=== PATIENT | male | born 1955 | race Caucasian/White ===

== ENCOUNTER 2017-12-22 14:40 | Inpatient (IN) | payer MEDICAID ==
[2017-12-22] MEDS ORDERED: Sodium Chloride 0.9% 1,000 ML IV ONE (16:23)
[2017-12-22 16:56] LABS: BASO # 0.1 K/uL (0.0-0.2); BASO % 0.9 % (0.0-2.0); EOS # 0.3 K/uL (0.0-0.7); EOS % 3.8 % (0.0-4.0); HEMOGLOBIN 12.4 g/dL (12.0-18.0); LYMPH # 1.8 K/uL (1.0-4.3); LYMPH % 23.9 % (20.0-40.0); MEAN CELL VOLUME 88.1 fL (80.0-94.0); MEAN CORPUSCULAR HGB CONC 35.2 g/dL (33.0-37.0); MEAN PLATELET VOLUME 6.4 fL (7.2-11.7); MONO # 0.6 K/uL (0.0-0.8); MONO % 8.1 % (0.0-10.0); NEUT # 4.7 K/uL (1.8-7.0); NEUT % 63.3 % (50.0-75.0); NRBC % 0.1 % (0.0-2.0); RED CELL DISTRIBUTION WIDTH 14.1 % (11.5-14.5); WHITE BLOOD COUNT 7.5 K/uL (4.8-10.8)
[2017-12-22 17:01] LABS: INR 1.1; PROTHROMBIN TIME 11.9 SECONDS (9.7-12.2)
--- NOTE | 2017-12-22 17:13 | C.PDOC ---
History Of Present Illness 62 yo male c/o left great toe wound. Pt notes that he has had a wound to the left toe for 8-10 months. It started out as a small punture wound and has undergoing treatment with podiatry, Dr Saba including XR and vascular studies. 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 Notes this sugar in usually around 100. No new trauma. Denies fever, chest pain, abdominal pain or any other symptoms. Time Seen by Provider: 12/22/17 15:20 Chief Complaint (Nursing): Abnormal Skin Integrity History Per: Patient, Family (family used for translation) History/Exam Limitations: no limitations Onset/Duration Of Symptoms: Gradual Past Medical History Vital Signs: Last Vital Signs Temp 98.3 F 12/22/17 21:00 Pulse 51 L 12/22/17 21:00 Resp 20 12/22/17 21:00 BP 190/76 H 12/22/17 21:00 Pulse Ox 100 12/22/17 21:00 - Medical History PMH: HTN, Hypercholesterolemia Family History: States: Unknown Family Hx - Social History Hx Alcohol Use: No Hx Substance Use: No Review Of Systems Except As Marked, All Systems Reviewed And Found Negative. Physical Exam - Physical Exam Appears: Well, Non-toxic, No Acute Distress Skin: Warm, Dry, Other ((+) 3 cm area of necrosis to the plantar aspect of the great toe) Head: Atraumatic, Normacephalic Eye(s): bilateral: Normal Inspection, EOMI Nose: Normal Throat: Normal Neck: Normal Cardiovascular: Rhythm Regular Respiratory: Normal Breath Sounds Gastrointestinal/Abdominal: Normal Exam Back: Normal Inspection Extremity: Normal ROM Pulses: Left Dorsalis Pedis: Decreased Neurological/Psych: Oriented x3, Normal Speech, Normal Sensation ED Course And Treatment - Laboratory Results Result Diagrams: 12/22/17 16:47 12/22/17 16:47 O2 Sat by Pulse Oximetry: 99 Progress Note: Case discussed with Dr Deluna, agreed upon admission. Dr Babs Saba was called and VM left, no call back. Disposition - Disposition Disposition: HOSPITALIZED Disposition Time: 17:18 Condition: STABLE - Clinical Impression Clinical Impression: Nonhealing ulcer of left lower extremity, Osteomyelitis
[2017-12-22 17:26] LABS: ALB/GLOB RATIO 1.2 (1.0-2.1); ALT/SGPT 25 U/L (21-72); AST/SGOT 23 U/L (17-59); BLOOD UREA NITROGEN 17 mg/dL (9-20); CALCIUM 9.6 mg/dl (8.6-10.4); GFR AFRICAN-AMERICAN > 60; GFR NON-AFRICAN AMERICAN > 60
--- NOTE | 2017-12-22 18:46 | RAD ---
PROCEDURE: Radiographs of the left great toe. TECHNIQUE:: AP radiograph of the left foot, with oblique and lateral view of the left great toe. Relevant clinical history: Left toe necrosis. COMPARISON: None. FINDINGS: BONES: Cortical irregularity best seen on the lateral view which may represent early osteomyelitis. JOINTS: Normal. SOFT TISSUES: Soft tissue swelling confined to the distal aspect of the 1st digit. OTHER FINDINGS: None. IMPRESSION: Cortical irregularity distal phalanx 1st digit. Associated soft tissue swelling. Suspicious findings for acute osteomyelitis.
[2017-12-22] MEDS ORDERED: Piperacillin/Tazobact 3.375 gm 100 ML IV STA (19:29)
[2017-12-22] MEDS ORDERED: Piperacillin/Tazobact 3.375 gm 100 ML IVPB ONE (19:44)
[2017-12-22] MEDS: (Novolog) Insulin Aspart, Recombinant 100 u/ml 10 ml vial SC SCH (22:00)
--- NOTE | 2017-12-22 23:12 | CP.PCM.HP ---
Past Patient History - Past Social History Smoking Status: Unknown If Ever Smoked - CARDIAC Hx Hypercholesterolemia: Yes Hx Hypertension: Yes - ENDOCRINE/METABOLIC Hx Endocrine Disorders: Yes Hx Diabetes Mellitus Type 2: Yes - MUSCULOSKELETAL/RHEUMATOLOGICAL Hx Falls: No - PSYCHIATRIC Hx Substance Use: No - SURGICAL HISTORY Hx Surgeries: Yes Hx Eye Surgery: Yes - ANESTHESIA Hx Anesthesia: Yes Meds Allergies/Adverse Reactions: Allergies Allergy/AdvReac Type Severity Reaction Status Date / Time No Known Allergies Allergy Verified 12/22/17 15:47 Results - Vital Signs Recent Vital Signs: Last Vital Signs Temp 98.3 F 12/22/17 21:00 Pulse 51 L 12/22/17 21:00 Resp 20 12/22/17 21:00 BP 190/76 H 12/22/17 21:00 Pulse Ox 99 12/22/17 21:30 - Labs Result Diagrams: 12/22/17 16:47 12/22/17 16:47 Labs: Laboratory Results - last 24 hr 12/22/17 12/22/17 12/22/17 16:47 16:47 16:47 WBC 7.5 RBC 4.00 L Hgb 12.4 Hct 35.2 MCV 88.1 MCH 31.0 MCHC 35.2 RDW 14.1 Plt Count 490 H MPV 6.4 L Neut % (Auto) 63.3 Lymph % (Auto) 23.9 [place] % (Auto) 8.1 Eos % (Auto) 3.8 Baso % (Auto) 0.9 Neut # (Auto) 4.7 Lymph # (Auto) 1.8 [place] # (Auto) 0.6 Eos # (Auto) 0.3 Baso # (Auto) 0.1 PT 11.9 INR 1.1 APTT 36 H Sodium 133 Potassium 5.3 H Chloride 96 L Carbon Dioxide 26 Anion Gap 16 BUN 17 Creatinine 0.9 Est GFR ( Amer) > 60 Est GFR (Non-Af Amer) > 60 Random Glucose 189 H Calcium 9.6 Total Bilirubin 0.4 AST 23 ALT 25 Alkaline Phosphatase 43 Total Protein 7.4 Albumin 4.0 Globulin 3.4 Albumin/Globulin Ratio 1.2 Blood Type Antibody Screen 12/22/17 16:47 WBC RBC Hgb Hct MCV MCH MCHC RDW Plt Count MPV Neut % (Auto) Lymph % (Auto) [place] % (Auto) Eos % (Auto) Baso % (Auto) Neut # (Auto) Lymph # (Auto) [place] # (Auto) Eos # (Auto) Baso # (Auto) PT INR APTT Sodium Potassium Chloride Carbon Dioxide Anion Gap BUN Creatinine Est GFR ( Amer) Est GFR (Non-Af Amer) Random Glucose Calcium Total Bilirubin AST ALT Alkaline Phosphatase Total Protein Albumin Globulin Albumin/Globulin Ratio Blood Type A POSITIVE Antibody Screen Negative
[2017-12-23] MEDS: Piperacill/Tazo 3.375gm in Dex 3.375 GM/50 ML BAG IVPB SCH ×3 (03:10→20:22)
--- NOTE | 2017-12-23 06:06 | CP.PCM.CON ---
History of Present Illness - History of Present Illness History of Present Illness: Surgery: Dr. Haro Reason for consult: left foot wound HPI: Patient is a 62 y/o male who presents complaining of a left foot wound for the past 8 months. He reports the wound was originally small but progressed and has not healed overtime. He reports seeing Podiatry for local wound care but because the wound was not healing they recommended ER evaluation. he denies f/c/ n/v. He denies purulent drainage from wound. PMH: HTN, HLD, DM PSH: denies Social: denies ETOH, tobacco, or drug use Review of Systems - Review of Systems Review of Systems: otherwise negative unless stated in HPI Past Patient History - Past Social History Smoking Status: Never Smoked - CARDIAC Hx Hypercholesterolemia: Yes Hx Hypertension: Yes - ENDOCRINE/METABOLIC Hx Endocrine Disorders: Yes Hx Diabetes Mellitus Type 2: Yes - MUSCULOSKELETAL/RHEUMATOLOGICAL Hx Falls: No - PSYCHIATRIC Hx Substance Use: No - SURGICAL HISTORY Hx Surgeries: Yes Hx Eye Surgery: Yes - ANESTHESIA Hx Anesthesia: Yes Meds Allergies/Adverse Reactions: Allergies Allergy/AdvReac Type Severity Reaction Status Date / Time No Known Allergies Allergy Verified 12/22/17 15:47 - Medications Medications: Current Medications Amlodipine Besylate (Norvasc) 10 mg PO DAILY [facility] Enoxaparin Sodium (Lovenox) 40 mg SC DAILY [facility] Glimepiride (Amaryl) 2 mg PO BID [facility] Piperacillin Sod/Tazobactam Sod (Zosyn 3.375 Gm Iv Premix) 3.375 gm in 50 mls @ 200 mls/hr IVPB Q8H DIA PRN Reason: Protocol Last Admin: 12/23/17 03:10 Dose: 200 mls/hr Vancomycin/Sodium Chloride (Vancomycin 1 Gm/Ns 200 Ml) 1 gm in 200 mls @ 133 mls/hr IVPB Q12H DIA PRN Reason: Protocol Stop: 12/27/17 23:31 Last Admin: 12/23/17 00:00 Dose: 133 mls/hr Insulin Aspart (Novolog) 0 unit SC ACHS [facility] PRN Reason: Protocol Last Admin: 12/22/17 22:00 Dose: Not Given Metformin HCl (Glucophage) 500 mg PO BID [facility] Pioglitazone HCl (Actos) 15 mg PO BID [facility] Physical Exam - Constitutional Appears: Non-toxic, No Acute Distress - Head Exam Head Exam: ATRAUMATIC, NORMOCEPHALIC - Eye Exam Eye Exam: EOMI, Normal appearance - ENT Exam ENT Exam: Mucous Membranes Moist - Respiratory Exam Respiratory Exam: NORMAL BREATHING PATTERN. absent: Respiratory Distress - Cardiovascular Exam Cardiovascular Exam: REGULAR RHYTHM. absent: Tachycardia - GI/Abdominal Exam GI & Abdominal Exam: Soft. absent: Distended, Tenderness - Extremities Exam Extremities exam: Positive for: normal inspection. Negative for: calf tenderness Additional comments: palpable pulses DP bilaterally. Dry gangrene to plantar surface of left great toe Results - Vital Signs Recent Vital Signs: Last Vital Signs Temp 98.5 F 12/23/17 00:00 Pulse 60 12/23/17 00:00 Resp 20 12/23/17 00:00 BP 179/69 H 12/23/17 00:00 Pulse Ox 97 12/23/17 00:00 - Labs Result Diagrams: 12/22/17 16:47 12/22/17 16:47 Labs: Laboratory Results - last 24 hr 12/22/17 12/22/17 12/22/17 16:47 16:47 16:47 WBC 7.5 RBC 4.00 L Hgb 12.4 Hct 35.2 MCV 88.1 MCH 31.0 MCHC 35.2 RDW 14.1 Plt Count 490 H MPV 6.4 L Neut % (Auto) 63.3 Lymph % (Auto) 23.9 [place] % (Auto) 8.1 Eos % (Auto) 3.8 Baso % (Auto) 0.9 Neut # (Auto) 4.7 Lymph # (Auto) 1.8 [place] # (Auto) 0.6 Eos # (Auto) 0.3 Baso # (Auto) 0.1 PT 11.9 INR 1.1 APTT 36 H Sodium 133 Potassium 5.3 H Chloride 96 L Carbon Dioxide 26 Anion Gap 16 BUN 17 Creatinine 0.9 Est GFR ( Amer) > 60 Est GFR (Non-Af Amer) > 60 Random Glucose 189 H Calcium 9.6 Total Bilirubin 0.4 AST 23 ALT 25 Alkaline Phosphatase 43 Total Protein 7.4 Albumin 4.0 Globulin 3.4 Albumin/Globulin Ratio 1.2 Blood Type Antibody Screen 12/22/17 16:47 WBC RBC Hgb Hct MCV MCH MCHC RDW Plt Count MPV Neut % (Auto) Lymph % (Auto) [place] % (Auto) Eos % (Auto) Baso % (Auto) Neut # (Auto) Lymph # (Auto) [place] # (Auto) Eos # (Auto) Baso # (Auto) PT INR APTT Sodium Potassium Chloride Carbon Dioxide Anion Gap BUN Creatinine Est GFR ( Amer) Est GFR (Non-Af Amer) Random Glucose Calcium Total Bilirubin AST ALT Alkaline Phosphatase Total Protein Albumin Globulin Albumin/Globulin Ratio Blood Type A POSITIVE Antibody Screen Negative Assessment & Plan - Assessment and Plan (Free Text) Assessment: 62 y/o male w/ nonhealing left foot wound Plan: r/o vascular disease ABIs/PVRs local wound care- may need local debridement Podiatry consult pending results determine further surgical intervention further recs per Dr. Estrellita Milligan PGY3
[2017-12-23] MEDS: (Novolog) Insulin Aspart, Recombinant 100 u/ml 10 ml vial SC SCH ×4 (07:30→22:26)
[2017-12-23] MEDS: Enoxaparin 40 mg Syringe SC SCH (09:07)
--- NOTE | 2017-12-23 09:36 | CP.PCM.PN ---
Subjective - Date & Time of Evaluation Date of Evaluation: 12/23/17 Time of Evaluation: 07:40 - Subjective Subjective: clinically same Objective - Vital Signs/Intake and Output Vital Signs (last 24 hours): Temp Pulse Resp BP Pulse Ox 98.1 F 60 21 114/45 L 95 12/23/17 07:00 12/23/17 07:00 12/23/17 07:00 12/23/17 07:00 12/23/17 07:00 Intake and Output: 12/23/17 12/23/17 06:59 18:59 Intake Total 1100 Balance 1100 - Medications Medications: Current Medications Amlodipine Besylate (Norvasc) 10 mg PO DAILY [facility] Enoxaparin Sodium (Lovenox) 40 mg SC DAILY [facility] Last Admin: 12/23/17 09:07 Dose: 40 mg Glimepiride (Amaryl) 2 mg PO BID [facility] Last Admin: 12/23/17 09:06 Dose: 2 mg Piperacillin Sod/Tazobactam Sod (Zosyn 3.375 Gm Iv Premix) 3.375 gm in 50 mls @ 200 mls/hr IVPB Q8H DIA PRN Reason: Protocol Last Admin: 12/23/17 03:10 Dose: 200 mls/hr Vancomycin/Sodium Chloride (Vancomycin 1 Gm/Ns 200 Ml) 1 gm in 200 mls @ 133 mls/hr IVPB Q12H DIA PRN Reason: Protocol Stop: 12/27/17 23:31 Last Admin: 12/23/17 00:00 Dose: 133 mls/hr Insulin Aspart (Novolog) 0 unit SC ACHS DIA PRN Reason: Protocol Last Admin: 12/23/17 07:30 Dose: 1 unit Metformin HCl (Glucophage) 500 mg PO BID [facility] Last Admin: 12/23/17 09:06 Dose: 500 mg Pioglitazone HCl (Actos) 15 mg PO BID [facility] - Labs Labs: 12/22/17 16:47 12/22/17 16:47 PT 11.9 SECONDS (9.7-12.2) 12/22/17 16:47 INR 1.1 12/22/17 16:47 APTT 36 SECONDS (21-34) H 12/22/17 16:47 - Constitutional Appears: Well - Head Exam Head Exam: ATRAUMATIC, NORMAL INSPECTION, NORMOCEPHALIC - Eye Exam Eye Exam: EOMI, Normal appearance, PERRL Pupil Exam: NORMAL ACCOMODATION, PERRL - ENT Exam ENT Exam: Mucous Membranes Moist, Normal Exam - Neck Exam Neck Exam: Full ROM, Normal Inspection. absent: Lymphadenopathy - Respiratory Exam Respiratory Exam: Decreased Breath Sounds - Cardiovascular Exam Cardiovascular Exam: REGULAR RHYTHM, +S1, +S2 - GI/Abdominal Exam GI & Abdominal Exam: Soft, Diminished Bowel Sounds - Rectal Exam Rectal Exam: Deferred
--- NOTE | 2017-12-23 10:37 | CP.PCM.PN ---
Subjective - Date & Time of Evaluation Date of Evaluation: 12/23/17 Time of Evaluation: 10:36 - Subjective Subjective: awating dopplers I am unable to palpate pulses established gangrene of great toe left Objective - Vital Signs/Intake and Output Vital Signs (last 24 hours): Temp Pulse Resp BP Pulse Ox 98.1 F 60 21 114/45 L 95 12/23/17 07:00 12/23/17 07:00 12/23/17 07:00 12/23/17 07:00 12/23/17 07:00 Intake and Output: 12/23/17 12/23/17 06:59 18:59 Intake Total 1100 Balance 1100 - Medications Medications: Current Medications Amlodipine Besylate (Norvasc) 10 mg PO DAILY [facility] Enoxaparin Sodium (Lovenox) 40 mg SC DAILY [facility] Last Admin: 12/23/17 09:07 Dose: 40 mg Glimepiride (Amaryl) 2 mg PO BID [facility] Last Admin: 12/23/17 09:06 Dose: 2 mg Piperacillin Sod/Tazobactam Sod (Zosyn 3.375 Gm Iv Premix) 3.375 gm in 50 mls @ 200 mls/hr IVPB Q8H DIA PRN Reason: Protocol Last Admin: 12/23/17 03:10 Dose: 200 mls/hr Vancomycin/Sodium Chloride (Vancomycin 1 Gm/Ns 200 Ml) 1 gm in 200 mls @ 133 mls/hr IVPB Q12H DIA PRN Reason: Protocol Stop: 12/27/17 23:31 Last Admin: 12/23/17 00:00 Dose: 133 mls/hr Insulin Aspart (Novolog) 0 unit SC ACHS DIA PRN Reason: Protocol Last Admin: 12/23/17 07:30 Dose: 1 unit Metformin HCl (Glucophage) 500 mg PO BID [facility] Last Admin: 12/23/17 09:06 Dose: 500 mg Pioglitazone HCl (Actos) 15 mg PO BID [facility] Last Admin: 12/23/17 09:40 Dose: 15 mg - Labs Labs: 12/22/17 16:47 12/22/17 16:47 PT 11.9 SECONDS (9.7-12.2) 12/22/17 16:47 INR 1.1 12/22/17 16:47 APTT 36 SECONDS (21-34) H 12/22/17 16:47
[2017-12-23] MEDS ORDERED: Iodixanol 320 mg/ml 150 ml Bottle IV ONE (11:37)
[2017-12-23] MEDS: Vancomycin 1 gm/NS 200 ml 1 GM/200 ML BAG IVPB SCH ×2 (11:56)
[2017-12-23 16:32] VITALS: RESP 20
--- NOTE | 2017-12-23 17:50 | CP.PCM.CON ---
History of Present Illness - History of Present Illness History of Present Illness: dictated Past Patient History - Past Social History Smoking Status: Never Smoked - CARDIAC Hx Hypercholesterolemia: Yes Hx Hypertension: Yes - ENDOCRINE/METABOLIC Hx Endocrine Disorders: Yes Hx Diabetes Mellitus Type 2: Yes - MUSCULOSKELETAL/RHEUMATOLOGICAL Hx Falls: No - PSYCHIATRIC Hx Substance Use: No - SURGICAL HISTORY Hx Surgeries: Yes Hx Eye Surgery: Yes - ANESTHESIA Hx Anesthesia: Yes Meds Allergies/Adverse Reactions: Allergies Allergy/AdvReac Type Severity Reaction Status Date / Time No Known Allergies Allergy Verified 12/22/17 15:47 - Medications Medications: Current Medications Amlodipine Besylate (Norvasc) 10 mg PO DAILY [facility] Last Admin: 12/23/17 10:00 Dose: 10 mg Enoxaparin Sodium (Lovenox) 40 mg SC DAILY [facility] Last Admin: 12/23/17 09:07 Dose: 40 mg Glimepiride (Amaryl) 2 mg PO BID [facility] Last Admin: 12/23/17 17:09 Dose: 2 mg Piperacillin Sod/Tazobactam Sod (Zosyn 3.375 Gm Iv Premix) 3.375 gm in 50 mls @ 200 mls/hr IVPB Q8H DIA PRN Reason: Protocol Last Admin: 12/23/17 11:57 Dose: 200 mls/hr Vancomycin/Sodium Chloride (Vancomycin 1 Gm/Ns 200 Ml) 1 gm in 200 mls @ 133 mls/hr IVPB Q12H DIA PRN Reason: Protocol Stop: 12/27/17 23:31 Last Admin: 12/23/17 11:56 Dose: 133 mls/hr Insulin Aspart (Novolog) 0 unit SC ACHS [facility] PRN Reason: Protocol Last Admin: 12/23/17 16:58 Dose: Not Given Metformin HCl (Glucophage) 500 mg PO BID [facility] Last Admin: 12/23/17 17:09 Dose: 500 mg Pioglitazone HCl (Actos) 15 mg PO BID [facility] Last Admin: 12/23/17 17:09 Dose: 15 mg Results - Vital Signs Recent Vital Signs: Last Vital Signs Temp 98.2 F 12/23/17 16:31 Pulse 59 L 12/23/17 16:31 Resp 20 12/23/17 16:31 BP 168/78 H 12/23/17 16:31 Pulse Ox 100 12/23/17 16:31 - Labs Result Diagrams: 12/22/17 16:47 05/18/18 16:47 Labs: Laboratory Results - last 24 hr 12/23/17 06:56 POC Glucose (mg/dL) 154 H
--- NOTE | 2017-12-24 02:39 | CON ---
DATE: 12/23/2017 REQUESTED BY: Dr. Arnav Deluna. HISTORY OF PRESENT ILLNESS: This patient is a 62-year-old male. He has history of diabetes and he says he takes medication for it and he has had it for more than 20 years, comes with a left great toe wound which has not been healing since 8-10 months he says, it was a small wound, he does not know how he got it, he was following with bird sitter, but it was increasing in size and he was suggested to come to the emergency room for further evaluation and he got admitted here. He denies any pain in the lower extremities, but he probably has diabetic neuropathy as he says his diabetes is for more than 20 years. Denied any fevers, but has this wound that was increasing in size, he was admitted yesterday. PAST MEDICAL HISTORY: He has diabetes and hypertension and high cholesterol. PAST SURGICAL HISTORY: He had eye surgeries in the past he says. Denies any other surgeries. FAMILY HISTORY: Otherwise unknown. SOCIAL HISTORY: Negative for smoking or drinking. No drug abuse. REVIEW OF SYSTEMS: He denies any headache. Denies any ear, nose, throat problems. No chest pain, no shortness of breath. No abdominal pain. No nausea, no vomiting, no diarrhea. No urinary symptoms reported. He does have this nonhealing left great toe necrotic ulcer which has is draining and is dry but has been increasing in size, the right foot is unremarkable. He denies any other his skin infections at this time. Denies any neurological problems; however, he is not feeling any pain in the lower extremities. PHYSICAL EXAMINATION: VITAL SIGNS: Temperature is 98.2, pulse 59, blood pressure 168/78, respirations are 20. HEENT: Head is atraumatic, normocephalic. He speaks [place]. Pupils are reacting to light. NECK: Supple. JVP is flat. LUNGS: Clear to auscultation. No crackles or rales present. HEART: S1, S2 is regular. ABDOMEN: Soft, nontender. No guarding, no rigidity present. EXTREMITIES: Left foot has this dry ulcer and the great toe is swollen and it is suspicious for osteomyelitis. LABORATORY DATA: I would have to look up if there was any previous studies which were done and so it looks like they did foot x-ray was done on 12/22/2017 which shows cortical irregularity distal phalanx associated soft tissue swelling suspicious findings for acute osteomyelitis, so probably he does have osteomyelitis and they are doing vascular studies and he is being seen. He also had lower extremity arterial Dopplers the reports of which are pending at this time. Other labs were noted. His potassium is 5.3, chlorides are 96, BUN is 17, creatinine 0.9, white count is 7.5, hemoglobin 12.4, hematocrit 35.2, platelet count is 490 and glucose was 154. ASSESSMENT AND PLAN: So he is diabetic, so we will get an ESR and CRP and we will follow. He will need a Podiatry evaluation for debridement and will follow with bird sitter, vascular surgeon as well as Dr. Deluna and may possibly have osteomyelitis and waiting for podiatry evaluation. Tiffany Blancas MD
[2017-12-24] MEDS: Piperacill/Tazo 3.375gm in Dex 3.375 GM/50 ML BAG IVPB SCH ×3 (03:30→20:00)
[2017-12-24 06:27] LABS: URINE BILIRUBIN NEGATIVE (NEGATIVE); URINE BLOOD NEGATIVE (NEGATIVE); URINE CLARITY Clear (Clear); URINE COLOR Straw (YELLOW); URINE GLUCOSE (UA) 1+ mg/dL (Normal); URINE LEUKOCYTE ESTERASE NEG Leu/uL (Negative); URINE PROTEIN NEGATIVE (NEGATIVE); URINE UROBILINOGEN NORMAL mg/dL (0.2-1.0)
[2017-12-24] MEDS: (Novolog) Insulin Aspart, Recombinant 100 u/ml 10 ml vial SC SCH ×4 (07:30→22:00)
[2017-12-24 09:11] LABS: BASO # 0.1 K/uL (0.0-0.2); BASO % 0.9 % (0.0-2.0); EOS # 0.3 K/uL (0.0-0.7); EOS % 3.9 % (0.0-4.0); HEMOGLOBIN 11.7 g/dL (12.0-18.0); LYMPH # 1.2 K/uL (1.0-4.3); LYMPH % 15.7 % (20.0-40.0); MEAN CELL VOLUME 88.7 fL (80.0-94.0); MEAN CORPUSCULAR HEMOGLOBIN 30.9 pg (27.0-31.0); MEAN CORPUSCULAR HGB CONC 34.9 g/dL (33.0-37.0); MEAN PLATELET VOLUME 6.8 fL (7.2-11.7); MONO # 0.8 K/uL (0.0-0.8); MONO % 9.8 % (0.0-10.0); NEUT # 5.5 K/uL (1.8-7.0); NEUT % 69.7 % (50.0-75.0); RBC 3.78 Mil/uL (4.40-5.90); RED CELL DISTRIBUTION WIDTH 14.3 % (11.5-14.5); WHITE BLOOD COUNT 7.9 K/uL (4.8-10.8)
[2017-12-24] MEDS: Enoxaparin 40 mg Syringe SC SCH (09:17)
[2017-12-24 09:33] LABS: ALB/GLOB RATIO 1.2 (1.0-2.1); ALBUMIN 3.7 g/dL (3.5-5.0); ALT/SGPT 22 U/L (21-72); AST/SGOT 18 U/L (17-59); BLOOD UREA NITROGEN 13 mg/dL (9-20); CALCIUM 9.1 mg/dl (8.6-10.4); GFR AFRICAN-AMERICAN > 60; GFR NON-AFRICAN AMERICAN > 60
--- NOTE | 2017-12-24 10:17 | CP.PCM.PN ---
Subjective - Date & Time of Evaluation Date of Evaluation: 12/24/17 Time of Evaluation: 10:14 - Subjective Subjective: Vascular Surgery Progress Note for Dr. Haro This 62M was seen and examined this AM at bedside no acute events overnight. Denies any chest pain or SOB. No new complaints at this time. Objective - Vital Signs/Intake and Output Vital Signs (last 24 hours): Temp Pulse Resp BP Pulse Ox 98.1 F 66 20 142/65 97 12/24/17 00:00 12/24/17 06:00 12/24/17 06:00 12/24/17 06:00 12/24/17 06:00 Intake and Output: 12/24/17 12/24/17 06:59 18:59 Intake Total 550 Balance 550 - Medications Medications: Current Medications Amlodipine Besylate (Norvasc) 10 mg PO DAILY [facility] Last Admin: 12/24/17 09:18 Dose: 10 mg Enoxaparin Sodium (Lovenox) 40 mg SC DAILY [facility] Last Admin: 12/24/17 09:17 Dose: 40 mg Glimepiride (Amaryl) 2 mg PO BID [facility] Last Admin: 12/24/17 09:17 Dose: 2 mg Piperacillin Sod/Tazobactam Sod (Zosyn 3.375 Gm Iv Premix) 3.375 gm in 50 mls @ 200 mls/hr IVPB Q8H DIA PRN Reason: Protocol Last Admin: 12/24/17 03:30 Dose: 200 mls/hr Vancomycin/Sodium Chloride (Vancomycin 1 Gm/Ns 200 Ml) 1 gm in 200 mls @ 133 mls/hr IVPB Q12H DIA PRN Reason: Protocol Stop: 12/27/17 23:31 Last Admin: 12/24/17 00:00 Dose: 133 mls/hr Insulin Aspart (Novolog) 0 unit SC ACHS DIA PRN Reason: Protocol Last Admin: 12/24/17 07:30 Dose: 2 unit Metformin HCl (Glucophage) 500 mg PO BID [facility] Last Admin: 12/24/17 09:17 Dose: 500 mg Pioglitazone HCl (Actos) 15 mg PO BID [facility] Last Admin: 12/24/17 09:17 Dose: 15 mg - Labs Labs: 12/24/17 08:53 12/24/17 08:53 PT 11.9 SECONDS (9.7-12.2) 12/22/17 16:47 INR 1.1 12/22/17 16:47 APTT 36 SECONDS (21-34) H 12/22/17 16:47 - Constitutional Appears: Non-toxic, No Acute Distress - Head Exam Head Exam: ATRAUMATIC, NORMOCEPHALIC - Eye Exam Eye Exam: EOMI - ENT Exam ENT Exam: Mucous Membranes Moist - Respiratory Exam Respiratory Exam: NORMAL BREATHING PATTERN - Cardiovascular Exam Cardiovascular Exam: +S1, +S2 - GI/Abdominal Exam GI & Abdominal Exam: Soft - Extremities Exam Additional comments: Pedal pulses absent left hallux necrotic ulcer, feet warm bilaterally - Neurological Exam Neurological Exam: Alert, Awake - Psychiatric Exam Psychiatric exam: Normal Affect, Normal Mood - Skin Skin Exam: Dry, Intact Assessment and Plan - Assessment and Plan (Free Text) Assessment: 62M with left necrotic toe ulcer Vascular studies unremarkable so surgical intervention d/w Dr. Estrellita Rodriguez PGY2
[2017-12-24] MEDS: Vancomycin 1 gm/NS 200 ml 1 GM/200 ML BAG IVPB SCH ×3 (11:30→23:56)
--- NOTE | 2017-12-24 13:21 | CT ---
PROCEDURE: CT Angiography Abdomen, Pelvis and Lower Extremity with Contrast HISTORY: gangrene of left great toe COMPARISON: No prior similar study available for comparison. Arterial Doppler study was done on the same day. TECHNIQUE: Technique: CT angiography of the abdomen, pelvis and bilateral lower extremities performed in the arterial phase of enhancement. Coronal and sagittal reformats, and well as rotating MIP images of the vessels generated at the workstation. Intravenous contrast dose: 150 mL Visipaque Radiation dose: Total exam DLP = 1348.72 mGy-cm. This CT exam was performed using one or more of the following dose reduction techniques: Automated exposure control, adjustment of the mA and/or kV according to patient size, and/or use of iterative reconstruction technique. FINDINGS: CT ANGIOGRAPHY: ABDOMINAL AORTA:: Mild atherosclerotic disease noted in the abdominal aorta. No evidence of significant stenosis. No evidence of aneurysm. . MAJOR AORTIC BRANCHES: Celiac [place]: Celiac trunk is patent. Superior mesenteric artery: The superior mesenteric artery is patent. Inferior mesenteric artery: Unremarkable. Renal arteries: Unremarkable. PELVIC ARTERIES: Right Common Iliac: Mild atherosclerotic disease. Right External Iliac: Mild atherosclerotic disease. Right Internal Iliac: Mild atherosclerotic disease Left Common Iliac: Mild atherosclerotic disease without evidence of significant stenosis Left External Iliac: Unremarkable. Left Internal Iliac: Unremarkable. RIGHT LOWER EXTREMITY ARTERIES: Right Common Femoral: [id number] atherosclerotic disease and small foci of atherosclerotic calcification without evidence of significant stenosis. Right Superficial Femoral: [id number]-[id number] atherosclerotic disease without significant stenosis. Right Profunda Femoris: Unremarkable. Right Popliteal:Moderate atherosclerotic disease. Focal mild 50 percent stenosis seen. Right Anterior Tibial: Patent Right Tibioperoneal Trunk: Unremarkable. Right Posterior Tibial: Occlusion of the distal right posterior tibial artery. Right Peroneal: Unremarkable. Right dorsalis pedis : Unremarkable. LEFT LOWER EXTREMITY ARTERIES: Left Common Femoral: [id number] atherosclerotic disease. No significant focal stenosis. Left Superficial Femoral: Gedw-bx-fbwhbieu atherosclerotic disease. Left Profunda Femoris: Unremarkable. Left Popliteal: Moderate atherosclerotic disease. Foci of mild less than 50 percent stenosis noted at the mid popliteal artery. Left Anterior Tibial: Patent. Left Tibioperoneal Trunk: Patent Left Posterior Tibial: Patent Left Peronea: Unremarkable. Left Dorsalis pedis: Unremarkable. NON-ANGIOGRAPHIC ASPECT OF THE EXAM: LOWER THORAX: No acute pathology noted. LIVER: No evidence of acute pathology or suspicious mass GALLBLADDER AND BILE DUCTS: Unremarkable. PANCREAS: Diffuse calcifications seen in the pancreas suggestive of chronic pancreatitis. SPLEEN: Unremarkable. ADRENALS: Unremarkable. No mass. KIDNEYS AND URETERS: Unremarkable. No hydronephrosis. No solid mass. STOMACH AND BOWEL: The stomach is mildly to moderately distended. No evidence of small bowel obstruction. Mild constipation is noted. APPENDIX: No evidence of appendicitis. PERITONEUM: Unremarkable. No free fluid. No free air. LYMPH NODES: Unremarkable. No enlarged lymph nodes. BLADDER: Mild urinary bladder wall thickening. REPRODUCTIVE: Unremarkable. BONES: No acute fracture. OTHER FINDINGS: None. IMPRESSION: Wagl-ys-[id number] atherosclerotic disease. Three vessels runoff in the lower extremities. Diffuse atherosclerotic calcification in the distal lower extremities especially in the posterior tibial arteries. Diffuse calcification in the pancreas consistent with chronic pancreatitis. Preliminary report was submitted by [facility] Radiology.
--- NOTE | 2017-12-24 15:29 | CP.PCM.PN ---
Subjective - Date & Time of Evaluation Date of Evaluation: 12/24/17 Time of Evaluation: 07:40 - Subjective Subjective: clinically same Objective - Vital Signs/Intake and Output Vital Signs (last 24 hours): Temp Pulse Resp BP Pulse Ox 97.5 F L 66 20 115/70 97 12/24/17 10:00 12/24/17 10:00 12/24/17 10:00 12/24/17 10:00 12/24/17 06:00 Intake and Output: 12/24/17 12/24/17 06:59 18:59 Intake Total 550 Balance 550 - Medications Medications: Current Medications Amlodipine Besylate (Norvasc) 10 mg PO DAILY [facility] Last Admin: 12/24/17 09:18 Dose: 10 mg Enoxaparin Sodium (Lovenox) 40 mg SC DAILY [facility] Last Admin: 12/24/17 09:17 Dose: 40 mg Glimepiride (Amaryl) 2 mg PO BID [facility] Last Admin: 12/24/17 09:17 Dose: 2 mg Piperacillin Sod/Tazobactam Sod (Zosyn 3.375 Gm Iv Premix) 3.375 gm in 50 mls @ 200 mls/hr IVPB Q8H DIA PRN Reason: Protocol Last Admin: 12/24/17 12:05 Dose: 200 mls/hr Vancomycin/Sodium Chloride (Vancomycin 1 Gm/Ns 200 Ml) 1 gm in 200 mls @ 133 mls/hr IVPB Q12H DIA PRN Reason: Protocol Stop: 12/27/17 23:31 Last Admin: 12/24/17 11:30 Dose: 133 mls/hr Insulin Aspart (Novolog) 0 unit SC ACHS DIA PRN Reason: Protocol Last Admin: 12/24/17 11:30 Dose: Not Given Metformin HCl (Glucophage) 500 mg PO BID [facility] Last Admin: 12/24/17 09:17 Dose: 500 mg Pioglitazone HCl (Actos) 15 mg PO BID [facility] Last Admin: 12/24/17 09:17 Dose: 15 mg - Labs Labs: 12/24/17 08:53 12/24/17 08:53 PT 11.9 SECONDS (9.7-12.2) 12/22/17 16:47 INR 1.1 12/22/17 16:47 APTT 36 SECONDS (21-34) H 12/22/17 16:47 - Constitutional Appears: Well - Head Exam Head Exam: ATRAUMATIC, NORMAL INSPECTION, NORMOCEPHALIC - Eye Exam Eye Exam: EOMI, Normal appearance, PERRL Pupil Exam: NORMAL ACCOMODATION, PERRL - ENT Exam ENT Exam: Mucous Membranes Moist, Normal Exam - Neck Exam Neck Exam: Full ROM, Normal Inspection. absent: Lymphadenopathy - Respiratory Exam Respiratory Exam: Decreased Breath Sounds - Cardiovascular Exam Cardiovascular Exam: REGULAR RHYTHM, +S1, +S2 - GI/Abdominal Exam GI & Abdominal Exam: Soft, Diminished Bowel Sounds - Rectal Exam Rectal Exam: Deferred
[2017-12-25] MEDS: Piperacill/Tazo 3.375gm in Dex 3.375 GM/50 ML BAG IVPB SCH ×3 (03:10→20:00)
[2017-12-25] MEDS: (Novolog) Insulin Aspart, Recombinant 100 u/ml 10 ml vial SC SCH ×4 (08:50→21:33)
--- NOTE | 2017-12-25 09:14 | VASCLAB ---
PROCEDURE: Lower Extremity Venous Duplex Exam. HISTORY: left toe necrotic B/l LE edema/pain PRIORS: None. TECHNIQUE: Bilateral common femoral, femoral, popliteal and posterior tibial, peroneal and great saphenous veins were evaluated. Flow was assessed with color Doppler, compressibility, assessment of phasic flow and augmentation response. Report prepared by Gerardo Quesada, RVT FINDINGS: RIGHT: 1. Common Femoral Vein: 1.1. Compressibility - Fully compressible: Thrombus - None : Flow - Phasic: Augmentation -Normal: Reflux - . 2. Femoral Vein: 2.1. Compressibility - Fully compressible: Thrombus - None : Flow - Phasic: Augmentation -Normal: Reflux - . 3. Popliteal Vein: 3.1. Compressibility - Fully compressible: Thrombus - None : Flow - Phasic: Augmentation -Normal: Reflux - . 4. Posterior Tibial Vein: 4.1. Compressibility - Fully compressible: Thrombus - None: Flow - : Augmentation -: Reflux - . 5. Peroneal Vein: 5.1. Compressibility - Fully compressible: Thrombus - None: Flow - : Augmentation -: Reflux - . 6. Great Saphenous Vein: 6.1. Compressibility - Fully compressible: Thrombus - None: Flow - Phasic: Augmentation - : Reflux - . LEFT: 1. Common Femoral Vein: 1.1. Compressibility - Fully compressible: Thrombus - None: Flow - Phasic: Augmentation -Normal: Reflux - . 2. Femoral Vein: 2.1. Compressibility - Fully compressible: Thrombus - None: Flow - Phasic: Augmentation -Normal: Reflux - . 3. Popliteal Vein: 3.1. Compressibility - Fully compressible: Thrombus - None : Flow - Phasic: Augmentation -Normal: Reflux - . 4. Posterior Tibial Vein: 4.1. Compressibility - Fully compressible: Thrombus - None: Flow - : Augmentation -: Reflux - . 5. Peroneal Vein: 5.1. Compressibility - Fully compressible: Thrombus - None: Flow - : Augmentation -: Reflux - . 6. Great Saphenous Vein: 6.1. Compressibility - Fully compressible: Thrombus - None: Flow - Phasic: Augmentation - : Reflux - . OTHER FINDINGS: Right: None significant. Left: None significant. IMPRESSION: Right: No evidence of deep or superficial vein thrombosis of the right lower extremity. Left: No evidence of deep or superficial vein thrombosis of the left lower extremity.
--- NOTE | 2017-12-25 09:19 | VASCLAB ---
PROCEDURE: HISTORY: left big toe necrotic wound(Gangrene), PAD COMPARISON: None available. TECHNIQUE: Grayscale and duplex Doppler evaluation of the bilateral common femoral, femoral, profunda femoral, popliteal, posterior tibial, anterior tibial and dorsalis pedis arteries was performed. Report prepared by Gerardo Quesada RVT FINDINGS: LEFT LOWER EXTREMITY: * Common Femoral Artery: Peak Systolic Velocity - 73.2: Doppler Waveform: Triphasic: Plaque description - Calcific * Profunda Femoral Artery: Peak Systolic Velocity - 42.1: Doppler Waveform: Biphasic.: Plaque description - * Femoral Artery o Proximal Segment: Peak Systolic Velocity - 63.3: Doppler Waveform: Biphasic: Plaque description - Heterogeneous o Middle Segment: Peak Systolic Velocity - 80.3: Doppler Waveform: Biphasic: Plaque description - Heterogeneous o Distal Segment: Peak Systolic Velocity - 51.9: Doppler Waveform: Biphasic: Plaque description - Heterogeneous * Popliteal Artery o Proximal Segment: Peak Systolic Velocity - 87.88: Doppler Waveform: Biphasic: Plaque description - Heterogeneous o Middle Segment: Peak Systolic Velocity - 72.8: Doppler Waveform: Biphasic: Plaque description - Heterogeneous o Distal Segment: Peak Systolic Velocity - 100.7: Doppler Waveform: Biphasic: Plaque description - Heterogeneous * Posterior Tibial Artery: Peak Systolic Velocity - 54.4: Doppler Waveform: Monophasic: Plaque description - Calcific * Anterior Tibial Artery: Peak Systolic Velocity - 74.5: Doppler Waveform: Monophasic: Plaque description - Calcific * Dorsalis Pedis Artery: Peak Systolic Velocity - : Doppler Waveform: : Plaque description - OTHER FINDINGS: None. IMPRESSION: Left: Real time combine with Duplex examination of the entire lower extremity was performed. There was moderate generalized atherosclerotic arteries with mostly monophasic flow noted in the infrapopliteal level.
--- NOTE | 2017-12-25 09:20 | VASCLAB ---
STUDY DESCRIPTION: HISTORY: left toe wound Left big toe necrotic ulceration(gangrene) PRIORS: None. TECHNIQUE: Pulse volume recording waveforms and segmental pressures of bilateral lower extremities at multiple levels were obtained. Ankle Brachial Indices (ABIs) were calculated. Report prepared by Gerardo Quesada RVT RIGHT LOWER EXTREMITY: * Brachial artery: Pressure - IV mmHg. * High thigh: Pressure - 220 mmHg: Ratio - 1.36: PVR waveform - Pulsatile * Low thigh: Pressure - 220 mmHg: Ratio - 1.36 PVR waveform: Pulsatile * Calf: Pressure - 220 mmHg: Ratio - 1.36 PVR waveform: Pulsatile * Posterior tibial Artery: Pressure - 85 mmHg: Ratio - 0.52 PVR waveform: Pulsatile * Dorsalis pedis Artery: Pressure - 220 mmHg: Ratio - 1.36 PVR waveform: Pulsatile * Great toe: Pressure - 91 mmHg: Ratio - 0.56 PVR waveform: Reduced Ankle brachial index (SENG): 1.36 TBI 0.56 LEFT LOWER EXTREMITY: * Brachial artery: Pressure - 162 mmHg. * High thigh: Pressure - 220 mmHg: Ratio - 1.36: PVR waveform - Pulsatile * Low thigh: Pressure - 220 mmHg: Ratio - 1.36 PVR waveform: Pulsatile * Calf: Pressure - 220 mmHg: Ratio - 1.36 PVR waveform: Pulsatile * Posterior tibial Artery: Pressure - 212 mmHg: Ratio - 1.31 PVR waveform: Pulsatile * Dorsalis pedis Artery: Pressure - 197 mmHg: Ratio - 1.22 PVR waveform: Pulsatile * Great toe: Pressure - 87 mmHg: Ratio - 0.54 PVR waveform: Reduced Ankle brachial index (SENG): 1.31 TBI 0.54 OTHER FINDINGS: Right: See lower digits PPG's. Left: See lower digits PPG's. IMPRESSION: Right: There was arterial calcification and small vessels disease noted. Left: There was arterial calcification and small vessels disease noted.
[2017-12-25] MEDS: Enoxaparin 40 mg Syringe SC SCH (09:43)
[2017-12-25] MEDS: Vancomycin 1 gm/NS 200 ml 1 GM/200 ML BAG IVPB SCH (11:30)
[2017-12-25 12:00] LABS: BASO # 0.1 K/uL (0.0-0.2); BASO % 0.9 % (0.0-2.0); EOS # 0.4 K/uL (0.0-0.7); HEMOGLOBIN 12.2 g/dL (12.0-18.0); LYMPH # 1.5 K/uL (1.0-4.3); LYMPH % 18.5 % (20.0-40.0); MEAN CELL VOLUME 88.3 fL (80.0-94.0); MEAN CORPUSCULAR HEMOGLOBIN 31.4 pg (27.0-31.0); MEAN CORPUSCULAR HGB CONC 35.5 g/dL (33.0-37.0); MEAN PLATELET VOLUME 6.6 fL (7.2-11.7); MONO # 0.8 K/uL (0.0-0.8); MONO % 10.4 % (0.0-10.0); NEUT # 5.3 K/uL (1.8-7.0); NEUT % 65.2 % (50.0-75.0); RBC 3.88 Mil/uL (4.40-5.90); RED CELL DISTRIBUTION WIDTH 14.2 % (11.5-14.5); WHITE BLOOD COUNT 8.1 K/uL (4.8-10.8)
[2017-12-25 12:29] LABS: ALB/GLOB RATIO 1.1 (1.0-2.1); ALBUMIN 3.8 g/dL (3.5-5.0); ALT/SGPT 20 U/L (21-72); AST/SGOT 22 U/L (17-59); BLOOD UREA NITROGEN 9 mg/dL (9-20); CALCIUM 9.4 mg/dl (8.6-10.4); GFR AFRICAN-AMERICAN > 60; GFR NON-AFRICAN AMERICAN > 60
--- NOTE | 2017-12-25 12:49 | CP.PCM.PN ---
<Ministerio Kelley - Last Filed: 12/25/17 18:05> Subjective - Date & Time of Evaluation Date of Evaluation: 12/25/17 Time of Evaluation: 10:30 - Subjective Subjective: Progress Note for Dr. Deluna Patient seen and examined at bedside with patient's older sister present. Patient complains of left toe pain when motion, otherwise he does not complain of fever, chills, nausea, vomiting, or diarrhea. Patient is concern if amputation of the left toe will be necessary. Objective - Vital Signs/Intake and Output Vital Signs (last 24 hours): Temp Pulse Resp BP Pulse Ox 98.3 F 52 L 20 135/59 L 100 12/25/17 08:00 12/25/17 08:00 12/25/17 08:00 12/25/17 08:00 12/25/17 08:00 Intake and Output: 12/25/17 12/25/17 06:59 18:59 Intake Total 1000 Balance 1000 - Medications Medications: Current Medications Amlodipine Besylate (Norvasc) 10 mg PO DAILY [facility] Last Admin: 12/25/17 09:44 Dose: 10 mg Enoxaparin Sodium (Lovenox) 40 mg SC DAILY [facility] Last Admin: 12/25/17 09:43 Dose: 40 mg Glimepiride (Amaryl) 2 mg PO BID [facility] Last Admin: 12/25/17 09:44 Dose: 2 mg Piperacillin Sod/Tazobactam Sod (Zosyn 3.375 Gm Iv Premix) 3.375 gm in 50 mls @ 200 mls/hr IVPB Q8H DIA PRN Reason: Protocol Last Admin: 12/25/17 03:10 Dose: 200 mls/hr Vancomycin/Sodium Chloride (Vancomycin 1 Gm/Ns 200 Ml) 1 gm in 200 mls @ 133 mls/hr IVPB Q12H DIA PRN Reason: Protocol Stop: 12/27/17 23:31 Last Admin: 12/25/17 11:30 Dose: 133 mls/hr Insulin Aspart (Novolog) 0 unit SC ACHS DIA PRN Reason: Protocol Last Admin: 12/25/17 12:16 Dose: Not Given Metformin HCl (Glucophage) 500 mg PO BID [facility] Last Admin: 12/25/17 09:44 Dose: 500 mg Pioglitazone HCl (Actos) 15 mg PO BID [facility] Last Admin: 12/25/17 11:19 Dose: 15 mg - Labs Labs: 12/25/17 11:47 12/25/17 11:47 PT 11.9 SECONDS (9.7-12.2) 12/22/17 16:47 INR 1.1 12/22/17 16:47 APTT 36 SECONDS (21-34) H 12/22/17 16:47 - Additional Findings Additional findings: - Constitutional Appears: Non-toxic, No Acute Distress - Head Exam Head Exam: ATRAUMATIC, NORMOCEPHALIC - Eye Exam Eye Exam: EOMI - ENT Exam ENT Exam: Mucous Membranes Moist - Respiratory Exam Respiratory Exam: NORMAL BREATHING PATTERN - Cardiovascular Exam Cardiovascular Exam: +S1, +S2 - GI/Abdominal Exam GI & Abdominal Exam: Soft, Normal bowel sound - Extremities Exam Additional comments: Pedal pulses absent left hallux necrotic ulcer, feet warm bilaterally - Neurological Exam Neurological Exam: Alert, Awake - Psychiatric Exam Psychiatric exam: Normal Affect, Normal Mood - Skin Skin Exam: Dry, Intact Assessment and Plan - Assessment and Plan (Free Text) Assessment: Left necrotic toe ulcer -CT angio shows mild to moderate atherosclerotic disease. Diffuse atherosclerotic calcification, especially posterior tibial arteries -Venous doppler negative for DVT -Arterial PVR positive for B/L LE arterial calc and small vessel disease -Left toe x-ray shows cortical irregularity distal phalanx 1st digit. Soft tissue swelling. Suspicious for acute osteomyelitis -Vascular surgery consulted, no surgical intervention recommended -ESR 30, Afebrile, no leukocytosis -ID consulted, Dr. Blancas help appreciated -Zosyn 3.375gm Q8 (started 12/23) -Vancomycin 1gm Q12h (started 12/22) DM -Metormin 500mg BID -Glimepiride 2mg BID -Pioglitazone 500mg BID -ISS -Finger stick ACHS -Hypoglycemia protocol HTN -Amlodipine 10mg Prophylactic measures -Lovenox -Protonix -Florastor All management per Dr. Earnestine Deluna <Dariana Deluna - Last Filed: 12/31/17 09:36> Objective - Vital Signs/Intake and Output Vital Signs (last 24 hours): Temp Pulse Resp BP Pulse Ox 98.3 F 57 L 20 125/61 97 12/30/17 23:27 12/30/17 23:27 12/30/17 23:27 12/30/17 23:27 12/30/17 23:27 Intake and Output: 12/31/17 12/31/17 06:59 18:59 Intake Total 550 Balance 550 - Medications Medications: Current Medications Acetaminophen (Tylenol 325mg Tab) 650 mg PO Q6 PRN PRN Reason: Fever >100.4 F Amlodipine Besylate (Norvasc) 10 mg PO DAILY [facility] Last Admin: 12/30/17 10:28 Dose: 10 mg Collagenase (Santyl) 1 gm TOP DAILY [facility] Last Admin: 12/30/17 10:28 Dose: 1 applic Dextrose (Dextrose 50% Inj) 0 ml IVP .STAT PRN; Protocol PRN Reason: Hypoglycemia Protocol Dextrose (Glutose 15) 15 gm PO .ONCE PRN; Protocol PRN Reason: Hypoglycemia Protocol Glimepiride (Amaryl) 2 mg PO BID [facility] Last Admin: 12/30/17 17:42 Dose: 2 mg Glucagon (Glucagen Diagnostic Kit) 1 mg IM .STAT PRN; Protocol PRN Reason: Hypoglycemia Protocol Piperacillin Sod/Tazobactam (Sod 3.375 gm/ Sodium Chloride) 100 mls @ 100 mls/ hr IVPB Q8H DIA PRN Reason: Protocol Last Admin: 12/31/17 05:09 Dose: 100 mls/hr Vancomycin HCl 1,200 mg/ (Sodium Chloride) 250 mls @ 166.6 mls/hr IVPB Q12H DIA PRN Reason: Protocol Last Admin: 12/30/17 23:54 Dose: 166.6 mls/hr Insulin Aspart (Novolog) 0 unit SC ACHS DIA PRN Reason: Protocol Last Admin: 12/31/17 08:02 Dose: Not Given Metformin HCl (Glucophage) 500 mg PO BID [facility] Last Admin: 12/30/17 17:43 Dose: 500 mg Pantoprazole Sodium (Protonix Ec Tab) 40 mg PO DAILY [facility] Last Admin: 12/30/17 10:27 Dose: 40 mg Pioglitazone HCl (Actos) 15 mg PO BID [facility] Last Admin: 12/30/17 17:42 Dose: 15 mg Saccharomyces Boulardii (Florastor) 250 mg PO BID [facility] Last Admin: 12/30/17 17:46 Dose: 250 mg - Labs Labs: 12/30/17 07:12 12/30/17 07:12 PT 11.9 SECONDS (9.7-12.2) 12/22/17 16:47 INR 1.1 12/22/17 16:47 APTT 36 SECONDS (21-34) H 12/22/17 16:47 Assessment and Plan (1) Diabetes 1.5, managed as type 2 Status: Acute (2) Hypertension Status: Acute (3) Nonhealing ulcer of left lower extremity Status: Acute (4) Osteomyelitis Status: Acute Attending/Attestation - Attestation I have personally seen and examined this patient.: Yes I have fully participated in the care of the patient.: Yes I have reviewed all pertinent clinical information, including history, physical exam and plan: Yes Notes (Text): case seen and d.w staff and resident, concurred with finding and management..
[2017-12-25] MEDS ORDERED: Dextrose 50% SYRINGE Inj (50 ml) IVP PRN (13:33)
[2017-12-25] MEDS ORDERED: Glucagon Recombinant 1 mg Inj IM PRN (13:33)
--- NOTE | 2017-12-25 14:22 | CP.PCM.PN ---
Subjective - Date & Time of Evaluation Date of Evaluation: 12/25/17 Time of Evaluation: 07:40 - Subjective Subjective: clinically same Objective - Vital Signs/Intake and Output Vital Signs (last 24 hours): Temp Pulse Resp BP Pulse Ox 98.3 F 52 L 20 135/59 L 100 12/25/17 08:00 12/25/17 08:00 12/25/17 08:00 12/25/17 08:00 12/25/17 08:00 Intake and Output: 12/25/17 12/25/17 06:59 18:59 Intake Total 1000 Balance 1000 - Medications Medications: Current Medications Amlodipine Besylate (Norvasc) 10 mg PO DAILY [facility] Last Admin: 12/25/17 09:44 Dose: 10 mg Dextrose (Dextrose 50% Inj) 0 ml IVP .STAT PRN; Protocol PRN Reason: Hypoglycemia Protocol Dextrose (Glutose 15) 15 gm PO .ONCE PRN; Protocol PRN Reason: Hypoglycemia Protocol Enoxaparin Sodium (Lovenox) 40 mg SC DAILY [facility] Last Admin: 12/25/17 09:43 Dose: 40 mg Glimepiride (Amaryl) 2 mg PO BID [facility] Last Admin: 12/25/17 09:44 Dose: 2 mg Glucagon (Glucagen Diagnostic Kit) 1 mg IM .STAT PRN; Protocol PRN Reason: Hypoglycemia Protocol Piperacillin Sod/Tazobactam Sod (Zosyn 3.375 Gm Iv Premix) 3.375 gm in 50 mls @ 200 mls/hr IVPB Q8H [facility] PRN Reason: Protocol Last Admin: 12/25/17 12:29 Dose: 200 mls/hr Vancomycin/Sodium Chloride (Vancomycin 1 Gm/Ns 200 Ml) 1 gm in 200 mls @ 133 mls/hr IVPB Q12H [facility] PRN Reason: Protocol Stop: 12/27/17 23:31 Last Admin: 12/25/17 11:30 Dose: 133 mls/hr Dextrose (Dextrose 5% In Water 1000 Ml) 1,000 mls @ 0 mls/hr IV .Q0M PRN; Protocol; Per Protocol PRN Reason: Hypoglycemia Protocol Insulin Aspart (Novolog) 0 unit SC ACHS [facility] PRN Reason: Protocol Last Admin: 12/25/17 12:16 Dose: Not Given Metformin HCl (Glucophage) 500 mg PO BID [facility] Last Admin: 12/25/17 09:44 Dose: 500 mg Pantoprazole Sodium (Protonix Ec Tab) 40 mg PO DAILY [facility] Pioglitazone HCl (Actos) 15 mg PO BID [facility] Last Admin: 12/25/17 11:19 Dose: 15 mg Saccharomyces Boulardii (Florastor) 250 mg PO BID [facility] - Labs Labs: 12/25/17 11:47 12/25/17 11:47 PT 11.9 SECONDS (9.7-12.2) 12/22/17 16:47 INR 1.1 12/22/17 16:47 APTT 36 SECONDS (21-34) H 12/22/17 16:47 - Constitutional Appears: Well - Head Exam Head Exam: ATRAUMATIC, NORMAL INSPECTION, NORMOCEPHALIC - Eye Exam Eye Exam: EOMI, Normal appearance, PERRL Pupil Exam: NORMAL ACCOMODATION, PERRL - ENT Exam ENT Exam: Mucous Membranes Moist, Normal Exam - Neck Exam Neck Exam: Full ROM, Normal Inspection. absent: Lymphadenopathy - Respiratory Exam Respiratory Exam: Decreased Breath Sounds - Cardiovascular Exam Cardiovascular Exam: REGULAR RHYTHM, +S1, +S2 - GI/Abdominal Exam GI & Abdominal Exam: Soft, Diminished Bowel Sounds - Rectal Exam Rectal Exam: Deferred Assessment and Plan - Assessment and Plan (Free Text) Plan: Left necrotic toe ulcer -CT angio shows mild to moderate atherosclerotic disease. Diffuse atherosclerotic calcification, especially posterior tibial arteries -Venous doppler negative for DVT -Arterial PVR positive for B/L LE arterial calc and small vessel disease -Left toe x-ray shows cortical irregularity distal phalanx 1st digit. Soft tissue swelling. Suspicious for acute osteomyelitis -Vascular surgery consulted, no surgical intervention recommended -ESR 30, Afebrile, no leukocytosis -ID consulted, Dr. Blancas help appreciated -Zosyn 3.375gm Q8 (started 12/23) -Vancomycin 1gm Q12h (started 12/22) DM -Metormin 500mg BID -Glimepiride 2mg BID -Pioglitazone 500mg BID -ISS -Finger stick ACHS -Hypoglycemia protocol HTN -Amlodipine 10mg Prophylactic measures -Lovenox -Protonix -Florastor
[2017-12-25] MEDS: Saccharomyces Boulardi 250 mg Cap PO SCH (17:34)
--- NOTE | 2017-12-25 18:25 | CP.PCM.PN ---
Subjective - Date & Time of Evaluation Date of Evaluation: 12/25/17 Time of Evaluation: 04:00 - Subjective Subjective: dictated Objective - Vital Signs/Intake and Output Vital Signs (last 24 hours): Temp Pulse Resp BP Pulse Ox 98.2 F 57 L 20 130/69 99 12/25/17 16:07 12/25/17 16:07 12/25/17 16:07 12/25/17 16:07 12/25/17 16:07 Intake and Output: 12/25/17 12/25/17 06:59 18:59 Intake Total 1610 Balance 1610 - Medications Medications: Current Medications Amlodipine Besylate (Norvasc) 10 mg PO DAILY [facility] Last Admin: 12/25/17 09:44 Dose: 10 mg Collagenase (Santyl) 1 gm TOP DAILY [facility] Dextrose (Dextrose 50% Inj) 0 ml IVP .STAT PRN; Protocol PRN Reason: Hypoglycemia Protocol Dextrose (Glutose 15) 15 gm PO .ONCE PRN; Protocol PRN Reason: Hypoglycemia Protocol Enoxaparin Sodium (Lovenox) 40 mg SC DAILY [facility] Last Admin: 12/25/17 09:43 Dose: 40 mg Glimepiride (Amaryl) 2 mg PO BID [facility] Last Admin: 12/25/17 17:34 Dose: 2 mg Glucagon (Glucagen Diagnostic Kit) 1 mg IM .STAT PRN; Protocol PRN Reason: Hypoglycemia Protocol Piperacillin Sod/Tazobactam Sod (Zosyn 3.375 Gm Iv Premix) 3.375 gm in 50 mls @ 200 mls/hr IVPB Q8H [facility] PRN Reason: Protocol Last Admin: 12/25/17 12:29 Dose: 200 mls/hr Vancomycin/Sodium Chloride (Vancomycin 1 Gm/Ns 200 Ml) 1 gm in 200 mls @ 133 mls/hr IVPB Q12H [facility] PRN Reason: Protocol Stop: 12/27/17 23:31 Last Admin: 12/25/17 11:30 Dose: 133 mls/hr Dextrose (Dextrose 5% In Water 1000 Ml) 1,000 mls @ 0 mls/hr IV .Q0M PRN; Protocol; Per Protocol PRN Reason: Hypoglycemia Protocol Insulin Aspart (Novolog) 0 unit SC ACHS [facility] PRN Reason: Protocol Last Admin: 12/25/17 16:30 Dose: 2 unit Metformin HCl (Glucophage) 500 mg PO BID [facility] Last Admin: 12/25/17 17:35 Dose: 500 mg Pantoprazole Sodium (Protonix Ec Tab) 40 mg PO DAILY [facility] Pioglitazone HCl (Actos) 15 mg PO BID [facility] Last Admin: 12/25/17 17:33 Dose: 15 mg Saccharomyces Boulardii (Florastor) 250 mg PO BID [facility] Last Admin: 12/25/17 17:34 Dose: 250 mg - Labs Labs: 12/25/17 11:47 12/25/17 11:47 PT 11.9 SECONDS (9.7-12.2) 12/22/17 16:47 INR 1.1 12/22/17 16:47 APTT 36 SECONDS (21-34) H 12/22/17 16:47
[2017-12-25] MEDS: Collagenase 250 Units/gm Ointment(30 gm) TOP SCH (19:00)
--- NOTE | 2017-12-26 00:36 | PN ---
DATE: ___12/25/17__ SUBJECTIVE: The patient was seen today. He also complained of an abscess he has between his buttocks. He says it was very small, but now it is getting bigger in last 2 to 3 days. He is on antibiotics. I told him it will get better with that and would to keep an eye on it and patient has this left foot great toe necrotic ulcer with osteomyelitis, it seems anyway waiting for podiatry eval. Vascular is not going to do anything about and does not need to do any surgery as there is runoff. OBJECTIVE: VITAL SIGNS: T-max is 98.2, pulse 57, blood pressure is 130/69, respirations are 20. HEENT: Head is atraumatic, normocephalic. NECK: Supple. LUNGS: Clear. No crackles or rales present. HEART: S1 and S2 is regular. ABDOMEN: Soft, nontender. No guarding. No rigidity present. PELVIC: He has small abscess between the butt-cheeks, and which is developing abscess. EXTREMITIES: Left foot has this great toe with a necrotic ulceration. No drainage. No discharge. It is a closed wound and the toe certainly looks like osteomyelitis. Right foot is unremarkable. LABORATORY DATA: Labs are noted. Labs show white count is 8.1, hemoglobin 12.2, hematocrit 34.2, platelet count is 446, and chemistry shows BUN is 9, creatinine 0.8. ASSESSMENT AND PLAN: The patient is on vancomycin and Zosyn at this time and he is getting 1 g every 12 hours. We will try to see if we could get the vancomycin peak and get trough level and see if Podiatry has any plans. We will put him on Santyl for time being till the Podiatry evaluates, and at this time he may need a peripherally inserted central catheter line and intravenous antibiotics to go home with or to a rehab wherever his insurance allows. So we will discuss this plan with the primary tomorrow. I am waiting for the Podiatry evaluation at this time. We will follow. The patient has osteomyelitis of the left great toe, also has abscess between his buttocks and he is diabetic. Tiffany Blancas MD [facility] # [id number] [email or web address]
[2017-12-26] MEDS: Piperacill/Tazo 3.375gm in Dex 3.375 GM/50 ML BAG IVPB SCH (03:24)
[2017-12-26] MEDS: (Novolog) Insulin Aspart, Recombinant 100 u/ml 10 ml vial SC SCH ×4 (07:52→22:00)
[2017-12-26 07:55] LABS: BASO # 0.1 K/uL (0.0-0.2); BASO % 1.1 % (0.0-2.0); EOS # 0.4 K/uL (0.0-0.7); EOS % 5.6 % (0.0-4.0); HEMOGLOBIN 11.8 g/dL (12.0-18.0); LYMPH # 1.4 K/uL (1.0-4.3); LYMPH % 19.4 % (20.0-40.0); MEAN CELL VOLUME 89.1 fL (80.0-94.0); MEAN CORPUSCULAR HEMOGLOBIN 31.2 pg (27.0-31.0); MEAN PLATELET VOLUME 6.5 fL (7.2-11.7); MONO # 0.7 K/uL (0.0-0.8); MONO % 9.3 % (0.0-10.0); NEUT # 4.6 K/uL (1.8-7.0); NEUT % 64.6 % (50.0-75.0); RBC 3.79 Mil/uL (4.40-5.90); RED CELL DISTRIBUTION WIDTH 14.3 % (11.5-14.5); WHITE BLOOD COUNT 7.2 K/uL (4.8-10.8)
[2017-12-26 08:12] LABS: ALB/GLOB RATIO 1.1 (1.0-2.1); ALBUMIN 3.8 g/dL (3.5-5.0); ALT/SGPT 22 U/L (21-72); AST/SGOT 28 U/L (17-59); BLOOD UREA NITROGEN 6 mg/dL (9-20); CALCIUM 9.4 mg/dl (8.6-10.4); GFR AFRICAN-AMERICAN > 60; GFR NON-AFRICAN AMERICAN > 60
[2017-12-26] MEDS: Enoxaparin 40 mg Syringe SC SCH (09:32)
[2017-12-26] MEDS: Collagenase 250 Units/gm Ointment(30 gm) TOP SCH (09:32)
[2017-12-26] MEDS: Pantoprazole 40 mg EC Tab PO SCH (09:32)
[2017-12-26] MEDS: Saccharomyces Boulardi 250 mg Cap PO SCH ×2 (09:32→17:25)
--- NOTE | 2017-12-26 09:38 | CP.PCM.PN ---
<Stan Bates - Last Filed: 12/26/17 16:31> Subjective - Date & Time of Evaluation Date of Evaluation: 12/26/17 Time of Evaluation: 09:36 - Subjective Subjective: PGY02 note for Dr. Deluna's service: Patient seen and examined at bedside. Nursing reports no acute events overnight. Patient for MRI to further evaluate extent of left toe osteomyelitis. Patient today also c/o pain with sitting due to buttock abscess, which he states has gotten bigger over the last few days. He denies fever, chills, chest pain, abd pain, or N/V. Objective - Vital Signs/Intake and Output Vital Signs (last 24 hours): Temp Pulse Resp BP Pulse Ox 97.9 F 61 20 148/74 98 12/26/17 08:10 12/26/17 08:10 12/26/17 08:10 12/26/17 08:10 12/26/17 08:10 Intake and Output: 12/26/17 12/26/17 06:59 18:59 Intake Total 550 Balance 550 - Medications Medications: Current Medications Amlodipine Besylate (Norvasc) 10 mg PO DAILY [facility] Last Admin: 12/26/17 09:31 Dose: 10 mg Collagenase (Santyl) 1 gm TOP DAILY [facility] Last Admin: 12/26/17 09:32 Dose: 1 applic Dextrose (Dextrose 50% Inj) 0 ml IVP .STAT PRN; Protocol PRN Reason: Hypoglycemia Protocol Dextrose (Glutose 15) 15 gm PO .ONCE PRN; Protocol PRN Reason: Hypoglycemia Protocol Enoxaparin Sodium (Lovenox) 40 mg SC DAILY [facility] Last Admin: 12/26/17 09:32 Dose: 40 mg Glimepiride (Amaryl) 2 mg PO BID [facility] Last Admin: 12/26/17 09:31 Dose: 2 mg Glucagon (Glucagen Diagnostic Kit) 1 mg IM .STAT PRN; Protocol PRN Reason: Hypoglycemia Protocol Vancomycin/Sodium Chloride (Vancomycin 1 Gm/Ns 200 Ml) 1 gm in 200 mls @ 133 mls/hr IVPB Q12H [facility] PRN Reason: Protocol Stop: 12/27/17 23:31 Last Admin: 12/26/17 00:00 Dose: 133 mls/hr Dextrose (Dextrose 5% In Water 1000 Ml) 1,000 mls @ 0 mls/hr IV .Q0M PRN; Protocol; Per Protocol PRN Reason: Hypoglycemia Protocol Piperacillin Sod/Tazobactam (Sod 3.375 gm/ Sodium Chloride) 100 mls @ 100 mls/ hr IVPB Q8H [facility] PRN Reason: Protocol Insulin Aspart (Novolog) 0 unit SC ACHS [facility] PRN Reason: Protocol Last Admin: 12/26/17 07:52 Dose: Not Given Metformin HCl (Glucophage) 500 mg PO BID [facility] Last Admin: 12/26/17 09:32 Dose: 500 mg Pantoprazole Sodium (Protonix Ec Tab) 40 mg PO DAILY [facility] Last Admin: 12/26/17 09:32 Dose: 40 mg Pioglitazone HCl (Actos) 15 mg PO BID [facility] Last Admin: 12/26/17 09:31 Dose: 15 mg Saccharomyces Boulardii (Florastor) 250 mg PO BID [facility] Last Admin: 12/26/17 09:32 Dose: 250 mg - Labs Labs: 12/26/17 07:27 12/26/17 07:27 PT 11.9 SECONDS (9.7-12.2) 12/22/17 16:47 INR 1.1 12/22/17 16:47 APTT 36 SECONDS (21-34) H 12/22/17 16:47 - Additional Findings Additional findings: - Constitutional Appears: Non-toxic, No Acute Distress - Head Exam Head Exam: ATRAUMATIC, NORMOCEPHALIC - Eye Exam Eye Exam: EOMI - ENT Exam ENT Exam: Mucous Membranes Moist - Respiratory Exam Respiratory Exam: NORMAL BREATHING PATTERN - Cardiovascular Exam Cardiovascular Exam: +S1, +S2 - GI/Abdominal Exam GI & Abdominal Exam: Soft, Normal bowel sound - small abscess between upper buttocks, small amt fluctuance - Extremities Exam Additional comments: Pedal pulses absent left hallux necrotic ulcer, feet warm bilaterally - Neurological Exam Neurological Exam: Alert, Awake - Psychiatric Exam Psychiatric exam: Normal Affect, Normal Mood - Skin Skin Exam: Dry, Intact Assessment and Plan - Assessment and Plan (Free Text) Plan: Left necrotic toe ulcer/osteomyelitis -CT angio shows mild to moderate atherosclerotic disease. Diffuse atherosclerotic calcification, especially posterior tibial arteries -Venous doppler negative for DVT -Arterial PVR positive for B/L LE arterial calc and small vessel disease -Left toe x-ray shows cortical irregularity distal phalanx 1st digit. Soft tissue swelling. Suspicious for acute osteomyelitis -Vascular surgery consulted, no surgical intervention recommended -ESR 30, Afebrile, no leukocytosis -ID consulted, Dr. Blancas help appreciated -Zosyn 3.375gm Q8 (started 12/23) -Vancomycin 1gm Q12h (started 12/22) - start Santyl Blood culture (12/22/17): No growth x 3 days f/u MRI Buttocks abscess Antibiotics as above Wound Care - yola Haro, Gen Surgery - f/u reccs DM Well controlled, A1c: 7.0 -Metormin 500mg BID -Glimepiride 2mg BID -Pioglitazone 500mg BID -ISS -Finger stick ACHS -Hypoglycemia protocol HTN Well controlled -Amlodipine 10mg Prophylactic measures -Lovenox -Protonix -Florastor Disposition: Pt will require long-term ABX. Consent for PICC obtained. All management per Dr. Earnestine Deluna <Dariana Deluna S - Last Filed: 12/31/17 09:35> Objective - Vital Signs/Intake and Output Vital Signs (last 24 hours): Temp Pulse Resp BP Pulse Ox 98.3 F 57 L 20 125/61 97 12/30/17 23:27 12/30/17 23:27 12/30/17 23:27 12/30/17 23:27 12/30/17 23:27 Intake and Output: 12/31/17 12/31/17 06:59 18:59 Intake Total 550 Balance 550 - Medications Medications: Current Medications Acetaminophen (Tylenol 325mg Tab) 650 mg PO Q6 PRN PRN Reason: Fever >100.4 F Amlodipine Besylate (Norvasc) 10 mg PO DAILY [facility] Last Admin: 12/30/17 10:28 Dose: 10 mg Collagenase (Santyl) 1 gm TOP DAILY [facility] Last Admin: 12/30/17 10:28 Dose: 1 applic Dextrose (Dextrose 50% Inj) 0 ml IVP .STAT PRN; Protocol PRN Reason: Hypoglycemia Protocol Dextrose (Glutose 15) 15 gm PO .ONCE PRN; Protocol PRN Reason: Hypoglycemia Protocol Glimepiride (Amaryl) 2 mg PO BID [facility] Last Admin: 12/30/17 17:42 Dose: 2 mg Glucagon (Glucagen Diagnostic Kit) 1 mg IM .STAT PRN; Protocol PRN Reason: Hypoglycemia Protocol Piperacillin Sod/Tazobactam (Sod 3.375 gm/ Sodium Chloride) 100 mls @ 100 mls/ hr IVPB Q8H [facility] PRN Reason: Protocol Last Admin: 12/31/17 05:09 Dose: 100 mls/hr Vancomycin HCl 1,200 mg/ (Sodium Chloride) 250 mls @ 166.6 mls/hr IVPB Q12H [facility] PRN Reason: Protocol Last Admin: 12/30/17 23:54 Dose: 166.6 mls/hr Insulin Aspart (Novolog) 0 unit SC ACHS [facility] PRN Reason: Protocol Last Admin: 12/31/17 08:02 Dose: Not Given Metformin HCl (Glucophage) 500 mg PO BID [facility] Last Admin: 12/30/17 17:43 Dose: 500 mg Pantoprazole Sodium (Protonix Ec Tab) 40 mg PO DAILY [facility] Last Admin: 12/30/17 10:27 Dose: 40 mg Pioglitazone HCl (Actos) 15 mg PO BID [facility] Last Admin: 12/30/17 17:42 Dose: 15 mg Saccharomyces Boulardii (Florastor) 250 mg PO BID [facility] Last Admin: 12/30/17 17:46 Dose: 250 mg - Labs Labs: 12/30/17 07:12 12/30/17 07:12 PT 11.9 SECONDS (9.7-12.2) 12/22/17 16:47 INR 1.1 12/22/17 16:47 APTT 36 SECONDS (21-34) H 12/22/17 16:47 Assessment and Plan (1) Diabetes 1.5, managed as type 2 Status: Acute (2) Hypertension Status: Acute (3) Nonhealing ulcer of left lower extremity Status: Acute (4) Osteomyelitis Status: Acute Attending/Attestation - Attestation I have personally seen and examined this patient.: Yes I have fully participated in the care of the patient.: Yes I have reviewed all pertinent clinical information, including history, physical exam and plan: Yes Notes (Text): case seen and d.w staff and resident, concurred with finding and management..
[2017-12-26] MEDS ORDERED: Saccharomyces Boulardi 250 mg Cap PO SCH (10:00)
[2017-12-26] MEDS: Vancomycin 1 gm/NS 200 ml 1 GM/200 ML BAG IVPB SCH ×2 (11:01)
[2017-12-26] MEDS: Piperacillin/Tazobact 3.375 GM in Sodium Chloride 0.9% 100 ML IVPB SCH ×2 (12:40→21:00)
--- NOTE | 2017-12-26 17:07 | CP.PCM.PN ---
Subjective - Date & Time of Evaluation Date of Evaluation: 12/26/17 Time of Evaluation: 07:40 - Subjective Subjective: clinically same Objective - Vital Signs/Intake and Output Vital Signs (last 24 hours): Temp Pulse Resp BP Pulse Ox 98.4 F 61 20 119/68 100 12/26/17 15:30 12/26/17 15:30 12/26/17 15:30 12/26/17 15:30 12/26/17 15:30 Intake and Output: 12/26/17 12/26/17 06:59 18:59 Intake Total 550 550 Balance 550 550 - Medications Medications: Current Medications Amlodipine Besylate (Norvasc) 10 mg PO DAILY [facility] Last Admin: 12/26/17 09:31 Dose: 10 mg Collagenase (Santyl) 1 gm TOP DAILY [facility] Last Admin: 12/26/17 09:32 Dose: 1 applic Dextrose (Dextrose 50% Inj) 0 ml IVP .STAT PRN; Protocol PRN Reason: Hypoglycemia Protocol Dextrose (Glutose 15) 15 gm PO .ONCE PRN; Protocol PRN Reason: Hypoglycemia Protocol Enoxaparin Sodium (Lovenox) 40 mg SC DAILY [facility] Last Admin: 12/26/17 09:32 Dose: 40 mg Glimepiride (Amaryl) 2 mg PO BID [facility] Last Admin: 12/26/17 09:31 Dose: 2 mg Glucagon (Glucagen Diagnostic Kit) 1 mg IM .STAT PRN; Protocol PRN Reason: Hypoglycemia Protocol Vancomycin/Sodium Chloride (Vancomycin 1 Gm/Ns 200 Ml) 1 gm in 200 mls @ 133 mls/hr IVPB Q12H [facility] PRN Reason: Protocol Stop: 12/27/17 23:31 Last Admin: 12/26/17 11:01 Dose: 133 mls/hr Dextrose (Dextrose 5% In Water 1000 Ml) 1,000 mls @ 0 mls/hr IV .Q0M PRN; Protocol; Per Protocol PRN Reason: Hypoglycemia Protocol Piperacillin Sod/Tazobactam (Sod 3.375 gm/ Sodium Chloride) 100 mls @ 100 mls/ hr IVPB Q8H [facility] PRN Reason: Protocol Last Admin: 12/26/17 12:40 Dose: 100 mls/hr Insulin Aspart (Novolog) 0 unit SC ACHS [facility] PRN Reason: Protocol Last Admin: 12/26/17 12:03 Dose: 1 unit Metformin HCl (Glucophage) 500 mg PO BID [facility] Last Admin: 12/26/17 09:32 Dose: 500 mg Pantoprazole Sodium (Protonix Ec Tab) 40 mg PO DAILY [facility] Last Admin: 12/26/17 09:32 Dose: 40 mg Pioglitazone HCl (Actos) 15 mg PO BID [facility] Last Admin: 12/26/17 09:31 Dose: 15 mg Saccharomyces Boulardii (Florastor) 250 mg PO BID [facility] Last Admin: 12/26/17 09:32 Dose: 250 mg - Labs Labs: 12/26/17 07:27 12/26/17 07:27 PT 11.9 SECONDS (9.7-12.2) 12/22/17 16:47 INR 1.1 12/22/17 16:47 APTT 36 SECONDS (21-34) H 12/22/17 16:47 - Constitutional Appears: Well - Head Exam Head Exam: ATRAUMATIC, NORMAL INSPECTION, NORMOCEPHALIC - Eye Exam Eye Exam: EOMI, Normal appearance, PERRL Pupil Exam: NORMAL ACCOMODATION, PERRL - ENT Exam ENT Exam: Mucous Membranes Moist, Normal Exam - Neck Exam Neck Exam: Full ROM, Normal Inspection. absent: Lymphadenopathy - Respiratory Exam Respiratory Exam: Decreased Breath Sounds - Cardiovascular Exam Cardiovascular Exam: REGULAR RHYTHM, +S1, +S2 - GI/Abdominal Exam GI & Abdominal Exam: Soft, Diminished Bowel Sounds - Rectal Exam Rectal Exam: Deferred Assessment and Plan (1) Diabetes 1.5, managed as type 2 Status: Acute (2) Hypertension Status: Acute (3) Nonhealing ulcer of left lower extremity Status: Acute (4) Osteomyelitis Status: Acute - Assessment and Plan (Free Text) Plan: Left necrotic toe ulcer/osteomyelitis -CT angio shows mild to moderate atherosclerotic disease. Diffuse atherosclerotic calcification, especially posterior tibial arteries -Venous doppler negative for DVT -Arterial PVR positive for B/L LE arterial calc and small vessel disease -Left toe x-ray shows cortical irregularity distal phalanx 1st digit. Soft tissue swelling. Suspicious for acute osteomyelitis -Vascular surgery consulted, no surgical intervention recommended -ESR 30, Afebrile, no leukocytosis -ID consulted, Dr. Blancas help appreciated -Zosyn 3.375gm Q8 (started 12/23) -Vancomycin 1gm Q12h (started 12/22) - start Santyl Blood culture (12/22/17): No growth x 3 days f/u MRI Buttocks abscess Antibiotics as above Wound Care - yola Haro, Gen Surgery - f/u reccs DM Well controlled, A1c: 7.0 -Metormin 500mg BID -Glimepiride 2mg BID -Pioglitazone 500mg BID -ISS -Finger stick ACHS -Hypoglycemia protocol HTN Well controlled -Amlodipine 10mg Prophylactic measures -Lovenox -Protonix -Florastor Disposition: Pt will require long-term ABX. Consent for PICC obtained.
--- NOTE | 2017-12-26 21:00 | CP.PCM.PN ---
Subjective - Date & Time of Evaluation Date of Evaluation: 12/26/17 Time of Evaluation: 17:30 - Subjective Subjective: Surgery- Dr. Haro Patient seen and examined at bedside. No acute complaints. States some pain around the sacrum but has gotten better significantly. Denies pain with defecationl, blood in stool, bright red blood per rectum, purulent drainage. Objective - Vital Signs/Intake and Output Vital Signs (last 24 hours): Temp Pulse Resp BP Pulse Ox 98.4 F 61 20 119/68 100 12/26/17 15:30 12/26/17 15:30 12/26/17 15:30 12/26/17 15:30 12/26/17 15:30 Intake and Output: 12/26/17 12/27/17 18:59 06:59 Intake Total 550 Balance 550 - Medications Medications: Current Medications Amlodipine Besylate (Norvasc) 10 mg PO DAILY [facility] Last Admin: 12/26/17 09:31 Dose: 10 mg Collagenase (Santyl) 1 gm TOP DAILY [facility] Last Admin: 12/26/17 09:32 Dose: 1 applic Dextrose (Dextrose 50% Inj) 0 ml IVP .STAT PRN; Protocol PRN Reason: Hypoglycemia Protocol Dextrose (Glutose 15) 15 gm PO .ONCE PRN; Protocol PRN Reason: Hypoglycemia Protocol Enoxaparin Sodium (Lovenox) 40 mg SC DAILY [facility] Last Admin: 12/26/17 09:32 Dose: 40 mg Glimepiride (Amaryl) 2 mg PO BID [facility] Last Admin: 12/26/17 17:18 Dose: 2 mg Glucagon (Glucagen Diagnostic Kit) 1 mg IM .STAT PRN; Protocol PRN Reason: Hypoglycemia Protocol Vancomycin/Sodium Chloride (Vancomycin 1 Gm/Ns 200 Ml) 1 gm in 200 mls @ 133 mls/hr IVPB Q12H [facility] PRN Reason: Protocol Stop: 12/27/17 23:31 Last Admin: 12/26/17 11:01 Dose: 133 mls/hr Dextrose (Dextrose 5% In Water 1000 Ml) 1,000 mls @ 0 mls/hr IV .Q0M PRN; Protocol; Per Protocol PRN Reason: Hypoglycemia Protocol Piperacillin Sod/Tazobactam (Sod 3.375 gm/ Sodium Chloride) 100 mls @ 100 mls/ hr IVPB Q8H [facility] PRN Reason: Protocol Last Admin: 12/26/17 12:40 Dose: 100 mls/hr Insulin Aspart (Novolog) 0 unit SC ACHS [facility] PRN Reason: Protocol Last Admin: 12/26/17 16:30 Dose: 1 unit Metformin HCl (Glucophage) 500 mg PO BID [facility] Last Admin: 12/26/17 17:18 Dose: 500 mg Pantoprazole Sodium (Protonix Ec Tab) 40 mg PO DAILY [facility] Last Admin: 12/26/17 09:32 Dose: 40 mg Pioglitazone HCl (Actos) 15 mg PO BID [facility] Last Admin: 12/26/17 17:25 Dose: 15 mg Saccharomyces Boulardii (Florastor) 250 mg PO BID [facility] Last Admin: 12/26/17 17:25 Dose: 250 mg - Labs Labs: 12/26/17 07:27 12/26/17 07:27 PT 11.9 SECONDS (9.7-12.2) 12/22/17 16:47 INR 1.1 12/22/17 16:47 APTT 36 SECONDS (21-34) H 12/22/17 16:47 - Constitutional Appears: Non-toxic, No Acute Distress - Head Exam Head Exam: ATRAUMATIC - Eye Exam Eye Exam: EOMI - Respiratory Exam Respiratory Exam: NORMAL BREATHING PATTERN. absent: Accessory Muscle Use, Respiratory Distress - Cardiovascular Exam Cardiovascular Exam: +S1, +S2. absent: Bradycardia, Tachycardia - GI/Abdominal Exam GI & Abdominal Exam: Soft. absent: Distended, Firm, Guarding, Rigid, Tenderness - Extremities Exam Extremities Exam: absent: Calf Tenderness Additional comments: LLE wrapped. Dressing C/D/I - Back Exam Additional comments: non-flutuant area on sacrum. Abscess measuring < 2cm in size No involvement towards the anus - Neurological Exam Neurological Exam: Alert, Awake, Oriented x3 - Psychiatric Exam Psychiatric exam: Normal Affect - Skin Skin Exam: Intact, Warm Assessment and Plan - Assessment and Plan (Free Text) Assessment: 62M w/ LLE ulcer, small abscess on buttock Plan: - small abscess, would not benefit from drainage - recommend warm compresses - recommend hibiclens wash - no surgical intervention - d/w Dr. Haro surgical attending [facility] PGY1
--- NOTE | 2017-12-26 21:51 | CP.PCM.PN ---
Subjective - Date & Time of Evaluation Date of Evaluation: 12/26/17 Time of Evaluation: 02:30 - Subjective Subjective: dictated Objective - Vital Signs/Intake and Output Vital Signs (last 24 hours): Temp Pulse Resp BP Pulse Ox 98.4 F 61 20 119/68 100 12/26/17 15:30 12/26/17 15:30 12/26/17 15:30 12/26/17 15:30 12/26/17 15:30 Intake and Output: 12/26/17 12/27/17 18:59 06:59 Intake Total 550 Balance 550 - Medications Medications: Current Medications Amlodipine Besylate (Norvasc) 10 mg PO DAILY [facility] Last Admin: 12/26/17 09:31 Dose: 10 mg Collagenase (Santyl) 1 gm TOP DAILY [facility] Last Admin: 12/26/17 09:32 Dose: 1 applic Dextrose (Dextrose 50% Inj) 0 ml IVP .STAT PRN; Protocol PRN Reason: Hypoglycemia Protocol Dextrose (Glutose 15) 15 gm PO .ONCE PRN; Protocol PRN Reason: Hypoglycemia Protocol Enoxaparin Sodium (Lovenox) 40 mg SC DAILY [facility] Last Admin: 12/26/17 09:32 Dose: 40 mg Glimepiride (Amaryl) 2 mg PO BID [facility] Last Admin: 12/26/17 17:18 Dose: 2 mg Glucagon (Glucagen Diagnostic Kit) 1 mg IM .STAT PRN; Protocol PRN Reason: Hypoglycemia Protocol Vancomycin/Sodium Chloride (Vancomycin 1 Gm/Ns 200 Ml) 1 gm in 200 mls @ 133 mls/hr IVPB Q12H [facility] PRN Reason: Protocol Stop: 12/27/17 23:31 Last Admin: 12/26/17 11:01 Dose: 133 mls/hr Dextrose (Dextrose 5% In Water 1000 Ml) 1,000 mls @ 0 mls/hr IV .Q0M PRN; Protocol; Per Protocol PRN Reason: Hypoglycemia Protocol Piperacillin Sod/Tazobactam (Sod 3.375 gm/ Sodium Chloride) 100 mls @ 100 mls/ hr IVPB Q8H [facility] PRN Reason: Protocol Last Admin: 12/26/17 21:00 Dose: 100 mls/hr Insulin Aspart (Novolog) 0 unit SC ACHS [facility] PRN Reason: Protocol Last Admin: 12/26/17 16:30 Dose: 1 unit Metformin HCl (Glucophage) 500 mg PO BID [facility] Last Admin: 12/26/17 17:18 Dose: 500 mg Pantoprazole Sodium (Protonix Ec Tab) 40 mg PO DAILY [facility] Last Admin: 12/26/17 09:32 Dose: 40 mg Pioglitazone HCl (Actos) 15 mg PO BID [facility] Last Admin: 12/26/17 17:25 Dose: 15 mg Saccharomyces Boulardii (Florastor) 250 mg PO BID [facility] Last Admin: 12/26/17 17:25 Dose: 250 mg - Labs Labs: 12/26/17 07:27 12/26/17 07:27 PT 11.9 SECONDS (9.7-12.2) 12/22/17 16:47 INR 1.1 12/22/17 16:47 APTT 36 SECONDS (21-34) H 12/22/17 16:47
[2017-12-27] MEDS: Vancomycin 1 gm/NS 200 ml 1 GM/200 ML BAG IVPB SCH ×2 (00:20→11:52)
--- NOTE | 2017-12-27 02:33 | PN ---
DATE: __12/26/17___ SUBJECTIVE: The patient was afebrile. I explained to him in [place] that he would need to go to a rehab to get IV antibiotics and he is agreeing for it. I told him it may be for 6 weeks as he continues to have pain and ulceration. He got a dressing and Santyl on the wound and he says he feels a little better. Blood pressure is 119/68, respirations are 20. He was still complaining of that abscess in the sacral areas, so we got a surgical evaluation and the surgeon suggests only warm compresses and to continue with the IV antibiotics. No drainage needed at this time, so we will hold up on further. Does not need any further intervention at this time. He was going to get an MRI. Actually, the x-rays very suggestive was osteomyelitis, so we will get a PICC line inserted and will need IV antibiotics. I do not see the Podiatry note on the chart at this time, so we will wait to get the MRI report. PHYSICAL EXAMINATION: VITAL SIGNS: T-max is 98.4, pulse 61, blood pressure 119/68, respirations are 20. HEENT: Head is atraumatic, normocephalic. NECK: Supple. LUNGS: Clear. No crackles or rales present. HEART: S1 and S2 are regular. ABDOMEN: Soft, nontender. No guarding. No rigidity present. EXTREMITIES: Left foot has a dressing at this time. Right foot is unremarkable. LABORATORY DATA: Labs show white count is 7.2, hemoglobin is 11.8, hematocrit 33.8, platelet count is 446 and BUN is 6, creatinine 0.8. Urine is negative. ASSESSMENT AND PLAN: He is on vancomycin and Zosyn here, but I think I would send him on vancomycin, right now he is on 1 gm every 12 hours, would like to get a vancomycin peak and trough on the next dose. Actually, Dr. Logan was called in on 12/25/2017, so we will wait for her report. Tiffany Blancas MD [facility]
[2017-12-27] MEDS: Piperacillin/Tazobact 3.375 GM in Sodium Chloride 0.9% 100 ML IVPB SCH ×3 (05:16→20:50)
--- NOTE | 2017-12-27 06:21 | CP.PCM.PN ---
<Stan Bates - Last Filed: 12/27/17 13:50> Subjective - Date & Time of Evaluation Date of Evaluation: 12/27/17 Time of Evaluation: 06:19 - Subjective Subjective: PGY02 note for Dr. Deluna's service: Patient seen and examined at bedside. Nursing reports no acute events overnight. Patient admits some mild pain in sacral area when he sits but denies pain with defecation, blood in stool, bright red blood per rectum, purulent drainage. Further denies fever, chills, chest pain, palpitations, SOB, or N/v. Objective - Vital Signs/Intake and Output Vital Signs (last 24 hours): Temp Pulse Resp BP Pulse Ox 97.8 F 55 L 20 118/79 98 12/26/17 23:24 12/26/17 23:24 12/26/17 23:24 12/26/17 23:24 12/26/17 23:24 Intake and Output: 12/26/17 12/27/17 18:59 06:59 Intake Total 550 400 Balance 550 400 - Medications Medications: Current Medications Amlodipine Besylate (Norvasc) 10 mg PO DAILY [facility] Last Admin: 12/26/17 09:31 Dose: 10 mg Collagenase (Santyl) 1 gm TOP DAILY [facility] Last Admin: 12/26/17 09:32 Dose: 1 applic Dextrose (Dextrose 50% Inj) 0 ml IVP .STAT PRN; Protocol PRN Reason: Hypoglycemia Protocol Dextrose (Glutose 15) 15 gm PO .ONCE PRN; Protocol PRN Reason: Hypoglycemia Protocol Enoxaparin Sodium (Lovenox) 40 mg SC DAILY [facility] Last Admin: 12/26/17 09:32 Dose: 40 mg Glimepiride (Amaryl) 2 mg PO BID [facility] Last Admin: 12/26/17 17:18 Dose: 2 mg Glucagon (Glucagen Diagnostic Kit) 1 mg IM .STAT PRN; Protocol PRN Reason: Hypoglycemia Protocol Vancomycin/Sodium Chloride (Vancomycin 1 Gm/Ns 200 Ml) 1 gm in 200 mls @ 133 mls/hr IVPB Q12H [facility] PRN Reason: Protocol Stop: 12/27/17 23:31 Last Admin: 12/27/17 00:20 Dose: 133 mls/hr Dextrose (Dextrose 5% In Water 1000 Ml) 1,000 mls @ 0 mls/hr IV .Q0M PRN; Protocol; Per Protocol PRN Reason: Hypoglycemia Protocol Piperacillin Sod/Tazobactam (Sod 3.375 gm/ Sodium Chloride) 100 mls @ 100 mls/ hr IVPB Q8H [facility] PRN Reason: Protocol Last Admin: 12/27/17 05:16 Dose: 100 mls/hr Insulin Aspart (Novolog) 0 unit SC ACHS [facility] PRN Reason: Protocol Last Admin: 12/26/17 22:00 Dose: Not Given Metformin HCl (Glucophage) 500 mg PO BID [facility] Last Admin: 12/26/17 17:18 Dose: 500 mg Pantoprazole Sodium (Protonix Ec Tab) 40 mg PO DAILY [facility] Last Admin: 12/26/17 09:32 Dose: 40 mg Pioglitazone HCl (Actos) 15 mg PO BID [facility] Last Admin: 12/26/17 17:25 Dose: 15 mg Saccharomyces Boulardii (Florastor) 250 mg PO BID [facility] Last Admin: 12/26/17 17:25 Dose: 250 mg - Labs Labs: 12/26/17 07:27 12/26/17 07:27 PT 11.9 SECONDS (9.7-12.2) 12/22/17 16:47 INR 1.1 12/22/17 16:47 APTT 36 SECONDS (21-34) H 12/22/17 16:47 - Additional Findings Additional findings: - Constitutional Appears: Non-toxic, No Acute Distress - Head Exam Head Exam: ATRAUMATIC, NORMOCEPHALIC - Eye Exam Eye Exam: EOMI - ENT Exam ENT Exam: Mucous Membranes Moist - Respiratory Exam Respiratory Exam: NORMAL BREATHING PATTERN - Cardiovascular Exam Cardiovascular Exam: +S1, +S2 - GI/Abdominal Exam GI & Abdominal Exam: Soft, Normal bowel sound - small abscess between upper buttocks, small amt fluctuance - Extremities Exam Additional comments: Pedal pulses absent left hallux necrotic ulcer, feet warm bilaterally - Neurological Exam Neurological Exam: Alert, Awake - Psychiatric Exam Psychiatric exam: Normal Affect, Normal Mood - Skin Skin Exam: Dry, Intact Assessment and Plan - Assessment and Plan (Free Text) Plan: Left necrotic toe ulcer/osteomyelitis -CT angio shows mild to moderate atherosclerotic disease. Diffuse atherosclerotic calcification, especially posterior tibial arteries -Venous doppler negative for DVT - MRI Left Lower ext (12/27/17): Findings concerning for osteomyelitis of distal phalanx of first toe. -Arterial PVR positive for B/L LE arterial calc and small vessel disease -Left toe x-ray shows cortical irregularity distal phalanx 1st digit. Soft tissue swelling. Suspicious for acute osteomyelitis -Vascular surgery consulted, no surgical intervention recommended -ESR 30, Afebrile, no leukocytosis -ID consulted, Dr. Blancas help appreciated -Zosyn 3.375gm Q8 (started 12/23) -Vancomycin 1gm Q12h (started 12/22) - start [facility] Podiatry consult, Dr. Logan - help appreciated - f/u reccs Blood culture (12/22/17): No growth x 3 days Sacral abscess Antibiotics as above Wound Care - [facility]ola Haro, Gen Surgery - No I&D necessary - Hibclens wash DM Well controlled, A1c: 7.0 -Metformin 500mg BID -Glimepiride 2mg BID -Pioglitazone 500mg BID -ISS -Finger stick ACHS -Hypoglycemia protocol HTN Well controlled -Amlodipine 10mg Prophylactic measures -Lovenox -Protonix -Florastor Disposition: Pt will require long-term ABX. PICC placed. Will f/u with Dr Blancas about recommendations. All management per Dr. Earnestine Deluna <Dariana Deluna S - Last Filed: 12/31/17 09:33> Objective - Vital Signs/Intake and Output Vital Signs (last 24 hours): Temp Pulse Resp BP Pulse Ox 98.3 F 57 L 20 125/61 97 12/30/17 23:27 12/30/17 23:27 12/30/17 23:27 12/30/17 23:27 12/30/17 23:27 Intake and Output: 12/31/17 12/31/17 06:59 18:59 Intake Total 550 Balance 550 - Medications Medications: Current Medications Acetaminophen (Tylenol 325mg Tab) 650 mg PO Q6 PRN PRN Reason: Fever >100.4 F Amlodipine Besylate (Norvasc) 10 mg PO DAILY [facility] Last Admin: 12/30/17 10:28 Dose: 10 mg Collagenase (Santyl) 1 gm TOP DAILY [facility] Last Admin: 12/30/17 10:28 Dose: 1 applic Dextrose (Dextrose 50% Inj) 0 ml IVP .STAT PRN; Protocol PRN Reason: Hypoglycemia Protocol Dextrose (Glutose 15) 15 gm PO .ONCE PRN; Protocol PRN Reason: Hypoglycemia Protocol Glimepiride (Amaryl) 2 mg PO BID [facility] Last Admin: 12/30/17 17:42 Dose: 2 mg Glucagon (Glucagen Diagnostic Kit) 1 mg IM .STAT PRN; Protocol PRN Reason: Hypoglycemia Protocol Piperacillin Sod/Tazobactam (Sod 3.375 gm/ Sodium Chloride) 100 mls @ 100 mls/ hr IVPB Q8H [facility] PRN Reason: Protocol Last Admin: 12/31/17 05:09 Dose: 100 mls/hr Vancomycin HCl 1,200 mg/ (Sodium Chloride) 250 mls @ 166.6 mls/hr IVPB Q12H [facility] PRN Reason: Protocol Last Admin: 12/30/17 23:54 Dose: 166.6 mls/hr Insulin Aspart (Novolog) 0 unit SC ACHS [facility] PRN Reason: Protocol Last Admin: 12/31/17 08:02 Dose: Not Given Metformin HCl (Glucophage) 500 mg PO BID [facility] Last Admin: 12/30/17 17:43 Dose: 500 mg Pantoprazole Sodium (Protonix Ec Tab) 40 mg PO DAILY [facility] Last Admin: 12/30/17 10:27 Dose: 40 mg Pioglitazone HCl (Actos) 15 mg PO BID [facility] Last Admin: 12/30/17 17:42 Dose: 15 mg Saccharomyces Boulardii (Florastor) 250 mg PO BID [facility] Last Admin: 12/30/17 17:46 Dose: 250 mg - Labs Labs: 12/30/17 07:12 12/30/17 07:12 PT 11.9 SECONDS (9.7-12.2) 12/22/17 16:47 INR 1.1 12/22/17 16:47 APTT 36 SECONDS (21-34) H 12/22/17 16:47 Assessment and Plan (1) Diabetes 1.5, managed as type 2 Status: Acute (2) Hypertension Status: Acute (3) Nonhealing ulcer of left lower extremity Status: Acute (4) Osteomyelitis Status: Acute Attending/Attestation - Attestation I have personally seen and examined this patient.: Yes I have fully participated in the care of the patient.: Yes I have reviewed all pertinent clinical information, including history, physical exam and plan: Yes Notes (Text): case seen and d.w staff and resident, concurred with finding and management..
[2017-12-27 07:58] LABS: BASO # 0.1 K/uL (0.0-0.2); EOS # 0.4 K/uL (0.0-0.7); EOS % 6.2 % (0.0-4.0); HEMOGLOBIN 12.5 g/dL (12.0-18.0); LYMPH # 1.2 K/uL (1.0-4.3); LYMPH % 17.5 % (20.0-40.0); MEAN CELL VOLUME 88.2 fL (80.0-94.0); MEAN CORPUSCULAR HEMOGLOBIN 30.8 pg (27.0-31.0); MEAN CORPUSCULAR HGB CONC 34.9 g/dL (33.0-37.0); MEAN PLATELET VOLUME 6.5 fL (7.2-11.7); MONO # 0.6 K/uL (0.0-0.8); MONO % 9.2 % (0.0-10.0); NEUT # 4.5 K/uL (1.8-7.0); NEUT % 66.1 % (50.0-75.0); RBC 4.06 Mil/uL (4.40-5.90); RED CELL DISTRIBUTION WIDTH 14.3 % (11.5-14.5); WHITE BLOOD COUNT 6.8 K/uL (4.8-10.8)
[2017-12-27] MEDS: (Novolog) Insulin Aspart, Recombinant 100 u/ml 10 ml vial SC SCH ×4 (08:04→21:43)
[2017-12-27 08:12] LABS: ALB/GLOB RATIO 1.1 (1.0-2.1); ALBUMIN 3.8 g/dL (3.5-5.0); ALT/SGPT 20 U/L (21-72); AST/SGOT 21 U/L (17-59); BLOOD UREA NITROGEN 7 mg/dL (9-20); CALCIUM 9.5 mg/dl (8.6-10.4); GFR AFRICAN-AMERICAN > 60; GFR NON-AFRICAN AMERICAN > 60
[2017-12-27] MEDS: Saccharomyces Boulardi 250 mg Cap PO SCH ×2 (09:47→17:41)
[2017-12-27] MEDS: Pantoprazole 40 mg EC Tab PO SCH (09:47)
[2017-12-27] MEDS: Enoxaparin 40 mg Syringe SC SCH (09:48)
[2017-12-27] MEDS: Collagenase 250 Units/gm Ointment(30 gm) TOP SCH (09:51)
--- NOTE | 2017-12-27 13:45 | MRI ---
MRI left forefoot History: Necrotic left toe Comparison: None available. Technique: Multi-echo multiplanar sequences were performed through the left forefoot without the use of intravenous contrast. Findings: Prominent signal abnormality seen at the level of the 1st distal phalanx with decreased T1 signal and increased STIR signal consistent with an acute osteomyelitis. Minimal nonspecific reactive edema at the head of the 1st proximal phalanx. Moderate hallux valgus deformity. Remainder of the visualized osseous structures appear grossly preserved. Prominent subcutaneous edema, ulceration, soft tissue swelling at the level of the 1st distal phalanx. Impression: Findings concerning for acute osteomyelitis of the distal phalanx of the 1st digit.
--- NOTE | 2017-12-27 14:11 | RAD ---
HISTORY: verify right PICC COMPARISON: No prior. FINDINGS: LUNGS: No active pulmonary disease. PLEURA: No significant pleural effusion identified, no pneumothorax apparent. CARDIOVASCULAR: Normal heart size. New right PICC catheter. Termination of PICC catheter in the region of superior vena cava. OSSEOUS STRUCTURES: No significant abnormalities. VISUALIZED UPPER ABDOMEN: Normal. OTHER FINDINGS: None. IMPRESSION: Right PICC catheter terminates in the region of the superior vena cava.
--- NOTE | 2017-12-27 14:23 | CP.PCM.PN ---
Subjective - Date & Time of Evaluation Date of Evaluation: 12/27/17 Time of Evaluation: 01:50 - Subjective Subjective: dictated Objective - Vital Signs/Intake and Output Vital Signs (last 24 hours): Temp Pulse Resp BP Pulse Ox 97.8 F 55 L 20 118/79 98 12/26/17 23:24 12/26/17 23:24 12/26/17 23:24 12/26/17 23:24 12/26/17 23:24 Intake and Output: 12/27/17 12/27/17 06:59 18:59 Intake Total 900 Balance 900 - Medications Medications: Current Medications Amlodipine Besylate (Norvasc) 10 mg PO DAILY [facility] Last Admin: 12/27/17 09:47 Dose: 10 mg Collagenase (Santyl) 1 gm TOP DAILY [facility] Last Admin: 12/27/17 09:51 Dose: 1 applic Dextrose (Dextrose 50% Inj) 0 ml IVP .STAT PRN; Protocol PRN Reason: Hypoglycemia Protocol Dextrose (Glutose 15) 15 gm PO .ONCE PRN; Protocol PRN Reason: Hypoglycemia Protocol Enoxaparin Sodium (Lovenox) 40 mg SC DAILY [facility] Last Admin: 12/27/17 09:48 Dose: 40 mg Glimepiride (Amaryl) 2 mg PO BID [facility] Last Admin: 12/27/17 09:47 Dose: 2 mg Glucagon (Glucagen Diagnostic Kit) 1 mg IM .STAT PRN; Protocol PRN Reason: Hypoglycemia Protocol Vancomycin/Sodium Chloride (Vancomycin 1 Gm/Ns 200 Ml) 1 gm in 200 mls @ 133 mls/hr IVPB Q12H [facility] PRN Reason: Protocol Stop: 12/27/17 23:31 Last Admin: 12/27/17 11:52 Dose: 133 mls/hr Dextrose (Dextrose 5% In Water 1000 Ml) 1,000 mls @ 0 mls/hr IV .Q0M PRN; Protocol; Per Protocol PRN Reason: Hypoglycemia Protocol Piperacillin Sod/Tazobactam (Sod 3.375 gm/ Sodium Chloride) 100 mls @ 100 mls/ hr IVPB Q8H [facility] PRN Reason: Protocol Last Admin: 12/27/17 13:35 Dose: 100 mls/hr Insulin Aspart (Novolog) 0 unit SC ACHS [facility] PRN Reason: Protocol Last Admin: 12/27/17 11:51 Dose: 2 unit Metformin HCl (Glucophage) 500 mg PO BID [facility] Last Admin: 12/27/17 09:47 Dose: 500 mg Pantoprazole Sodium (Protonix Ec Tab) 40 mg PO DAILY [facility] Last Admin: 12/27/17 09:47 Dose: 40 mg Pioglitazone HCl (Actos) 15 mg PO BID [facility] Last Admin: 12/27/17 09:47 Dose: 15 mg Saccharomyces Boulardii (Florastor) 250 mg PO BID [facility] Last Admin: 12/27/17 09:47 Dose: 250 mg - Labs Labs: 12/27/17 07:49 12/27/17 07:49 PT 11.9 SECONDS (9.7-12.2) 12/22/17 16:47 INR 1.1 12/22/17 16:47 APTT 36 SECONDS (21-34) H 12/22/17 16:47
--- NOTE | 2017-12-27 15:06 | CP.PCM.CON ---
History of Present Illness - History of Present Illness History of Present Illness: Podiary note for Dr. Logan 62 yo male patient with PMHx of DM, HTN, HLD was seen at bedside this afternoon after request for podiatry consultation. Patient presents with Left foot gangrenous hallux. Patient states that Dr. Pollard have been treating him for the left foot wound with local wound care. He states the left foot wound started as a small puncture wound and increased in size for the period. Patient complains of pain to left hallux upon palpation. He denies experiencing any N/V/F/C or sOB today. Patient was advised that podiatry treatment will possibly involve surgical intervention at this point. Past Patient History - Past Social History Smoking Status: Never Smoked - CARDIAC Hx Hypercholesterolemia: Yes Hx Hypertension: Yes - ENDOCRINE/METABOLIC Hx Endocrine Disorders: Yes Hx Diabetes Mellitus Type 2: Yes - MUSCULOSKELETAL/RHEUMATOLOGICAL Hx Falls: No - PSYCHIATRIC Hx Substance Use: No - SURGICAL HISTORY Hx Surgeries: Yes Hx Eye Surgery: Yes - ANESTHESIA Hx Anesthesia: Yes Meds Allergies/Adverse Reactions: Allergies Allergy/AdvReac Type Severity Reaction Status Date / Time No Known Allergies Allergy Verified 12/22/17 15:47 - Medications Medications: Current Medications Amlodipine Besylate (Norvasc) 10 mg PO DAILY [facility] Last Admin: 12/27/17 09:47 Dose: 10 mg Collagenase (Santyl) 1 gm TOP DAILY [facility] Last Admin: 12/27/17 09:51 Dose: 1 applic Dextrose (Dextrose 50% Inj) 0 ml IVP .STAT PRN; Protocol PRN Reason: Hypoglycemia Protocol Dextrose (Glutose 15) 15 gm PO .ONCE PRN; Protocol PRN Reason: Hypoglycemia Protocol Enoxaparin Sodium (Lovenox) 40 mg SC DAILY [facility] Last Admin: 12/27/17 09:48 Dose: 40 mg Glimepiride (Amaryl) 2 mg PO BID [facility] Last Admin: 12/27/17 09:47 Dose: 2 mg Glucagon (Glucagen Diagnostic Kit) 1 mg IM .STAT PRN; Protocol PRN Reason: Hypoglycemia Protocol Vancomycin/Sodium Chloride (Vancomycin 1 Gm/Ns 200 Ml) 1 gm in 200 mls @ 133 mls/hr IVPB Q12H [facility] PRN Reason: Protocol Stop: 12/27/17 23:31 Last Admin: 12/27/17 11:52 Dose: 133 mls/hr Dextrose (Dextrose 5% In Water 1000 Ml) 1,000 mls @ 0 mls/hr IV .Q0M PRN; Protocol; Per Protocol PRN Reason: Hypoglycemia Protocol Piperacillin Sod/Tazobactam (Sod 3.375 gm/ Sodium Chloride) 100 mls @ 100 mls/ hr IVPB Q8H [facility] PRN Reason: Protocol Last Admin: 12/27/17 13:35 Dose: 100 mls/hr Insulin Aspart (Novolog) 0 unit SC ACHS [facility] PRN Reason: Protocol Last Admin: 12/27/17 11:51 Dose: 2 unit Metformin HCl (Glucophage) 500 mg PO BID [facility] Last Admin: 12/27/17 09:47 Dose: 500 mg Pantoprazole Sodium (Protonix Ec Tab) 40 mg PO DAILY [facility] Last Admin: 12/27/17 09:47 Dose: 40 mg Pioglitazone HCl (Actos) 15 mg PO BID [facility] Last Admin: 12/27/17 09:47 Dose: 15 mg Saccharomyces Boulardii (Florastor) 250 mg PO BID [facility] Last Admin: 12/27/17 09:47 Dose: 250 mg Physical Exam - Constitutional Appears: Well, Non-toxic, No Acute Distress - Head Exam Head Exam: ATRAUMATIC - Extremities Exam Additional comments: Left lower extremity exam DERM: Unstageable necrotic eschar noted to distal aspect of Left hallux. Dry eschar measures 3cm x 2cm. No purulent drainage is noted. Mild odor is noted. Mild erythema noted around the eschar. VASC: Nonpalpable DP, PT noted to Left foot. Palpable DP and PT noted to Right foot NEURO: Gross sensation intact - Neurological Exam Neurological exam: Oriented x3 - Psychiatric Exam Psychiatric exam: Normal Affect, Normal Mood - Skin Skin Exam: Normal Color, Warm Results - Vital Signs Recent Vital Signs: Last Vital Signs Temp 97.8 F 12/26/17 23:24 Pulse 55 L 12/26/17 23:24 Resp 20 12/26/17 23:24 BP 118/79 12/26/17 23:24 Pulse Ox 98 12/26/17 23:24 - Labs Result Diagrams: 12/27/17 07:49 12/27/17 07:49 Labs: Laboratory Results - last 24 hr 12/26/17 12/26/17 12/27/17 16:04 21:07 06:53 WBC RBC Hgb Hct MCV MCH MCHC RDW Plt Count MPV Neut % (Auto) Lymph % (Auto) [place] % (Auto) Eos % (Auto) Baso % (Auto) Neut # (Auto) Lymph # (Auto) [place] # (Auto) Eos # (Auto) Baso # (Auto) Sodium Potassium Chloride Carbon Dioxide Anion Gap BUN Creatinine Est GFR ( Amer) Est GFR (Non-Af Amer) POC Glucose (mg/dL) 166 H 157 H 186 H Random Glucose Calcium Total Bilirubin AST ALT Alkaline Phosphatase Total Protein Albumin Globulin Albumin/Globulin Ratio Vancomycin Trough 12/27/17 12/27/17 12/27/17 07:49 07:49 07:49 WBC 6.8 RBC 4.06 L Hgb 12.5 Hct 35.8 MCV 88.2 MCH 30.8 MCHC 34.9 RDW 14.3 Plt Count 472 H MPV 6.5 L Neut % (Auto) 66.1 Lymph % (Auto) 17.5 L [place] % (Auto) 9.2 Eos % (Auto) 6.2 H Baso % (Auto) 1.0 Neut # (Auto) 4.5 Lymph # (Auto) 1.2 [place] # (Auto) 0.6 Eos # (Auto) 0.4 Baso # (Auto) 0.1 Sodium 142 Potassium 4.3 Chloride 105 Carbon Dioxide 28 Anion Gap 13 BUN 7 L Creatinine 0.9 Est GFR ( Amer) > 60 Est GFR (Non-Af Amer) > 60 POC Glucose (mg/dL) Random Glucose 158 H Calcium 9.5 Total Bilirubin 0.5 AST 21 ALT 20 L Alkaline Phosphatase 46 Total Protein 7.3 Albumin 3.8 Globulin 3.5 Albumin/Globulin Ratio 1.1 Vancomycin Trough 17.6 H 12/27/17 11:16 WBC RBC Hgb Hct MCV MCH MCHC RDW Plt Count MPV Neut % (Auto) Lymph % (Auto) [place] % (Auto) Eos % (Auto) Baso % (Auto) Neut # (Auto) Lymph # (Auto) [place] # (Auto) Eos # (Auto) Baso # (Auto) Sodium Potassium Chloride Carbon Dioxide Anion Gap BUN Creatinine Est GFR ( Amer) Est GFR (Non-Af Amer) POC Glucose (mg/dL) 239 H Random Glucose Calcium Total Bilirubin AST ALT Alkaline Phosphatase Total Protein Albumin Globulin Albumin/Globulin Ratio Vancomycin Trough Assessment & Plan - Assessment and Plan (Free Text) Assessment: 62 yo male patient presenting with Left gangrenous hallux Plan: Patient was seen, evaluated at bedside Labs and vitals reviewed; WBC 6.8, ESR 30 MRI reveals evidence of OM to distal phalanx of Left hallux Podiatry plan for possible Left hallux partial amputation; Dr. Logan will discuss with Dr. Haro Left foot dressed with Betadine Soaked DSD Podiatry will continue to follow in-house
--- NOTE | 2017-12-27 16:03 | CP.PCM.PN ---
Subjective - Date & Time of Evaluation Date of Evaluation: 12/27/17 Time of Evaluation: 08:00 - Subjective Subjective: clinically same Objective - Vital Signs/Intake and Output Vital Signs (last 24 hours): Temp Pulse Resp BP Pulse Ox 98.1 F 63 20 129/64 99 12/27/17 15:58 12/27/17 15:58 12/27/17 15:58 12/27/17 15:58 12/27/17 15:58 Intake and Output: 12/27/17 12/27/17 06:59 18:59 Intake Total 900 780 Balance 900 780 - Medications Medications: Current Medications Amlodipine Besylate (Norvasc) 10 mg PO DAILY [facility] Last Admin: 12/27/17 09:47 Dose: 10 mg Collagenase (Santyl) 1 gm TOP DAILY [facility] Last Admin: 12/27/17 09:51 Dose: 1 applic Dextrose (Dextrose 50% Inj) 0 ml IVP .STAT PRN; Protocol PRN Reason: Hypoglycemia Protocol Dextrose (Glutose 15) 15 gm PO .ONCE PRN; Protocol PRN Reason: Hypoglycemia Protocol Enoxaparin Sodium (Lovenox) 40 mg SC DAILY [facility] Last Admin: 12/27/17 09:48 Dose: 40 mg Glimepiride (Amaryl) 2 mg PO BID [facility] Last Admin: 12/27/17 09:47 Dose: 2 mg Glucagon (Glucagen Diagnostic Kit) 1 mg IM .STAT PRN; Protocol PRN Reason: Hypoglycemia Protocol Vancomycin/Sodium Chloride (Vancomycin 1 Gm/Ns 200 Ml) 1 gm in 200 mls @ 133 mls/hr IVPB Q12H [facility] PRN Reason: Protocol Stop: 12/27/17 23:31 Last Admin: 12/27/17 11:52 Dose: 133 mls/hr Dextrose (Dextrose 5% In Water 1000 Ml) 1,000 mls @ 0 mls/hr IV .Q0M PRN; Protocol; Per Protocol PRN Reason: Hypoglycemia Protocol Piperacillin Sod/Tazobactam (Sod 3.375 gm/ Sodium Chloride) 100 mls @ 100 mls/ hr IVPB Q8H [facility] PRN Reason: Protocol Last Admin: 12/27/17 13:35 Dose: 100 mls/hr Insulin Aspart (Novolog) 0 unit SC ACHS [facility] PRN Reason: Protocol Last Admin: 12/27/17 11:51 Dose: 2 unit Metformin HCl (Glucophage) 500 mg PO BID [facility] Last Admin: 12/27/17 09:47 Dose: 500 mg Pantoprazole Sodium (Protonix Ec Tab) 40 mg PO DAILY [facility] Last Admin: 12/27/17 09:47 Dose: 40 mg Pioglitazone HCl (Actos) 15 mg PO BID [facility] Last Admin: 12/27/17 09:47 Dose: 15 mg Saccharomyces Boulardii (Florastor) 250 mg PO BID [facility] Last Admin: 12/27/17 09:47 Dose: 250 mg - Labs Labs: 12/27/17 07:49 12/27/17 07:49 PT 11.9 SECONDS (9.7-12.2) 12/22/17 16:47 INR 1.1 12/22/17 16:47 APTT 36 SECONDS (21-34) H 12/22/17 16:47 - Constitutional Appears: Well - Head Exam Head Exam: ATRAUMATIC, NORMAL INSPECTION, NORMOCEPHALIC - Eye Exam Eye Exam: EOMI, Normal appearance, PERRL Pupil Exam: NORMAL ACCOMODATION, PERRL - ENT Exam ENT Exam: Mucous Membranes Moist, Normal Exam - Neck Exam Neck Exam: Full ROM, Normal Inspection. absent: Lymphadenopathy - Respiratory Exam Respiratory Exam: Decreased Breath Sounds - Cardiovascular Exam Cardiovascular Exam: REGULAR RHYTHM, +S1, +S2 - GI/Abdominal Exam GI & Abdominal Exam: Soft, Diminished Bowel Sounds - Rectal Exam Rectal Exam: Deferred Assessment and Plan (1) Diabetes 1.5, managed as type 2 Status: Acute (2) Hypertension Status: Acute (3) Nonhealing ulcer of left lower extremity Status: Acute (4) Osteomyelitis Status: Acute - Assessment and Plan (Free Text) Plan: Left necrotic toe ulcer/osteomyelitis -CT angio shows mild to moderate atherosclerotic disease. Diffuse atherosclerotic calcification, especially posterior tibial arteries -Venous doppler negative for DVT - MRI Left Lower ext (12/27/17): Findings concerning for osteomyelitis of distal phalanx of first toe. -Arterial PVR positive for B/L LE arterial calc and small vessel disease -Left toe x-ray shows cortical irregularity distal phalanx 1st digit. Soft tissue swelling. Suspicious for acute osteomyelitis -Vascular surgery consulted, no surgical intervention recommended -ESR 30, Afebrile, no leukocytosis -ID consulted, Dr. Blancas help appreciated -Zosyn 3.375gm Q8 (started 12/23) -Vancomycin 1gm Q12h (started 12/22) - start [facility] Podiatry consult, Dr. Logan - help appreciated - f/u reccs Blood culture (12/22/17): No growth x 3 days Sacral abscess Antibiotics as above Wound Care - yola Haro, Gen Surgery - No I&D necessary - Hibclens wash DM Well controlled, A1c: 7.0 -Metformin 500mg BID -Glimepiride 2mg BID -Pioglitazone 500mg BID -ISS -Finger stick ACHS -Hypoglycemia protocol HTN Well controlled -Amlodipine 10mg Prophylactic measures -Lovenox -Protonix -Florastor Disposition: Pt will require long-term ABX. PICC placed. Will f/u with Dr Blancas about recommendations.
--- NOTE | 2017-12-27 21:37 | CP.PCM.PN ---
Subjective - Date & Time of Evaluation Date of Evaluation: 12/27/17 Time of Evaluation: 03:00 - Subjective Subjective: dictated Objective - Vital Signs/Intake and Output Vital Signs (last 24 hours): Temp Pulse Resp BP Pulse Ox 98.1 F 63 20 129/64 99 12/27/17 15:58 12/27/17 15:58 12/27/17 15:58 12/27/17 15:58 12/27/17 15:58 Intake and Output: 12/27/17 12/28/17 18:59 06:59 Intake Total 780 Balance 780 - Medications Medications: Current Medications Amlodipine Besylate (Norvasc) 10 mg PO DAILY [facility] Last Admin: 12/27/17 09:47 Dose: 10 mg Collagenase (Santyl) 1 gm TOP DAILY [facility] Last Admin: 12/27/17 09:51 Dose: 1 applic Dextrose (Dextrose 50% Inj) 0 ml IVP .STAT PRN; Protocol PRN Reason: Hypoglycemia Protocol Dextrose (Glutose 15) 15 gm PO .ONCE PRN; Protocol PRN Reason: Hypoglycemia Protocol Enoxaparin Sodium (Lovenox) 40 mg SC DAILY [facility] Last Admin: 12/27/17 09:48 Dose: 40 mg Glimepiride (Amaryl) 2 mg PO BID [facility] Last Admin: 12/27/17 17:38 Dose: 2 mg Glucagon (Glucagen Diagnostic Kit) 1 mg IM .STAT PRN; Protocol PRN Reason: Hypoglycemia Protocol Vancomycin/Sodium Chloride (Vancomycin 1 Gm/Ns 200 Ml) 1 gm in 200 mls @ 133 mls/hr IVPB Q12H [facility] PRN Reason: Protocol Stop: 12/27/17 23:31 Last Admin: 12/27/17 11:52 Dose: 133 mls/hr Dextrose (Dextrose 5% In Water 1000 Ml) 1,000 mls @ 0 mls/hr IV .Q0M PRN; Protocol; Per Protocol PRN Reason: Hypoglycemia Protocol Piperacillin Sod/Tazobactam (Sod 3.375 gm/ Sodium Chloride) 100 mls @ 100 mls/ hr IVPB Q8H [facility] PRN Reason: Protocol Last Admin: 12/27/17 13:35 Dose: 100 mls/hr Insulin Aspart (Novolog) 0 unit SC ACHS [facility] PRN Reason: Protocol Last Admin: 12/27/17 16:30 Dose: 2 unit Metformin HCl (Glucophage) 500 mg PO BID [facility] Last Admin: 12/27/17 17:38 Dose: 500 mg Pantoprazole Sodium (Protonix Ec Tab) 40 mg PO DAILY [facility] Last Admin: 12/27/17 09:47 Dose: 40 mg Pioglitazone HCl (Actos) 15 mg PO BID [facility] Last Admin: 12/27/17 17:52 Dose: 15 mg Saccharomyces Boulardii (Florastor) 250 mg PO BID [facility] Last Admin: 12/27/17 17:41 Dose: 250 mg - Labs Labs: 12/27/17 07:49 12/27/17 07:49 PT 11.9 SECONDS (9.7-12.2) 12/22/17 16:47 INR 1.1 12/22/17 16:47 APTT 36 SECONDS (21-34) H 12/22/17 16:47
--- NOTE | 2017-12-28 03:02 | PN ---
DATE: 12/27/2017 SUBJECTIVE: The patient was seen today. He got the PICC line. He was still with the dressing on the foot. He was waiting to be seen by Dr. Logan as we were planning as he does have a necrotic gangrenous ulcer on the left great toe. The patient also has a small abscess on the buttock which was seen by the surgeon. He says he was told that it will get better on its own. We were both waiting to see what the vacuum metalizing supervisor has to say. PHYSICAL EXAMINATION: VITAL SIGNS: T-max is 98.1 today, pulse 63, blood pressure 118/79, respirations are 20. HEENT: Head is atraumatic, normocephalic. NECK: Supple. LUNGS: Clear. No crackles or rales present. HEART: S1 and S2, is regular. ABDOMEN: Soft, nontender. No guarding, no rigidity present. EXTREMITIES: Left foot great toe, the foot has a dressing at this time. Right foot is unremarkable. ASSESSMENT AND PLAN: I was waiting for the MRI report. MRI was done today being this morning and when I am dictating, the MRI report is now there. Findings are concerning with acute osteomyelitis of the distal phalanx of the first digit. So, now that the MRI is saying that it is distal phalanx moderate hallux valgus, and so we are going to wait for the Podiatry to see what they are going to do. We will continue vancomycin and Zosyn at this time. I knew that the trough was done this morning, and the nurse told me that the report was 17.6, peak was little low, so we will increase the dose. BUN is 7, creatinine is 0.9. I would repeat the peak again, actually I am not sure if it was done at the right time. Creatinine is 0.9. Peak was done, it is a little low, so we will increase the dose of the vancomycin. We will continue the antibiotics, and we will follow. Dr. Logan may decide to dbride due to partial amputation as she wrote as I see on her coverage note today, so we will continue and will follow. The patient has acute osteomyelitis of the left great toe. He is diabetic. He has an abscess in the buttock region, and he also has peripheral vascular disease with a runoff but was seen by Dr. Haro. Tiffany Blancas MD
[2017-12-28] MEDS: Piperacillin/Tazobact 3.375 GM in Sodium Chloride 0.9% 100 ML IVPB SCH ×3 (05:07→20:45)
[2017-12-28] MEDS: (Novolog) Insulin Aspart, Recombinant 100 u/ml 10 ml vial SC SCH ×4 (07:47→21:49)
--- NOTE | 2017-12-28 07:50 | CP.PCM.PN ---
Addendum entered and electronically signed by Stan Bates DO 12/28/17 16:11: Dr. Huff will be consulted for cardiac clearance prior to amputation. Original Note: <Stan Bates - Last Filed: 12/28/17 15:58> Subjective - Date & Time of Evaluation Date of Evaluation: 12/28/17 Time of Evaluation: 07:50 - Subjective Subjective: PGY02 note for Dr. Deluna's service: Patient seen and examined at bedside. Nursing reports no acute events overnight. Patient found lying in bed comfortably in no acute distress. Translation services utilized for encounter. He denies pain in his toe, and states he has been using rolling walker to get around. Admits tolerating diet and voiding without difficulty. Patient denies previous history of chest pain, NH, SOB, or palpitations. Denies seeing ever grade teacher as outpatient, and further denies stress test. Objective - Vital Signs/Intake and Output Vital Signs (last 24 hours): Temp Pulse Resp BP Pulse Ox 97.7 F 54 L 20 107/60 99 12/27/17 23:26 12/27/17 23:26 12/27/17 23:26 12/27/17 23:26 12/27/17 23:26 Intake and Output: 12/28/17 12/28/17 06:59 18:59 Intake Total 300 530 Balance 300 530 - Medications Medications: Current Medications Amlodipine Besylate (Norvasc) 10 mg PO DAILY [facility] Last Admin: 12/27/17 09:47 Dose: 10 mg Collagenase (Santyl) 1 gm TOP DAILY [facility] Last Admin: 12/27/17 09:51 Dose: 1 applic Dextrose (Dextrose 50% Inj) 0 ml IVP .STAT PRN; Protocol PRN Reason: Hypoglycemia Protocol Dextrose (Glutose 15) 15 gm PO .ONCE PRN; Protocol PRN Reason: Hypoglycemia Protocol Enoxaparin Sodium (Lovenox) 40 mg SC DAILY [facility] Last Admin: 12/27/17 09:48 Dose: 40 mg Glimepiride (Amaryl) 2 mg PO BID [facility] Last Admin: 12/27/17 17:38 Dose: 2 mg Glucagon (Glucagen Diagnostic Kit) 1 mg IM .STAT PRN; Protocol PRN Reason: Hypoglycemia Protocol Dextrose (Dextrose 5% In Water 1000 Ml) 1,000 mls @ 0 mls/hr IV .Q0M PRN; Protocol; Per Protocol PRN Reason: Hypoglycemia Protocol Piperacillin Sod/Tazobactam (Sod 3.375 gm/ Sodium Chloride) 100 mls @ 100 mls/ hr IVPB Q8H [facility] PRN Reason: Protocol Last Admin: 12/28/17 05:07 Dose: 100 mls/hr Vancomycin HCl 1,200 mg/ (Sodium Chloride) 250 mls @ 166.6 mls/hr IVPB Q12H [facility] PRN Reason: Protocol Last Admin: 12/28/17 00:43 Dose: 166.6 mls/hr Insulin Aspart (Novolog) 0 unit SC ACHS [facility] PRN Reason: Protocol Last Admin: 12/28/17 07:47 Dose: Not Given Metformin HCl (Glucophage) 500 mg PO BID [facility] Last Admin: 12/27/17 17:38 Dose: 500 mg Pantoprazole Sodium (Protonix Ec Tab) 40 mg PO DAILY [facility] Last Admin: 12/27/17 09:47 Dose: 40 mg Pioglitazone HCl (Actos) 15 mg PO BID [facility] Last Admin: 12/27/17 17:52 Dose: 15 mg Saccharomyces Boulardii (Florastor) 250 mg PO BID [facility] Last Admin: 12/27/17 17:41 Dose: 250 mg - Labs Labs: 12/27/17 07:49 12/27/17 07:49 PT 11.9 SECONDS (9.7-12.2) 12/22/17 16:47 INR 1.1 12/22/17 16:47 APTT 36 SECONDS (21-34) H 12/22/17 16:47 - Additional Findings Additional findings: - Constitutional Appears: Non-toxic, No Acute Distress - Head Exam Head Exam: ATRAUMATIC, NORMOCEPHALIC - Eye Exam Eye Exam: EOMI - ENT Exam ENT Exam: Mucous Membranes Moist - Respiratory Exam Respiratory Exam: NORMAL BREATHING PATTERN - Cardiovascular Exam Cardiovascular Exam: +S1, +S2 - GI/Abdominal Exam GI & Abdominal Exam: Soft, Normal bowel sound - small abscess between upper buttocks, small amt fluctuance - Extremities Exam Additional comments: Pedal pulses absent left hallux necrotic ulcer, feet warm bilaterally 1st toe wrapped in gauze bandage - Neurological Exam Neurological Exam: Alert, Awake - Psychiatric Exam Psychiatric exam: Normal Affect, Normal Mood - Skin Skin Exam: Dry, Intact Assessment and Plan - Assessment and Plan (Free Text) Plan: Left necrotic toe ulcer/osteomyelitis -CT angio shows mild to moderate atherosclerotic disease. Diffuse atherosclerotic calcification, especially posterior tibial arteries -Venous doppler negative for DVT - MRI Left Lower ext (12/27/17): Findings concerning for osteomyelitis of distal phalanx of first toe. -Arterial PVR positive for B/L LE arterial calc and small vessel disease -Left toe x-ray shows cortical irregularity distal phalanx 1st digit. Soft tissue swelling. Suspicious for acute osteomyelitis -Vascular surgery consulted, no surgical intervention recommended -ESR 30, Afebrile, no leukocytosis -ID consulted, Dr. Blancas help appreciated -Zosyn 3.375gm Q8 (started 12/23) -Vancomycin 1gm Q12h (started 12/22) - start Kerayl Podiatry consult, Dr. Logan - help appreciated - recommending amputation of great toe next 01/03/18 Pre-op labs: f/u EKG CXR (12/26/17): NAD Coags: INR 1.1, PTT 36 Padilla score: 0.2% risk of NH or cardiac arrest, intraoperatively or up to 30 days post-op Blood culture (12/22/17): No growth x 5 days Sacral abscess Antibiotics as above Wound Care - yloa Haro, Gen Surgery - No I&D necessary - Hibclens wash DM Well controlled, A1c: 7.0 -Metformin 500mg BID -Glimepiride 2mg BID -Pioglitazone 500mg BID -ISS -Finger stick ACHS -Hypoglycemia protocol HTN Well controlled -Amlodipine 10mg Prophylactic measures -Lovenox -Protonix -Florastor Disposition: Pt will require long-term ABX. PICC placed. Pt needs additional 36 days of IV antibiotics. Pre-op labs/studies ordered. Dr. Deluna to assess for patient need of cardiac consult. All management per Dr. Earnestine Deluna <Dariana Deluna - Last Filed: 12/31/17 09:32> Objective - Vital Signs/Intake and Output Vital Signs (last 24 hours): Temp Pulse Resp BP Pulse Ox 98.3 F 57 L 20 125/61 97 12/30/17 23:27 12/30/17 23:27 12/30/17 23:27 12/30/17 23:27 12/30/17 23:27 Intake and Output: 12/31/17 12/31/17 06:59 18:59 Intake Total 550 Balance 550 - Medications Medications: Current Medications Acetaminophen (Tylenol 325mg Tab) 650 mg PO Q6 PRN PRN Reason: Fever >100.4 F Amlodipine Besylate (Norvasc) 10 mg PO DAILY [facility] Last Admin: 12/30/17 10:28 Dose: 10 mg Collagenase (Santyl) 1 gm TOP DAILY [facility] Last Admin: 12/30/17 10:28 Dose: 1 applic Dextrose (Dextrose 50% Inj) 0 ml IVP .STAT PRN; Protocol PRN Reason: Hypoglycemia Protocol Dextrose (Glutose 15) 15 gm PO .ONCE PRN; Protocol PRN Reason: Hypoglycemia Protocol Glimepiride (Amaryl) 2 mg PO BID [facility] Last Admin: 12/30/17 17:42 Dose: 2 mg Glucagon (Glucagen Diagnostic Kit) 1 mg IM .STAT PRN; Protocol PRN Reason: Hypoglycemia Protocol Piperacillin Sod/Tazobactam (Sod 3.375 gm/ Sodium Chloride) 100 mls @ 100 mls/ hr IVPB Q8H [facility] PRN Reason: Protocol Last Admin: 12/31/17 05:09 Dose: 100 mls/hr Vancomycin HCl 1,200 mg/ (Sodium Chloride) 250 mls @ 166.6 mls/hr IVPB Q12H [facility] PRN Reason: Protocol Last Admin: 12/30/17 23:54 Dose: 166.6 mls/hr Insulin Aspart (Novolog) 0 unit SC ACHS [facility] PRN Reason: Protocol Last Admin: 12/31/17 08:02 Dose: Not Given Metformin HCl (Glucophage) 500 mg PO BID [facility] Last Admin: 12/30/17 17:43 Dose: 500 mg Pantoprazole Sodium (Protonix Ec Tab) 40 mg PO DAILY [facility] Last Admin: 12/30/17 10:27 Dose: 40 mg Pioglitazone HCl (Actos) 15 mg PO BID [facility] Last Admin: 12/30/17 17:42 Dose: 15 mg Saccharomyces Boulardii (Florastor) 250 mg PO BID [facility] Last Admin: 12/30/17 17:46 Dose: 250 mg - Labs Labs: 12/30/17 07:12 12/30/17 07:12 PT 11.9 SECONDS (9.7-12.2) 12/22/17 16:47 INR 1.1 12/22/17 16:47 APTT 36 SECONDS (21-34) H 12/22/17 16:47 Assessment and Plan (1) Diabetes 1.5, managed as type 2 Status: Acute (2) Nonhealing ulcer of left lower extremity Status: Acute (3) Osteomyelitis Status: Acute (4) Hypertension Status: Acute Attending/Attestation - Attestation I have personally seen and examined this patient.: Yes I have fully participated in the care of the patient.: Yes I have reviewed all pertinent clinical information, including history, physical exam and plan: Yes Notes (Text): case seen and d.w staff and resident, concurred with finding and management..
[2017-12-28 08:03] LABS: BASO # 0.1 K/uL (0.0-0.2); EOS # 0.4 K/uL (0.0-0.7); EOS % 6.5 % (0.0-4.0); HEMOGLOBIN 11.6 g/dL (12.0-18.0); LYMPH # 1.3 K/uL (1.0-4.3); LYMPH % 19.7 % (20.0-40.0); MEAN CELL VOLUME 87.4 fL (80.0-94.0); MEAN CORPUSCULAR HEMOGLOBIN 31.1 pg (27.0-31.0); MEAN CORPUSCULAR HGB CONC 35.6 g/dL (33.0-37.0); MEAN PLATELET VOLUME 6.5 fL (7.2-11.7); MONO # 0.6 K/uL (0.0-0.8); MONO % 8.4 % (0.0-10.0); NEUT # 4.2 K/uL (1.8-7.0); NEUT % 64.4 % (50.0-75.0); NRBC % 0.1 % (0.0-2.0); RBC 3.73 Mil/uL (4.40-5.90); RED CELL DISTRIBUTION WIDTH 14.1 % (11.5-14.5); WHITE BLOOD COUNT 6.5 K/uL (4.8-10.8)
[2017-12-28 08:15] LABS: ALB/GLOB RATIO 1.1 (1.0-2.1); ALBUMIN 3.5 g/dL (3.5-5.0); ALT/SGPT 25 U/L (21-72); AST/SGOT 42 U/L (17-59); BLOOD UREA NITROGEN 7 mg/dL (9-20); CALCIUM 9.2 mg/dl (8.6-10.4); GFR AFRICAN-AMERICAN > 60; GFR NON-AFRICAN AMERICAN > 60
[2017-12-28] MEDS: Saccharomyces Boulardi 250 mg Cap PO SCH ×2 (09:31→17:50)
[2017-12-28] MEDS: Pantoprazole 40 mg EC Tab PO SCH (09:32)
[2017-12-28] MEDS: Enoxaparin 40 mg Syringe SC SCH (09:32)
[2017-12-28] MEDS: Collagenase 250 Units/gm Ointment(30 gm) TOP SCH (09:35)
--- NOTE | 2017-12-28 14:39 | CP.PCM.PN ---
Subjective - Date & Time of Evaluation Date of Evaluation: 12/28/17 Time of Evaluation: 14:36 - Subjective Subjective: Podiary note for Dr. Logan 62 yo male patient was seen at bedside this [facility] concerning Left foot gangrenous hallux. Patient is resting in bed without acute distress, AAOx3. Dressing to Left foot remains clean dry and intact. Patient was advised of podiatry plan for surgical intervention of Left hallux amputation next Monday01/03/18. Patient understands the need for surgery and agrees with podiatry plan. Patient denies of any N/V/F/C or SOB today Objective - Vital Signs/Intake and Output Vital Signs (last 24 hours): Temp Pulse Resp BP Pulse Ox 97.6 F 60 20 136/66 98 12/28/17 08:37 12/28/17 08:37 12/28/17 08:37 12/28/17 08:37 12/28/17 08:37 Intake and Output: 12/28/17 12/28/17 06:59 18:59 Intake Total 300 530 Balance 300 530 - Medications Medications: Current Medications Amlodipine Besylate (Norvasc) 10 mg PO DAILY [facility] Last Admin: 12/28/17 09:31 Dose: 10 mg Collagenase (Santyl) 1 gm TOP DAILY [facility] Last Admin: 12/28/17 09:35 Dose: 1 applic Dextrose (Dextrose 50% Inj) 0 ml IVP .STAT PRN; Protocol PRN Reason: Hypoglycemia Protocol Dextrose (Glutose 15) 15 gm PO .ONCE PRN; Protocol PRN Reason: Hypoglycemia Protocol Enoxaparin Sodium (Lovenox) 40 mg SC DAILY [facility] Last Admin: 12/28/17 09:32 Dose: 40 mg Glimepiride (Amaryl) 2 mg PO BID [facility] Last Admin: 12/28/17 09:31 Dose: 2 mg Glucagon (Glucagen Diagnostic Kit) 1 mg IM .STAT PRN; Protocol PRN Reason: Hypoglycemia Protocol Piperacillin Sod/Tazobactam (Sod 3.375 gm/ Sodium Chloride) 100 mls @ 100 mls/ hr IVPB Q8H [facility] PRN Reason: Protocol Last Admin: 12/28/17 13:45 Dose: 100 mls/hr Vancomycin HCl 1,200 mg/ (Sodium Chloride) 250 mls @ 166.6 mls/hr IVPB Q12H [facility] PRN Reason: Protocol Last Admin: 12/28/17 11:32 Dose: 166.6 mls/hr Insulin Aspart (Novolog) 0 unit SC ACHS [facility] PRN Reason: Protocol Last Admin: 12/28/17 11:46 Dose: 1 unit Metformin HCl (Glucophage) 500 mg PO BID [facility] Last Admin: 12/28/17 09:31 Dose: 500 mg Pantoprazole Sodium (Protonix Ec Tab) 40 mg PO DAILY [facility] Last Admin: 12/28/17 09:32 Dose: 40 mg Pioglitazone HCl (Actos) 15 mg PO BID [facility] Last Admin: 12/28/17 09:32 Dose: 15 mg Saccharomyces Boulardii (Florastor) 250 mg PO BID [facility] Last Admin: 12/28/17 09:31 Dose: 250 mg - Labs Labs: 12/28/17 07:51 12/28/17 07:51 PT 11.9 SECONDS (9.7-12.2) 12/22/17 16:47 INR 1.1 12/22/17 16:47 APTT 36 SECONDS (21-34) H 12/22/17 16:47 - Constitutional Appears: Well, Non-toxic, No Acute Distress - Head Exam Head Exam: ATRAUMATIC - Extremities Exam Additional comments: Left lower extremity exam DERM: Unstageable necrotic eschar noted to distal aspect of Left hallux. Dry eschar measures 3cm x 2cm. No purulent drainage is noted. Mild odor is noted. Mild erythema noted around the eschar. VASC: Nonpalpable DP, PT noted to Left foot. Palpable DP and PT noted to Right foot NEURO: Gross sensation intact - Neurological Exam Neurological Exam: Alert, Awake, Oriented x3 - Psychiatric Exam Psychiatric exam: Normal Affect, Normal Mood - Skin Skin Exam: Normal Color, Warm Assessment and Plan - Assessment and Plan (Free Text) Assessment: 62 yo male patient presenting with Left gangrenous hallux Plan: Patient was seen, evaluated at bedside Labs and vitals reviewed; WBC 6.5 MRI reveals evidence of OM to distal phalanx of Left hallux Podiatry plan for Left hallux amputation next Monday01/03/18 Left foot dressed with Betadine Soaked DSD Podiatry will continue to follow in-house
--- NOTE | 2017-12-28 18:48 | CP.PCM.PN ---
Subjective - Date & Time of Evaluation Date of Evaluation: 12/28/17 Time of Evaluation: 03:00 - Subjective Subjective: dictated Objective - Vital Signs/Intake and Output Vital Signs (last 24 hours): Temp Pulse Resp BP Pulse Ox 98.2 F 53 L 20 152/63 H 100 12/28/17 16:00 12/28/17 16:00 12/28/17 16:00 12/28/17 16:00 12/28/17 16:00 Intake and Output: 12/28/17 12/28/17 06:59 18:59 Intake Total 300 1380 Balance 300 1380 - Medications Medications: Current Medications Amlodipine Besylate (Norvasc) 10 mg PO DAILY [facility] Last Admin: 12/28/17 09:31 Dose: 10 mg Collagenase (Santyl) 1 gm TOP DAILY [facility] Last Admin: 12/28/17 09:35 Dose: 1 applic Dextrose (Dextrose 50% Inj) 0 ml IVP .STAT PRN; Protocol PRN Reason: Hypoglycemia Protocol Dextrose (Glutose 15) 15 gm PO .ONCE PRN; Protocol PRN Reason: Hypoglycemia Protocol Enoxaparin Sodium (Lovenox) 40 mg SC DAILY [facility] Last Admin: 12/28/17 09:32 Dose: 40 mg Glimepiride (Amaryl) 2 mg PO BID [facility] Last Admin: 12/28/17 17:50 Dose: 2 mg Glucagon (Glucagen Diagnostic Kit) 1 mg IM .STAT PRN; Protocol PRN Reason: Hypoglycemia Protocol Piperacillin Sod/Tazobactam (Sod 3.375 gm/ Sodium Chloride) 100 mls @ 100 mls/ hr IVPB Q8H [facility] PRN Reason: Protocol Last Admin: 12/28/17 13:45 Dose: 100 mls/hr Vancomycin HCl 1,200 mg/ (Sodium Chloride) 250 mls @ 166.6 mls/hr IVPB Q12H [facility] PRN Reason: Protocol Last Admin: 12/28/17 11:32 Dose: 166.6 mls/hr Insulin Aspart (Novolog) 0 unit SC ACHS [facility] PRN Reason: Protocol Last Admin: 12/28/17 16:30 Dose: 2 unit Metformin HCl (Glucophage) 500 mg PO BID [facility] Last Admin: 12/28/17 17:50 Dose: 500 mg Pantoprazole Sodium (Protonix Ec Tab) 40 mg PO DAILY [facility] Last Admin: 12/28/17 09:32 Dose: 40 mg Pioglitazone HCl (Actos) 15 mg PO BID [facility] Last Admin: 12/28/17 17:50 Dose: 15 mg Saccharomyces Boulardii (Florastor) 250 mg PO BID [facility] Last Admin: 12/28/17 17:50 Dose: 250 mg - Labs Labs: 12/28/17 07:51 12/28/17 07:51 PT 11.9 SECONDS (9.7-12.2) 12/22/17 16:47 INR 1.1 12/22/17 16:47 APTT 36 SECONDS (21-34) H 12/22/17 16:47
--- NOTE | 2017-12-28 20:28 | PN ---
DATE: ___12/28/17__ SUBJECTIVE: The patient is afebrile. He has a PICC line. Heart rate is 53, blood pressure 152.63, respirations are 20. He is he is awake and alert. I spoke to him in his language and told him that he will need surgery on his left foot great toe and portuguese tutor following for clearance and Podiatry wanted to know from Vascular and I have continued IV antibiotics with a PICC line at this time and plan is to have surgery next week, so we will continue present antibiotics. He still has small abscess on his sacral area. He says it bothers him sometimes when he is sitting and I think it should get better with the antibiotics and to be followed up by the surgeon. PHYSICAL EXAMINATION: GENERAL: He is awake, alert, offers no new complaints. NECK: Supple. LUNGS: Clear. HEART: S1, S2 are regular, bradycardia present. ABDOMEN: Soft, nontender. No guarding, no rigidity present. EXTREMITIES: Left foot has a dressing at this time. LABORATORY DATA: Labs are noted. Labs show white count is 6.5, hemoglobin 11.6, hematocrit 32.6, platelet count is 444 and he had a vancomycin peak which was low, so I have increased the dose to vancomycin 1200 every 12 hours and so he is getting twice a day. At this time, he also remains on Zosyn. ASSESSMENT AND PLAN: He does have a necrotic eschar on the foot and an abscess and has osteomyelitis of the left hallux with the MRI. MRI showed osteomyelitis of the distal phalanx of the first digit but the is extending to greater length, so I think when they evaluate in the OR they will find out more. At this time I will continue the antibiotics and we will follow and we will follow and will also need to get a vancomycin peak and trough soon. Tiffany Blancas MD MTDJaylon
--- NOTE | 2017-12-28 21:02 | CP.PCM.PN ---
Subjective - Date & Time of Evaluation Date of Evaluation: 12/28/17 Time of Evaluation: 07:40 - Subjective Subjective: clinically same Objective - Vital Signs/Intake and Output Vital Signs (last 24 hours): Temp Pulse Resp BP Pulse Ox 98.2 F 53 L 20 152/63 H 100 12/28/17 16:00 12/28/17 16:00 12/28/17 16:00 12/28/17 16:00 12/28/17 16:00 Intake and Output: 12/28/17 12/29/17 18:59 06:59 Intake Total 1380 Balance 1380 - Medications Medications: Current Medications Amlodipine Besylate (Norvasc) 10 mg PO DAILY [facility] Last Admin: 12/28/17 09:31 Dose: 10 mg Collagenase (Santyl) 1 gm TOP DAILY [facility] Last Admin: 12/28/17 09:35 Dose: 1 applic Dextrose (Dextrose 50% Inj) 0 ml IVP .STAT PRN; Protocol PRN Reason: Hypoglycemia Protocol Dextrose (Glutose 15) 15 gm PO .ONCE PRN; Protocol PRN Reason: Hypoglycemia Protocol Enoxaparin Sodium (Lovenox) 40 mg SC DAILY [facility] Last Admin: 12/28/17 09:32 Dose: 40 mg Glimepiride (Amaryl) 2 mg PO BID [facility] Last Admin: 12/28/17 17:50 Dose: 2 mg Glucagon (Glucagen Diagnostic Kit) 1 mg IM .STAT PRN; Protocol PRN Reason: Hypoglycemia Protocol Piperacillin Sod/Tazobactam (Sod 3.375 gm/ Sodium Chloride) 100 mls @ 100 mls/ hr IVPB Q8H DIA PRN Reason: Protocol Last Admin: 12/28/17 13:45 Dose: 100 mls/hr Vancomycin HCl 1,200 mg/ (Sodium Chloride) 250 mls @ 166.6 mls/hr IVPB Q12H DIA PRN Reason: Protocol Last Admin: 12/28/17 11:32 Dose: 166.6 mls/hr Insulin Aspart (Novolog) 0 unit SC ACHS [facility] PRN Reason: Protocol Last Admin: 12/28/17 16:30 Dose: 2 unit Metformin HCl (Glucophage) 500 mg PO BID [facility] Last Admin: 12/28/17 17:50 Dose: 500 mg Pantoprazole Sodium (Protonix Ec Tab) 40 mg PO DAILY [facility] Last Admin: 12/28/17 09:32 Dose: 40 mg Pioglitazone HCl (Actos) 15 mg PO BID [facility] Last Admin: 12/28/17 17:50 Dose: 15 mg Saccharomyces Boulardii (Florastor) 250 mg PO BID [facility] Last Admin: 12/28/17 17:50 Dose: 250 mg - Labs Labs: 12/28/17 07:51 12/28/17 07:51 PT 11.9 SECONDS (9.7-12.2) 12/22/17 16:47 INR 1.1 12/22/17 16:47 APTT 36 SECONDS (21-34) H 12/22/17 16:47 - Constitutional Appears: Well - Head Exam Head Exam: ATRAUMATIC, NORMAL INSPECTION, NORMOCEPHALIC - Eye Exam Eye Exam: EOMI, Normal appearance, PERRL Pupil Exam: NORMAL ACCOMODATION, PERRL - ENT Exam ENT Exam: Mucous Membranes Moist, Normal Exam - Neck Exam Neck Exam: Full ROM, Normal Inspection. absent: Lymphadenopathy - Respiratory Exam Respiratory Exam: Decreased Breath Sounds - Cardiovascular Exam Cardiovascular Exam: REGULAR RHYTHM, +S1, +S2 - GI/Abdominal Exam GI & Abdominal Exam: Soft, Diminished Bowel Sounds - Rectal Exam Rectal Exam: Deferred Assessment and Plan (1) Diabetes 1.5, managed as type 2 Status: Acute (2) Hypertension Status: Acute (3) Nonhealing ulcer of left lower extremity Status: Acute (4) Osteomyelitis Status: Acute - Assessment and Plan (Free Text) Plan: Left necrotic toe ulcer/osteomyelitis -CT angio shows mild to moderate atherosclerotic disease. Diffuse atherosclerotic calcification, especially posterior tibial arteries -Venous doppler negative for DVT - MRI Left Lower ext (12/27/17): Findings concerning for osteomyelitis of distal phalanx of first toe. -Arterial PVR positive for B/L LE arterial calc and small vessel disease -Left toe x-ray shows cortical irregularity distal phalanx 1st digit. Soft tissue swelling. Suspicious for acute osteomyelitis -Vascular surgery consulted, no surgical intervention recommended -ESR 30, Afebrile, no leukocytosis -ID consulted, Dr. Blancas help appreciated -Zosyn 3.375gm Q8 (started 12/23) -Vancomycin 1gm Q12h (started 12/22) - start Santyl Podiatry consult, Dr. Logan - help appreciated - recommending amputation of great toe next 01/03/18 Pre-op labs: f/u EKG CXR (12/26/17): NAD Coags: INR 1.1, PTT 36 Padilla score: 0.2% risk of [place] or cardiac arrest, intraoperatively or up to 30 days post-op Blood culture (12/22/17): No growth x 5 days Sacral abscess Antibiotics as above Wound Care - yola Haro, Gen Surgery - No I&D necessary - Hibclens wash DM Well controlled, A1c: 7.0 -Metformin 500mg BID -Glimepiride 2mg BID -Pioglitazone 500mg BID -ISS -Finger stick ACHS -Hypoglycemia protocol HTN Well controlled -Amlodipine 10mg Prophylactic measures -Lovenox -Protonix -Florastor Disposition: Pt will require long-term ABX. PICC placed. Pt needs additional 36 days of IV antibiotics. Pre-op labs/studies ordered. Dr. Deluna to assess for patient need of cardiac consult.
[2017-12-29] MEDS: Piperacillin/Tazobact 3.375 GM in Sodium Chloride 0.9% 100 ML IVPB SCH ×3 (04:42→21:07)
[2017-12-29 06:54] LABS: BASO # 0.1 K/uL (0.0-0.2); BASO % 1.1 % (0.0-2.0); EOS # 0.4 K/uL (0.0-0.7); EOS % 7.4 % (0.0-4.0); HEMOGLOBIN 11.7 g/dL (12.0-18.0); LYMPH # 1.3 K/uL (1.0-4.3); LYMPH % 21.9 % (20.0-40.0); MEAN CELL VOLUME 88.4 fL (80.0-94.0); MEAN CORPUSCULAR HEMOGLOBIN 30.7 pg (27.0-31.0); MEAN CORPUSCULAR HGB CONC 34.7 g/dL (33.0-37.0); MEAN PLATELET VOLUME 6.6 fL (7.2-11.7); MONO # 0.6 K/uL (0.0-0.8); MONO % 9.1 % (0.0-10.0); NEUT # 3.7 K/uL (1.8-7.0); NEUT % 60.5 % (50.0-75.0); RBC 3.83 Mil/uL (4.40-5.90); RED CELL DISTRIBUTION WIDTH 14.4 % (11.5-14.5); WHITE BLOOD COUNT 6.1 K/uL (4.8-10.8)
[2017-12-29 06:57] LABS: ALB/GLOB RATIO 1.3 (1.0-2.1); ALT/SGPT 20 U/L (21-72); AST/SGOT 27 U/L (17-59); BLOOD UREA NITROGEN 9 mg/dL (9-20); CALCIUM 8.9 mg/dl (8.6-10.4); GFR AFRICAN-AMERICAN > 60; GFR NON-AFRICAN AMERICAN > 60
[2017-12-29] MEDS: (Novolog) Insulin Aspart, Recombinant 100 u/ml 10 ml vial SC SCH ×4 (08:23→22:44)
--- NOTE | 2017-12-29 09:19 | CP.PCM.PN ---
<Stan Bates - Last Filed: 12/29/17 17:47> Subjective - Date & Time of Evaluation Date of Evaluation: 12/29/17 Time of Evaluation: 09:19 - Subjective Subjective: PGY02 note for Dr. Deluna's service: Patient seen and examined at bedside. Nursing reports no acute events overnight. Patient found resting in bed comfortably. Translation service used at bedside. Denies pain in his extremity this morning. Further denies fever, chills, chest pain, SOB, or palpitations. Objective - Vital Signs/Intake and Output Vital Signs (last 24 hours): Temp Pulse Resp BP Pulse Ox 98.4 F 70 20 136/70 99 12/29/17 08:51 12/29/17 08:51 12/29/17 08:51 12/29/17 08:51 12/29/17 08:51 Intake and Output: 12/29/17 12/29/17 06:59 18:59 Intake Total 530 Balance 530 - Medications Medications: Current Medications Amlodipine Besylate (Norvasc) 10 mg PO DAILY [facility] Last Admin: 12/28/17 09:31 Dose: 10 mg Collagenase (Santyl) 1 gm TOP DAILY [facility] Last Admin: 12/28/17 09:35 Dose: 1 applic Dextrose (Dextrose 50% Inj) 0 ml IVP .STAT PRN; Protocol PRN Reason: Hypoglycemia Protocol Dextrose (Glutose 15) 15 gm PO .ONCE PRN; Protocol PRN Reason: Hypoglycemia Protocol Enoxaparin Sodium (Lovenox) 40 mg SC DAILY [facility] Last Admin: 12/28/17 09:32 Dose: 40 mg Glimepiride (Amaryl) 2 mg PO BID [facility] Last Admin: 12/28/17 17:50 Dose: 2 mg Glucagon (Glucagen Diagnostic Kit) 1 mg IM .STAT PRN; Protocol PRN Reason: Hypoglycemia Protocol Piperacillin Sod/Tazobactam (Sod 3.375 gm/ Sodium Chloride) 100 mls @ 100 mls/ hr IVPB Q8H DIA PRN Reason: Protocol Last Admin: 12/29/17 04:42 Dose: 100 mls/hr Vancomycin HCl 1,200 mg/ (Sodium Chloride) 250 mls @ 166.6 mls/hr IVPB Q12H DIA PRN Reason: Protocol Last Admin: 12/29/17 00:16 Dose: 166.6 mls/hr Insulin Aspart (Novolog) 0 unit SC ACHS [facility] PRN Reason: Protocol Last Admin: 12/29/17 08:23 Dose: 1 unit Metformin HCl (Glucophage) 500 mg PO BID [facility] Last Admin: 12/28/17 17:50 Dose: 500 mg Pantoprazole Sodium (Protonix Ec Tab) 40 mg PO DAILY [facility] Last Admin: 12/28/17 09:32 Dose: 40 mg Pioglitazone HCl (Actos) 15 mg PO BID [facility] Last Admin: 12/28/17 17:50 Dose: 15 mg Saccharomyces Boulardii (Florastor) 250 mg PO BID [facility] Last Admin: 12/28/17 17:50 Dose: 250 mg - Labs Labs: 12/29/17 06:29 12/29/17 06:29 PT 11.9 SECONDS (9.7-12.2) 12/22/17 16:47 INR 1.1 12/22/17 16:47 APTT 36 SECONDS (21-34) H 12/22/17 16:47 - Additional Findings Additional findings: - Constitutional Appears: Non-toxic, No Acute Distress - Head Exam Head Exam: ATRAUMATIC, NORMOCEPHALIC - Eye Exam Eye Exam: EOMI - ENT Exam ENT Exam: Mucous Membranes Moist - Respiratory Exam Respiratory Exam: NORMAL BREATHING PATTERN - Cardiovascular Exam Cardiovascular Exam: +S1, +S2 - GI/Abdominal Exam GI & Abdominal Exam: Soft, Normal bowel sound - small abscess between upper buttocks, small amt fluctuance - Extremities Exam Additional comments: Pedal pulses absent left hallux necrotic ulcer, feet warm bilaterally 1st toe wrapped in gauze bandage - now bloody - Neurological Exam Neurological Exam: Alert, Awake - Psychiatric Exam Psychiatric exam: Normal Affect, Normal Mood - Skin Skin Exam: Dry, Intact Assessment and Plan - Assessment and Plan (Free Text) Plan: Left necrotic toe ulcer/osteomyelitis Admit to med/surg -CT angio shows mild to moderate atherosclerotic disease. Diffuse atherosclerotic calcification, especially posterior tibial arteries -Venous doppler negative for DVT -MRI Left Lower ext (12/27/17): Findings concerning for osteomyelitis of distal phalanx of first toe. -Arterial PVR positive for B/L LE arterial calc and small vessel disease -Left toe x-ray shows cortical irregularity distal phalanx 1st digit. Soft tissue swelling. Suspicious for acute osteomyelitis -Vascular surgery consulted, no surgical intervention recommended -ESR 30, Afebrile, no leukocytosis ID consulted, Dr. Blancas help appreciated -Zosyn 3.375gm Q8 (Day 7, started 12/23) -Vancomycin 1gm Q12h (Day 8,started 12/22) - Santyl - Tylenol 650mg PO Q6H for fever Podiatry consult, Dr. Logan - help appreciated - recommending amputation of great toe next 01/03/18 Pre-op labs: EKG (12/28/17): NSR @ 62bpm, 1st degree AV block, prolonged QTc (487 msec), CXR (12/26/17): NAD Coags: INR 1.1, PTT 36 Padilla score: 0.2% risk of [place] or cardiac arrest, intraoperatively or up to 30 days post-op Blood culture (12/22/17): No growth x 5 days Prolonged QTc EKG (12/28/17): NSR @ 62bpm, 1st degree AV block, prolonged QTc (487 msec) f/u repeat EKG Sacral abscess Antibiotics as above Wound Care - yola Haro, Gen Surgery - No I&D necessary - Hibclens wash DM Well controlled, A1c: 7.0 -Metformin 500mg BID -Glimepiride 2mg BID -Pioglitazone 500mg BID -ISS -Finger stick ACHS -Hypoglycemia protocol HTN Well controlled -Amlodipine 10mg Prophylactic measures -Lovenox -Protonix -Florastor Disposition: Pt will require long-term ABX. PICC placed and functioning. Cardiac consult placed to Dr. Abdi/Levi group. Dr. Sims will see on 12/30. All management per Dr. Earnestine Deluna <Dariana Deluna - Last Filed: 12/31/17 09:29> Objective - Vital Signs/Intake and Output Vital Signs (last 24 hours): Temp Pulse Resp BP Pulse Ox 98.3 F 57 L 20 125/61 97 12/30/17 23:27 12/30/17 23:27 12/30/17 23:27 12/30/17 23:27 12/30/17 23:27 Intake and Output: 12/31/17 12/31/17 06:59 18:59 Intake Total 550 Balance 550 - Medications Medications: Current Medications Acetaminophen (Tylenol 325mg Tab) 650 mg PO Q6 PRN PRN Reason: Fever >100.4 F Amlodipine Besylate (Norvasc) 10 mg PO DAILY [facility] Last Admin: 12/30/17 10:28 Dose: 10 mg Collagenase (Santyl) 1 gm TOP DAILY [facility] Last Admin: 12/30/17 10:28 Dose: 1 applic Dextrose (Dextrose 50% Inj) 0 ml IVP .STAT PRN; Protocol PRN Reason: Hypoglycemia Protocol Dextrose (Glutose 15) 15 gm PO .ONCE PRN; Protocol PRN Reason: Hypoglycemia Protocol Glimepiride (Amaryl) 2 mg PO BID [facility] Last Admin: 12/30/17 17:42 Dose: 2 mg Glucagon (Glucagen Diagnostic Kit) 1 mg IM .STAT PRN; Protocol PRN Reason: Hypoglycemia Protocol Piperacillin Sod/Tazobactam (Sod 3.375 gm/ Sodium Chloride) 100 mls @ 100 mls/ hr IVPB Q8H DIA PRN Reason: Protocol Last Admin: 12/31/17 05:09 Dose: 100 mls/hr Vancomycin HCl 1,200 mg/ (Sodium Chloride) 250 mls @ 166.6 mls/hr IVPB Q12H DIA PRN Reason: Protocol Last Admin: 12/30/17 23:54 Dose: 166.6 mls/hr Insulin Aspart (Novolog) 0 unit SC ACHS DIA PRN Reason: Protocol Last Admin: 12/31/17 08:02 Dose: Not Given Metformin HCl (Glucophage) 500 mg PO BID [facility] Last Admin: 12/30/17 17:43 Dose: 500 mg Pantoprazole Sodium (Protonix Ec Tab) 40 mg PO DAILY [facility] Last Admin: 12/30/17 10:27 Dose: 40 mg Pioglitazone HCl (Actos) 15 mg PO BID [facility] Last Admin: 12/30/17 17:42 Dose: 15 mg Saccharomyces Boulardii (Florastor) 250 mg PO BID [facility] Last Admin: 12/30/17 17:46 Dose: 250 mg - Labs Labs: 12/30/17 07:12 12/30/17 07:12 PT 11.9 SECONDS (9.7-12.2) 12/22/17 16:47 INR 1.1 12/22/17 16:47 APTT 36 SECONDS (21-34) H 12/22/17 16:47 Attending/Attestation - Attestation I have personally seen and examined this patient.: Yes I have fully participated in the care of the patient.: Yes I have reviewed all pertinent clinical information, including history, physical exam and plan: Yes
[2017-12-29] MEDS: Saccharomyces Boulardi 250 mg Cap PO SCH ×2 (09:36→17:27)
[2017-12-29] MEDS: Enoxaparin 40 mg Syringe SC SCH (09:36)
[2017-12-29] MEDS: Pantoprazole 40 mg EC Tab PO SCH (09:37)
[2017-12-29] MEDS: Collagenase 250 Units/gm Ointment(30 gm) TOP SCH (10:15)
--- NOTE | 2017-12-29 15:40 | CP.PCM.PN ---
Subjective - Date & Time of Evaluation Date of Evaluation: 12/29/17 Time of Evaluation: 08:00 - Subjective Subjective: clinically same Objective - Vital Signs/Intake and Output Vital Signs (last 24 hours): Temp Pulse Resp BP Pulse Ox 98.4 F 70 20 136/70 99 12/29/17 08:51 12/29/17 08:51 12/29/17 08:51 12/29/17 08:51 12/29/17 09:30 Intake and Output: 12/29/17 12/29/17 06:59 18:59 Intake Total 1380 Balance 1380 - Medications Medications: Current Medications Amlodipine Besylate (Norvasc) 10 mg PO DAILY [facility] Last Admin: 12/29/17 09:36 Dose: 10 mg Collagenase (Santyl) 1 gm TOP DAILY [facility] Last Admin: 12/29/17 10:15 Dose: 1 applic Dextrose (Dextrose 50% Inj) 0 ml IVP .STAT PRN; Protocol PRN Reason: Hypoglycemia Protocol Dextrose (Glutose 15) 15 gm PO .ONCE PRN; Protocol PRN Reason: Hypoglycemia Protocol Enoxaparin Sodium (Lovenox) 40 mg SC DAILY [facility] Last Admin: 12/29/17 09:36 Dose: 40 mg Glimepiride (Amaryl) 2 mg PO BID [facility] Last Admin: 12/29/17 09:37 Dose: 2 mg Glucagon (Glucagen Diagnostic Kit) 1 mg IM .STAT PRN; Protocol PRN Reason: Hypoglycemia Protocol Piperacillin Sod/Tazobactam (Sod 3.375 gm/ Sodium Chloride) 100 mls @ 100 mls/ hr IVPB Q8H DIA PRN Reason: Protocol Last Admin: 12/29/17 11:56 Dose: 100 mls/hr Vancomycin HCl 1,200 mg/ (Sodium Chloride) 250 mls @ 166.6 mls/hr IVPB Q12H [facility] PRN Reason: Protocol Last Admin: 12/29/17 12:16 Dose: 166.6 mls/hr Insulin Aspart (Novolog) 0 unit SC ACHS [facility] PRN Reason: Protocol Last Admin: 12/29/17 11:53 Dose: 2 unit Metformin HCl (Glucophage) 500 mg PO BID [facility] Last Admin: 12/29/17 09:37 Dose: 500 mg Pantoprazole Sodium (Protonix Ec Tab) 40 mg PO DAILY [facility] Last Admin: 12/29/17 09:37 Dose: 40 mg Pioglitazone HCl (Actos) 15 mg PO BID [facility] Last Admin: 12/29/17 09:37 Dose: 15 mg Saccharomyces Boulardii (Florastor) 250 mg PO BID [facility] Last Admin: 12/29/17 09:36 Dose: 250 mg - Labs Labs: 12/29/17 06:29 12/29/17 06:29 PT 11.9 SECONDS (9.7-12.2) 12/22/17 16:47 INR 1.1 12/22/17 16:47 APTT 36 SECONDS (21-34) H 12/22/17 16:47 - Constitutional Appears: Well - Head Exam Head Exam: ATRAUMATIC, NORMAL INSPECTION, NORMOCEPHALIC - Eye Exam Eye Exam: EOMI, Normal appearance, PERRL Pupil Exam: NORMAL ACCOMODATION, PERRL - ENT Exam ENT Exam: Mucous Membranes Moist, Normal Exam - Neck Exam Neck Exam: Full ROM, Normal Inspection. absent: Lymphadenopathy - Respiratory Exam Respiratory Exam: Decreased Breath Sounds - Cardiovascular Exam Cardiovascular Exam: REGULAR RHYTHM, +S1, +S2 - GI/Abdominal Exam GI & Abdominal Exam: Soft, Diminished Bowel Sounds - Rectal Exam Rectal Exam: Deferred Assessment and Plan (1) Diabetes 1.5, managed as type 2 Status: Acute (2) Nonhealing ulcer of left lower extremity Status: Acute (3) Osteomyelitis Status: Acute (4) Hypertension Status: Acute - Assessment and Plan (Free Text) Plan: Casein and discussed with the staff Left necrotic toe ulcer/osteomyelitis Admit to med/surg -CT angio shows mild to moderate atherosclerotic disease. Diffuse atherosclerotic calcification, especially posterior tibial arteries -Venous doppler negative for DVT -MRI Left Lower ext (12/27/17): Findings concerning for osteomyelitis of distal phalanx of first toe. -Arterial PVR positive for B/L LE arterial calc and small vessel disease -Left toe x-ray shows cortical irregularity distal phalanx 1st digit. Soft tissue swelling. Suspicious for acute osteomyelitis -Vascular surgery consulted, no surgical intervention recommended -ESR 30, Afebrile, no leukocytosis ID consulted, Dr. Blancas help appreciated -Zosyn 3.375gm Q8 (Day 7, started 12/23) -Vancomycin 1gm Q12h (Day 8,started 12/22) - Santyl - Tylenol 650mg PO Q6H for fever Podiatry consult, Dr. Logan - help appreciated - recommending amputation of great toe next 01/03/18 Pre-op labs: EKG (12/28/17): NSR @ 62bpm, 1st degree AV block, prolonged QTc (487 msec), CXR (12/26/17): NAD Coags: INR 1.1, PTT 36 Padilla score: 0.2% risk of MD or cardiac arrest, intraoperatively or up to 30 days post-op Blood culture (12/22/17): No growth x 5 days Prolonged QTc EKG (12/28/17): NSR @ 62bpm, 1st degree AV block, prolonged QTc (487 msec) f/u repeat EKG Sacral abscess Antibiotics as above Wound Care - yola Haro, Gen Surgery - No I&D necessary - Hibclens wash DM Well controlled, A1c: 7.0 -Metformin 500mg BID -Glimepiride 2mg BID -Pioglitazone 500mg BID -ISS -Finger stick ACHS -Hypoglycemia protocol HTN Well controlled -Amlodipine 10mg Prophylactic measures -Lovenox -Protonix -Florastor Disposition: Pt will require long-term ABX. PICC placed and functioning. Cardiac consult placed to Dr. Abdi/Levi group. Dr. Sims will see on 12/30.
--- NOTE | 2017-12-29 17:08 | CP.PCM.PN ---
Subjective - Date & Time of Evaluation Date of Evaluation: 12/29/17 Time of Evaluation: 03:00 - Subjective Subjective: DICTATED Objective - Vital Signs/Intake and Output Vital Signs (last 24 hours): Temp Pulse Resp BP Pulse Ox 98.4 F 70 20 136/70 99 12/29/17 08:51 12/29/17 08:51 12/29/17 08:51 12/29/17 08:51 12/29/17 09:30 Intake and Output: 12/29/17 12/29/17 06:59 18:59 Intake Total 1380 Balance 1380 - Medications Medications: Current Medications Amlodipine Besylate (Norvasc) 10 mg PO DAILY [facility] Last Admin: 12/29/17 09:36 Dose: 10 mg Collagenase (Santyl) 1 gm TOP DAILY [facility] Last Admin: 12/29/17 10:15 Dose: 1 applic Dextrose (Dextrose 50% Inj) 0 ml IVP .STAT PRN; Protocol PRN Reason: Hypoglycemia Protocol Dextrose (Glutose 15) 15 gm PO .ONCE PRN; Protocol PRN Reason: Hypoglycemia Protocol Enoxaparin Sodium (Lovenox) 40 mg SC DAILY [facility] Last Admin: 12/29/17 09:36 Dose: 40 mg Glimepiride (Amaryl) 2 mg PO BID [facility] Last Admin: 12/29/17 09:37 Dose: 2 mg Glucagon (Glucagen Diagnostic Kit) 1 mg IM .STAT PRN; Protocol PRN Reason: Hypoglycemia Protocol Piperacillin Sod/Tazobactam (Sod 3.375 gm/ Sodium Chloride) 100 mls @ 100 mls/ hr IVPB Q8H DIA PRN Reason: Protocol Last Admin: 12/29/17 11:56 Dose: 100 mls/hr Vancomycin HCl 1,200 mg/ (Sodium Chloride) 250 mls @ 166.6 mls/hr IVPB Q12H DIA PRN Reason: Protocol Last Admin: 12/29/17 12:16 Dose: 166.6 mls/hr Insulin Aspart (Novolog) 0 unit SC ACHS [facility] PRN Reason: Protocol Last Admin: 12/29/17 11:53 Dose: 2 unit Metformin HCl (Glucophage) 500 mg PO BID [facility] Last Admin: 12/29/17 09:37 Dose: 500 mg Pantoprazole Sodium (Protonix Ec Tab) 40 mg PO DAILY [facility] Last Admin: 12/29/17 09:37 Dose: 40 mg Pioglitazone HCl (Actos) 15 mg PO BID [facility] Last Admin: 12/29/17 09:37 Dose: 15 mg Saccharomyces Boulardii (Florastor) 250 mg PO BID [facility] Last Admin: 12/29/17 09:36 Dose: 250 mg - Labs Labs: 12/29/17 06:29 12/29/17 06:29 PT 11.9 SECONDS (9.7-12.2) 12/22/17 16:47 INR 1.1 12/22/17 16:47 APTT 36 SECONDS (21-34) H 12/22/17 16:47
--- NOTE | 2017-12-29 17:24 | CP.PCM.PN ---
Subjective - Date & Time of Evaluation Date of Evaluation: 12/29/17 Time of Evaluation: 17:21 - Subjective Subjective: Podiary note for Dr. Logan 62 yo male patient was seen at bedside this [facility] concerning Left foot gangrenous hallux. Patient is resting in bed without acute distress, AAOx3. Dressing to Left foot remains clean dry and intact. Patient understands the need for surgery and agrees with podiatry plan for partial amputation left hallux. Patient denies of any N/V/F/C or SOB today podiatry plan for surgical intervention of Left hallux amputation next Monday01/03/18. Objective - Vital Signs/Intake and Output Vital Signs (last 24 hours): Temp Pulse Resp BP Pulse Ox 98.4 F 70 20 136/70 99 12/29/17 08:51 12/29/17 08:51 12/29/17 08:51 12/29/17 08:51 12/29/17 09:30 Intake and Output: 12/29/17 12/29/17 06:59 18:59 Intake Total 1380 Balance 1380 - Medications Medications: Current Medications Amlodipine Besylate (Norvasc) 10 mg PO DAILY [facility] Last Admin: 12/29/17 09:36 Dose: 10 mg Collagenase (Santyl) 1 gm TOP DAILY [facility] Last Admin: 12/29/17 10:15 Dose: 1 applic Dextrose (Dextrose 50% Inj) 0 ml IVP .STAT PRN; Protocol PRN Reason: Hypoglycemia Protocol Dextrose (Glutose 15) 15 gm PO .ONCE PRN; Protocol PRN Reason: Hypoglycemia Protocol Enoxaparin Sodium (Lovenox) 40 mg SC DAILY [facility] Last Admin: 12/29/17 09:36 Dose: 40 mg Glimepiride (Amaryl) 2 mg PO BID [facility] Last Admin: 12/29/17 09:37 Dose: 2 mg Glucagon (Glucagen Diagnostic Kit) 1 mg IM .STAT PRN; Protocol PRN Reason: Hypoglycemia Protocol Piperacillin Sod/Tazobactam (Sod 3.375 gm/ Sodium Chloride) 100 mls @ 100 mls/ hr IVPB Q8H DIA PRN Reason: Protocol Last Admin: 12/29/17 11:56 Dose: 100 mls/hr Vancomycin HCl 1,200 mg/ (Sodium Chloride) 250 mls @ 166.6 mls/hr IVPB Q12H DIA PRN Reason: Protocol Last Admin: 12/29/17 12:16 Dose: 166.6 mls/hr Insulin Aspart (Novolog) 0 unit SC ACHS [facility] PRN Reason: Protocol Last Admin: 12/29/17 11:53 Dose: 2 unit Metformin HCl (Glucophage) 500 mg PO BID [facility] Last Admin: 12/29/17 09:37 Dose: 500 mg Pantoprazole Sodium (Protonix Ec Tab) 40 mg PO DAILY [facility] Last Admin: 12/29/17 09:37 Dose: 40 mg Pioglitazone HCl (Actos) 15 mg PO BID [facility] Last Admin: 12/29/17 09:37 Dose: 15 mg Saccharomyces Boulardii (Florastor) 250 mg PO BID [facility] Last Admin: 12/29/17 09:36 Dose: 250 mg - Labs Labs: 12/29/17 06:29 12/29/17 06:29 PT 11.9 SECONDS (9.7-12.2) 12/22/17 16:47 INR 1.1 12/22/17 16:47 APTT 36 SECONDS (21-34) H 12/22/17 16:47 - Constitutional Appears: Well, Non-toxic, No Acute Distress - Head Exam Head Exam: ATRAUMATIC - Extremities Exam Additional comments: Left lower extremity exam DERM: Unstageable necrotic eschar noted to distal aspect of Left hallux. Dry eschar measures 3cm x 2cm. No purulent drainage is noted. Mild odor is noted. Mild erythema noted around the eschar. VASC: Nonpalpable DP, PT noted to Left foot. Palpable DP and PT noted to Right foot NEURO: Gross sensation intact - Neurological Exam Neurological Exam: Alert, Awake, Oriented x3 - Psychiatric Exam Psychiatric exam: Normal Affect, Normal Mood - Skin Skin Exam: Normal Color, Warm Assessment and Plan - Assessment and Plan (Free Text) Assessment: 62 yo male patient presenting with Left gangrenous hallux Plan: Patient was seen, evaluated at bedside Labs and vitals reviewed; WBC 6.1 MRI reveals evidence of OM to distal phalanx of Left hallux Left foot dressed with Betadine Soaked DSD Podiatry will continue to follow in-house Podiatry plan for Left hallux amputation next Monday01/03/18 Requesting medical clearance from Medicine team. Thank you.
--- NOTE | 2017-12-29 22:34 | PN ---
DATE: SUBJECTIVE: The patient is afebrile. He has been getting treatment to his left foot. He denies any complaints. Still has a small abscess on the sacral area, but he is feeling better. PHYSICAL EXAMINATION: VITAL SIGNS: T-max is 98.4, pulse 70, blood pressure 136/70, respirations are 20. HEENT: Head is atraumatic, normocephalic. NECK: Supple. LUNGS: Clear. HEART: S1, S2 are regular. ABDOMEN: Soft, nontender. No guarding. No rigidity. EXTREMITIES: The patient's foot remains with a dressing at this time. Right foot is unremarkable. ASSESSMENT AND PLAN: He is waiting for the cardiac clearance for surgery, also from Dr. Logan and they did the dressing. He is on antibiotics at this time and we will continue the same and will follow. I will be away until 01/05/2018, so I am going to endorse this patient to Dr. Emery. The patient is on of vancomycin and Zosyn at this time and has a necrotic osteomyelitis of the left great toe and may undergo surgery by Dr. Logan, pending clearance. Tiffany Blancas MD
[2017-12-30] MEDS: Piperacillin/Tazobact 3.375 GM in Sodium Chloride 0.9% 100 ML IVPB SCH ×3 (03:53→21:45)
[2017-12-30 07:34] LABS: BASO % 0.5 % (0.0-2.0); EOS # 0.6 K/uL (0.0-0.7); EOS % 9.3 % (0.0-4.0); HEMOGLOBIN 12.6 g/dL (12.0-18.0); LYMPH # 1.5 K/uL (1.0-4.3); LYMPH % 22.3 % (20.0-40.0); MEAN CELL VOLUME 87.6 fL (80.0-94.0); MEAN CORPUSCULAR HEMOGLOBIN 30.8 pg (27.0-31.0); MEAN CORPUSCULAR HGB CONC 35.1 g/dL (33.0-37.0); MEAN PLATELET VOLUME 6.5 fL (7.2-11.7); MONO # 0.7 K/uL (0.0-0.8); NEUT % 57.9 % (50.0-75.0); NRBC % 0.1 % (0.0-2.0); RBC 4.09 Mil/uL (4.40-5.90); RED CELL DISTRIBUTION WIDTH 14.3 % (11.5-14.5); WHITE BLOOD COUNT 6.9 K/uL (4.8-10.8)
[2017-12-30 07:43] LABS: ALB/GLOB RATIO 1.2 (1.0-2.1); ALBUMIN 4.2 g/dL (3.5-5.0); ALT/SGPT 16 U/L (21-72); AST/SGOT 28 U/L (17-59); BLOOD UREA NITROGEN 8 mg/dL (9-20); CALCIUM 9.2 mg/dl (8.6-10.4); GFR AFRICAN-AMERICAN > 60; GFR NON-AFRICAN AMERICAN > 60
[2017-12-30] MEDS: (Novolog) Insulin Aspart, Recombinant 100 u/ml 10 ml vial SC SCH ×4 (07:45→21:51)
[2017-12-30] MEDS: Pantoprazole 40 mg EC Tab PO SCH (10:27)
[2017-12-30] MEDS: Collagenase 250 Units/gm Ointment(30 gm) TOP SCH (10:28)
[2017-12-30] MEDS: Saccharomyces Boulardi 250 mg Cap PO SCH ×2 (10:28→17:46)
[2017-12-30] MEDS: Enoxaparin 40 mg Syringe SC SCH (10:55)
--- NOTE | 2017-12-30 12:06 | CP.PCM.PN ---
Subjective - Date & Time of Evaluation Date of Evaluation: 12/30/17 Time of Evaluation: 07:20 - Subjective Subjective: clinically same Objective - Vital Signs/Intake and Output Vital Signs (last 24 hours): Temp Pulse Resp BP Pulse Ox 97.6 F 60 20 146/67 97 12/30/17 08:09 12/30/17 08:09 12/30/17 08:09 12/30/17 08:09 12/30/17 08:09 Intake and Output: 12/30/17 12/30/17 06:59 18:59 Intake Total 1710 Output Total 0 Balance 1710 - Medications Medications: Current Medications Acetaminophen (Tylenol 325mg Tab) 650 mg PO Q6 PRN PRN Reason: Fever >100.4 F Amlodipine Besylate (Norvasc) 10 mg PO DAILY [facility] Last Admin: 12/30/17 10:28 Dose: 10 mg Collagenase (Santyl) 1 gm TOP DAILY [facility] Last Admin: 12/30/17 10:28 Dose: 1 applic Dextrose (Dextrose 50% Inj) 0 ml IVP .STAT PRN; Protocol PRN Reason: Hypoglycemia Protocol Dextrose (Glutose 15) 15 gm PO .ONCE PRN; Protocol PRN Reason: Hypoglycemia Protocol Glimepiride (Amaryl) 2 mg PO BID [facility] Last Admin: 12/30/17 10:27 Dose: 2 mg Glucagon (Glucagen Diagnostic Kit) 1 mg IM .STAT PRN; Protocol PRN Reason: Hypoglycemia Protocol Piperacillin Sod/Tazobactam (Sod 3.375 gm/ Sodium Chloride) 100 mls @ 100 mls/ hr IVPB Q8H [facility] PRN Reason: Protocol Last Admin: 12/30/17 03:53 Dose: 100 mls/hr Vancomycin HCl 1,200 mg/ (Sodium Chloride) 250 mls @ 166.6 mls/hr IVPB Q12H [facility] PRN Reason: Protocol Last Admin: 12/30/17 11:02 Dose: 166.6 mls/hr Insulin Aspart (Novolog) 0 unit SC ACHS [facility] PRN Reason: Protocol Last Admin: 12/30/17 11:21 Dose: 2 unit Metformin HCl (Glucophage) 500 mg PO BID [facility] Last Admin: 12/30/17 10:27 Dose: 500 mg Pantoprazole Sodium (Protonix Ec Tab) 40 mg PO DAILY [facility] Last Admin: 12/30/17 10:27 Dose: 40 mg Pioglitazone HCl (Actos) 15 mg PO BID [facility] Last Admin: 12/30/17 10:26 Dose: 15 mg Saccharomyces Boulardii (Florastor) 250 mg PO BID [facility] Last Admin: 12/30/17 10:28 Dose: 250 mg - Labs Labs: 12/30/17 07:12 12/30/17 07:12 PT 11.9 SECONDS (9.7-12.2) 12/22/17 16:47 INR 1.1 12/22/17 16:47 APTT 36 SECONDS (21-34) H 12/22/17 16:47 - Constitutional Appears: Well - Head Exam Head Exam: ATRAUMATIC, NORMAL INSPECTION, NORMOCEPHALIC - Eye Exam Eye Exam: EOMI, Normal appearance, PERRL Pupil Exam: NORMAL ACCOMODATION, PERRL - ENT Exam ENT Exam: Mucous Membranes Moist, Normal Exam - Neck Exam Neck Exam: Full ROM, Normal Inspection. absent: Lymphadenopathy - Respiratory Exam Respiratory Exam: Decreased Breath Sounds - Cardiovascular Exam Cardiovascular Exam: REGULAR RHYTHM, +S1, +S2 - GI/Abdominal Exam GI & Abdominal Exam: Soft, Diminished Bowel Sounds - Rectal Exam Rectal Exam: Deferred Assessment and Plan - Assessment and Plan (Free Text) Plan: seen by Aspirin on hold Continue Zosyn and vancomycin Continue with the bariatric consultations Patient will be cleared by Dr. Koenig EKG As ordered
--- NOTE | 2017-12-30 14:24 | CP.PCM.CON ---
History of Present Illness - History of Present Illness History of Present Illness: 62 year old man with following chronic medical problems 1. HTN 2. DM uncontrolled 3. Dyslipid chronic and stable Called by primary service for CLI. Patient is schedule for amputation of the left great toe which now has osteomyelitis. Review of Systems - Review of Systems All systems: reviewed and no additional remarkable complaints except Past Patient History - Past Social History Smoking Status: Never Smoked - CARDIAC Hx Hypercholesterolemia: Yes Hx Hypertension: Yes - ENDOCRINE/METABOLIC Hx Endocrine Disorders: Yes Hx Diabetes Mellitus Type 2: Yes - MUSCULOSKELETAL/RHEUMATOLOGICAL Hx Falls: No - PSYCHIATRIC Hx Substance Use: No - SURGICAL HISTORY Hx Surgeries: Yes Hx Eye Surgery: Yes - ANESTHESIA Hx Anesthesia: Yes Meds Home Medications: Home Medication List Medication Instructions Recorded Confirmed Type Collagenase [Santyl] 1 gm TOP DAILY tube 12/28/17 Rx Saccharomyces Boulardi [Florastor] 250 mg PO BID cap 12/28/17 Rx Vancomycin [Vancomycin Inj] 1,200 mg IVPB Q12H vial 12/28/17 Rx amLODIPine [Norvasc] 10 mg PO DAILY tab 12/28/17 Rx Piperacillin/Tazobact 3.375 gm 3.375 gm IVPB Q6 6 Days #24 bag 01/04/18 Rx [Zosyn 3.375 in NS 100ml] Vancomycin 1 GM [Vancomycin 1GM in 1.2 gm IVPB Q12 6 Days bag 01/04/18 Rx Normal Saline Addvantage] Allergies/Adverse Reactions: Allergies Allergy/AdvReac Type Severity Reaction Status Date / Time No Known Allergies Allergy Verified 12/22/17 15:47 - Medications Medications: Current Medications Acetaminophen (Tylenol 325mg Tab) 650 mg PO Q6 PRN PRN Reason: Fever >100.4 F Amlodipine Besylate (Norvasc) 10 mg PO DAILY [facility] Last Admin: 12/30/17 10:28 Dose: 10 mg Collagenase (Santyl) 1 gm TOP DAILY [facility] Last Admin: 12/30/17 10:28 Dose: 1 applic Dextrose (Dextrose 50% Inj) 0 ml IVP .STAT PRN; Protocol PRN Reason: Hypoglycemia Protocol Dextrose (Glutose 15) 15 gm PO .ONCE PRN; Protocol PRN Reason: Hypoglycemia Protocol Glimepiride (Amaryl) 2 mg PO BID [facility] Last Admin: 12/30/17 10:27 Dose: 2 mg Glucagon (Glucagen Diagnostic Kit) 1 mg IM .STAT PRN; Protocol PRN Reason: Hypoglycemia Protocol Piperacillin Sod/Tazobactam (Sod 3.375 gm/ Sodium Chloride) 100 mls @ 100 mls/ hr IVPB Q8H [facility] PRN Reason: Protocol Last Admin: 12/30/17 13:09 Dose: 100 mls/hr Vancomycin HCl 1,200 mg/ (Sodium Chloride) 250 mls @ 166.6 mls/hr IVPB Q12H [facility] PRN Reason: Protocol Last Admin: 12/30/17 11:02 Dose: 166.6 mls/hr Insulin Aspart (Novolog) 0 unit SC ACHS [facility] PRN Reason: Protocol Last Admin: 12/30/17 11:21 Dose: 2 unit Metformin HCl (Glucophage) 500 mg PO BID [facility] Last Admin: 12/30/17 10:27 Dose: 500 mg Pantoprazole Sodium (Protonix Ec Tab) 40 mg PO DAILY [facility] Last Admin: 12/30/17 10:27 Dose: 40 mg Pioglitazone HCl (Actos) 15 mg PO BID [facility] Last Admin: 12/30/17 10:26 Dose: 15 mg Saccharomyces Boulardii (Florastor) 250 mg PO BID [facility] Last Admin: 12/30/17 10:28 Dose: 250 mg Physical Exam - Constitutional Appears: Well, Non-toxic - Head Exam Head Exam: ATRAUMATIC, NORMAL INSPECTION - Eye Exam Eye Exam: PERRL. absent: Scleral icterus - ENT Exam ENT Exam: Mucous Membranes Moist, Normal External Ear Exam - Neck Exam Neck exam: Positive for: Full Rom. Negative for: Lymphadenopathy - Respiratory Exam Respiratory Exam: Clear to Auscultation Bilateral, NORMAL BREATHING PATTERN - Cardiovascular Exam Cardiovascular Exam: REGULAR RHYTHM, RRR, +S1, +S2. absent: JVD Additional comments: Left toe gangrene, Trace DP pulses, 1+ PT pulse in left foot - GI/Abdominal Exam GI & Abdominal Exam: Normal Bowel Sounds. absent: Organomegaly - Extremities Exam Extremities exam: Negative for: calf tenderness, pedal edema - Neurological Exam Neurological exam: CN II-XII Intact, Oriented x3 - Psychiatric Exam Psychiatric exam: Normal Affect, Normal Mood Results - Vital Signs Recent Vital Signs: Last Vital Signs Temp 97.6 F 12/30/17 08:09 Pulse 60 12/30/17 08:09 Resp 20 12/30/17 08:09 BP 146/67 12/30/17 08:09 Pulse Ox 97 12/30/17 08:09 - Labs Result Diagrams: 01/04/18 07:48 01/04/18 07:48 Labs: Laboratory Results - last 24 hr 12/29/17 12/29/17 12/30/17 16:41 21:29 07:12 WBC 6.9 RBC 4.09 L Hgb 12.6 Hct 35.9 MCV 87.6 MCH 30.8 MCHC 35.1 RDW 14.3 Plt Count 414 H MPV 6.5 L Neut % (Auto) 57.9 Lymph % (Auto) 22.3 Coffee % (Auto) 10.0 Eos % (Auto) 9.3 H Baso % (Auto) 0.5 Neut # (Auto) 4.0 Lymph # (Auto) 1.5 Coffee # (Auto) 0.7 Eos # (Auto) 0.6 Baso # (Auto) 0.0 Sodium Potassium Chloride Carbon Dioxide Anion Gap BUN Creatinine Est GFR ( Amer) Est GFR (Non-Af Amer) POC Glucose (mg/dL) 163 H 186 H Random Glucose Calcium Total Bilirubin AST ALT Alkaline Phosphatase Total Protein Albumin Globulin Albumin/Globulin Ratio 12/30/17 12/30/17 12/30/17 07:12 07:21 11:04 WBC RBC Hgb Hct MCV MCH MCHC RDW Plt Count MPV Neut % (Auto) Lymph % (Auto) Coffee % (Auto) Eos % (Auto) Baso % (Auto) Neut # (Auto) Lymph # (Auto) Coffee # (Auto) Eos # (Auto) Baso # (Auto) Sodium 143 Potassium 3.7 Chloride 107 Carbon Dioxide 27 Anion Gap 14 BUN 8 L Creatinine 0.9 Est GFR ( Amer) > 60 Est GFR (Non-Af Amer) > 60 POC Glucose (mg/dL) 115 H 228 H Random Glucose 113 H Calcium 9.2 Total Bilirubin 0.5 AST 28 ALT 16 L Alkaline Phosphatase 38 Total Protein 7.7 Albumin 4.2 Globulin 3.5 Albumin/Globulin Ratio 1.2 - EKG Data EKG Interpreted by: Myself - Imaging and Cardiology Chest x-ray Status: Image reviewed by me (No infiltrates or effusions) Assessment & Plan - Assessment and Plan (Free Text) Assessment: 62 year old man with CLI with osteomyelitis ABX, non revascularizable PVD. Scheduled for amputation. Check EKG. PATIENT IS ACCEPTABLE RISK FOR URGENT SURGERY. HE IS ABLE TO PERFORM >4 METS AT BASELINE. IF EKG IS NORMAL HE DOES NOT REQUIRE ANY FURTHER CARDIAC WORK UP. HTN is chronic and stable on amlodipine DM is chronic and stable on insulin ASHD add high dose statin, add antiplatelet.
--- NOTE | 2017-12-30 14:36 | CP.PCM.PN ---
Subjective - Date & Time of Evaluation Date of Evaluation: 12/30/17 Time of Evaluation: 12:00 - Subjective Subjective: Podiatry progress note for Dr. Logan 62 yo male patient was seen at bedside for left foot gangrenous hallux. Patient is seen resting comfortably in bed, in NAD, and AA0x3. Patient reports mild pain to the left foot. Dressing is clean, dry, and intact. Patient understands the need for surgery and agrees with podiatry plan for partial amputation left hallux. Patient denies of any N/V/F/C or SOB today. No new pedal complaints Objective - Vital Signs/Intake and Output Vital Signs (last 24 hours): Temp Pulse Resp BP Pulse Ox 97.6 F 60 20 146/67 97 12/30/17 08:09 12/30/17 08:09 12/30/17 08:09 12/30/17 08:09 12/30/17 08:09 Intake and Output: 12/30/17 12/30/17 06:59 18:59 Intake Total 1710 Output Total 0 Balance 1710 - Medications Medications: Current Medications Acetaminophen (Tylenol 325mg Tab) 650 mg PO Q6 PRN PRN Reason: Fever >100.4 F Amlodipine Besylate (Norvasc) 10 mg PO DAILY [facility] Last Admin: 12/30/17 10:28 Dose: 10 mg Collagenase (Santyl) 1 gm TOP DAILY [facility] Last Admin: 12/30/17 10:28 Dose: 1 applic Dextrose (Dextrose 50% Inj) 0 ml IVP .STAT PRN; Protocol PRN Reason: Hypoglycemia Protocol Dextrose (Glutose 15) 15 gm PO .ONCE PRN; Protocol PRN Reason: Hypoglycemia Protocol Glimepiride (Amaryl) 2 mg PO BID [facility] Last Admin: 12/30/17 10:27 Dose: 2 mg Glucagon (Glucagen Diagnostic Kit) 1 mg IM .STAT PRN; Protocol PRN Reason: Hypoglycemia Protocol Piperacillin Sod/Tazobactam (Sod 3.375 gm/ Sodium Chloride) 100 mls @ 100 mls/ hr IVPB Q8H [facility] PRN Reason: Protocol Last Admin: 12/30/17 13:09 Dose: 100 mls/hr Vancomycin HCl 1,200 mg/ (Sodium Chloride) 250 mls @ 166.6 mls/hr IVPB Q12H [facility] PRN Reason: Protocol Last Admin: 12/30/17 11:02 Dose: 166.6 mls/hr Insulin Aspart (Novolog) 0 unit SC ACHS [facility] PRN Reason: Protocol Last Admin: 12/30/17 11:21 Dose: 2 unit Metformin HCl (Glucophage) 500 mg PO BID [facility] Last Admin: 12/30/17 10:27 Dose: 500 mg Pantoprazole Sodium (Protonix Ec Tab) 40 mg PO DAILY [facility] Last Admin: 12/30/17 10:27 Dose: 40 mg Pioglitazone HCl (Actos) 15 mg PO BID [facility] Last Admin: 12/30/17 10:26 Dose: 15 mg Saccharomyces Boulardii (Florastor) 250 mg PO BID [facility] Last Admin: 12/30/17 10:28 Dose: 250 mg - Labs Labs: 12/30/17 07:12 12/30/17 07:12 PT 11.9 SECONDS (9.7-12.2) 12/22/17 16:47 INR 1.1 12/22/17 16:47 APTT 36 SECONDS (21-34) H 12/22/17 16:47 - Constitutional Appears: Well, Non-toxic, No Acute Distress - Extremities Exam Extremities Exam: absent: Calf Tenderness Additional comments: Left lower extremity exam DERM: Unstageable necrotic eschar noted to distal aspect of Left hallux. Dry eschar measures 3cm x 2cm. No purulent drainage is noted. Mild odor is noted. Mild erythema noted around the eschar. VASC: Nonpalpable DP, PT noted to Left foot. Palpable DP and PT noted to Right foot NEURO: Gross sensation intact - Psychiatric Exam Psychiatric exam: Normal Affect, Normal Mood Assessment and Plan - Assessment and Plan (Free Text) Assessment: 62 yo male patient presenting with Left gangrenous hallux Plan: Patient was seen, evaluated at bedside Labs and vitals reviewed; WBC 6.9 MRI reveals evidence of OM to distal phalanx of Left hallux Left foot dressed with Betadine Soaked DSD Podiatry will continue to follow in-house Podiatry plan for Left hallux amputation next Monday01/03/18 Requesting medical clearance from Medicine team. Thank you. Awaiting for cardiology clearance. Thank you
[2017-12-31] MEDS: Piperacillin/Tazobact 3.375 GM in Sodium Chloride 0.9% 100 ML IVPB SCH ×2 (05:09→12:26)
[2017-12-31] MEDS: (Novolog) Insulin Aspart, Recombinant 100 u/ml 10 ml vial SC SCH ×4 (08:02→22:15)
[2017-12-31] MEDS: Collagenase 250 Units/gm Ointment(30 gm) TOP SCH (10:11)
[2017-12-31] MEDS: Saccharomyces Boulardi 250 mg Cap PO SCH ×2 (10:12→17:46)
[2017-12-31] MEDS: Pantoprazole 40 mg EC Tab PO SCH (10:12)
--- NOTE | 2017-12-31 12:01 | CP.PCM.PN ---
Subjective - Date & Time of Evaluation Date of Evaluation: 12/31/17 Time of Evaluation: 07:00 - Subjective Subjective: Podiatry progress note for Dr. Logan 62 yo male patient was seen at bedside for left foot gangrenous hallux. Patient is seen ambulating without issues to bed from bathroom. Patient appears to be in bed, in NAD, and AA0x3. Patient reports mild pain to the left foot. Dressing is clean, dry, and intact. Patient denies of any N/V/F/C or SOB today. No new pedal complaints Objective - Vital Signs/Intake and Output Vital Signs (last 24 hours): Temp Pulse Resp BP Pulse Ox 98.2 F 61 20 117/63 97 12/31/17 08:00 12/31/17 08:00 12/31/17 08:00 12/31/17 08:00 12/31/17 08:00 Intake and Output: 12/31/17 12/31/17 06:59 18:59 Intake Total 550 Balance 550 - Medications Medications: Current Medications Acetaminophen (Tylenol 325mg Tab) 650 mg PO Q6 PRN PRN Reason: Fever >100.4 F Amlodipine Besylate (Norvasc) 10 mg PO DAILY [facility] Last Admin: 12/31/17 10:12 Dose: 10 mg Collagenase (Santyl) 1 gm TOP DAILY [facility] Last Admin: 12/31/17 10:11 Dose: 1 applic Dextrose (Dextrose 50% Inj) 0 ml IVP .STAT PRN; Protocol PRN Reason: Hypoglycemia Protocol Dextrose (Glutose 15) 15 gm PO .ONCE PRN; Protocol PRN Reason: Hypoglycemia Protocol Glimepiride (Amaryl) 2 mg PO BID [facility] Last Admin: 12/31/17 10:12 Dose: 2 mg Glucagon (Glucagen Diagnostic Kit) 1 mg IM .STAT PRN; Protocol PRN Reason: Hypoglycemia Protocol Piperacillin Sod/Tazobactam (Sod 3.375 gm/ Sodium Chloride) 100 mls @ 100 mls/ hr IVPB Q8H [facility] PRN Reason: Protocol Last Admin: 12/31/17 05:09 Dose: 100 mls/hr Vancomycin HCl 1,200 mg/ (Sodium Chloride) 250 mls @ 166.6 mls/hr IVPB Q12H [facility] PRN Reason: Protocol Last Admin: 12/30/17 23:54 Dose: 166.6 mls/hr Insulin Aspart (Novolog) 0 unit SC ACHS [facility] PRN Reason: Protocol Last Admin: 12/31/17 08:02 Dose: Not Given Metformin HCl (Glucophage) 500 mg PO BID [facility] Last Admin: 12/31/17 10:12 Dose: 500 mg Pantoprazole Sodium (Protonix Ec Tab) 40 mg PO DAILY [facility] Last Admin: 12/31/17 10:12 Dose: 40 mg Pioglitazone HCl (Actos) 15 mg PO BID [facility] Last Admin: 12/31/17 10:10 Dose: 15 mg Saccharomyces Boulardii (Florastor) 250 mg PO BID [facility] Last Admin: 12/31/17 10:12 Dose: 250 mg - Labs Labs: 12/30/17 07:12 12/30/17 07:12 PT 11.9 SECONDS (9.7-12.2) 12/22/17 16:47 INR 1.1 12/22/17 16:47 APTT 36 SECONDS (21-34) H 12/22/17 16:47 - Constitutional Appears: Well, Non-toxic, No Acute Distress - Extremities Exam Extremities Exam: absent: Calf Tenderness Additional comments: Left lower extremity exam DERM: Unstageable necrotic eschar noted to distal aspect of Left hallux. Dry eschar measures 3cm x 2cm. Mild odor is noted. Mild erythema noted around the eschar. No streaking, no abscess VASC: Nonpalpable DP, PT noted to Left foot. Palpable DP and PT noted to Right foot NEURO: Gross sensation intact, protective sensation diminished ORTHO: pain with palpation to eschar left hallux - Neurological Exam Neurological Exam: Alert, Awake, Oriented x3 - Psychiatric Exam Psychiatric exam: Normal Affect, Normal Mood Assessment and Plan - Assessment and Plan (Free Text) Assessment: 62 yo male patient presenting with Left gangrenous hallux Plan: Patient was seen, evaluated at bedside Discussed plan in detail with attending Dr. Logan Labs and vitals reviewed MRI reveals evidence of OM to distal phalanx of Left hallux Left foot dressed with Betadine Soaked DSD Podiatry will continue to follow in-house Podiatry plan for Left hallux amputation next Monday01/03/18 Medical clearance obtained Cardiac clearance obtained Thank you
--- NOTE | 2017-12-31 18:04 | CP.PCM.PN ---
Subjective - Date & Time of Evaluation Date of Evaluation: 12/31/17 Time of Evaluation: 07:00 - Subjective Subjective: clinically same Objective - Vital Signs/Intake and Output Vital Signs (last 24 hours): Temp Pulse Resp BP Pulse Ox 98.1 F 58 L 20 127/60 98 12/31/17 16:00 12/31/17 16:00 12/31/17 16:00 12/31/17 16:00 12/31/17 16:00 Intake and Output: 12/31/17 12/31/17 06:59 18:59 Intake Total 550 950 Balance 550 950 - Medications Medications: Current Medications Acetaminophen (Tylenol 325mg Tab) 650 mg PO Q6 PRN PRN Reason: Fever >100.4 F Amlodipine Besylate (Norvasc) 10 mg PO DAILY [facility] Last Admin: 12/31/17 10:12 Dose: 10 mg Collagenase (Santyl) 1 gm TOP DAILY [facility] Last Admin: 12/31/17 10:11 Dose: 1 applic Dextrose (Dextrose 50% Inj) 0 ml IVP .STAT PRN; Protocol PRN Reason: Hypoglycemia Protocol Dextrose (Glutose 15) 15 gm PO .ONCE PRN; Protocol PRN Reason: Hypoglycemia Protocol Glimepiride (Amaryl) 2 mg PO BID [facility] Last Admin: 12/31/17 17:45 Dose: 2 mg Glucagon (Glucagen Diagnostic Kit) 1 mg IM .STAT PRN; Protocol PRN Reason: Hypoglycemia Protocol Vancomycin HCl 1,200 mg/ (Sodium Chloride) 250 mls @ 166.6 mls/hr IVPB Q12H [facility] PRN Reason: Protocol Last Admin: 12/31/17 12:26 Dose: 166.6 mls/hr Insulin Aspart (Novolog) 0 unit SC ACHS [facility] PRN Reason: Protocol Last Admin: 12/31/17 16:40 Dose: Not Given Metformin HCl (Glucophage) 500 mg PO BID [facility] Last Admin: 12/31/17 17:46 Dose: 500 mg Pantoprazole Sodium (Protonix Ec Tab) 40 mg PO DAILY [facility] Last Admin: 12/31/17 10:12 Dose: 40 mg Pioglitazone HCl (Actos) 15 mg PO BID [facility] Last Admin: 12/31/17 17:46 Dose: 15 mg Saccharomyces Boulardii (Florastor) 250 mg PO BID [facility] Last Admin: 12/31/17 17:46 Dose: 250 mg - Labs Labs: 12/30/17 07:12 12/30/17 07:12 PT 11.9 SECONDS (9.7-12.2) 12/22/17 16:47 INR 1.1 12/22/17 16:47 APTT 36 SECONDS (21-34) H 12/22/17 16:47 - Constitutional Appears: Well - Head Exam Head Exam: ATRAUMATIC, NORMAL INSPECTION, NORMOCEPHALIC - Eye Exam Eye Exam: EOMI, Normal appearance, PERRL Pupil Exam: NORMAL ACCOMODATION, PERRL - ENT Exam ENT Exam: Mucous Membranes Moist, Normal Exam - Neck Exam Neck Exam: Full ROM, Normal Inspection. absent: Lymphadenopathy - Respiratory Exam Respiratory Exam: Decreased Breath Sounds - Cardiovascular Exam Cardiovascular Exam: REGULAR RHYTHM, +S1, +S2 - GI/Abdominal Exam GI & Abdominal Exam: Soft, Diminished Bowel Sounds - Rectal Exam Rectal Exam: Deferred Assessment and Plan - Assessment and Plan (Free Text) Plan: followupiwth podaitry iv antibitoc cardio cleranace s/p ekg resutls reviewed-- discusse diht family pt made wre possible for surg
[2018-01-01] MEDS: Piperacill/Tazo 3.375gm in Dex 3.375 GM/50 ML BAG IVPB SCH ×4 (05:25→18:16)
[2018-01-01] MEDS: (Novolog) Insulin Aspart, Recombinant 100 u/ml 10 ml vial SC SCH ×4 (07:48→21:45)
[2018-01-01] MEDS: Collagenase 250 Units/gm Ointment(30 gm) TOP SCH (10:36)
[2018-01-01] MEDS: Pantoprazole 40 mg EC Tab PO SCH (10:36)
[2018-01-01] MEDS: Saccharomyces Boulardi 250 mg Cap PO SCH ×2 (10:36→18:14)
--- NOTE | 2018-01-01 12:36 | CP.PCM.PN ---
Subjective - Date & Time of Evaluation Date of Evaluation: 01/01/18 Time of Evaluation: 10:30 - Subjective Subjective: Podiatry progress note for Dr. Logan 62 yo male patient was seen at bedside for left foot gangrenous hallux. Patient is seen resting comfortably in bed, in NAD, and AA0x3. Denies acute overnight events. Patient reports the same mild pain to the left foot. Dressing is clean, dry, and intact. Patient denies of any N/V/F/C or SOB today. No new pedal complaints Objective - Vital Signs/Intake and Output Vital Signs (last 24 hours): Temp Pulse Resp BP Pulse Ox 98.2 F 58 L 20 113/71 97 01/01/18 08:11 01/01/18 08:11 01/01/18 08:11 01/01/18 08:11 01/01/18 08:11 Intake and Output: 01/01/18 01/01/18 06:59 18:59 Intake Total 850 Balance 850 - Medications Medications: Current Medications Acetaminophen (Tylenol 325mg Tab) 650 mg PO Q6 PRN PRN Reason: Fever >100.4 F Amlodipine Besylate (Norvasc) 10 mg PO DAILY [facility] Last Admin: 01/01/18 10:37 Dose: 10 mg Collagenase (Santyl) 1 gm TOP DAILY [facility] Last Admin: 01/01/18 10:36 Dose: 1 applic Dextrose (Dextrose 50% Inj) 0 ml IVP .STAT PRN; Protocol PRN Reason: Hypoglycemia Protocol Dextrose (Glutose 15) 15 gm PO .ONCE PRN; Protocol PRN Reason: Hypoglycemia Protocol Glimepiride (Amaryl) 2 mg PO BID [facility] Last Admin: 01/01/18 10:37 Dose: 2 mg Glucagon (Glucagen Diagnostic Kit) 1 mg IM .STAT PRN; Protocol PRN Reason: Hypoglycemia Protocol Vancomycin HCl 1,200 mg/ (Sodium Chloride) 250 mls @ 166.6 mls/hr IVPB Q12H [facility] PRN Reason: Protocol Last Admin: 01/01/18 11:53 Dose: 166.6 mls/hr Piperacillin Sod/Tazobactam Sod (Zosyn 3.375 Gm Iv Premix) 3.375 gm in 50 mls @ 100 mls/hr IVPB Q6H [facility] PRN Reason: Protocol Last Admin: 01/01/18 11:52 Dose: 100 mls/hr Insulin Aspart (Novolog) 0 unit SC ACHS [facility] PRN Reason: Protocol Last Admin: 01/01/18 12:06 Dose: 3 unit Metformin HCl (Glucophage) 500 mg PO BID [facility] Last Admin: 01/01/18 10:37 Dose: 500 mg Pantoprazole Sodium (Protonix Ec Tab) 40 mg PO DAILY [facility] Last Admin: 01/01/18 10:36 Dose: 40 mg Pioglitazone HCl (Actos) 15 mg PO BID [facility] Last Admin: 01/01/18 10:36 Dose: 15 mg Saccharomyces Boulardii (Florastor) 250 mg PO BID [facility] Last Admin: 01/01/18 10:36 Dose: 250 mg - Labs Labs: 12/30/17 07:12 12/30/17 07:12 PT 11.9 SECONDS (9.7-12.2) 12/22/17 16:47 INR 1.1 12/22/17 16:47 APTT 36 SECONDS (21-34) H 12/22/17 16:47 - Constitutional Appears: Well, Non-toxic, No Acute Distress - Extremities Exam Extremities Exam: absent: Calf Tenderness Additional comments: Left lower extremity exam DERM: Unstageable necrotic eschar noted to distal aspect of Left hallux. Dry eschar measures 3cm x 2cm. Eschar lifted laterally, able to express 1cc of purulent drainage from eschar. Mild odor is noted. Mild erythema noted around the eschar. No streaking, no tunneling, no undermining appreciated. VASC: Nonpalpable DP, PT noted to Left foot. Palpable DP and PT noted to Right foot NEURO: Gross sensation intact - Neurological Exam Neurological Exam: Alert, Awake, Oriented x3 - Psychiatric Exam Psychiatric exam: Normal Affect, Normal Mood Assessment and Plan - Assessment and Plan (Free Text) Assessment: 62 yo male patient presenting with Left gangrenous hallux Plan: Patient was seen, evaluated at bedside Labs and vitals reviewed; WBC 6.9 on 12/30/17 MRI reveals evidence of OM to distal phalanx of Left hallux Left foot dressed with Betadine Soaked DSD Podiatry will continue to follow in-house Podiatry plan for Left hallux amputation next Monday01/03/18 Requesting medical clearance from Medicine team. Thank you. Awaiting for cardiology clearance. Thank you
--- NOTE | 2018-01-01 13:25 | CP.PCM.PN ---
Subjective - Date & Time of Evaluation Date of Evaluation: 01/01/18 Time of Evaluation: 07:00 - Subjective Subjective: clinically same Objective - Vital Signs/Intake and Output Vital Signs (last 24 hours): Temp Pulse Resp BP Pulse Ox 98.2 F 58 L 20 113/71 97 01/01/18 08:11 01/01/18 08:11 01/01/18 08:11 01/01/18 08:11 01/01/18 08:11 Intake and Output: 01/01/18 01/01/18 06:59 18:59 Intake Total 850 Balance 850 - Medications Medications: Current Medications Acetaminophen (Tylenol 325mg Tab) 650 mg PO Q6 PRN PRN Reason: Fever >100.4 F Amlodipine Besylate (Norvasc) 10 mg PO DAILY [facility] Last Admin: 01/01/18 10:37 Dose: 10 mg Collagenase (Santyl) 1 gm TOP DAILY [facility] Last Admin: 01/01/18 10:36 Dose: 1 applic Dextrose (Dextrose 50% Inj) 0 ml IVP .STAT PRN; Protocol PRN Reason: Hypoglycemia Protocol Dextrose (Glutose 15) 15 gm PO .ONCE PRN; Protocol PRN Reason: Hypoglycemia Protocol Glimepiride (Amaryl) 2 mg PO BID [facility] Last Admin: 01/01/18 10:37 Dose: 2 mg Glucagon (Glucagen Diagnostic Kit) 1 mg IM .STAT PRN; Protocol PRN Reason: Hypoglycemia Protocol Vancomycin HCl 1,200 mg/ (Sodium Chloride) 250 mls @ 166.6 mls/hr IVPB Q12H DIA PRN Reason: Protocol Last Admin: 01/01/18 11:53 Dose: 166.6 mls/hr Piperacillin Sod/Tazobactam Sod (Zosyn 3.375 Gm Iv Premix) 3.375 gm in 50 mls @ 100 mls/hr IVPB Q6H DIA PRN Reason: Protocol Last Admin: 01/01/18 11:52 Dose: 100 mls/hr Insulin Aspart (Novolog) 0 unit SC ACHS DIA PRN Reason: Protocol Last Admin: 01/01/18 12:06 Dose: 3 unit Metformin HCl (Glucophage) 500 mg PO BID [facility] Last Admin: 01/01/18 10:37 Dose: 500 mg Pantoprazole Sodium (Protonix Ec Tab) 40 mg PO DAILY [facility] Last Admin: 01/01/18 10:36 Dose: 40 mg Pioglitazone HCl (Actos) 15 mg PO BID [facility] Last Admin: 01/01/18 10:36 Dose: 15 mg Saccharomyces Boulardii (Florastor) 250 mg PO BID [facility] Last Admin: 01/01/18 10:36 Dose: 250 mg - Labs Labs: 12/30/17 07:12 12/30/17 07:12 PT 11.9 SECONDS (9.7-12.2) 12/22/17 16:47 INR 1.1 12/22/17 16:47 APTT 36 SECONDS (21-34) H 12/22/17 16:47 - Constitutional Appears: Well - Head Exam Head Exam: ATRAUMATIC, NORMAL INSPECTION, NORMOCEPHALIC - Eye Exam Eye Exam: EOMI, Normal appearance, PERRL Pupil Exam: NORMAL ACCOMODATION, PERRL - ENT Exam ENT Exam: Mucous Membranes Moist, Normal Exam - Neck Exam Neck Exam: Full ROM, Normal Inspection. absent: Lymphadenopathy - Respiratory Exam Respiratory Exam: Decreased Breath Sounds - Cardiovascular Exam Cardiovascular Exam: REGULAR RHYTHM, +S1, +S2 - GI/Abdominal Exam GI & Abdominal Exam: Soft, Diminished Bowel Sounds - Rectal Exam Rectal Exam: Deferred Assessment and Plan - Assessment and Plan (Free Text) Plan: Podiatry follow-up IV antibiotic Surgical clearance Cardiology follow-up IV vancomycin Metformin IV Zosyn WBC 6.9 Medication as ordered
[2018-01-02] MEDS: Piperacill/Tazo 3.375gm in Dex 3.375 GM/50 ML BAG IVPB SCH ×3 (00:04→18:10)
--- NOTE | 2018-01-02 05:41 | CP.PCM.PN ---
Subjective - Date & Time of Evaluation Date of Evaluation: 01/02/18 Time of Evaluation: 05:38 - Subjective Subjective: PGY02 note for Dr. Deluna's service: Patient seen and examined at bedside. Nursing reports no acute events overnight. Patient is for great toe amputation tomorrow with Dr. Logan. Patient reporting minimal pain in left toe. Denies chest pain, SOB, palpitations , abd pain, N/V. Objective - Vital Signs/Intake and Output Vital Signs (last 24 hours): Temp Pulse Resp BP Pulse Ox 97.8 F 58 L 20 138/71 100 01/01/18 23:24 01/02/18 01:05 01/01/18 23:24 01/01/18 23:24 01/01/18 23:24 Intake and Output: 01/01/18 01/02/18 18:59 06:59 Intake Total 830 400 Balance 830 400 - Medications Medications: Current Medications Acetaminophen (Tylenol 325mg Tab) 650 mg PO Q6 PRN PRN Reason: Fever >100.4 F Amlodipine Besylate (Norvasc) 10 mg PO DAILY [facility] Last Admin: 01/01/18 10:37 Dose: 10 mg Collagenase (Santyl) 1 gm TOP DAILY [facility] Last Admin: 01/01/18 10:36 Dose: 1 applic Dextrose (Dextrose 50% Inj) 0 ml IVP .STAT PRN; Protocol PRN Reason: Hypoglycemia Protocol Dextrose (Glutose 15) 15 gm PO .ONCE PRN; Protocol PRN Reason: Hypoglycemia Protocol Glimepiride (Amaryl) 2 mg PO BID [facility] Last Admin: 01/01/18 18:14 Dose: 2 mg Glucagon (Glucagen Diagnostic Kit) 1 mg IM .STAT PRN; Protocol PRN Reason: Hypoglycemia Protocol Piperacillin Sod/Tazobactam Sod (Zosyn 3.375 Gm Iv Premix) 3.375 gm in 50 mls @ 100 mls/hr IVPB Q6H [facility] PRN Reason: Protocol Last Admin: 01/02/18 00:04 Dose: 100 mls/hr Insulin Aspart (Novolog) 0 unit SC ACHS DIA PRN Reason: Protocol Last Admin: 01/01/18 21:45 Dose: Not Given Metformin HCl (Glucophage) 500 mg PO BID [facility] Last Admin: 01/01/18 18:14 Dose: 500 mg Pantoprazole Sodium (Protonix Ec Tab) 40 mg PO DAILY [facility] Last Admin: 01/01/18 10:36 Dose: 40 mg Pioglitazone HCl (Actos) 15 mg PO BID [facility] Last Admin: 01/01/18 18:14 Dose: 15 mg Saccharomyces Boulardii (Florastor) 250 mg PO BID [facility] Last Admin: 01/01/18 18:14 Dose: 250 mg - Labs Labs: 12/30/17 07:12 12/30/17 07:12 PT 11.9 SECONDS (9.7-12.2) 12/22/17 16:47 INR 1.1 12/22/17 16:47 APTT 36 SECONDS (21-34) H 12/22/17 16:47 - Additional Findings Additional findings: - Constitutional Appears: Non-toxic, No Acute Distress - Head Exam Head Exam: ATRAUMATIC, NORMOCEPHALIC - Eye Exam Eye Exam: EOMI - ENT Exam ENT Exam: Mucous Membranes Moist - Respiratory Exam Respiratory Exam: NORMAL BREATHING PATTERN - Cardiovascular Exam Cardiovascular Exam: +S1, +S2 - GI/Abdominal Exam GI & Abdominal Exam: Soft, Normal bowel sound - small abscess improving (sacral area) - Extremities Exam Additional comments: Pedal pulses absent left hallux necrotic ulcer, feet warm bilaterally 1st toe wrapped in gauze bandage - Neurological Exam Neurological Exam: Alert, Awake - Psychiatric Exam Psychiatric exam: Normal Affect, Normal Mood - Skin Skin Exam: Dry, Intact Assessment and Plan - Assessment and Plan (Free Text) Plan: Left necrotic toe ulcer/osteomyelitis Admit to med/surg -CT angio shows mild to moderate atherosclerotic disease. Diffuse atherosclerotic calcification, especially posterior tibial arteries -Venous doppler negative for DVT -MRI Left Lower ext (12/27/17): Findings concerning for osteomyelitis of distal phalanx of first toe. -Arterial PVR positive for B/L LE arterial calc and small vessel disease -Left toe x-ray shows cortical irregularity distal phalanx 1st digit. Soft tissue swelling. Suspicious for acute osteomyelitis -Vascular surgery consulted, no surgical intervention recommended -ESR 30, Afebrile, no leukocytosis ID consulted, Dr. Blancas help appreciated -Zosyn 3.375gm Q8 (Day 7, started 12/23) -Vancomycin 1gm Q12h (Day 8,started 12/22) - Santyl - Tylenol 650mg PO Q6H for fever Podiatry consult, Dr. Logan - help appreciated - recommending amputation of great toe next 01/03/18 Pre-op labs: EKG (12/28/17): NSR @ 62bpm, 1st degree AV block, prolonged QTc (487 msec), CXR (12/26/17): NAD Coags: INR 1.1, PTT 36 Dr. Sims/Refugio, safety and health consultant for clearance prior to surgery - PATIENT IS ACCEPTABLE RISK FOR URGENT SURGERY. HE IS ABLE TO PERFORM >4 METS AT BASELINE. - IF EKG IS NORMAL HE DOES NOT REQUIRE ANY FURTHER CARDIAC WORK UP Padilla score: 0.2% risk of KS or cardiac arrest, intraoperatively or up to 30 days post-op Patient is at minimal risk for non-cardiac surgery. Surgeon/Anesthesia to explain risks of procedure further to patient. Blood culture (12/22/17): No growth x 5 days Prolonged QTc EKG (12/28/17): NSR @ 62bpm, 1st degree AV block, prolonged QTc (487 msec) f/u repeat EKG Sacral abscess Antibiotics as above Wound Care - santyl Dr. Haro, Gen Surgery - No I&D necessary - Hibclens wash DM Well controlled, A1c: 7.0 -Metformin 500mg BID -Glimepiride 2mg BID -Pioglitazone 500mg BID -ISS -Finger stick ACHS -Hypoglycemia protocol HTN Well controlled -Amlodipine 10mg Prophylactic measures -Lovenox -Protonix -Florastor Disposition: Pt for amputation of right great toe tomorrow w [employer], Dr. Logan. Padilla score: 0.2% risk of KS or cardiac arrest, intraoperatively or up to 30 days post-op. Patient is at minimal risk for non-cardiac surgery. Surgeon/ Anesthesia to explain risks of procedure further to patient. All management per Dr. Earnestine Deluna
[2018-01-02 08:15] LABS: BASO # 0.1 K/uL (0.0-0.2); BASO % 0.7 % (0.0-2.0); EOS # 0.6 K/uL (0.0-0.7); EOS % 7.8 % (0.0-4.0); HEMOGLOBIN 12.2 g/dL (12.0-18.0); LYMPH # 1.7 K/uL (1.0-4.3); LYMPH % 22.5 % (20.0-40.0); MEAN CORPUSCULAR HEMOGLOBIN 31.5 pg (27.0-31.0); MEAN CORPUSCULAR HGB CONC 36.1 g/dL (33.0-37.0); MEAN PLATELET VOLUME 6.7 fL (7.2-11.7); MONO # 0.7 K/uL (0.0-0.8); MONO % 8.9 % (0.0-10.0); NEUT # 4.5 K/uL (1.8-7.0); NEUT % 60.1 % (50.0-75.0); NRBC % 0.1 % (0.0-2.0); RBC 3.89 Mil/uL (4.40-5.90); RED CELL DISTRIBUTION WIDTH 14.3 % (11.5-14.5); WHITE BLOOD COUNT 7.5 K/uL (4.8-10.8)
[2018-01-02 08:17] LABS: ALB/GLOB RATIO 1.3 (1.0-2.1); ALBUMIN 4.2 g/dL (3.5-5.0); ALT/SGPT 23 U/L (21-72); AST/SGOT 36 U/L (17-59); BLOOD UREA NITROGEN 8 mg/dL (9-20); CALCIUM 9.2 mg/dl (8.6-10.4); GFR AFRICAN-AMERICAN > 60; GFR NON-AFRICAN AMERICAN > 60
--- NOTE | 2018-01-02 12:34 | CP.PCM.PN ---
Subjective - Date & Time of Evaluation Date of Evaluation: 01/02/18 Time of Evaluation: 12:30 - Subjective Subjective: Podiatry progress note for Dr. Logan 62 yo male patient was seen at bedside for left foot gangrenous hallux. Patient is seen resting comfortably in bed, in NAD, and AA0x3. Denies acute overnight events. Patient reports the same mild pain to the left foot. Dressing is clean, dry, and intact. Patient denies of any N/V/F/C or SOB today. No new pedal complaints Objective - Vital Signs/Intake and Output Vital Signs (last 24 hours): Temp Pulse Resp BP Pulse Ox 97.4 F L 59 L 20 157/74 H 100 01/02/18 07:25 01/02/18 10:06 01/02/18 07:25 01/02/18 10:06 01/02/18 10:06 Intake and Output: 01/02/18 01/02/18 06:59 18:59 Intake Total 400 550 Balance 400 550 - Medications Medications: Current Medications Acetaminophen (Tylenol 325mg Tab) 650 mg PO Q6 PRN PRN Reason: Fever >100.4 F Amlodipine Besylate (Norvasc) 10 mg PO DAILY [facility] Last Admin: 01/01/18 10:37 Dose: 10 mg Collagenase (Santyl) 1 gm TOP DAILY [facility] Last Admin: 01/01/18 10:36 Dose: 1 applic Dextrose (Dextrose 50% Inj) 0 ml IVP .STAT PRN; Protocol PRN Reason: Hypoglycemia Protocol Dextrose (Glutose 15) 15 gm PO .ONCE PRN; Protocol PRN Reason: Hypoglycemia Protocol Glimepiride (Amaryl) 2 mg PO BID [facility] Last Admin: 01/01/18 18:14 Dose: 2 mg Glucagon (Glucagen Diagnostic Kit) 1 mg IM .STAT PRN; Protocol PRN Reason: Hypoglycemia Protocol Piperacillin Sod/Tazobactam Sod (Zosyn 3.375 Gm Iv Premix) 3.375 gm in 50 mls @ 100 mls/hr IVPB Q6H [facility] PRN Reason: Protocol Last Admin: 01/02/18 06:01 Dose: 100 mls/hr Insulin Aspart (Novolog) 0 unit SC ACHS DIA PRN Reason: Protocol Last Admin: 01/01/18 21:45 Dose: Not Given Metformin HCl (Glucophage) 500 mg PO BID [facility] Last Admin: 01/01/18 18:14 Dose: 500 mg Pantoprazole Sodium (Protonix Ec Tab) 40 mg PO DAILY [facility] Last Admin: 01/01/18 10:36 Dose: 40 mg Pioglitazone HCl (Actos) 15 mg PO BID [facility] Last Admin: 01/01/18 18:14 Dose: 15 mg Saccharomyces Boulardii (Florastor) 250 mg PO BID [facility] Last Admin: 01/01/18 18:14 Dose: 250 mg - Labs Labs: 01/02/18 07:51 01/02/18 07:51 PT 11.9 SECONDS (9.7-12.2) 12/22/17 16:47 INR 1.1 12/22/17 16:47 APTT 36 SECONDS (21-34) H 12/22/17 16:47 - Constitutional Appears: Well, Non-toxic, No Acute Distress - Extremities Exam Additional comments: Left lower extremity exam DERM: Unstageable necrotic eschar noted to distal aspect of Left hallux. Dry eschar measures 3cm x 2cm. Eschar lifted laterally, no purulent drainage expressed from eschar. Mild odor is noted. Mild erythema noted around the eschar. No streaking, no tunneling, no undermining appreciated. VASC: Nonpalpable DP, PT noted to Left foot. Palpable DP and PT noted to Right foot NEURO: Gross sensation intact - Neurological Exam Neurological Exam: Alert, Awake, Oriented x3 - Psychiatric Exam Psychiatric exam: Normal Affect Assessment and Plan - Assessment and Plan (Free Text) Assessment: 62 yo male patient seen at bedside regarding Left hallux gangrene Plan: Patient was seen, evaluated at bedside Labs and vitals reviewed; WBC 7.5 MRI reveals evidence of OM to distal phalanx of Left hallux Left foot dressed with Betadine Soaked DSD patient to OR tomorrow AM for left hallux amputation patient to be NPO past midnight medical and cardiac optimization noted in chart spoke with daughter, cell #[phone], with regards to surgery podiatry will continue to monitor while patient remains in house
--- NOTE | 2018-01-02 13:45 | CP.PCM.PN ---
Subjective - Date & Time of Evaluation Date of Evaluation: 01/02/18 Time of Evaluation: 07:00 - Subjective Subjective: spoke to family Objective - Vital Signs/Intake and Output Vital Signs (last 24 hours): Temp Pulse Resp BP Pulse Ox 97.4 F L 59 L 20 157/74 H 100 01/02/18 07:25 01/02/18 10:06 01/02/18 07:25 01/02/18 10:06 01/02/18 10:06 Intake and Output: 01/02/18 01/02/18 06:59 18:59 Intake Total 400 550 Balance 400 550 - Medications Medications: Current Medications Acetaminophen (Tylenol 325mg Tab) 650 mg PO Q6 PRN PRN Reason: Fever >100.4 F Amlodipine Besylate (Norvasc) 10 mg PO DAILY [facility] Last Admin: 01/01/18 10:37 Dose: 10 mg Collagenase (Santyl) 1 gm TOP DAILY [facility] Last Admin: 01/01/18 10:36 Dose: 1 applic Dextrose (Dextrose 50% Inj) 0 ml IVP .STAT PRN; Protocol PRN Reason: Hypoglycemia Protocol Dextrose (Glutose 15) 15 gm PO .ONCE PRN; Protocol PRN Reason: Hypoglycemia Protocol Glimepiride (Amaryl) 2 mg PO BID [facility] Last Admin: 01/01/18 18:14 Dose: 2 mg Glucagon (Glucagen Diagnostic Kit) 1 mg IM .STAT PRN; Protocol PRN Reason: Hypoglycemia Protocol Piperacillin Sod/Tazobactam Sod (Zosyn 3.375 Gm Iv Premix) 3.375 gm in 50 mls @ 100 mls/hr IVPB Q6H [facility] PRN Reason: Protocol Last Admin: 01/02/18 06:01 Dose: 100 mls/hr Insulin Aspart (Novolog) 0 unit SC ACHS [facility] PRN Reason: Protocol Last Admin: 01/01/18 21:45 Dose: Not Given Metformin HCl (Glucophage) 500 mg PO BID [facility] Last Admin: 01/01/18 18:14 Dose: 500 mg Pantoprazole Sodium (Protonix Ec Tab) 40 mg PO DAILY [facility] Last Admin: 01/01/18 10:36 Dose: 40 mg Pioglitazone HCl (Actos) 15 mg PO BID [facility] Last Admin: 01/01/18 18:14 Dose: 15 mg Saccharomyces Boulardii (Florastor) 250 mg PO BID [facility] Last Admin: 01/01/18 18:14 Dose: 250 mg - Labs Labs: 01/02/18 07:51 01/02/18 07:51 PT 11.9 SECONDS (9.7-12.2) 12/22/17 16:47 INR 1.1 12/22/17 16:47 APTT 36 SECONDS (21-34) H 12/22/17 16:47 - Constitutional Appears: Well - Head Exam Head Exam: ATRAUMATIC, NORMAL INSPECTION, NORMOCEPHALIC - Eye Exam Eye Exam: EOMI, Normal appearance, PERRL Pupil Exam: NORMAL ACCOMODATION, PERRL - ENT Exam ENT Exam: Mucous Membranes Moist, Normal Exam - Neck Exam Neck Exam: Full ROM, Normal Inspection. absent: Lymphadenopathy - Respiratory Exam Respiratory Exam: Decreased Breath Sounds - Cardiovascular Exam Cardiovascular Exam: REGULAR RHYTHM, +S1, +S2 - GI/Abdominal Exam GI & Abdominal Exam: Soft, Diminished Bowel Sounds - Rectal Exam Rectal Exam: Deferred Assessment and Plan - Assessment and Plan (Free Text) Plan: Awaiting cardiology cardiac clearance for surgery redness today morning continue IV vancomycin Continue IV Zosyn Podiatry consult Cardiology consultation As ordered Left necrotic toe ulcer/osteomyelitis Admit to med/surg -CT angio shows mild to moderate atherosclerotic disease. Diffuse atherosclerotic calcification, especially posterior tibial arteries -Venous doppler negative for DVT -MRI Left Lower ext (12/27/17): Findings concerning for osteomyelitis of distal phalanx of first toe. -Arterial PVR positive for B/L LE arterial calc and small vessel disease -Left toe x-ray shows cortical irregularity distal phalanx 1st digit. Soft tissue swelling. Suspicious for acute osteomyelitis -Vascular surgery consulted, no surgical intervention recommended -ESR 30, Afebrile, no leukocytosis ID consulted, Dr. Blancas help appreciated -Zosyn 3.375gm Q8 (Day 7, started 12/23) -Vancomycin 1gm Q12h (Day 8,started 12/22) - Santyl - Tylenol 650mg PO Q6H for fever Podiatry consult, Dr. Logan - help appreciated - recommending amputation of great toe next 01/03/18 Pre-op labs: EKG (12/28/17): NSR @ 62bpm, 1st degree AV block, prolonged QTc (487 msec), CXR (12/26/17): NAD Coags: INR 1.1, PTT 36 Dr. Sims/Refugio, data warehouse consultant for clearance prior to surgery - PATIENT IS ACCEPTABLE RISK FOR URGENT SURGERY. HE IS ABLE TO PERFORM >4 METS AT BASELINE. - IF EKG IS NORMAL HE DOES NOT REQUIRE ANY FURTHER CARDIAC WORK UP Padilla score: 0.2% risk of [place] or cardiac arrest, intraoperatively or up to 30 days post-op Patient is at minimal risk for non-cardiac surgery. Surgeon/Anesthesia to explain risks of procedure further to patient. Blood culture (12/22/17): No growth x 5 days Prolonged QTc EKG (12/28/17): NSR @ 62bpm, 1st degree AV block, prolonged QTc (487 msec) f/u repeat EKG Sacral abscess Antibiotics as above Wound Care - júnioryl Dr. Haro, Gen Surgery - No I&D necessary - Hibclens wash DM Well controlled, A1c: 7.0 -Metformin 500mg BID -Glimepiride 2mg BID -Pioglitazone 500mg BID -ISS -Finger stick ACHS -Hypoglycemia protocol HTN Well controlled -Amlodipine 10mg Prophylactic measures -Lovenox -Protonix -Florastor Disposition: Pt for amputation of right great toe tomorrow w [employer], Dr. Logan. Padilla score: 0.2% risk of GA or cardiac arrest, intraoperatively or up to 30 days post-op. Patient is at minimal risk for non-cardiac surgery. Surgeon/ Anesthesia to explain risks of procedure further to patient.
[2018-01-02] MEDS: (Novolog) Insulin Aspart, Recombinant 100 u/ml 10 ml vial SC SCH ×2 (16:33→21:40)
[2018-01-02] MEDS: Saccharomyces Boulardi 250 mg Cap PO SCH (18:09)
[2018-01-03] MEDS ORDERED: Dextrose 5%/0.45% NS 1,000 ML IV SCH
[2018-01-03] MEDS: Piperacill/Tazo 3.375gm in Dex 3.375 GM/50 ML BAG IVPB SCH ×5 (00:09→23:54)
--- NOTE | 2018-01-03 06:05 | CP.PCM.PN ---
<Stan Bates - Last Filed: 01/03/18 11:13> Subjective - Date & Time of Evaluation Date of Evaluation: 01/03/18 Time of Evaluation: 06:01 - Subjective Subjective: PGY02 note for Dr. Deluna's service: Patient seen and examined at bedside. Nursing reports no acute events overnight. Patient is for OR today for great toe amputation with Dr. Logan. Patient reporting minimal pain this morning. Further denies headache, fever, chills, chest pain, SOB, palpitations, abd pain, N/V. Objective - Vital Signs/Intake and Output Vital Signs (last 24 hours): Temp Pulse Resp BP Pulse Ox 97.8 F 61 20 144/73 98 01/03/18 00:00 01/03/18 00:00 01/03/18 00:00 01/03/18 00:00 01/03/18 00:00 Intake and Output: 01/02/18 01/03/18 18:59 06:59 Intake Total 550 800 Balance 550 800 - Medications Medications: Current Medications Acetaminophen (Tylenol 325mg Tab) 650 mg PO Q6 PRN PRN Reason: Fever >100.4 F Amlodipine Besylate (Norvasc) 10 mg PO DAILY [facility] Last Admin: 01/01/18 10:37 Dose: 10 mg Collagenase (Santyl) 1 gm TOP DAILY [facility] Last Admin: 01/01/18 10:36 Dose: 1 applic Dextrose (Dextrose 50% Inj) 0 ml IVP .STAT PRN; Protocol PRN Reason: Hypoglycemia Protocol Dextrose (Glutose 15) 15 gm PO .ONCE PRN; Protocol PRN Reason: Hypoglycemia Protocol Glimepiride (Amaryl) 2 mg PO BID [facility] Last Admin: 01/02/18 18:09 Dose: 2 mg Glucagon (Glucagen Diagnostic Kit) 1 mg IM .STAT PRN; Protocol PRN Reason: Hypoglycemia Protocol Piperacillin Sod/Tazobactam Sod (Zosyn 3.375 Gm Iv Premix) 3.375 gm in 50 mls @ 100 mls/hr IVPB Q6H [facility] PRN Reason: Protocol Last Admin: 01/03/18 05:37 Dose: 100 mls/hr Vancomycin HCl 1,200 mg/ (Sodium Chloride) 500 mls @ 250 mls/hr IVPB Q12H [facility] PRN Reason: Protocol Last Admin: 01/02/18 19:31 Dose: 250 mls/hr Dextrose/Sodium Chloride (Dextrose 5%/0.45% Ns 1000 Ml) 1,000 mls @ 40 mls/hr IV .Q24H [facility] Last Admin: 01/03/18 00:04 Dose: 40 mls/hr Insulin Aspart (Novolog) 0 unit SC ACHS [facility] PRN Reason: Protocol Last Admin: 01/02/18 21:40 Dose: Not Given Metformin HCl (Glucophage) 500 mg PO BID [facility] Last Admin: 01/02/18 18:09 Dose: 500 mg Pantoprazole Sodium (Protonix Ec Tab) 40 mg PO DAILY [facility] Last Admin: 01/01/18 10:36 Dose: 40 mg Pioglitazone HCl (Actos) 15 mg PO BID [facility] Last Admin: 01/02/18 18:09 Dose: 15 mg Saccharomyces Boulardii (Florastor) 250 mg PO BID [facility] Last Admin: 01/02/18 18:09 Dose: 250 mg - Labs Labs: 01/02/18 07:51 01/02/18 07:51 PT 11.9 SECONDS (9.7-12.2) 12/22/17 16:47 INR 1.1 12/22/17 16:47 APTT 36 SECONDS (21-34) H 12/22/17 16:47 - Additional Findings Additional findings: - Constitutional Appears: Non-toxic, No Acute Distress - Head Exam Head Exam: ATRAUMATIC, NORMOCEPHALIC - Eye Exam Eye Exam: EOMI - ENT Exam ENT Exam: Mucous Membranes Moist - Respiratory Exam Respiratory Exam: NORMAL BREATHING PATTERN - Cardiovascular Exam Cardiovascular Exam: +S1, +S2 - GI/Abdominal Exam GI & Abdominal Exam: Soft, Normal bowel sound - small abscess improving (sacral area) - Extremities Exam Additional comments: Pedal pulses absent left hallux necrotic ulcer, feet warm bilaterally 1st toe wrapped in gauze bandage - Neurological Exam Neurological Exam: Alert, Awake - Psychiatric Exam Psychiatric exam: Normal Affect, Normal Mood - Skin Skin Exam: Dry, Intact Assessment and Plan - Assessment and Plan (Free Text) Plan: Left necrotic toe ulcer/osteomyelitis Admit to med/surg -CT angio shows mild to moderate atherosclerotic disease. Diffuse atherosclerotic calcification, especially posterior tibial arteries -Venous doppler negative for DVT -MRI Left Lower ext (12/27/17): Findings concerning for osteomyelitis of distal phalanx of first toe. -Arterial PVR positive for B/L LE arterial calc and small vessel disease -Left toe x-ray shows cortical irregularity distal phalanx 1st digit. Soft tissue swelling. Suspicious for acute osteomyelitis -Vascular surgery consulted, no surgical intervention recommended -ESR 30, Afebrile, no leukocytosis ID consulted, Dr. Blancas help appreciated - Zosyn 3.375gm Q8 (Day 7, started 12/23) - Vancomycin 1gm Q12h (Day 12,started 12/22) - Santyl - Tylenol 650mg PO Q6H for fever Podiatry consult, Dr. Logan - help appreciated - amputation of great toe today (01/03) Pre-op labs: EKG (12/28/17): NSR @ 62bpm, 1st degree AV block, prolonged QTc (487 msec), CXR (12/26/17): NAD Coags: INR 1.1, PTT 36 Dr. Sims/Refugio, emergency management consultant for clearance prior to surgery - PATIENT IS ACCEPTABLE RISK FOR URGENT SURGERY. HE IS ABLE TO PERFORM >4 METS AT BASELINE. - HE DOES NOT REQUIRE ANY FURTHER CARDIAC WORK UP. EKG IS NORMAL. Padilla score: 0.2% risk of ID or cardiac arrest, intraoperatively or up to 30 days post-op Patient is at minimal risk for non-cardiac surgery. Surgeon/Anesthesia to explain risks of procedure further to patient. Blood culture (12/22/17): No growth x 5 days Prolonged QTc EKG (12/28/17): NSR @ 62bpm, 1st degree AV block, prolonged QTc (487 msec) EKG (01/02/18): Sinus elver @ 68 bpm; 1st degree AV block; prolonged QTc (473) Per Cardio: HE DOES NOT REQUIRE ANY FURTHER CARDIAC WORK UP. EKG IS NORMAL Sacral abscess Antibiotics as above Wound Care - santyl Dr. Haro, Gen Surgery - No I&D necessary - Hibclens wash DM Well controlled, A1c: 7.0 -Metformin 500mg BID -Glimepiride 2mg BID -Pioglitazone 500mg BID -ISS -Finger stick ACHS -Hypoglycemia protocol HTN Well controlled -Amlodipine 10mg Prophylactic measures -Lovenox HELD for procedure -Protonix -Florastor Disposition: Pt for amputation of right great toe today w Control Officer Manager, Dr. Logan. Padilla score: 0.2% risk of ID or cardiac arrest, intraoperatively or up to 30 days post-op. Patient is at minimal risk for non-cardiac surgery. Surgeon/ Anesthesia to explain risks of procedure further to patient. All management per Dr. Earnestine Deluna <Dariana Deluna S - Last Filed: 01/04/18 00:22> Objective - Vital Signs/Intake and Output Vital Signs (last 24 hours): Temp Pulse Resp BP Pulse Ox 98 F 56 L 20 160/71 H 97 01/03/18 16:00 01/03/18 16:00 01/03/18 16:00 01/03/18 16:00 01/03/18 16:00 Intake and Output: 01/03/18 01/04/18 18:59 06:59 Intake Total 810 800 Output Total 850 Balance 810 -50 - Medications Medications: Current Medications Acetaminophen (Tylenol 325mg Tab) 650 mg PO Q6 PRN PRN Reason: Fever >100.4 F Acetaminophen (Tylenol 325mg Tab) 650 mg PO Q6 PRN PRN Reason: Pain, Mild (1-3) Amlodipine Besylate (Norvasc) 10 mg PO DAILY [facility] Last Admin: 01/03/18 12:00 Dose: 10 mg Collagenase (Santyl) 1 gm TOP DAILY [facility] Last Admin: 01/03/18 10:32 Dose: Not Given Dextrose (Dextrose 50% Inj) 0 ml IVP .STAT PRN; Protocol PRN Reason: Hypoglycemia Protocol Dextrose (Glutose 15) 15 gm PO .ONCE PRN; Protocol PRN Reason: Hypoglycemia Protocol Glimepiride (Amaryl) 2 mg PO BID [facility] Last Admin: 01/03/18 17:16 Dose: 2 mg Glucagon (Glucagen Diagnostic Kit) 1 mg IM .STAT PRN; Protocol PRN Reason: Hypoglycemia Protocol Piperacillin Sod/Tazobactam Sod (Zosyn 3.375 Gm Iv Premix) 3.375 gm in 50 mls @ 100 mls/hr IVPB Q6H [facility] PRN Reason: Protocol Last Admin: 01/03/18 23:54 Dose: 100 mls/hr Vancomycin HCl 1,200 mg/ (Sodium Chloride) 500 mls @ 250 mls/hr IVPB Q12H [facility] PRN Reason: Protocol Last Admin: 01/03/18 18:00 Dose: 250 mls/hr Lactated Ringer's (Lactated Ringer's) 1,000 mls @ 100 mls/hr IV .Q10H [facility] Last Admin: 01/03/18 20:05 Dose: Not Given Insulin Aspart (Novolog) 0 unit SC ACHS [facility]IA PRN Reason: Protocol Last Admin: 01/03/18 21:47 Dose: Not Given Metformin HCl (Glucophage) 500 mg PO BID [facility] Last Admin: 01/03/18 17:16 Dose: 500 mg Oxycodone/Acetaminophen (Percocet 5/325 Mg Tab) 1 tab PO Q6H PRN PRN Reason: Pain, moderate (4-7) Stop: 01/06/18 10:14 Last Admin: 01/03/18 19:52 Dose: 1 tab Oxycodone/Acetaminophen (Percocet 5/325 Mg Tab) 2 tab PO Q6H PRN PRN Reason: Pain, severe (8-10) Stop: 01/06/18 10:14 Pantoprazole Sodium (Protonix Ec Tab) 40 mg PO DAILY [facility] Last Admin: 01/03/18 10:32 Dose: Not Given Pioglitazone HCl (Actos) 15 mg PO BID [facility] Last Admin: 01/03/18 17:16 Dose: 15 mg Saccharomyces Boulardii (Florastor) 250 mg PO BID [facility] Last Admin: 01/03/18 17:16 Dose: 250 mg - Labs Labs: 01/03/18 07:15 01/03/18 07:15 PT 11.5 SECONDS (9.7-12.2) 01/03/18 08:22 INR 1.1 01/03/18 08:22 APTT 37 SECONDS (21-34) H 01/03/18 08:22 Attending/Attestation - Attestation I have personally seen and examined this patient.: Yes I have fully participated in the care of the patient.: Yes I have reviewed all pertinent clinical information, including history, physical exam and plan: Yes
[2018-01-03] MEDS ORDERED: Lidocaine 2% MPF (5 ml) Inj ONE (07:01)
[2018-01-03] MEDS ORDERED: Bupivacaine HCl 0.5% PF (30 ml) Inj ONE (07:01)
[2018-01-03] MEDS ORDERED: ceFAZolin 1 gm in NS 0 GM/0 ML BAG IVPB ONE (07:01)
[2018-01-03 07:28] LABS: BASO # 0.1 K/uL (0.0-0.2); BASO % 1.3 % (0.0-2.0); EOS # 0.6 K/uL (0.0-0.7); EOS % 6.2 % (0.0-4.0); HEMOGLOBIN 12.7 g/dL (12.0-18.0); LYMPH # 2.2 K/uL (1.0-4.3); LYMPH % 24.8 % (20.0-40.0); MEAN CELL VOLUME 87.9 fL (80.0-94.0); MEAN CORPUSCULAR HEMOGLOBIN 31.3 pg (27.0-31.0); MEAN CORPUSCULAR HGB CONC 35.6 g/dL (33.0-37.0); MEAN PLATELET VOLUME 7.1 fL (7.2-11.7); MONO # 0.7 K/uL (0.0-0.8); MONO % 8.4 % (0.0-10.0); NEUT # 5.3 K/uL (1.8-7.0); NEUT % 59.3 % (50.0-75.0); NRBC % 0.1 % (0.0-2.0); RBC 4.05 Mil/uL (4.40-5.90); RED CELL DISTRIBUTION WIDTH 14.6 % (11.5-14.5); WHITE BLOOD COUNT 8.9 K/uL (4.8-10.8)
[2018-01-03 08:14] LABS: ALB/GLOB RATIO 1.2 (1.0-2.1); ALBUMIN 4.4 g/dL (3.5-5.0); ALT/SGPT 18 U/L (21-72); AST/SGOT 28 U/L (17-59); BLOOD UREA NITROGEN 7 mg/dL (9-20); GFR AFRICAN-AMERICAN > 60; GFR NON-AFRICAN AMERICAN > 60
[2018-01-03] MEDS: (Novolog) Insulin Aspart, Recombinant 100 u/ml 10 ml vial SC SCH ×4 (08:21→21:47)
--- NOTE | 2018-01-03 08:28 | CP.PCM.PN ---
Subjective - Date & Time of Evaluation Date of Evaluation: 01/03/18 Time of Evaluation: 10:00 - Subjective Subjective: Events reviewed Objective - Vital Signs/Intake and Output Vital Signs (last 24 hours): Temp Pulse Resp BP Pulse Ox 98.5 F 62 20 131/70 96 01/03/18 08:04 01/03/18 08:04 01/03/18 08:04 01/03/18 08:04 01/03/18 08:04 Intake and Output: 01/03/18 01/03/18 06:59 18:59 Intake Total 1170 Balance 1170 - Medications Medications: Current Medications Acetaminophen (Tylenol 325mg Tab) 650 mg PO Q6 PRN PRN Reason: Fever >100.4 F Amlodipine Besylate (Norvasc) 10 mg PO DAILY [facility] Last Admin: 01/01/18 10:37 Dose: 10 mg Collagenase (Santyl) 1 gm TOP DAILY [facility] Last Admin: 01/01/18 10:36 Dose: 1 applic Dextrose (Dextrose 50% Inj) 0 ml IVP .STAT PRN; Protocol PRN Reason: Hypoglycemia Protocol Dextrose (Glutose 15) 15 gm PO .ONCE PRN; Protocol PRN Reason: Hypoglycemia Protocol Glimepiride (Amaryl) 2 mg PO BID [facility] Last Admin: 01/02/18 18:09 Dose: 2 mg Glucagon (Glucagen Diagnostic Kit) 1 mg IM .STAT PRN; Protocol PRN Reason: Hypoglycemia Protocol Piperacillin Sod/Tazobactam Sod (Zosyn 3.375 Gm Iv Premix) 3.375 gm in 50 mls @ 100 mls/hr IVPB Q6H [facility] PRN Reason: Protocol Last Admin: 01/03/18 05:37 Dose: 100 mls/hr Vancomycin HCl 1,200 mg/ (Sodium Chloride) 500 mls @ 250 mls/hr IVPB Q12H [facility] PRN Reason: Protocol Last Admin: 01/03/18 06:52 Dose: 250 mls/hr Dextrose/Sodium Chloride (Dextrose 5%/0.45% Ns 1000 Ml) 1,000 mls @ 40 mls/hr IV .Q24H [facility] Last Admin: 01/03/18 00:04 Dose: 40 mls/hr Insulin Aspart (Novolog) 0 unit SC ACHS [facility] PRN Reason: Protocol Last Admin: 01/03/18 08:21 Dose: Not Given Metformin HCl (Glucophage) 500 mg PO BID [facility] Last Admin: 01/02/18 18:09 Dose: 500 mg Pantoprazole Sodium (Protonix Ec Tab) 40 mg PO DAILY [facility] Last Admin: 01/01/18 10:36 Dose: 40 mg Pioglitazone HCl (Actos) 15 mg PO BID [facility] Last Admin: 01/02/18 18:09 Dose: 15 mg Saccharomyces Boulardii (Florastor) 250 mg PO BID [facility] Last Admin: 01/02/18 18:09 Dose: 250 mg - Labs Labs: 01/03/18 07:15 01/03/18 07:15 PT 11.9 SECONDS (9.7-12.2) 12/22/17 16:47 INR 1.1 12/22/17 16:47 APTT 36 SECONDS (21-34) H 12/22/17 16:47 - Constitutional Appears: Well, Non-toxic - Cardiovascular Exam Cardiovascular Exam: REGULAR RHYTHM, RRR, +S1, +S2. absent: JVD Additional comments: Left toe gangrene - GI/Abdominal Exam GI & Abdominal Exam: Normal Bowel Sounds. absent: Organomegaly Assessment and Plan - Assessment and Plan (Free Text) Assessment: EKG images viewed by me: NSR, QT is corrected to be normal, no st t changes 62 year old man with CLI with osteomyelitis ABX, non revascularizable PVD. Scheduled for amputation. Check EKG. PATIENT IS ACCEPTABLE RISK FOR URGENT SURGERY. HE IS ABLE TO PERFORM >4 METS AT BASELINE. HE DOES NOT REQUIRE ANY FURTHER CARDIAC WORK UP. EKG IS NORMAL HTN is chronic and stable on amlodipine DM is chronic and stable on insulin ASHD add high dose statin, add antiplatelet.
[2018-01-03 08:38] LABS: INR 1.1; PROTHROMBIN TIME 11.5 SECONDS (9.7-12.2)
[2018-01-03] MEDS ORDERED: Lactated Ringer's 1,000 ML IV ONE (09:00)
[2018-01-03] MEDS ORDERED: Midazolam 2 MG/2 ML VIAL ONE (09:18)
[2018-01-03] MEDS ORDERED: Propofol 10 mg/ml Inj (20 ML) ONE (09:18)
[2018-01-03] MEDS: Lactated Ringer's 1,000 ML IV SCH ×2 (10:00→20:05)
[2018-01-03] MEDS ORDERED: Oxycodone/Acetaminophen 5/325 mg Tab PO PRN ×2 (10:13)
--- NOTE | 2018-01-03 10:17 | PCM.SURG1 ---
Surgeon's Initial Post Op Note - Surgeon's Notes Surgeon: Dr. Logan Division Sergeant: Dr. Ashley Perez PGY-1 Type of Anesthesia: IV Sedation, Local (14cc 1:1 mix 2% Lidocaine plain and 0.5 % Marcaine plain) Anesthesia Administered By: Mason Louis CRNA/Dr. Deena GALEANA Pre-Operative Diagnosis: left foot hallux eschar with distal phalanx ostemyelitis Operative Findings: see operative report. M: 2-0 Prolene, 3-0 Prolene, betadine Adaptic, DSD Post-Operative Diagnosis: left foot hallux eschar with distal phalanx ostemyelitis Operation Performed: left foot partial hallux amputation Specimen/Specimens Removed: distal phalanx left foot hallux Estimated Blood Loss: EBL {In ML}: 15 Blood Products Given: N/A Drains Used: No Drains Post-Op Condition: Good Date of Surgery/Procedure: 01/03/18 Time of Surgery/Procedure: 09:40
[2018-01-03] MEDS ORDERED: HYDROmorphone 0.5 mg/0.5 ml ISec IVP PRN (10:28)
[2018-01-03] MEDS: Saccharomyces Boulardi 250 mg Cap PO SCH ×2 (10:31→17:16)
[2018-01-03] MEDS: Collagenase 250 Units/gm Ointment(30 gm) TOP SCH (10:32)
[2018-01-03] MEDS: Pantoprazole 40 mg EC Tab PO SCH (10:32)
--- NOTE | 2018-01-03 11:45 | RAD ---
PROCEDURE: Left Foot Radiographs. HISTORY: s/p left partial hallux surgery COMPARISON: 12/22/2017 FINDINGS: BONES: Status post amputation distal aspect 1st digit, at the interphalangeal joint. No other indications. No acute fracture. JOINTS: Normal. SOFT TISSUES: Vascular calcifications are noted. OTHER FINDINGS: None. IMPRESSION: Amputation 1st digit. No additional abnormality.
--- NOTE | 2018-01-03 14:01 | CP.PCM.PN ---
Subjective - Date & Time of Evaluation Date of Evaluation: 01/03/18 Time of Evaluation: 07:00 - Subjective Subjective: clinically same Objective - Vital Signs/Intake and Output Vital Signs (last 24 hours): Temp Pulse Resp BP Pulse Ox 97.6 F 47 L 20 141/67 99 01/03/18 11:56 01/03/18 11:56 01/03/18 11:56 01/03/18 11:56 01/03/18 11:56 Intake and Output: 01/03/18 01/03/18 06:59 18:59 Intake Total 1170 810 Balance 1170 810 - Medications Medications: Current Medications Acetaminophen (Tylenol 325mg Tab) 650 mg PO Q6 PRN PRN Reason: Fever >100.4 F Acetaminophen (Tylenol 325mg Tab) 650 mg PO Q6 PRN PRN Reason: Pain, Mild (1-3) Amlodipine Besylate (Norvasc) 10 mg PO DAILY [facility] Last Admin: 01/03/18 12:00 Dose: 10 mg Collagenase (Santyl) 1 gm TOP DAILY [facility] Last Admin: 01/03/18 10:32 Dose: Not Given Dextrose (Dextrose 50% Inj) 0 ml IVP .STAT PRN; Protocol PRN Reason: Hypoglycemia Protocol Dextrose (Glutose 15) 15 gm PO .ONCE PRN; Protocol PRN Reason: Hypoglycemia Protocol Glimepiride (Amaryl) 2 mg PO BID [facility] Last Admin: 01/03/18 10:31 Dose: Not Given Glucagon (Glucagen Diagnostic Kit) 1 mg IM .STAT PRN; Protocol PRN Reason: Hypoglycemia Protocol Piperacillin Sod/Tazobactam Sod (Zosyn 3.375 Gm Iv Premix) 3.375 gm in 50 mls @ 100 mls/hr IVPB Q6H [facility]IA PRN Reason: Protocol Last Admin: 01/03/18 12:01 Dose: 100 mls/hr Vancomycin HCl 1,200 mg/ (Sodium Chloride) 500 mls @ 250 mls/hr IVPB Q12H [facility]IA PRN Reason: Protocol Last Admin: 01/03/18 06:52 Dose: 250 mls/hr Dextrose/Sodium Chloride (Dextrose 5%/0.45% Ns 1000 Ml) 1,000 mls @ 40 mls/hr IV .Q24H [facility] Last Admin: 01/03/18 00:04 Dose: 40 mls/hr Lactated Ringer's (Lactated Ringer's) 1,000 mls @ 100 mls/hr IV .Q10H [facility] Last Admin: 01/03/18 10:00 Dose: Not Given Insulin Aspart (Novolog) 0 unit SC ACHS [facility] PRN Reason: Protocol Last Admin: 01/03/18 12:01 Dose: Not Given Metformin HCl (Glucophage) 500 mg PO BID [facility] Last Admin: 01/03/18 10:31 Dose: Not Given Oxycodone/Acetaminophen (Percocet 5/325 Mg Tab) 1 tab PO Q6H PRN PRN Reason: Pain, moderate (4-7) Stop: 01/06/18 10:14 Oxycodone/Acetaminophen (Percocet 5/325 Mg Tab) 2 tab PO Q6H PRN PRN Reason: Pain, severe (8-10) Stop: 01/06/18 10:14 Pantoprazole Sodium (Protonix Ec Tab) 40 mg PO DAILY [facility] Last Admin: 01/03/18 10:32 Dose: Not Given Pioglitazone HCl (Actos) 15 mg PO BID [facility] Last Admin: 01/03/18 10:31 Dose: Not Given Saccharomyces Boulardii (Florastor) 250 mg PO BID [facility] Last Admin: 01/03/18 10:31 Dose: Not Given - Labs Labs: 01/03/18 07:15 01/03/18 07:15 PT 11.5 SECONDS (9.7-12.2) 01/03/18 08:22 INR 1.1 01/03/18 08:22 APTT 37 SECONDS (21-34) H 01/03/18 08:22 - Constitutional Appears: Well - Head Exam Head Exam: ATRAUMATIC, NORMAL INSPECTION, NORMOCEPHALIC - Eye Exam Eye Exam: EOMI, Normal appearance, PERRL Pupil Exam: NORMAL ACCOMODATION, PERRL - ENT Exam ENT Exam: Mucous Membranes Moist, Normal Exam - Neck Exam Neck Exam: Full ROM, Normal Inspection. absent: Lymphadenopathy - Respiratory Exam Respiratory Exam: Decreased Breath Sounds - Cardiovascular Exam Cardiovascular Exam: REGULAR RHYTHM, +S1, +S2 - GI/Abdominal Exam GI & Abdominal Exam: Soft, Diminished Bowel Sounds - Rectal Exam Rectal Exam: Deferred Assessment and Plan - Assessment and Plan (Free Text) Plan: Left necrotic toe ulcer/osteomyelitis Admit to med/surg -CT angio shows mild to moderate atherosclerotic disease. Diffuse atherosclerotic calcification, especially posterior tibial arteries -Venous doppler negative for DVT -MRI Left Lower ext (12/27/17): Findings concerning for osteomyelitis of distal phalanx of first toe. -Arterial PVR positive for B/L LE arterial calc and small vessel disease -Left toe x-ray shows cortical irregularity distal phalanx 1st digit. Soft tissue swelling. Suspicious for acute osteomyelitis -Vascular surgery consulted, no surgical intervention recommended -ESR 30, Afebrile, no leukocytosis ID consulted, Dr. Blancas help appreciated - Zosyn 3.375gm Q8 (Day 7, started 12/23) - Vancomycin 1gm Q12h (Day 12,started 12/22) - Santyl - Tylenol 650mg PO Q6H for fever Podiatry consult, Dr. Logan - help appreciated - amputation of great toe today (01/03) Pre-op labs: EKG (12/28/17): NSR @ 62bpm, 1st degree AV block, prolonged QTc (487 msec), CXR (12/26/17): NAD Coags: INR 1.1, PTT 36 Dr. Sims/Refugio, edi consultant for clearance prior to surgery - PATIENT IS ACCEPTABLE RISK FOR URGENT SURGERY. HE IS ABLE TO PERFORM >4 METS AT BASELINE. - HE DOES NOT REQUIRE ANY FURTHER CARDIAC WORK UP. EKG IS NORMAL. Padilla score: 0.2% risk of [place] or cardiac arrest, intraoperatively or up to 30 days post-op Patient is at minimal risk for non-cardiac surgery. Surgeon/Anesthesia to explain risks of procedure further to patient. Blood culture (12/22/17): No growth x 5 days Prolonged QTc EKG (12/28/17): NSR @ 62bpm, 1st degree AV block, prolonged QTc (487 msec) EKG (01/02/18): Sinus elver @ 68 bpm; 1st degree AV block; prolonged QTc (473) Per Cardio: HE DOES NOT REQUIRE ANY FURTHER CARDIAC WORK UP. EKG IS NORMAL Sacral abscess Antibiotics as above Wound Care - yola Haro, Gen Surgery - No I&D necessary - Hibclens wash DM Well controlled, A1c: 7.0 -Metformin 500mg BID -Glimepiride 2mg BID -Pioglitazone 500mg BID -ISS -Finger stick ACHS -Hypoglycemia protocol HTN Well controlled -Amlodipine 10mg Prophylactic measures -Lovenox HELD for procedure -Protonix -Florastor Disposition: Pt for amputation of right great toe today w Laser Print Operator, Dr. Logan. Padilla score: 0.2% risk of [place] or cardiac arrest, intraoperatively or up to 30 days post-op. Patient is at minimal risk for non-cardiac surgery. Surgeon/ Anesthesia to explain risks of procedure further to patient.
[2018-01-04] MEDS: Piperacill/Tazo 3.375gm in Dex 3.375 GM/50 ML BAG IVPB SCH ×4 (05:25→23:49)
[2018-01-04] MEDS: Lactated Ringer's 1,000 ML IV SCH (06:30)
[2018-01-04 08:14] LABS: BASO # 0.1 K/uL (0.0-0.2); EOS # 0.5 K/uL (0.0-0.7); EOS % 5.9 % (0.0-4.0); HEMOGLOBIN 11.8 g/dL (12.0-18.0); LYMPH # 1.6 K/uL (1.0-4.3); MEAN CELL VOLUME 88.4 fL (80.0-94.0); MEAN CORPUSCULAR HEMOGLOBIN 31.7 pg (27.0-31.0); MEAN CORPUSCULAR HGB CONC 35.8 g/dL (33.0-37.0); MEAN PLATELET VOLUME 6.9 fL (7.2-11.7); MONO # 0.7 K/uL (0.0-0.8); MONO % 9.2 % (0.0-10.0); NEUT # 4.9 K/uL (1.8-7.0); NEUT % 62.9 % (50.0-75.0); NRBC % 0.1 % (0.0-2.0); RBC 3.73 Mil/uL (4.40-5.90); RED CELL DISTRIBUTION WIDTH 14.2 % (11.5-14.5); WHITE BLOOD COUNT 7.8 K/uL (4.8-10.8)
[2018-01-04] MEDS: (Novolog) Insulin Aspart, Recombinant 100 u/ml 10 ml vial SC SCH ×4 (08:23→21:19)
[2018-01-04 08:44] LABS: ALB/GLOB RATIO 1.1 (1.0-2.1); ALBUMIN 3.6 g/dL (3.5-5.0); ALT/SGPT 26 U/L (21-72); AST/SGOT 29 U/L (17-59); BLOOD UREA NITROGEN 7 mg/dL (9-20); CALCIUM 8.8 mg/dl (8.6-10.4); GFR AFRICAN-AMERICAN > 60; GFR NON-AFRICAN AMERICAN > 60
[2018-01-04] MEDS: Pantoprazole 40 mg EC Tab PO SCH (10:00)
--- NOTE | 2018-01-04 10:11 | CP.PCM.PN ---
Subjective - Date & Time of Evaluation Date of Evaluation: 01/04/18 Time of Evaluation: 10:10 - Subjective Subjective: Progress Note for Dr. Deluna Patients seen and examined at bedside. No acute events reported overnight. Patient is resting in bed comfortably in no acute distress. Patient denies fever , chills, headache, shortness of breath, chest pain, nausea, vomiting, or diarrhea. Objective - Vital Signs/Intake and Output Vital Signs (last 24 hours): Temp Pulse Resp BP Pulse Ox 97.6 F 60 20 162/77 H 96 01/04/18 07:33 01/04/18 07:33 01/04/18 07:33 01/04/18 07:33 01/04/18 07:33 Intake and Output: 01/04/18 01/04/18 06:59 18:59 Intake Total 1550 Output Total 850 Balance 700 - Medications Medications: Current Medications Acetaminophen (Tylenol 325mg Tab) 650 mg PO Q6 PRN PRN Reason: Fever >100.4 F Acetaminophen (Tylenol 325mg Tab) 650 mg PO Q6 PRN PRN Reason: Pain, Mild (1-3) Amlodipine Besylate (Norvasc) 10 mg PO DAILY [facility] Last Admin: 01/03/18 12:00 Dose: 10 mg Collagenase (Santyl) 1 gm TOP DAILY [facility] Last Admin: 01/03/18 10:32 Dose: Not Given Dextrose (Dextrose 50% Inj) 0 ml IVP .STAT PRN; Protocol PRN Reason: Hypoglycemia Protocol Dextrose (Glutose 15) 15 gm PO .ONCE PRN; Protocol PRN Reason: Hypoglycemia Protocol Glimepiride (Amaryl) 2 mg PO BID [facility] Last Admin: 01/03/18 17:16 Dose: 2 mg Glucagon (Glucagen Diagnostic Kit) 1 mg IM .STAT PRN; Protocol PRN Reason: Hypoglycemia Protocol Piperacillin Sod/Tazobactam Sod (Zosyn 3.375 Gm Iv Premix) 3.375 gm in 50 mls @ 100 mls/hr IVPB Q6H [facility] PRN Reason: Protocol Last Admin: 01/04/18 05:25 Dose: 100 mls/hr Vancomycin HCl 1,200 mg/ (Sodium Chloride) 500 mls @ 250 mls/hr IVPB Q12H [facility] PRN Reason: Protocol Last Admin: 01/04/18 06:06 Dose: 250 mls/hr Lactated Ringer's (Lactated Ringer's) 1,000 mls @ 100 mls/hr IV .Q10H [facility] Last Admin: 01/03/18 20:05 Dose: Not Given Insulin Aspart (Novolog) 0 unit SC ACHS [facility] PRN Reason: Protocol Last Admin: 01/04/18 08:23 Dose: Not Given Metformin HCl (Glucophage) 500 mg PO BID [facility] Last Admin: 01/03/18 17:16 Dose: 500 mg Oxycodone/Acetaminophen (Percocet 5/325 Mg Tab) 1 tab PO Q6H PRN PRN Reason: Pain, moderate (4-7) Stop: 01/06/18 10:14 Last Admin: 01/03/18 19:52 Dose: 1 tab Oxycodone/Acetaminophen (Percocet 5/325 Mg Tab) 2 tab PO Q6H PRN PRN Reason: Pain, severe (8-10) Stop: 01/06/18 10:14 Pantoprazole Sodium (Protonix Ec Tab) 40 mg PO DAILY [facility] Last Admin: 01/03/18 10:32 Dose: Not Given Pioglitazone HCl (Actos) 15 mg PO BID [facility] Last Admin: 01/03/18 17:16 Dose: 15 mg Saccharomyces Boulardii (Florastor) 250 mg PO BID [facility] Last Admin: 01/03/18 17:16 Dose: 250 mg - Labs Labs: 01/04/18 07:48 01/04/18 07:48 PT 11.5 SECONDS (9.7-12.2) 01/03/18 08:22 INR 1.1 01/03/18 08:22 APTT 37 SECONDS (21-34) H 01/03/18 08:22 - Additional Findings Additional findings: - Constitutional Appears: Non-toxic, No Acute Distress - Head Exam Head Exam: ATRAUMATIC, NORMOCEPHALIC - Eye Exam Eye Exam: EOMI - ENT Exam ENT Exam: Mucous Membranes Moist - Respiratory Exam Respiratory Exam: NORMAL BREATHING PATTERN - Cardiovascular Exam Cardiovascular Exam: +S1, +S2 - GI/Abdominal Exam GI & Abdominal Exam: Soft, Normal bowel sound - small abscess improving (sacral area) - Extremities Exam Additional comments: Pedal pulses absent left hallux necrotic ulcer, feet warm bilaterally 1st toe wrapped in gauze dressing clean, dry, no active drainage appreciated - Neurological Exam Neurological Exam: Alert, Awake - Psychiatric Exam Psychiatric exam: Normal Affect, Normal Mood - Skin Skin Exam: Dry, Intact Assessment and Plan - Assessment and Plan (Free Text) Assessment: Left necrotic toe ulcer/osteomyelitis -S/p left foot hallux amputation day 1 -Admit to med/surg -CT angio shows mild to moderate atherosclerotic disease. Diffuse atherosclerotic calcification, especially posterior tibial arteries -Venous doppler negative for DVT -MRI Left Lower ext (12/27/17): Findings concerning for osteomyelitis of distal phalanx of first toe. -Arterial PVR positive for B/L LE arterial calc and small vessel disease -Left toe x-ray shows cortical irregularity distal phalanx 1st digit. Soft tissue swelling. Suspicious for acute osteomyelitis -Vascular surgery consulted, no surgical intervention recommended -ESR 30, Afebrile, no leukocytosis ID consulted, Dr. Blancas help appreciated - Zosyn 3.375gm Q8 (Day 7, started 12/23) - Vancomycin 1gm Q12h (Day 12,started 12/22) - Santyl - Tylenol 650mg PO Q6H for fever Podiatry consult, Dr. Logan - help appreciated - amputation of great toe today (01/03) Pre-op labs: EKG (12/28/17): NSR @ 62bpm, 1st degree AV block, prolonged QTc (487 msec), CXR (12/26/17): NAD Coags: INR 1.1, PTT 36 Dr. Sims/Refugio, brand sales consultant for clearance prior to surgery - PATIENT IS ACCEPTABLE RISK FOR URGENT SURGERY. HE IS ABLE TO PERFORM >4 METS AT BASELINE. - HE DOES NOT REQUIRE ANY FURTHER CARDIAC WORK UP. EKG IS NORMAL. Padilla score: 0.2% risk of SC or cardiac arrest, intraoperatively or up to 30 days post-op Patient is at minimal risk for non-cardiac surgery. Surgeon/Anesthesia to explain risks of procedure further to patient. Blood culture (12/22/17): No growth x 5 days Prolonged QTc EKG (12/28/17): NSR @ 62bpm, 1st degree AV block, prolonged QTc (487 msec) EKG (01/02/18): Sinus elver @ 68 bpm; 1st degree AV block; prolonged QTc (473) Per Cardio: HE DOES NOT REQUIRE ANY FURTHER CARDIAC WORK UP. EKG IS NORMAL Sacral abscess Antibiotics as above Wound Care - yola Haro, Gen Surgery - No I&D necessary - Hibclens wash DM Well controlled, A1c: 7.0 -Metformin 500mg BID -Glimepiride 2mg BID -Pioglitazone 500mg BID -ISS -Finger stick ACHS -Hypoglycemia protocol HTN Well controlled -Amlodipine 10mg Prophylactic measures -Lovenox HELD for procedure -Protonix -Florastor Disposition: Patient is cleared to be discharged from podiatry standpoint. Patient will continue Vancomycin and Zosyn for 6 more days per ID. Patient is to be discharged to [facility] tomorrow. All management per Dr. Earnestine Deluna
[2018-01-04] MEDS: Saccharomyces Boulardi 250 mg Cap PO SCH ×2 (10:22→17:28)
[2018-01-04] MEDS: Collagenase 250 Units/gm Ointment(30 gm) TOP SCH (10:24)
--- NOTE | 2018-01-04 11:52 | CP.PCM.PN ---
Subjective - Date & Time of Evaluation Date of Evaluation: 01/04/18 Time of Evaluation: 11:47 - Subjective Subjective: Podiatry progress note for Dr. Logan 62 yo male patient was seen at bedside 1 day s.p left foot hallux amputation. Patient is seen resting comfortably in bed, in NAD, and AA0x3. Denies acute overnight events. Patient reports mild pain to his big toe. Dressing is clean, dry, and intact. Patient denies of any N/V/F/C or SOB today. No new pedal complaints Objective - Vital Signs/Intake and Output Vital Signs (last 24 hours): Temp Pulse Resp BP Pulse Ox 97.6 F 60 20 162/77 H 96 01/04/18 07:33 01/04/18 07:33 01/04/18 07:33 01/04/18 07:33 01/04/18 07:33 Intake and Output: 01/04/18 01/04/18 06:59 18:59 Intake Total 1550 Output Total 850 Balance 700 - Medications Medications: Current Medications Acetaminophen (Tylenol 325mg Tab) 650 mg PO Q6 PRN PRN Reason: Fever >100.4 F Acetaminophen (Tylenol 325mg Tab) 650 mg PO Q6 PRN PRN Reason: Pain, Mild (1-3) Amlodipine Besylate (Norvasc) 10 mg PO DAILY [facility] Last Admin: 01/04/18 10:23 Dose: 10 mg Collagenase (Santyl) 1 gm TOP DAILY [facility] Last Admin: 01/04/18 10:24 Dose: 1 applic Dextrose (Dextrose 50% Inj) 0 ml IVP .STAT PRN; Protocol PRN Reason: Hypoglycemia Protocol Dextrose (Glutose 15) 15 gm PO .ONCE PRN; Protocol PRN Reason: Hypoglycemia Protocol Glimepiride (Amaryl) 2 mg PO BID [facility] Last Admin: 01/04/18 10:00 Dose: 2 mg Glucagon (Glucagen Diagnostic Kit) 1 mg IM .STAT PRN; Protocol PRN Reason: Hypoglycemia Protocol Piperacillin Sod/Tazobactam Sod (Zosyn 3.375 Gm Iv Premix) 3.375 gm in 50 mls @ 100 mls/hr IVPB Q6H DIA PRN Reason: Protocol Last Admin: 01/04/18 11:39 Dose: 100 mls/hr Vancomycin HCl 1,200 mg/ (Sodium Chloride) 500 mls @ 250 mls/hr IVPB Q12H [facility] PRN Reason: Protocol Last Admin: 01/04/18 06:06 Dose: 250 mls/hr Lactated Ringer's (Lactated Ringer's) 1,000 mls @ 100 mls/hr IV .Q10H [facility] Last Admin: 01/03/18 20:05 Dose: Not Given Insulin Aspart (Novolog) 0 unit SC ACHS [facility] PRN Reason: Protocol Last Admin: 01/04/18 11:30 Dose: 3 unit Metformin HCl (Glucophage) 500 mg PO BID [facility] Last Admin: 01/04/18 10:00 Dose: 500 mg Oxycodone/Acetaminophen (Percocet 5/325 Mg Tab) 1 tab PO Q6H PRN PRN Reason: Pain, moderate (4-7) Stop: 01/06/18 10:14 Last Admin: 01/03/18 19:52 Dose: 1 tab Oxycodone/Acetaminophen (Percocet 5/325 Mg Tab) 2 tab PO Q6H PRN PRN Reason: Pain, severe (8-10) Stop: 01/06/18 10:14 Pantoprazole Sodium (Protonix Ec Tab) 40 mg PO DAILY [facility] Last Admin: 01/04/18 10:00 Dose: 40 mg Pioglitazone HCl (Actos) 15 mg PO BID [facility] Last Admin: 01/04/18 10:00 Dose: 15 mg Saccharomyces Boulardii (Florastor) 250 mg PO BID [facility] Last Admin: 01/04/18 10:22 Dose: 250 mg - Labs Labs: 01/04/18 07:48 01/04/18 07:48 PT 11.5 SECONDS (9.7-12.2) 01/03/18 08:22 INR 1.1 01/03/18 08:22 APTT 37 SECONDS (21-34) H 01/03/18 08:22 - Constitutional Appears: Well, Non-toxic, No Acute Distress - Extremities Exam Additional comments: left lower extremity focused: Left lower extremity exam VASC: Nonpalpable DP, PT noted to Left foot. Palpable DP and PT noted to Right foot NEURO: Gross sensation intact Derm: left hallux surgical incision site well coapated, sutures intact, no dehiscence, no purulence, no drainage, no malodor, no fluctuance, no ascending cellulitis, no acute clinical signs of infection ortho: mild pain on palpation along surgical incision site - Neurological Exam Neurological Exam: Alert, Awake, Oriented x3 - Psychiatric Exam Psychiatric exam: Normal Affect Assessment and Plan - Assessment and Plan (Free Text) Assessment: 62 yo male patient seen at bedside 1 day s.p left hallux amputation Plan: patient evaluated and chart reviewed discussed in detail with attending Dr. Logan labs and vitals reviewed; afebrile, WBC 7.8 cont. abx as per recommended Left foot dressed with Betadine Soaked DSD, cont. wearing surgical shoe patient stable from podiatry standpoint patient instructed to follow up with Dr. Logan at [facility] as outpatient podiatry will continue to monitor while patient remains in house
--- NOTE | 2018-01-04 13:48 | CP.PCM.PN ---
Subjective - Date & Time of Evaluation Date of Evaluation: 01/04/18 Time of Evaluation: 13:45 - Subjective Subjective: Events reviewed. Objective - Vital Signs/Intake and Output Vital Signs (last 24 hours): Temp Pulse Resp BP Pulse Ox 97.6 F 60 20 162/77 H 96 01/04/18 07:33 01/04/18 07:33 01/04/18 07:33 01/04/18 07:33 01/04/18 07:33 Intake and Output: 01/04/18 01/04/18 06:59 18:59 Intake Total 1550 Output Total 850 Balance 700 - Medications Medications: Current Medications Acetaminophen (Tylenol 325mg Tab) 650 mg PO Q6 PRN PRN Reason: Fever >100.4 F Acetaminophen (Tylenol 325mg Tab) 650 mg PO Q6 PRN PRN Reason: Pain, Mild (1-3) Amlodipine Besylate (Norvasc) 10 mg PO DAILY [facility] Last Admin: 01/04/18 10:23 Dose: 10 mg Collagenase (Santyl) 1 gm TOP DAILY [facility] Last Admin: 01/04/18 10:24 Dose: 1 applic Dextrose (Dextrose 50% Inj) 0 ml IVP .STAT PRN; Protocol PRN Reason: Hypoglycemia Protocol Dextrose (Glutose 15) 15 gm PO .ONCE PRN; Protocol PRN Reason: Hypoglycemia Protocol Glimepiride (Amaryl) 2 mg PO BID [facility] Last Admin: 01/04/18 10:00 Dose: 2 mg Glucagon (Glucagen Diagnostic Kit) 1 mg IM .STAT PRN; Protocol PRN Reason: Hypoglycemia Protocol Piperacillin Sod/Tazobactam Sod (Zosyn 3.375 Gm Iv Premix) 3.375 gm in 50 mls @ 100 mls/hr IVPB Q6H [facility] PRN Reason: Protocol Last Admin: 01/04/18 11:39 Dose: 100 mls/hr Vancomycin HCl 1,200 mg/ (Sodium Chloride) 500 mls @ 250 mls/hr IVPB Q12H [facility] PRN Reason: Protocol Last Admin: 01/04/18 06:06 Dose: 250 mls/hr Lactated Ringer's (Lactated Ringer's) 1,000 mls @ 100 mls/hr IV .Q10H [facility] Last Admin: 01/03/18 20:05 Dose: Not Given Insulin Aspart (Novolog) 0 unit SC ACHS [facility] PRN Reason: Protocol Last Admin: 01/04/18 11:30 Dose: 3 unit Metformin HCl (Glucophage) 500 mg PO BID [facility] Last Admin: 01/04/18 10:00 Dose: 500 mg Oxycodone/Acetaminophen (Percocet 5/325 Mg Tab) 1 tab PO Q6H PRN PRN Reason: Pain, moderate (4-7) Stop: 01/06/18 10:14 Last Admin: 01/03/18 19:52 Dose: 1 tab Oxycodone/Acetaminophen (Percocet 5/325 Mg Tab) 2 tab PO Q6H PRN PRN Reason: Pain, severe (8-10) Stop: 01/06/18 10:14 Pantoprazole Sodium (Protonix Ec Tab) 40 mg PO DAILY [facility] Last Admin: 01/04/18 10:00 Dose: 40 mg Pioglitazone HCl (Actos) 15 mg PO BID [facility] Last Admin: 01/04/18 10:00 Dose: 15 mg Saccharomyces Boulardii (Florastor) 250 mg PO BID [facility] Last Admin: 01/04/18 10:22 Dose: 250 mg - Labs Labs: 01/04/18 07:48 01/04/18 07:48 PT 11.5 SECONDS (9.7-12.2) 01/03/18 08:22 INR 1.1 01/03/18 08:22 APTT 37 SECONDS (21-34) H 01/03/18 08:22 - Constitutional Appears: Well, Non-toxic - Respiratory Exam Respiratory Exam: Clear to Ausculation Bilateral, NORMAL BREATHING PATTERN - Cardiovascular Exam Cardiovascular Exam: REGULAR RHYTHM, RRR, +S1, +S2. absent: JVD Additional comments: Amputated left great toe, Dressing with dry blood intact. - GI/Abdominal Exam GI & Abdominal Exam: Normal Bowel Sounds. absent: Organomegaly Assessment and Plan - Assessment and Plan (Free Text) Assessment: EKG images viewed by me from 01/03/18: NSR, QT is corrected to be normal, no st t changes 62 year old man with CLI with osteomyelitis ABX, s/p amputation of left 1st toe ; POD #1. No acute events HTN is chronic and stable on amlodipine DM is chronic and stable on current PO anti diabetic meds ASHD I would add high dose statin and an antiplatelet. Please call back as needed. Follow up with Dr. Huff as an outpatient for snf CAD care.
--- NOTE | 2018-01-04 18:15 | CP.PCM.PN ---
Subjective - Date & Time of Evaluation Date of Evaluation: 01/04/18 Time of Evaluation: 07:00 - Subjective Subjective: clinically same Objective - Vital Signs/Intake and Output Vital Signs (last 24 hours): Temp Pulse Resp BP Pulse Ox 97.6 F 60 20 162/77 H 96 01/04/18 07:33 01/04/18 07:33 01/04/18 07:33 01/04/18 07:33 01/04/18 07:33 Intake and Output: 01/04/18 01/04/18 06:59 18:59 Intake Total 1550 600 Output Total 850 Balance 700 600 - Medications Medications: Current Medications Acetaminophen (Tylenol 325mg Tab) 650 mg PO Q6 PRN PRN Reason: Fever >100.4 F Acetaminophen (Tylenol 325mg Tab) 650 mg PO Q6 PRN PRN Reason: Pain, Mild (1-3) Amlodipine Besylate (Norvasc) 10 mg PO DAILY [facility] Last Admin: 01/04/18 10:23 Dose: 10 mg Collagenase (Santyl) 1 gm TOP DAILY [facility] Last Admin: 01/04/18 10:24 Dose: 1 applic Dextrose (Dextrose 50% Inj) 0 ml IVP .STAT PRN; Protocol PRN Reason: Hypoglycemia Protocol Dextrose (Glutose 15) 15 gm PO .ONCE PRN; Protocol PRN Reason: Hypoglycemia Protocol Glimepiride (Amaryl) 2 mg PO BID [facility] Last Admin: 01/04/18 17:22 Dose: 2 mg Glucagon (Glucagen Diagnostic Kit) 1 mg IM .STAT PRN; Protocol PRN Reason: Hypoglycemia Protocol Piperacillin Sod/Tazobactam Sod (Zosyn 3.375 Gm Iv Premix) 3.375 gm in 50 mls @ 100 mls/hr IVPB Q6H [facility] PRN Reason: Protocol Last Admin: 01/04/18 17:23 Dose: 100 mls/hr Vancomycin HCl 1,200 mg/ (Sodium Chloride) 500 mls @ 250 mls/hr IVPB Q12H [facility] PRN Reason: Protocol Last Admin: 01/04/18 17:46 Dose: 250 mls/hr Insulin Aspart (Novolog) 0 unit SC ACHS [facility] PRN Reason: Protocol Last Admin: 01/04/18 17:22 Dose: 2 unit Metformin HCl (Glucophage) 500 mg PO BID [facility] Last Admin: 01/04/18 17:22 Dose: 500 mg Oxycodone/Acetaminophen (Percocet 5/325 Mg Tab) 1 tab PO Q6H PRN PRN Reason: Pain, moderate (4-7) Stop: 01/06/18 10:14 Last Admin: 01/03/18 19:52 Dose: 1 tab Oxycodone/Acetaminophen (Percocet 5/325 Mg Tab) 2 tab PO Q6H PRN PRN Reason: Pain, severe (8-10) Stop: 01/06/18 10:14 Pantoprazole Sodium (Protonix Ec Tab) 40 mg PO DAILY [facility] Last Admin: 01/04/18 10:00 Dose: 40 mg Pioglitazone HCl (Actos) 15 mg PO BID [facility] Last Admin: 01/04/18 17:22 Dose: 15 mg Saccharomyces Boulardii (Florastor) 250 mg PO BID [facility] Last Admin: 01/04/18 17:28 Dose: 250 mg - Labs Labs: 01/04/18 07:48 01/04/18 07:48 PT 11.5 SECONDS (9.7-12.2) 01/03/18 08:22 INR 1.1 01/03/18 08:22 APTT 37 SECONDS (21-34) H 01/03/18 08:22 - Constitutional Appears: Well - Head Exam Head Exam: ATRAUMATIC, NORMAL INSPECTION, NORMOCEPHALIC - Eye Exam Eye Exam: EOMI, Normal appearance, PERRL Pupil Exam: NORMAL ACCOMODATION, PERRL - ENT Exam ENT Exam: Mucous Membranes Moist, Normal Exam - Neck Exam Neck Exam: Full ROM, Normal Inspection. absent: Lymphadenopathy - Respiratory Exam Respiratory Exam: Decreased Breath Sounds - Cardiovascular Exam Cardiovascular Exam: REGULAR RHYTHM, +S1, +S2 - GI/Abdominal Exam GI & Abdominal Exam: Soft, Diminished Bowel Sounds - Rectal Exam Rectal Exam: Deferred
--- NOTE | 2018-01-04 23:59 | CARD ---
APPROVED REPORT EKG Measurement Heart [id number] <Conclusion> Sinus bradycardia with 1st degree AV block Nonspecific T wave abnormality Prolonged QT Abnormal ECG
--- NOTE | 2018-01-05 02:22 | OP ---
PROCEDURE DATE: 01/03/2018 AGE: 62. SEX: Male. SURGEON: Yessi Logan DPM AUTOMATION DEVELOPER: Ashley Perez DPM, PGY-I. ANESTHESIOLOGISTS: Adria Shaffer MD/Mason Louis CRNA. PREOPERATIVE DIAGNOSIS: Left foot hallux eschar with osteomyelitis. POSTOPERATIVE DIAGNOSIS: Left foot hallux eschar with osteomyelitis. OPERATION PERFORMED: Left foot partial hallux amputation. INDICATIONS: The patient is a 62-year-old male with the above diagnosis. The patient has exhausted all conservative treatments at this time and now requires surgical intervention. The patient signed the consent after careful explanation of risks, benefits, complications and alternatives for surgical procedure. No guarantees were given nor implied. N.p.o. status was confirmed prior to taking the patient to the operating room. PREPARATION: The patient was brought into the operating room and placed on the operating room table in a supine position. A time-out was performed for identification of the correct patient and procedure. After induction of IV sedation, the patient received a total of 14 mL of 1:1 mixture of 2% lidocaine plain and 0.5% Marcaine plain in a local block fashion to the left hallux. The left foot was then prepped ad draped in normal sterile manner, and the procedure began. No tourniquet was utilized during the procedure. DESCRIPTION OF PROCEDURE: Attention was then drawn to the distal tip of the right hallux where a dark necrotic eschar was noted measuring approximately 2 cm x 1.8 cm. A circumferential incision was made using a sterile #15 blade at the level of the interphalangeal joint dorsally extending distally and plantarly around the hallux. The incision was extended down to the subcutaneous layers to the level of bone extending into the interphalangeal joint. Using a bone clamp to stabilize the hallux, the distal phalanx was then disarticulated from the foot at the level of the IPJ. Using a fresh #15 blade, all necrotic and nonviable tissue was then excisionally debrided from the surgical site with additional soft tissue removed to allow for adequate skin closure without tension. The wound was then copiously flushed with sterile saline using a bulb syringe. The distal phalanx of the left hallux was sent off for pathology at this time. At this time, the surgical site was then sutured closed with 2-0 Prolene and 3-0 Prolene sutures. The surgical site was then dressed with Betadine-soaked Adaptic, 4x4 gauze and a dry sterile dressing. POSTOPERATIVE CONDITION: The patient tolerated the anesthesia and procedure well, was escorted to the recovery room with vital signs stable and neurovascular status intact to the left foot. The patient is to be allowed weightbearing with the use of a surgical shoe. The patient will remain in-house, and Podiatry will continue to follow on the floor. Upon discharge, the patient is instructed to follow up with Dr. Logan at the [facility]. Ashley Perez DPM Yessi Logan DPM
[2018-01-05] MEDS: Piperacill/Tazo 3.375gm in Dex 3.375 GM/50 ML BAG IVPB SCH ×3 (05:18→17:30)
[2018-01-05 06:59] LABS: BASO # 0.1 K/uL (0.0-0.2); BASO % 1.2 % (0.0-2.0); EOS # 0.4 K/uL (0.0-0.7); EOS % 4.2 % (0.0-4.0); HEMOGLOBIN 11.7 g/dL (12.0-18.0); LYMPH # 1.4 K/uL (1.0-4.3); LYMPH % 15.9 % (20.0-40.0); MEAN CELL VOLUME 87.8 fL (80.0-94.0); MEAN CORPUSCULAR HEMOGLOBIN 31.1 pg (27.0-31.0); MEAN CORPUSCULAR HGB CONC 35.5 g/dL (33.0-37.0); MEAN PLATELET VOLUME 6.7 fL (7.2-11.7); MONO # 0.7 K/uL (0.0-0.8); MONO % 7.3 % (0.0-10.0); NEUT # 6.4 K/uL (1.8-7.0); NEUT % 71.4 % (50.0-75.0); RBC 3.75 Mil/uL (4.40-5.90); RED CELL DISTRIBUTION WIDTH 14.2 % (11.5-14.5); WHITE BLOOD COUNT 8.9 K/uL (4.8-10.8)
--- NOTE | 2018-01-05 07:26 | CP.PCM.PN ---
Subjective - Date & Time of Evaluation Date of Evaluation: 01/05/18 Time of Evaluation: 07:24 - Subjective Subjective: PGY-[address] Deluna's service: Patients seen and examined at bedside. No acute events reported overnight. Patient is resting in bed comfortably in no acute distress. Patient denies fever , chills, headache, shortness of breath, chest pain, nausea, vomiting, or diarrhea. Objective - Vital Signs/Intake and Output Vital Signs (last 24 hours): Temp Pulse Resp BP Pulse Ox 98.8 F 69 20 160/79 H 95 01/04/18 23:35 01/04/18 23:35 01/04/18 23:35 01/04/18 23:35 01/04/18 23:35 Intake and Output: 01/05/18 01/05/18 06:59 18:59 Intake Total 1590 Output Total 600 Balance 990 - Medications Medications: Current Medications Acetaminophen (Tylenol 325mg Tab) 650 mg PO Q6 PRN PRN Reason: Fever >100.4 F Acetaminophen (Tylenol 325mg Tab) 650 mg PO Q6 PRN PRN Reason: Pain, Mild (1-3) Amlodipine Besylate (Norvasc) 10 mg PO DAILY [facility] Last Admin: 01/04/18 10:23 Dose: 10 mg Collagenase (Santyl) 1 gm TOP DAILY [facility] Last Admin: 01/04/18 10:24 Dose: 1 applic Dextrose (Dextrose 50% Inj) 0 ml IVP .STAT PRN; Protocol PRN Reason: Hypoglycemia Protocol Dextrose (Glutose 15) 15 gm PO .ONCE PRN; Protocol PRN Reason: Hypoglycemia Protocol Glimepiride (Amaryl) 2 mg PO BID [facility] Last Admin: 01/04/18 17:22 Dose: 2 mg Glucagon (Glucagen Diagnostic Kit) 1 mg IM .STAT PRN; Protocol PRN Reason: Hypoglycemia Protocol Piperacillin Sod/Tazobactam Sod (Zosyn 3.375 Gm Iv Premix) 3.375 gm in 50 mls @ 100 mls/hr IVPB Q6H [facility] PRN Reason: Protocol Last Admin: 01/05/18 05:18 Dose: 100 mls/hr Vancomycin HCl 1,200 mg/ (Sodium Chloride) 500 mls @ 250 mls/hr IVPB Q12H [facility] PRN Reason: Protocol Last Admin: 01/05/18 06:09 Dose: 250 mls/hr Insulin Aspart (Novolog) 0 unit SC ACHS [facility] PRN Reason: Protocol Last Admin: 01/04/18 21:19 Dose: Not Given Metformin HCl (Glucophage) 500 mg PO BID [facility] Last Admin: 01/04/18 17:22 Dose: 500 mg Oxycodone/Acetaminophen (Percocet 5/325 Mg Tab) 1 tab PO Q6H PRN PRN Reason: Pain, moderate (4-7) Stop: 01/06/18 10:14 Last Admin: 01/03/18 19:52 Dose: 1 tab Oxycodone/Acetaminophen (Percocet 5/325 Mg Tab) 2 tab PO Q6H PRN PRN Reason: Pain, severe (8-10) Stop: 01/06/18 10:14 Pantoprazole Sodium (Protonix Ec Tab) 40 mg PO DAILY [facility] Last Admin: 01/04/18 10:00 Dose: 40 mg Pioglitazone HCl (Actos) 15 mg PO BID [facility] Last Admin: 01/04/18 17:22 Dose: 15 mg Saccharomyces Boulardii (Florastor) 250 mg PO BID [facility] Last Admin: 01/04/18 17:28 Dose: 250 mg - Labs Labs: 01/05/18 06:56 01/04/18 07:48 PT 11.5 SECONDS (9.7-12.2) 01/03/18 08:22 INR 1.1 01/03/18 08:22 APTT 37 SECONDS (21-34) H 01/03/18 08:22 - Additional Findings Additional findings: - Constitutional Appears: Non-toxic, No Acute Distress - Head Exam Head Exam: ATRAUMATIC, NORMOCEPHALIC - Eye Exam Eye Exam: EOMI - ENT Exam ENT Exam: Mucous Membranes Moist - Respiratory Exam Respiratory Exam: NORMAL BREATHING PATTERN - Cardiovascular Exam Cardiovascular Exam: +S1, +S2 - GI/Abdominal Exam GI & Abdominal Exam: Soft, Normal bowel sound - small abscess improving (sacral area) - Extremities Exam Additional comments: Pedal pulses absent left hallux necrotic ulcer, feet warm bilaterally 1st toe wrapped in gauze dressing clean, dry, no active drainage appreciated - Neurological Exam Neurological Exam: Alert, Awake - Psychiatric Exam Psychiatric exam: Normal Affect, Normal Mood - Skin Skin Exam: Dry, Intact Assessment and Plan - Assessment and Plan (Free Text) Plan: Left necrotic toe ulcer/osteomyelitis -S/p left foot hallux amputation day 1 -Admit to med/surg -CT angio shows mild to moderate atherosclerotic disease. Diffuse atherosclerotic calcification, especially posterior tibial arteries -Venous doppler negative for DVT -MRI Left Lower ext (12/27/17): Findings concerning for osteomyelitis of distal phalanx of first toe. -Arterial PVR positive for B/L LE arterial calc and small vessel disease -Left toe x-ray shows cortical irregularity distal phalanx 1st digit. Soft tissue swelling. Suspicious for acute osteomyelitis -Vascular surgery consulted, no surgical intervention recommended -ESR 30, Afebrile, no leukocytosis ID consulted, Dr. Blancas help appreciated - Zosyn 3.375gm Q8 (Day 7, started 12/23) - Vancomycin 1gm Q12h (Day 12,started 12/22) - Santyl - Tylenol 650mg PO Q6H for fever Podiatry consult, Dr. Logan - help appreciated - amputation of great toe (01/03) Pre-op labs: EKG (12/28/17): NSR @ 62bpm, 1st degree AV block, prolonged QTc (487 msec), CXR (12/26/17): NAD Coags: INR 1.1, PTT 36 Dr. Sims/Refugio, database reporting consultant for clearance prior to surgery - PATIENT IS ACCEPTABLE RISK FOR URGENT SURGERY. HE IS ABLE TO PERFORM >4 METS AT BASELINE. - HE DOES NOT REQUIRE ANY FURTHER CARDIAC WORK UP. EKG IS NORMAL. Padilla score: 0.2% risk of MT or cardiac arrest, intraoperatively or up to 30 days post-op Patient is at minimal risk for non-cardiac surgery. Surgeon/Anesthesia to explain risks of procedure further to patient. Blood culture (12/22/17): No growth x 5 days Prolonged QTc EKG (12/28/17): NSR @ 62bpm, 1st degree AV block, prolonged QTc (487 msec) EKG (01/02/18): Sinus elver @ 68 bpm; 1st degree AV block; prolonged QTc (473) Per Cardio: HE DOES NOT REQUIRE ANY FURTHER CARDIAC WORK UP. EKG IS NORMAL Sacral abscess Antibiotics as above Wound Care - santyl Dr. Haro, Gen Surgery - No I&D necessary - Hibclens wash DM Well controlled, A1c: 7.0 -Metformin 500mg BID -Glimepiride 2mg BID -Pioglitazone 500mg BID -ISS -Finger stick ACHS -Hypoglycemia protocol HTN Well controlled -Amlodipine 10mg Prophylactic measures -Lovenox HELD for procedure -Protonix -Florastor Disposition: Patient is clear for discharge from podiatry standpoint. Patient will continue Vancomycin and Zosyn for 6 more days per ID. Patient is to be discharged to [facility]. All management per Dr. Earnestine Deluna
[2018-01-05] MEDS: (Novolog) Insulin Aspart, Recombinant 100 u/ml 10 ml vial SC SCH ×3 (08:24→17:06)
[2018-01-05 08:28] LABS: ALBUMIN 3.4 g/dL (3.5-5.0); ALT/SGPT 17 U/L (21-72); AST/SGOT 29 U/L (17-59); BLOOD UREA NITROGEN 7 mg/dL (9-20); CALCIUM 8.7 mg/dl (8.6-10.4); GFR AFRICAN-AMERICAN > 60; GFR NON-AFRICAN AMERICAN > 60
[2018-01-05 08:42] VITALS: O2SAT 98
[2018-01-05] MEDS: Pantoprazole 40 mg EC Tab PO SCH (09:58)
[2018-01-05] MEDS: Saccharomyces Boulardi 250 mg Cap PO SCH ×2 (09:59→17:05)
[2018-01-05] MEDS: Collagenase 250 Units/gm Ointment(30 gm) TOP SCH (10:00)
--- NOTE | 2018-01-05 13:59 | CP.PCM.PN ---
Subjective - Date & Time of Evaluation Date of Evaluation: 01/05/18 Time of Evaluation: 01:40 - Subjective Subjective: dictated patient will need four weeks treatment with Vancomycin IV at rehab Objective - Vital Signs/Intake and Output Vital Signs (last 24 hours): Temp Pulse Resp BP Pulse Ox 98.8 F 75 20 130/58 L 98 01/05/18 08:00 01/05/18 08:00 01/05/18 08:00 01/05/18 08:00 01/05/18 08:00 Intake and Output: 01/05/18 01/05/18 06:59 18:59 Intake Total 1590 Output Total 600 Balance 990 - Medications Medications: Current Medications Acetaminophen (Tylenol 325mg Tab) 650 mg PO Q6 PRN PRN Reason: Fever >100.4 F Acetaminophen (Tylenol 325mg Tab) 650 mg PO Q6 PRN PRN Reason: Pain, Mild (1-3) Amlodipine Besylate (Norvasc) 10 mg PO DAILY [facility] Last Admin: 01/05/18 09:58 Dose: 10 mg Collagenase (Santyl) 1 gm TOP DAILY [facility] Last Admin: 01/05/18 10:00 Dose: 1 applic Dextrose (Dextrose 50% Inj) 0 ml IVP .STAT PRN; Protocol PRN Reason: Hypoglycemia Protocol Dextrose (Glutose 15) 15 gm PO .ONCE PRN; Protocol PRN Reason: Hypoglycemia Protocol Glimepiride (Amaryl) 2 mg PO BID [facility] Last Admin: 01/05/18 09:59 Dose: 2 mg Glucagon (Glucagen Diagnostic Kit) 1 mg IM .STAT PRN; Protocol PRN Reason: Hypoglycemia Protocol Piperacillin Sod/Tazobactam Sod (Zosyn 3.375 Gm Iv Premix) 3.375 gm in 50 mls @ 100 mls/hr IVPB Q6H [facility] PRN Reason: Protocol Last Admin: 01/05/18 13:08 Dose: 100 mls/hr Vancomycin HCl 1,200 mg/ (Sodium Chloride) 500 mls @ 250 mls/hr IVPB Q12H [facility] PRN Reason: Protocol Last Admin: 01/05/18 06:09 Dose: 250 mls/hr Insulin Aspart (Novolog) 0 unit SC ACHS [facility] PRN Reason: Protocol Last Admin: 01/05/18 11:20 Dose: 1 unit Metformin HCl (Glucophage) 500 mg PO BID [facility] Last Admin: 01/05/18 09:58 Dose: 500 mg Oxycodone/Acetaminophen (Percocet 5/325 Mg Tab) 1 tab PO Q6H PRN PRN Reason: Pain, moderate (4-7) Stop: 01/06/18 10:14 Last Admin: 01/03/18 19:52 Dose: 1 tab Oxycodone/Acetaminophen (Percocet 5/325 Mg Tab) 2 tab PO Q6H PRN PRN Reason: Pain, severe (8-10) Stop: 01/06/18 10:14 Pantoprazole Sodium (Protonix Ec Tab) 40 mg PO DAILY [facility] Last Admin: 01/05/18 09:58 Dose: 40 mg Pioglitazone HCl (Actos) 15 mg PO BID [facility] Last Admin: 01/05/18 09:58 Dose: 15 mg Saccharomyces Boulardii (Florastor) 250 mg PO BID [facility] Last Admin: 01/05/18 09:59 Dose: 250 mg - Labs Labs: 01/05/18 06:56 01/05/18 06:56 PT 11.5 SECONDS (9.7-12.2) 01/03/18 08:22 INR 1.1 01/03/18 08:22 APTT 37 SECONDS (21-34) H 01/03/18 08:22
--- NOTE | 2018-01-05 15:05 | CP.PCM.PN ---
Subjective - Date & Time of Evaluation Date of Evaluation: 01/05/18 Time of Evaluation: 15:02 - Subjective Subjective: Podiatry progress note for Dr. Logan 62 year old male patient was seen at bedside 2 days s.p left foot hallux amputation. Patient seen with Dr. Blancas at bedside. Patient is seen resting comfortably in bed, in NAD, and AA0x3. Denies acute overnight events. Denies of any pain to the hallux today. Dressing is clean, dry, and intact. Patient denies of any N/V/F/C or SOB today. No new pedal complaints Objective - Vital Signs/Intake and Output Vital Signs (last 24 hours): Temp Pulse Resp BP Pulse Ox 98.8 F 75 20 130/58 L 98 01/05/18 08:00 01/05/18 08:00 01/05/18 08:00 01/05/18 08:00 01/05/18 08:00 Intake and Output: 01/05/18 01/05/18 06:59 18:59 Intake Total 1590 530 Output Total 600 800 Balance 990 -270 - Medications Medications: Current Medications Acetaminophen (Tylenol 325mg Tab) 650 mg PO Q6 PRN PRN Reason: Fever >100.4 F Acetaminophen (Tylenol 325mg Tab) 650 mg PO Q6 PRN PRN Reason: Pain, Mild (1-3) Amlodipine Besylate (Norvasc) 10 mg PO DAILY [facility] Last Admin: 01/05/18 09:58 Dose: 10 mg Collagenase (Santyl) 1 gm TOP DAILY [facility] Last Admin: 01/05/18 10:00 Dose: 1 applic Dextrose (Dextrose 50% Inj) 0 ml IVP .STAT PRN; Protocol PRN Reason: Hypoglycemia Protocol Dextrose (Glutose 15) 15 gm PO .ONCE PRN; Protocol PRN Reason: Hypoglycemia Protocol Glimepiride (Amaryl) 2 mg PO BID [facility] Last Admin: 01/05/18 09:59 Dose: 2 mg Glucagon (Glucagen Diagnostic Kit) 1 mg IM .STAT PRN; Protocol PRN Reason: Hypoglycemia Protocol Piperacillin Sod/Tazobactam Sod (Zosyn 3.375 Gm Iv Premix) 3.375 gm in 50 mls @ 100 mls/hr IVPB Q6H [facility] PRN Reason: Protocol Last Admin: 01/05/18 13:08 Dose: 100 mls/hr Vancomycin HCl 1,200 mg/ (Sodium Chloride) 500 mls @ 250 mls/hr IVPB Q12H [facility] PRN Reason: Protocol Last Admin: 01/05/18 06:09 Dose: 250 mls/hr Insulin Aspart (Novolog) 0 unit SC ACHS [facility] PRN Reason: Protocol Last Admin: 01/05/18 11:20 Dose: 1 unit Metformin HCl (Glucophage) 500 mg PO BID [facility] Last Admin: 01/05/18 09:58 Dose: 500 mg Oxycodone/Acetaminophen (Percocet 5/325 Mg Tab) 1 tab PO Q6H PRN PRN Reason: Pain, moderate (4-7) Stop: 01/06/18 10:14 Last Admin: 01/03/18 19:52 Dose: 1 tab Oxycodone/Acetaminophen (Percocet 5/325 Mg Tab) 2 tab PO Q6H PRN PRN Reason: Pain, severe (8-10) Stop: 01/06/18 10:14 Pantoprazole Sodium (Protonix Ec Tab) 40 mg PO DAILY [facility] Last Admin: 01/05/18 09:58 Dose: 40 mg Pioglitazone HCl (Actos) 15 mg PO BID [facility] Last Admin: 01/05/18 09:58 Dose: 15 mg Saccharomyces Boulardii (Florastor) 250 mg PO BID [facility] Last Admin: 01/05/18 09:59 Dose: 250 mg - Labs Labs: 01/05/18 06:56 01/05/18 06:56 PT 11.5 SECONDS (9.7-12.2) 01/03/18 08:22 INR 1.1 01/03/18 08:22 APTT 37 SECONDS (21-34) H 01/03/18 08:22 - Constitutional Appears: Well, Non-toxic, No Acute Distress - Extremities Exam Additional comments: left lower extremity focused: Left lower extremity exam VASC: Nonpalpable DP, PT noted to Left foot. Palpable DP and PT noted to Right foot NEURO: Gross sensation intact Derm: left hallux surgical incision site well coapated, sutures intact, no dehiscence, no purulence, no drainage, no malodor, no fluctuance, no ascending cellulitis, no acute clinical signs of infection ortho: mild pain on palpation along surgical incision site - Neurological Exam Neurological Exam: Alert, Awake, Oriented x3 - Psychiatric Exam Psychiatric exam: Normal Affect, Normal Mood Assessment and Plan - Assessment and Plan (Free Text) Assessment: 62 yo male patient seen at bedside 2 days s.p left hallux amputation Plan: patient evaluated and chart reviewed discussed in detail with attending Dr. Logan labs and vitals reviewed; afebrile, WBC 8.9 Intra-op wound cultures: G+ cocci cont. abx as per recommended Left foot dressed with Betadine Soaked DSD, cont. wearing surgical shoe patient stable from podiatry standpoint patient instructed to follow up with Dr. Logan at [facility] as outpatient podiatry will continue to monitor while patient remains in house
[2018-01-05 16:23] VITALS: BP 121/61; PULSE 65; TEMP 98.6
--- NOTE | 2018-01-05 18:55 | CP.PCM.PN ---
Subjective - Date & Time of Evaluation Date of Evaluation: 01/05/18 Time of Evaluation: 07:00 - Subjective Subjective: clinically same Objective - Vital Signs/Intake and Output Vital Signs (last 24 hours): Temp Pulse Resp BP Pulse Ox 98.6 F 65 20 121/61 98 01/05/18 16:23 01/05/18 16:23 01/05/18 16:23 01/05/18 16:23 01/05/18 16:23 Intake and Output: 01/05/18 01/05/18 06:59 18:59 Intake Total 1590 530 Output Total 600 800 Balance 990 -270 - Medications Medications: Current Medications Acetaminophen (Tylenol 325mg Tab) 650 mg PO Q6 PRN PRN Reason: Fever >100.4 F Acetaminophen (Tylenol 325mg Tab) 650 mg PO Q6 PRN PRN Reason: Pain, Mild (1-3) Amlodipine Besylate (Norvasc) 10 mg PO DAILY [facility] Last Admin: 01/05/18 09:58 Dose: 10 mg Collagenase (Santyl) 1 gm TOP DAILY [facility] Last Admin: 01/05/18 10:00 Dose: 1 applic Dextrose (Dextrose 50% Inj) 0 ml IVP .STAT PRN; Protocol PRN Reason: Hypoglycemia Protocol Dextrose (Glutose 15) 15 gm PO .ONCE PRN; Protocol PRN Reason: Hypoglycemia Protocol Glimepiride (Amaryl) 2 mg PO BID [facility] Last Admin: 01/05/18 17:04 Dose: 2 mg Glucagon (Glucagen Diagnostic Kit) 1 mg IM .STAT PRN; Protocol PRN Reason: Hypoglycemia Protocol Piperacillin Sod/Tazobactam Sod (Zosyn 3.375 Gm Iv Premix) 3.375 gm in 50 mls @ 100 mls/hr IVPB Q6H [facility] PRN Reason: Protocol Last Admin: 01/05/18 17:30 Dose: 100 mls/hr Vancomycin HCl 1,200 mg/ (Sodium Chloride) 500 mls @ 250 mls/hr IVPB Q12H [facility] PRN Reason: Protocol Last Admin: 01/05/18 18:30 Dose: 250 mls/hr Insulin Aspart (Novolog) 0 unit SC ACHS [facility] PRN Reason: Protocol Last Admin: 01/05/18 17:06 Dose: 2 unit Metformin HCl (Glucophage) 500 mg PO BID [facility] Last Admin: 01/05/18 17:04 Dose: 500 mg Oxycodone/Acetaminophen (Percocet 5/325 Mg Tab) 1 tab PO Q6H PRN PRN Reason: Pain, moderate (4-7) Stop: 01/06/18 10:14 Last Admin: 01/03/18 19:52 Dose: 1 tab Oxycodone/Acetaminophen (Percocet 5/325 Mg Tab) 2 tab PO Q6H PRN PRN Reason: Pain, severe (8-10) Stop: 01/06/18 10:14 Pantoprazole Sodium (Protonix Ec Tab) 40 mg PO DAILY [facility] Last Admin: 01/05/18 09:58 Dose: 40 mg Pioglitazone HCl (Actos) 15 mg PO BID [facility] Last Admin: 01/05/18 17:05 Dose: 15 mg Saccharomyces Boulardii (Florastor) 250 mg PO BID [facility] Last Admin: 01/05/18 17:05 Dose: 250 mg - Labs Labs: 01/05/18 06:56 01/05/18 06:56 PT 11.5 SECONDS (9.7-12.2) 01/03/18 08:22 INR 1.1 01/03/18 08:22 APTT 37 SECONDS (21-34) H 01/03/18 08:22 - Constitutional Appears: Well - Head Exam Head Exam: ATRAUMATIC, NORMAL INSPECTION, NORMOCEPHALIC - Eye Exam Eye Exam: EOMI, Normal appearance, PERRL Pupil Exam: NORMAL ACCOMODATION, PERRL - ENT Exam ENT Exam: Mucous Membranes Moist, Normal Exam - Neck Exam Neck Exam: Full ROM, Normal Inspection. absent: Lymphadenopathy - Respiratory Exam Respiratory Exam: Decreased Breath Sounds - Cardiovascular Exam Cardiovascular Exam: REGULAR RHYTHM, +S1, +S2 - GI/Abdominal Exam GI & Abdominal Exam: Soft, Diminished Bowel Sounds - Rectal Exam Rectal Exam: Deferred
--- NOTE | 2018-01-05 23:20 | PN ---
DATE: 01/05/2018 INFECTIOUS DISEASE FOLLOWUP NOTE SUBJECTIVE: The patient was seen today. He underwent distal toe amputation of the great toe, and this was on 01/04/2018, that is yesterday, and the resident there came to do the dressing today, and the patient denied any complaints. He does have diabetic neuropathy and he has the PICC line. He denied any nausea, vomiting, diarrhea, or any abdominal pain. His PICC line is not bothering him. PHYSICAL EXAMINATION: VITAL SIGNS: T-max is 98.6, pulse 65, blood pressure 121/61, and respirations are 20. HEENT: Atraumatic and normocephalic. NECK: Supple. LUNGS: Clear. No crackles or rales present. HEART: S1 and S2 are regular. ABDOMEN: Soft and nontender. No guarding. No rigidity present. EXTREMITIES: Left great toe, there were sutures with this great toe. After distal amputation, some edema noted on the foot, but the wound was dry, and the patient will need IV antibiotics at rehab for 4 weeks, and we are waiting for the approval with the plan, so that he can get 4 weeks of IV antibiotics, that would be vancomycin. Wound culture is going DPCs, and we are waiting for the ID and sensitivity. At this time, he is on vancomycin and Zosyn. Final wound culture is pending and the patient is on other medications including Tylenol, amlodipine, and dextrose was discontinued. He is on insulin coverage, metformin, oxycodone, pantoprazole, glimepiride, and the antibiotics. I am looking for the antibiotics. He is on Zosyn and he is on vancomycin 1250 every 12 hours, so we will just repeat the random level tomorrow to be sure that this is the dose needed and once he had ID and sensitivity in place, he can go and complete 4 more weeks to cover for us. The patient told that this may help him but he needs to keep his sugars controlled as there can be microangiopathy. Tiffany Blancas MD
== END 2018-01-05 20:30 ==
LOC: C.ER 14:40 → C.9E 17:17 → C.3T 20:17
PROVIDERS: ADMIT Internal Medicine Nephrology; ATTEND Internal Medicine Nephrology
PROC: 02HV33Z Insertion of Infusion Device into Superior Vena Cava, Percutaneous Approach (ICD-10-PCS; 2017-12-27)
PROC: B548ZZA Ultrasonography of Superior Vena Cava, Guidance (ICD-10-PCS; 2017-12-27)
PROC: 0JBR0ZZ Excision of Left Foot Subcutaneous Tissue and Fascia, Open Approach (ICD-10-PCS; 2018-01-03)
PROC: 0Y6Q0Z1 Detachment at Left 1st Toe, High, Open Approach (ICD-10-PCS; principal; 2018-01-03 09:15)
DX: E11.621 Type 2 diabetes mellitus with foot ulcer (principal); E11.52 Type 2 diabetes mellitus with diabetic peripheral angiopathy with gangrene; M86.172 Other acute osteomyelitis, left ankle and foot; I96 Gangrene, not elsewhere classified; E11.40 Type 2 diabetes mellitus with diabetic neuropathy, unspecified; L97.529 Non-pressure chronic ulcer of other part of left foot with unspecified severity; I70.262 Atherosclerosis of native arteries of extremities with gangrene, left leg; E11.65 Type 2 diabetes mellitus with hyperglycemia; E11.69 Type 2 diabetes mellitus with other specified complication; L02.31 Cutaneous abscess of buttock; B95.62 Methicillin resistant Staphylococcus aureus infection as the cause of diseases classified elsewhere; I10 Essential (primary) hypertension; I25.10 Atherosclerotic heart disease of native coronary artery without angina pectoris; I44.0 Atrioventricular block, first degree; I45.81 Long QT syndrome; K21.9 Gastro-esophageal reflux disease without esophagitis; M20.10 Hallux valgus (acquired), unspecified foot; E78.5 Hyperlipidemia, unspecified; E78.00 Pure hypercholesterolemia, unspecified; Z79.4 Long term (current) use of insulin; Z79.899 Other long term (current) drug therapy

== ENCOUNTER 2018-01-24 23:47 | Inpatient (IN) | payer MEDICAID ==
[2018-01-25] MEDS ORDERED: Sodium Chloride 0.9% 1,000 ML IV ONE ×2 (00:11→01:13)
--- NOTE | 2018-01-25 00:19 | C.PDOC ---
History Of Present Illness 62 year old male sent to the ER from [facility] by Dr. Earnestine Deluna for high fever. 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 Denies chest pain, abdominal pain, nausea, or vomiting. Time Seen by Provider: 01/25/18 00:06 Chief Complaint (Nursing): Fever History Per: Patient History/Exam Limitations: no limitations Onset/Duration Of Symptoms: Hrs Current Symptoms Are (Timing): Still Present Location Of Pain: None Sick Contacts (Context): None Associated Symptoms: Fever. denies: Nausea, Vomiting, Other (Chest pain, Abdominal pain) Recent travel outside of the [place]: No Past Medical History Reviewed: Historical Data, Nursing Documentation, Vital Signs Vital Signs: Last Vital Signs Temp 101.2 F H 01/25/18 00:47 Pulse 106 H 01/25/18 00:46 Resp 18 01/25/18 00:46 BP Pulse Ox 98 01/25/18 00:46 - Medical History PMH: Diabetes, HTN, Hypercholesterolemia Other Surgeries: Toe amputation - [facility] Procedures DETACHMENT AT LEFT 1ST TOE, HIGH, OPEN APPROACH (12/22/17) EXCISION OF L FOOT SUBCU/FASCIA, OPEN APPROACH (12/22/17) INSERTION OF INFUSION DEV INTO SUP VENA CAVA, PERC APPROACH (12/22/17) ULTRASONOGRAPHY OF SUPERIOR VENA CAVA, GUIDANCE (12/22/17) Family History: States: Unknown Family Hx - Social History Hx Tobacco Use: No Hx Alcohol Use: No Hx Substance Use: No Review Of Systems Constitutional: Positive for: Fever Cardiovascular: Negative for: Chest Pain, Palpitations Respiratory: Negative for: Cough, Shortness of Breath Gastrointestinal: Negative for: Nausea, Vomiting Skin: Negative for: Rash Neurological: Negative for: Weakness, Numbness Physical Exam - Physical Exam Appears: Non-toxic, In Acute Distress (with visible rigor) Skin: Normal Color, Warm, Dry Head: Atraumatic, Normacephalic Eye(s): bilateral: Normal Inspection Oral Mucosa: Moist Neck: Normal, Supple Chest: Symmetrical, No Tenderness Cardiovascular: Rhythm Regular Respiratory: Normal Breath Sounds, No Rales, No Rhonchi, No Wheezing Gastrointestinal/Abdominal: Soft, No Tenderness Back: No CVA Tenderness Neurological/Psych: Oriented x3, Normal Speech ED Course And Treatment - Laboratory Results Result Diagrams: 01/25/18 00:44 - Radiology CXR: Interpreted by Me CXR Interpretation: Yes: Infiltrates (bilateral lower lobes) Progress Note: Blood work, EKG, urinalysis, and CXR ordered. IV fluids and tylenol administered. - Physician Consult Information Time Consulting Physician Contacted: 00:37 Physician Contacted: Dariana Deluna Outcome Of Conversation: Patient to be admitted for nosocomial pneumonia. Disposition - Disposition Disposition: HOSPITALIZED Disposition Time: 00:37 Condition: FAIR - Clinical Impression Clinical Impression: Hospital-acquired pneumonia - Scribe Statement The provider has reviewed the documentation as recorded by the Scribe Dylan Sanchez All medical record entries made by the Scribe were at my direction and personally dictated by me. I have reviewed the chart and agree that the record accurately reflects my personal performance of the history, physical exam, medical decision making, and the department course for this patient. I have also personally directed, reviewed, and agree with the discharge instructions and disposition. Physician Patient Turnover Patient Signed Over To: Laila Ley Handoff Comments: pending labs and final disposition
[2018-01-25] MEDS ORDERED: Vancomycin 1 gm/NS 200 ml 1 GM/200 ML BAG IVPB STA (00:26)
[2018-01-25] MEDS ORDERED: Piperacill/Tazo 4.5gm in Dex 4.5 GM/100 ML BAG IV STA (00:26)
[2018-01-25] MEDS ORDERED: Sodium Chloride 0.9% 2,000 ML ONE (00:43)
[2018-01-25 00:48] LABS: BASO # 0.1 K/uL (0.0-0.2); EOS # 0.5 K/uL (0.0-0.7); EOS % 4.5 % (0.0-4.0); HEMOGLOBIN 11.2 g/dL (12.0-18.0); LYMPH # 1.9 K/uL (1.0-4.3); LYMPH % 15.8 % (20.0-40.0); MEAN CELL VOLUME 87.4 fL (80.0-94.0); MEAN CORPUSCULAR HEMOGLOBIN 30.3 pg (27.0-31.0); MEAN CORPUSCULAR HGB CONC 34.7 g/dL (33.0-37.0); MEAN PLATELET VOLUME 6.6 fL (7.2-11.7); MONO # 0.9 K/uL (0.0-0.8); MONO % 7.8 % (0.0-10.0); NEUT # 8.4 K/uL (1.8-7.0); NEUT % 70.9 % (50.0-75.0); NRBC % 0.1 % (0.0-2.0); RBC 3.7 Mil/uL (4.40-5.90); RED CELL DISTRIBUTION WIDTH 14.2 % (11.5-14.5); WHITE BLOOD COUNT 11.9 K/uL (4.8-10.8)
[2018-01-25 00:50] LABS: VENOUS BLOOD GAS BASE EXCESS -6.2 mmol/L (0.0-2.0); VENOUS BLOOD GAS PCO2 31 mmHg (40-60); VENOUS BLOOD GAS PO2 30 mm/Hg (30-55); VENOUS BLOOD PH 7.37 (7.32-7.43)
[2018-01-25] MEDS ORDERED: Piperacillin/Tazobact 3.375 gm 100 ML IVPB ONE ×2 (00:53→05:32)
[2018-01-25 00:56] LABS: INR 1.2; PROTHROMBIN TIME 13.3 SECONDS (9.7-12.2)
[2018-01-25 01:02] LABS: ALB/GLOB RATIO 1.2 (1.0-2.1); ALBUMIN 4.1 g/dL (3.5-5.0); CALCIUM 8.4 mg/dl (8.6-10.4)
[2018-01-25] MEDS ORDERED: Sodium Chloride 0.9% 1,000 ML ONE (01:34)
[2018-01-25 01:52] LABS: SQUAMOUS EPITHIAL < 1 /hpf (0-5); URINE BACTERIA RARE (<OCC); URINE BILIRUBIN NEGATIVE (NEGATIVE); URINE BLOOD 1+ (NEGATIVE); URINE CLARITY Hazy (Clear); URINE COLOR Yellow (YELLOW); URINE GLUCOSE (UA) NORMAL (Normal); URINE LEUKOCYTE ESTERASE NEG Leu/uL (Negative); URINE PROTEIN 2+ mg/dL (NEGATIVE); URINE UROBILINOGEN NORMAL mg/dL (0.2-1.0)
[2018-01-25 03:15] LABS: VENOUS BLOOD GAS BASE EXCESS -3.9 mmol/L (0.0-2.0); VENOUS BLOOD GAS PCO2 30 mmHg (40-60); VENOUS BLOOD GAS PO2 37 mm/Hg (30-55); VENOUS BLOOD PH 7.42 (7.32-7.43)
[2018-01-25] MEDS ORDERED: Piperacillin/Tazobact 3.375 gm 100 ML IVPB SCH (06:00)
[2018-01-25] MEDS: (Novolog) Insulin Aspart, Recombinant 100 u/ml 10 ml vial SC SCH ×5 (08:30→21:00)
[2018-01-25] MEDS: Linezolid 600 mg in D5W 300 ml 600 MG/300 ML BAG IVPB SCH ×2 (09:32→21:33)
[2018-01-25] MEDS ORDERED: Enoxaparin 30 mg Syringe SC SCH (10:00)
--- NOTE | 2018-01-25 10:39 | RAD ---
HISTORY: Sepsis Patient COMPARISON: Comparison chest 12/27/2017 FINDINGS: In situ right-sided PICC line with tip in the SVC unchanged. LUNGS: Bibasilar atelectasis and/or infiltrates with suspected small left-sided effusion PLEURA: No significant pleural effusion identified, no pneumothorax apparent. CARDIOVASCULAR: Cardiomegaly. OSSEOUS STRUCTURES: All displaced mid clavicular fracture and old healed fracture of the right humeral head unchanged. Mild multilevel degenerative spondylosis of the thoracic spine VISUALIZED UPPER ABDOMEN: Normal. OTHER FINDINGS: None. IMPRESSION: Bibasilar atelectasis and or infiltrates with small left-sided effusion In situ right-sided PICC line with tip in the SVC unchanged.
[2018-01-25] MEDS: Piperacill/Tazo 2.25gm in Dex 2.25 GM/50 ML BAG IVPB SCH ×2 (13:54→21:33)
--- NOTE | 2018-01-25 14:53 | CP.PCM.CON ---
History of Present Illness - History of Present Illness History of Present Illness: dictated Past Patient History - Past Medical History & Family History Past Medical History?: Yes - Past Social History Smoking Status: Never Smoked - CARDIAC Hx Hypercholesterolemia: Yes Hx Hypertension: Yes - ENDOCRINE/METABOLIC Hx Endocrine Disorders: Yes Hx Diabetes Mellitus Type 2: Yes - MUSCULOSKELETAL/RHEUMATOLOGICAL Hx Falls: Yes - PSYCHIATRIC Hx Substance Use: No - SURGICAL HISTORY Hx Surgeries: Yes Hx Eye Surgery: Yes - ANESTHESIA Hx Anesthesia: Yes Meds Allergies/Adverse Reactions: Allergies Allergy/AdvReac Type Severity Reaction Status Date / Time No Known Allergies Allergy Verified 12/22/17 15:47 - Medications Medications: Current Medications Acetaminophen (Tylenol 325mg Tab) 975 mg PO ONCE PRN PRN Reason: Fever >100.4 F Last Admin: 01/25/18 00:47 Dose: 975 mg Acetaminophen (Tylenol 325mg Tab) 650 mg PO Q4 [facility] Last Admin: 01/25/18 13:00 Dose: 650 mg Enoxaparin Sodium (Lovenox) 30 mg SC DAILY [facility] Last Admin: 01/25/18 09:39 Dose: 30 mg Linezolid (Zyvox 600mg/300ml D5w) 600 mg in 300 mls @ 200 mls/hr IVPB Q12 DIA PRN Reason: Protocol Last Admin: 01/25/18 09:32 Dose: 200 mls/hr Piperacillin Sod/Tazobactam Sod (Zosyn 2.25 Gm Iv Premix) 2.25 gm in 50 mls @ 100 mls/hr IVPB Q8 DIA PRN Reason: Protocol Last Admin: 01/25/18 13:54 Dose: 100 mls/hr Gentamicin Sulfate 120 mg/ (Sodium Chloride) 103 mls @ 100 mls/hr IVPB ONCE ONE PRN Reason: Protocol Stop: 01/25/18 16:01 Insulin Aspart (Novolog) 0 unit SC ACHS DIA PRN Reason: Protocol Last Admin: 01/25/18 12:30 Dose: 3 unit Pantoprazole Sodium (Protonix Inj) 40 mg IVP DAILY [facility] Last Admin: 01/25/18 09:28 Dose: 40 mg Results - Vital Signs Recent Vital Signs: Last Vital Signs Temp 99.9 F H 01/25/18 13:00 Pulse 83 01/25/18 07:35 Resp 20 01/25/18 07:15 BP 152/69 H 01/25/18 07:15 Pulse Ox 98 01/25/18 07:15 - Labs Result Diagrams: 01/25/18 00:44 01/25/18 00:44 Labs: Laboratory Results - last 24 hr 01/25/18 01/25/18 01/25/18 00:35 00:44 00:44 WBC 11.9 H RBC 3.70 L Hgb 11.2 L Hct 32.3 L MCV 87.4 MCH 30.3 MCHC 34.7 RDW 14.2 Plt Count 464 H MPV 6.6 L Neut % (Auto) 70.9 Lymph % (Auto) 15.8 L [place] % (Auto) 7.8 Eos % (Auto) 4.5 H Baso % (Auto) 1.0 Neut # (Auto) 8.4 H Lymph # (Auto) 1.9 [place] # (Auto) 0.9 H Eos # (Auto) 0.5 Baso # (Auto) 0.1 PT 13.3 H INR 1.2 APTT 33 pO2 VBG pH VBG pCO2 VBG HCO3 VBG Total CO2 VBG O2 Sat (Calc) VBG Base Excess VBG Potassium Glucose Lactate Crit Value Called To Crit Value Called By Crit Value Read Back Blood Gas Notified Time Sodium Potassium Chloride Carbon Dioxide Anion Gap BUN Creatinine Est GFR ( Amer) Est GFR (Non-Af Amer) POC Glucose (mg/dL) 200 H Random Glucose Calcium Phosphorus Magnesium Total Bilirubin AST ALT Alkaline Phosphatase Total Protein Albumin Globulin Albumin/Globulin Ratio Venous Blood Potassium Urine Color Urine Clarity Urine pH Ur Specific [place] Urine Protein Urine Glucose (UA) Urine Ketones Urine Blood Urine Nitrate Urine Bilirubin Urine Urobilinogen Ur Leukocyte Esterase Urine WBC (Auto) Urine RBC (Auto) Ur Squamous Epith Cells Urine Bacteria 01/25/18 01/25/18 01/25/18 00:44 00:45 01:38 WBC RBC Hgb Hct MCV MCH MCHC RDW Plt Count MPV Neut % (Auto) Lymph % (Auto) [place] % (Auto) Eos % (Auto) Baso % (Auto) Neut # (Auto) Lymph # (Auto) [place] # (Auto) Eos # (Auto) Baso # (Auto) PT INR APTT pO2 30 VBG pH 7.37 VBG pCO2 31 L VBG HCO3 18.9 VBG Total CO2 18.9 L VBG O2 Sat (Calc) 58.5 VBG Base Excess -6.2 L VBG Potassium 4.3 Glucose 196 H Lactate 4.1 H* Crit Value Called To Arlene rivera/rn Crit Value Called By Zoltan warner/rt Crit Value Read Back Y Blood Gas Notified Time 50 Sodium 136 135.0 Potassium 4.4 Chloride 100 100.0 Carbon Dioxide 18 L Anion Gap 22 H BUN 32 H Creatinine 3.7 H Est GFR ( Amer) 20 Est GFR (Non-Af Amer) 17 POC Glucose (mg/dL) Random Glucose 191 H Calcium 8.4 L Phosphorus 4.3 Magnesium 1.9 Total Bilirubin 0.6 AST 57 ALT 47 Alkaline Phosphatase 70 Total Protein 7.6 Albumin 4.1 Globulin 3.5 Albumin/Globulin Ratio 1.2 Venous Blood Potassium 4.3 Urine Color Yellow Urine Clarity Hazy Urine pH 5.0 Ur Specific [place] 1.013 Urine Protein 2+ H Urine Glucose (UA) Normal Urine Ketones Negative Urine Blood 1+ H Urine Nitrate Negative Urine Bilirubin Negative Urine Urobilinogen Normal Ur Leukocyte Esterase Neg Urine WBC (Auto) 5 Urine RBC (Auto) 2 Ur Squamous Epith Cells < 1 Urine Bacteria Rare 01/25/18 01/25/18 01/25/18 03:10 08:26 11:05 WBC RBC Hgb Hct MCV MCH MCHC RDW Plt Count MPV Neut % (Auto) Lymph % (Auto) [place] % (Auto) Eos % (Auto) Baso % (Auto) Neut # (Auto) Lymph # (Auto) [place] # (Auto) Eos # (Auto) Baso # (Auto) PT INR APTT pO2 37 VBG pH 7.42 VBG pCO2 30 L VBG HCO3 21.2 VBG Total CO2 20.4 L VBG O2 Sat (Calc) 74.0 H VBG Base Excess -3.9 L VBG Potassium 4.3 Glucose 189 H Lactate 1.0 Crit Value Called To Crit Value Called By Crit Value Read Back Blood Gas Notified Time Sodium 133.0 Potassium Chloride 104.0 Carbon Dioxide Anion Gap BUN Creatinine Est GFR ( Amer) Est GFR (Non-Af Amer) POC Glucose (mg/dL) 180 H 255 H Random Glucose Calcium Phosphorus Magnesium Total Bilirubin AST ALT Alkaline Phosphatase Total Protein Albumin Globulin Albumin/Globulin Ratio Venous Blood Potassium 4.3 Urine Color Urine Clarity Urine pH Ur Specific [place] Urine Protein Urine Glucose (UA) Urine Ketones Urine Blood Urine Nitrate Urine Bilirubin Urine Urobilinogen Ur Leukocyte Esterase Urine WBC (Auto) Urine RBC (Auto) Ur Squamous Epith Cells Urine Bacteria
--- NOTE | 2018-01-25 16:56 | CT ---
PROCEDURE: CT Chest without contrast HISTORY: sob r/o pneumonia COMPARISON: None. TECHNIQUE: Contiguous axial images were obtained through the chest without intravenous contrast enhancement. Sagittal and coronal reconstructions were performed. Radiation dose (DLP): 699.6 mGy-cm. This CT exam was performed using one or more of the following dose reduction techniques: Automated exposure control, adjustment of the mA and/or kV according to patient size, and/or use of iterative reconstruction technique. FINDINGS: LUNGS: Bilateral lower lobe atelectasis. Smooth interlobular septal thickening. Visualized airway clear. MEDIASTINUM: Unremarkable thoracic aorta. No aneurysm. Normal sized heart. Main pulmonary artery unremarkable. No lymphadenopathy. PLEURA: Small to moderate bilateral pleural effusions. No pneumothorax. BONES: No fracture. No destructive lesion. UPPER ABDOMEN: Pancreatic calcifications. OTHER FINDINGS: None. IMPRESSION: Pulmonary vascular congestion with small to moderate bilateral pleural effusions and subjacent atelectasis. Additional findings as above.
--- NOTE | 2018-01-25 17:28 | US ---
PROCEDURE: Ultrasound of the Kidneys HISTORY: acute renal failure COMPARISON: None available. TECHNIQUE: Sonogram of the kidneys. FINDINGS: RIGHT KIDNEY: Measures: 11.7 x 5.0 x 5.7 cm. Normal in size, contour and echogenicity. No stone, solid mass lesion or hydronephrosis visualized. LEFT KIDNEY: Measures: 12.6 x 6.7 x 6.3 cm. Normal in size, contour and echogenicity. No stone, solid mass lesion or hydronephrosis visualized. OTHER FINDINGS: Underdistention of the urinary bladder limits evaluation. Left pleural effusion. IMPRESSION: Unremarkable renal sonogram. Incidental note is made of left pleural effusion.
--- NOTE | 2018-01-25 18:45 | CP.PCM.HP ---
Past Patient History - Past Medical History & Family History Past Medical History?: Yes - Past Social History Smoking Status: Never Smoked - CARDIAC Hx Hypercholesterolemia: Yes Hx Hypertension: Yes - ENDOCRINE/METABOLIC Hx Endocrine Disorders: Yes Hx Diabetes Mellitus Type 2: Yes - MUSCULOSKELETAL/RHEUMATOLOGICAL Hx Falls: Yes - PSYCHIATRIC Hx Substance Use: No - SURGICAL HISTORY Hx Surgeries: Yes Hx Eye Surgery: Yes - ANESTHESIA Hx Anesthesia: Yes Meds Allergies/Adverse Reactions: Allergies Allergy/AdvReac Type Severity Reaction Status Date / Time No Known Allergies Allergy Verified 12/22/17 15:47 Physical Exam - Constitutional Appears: Well - Head Exam Head Exam: ATRAUMATIC, NORMAL INSPECTION, NORMOCEPHALIC - Eye Exam Eye Exam: EOMI, Normal appearance, PERRL Pupil Exam: NORMAL ACCOMODATION, PERRL - ENT Exam ENT Exam: Mucous Membranes Moist, Normal Exam - Neck Exam Neck exam: Positive for: Normal Inspection - Respiratory Exam Respiratory Exam: Decreased Breath Sounds - Cardiovascular Exam Cardiovascular Exam: REGULAR RHYTHM, +S1, +S2 - GI/Abdominal Exam GI & Abdominal Exam: Diminished Bowel Sounds, Soft - Rectal Exam Rectal Exam: Deferred Results - Vital Signs Recent Vital Signs: Last Vital Signs Temp 99.2 F 01/25/18 14:00 Pulse 83 01/25/18 07:35 Resp 20 01/25/18 07:15 BP 152/69 H 01/25/18 07:15 Pulse Ox 98 01/25/18 07:15 - Labs Result Diagrams: 01/25/18 00:44 01/25/18 00:44 Labs: Laboratory Results - last 24 hr 01/25/18 01/25/18 01/25/18 00:35 00:44 00:44 WBC 11.9 H RBC 3.70 L Hgb 11.2 L Hct 32.3 L MCV 87.4 MCH 30.3 MCHC 34.7 RDW 14.2 Plt Count 464 H MPV 6.6 L Neut % (Auto) 70.9 Lymph % (Auto) 15.8 L [place] % (Auto) 7.8 Eos % (Auto) 4.5 H Baso % (Auto) 1.0 Neut # (Auto) 8.4 H Lymph # (Auto) 1.9 [place] # (Auto) 0.9 H Eos # (Auto) 0.5 Baso # (Auto) 0.1 PT 13.3 H INR 1.2 APTT 33 pO2 VBG pH VBG pCO2 VBG HCO3 VBG Total CO2 VBG O2 Sat (Calc) VBG Base Excess VBG Potassium Glucose Lactate Crit Value Called To Crit Value Called By Crit Value Read Back Blood Gas Notified Time Sodium Potassium Chloride Carbon Dioxide Anion Gap BUN Creatinine Est GFR ( Amer) Est GFR (Non-Af Amer) POC Glucose (mg/dL) 200 H Random Glucose Calcium Phosphorus Magnesium Total Bilirubin AST ALT Alkaline Phosphatase Total Protein Albumin Globulin Albumin/Globulin Ratio Venous Blood Potassium Urine Color Urine Clarity Urine pH Ur Specific [place] Urine Protein Urine Glucose (UA) Urine Ketones Urine Blood Urine Nitrate Urine Bilirubin Urine Urobilinogen Ur Leukocyte Esterase Urine WBC (Auto) Urine RBC (Auto) Ur Squamous Epith Cells Urine Bacteria 01/25/18 01/25/18 01/25/18 00:44 00:45 01:38 WBC RBC Hgb Hct MCV MCH MCHC RDW Plt Count MPV Neut % (Auto) Lymph % (Auto) [place] % (Auto) Eos % (Auto) Baso % (Auto) Neut # (Auto) Lymph # (Auto) [place] # (Auto) Eos # (Auto) Baso # (Auto) PT INR APTT pO2 30 VBG pH 7.37 VBG pCO2 31 L VBG HCO3 18.9 VBG Total CO2 18.9 L VBG O2 Sat (Calc) 58.5 VBG Base Excess -6.2 L VBG Potassium 4.3 Glucose 196 H Lactate 4.1 H* Crit Value Called To Arlene rivera/rn Crit Value Called By Zoltan warner/rt Crit Value Read Back Y Blood Gas Notified Time 50 Sodium 136 135.0 Potassium 4.4 Chloride 100 100.0 Carbon Dioxide 18 L Anion Gap 22 H BUN 32 H Creatinine 3.7 H Est GFR ( Amer) 20 Est GFR (Non-Af Amer) 17 POC Glucose (mg/dL) Random Glucose 191 H Calcium 8.4 L Phosphorus 4.3 Magnesium 1.9 Total Bilirubin 0.6 AST 57 ALT 47 Alkaline Phosphatase 70 Total Protein 7.6 Albumin 4.1 Globulin 3.5 Albumin/Globulin Ratio 1.2 Venous Blood Potassium 4.3 Urine Color Yellow Urine Clarity Hazy Urine pH 5.0 Ur Specific [place] 1.013 Urine Protein 2+ H Urine Glucose (UA) Normal Urine Ketones Negative Urine Blood 1+ H Urine Nitrate Negative Urine Bilirubin Negative Urine Urobilinogen Normal Ur Leukocyte Esterase Neg Urine WBC (Auto) 5 Urine RBC (Auto) 2 Ur Squamous Epith Cells < 1 Urine Bacteria Rare 01/25/18 01/25/18 01/25/18 03:10 08:26 11:05 WBC RBC Hgb Hct MCV MCH MCHC RDW Plt Count MPV Neut % (Auto) Lymph % (Auto) [place] % (Auto) Eos % (Auto) Baso % (Auto) Neut # (Auto) Lymph # (Auto) [place] # (Auto) Eos # (Auto) Baso # (Auto) PT INR APTT pO2 37 VBG pH 7.42 VBG pCO2 30 L VBG HCO3 21.2 VBG Total CO2 20.4 L VBG O2 Sat (Calc) 74.0 H VBG Base Excess -3.9 L VBG Potassium 4.3 Glucose 189 H Lactate 1.0 Crit Value Called To Crit Value Called By Crit Value Read Back Blood Gas Notified Time Sodium 133.0 Potassium Chloride 104.0 Carbon Dioxide Anion Gap BUN Creatinine Est GFR ( Amer) Est GFR (Non-Af Amer) POC Glucose (mg/dL) 180 H 255 H Random Glucose Calcium Phosphorus Magnesium Total Bilirubin AST ALT Alkaline Phosphatase Total Protein Albumin Globulin Albumin/Globulin Ratio Venous Blood Potassium 4.3 Urine Color Urine Clarity Urine pH Ur Specific [place] Urine Protein Urine Glucose (UA) Urine Ketones Urine Blood Urine Nitrate Urine Bilirubin Urine Urobilinogen Ur Leukocyte Esterase Urine WBC (Auto) Urine RBC (Auto) Ur Squamous Epith Cells Urine Bacteria
--- NOTE | 2018-01-26 05:30 | CON ---
DATE: 01/25/2018 HISTORY OF PRESENT ILLNESS: The patient is a 62-year-old male. He was recently here. He is diabetic, and he came with toe infection and underwent amputation as it was the distal phalanx, and partial amputation was done of his toe and he underwent surgery we with Dr. Logan and the surgery was done on 01/03/2018. Operative note says, he also had arteriogram and he had a left foot hallux, a partial hallux amputation, left hallux which was done on 01/03/2018, and soon after, he was sent to the rehab for getting IV antibiotics, and towards the end of the first week of IV antibiotics, it was noted that his creatinine was 3+, and the vancomycin random level was high, so we discontinued the vancomycin, continued with Zosyn, and then after that, we give him fluids but he became edematous, and they had to give Lasix, and last night, he started to have fevers. He does have a PICC line which we placed before he went to the rehab. Since his creatinine remained elevated, I had changed the Zosyn to Rocephin for few days and he continued that, and he had fever in spite of being on Rocephin yesterday and was transferred here to the hospital. He is having chills right now and he is under covers and he does not complain of any other problems at this time. He denies any cough, cold, or other issues at this time, and he did come in yesterday, and since his creatinine has gone up . He was on metformin before. He was on other medications for his sugar, and they also had to be changed. The patient came in with chills right now and was having high fever. I was consulted this morning and I came to see him now. He denies any nausea, vomiting. He did say he had increase in weight. He used to be 165 and he became 189, and then they gave Lasix for 5 days and it came down to 184, he is still edematous. He did had a temperature of 101.2 when he came with a heart rate of 106, respirations 18, pulse 98. He denies any urinary symptoms. He does have chills right now, and he received IV antibiotics in the ER, and I have changed his medications to Zyvox and Zosyn at this time which he is getting at a reduced dose 2.25 based on his creatinine. PAST MEDICAL HISTORY: Significant for diabetes, hypertension, hypercholesterolemia. SURGICAL HISTORY: Significant for left toe partial amputation SOCIAL HISTORY: Negative for smoking or drinking. No substance abuse. FAMILY HISTORY: Noncontributory. He did have fevers. He denies any chest pain. Denies any shortness of breath. No coughing. He denies any palpitations. No nausea, no vomiting. No urinary complaints. He denies any skin rash. Denies any weakness and numbness but he has chills right now, and he does have a PICC line which was placed on last admission. PHYSICAL EXAMINATION: VITAL SIGNS: On examination, I find that his temperature, T-max was 102.2 before, and now it is 99.9. He was shaking with chills, even though the temperature here they wrote is 99.9, pulse 83, blood pressure 152/69. He is Advent male. HEENT: Head is atraumatic, normocephalic. Pupils are reacting to light. Tongue is dry. He wears a long cline. NECK: Supple. JVP is flat. LUNGS: Clear. No crackles or rales heard. HEART: S1, S2 is regular. No murmurs appreciated. ABDOMEN: Soft, nontender. No guarding, no rigidity present. EXTREMITIES: Have edema. He has a dressing on the foot. I am waiting for him to be assessed by Dr. Logan at this time. He does have a PICC line which I have asked the nurse to remove it, and he has a peripheral line to give IV antibiotics as I think that he may have a line sepsis. White count is 11.9, hemoglobin 11.2, hematocrit 32.3, platelet count is 454 is elevated, INR is 1.2. ABG was done which showed 7.47, CO2 of 30, bicarb 21.2, saturation 74, and glucose is 189. Sodium 136, potassium 4.4, CO2 is 18, anion gap is 22, BUN is 32. Creatinine remains 3.7. His creatinine was on 01/05 of 0.9 so this is a big change that happened, and LFTs are unremarkable. His urine shows 2+ proteins, 1+ blood, rare wbc. He had a chest x-ray done, and I also ordered a chest CT and a renal ultrasound which is all done at this time when I am dictating my note and chest x-ray which was done this morning showed bibasilar atelectasis and/or infiltrate with small left-sided effusion in the right-sided PICC line, the tip in the SVC is unchanged. This was in the morning, and then we ordered a chest CT which was done today. Chest CT shows pulmonary vascular congestion with small to moderate bilateral pleural effusion and adjacent atelectasis. He has vascular congestion with small to moderate bilateral pleural effusion. No pneumothorax. Right now, he is not having any trouble breathing but he does have effusions and failure and his kidney functions are worsened, and ultrasound shows kidneys are unremarkable. Renal sonogram incidentally noted left pleural effusion. He has bilateral pleural effusions at this time with CHF and comes in with fever and has chills. Probably, he is septic with bacteremia, most likely line sepsis. Blood culture was done, and he is also covered for pneumonia versus CHF at this time and a urine culture has been ordered since he does have increased renal function and I need to make sure they ordered urine, and at this time I will continue these antibiotics and will follow and also to look into the great toe if it is healing or not as he was in the rehab before. Tiffany Blancas MD
[2018-01-26] MEDS: Piperacill/Tazo 2.25gm in Dex 2.25 GM/50 ML BAG IVPB SCH ×3 (05:41→21:22)
[2018-01-26] MEDS: (Novolog) Insulin Aspart, Recombinant 100 u/ml 10 ml vial SC SCH ×4 (06:58→22:54)
[2018-01-26 08:05] LABS: BASO % 0.4 % (0.0-2.0); EOS # 1.1 K/uL (0.0-0.7); EOS % 12.2 % (0.0-4.0); HEMOGLOBIN 10.7 g/dL (12.0-18.0); LYMPH # 0.3 K/uL (1.0-4.3); LYMPH % 2.7 % (20.0-40.0); MEAN CORPUSCULAR HEMOGLOBIN 30.4 pg (27.0-31.0); MEAN PLATELET VOLUME 6.7 fL (7.2-11.7); MONO # 0.3 K/uL (0.0-0.8); MONO % 3.7 % (0.0-10.0); NEUT # 7.6 K/uL (1.8-7.0); PLATELET COUNT 354 K/uL (130-400); RBC 3.52 Mil/uL (4.40-5.90); RED CELL DISTRIBUTION WIDTH 14.1 % (11.5-14.5); WHITE BLOOD COUNT 9.3 K/uL (4.8-10.8)
[2018-01-26 08:19] LABS: ALB/GLOB RATIO 1.1 (1.0-2.1); ALBUMIN 3.2 g/dL (3.5-5.0); CALCIUM 7.2 mg/dl (8.6-10.4)
[2018-01-26 08:36] LABS: BANDS 2 % (0-2); EOSINOPHIL 13 % (0-4); HYPOCHROMIC SLIGHT; LYMPHOCYTE 4 % (20-40); MONOCYTE 5 % (0-10); NEUTROPHIL 76 % (50-75); OVALOCYTES SLIGHT; PLATELET ESTIMATE NORMAL (NORMAL); TEARDROP CELLS SLIGHT; TOTAL CELLS COUNTED 100
[2018-01-26] MEDS ORDERED: Sodium Chloride 0.45% 1,000 ML IV SCH (09:15)
[2018-01-26] MEDS: Linezolid 600 mg in D5W 300 ml 600 MG/300 ML BAG IVPB SCH ×2 (09:17→22:29)
[2018-01-26] MEDS: Sodium Chloride 0.9% 1,000 ML IV SCH ×2 (09:52→22:02)
[2018-01-26] MEDS ORDERED: (Novolin R) Insulin Human Regular 100 units/ml vial SC SCH (11:30)
--- NOTE | 2018-01-26 12:50 | CP.PCM.PN ---
Subjective - Date & Time of Evaluation Date of Evaluation: 01/26/18 Time of Evaluation: 09:00 - Subjective Subjective: clinically same Objective - Vital Signs/Intake and Output Vital Signs (last 24 hours): Temp Pulse Resp BP Pulse Ox 100.4 F H 85 22 156/84 H 97 01/26/18 12:07 01/26/18 08:00 01/26/18 08:00 01/26/18 08:00 01/26/18 08:00 Intake and Output: 01/26/18 01/26/18 06:59 18:59 Intake Total 500 Balance 500 - Medications Medications: Current Medications Acetaminophen (Tylenol 325mg Tab) 975 mg PO ONCE PRN PRN Reason: Fever >100.4 F Last Admin: 01/25/18 00:47 Dose: 975 mg Acetaminophen (Tylenol 325mg Tab) 650 mg PO Q4 [facility] Last Admin: 01/26/18 12:07 Dose: 650 mg Amlodipine Besylate (Norvasc) 10 mg PO DAILY [facility] Last Admin: 01/26/18 09:49 Dose: 10 mg Heparin Sodium (Porcine) (Heparin) 5,000 units SC Q12 DIA Last Admin: 01/26/18 09:48 Dose: 5,000 units Linezolid (Zyvox 600mg/300ml D5w) 600 mg in 300 mls @ 200 mls/hr IVPB Q12 DIA PRN Reason: Protocol Last Admin: 01/26/18 09:17 Dose: 200 mls/hr Piperacillin Sod/Tazobactam Sod (Zosyn 2.25 Gm Iv Premix) 2.25 gm in 50 mls @ 100 mls/hr IVPB Q8 DIA PRN Reason: Protocol Last Admin: 01/26/18 05:41 Dose: 100 mls/hr Sodium Chloride (Sodium Chloride 0.9%) 1,000 mls @ 80 mls/hr IV .[id number] [facility] Last Admin: 01/26/18 09:52 Dose: 80 mls/hr Insulin Aspart (Novolog) 0 unit SC ACHS DIA PRN Reason: Protocol Last Admin: 01/26/18 12:01 Dose: Not Given Pantoprazole Sodium (Protonix Inj) 40 mg IVP DAILY [facility] Last Admin: 01/26/18 09:15 Dose: 40 mg - Labs Labs: 01/26/18 07:48 01/26/18 07:48 PT 13.3 SECONDS (9.7-12.2) H 01/25/18 00:44 INR 1.2 01/25/18 00:44 APTT 33 SECONDS (21-34) 01/25/18 00:44 - Constitutional Appears: Well - Head Exam Head Exam: ATRAUMATIC, NORMAL INSPECTION, NORMOCEPHALIC - Eye Exam Eye Exam: EOMI, Normal appearance, PERRL Pupil Exam: NORMAL ACCOMODATION, PERRL - ENT Exam ENT Exam: Mucous Membranes Moist, Normal Exam - Neck Exam Neck Exam: Full ROM, Normal Inspection. absent: Lymphadenopathy - Respiratory Exam Respiratory Exam: Decreased Breath Sounds - Cardiovascular Exam Cardiovascular Exam: REGULAR RHYTHM, +S1, +S2 - GI/Abdominal Exam GI & Abdominal Exam: Soft, Diminished Bowel Sounds - Rectal Exam Rectal Exam: Deferred
--- NOTE | 2018-01-26 19:40 | CP.PCM.PN ---
Subjective - Date & Time of Evaluation Date of Evaluation: 01/26/18 Time of Evaluation: 04:00 - Subjective Subjective: dictated Objective - Vital Signs/Intake and Output Vital Signs (last 24 hours): Temp Pulse Resp BP Pulse Ox 99 F 101 H 21 180/91 H 98 01/26/18 15:59 01/26/18 16:00 01/26/18 15:59 01/26/18 15:59 01/26/18 15:59 Intake and Output: 01/26/18 01/27/18 18:59 06:59 Intake Total 700 Output Total 400 Balance 300 - Medications Medications: Current Medications Acetaminophen (Tylenol 325mg Tab) 975 mg PO ONCE PRN PRN Reason: Fever >100.4 F Last Admin: 01/25/18 00:47 Dose: 975 mg Acetaminophen (Tylenol 325mg Tab) 650 mg PO Q4 [facility] Last Admin: 01/26/18 16:32 Dose: 650 mg Amlodipine Besylate (Norvasc) 10 mg PO DAILY [facility] Last Admin: 01/26/18 09:49 Dose: 10 mg Heparin Sodium (Porcine) (Heparin) 5,000 units SC Q12 DIA Last Admin: 01/26/18 09:48 Dose: 5,000 units Linezolid (Zyvox 600mg/300ml D5w) 600 mg in 300 mls @ 200 mls/hr IVPB Q12 DIA PRN Reason: Protocol Last Admin: 01/26/18 09:17 Dose: 200 mls/hr Piperacillin Sod/Tazobactam Sod (Zosyn 2.25 Gm Iv Premix) 2.25 gm in 50 mls @ 100 mls/hr IVPB Q8 DIA PRN Reason: Protocol Last Admin: 01/26/18 13:52 Dose: 100 mls/hr Sodium Chloride (Sodium Chloride 0.9%) 1,000 mls @ 80 mls/hr IV .[id number] DIA Last Admin: 01/26/18 09:52 Dose: 80 mls/hr Insulin Aspart (Novolog) 0 unit SC ACHS DIA PRN Reason: Protocol Last Admin: 01/26/18 16:34 Dose: Not Given Pantoprazole Sodium (Protonix Inj) 40 mg IVP DAILY [facility] Last Admin: 01/26/18 09:15 Dose: 40 mg - Labs Labs: 01/26/18 07:48 01/26/18 07:48 PT 13.3 SECONDS (9.7-12.2) H 01/25/18 00:44 INR 1.2 01/25/18 00:44 APTT 33 SECONDS (21-34) 01/25/18 00:44
--- NOTE | 2018-01-26 22:58 | PN ---
DATE: 01/26/2018 SUBJECTIVE: The patient, Ricardo Cuevas, was seen today. Again, he was shivering and shaking as if he is bacteremic. His temperature, the nurse told me it was 99, but now on the repeat I find his temperature is 102.1. They have removed the PICC line. He is still with the shakes, and he probably has septicemia. We are unable to get this on the blood culture. Blood cultures and urine cultures have been reported negative. Catheter tip has been reported negative. He denies any cough or cold, but he is getting IV fluids and he is voiding a lot, he said. Denied any urinary symptoms. He appeared weak and frail. PHYSICAL EXAMINATION: HEENT: Head is atraumatic. NECK: Supple. LUNGS: There are decreased breath sounds bilaterally. HEART: Tachycardic. ABDOMEN: Soft. Nontender. No guarding, no rigidity present. EXTREMITIES: The foot appears to have a dressing and appears stable with some edema. He is still waiting to be seen by the nut sorter operator. He remains on Zyvox and Zosyn at this time. LABORATORY DATA: Labs show white count is 9.3, hemoglobin 10.7, hematocrit 30.6, platelet count is 354. CO2 is 17. Creatinine has increased to 4.3. ASSESSMENT AND PLAN: Yesterday when he had chills, I did give him one dose of gentamicin. Now, I was thinking he is bacteremic because of the peripherally inserted central catheter line, but peripherally inserted central catheter line has been discontinued. He has x-rays; they are saying failure versus pneumonia. He also has acute renal failure. He recently has osteomyelitis, status post surgery and was getting antibiotics. I still think he has septicemia. We will continue these medications and if he continues to have fever, then I would consider to change the antibiotics further tomorrow. We will follow. Tiffany Blancas MD
--- NOTE | 2018-01-26 23:10 | CARD ---
APPROVED REPORT EKG Measurement Heart [id number] <Conclusion> Normal sinus rhythm Low voltage QRS Nonspecific T wave abnormality Abnormal ECG
[2018-01-27] MEDS: Sodium Chloride 0.9% 1,000 ML IV SCH ×3 (03:02→18:42)
[2018-01-27] MEDS: Piperacill/Tazo 2.25gm in Dex 2.25 GM/50 ML BAG IVPB SCH ×3 (07:08→21:07)
[2018-01-27 07:43] LABS: BASO % 0.3 % (0.0-2.0); EOS # 1.5 K/uL (0.0-0.7); EOS % 15.3 % (0.0-4.0); HEMOGLOBIN 10.4 g/dL (12.0-18.0); LYMPH # 0.7 K/uL (1.0-4.3); LYMPH % 6.7 % (20.0-40.0); MEAN CELL VOLUME 85.7 fL (80.0-94.0); MEAN CORPUSCULAR HEMOGLOBIN 30.6 pg (27.0-31.0); MEAN CORPUSCULAR HGB CONC 35.7 g/dL (33.0-37.0); MONO # 0.4 K/uL (0.0-0.8); MONO % 4.1 % (0.0-10.0); NEUT # 7.2 K/uL (1.8-7.0); NEUT % 73.6 % (50.0-75.0); NRBC % 0.1 % (0.0-2.0); PLATELET COUNT 309 K/uL (130-400); RBC 3.38 Mil/uL (4.40-5.90); RED CELL DISTRIBUTION WIDTH 14.5 % (11.5-14.5); WHITE BLOOD COUNT 9.8 K/uL (4.8-10.8)
[2018-01-27] MEDS: (Novolog) Insulin Aspart, Recombinant 100 u/ml 10 ml vial SC SCH ×4 (07:56→22:10)
[2018-01-27 08:14] LABS: ALB/GLOB RATIO 1.1 (1.0-2.1); ALBUMIN 3.3 g/dL (3.5-5.0); CALCIUM 7.5 mg/dl (8.6-10.4)
[2018-01-27] MEDS: Linezolid 600 mg in D5W 300 ml 600 MG/300 ML BAG IVPB SCH ×2 (09:32→21:43)
[2018-01-27 10:02] LABS: BANDS 5 % (0-2); EOSINOPHIL 12 % (0-4); LYMPHOCYTE 5 % (20-40); MONOCYTE 3 % (0-10); NEUTROPHIL 75 % (50-75); PLATELET ESTIMATE NORMAL (NORMAL); TOTAL CELLS COUNTED 100
[2018-01-27 10:03] LABS: ANISOCYTOSIS SLIGHT; BURR CELLS SLIGHT; HYPOCHROMIC SLIGHT; POIKILOCYTOSIS SLIGHT
--- NOTE | 2018-01-27 14:46 | CP.PCM.PN ---
Subjective - Date & Time of Evaluation Date of Evaluation: 01/27/18 Time of Evaluation: 09:00 - Subjective Subjective: clinically same Objective - Vital Signs/Intake and Output Vital Signs (last 24 hours): Temp Pulse Resp BP Pulse Ox 99.8 F H 90 20 152/82 H 96 01/27/18 07:00 01/27/18 12:00 01/27/18 07:00 01/27/18 09:32 01/27/18 07:00 Intake and Output: 01/27/18 01/27/18 06:59 18:59 Intake Total 1370 Balance 1370 - Medications Medications: Current Medications Acetaminophen (Tylenol 325mg Tab) 975 mg PO ONCE PRN PRN Reason: Fever >100.4 F Last Admin: 01/25/18 00:47 Dose: 975 mg Acetaminophen (Tylenol 325mg Tab) 650 mg PO Q4 [facility] Last Admin: 01/27/18 12:48 Dose: 650 mg Amlodipine Besylate (Norvasc) 10 mg PO DAILY [facility] Last Admin: 01/27/18 09:32 Dose: 10 mg Furosemide (Lasix) 80 mg IVP DAILY [facility] Last Admin: 01/27/18 09:32 Dose: 80 mg Heparin Sodium (Porcine) (Heparin) 5,000 units SC Q12 [facility]IA Last Admin: 01/27/18 09:32 Dose: 5,000 units Hydralazine HCl (Apresoline) 50 mg PO Q8 [facility] Last Admin: 01/27/18 13:23 Dose: 50 mg Linezolid (Zyvox 600mg/300ml D5w) 600 mg in 300 mls @ 200 mls/hr IVPB Q12 DIA PRN Reason: Protocol Last Admin: 01/27/18 09:32 Dose: 200 mls/hr Piperacillin Sod/Tazobactam Sod (Zosyn 2.25 Gm Iv Premix) 2.25 gm in 50 mls @ 100 mls/hr IVPB Q8 DIA PRN Reason: Protocol Last Admin: 01/27/18 13:23 Dose: 100 mls/hr Sodium Chloride (Sodium Chloride 0.9%) 1,000 mls @ 80 mls/hr IV .[id number] [facility] Last Admin: 01/27/18 11:15 Dose: Not Given Insulin Aspart (Novolog) 0 unit SC ACHS DIA PRN Reason: Protocol Last Admin: 01/27/18 11:31 Dose: Not Given Pantoprazole Sodium (Protonix Inj) 40 mg IVP DAILY [facility] Last Admin: 01/27/18 09:32 Dose: 40 mg - Labs Labs: 01/27/18 07:30 01/27/18 07:30 PT 13.3 SECONDS (9.7-12.2) H 01/25/18 00:44 INR 1.2 01/25/18 00:44 APTT 33 SECONDS (21-34) 01/25/18 00:44 - Constitutional Appears: Well - Head Exam Head Exam: ATRAUMATIC, NORMAL INSPECTION, NORMOCEPHALIC - Eye Exam Eye Exam: EOMI, Normal appearance, PERRL Pupil Exam: NORMAL ACCOMODATION, PERRL - ENT Exam ENT Exam: Mucous Membranes Moist, Normal Exam - Neck Exam Neck Exam: Full ROM, Normal Inspection. absent: Lymphadenopathy - Respiratory Exam Respiratory Exam: Decreased Breath Sounds - Cardiovascular Exam Cardiovascular Exam: REGULAR RHYTHM, +S1, +S2 - GI/Abdominal Exam GI & Abdominal Exam: Soft, Diminished Bowel Sounds - Rectal Exam Rectal Exam: Deferred
--- NOTE | 2018-01-27 16:59 | CP.PCM.PN ---
Subjective - Date & Time of Evaluation Date of Evaluation: 01/27/18 Time of Evaluation: 03:30 - Subjective Subjective: dictated Objective - Vital Signs/Intake and Output Vital Signs (last 24 hours): Temp Pulse Resp BP Pulse Ox 98.2 F 98 H 20 161/76 H 97 01/27/18 15:00 01/27/18 15:30 01/27/18 15:00 01/27/18 15:00 01/27/18 15:00 Intake and Output: 01/27/18 01/27/18 06:59 18:59 Intake Total 1370 Balance 1370 - Medications Medications: Current Medications Acetaminophen (Tylenol 325mg Tab) 975 mg PO ONCE PRN PRN Reason: Fever >100.4 F Last Admin: 01/25/18 00:47 Dose: 975 mg Acetaminophen (Tylenol 325mg Tab) 650 mg PO Q4 [facility] Last Admin: 01/27/18 16:54 Dose: 650 mg Amlodipine Besylate (Norvasc) 10 mg PO DAILY [facility] Last Admin: 01/27/18 09:32 Dose: 10 mg Furosemide (Lasix) 80 mg IVP DAILY [facility] Last Admin: 01/27/18 09:32 Dose: 80 mg Heparin Sodium (Porcine) (Heparin) 5,000 units SC Q12 [facility]IA Last Admin: 01/27/18 09:32 Dose: 5,000 units Hydralazine HCl (Apresoline) 50 mg PO Q8 [facility] Last Admin: 01/27/18 13:23 Dose: 50 mg Linezolid (Zyvox 600mg/300ml D5w) 600 mg in 300 mls @ 200 mls/hr IVPB Q12 DIA PRN Reason: Protocol Last Admin: 01/27/18 09:32 Dose: 200 mls/hr Piperacillin Sod/Tazobactam Sod (Zosyn 2.25 Gm Iv Premix) 2.25 gm in 50 mls @ 100 mls/hr IVPB Q8 DIA PRN Reason: Protocol Last Admin: 01/27/18 13:23 Dose: 100 mls/hr Sodium Chloride (Sodium Chloride 0.9%) 1,000 mls @ 80 mls/hr IV .[id number] [facility] Last Admin: 01/27/18 11:15 Dose: Not Given Insulin Aspart (Novolog) 0 unit SC ACHS DIA PRN Reason: Protocol Last Admin: 01/27/18 16:53 Dose: 1 unit Pantoprazole Sodium (Protonix Inj) 40 mg IVP DAILY [facility] Last Admin: 01/27/18 09:32 Dose: 40 mg - Labs Labs: 01/27/18 07:30 01/27/18 07:30 PT 13.3 SECONDS (9.7-12.2) H 01/25/18 00:44 INR 1.2 01/25/18 00:44 APTT 33 SECONDS (21-34) 01/25/18 00:44
--- NOTE | 2018-01-27 22:25 | PN ---
DATE: 01/27/2018 SUBJECTIVE: The patient was little better today; however, he becomes dyspneic on exertion. Like I asked him to sit up, and he was short of breath. He is getting 80 mL of fluids. He did receive Lasix yesterday. His creatinine is worsening. I think, Dr. Ricky Deluna needs to decide about dialysis. Today, he was not shaking, no chills. PHYSICAL EXAMINATION: VITAL SIGNS: T-max is 98.2, pulse is 88, blood pressure 161/76, respirations are 20. HEENT: Head is atraumatic, normocephalic. NECK: Supple. LUNGS: Have coarse breath sounds. HEART: S1, S2 are regular. ABDOMEN: Soft and nontender. EXTREMITIES: Remain with edema. Left foot has edema and a dressing. Dye House Worker has not come to see him so far. I would like to know what they assess about the foot, and I will also get an x-ray of the foot. We will order an x-ray of the foot at this time. LABORATORY DATA: Labs are noted. Labs show white count is 9.8, hemoglobin 10.4, hematocrit 29, platelet count is 309. We will also repeat a procalcitonin level and CBC tomorrow to see where we stand with it. X-ray was read as CHF, pneumonia, but he is not coughing and maybe he is just in failure because of the acute renal failure. His creatinine is up and AST is 90. The cultures all came out negative, but he was on antibiotics. ASSESSMENT AND PLAN: Now, we have removed the peripherally inserted central catheter line which could have been a source of infection, but the tip has not grown anything so far, so we will get x-ray of his foot just to be sure that it is healing. We will follow. He is getting a huge volume with Zyvox IV and Zosyn, but it is renal dose. He came in with sepsis, etiology remains the line, pneumonia and the foot. We will follow. He has acute on chronic renal failure at this time. Tiffany Blancas MD
[2018-01-28] MEDS ORDERED: Albuterol-Ipratrop 3 mg / 0.5 (3 ml) UD INH STA (02:08)
[2018-01-28] MEDS: Piperacill/Tazo 2.25gm in Dex 2.25 GM/50 ML BAG IVPB SCH (05:56)
[2018-01-28 07:05] LABS: BASO % 0.3 % (0.0-2.0); EOS # 1.6 K/uL (0.0-0.7); EOS % 17.8 % (0.0-4.0); LYMPH # 0.7 K/uL (1.0-4.3); LYMPH % 7.4 % (20.0-40.0); MEAN CELL VOLUME 86.3 fL (80.0-94.0); MEAN CORPUSCULAR HEMOGLOBIN 30.2 pg (27.0-31.0); MEAN PLATELET VOLUME 6.9 fL (7.2-11.7); MONO # 0.4 K/uL (0.0-0.8); MONO % 3.9 % (0.0-10.0); NEUT # 6.5 K/uL (1.8-7.0); NEUT % 70.6 % (50.0-75.0); PLATELET COUNT 276 K/uL (130-400); RBC 3.33 Mil/uL (4.40-5.90); RED CELL DISTRIBUTION WIDTH 14.6 % (11.5-14.5); WHITE BLOOD COUNT 9.2 K/uL (4.8-10.8)
[2018-01-28 07:24] LABS: ALB/GLOB RATIO 1.1 (1.0-2.1); ALBUMIN 3.3 g/dL (3.5-5.0); CALCIUM 7.5 mg/dl (8.6-10.4)
[2018-01-28] MEDS: (Novolog) Insulin Aspart, Recombinant 100 u/ml 10 ml vial SC SCH ×4 (07:33→21:10)
[2018-01-28 08:44] LABS: MONOCYTE 3 % (0-10); NEUTROPHIL 75 % (50-75); TOTAL CELLS COUNTED 100
[2018-01-28 08:45] LABS: EOSINOPHIL 13 % (0-4); LYMPHOCYTE 9 % (20-40)
[2018-01-28 08:46] LABS: ANISOCYTOSIS SLIGHT; PLATELET ESTIMATE NORMAL (NORMAL)
[2018-01-28 08:47] LABS: BURR CELLS SLIGHT
[2018-01-28] MEDS: Linezolid 600 mg in D5W 300 ml 600 MG/300 ML BAG IVPB SCH ×2 (11:00→21:11)
[2018-01-28] MEDS: Sodium Chloride 0.9% 1,000 ML IV SCH ×2 (11:15→18:41)
[2018-01-28] MEDS: Aztreonam 1 GM in Sodium Chloride 0.9% 100 ML IVPB SCH ×2 (12:30→19:29)
--- NOTE | 2018-01-28 14:42 | CP.PCM.CON ---
History of Present Illness - History of Present Illness History of Present Illness: patient seen and examined consult dictated MANDY multiple consideraions which include cardiorenal syndrome,acue allergic interstial nephritis ,atn associated with sepsis can not r/o underlying ckd Case discussed with Dr Earnestine Deluna patient aware that dialysis may be necessary To check eosinophil count,urine protein,cpk repeat renal ultrasound to r/o obstruction Past Patient History - Past Medical History & Family History Past Medical History?: Yes - Past Social History Smoking Status: Never Smoked - CARDIAC Hx Hypercholesterolemia: Yes Hx Hypertension: Yes - ENDOCRINE/METABOLIC Hx Endocrine Disorders: Yes Hx Diabetes Mellitus Type 2: Yes - MUSCULOSKELETAL/RHEUMATOLOGICAL Hx Falls: Yes - PSYCHIATRIC Hx Substance Use: No - SURGICAL HISTORY Hx Surgeries: Yes Hx Eye Surgery: Yes - ANESTHESIA Hx Anesthesia: Yes Meds Allergies/Adverse Reactions: Allergies Allergy/AdvReac Type Severity Reaction Status Date / Time No Known Allergies Allergy Verified 12/22/17 15:47 - Medications Medications: Current Medications Acetaminophen (Tylenol 325mg Tab) 975 mg PO ONCE PRN PRN Reason: Fever >100.4 F Last Admin: 01/25/18 00:47 Dose: 975 mg Acetaminophen (Tylenol 325mg Tab) 650 mg PO Q4 [facility] Last Admin: 01/28/18 08:18 Dose: Not Given Amlodipine Besylate (Norvasc) 10 mg PO DAILY [facility] Last Admin: 01/27/18 09:32 Dose: 10 mg Furosemide (Lasix) 80 mg IVP DAILY [facility] Last Admin: 01/28/18 12:09 Dose: 80 mg Heparin Sodium (Porcine) (Heparin) 5,000 units SC Q12 [facility]IA Last Admin: 01/28/18 12:09 Dose: 5,000 units Hydralazine HCl (Apresoline) 50 mg PO Q8 [facility] Last Admin: 01/28/18 13:47 Dose: 50 mg Linezolid (Zyvox 600mg/300ml D5w) 600 mg in 300 mls @ 200 mls/hr IVPB Q12 DIA PRN Reason: Protocol Last Admin: 01/27/18 21:43 Dose: 200 mls/hr Sodium Chloride (Sodium Chloride 0.9%) 1,000 mls @ 80 mls/hr IV .[id number] [facility] Last Admin: 01/27/18 18:42 Dose: 80 mls/hr Aztreonam 1 gm/ Sodium (Chloride) 100 mls @ 200 mls/hr IVPB Q8H DIA PRN Reason: Protocol Last Admin: 01/28/18 12:30 Dose: 200 mls/hr Insulin Aspart (Novolog) 0 unit SC ACHS DIA PRN Reason: Protocol Last Admin: 01/28/18 11:28 Dose: Not Given Pantoprazole Sodium (Protonix Inj) 40 mg IVP DAILY [facility] Last Admin: 01/28/18 12:09 Dose: 40 mg Results - Vital Signs Recent Vital Signs: Last Vital Signs Temp 98.7 F 01/28/18 07:05 Pulse 89 01/28/18 13:46 Resp 22 01/28/18 07:05 BP 141/79 01/28/18 13:46 Pulse Ox 98 01/28/18 07:05 - Labs Result Diagrams: 01/28/18 06:53 01/28/18 06:53 Labs: Laboratory Results - last 24 hr 01/27/18 01/27/18 01/28/18 16:12 20:40 05:59 WBC RBC Hgb Hct MCV MCH MCHC RDW Plt Count MPV Neut % (Auto) Lymph % (Auto) [place] % (Auto) Eos % (Auto) Baso % (Auto) Neut # (Auto) Lymph # (Auto) [place] # (Auto) Eos # (Auto) Baso # (Auto) Neutrophils % (Manual) Lymphocytes % (Manual) Monocytes % (Manual) Eosinophils % (Manual) Platelet Estimate Anisocytosis (manual) Brian Cells Sodium Potassium Chloride Carbon Dioxide Anion Gap BUN Creatinine Est GFR ( Amer) Est GFR (Non-Af Amer) POC Glucose (mg/dL) 160 H 97 145 H Random Glucose Calcium Total Bilirubin AST ALT Alkaline Phosphatase Total Protein Albumin Globulin Albumin/Globulin Ratio Procalcitonin HIV 1&2 Antibody Screen 01/28/18 01/28/18 01/28/18 06:53 06:53 06:53 WBC 9.2 RBC 3.33 L Hgb 10.0 L Hct 28.7 L MCV 86.3 MCH 30.2 MCHC 35.0 RDW 14.6 H Plt Count 276 MPV 6.9 L Neut % (Auto) 70.6 Lymph % (Auto) 7.4 L [place] % (Auto) 3.9 Eos % (Auto) 17.8 H Baso % (Auto) 0.3 Neut # (Auto) 6.5 Lymph # (Auto) 0.7 L [place] # (Auto) 0.4 Eos # (Auto) 1.6 H Baso # (Auto) 0.0 Neutrophils % (Manual) 75 Lymphocytes % (Manual) 9 L Monocytes % (Manual) 3 Eosinophils % (Manual) 13 H Platelet Estimate Normal Anisocytosis (manual) Slight Brian Cells Slight Sodium 134 Potassium 4.7 Chloride 101 Carbon Dioxide 17 L Anion Gap 21 H BUN 48 H Creatinine 6.0 H Est GFR ( Amer) 12 Est GFR (Non-Af Amer) 10 POC Glucose (mg/dL) Random Glucose 116 H Calcium 7.5 L Total Bilirubin 0.6 AST 110 H D ALT 68 Alkaline Phosphatase 141 H D Total Protein 6.4 Albumin 3.3 L Globulin 3.1 Albumin/Globulin Ratio 1.1 Procalcitonin 5.74 H HIV 1&2 Antibody Screen 01/28/18 01/28/18 10:59 11:16 WBC RBC Hgb Hct MCV MCH MCHC RDW Plt Count MPV Neut % (Auto) Lymph % (Auto) [place] % (Auto) Eos % (Auto) Baso % (Auto) Neut # (Auto) Lymph # (Auto) [place] # (Auto) Eos # (Auto) Baso # (Auto) Neutrophils % (Manual) Lymphocytes % (Manual) Monocytes % (Manual) Eosinophils % (Manual) Platelet Estimate Anisocytosis (manual) Brian Cells Sodium Potassium Chloride Carbon Dioxide Anion Gap BUN Creatinine Est GFR ( Amer) Est GFR (Non-Af Amer) POC Glucose (mg/dL) 105 Random Glucose Calcium Total Bilirubin AST ALT Alkaline Phosphatase Total Protein Albumin Globulin Albumin/Globulin Ratio Procalcitonin HIV 1&2 Antibody Screen Negative
--- NOTE | 2018-01-28 15:50 | CP.PCM.PN ---
Subjective - Date & Time of Evaluation Date of Evaluation: 01/28/18 Time of Evaluation: 09:20 - Subjective Subjective: clinically same Objective - Vital Signs/Intake and Output Vital Signs (last 24 hours): Temp Pulse Resp BP Pulse Ox 98.7 F 89 22 141/79 98 01/28/18 07:05 01/28/18 13:46 01/28/18 07:05 01/28/18 13:46 01/28/18 07:05 Intake and Output: 01/28/18 01/28/18 06:59 18:59 Intake Total 2020 Output Total 680 Balance 1340 - Medications Medications: Current Medications Acetaminophen (Tylenol 325mg Tab) 975 mg PO ONCE PRN PRN Reason: Fever >100.4 F Last Admin: 01/25/18 00:47 Dose: 975 mg Acetaminophen (Tylenol 325mg Tab) 650 mg PO Q4 [facility] Last Admin: 01/28/18 08:18 Dose: Not Given Amlodipine Besylate (Norvasc) 10 mg PO DAILY [facility] Last Admin: 01/27/18 09:32 Dose: 10 mg Furosemide (Lasix) 80 mg IVP DAILY [facility] Last Admin: 01/28/18 12:09 Dose: 80 mg Heparin Sodium (Porcine) (Heparin) 5,000 units SC Q12 DIA Last Admin: 01/28/18 12:09 Dose: 5,000 units Hydralazine HCl (Apresoline) 50 mg PO Q8 [facility]IA Last Admin: 01/28/18 13:47 Dose: 50 mg Linezolid (Zyvox 600mg/300ml D5w) 600 mg in 300 mls @ 200 mls/hr IVPB Q12 DIA PRN Reason: Protocol Last Admin: 01/27/18 21:43 Dose: 200 mls/hr Sodium Chloride (Sodium Chloride 0.9%) 1,000 mls @ 80 mls/hr IV .[id number] DIA Last Admin: 01/27/18 18:42 Dose: 80 mls/hr Aztreonam 1 gm/ Sodium (Chloride) 100 mls @ 200 mls/hr IVPB Q8H DIA PRN Reason: Protocol Last Admin: 01/28/18 12:30 Dose: 200 mls/hr Insulin Aspart (Novolog) 0 unit SC ACHS DIA PRN Reason: Protocol Last Admin: 01/28/18 11:28 Dose: Not Given Pantoprazole Sodium (Protonix Inj) 40 mg IVP DAILY [facility]IA Last Admin: 01/28/18 12:09 Dose: 40 mg - Labs Labs: 01/28/18 06:53 01/28/18 06:53 PT 13.3 SECONDS (9.7-12.2) H 01/25/18 00:44 INR 1.2 01/25/18 00:44 APTT 33 SECONDS (21-34) 01/25/18 00:44 - Constitutional Appears: Well - Head Exam Head Exam: ATRAUMATIC, NORMAL INSPECTION, NORMOCEPHALIC - Eye Exam Eye Exam: EOMI, Normal appearance, PERRL Pupil Exam: NORMAL ACCOMODATION, PERRL - ENT Exam ENT Exam: Mucous Membranes Moist, Normal Exam - Neck Exam Neck Exam: Full ROM, Normal Inspection. absent: Lymphadenopathy - Respiratory Exam Respiratory Exam: Decreased Breath Sounds - Cardiovascular Exam Cardiovascular Exam: REGULAR RHYTHM, +S1, +S2 - GI/Abdominal Exam GI & Abdominal Exam: Soft, Diminished Bowel Sounds - Rectal Exam Rectal Exam: Deferred
--- NOTE | 2018-01-28 16:42 | US ---
PROCEDURE: Ultrasound of the Kidneys HISTORY: acute kidney failure r/o obstruction COMPARISON: None available. TECHNIQUE: Sonogram of the kidneys. FINDINGS: RIGHT KIDNEY: Measures: 11.2 cm. Normal in size, contour with diffuse increased cortical echogenicity. No stone, solid mass lesion or hydronephrosis visualized. LEFT KIDNEY: Measures: 12.9 cm. Normal in size, contour with diffuse increased cortical echogenicity. No stone, solid mass lesion or hydronephrosis visualized. OTHER FINDINGS: The urinary bladder is partially distended and there is apparent moderate circumferential mural thickening. The prevoid urinary volume is 120 cc. The postvoid urinary volume is 8.6 cc. Bilateral ureteral jets are not visualized on color flow imaging. There is small abdominal ascites. IMPRESSION: Renal parenchymal disease. Apparent moderate circumferential mural thickening of the bladder wall is nonspecific and could be related to underdistention however cystitis cannot be excluded. Please correlate with urine analysis. Small postvoid residual. Small abdominal ascites.
[2018-01-28 20:15] LABS: CREATININE, RANDOM URINE 61.2 mg/dL
[2018-01-28] MEDS: Albuterol-Ipratrop 3 mg / 0.5 (3 ml) UD INH SCH (21:27)
[2018-01-29] MEDS: Sodium Chloride 0.9% 1,000 ML IV SCH ×2 (00:45→12:22)
[2018-01-29] MEDS: Aztreonam 1 GM in Sodium Chloride 0.9% 100 ML IVPB SCH ×2 (03:34→11:34)
[2018-01-29] MEDS: (Novolog) Insulin Aspart, Recombinant 100 u/ml 10 ml vial SC SCH ×4 (07:05→22:26)
[2018-01-29] MEDS: Albuterol-Ipratrop 3 mg / 0.5 (3 ml) UD INH SCH ×3 (07:24→19:13)
[2018-01-29 07:59] LABS: BASO % 0.4 % (0.0-2.0); EOS # 1.7 K/uL (0.0-0.7); HEMOGLOBIN 9.7 g/dL (12.0-18.0); LYMPH # 0.9 K/uL (1.0-4.3); LYMPH % 9.1 % (20.0-40.0); MEAN CELL VOLUME 86.3 fL (80.0-94.0); MEAN CORPUSCULAR HGB CONC 34.8 g/dL (33.0-37.0); MEAN PLATELET VOLUME 7.1 fL (7.2-11.7); MONO # 0.4 K/uL (0.0-0.8); MONO % 4.2 % (0.0-10.0); NEUT % 69.3 % (50.0-75.0); NRBC % 0.1 % (0.0-2.0); PLATELET COUNT 263 K/uL (130-400); RBC 3.21 Mil/uL (4.40-5.90); WHITE BLOOD COUNT 10.1 K/uL (4.8-10.8)
[2018-01-29 08:19] LABS: ALB/GLOB RATIO 1.1 (1.0-2.1); ALBUMIN 3.4 g/dL (3.5-5.0); CALCIUM 7.6 mg/dl (8.6-10.4)
[2018-01-29 08:51] LABS: HEPATITIS B SURFACE AG Negative (NEGATIVE)
[2018-01-29 08:57] LABS: HEPATITIS A IGM NEGATIVE (NEGATIVE); HEPATITIS B CORE AB NEGATIVE (NEGATIVE)
[2018-01-29 09:09] LABS: HEPATITIS C ANTIBODY NEGATIVE (NEGATIVE)
[2018-01-29 09:18] LABS: EOSINOPHIL 15 % (0-4); LYMPHOCYTE 6 % (20-40); MONOCYTE 2 % (0-10); NEUTROPHIL 77 % (50-75); TOTAL CELLS COUNTED 100
[2018-01-29 09:19] LABS: ANISOCYTOSIS SLIGHT; PLATELET ESTIMATE NORMAL (NORMAL)
[2018-01-29 09:20] LABS: HYPOCHROMIC SLIGHT; POLYCHROMIC SLIGHT
[2018-01-29] MEDS: Linezolid 600 mg in D5W 300 ml 600 MG/300 ML BAG IVPB SCH (09:23)
--- NOTE | 2018-01-29 09:25 | CON ---
DATE: 01/28/2018 ATTENDING PHYSICIAN: Dr. Ricky Deluna. HISTORY OF PRESENT ILLNESS: Mr. Cuevas is a 62-year-old male who has been seen for acute kidney injury. Mr. Cuevas does not speak Afghan. There was no cover creaser available, and the history is obtained from the records and the chart. Mr. Cuevas has a history of hypertension, diabetes, dyslipidemia, peripheral vascular disease with recent amputation of his left great toe in 12/2017. At that time, his creatinine was 0.9. He came to the hospital on 01/25/2018 and was admitted with a diagnosis of pneumonia. On 01/25/2018: His white count was 11,900, hemoglobin 11.2, hematocrit 32.3, platelet count 464,000. Sodium 136, potassium 4.4, chloride 100, CO2 of 18, BUN 32, creatinine 3.7, glucose 200, calcium 8.4. Phosphorus 4.3, magnesium 1.9. Total bilirubin 0.6, AST of 57, ALT of 47, alkaline phosphatase of 70, total protein of 7.6, albumin 4.1. Urine showed 2+ protein, 1+ blood. On 01/26/2018, his BUN was 42 with a creatinine of 4.3. Today, his white count is 9200, his hemoglobin is 10, hematocrit 28.7. Sodium 134, potassium 4.7, chloride 101, BUN 48, creatinine 6, glucose 145, calcium 7.5. Total bilirubin 0.6, albumin 3.3. On 01/25/2018, he had a CT of his chest without contrast which showed pulmonary vascular congestion with [id number] bilateral pleural effusions and some adjacent atelectasis. A renal ultrasound on 01/25/2018 was read as normal without hydronephrosis. Recent blood pressures have been elevated with no fever. PAST MEDICAL HISTORY: Please see the above. ALLERGIES: HE HAS NO ALLERGIES. He has been admitted to [facility] in the past. MEDICATIONS: Include Tylenol, Norvasc, aztreonam, Lasix, heparin, hydralazine, insulin, Zyvox, Protonix, and Zosyn. FAMILY HISTORY: Not available. SOCIAL HISTORY: He denies cigarette use. REVIEW OF SYSTEMS: Not available. PHYSICAL EXAMINATION: GENERAL: He was awake and alert, in no acute distress. VITAL SIGNS: His blood pressure was 141/79. His pulse was 89. His temperature was 98.7. NECK: There was no jugular venous distention at 60 degrees. LUNGS: Revealed distant sounds, prolonged inspiration and expiration, and diminished sounds at the bases. HEART: Rhythm was regular. ABDOMEN: Soft, dull, and nondistended. There was no definite hepatomegaly or palpable bladder. There were no CVA tenderness and 1 to 2+ presacral edema. EXTREMITIES: The left foot was bandaged, and it appeared he had a toe amputation. He moved all his extremities. IMPRESSION AND PLAN: Acute kidney injury, etiology not clear. Considerations include cardiorenal syndrome, acute interstitial nephritis secondary to medications and sepsis if present. Cannot rule out underlying chronic kidney disease. History of diabetes, hypertension, peripheral vascular disease, and congestive heart failure. Discussed further management with attending. Total eosinophil count and urine for eosinophils, urine for protein and creatinine. May require renal replacement therapy, CPK. Thank you for your kind referral. We will continue to follow with you. Renato Clemons MD
--- NOTE | 2018-01-29 09:49 | CP.PCM.PN ---
Subjective - Date & Time of Evaluation Date of Evaluation: 01/29/18 Time of Evaluation: 09:17 - Subjective Subjective: Medicine progress note for Dr. Deluna's service: Patient seen and examined. Patient resting in bed but still dyspneic with minimal conversation. Objective - Vital Signs/Intake and Output Vital Signs (last 24 hours): Temp Pulse Resp BP Pulse Ox 98.6 F 88 20 166/84 H 97 01/29/18 07:00 01/29/18 08:45 01/29/18 07:00 01/29/18 07:00 01/29/18 07:00 Intake and Output: 01/29/18 01/29/18 06:59 18:59 Intake Total 600 Output Total 400 Balance 200 - Medications Medications: Current Medications Acetaminophen (Tylenol 325mg Tab) 975 mg PO ONCE PRN PRN Reason: Fever >100.4 F Last Admin: 01/25/18 00:47 Dose: 975 mg Acetaminophen (Tylenol 325mg Tab) 650 mg PO Q4 [facility] Last Admin: 01/29/18 08:10 Dose: Not Given Albuterol/Ipratropium (Duoneb 3 Mg/0.5 Mg (3 Ml) Ud) 3 ml INH RQ6 DIA Last Admin: 01/29/18 07:24 Dose: 3 ml Amlodipine Besylate (Norvasc) 10 mg PO DAILY [facility]IA Last Admin: 01/28/18 12:09 Dose: 10 mg Furosemide (Lasix) 80 mg IVP DAILY [facility]IA Last Admin: 01/28/18 20:38 Dose: 80 mg Heparin Sodium (Porcine) (Heparin) 5,000 units SC Q12 DIA Last Admin: 01/28/18 21:10 Dose: 5,000 units Hydralazine HCl (Apresoline) 50 mg PO Q8 DIA Last Admin: 01/29/18 06:24 Dose: 50 mg Linezolid (Zyvox 600mg/300ml D5w) 600 mg in 300 mls @ 200 mls/hr IVPB Q12 DIA PRN Reason: Protocol Last Admin: 01/28/18 21:11 Dose: 200 mls/hr Sodium Chloride (Sodium Chloride 0.9%) 1,000 mls @ 80 mls/hr IV .[id number] DIA Last Admin: 01/29/18 00:45 Dose: Not Given Aztreonam 1 gm/ Sodium (Chloride) 100 mls @ 200 mls/hr IVPB Q8H DIA PRN Reason: Protocol Last Admin: 01/29/18 03:34 Dose: 200 mls/hr Insulin Aspart (Novolog) 0 unit SC ACHS DIA PRN Reason: Protocol Last Admin: 01/29/18 07:05 Dose: Not Given Pantoprazole Sodium (Protonix Inj) 40 mg IVP DAILY [facility] Last Admin: 01/28/18 12:09 Dose: 40 mg - Labs Labs: 01/29/18 07:50 01/29/18 07:50 PT 13.3 SECONDS (9.7-12.2) H 01/25/18 00:44 INR 1.2 01/25/18 00:44 APTT 33 SECONDS (21-34) 01/25/18 00:44 - Constitutional Appears: No Acute Distress, Chronically Ill - Head Exam Head Exam: ATRAUMATIC, NORMOCEPHALIC - Eye Exam Eye Exam: EOMI Pupil Exam: PERRL - ENT Exam ENT Exam: Mucous Membranes Moist - Respiratory Exam Respiratory Exam: Decreased Breath Sounds, Clear to Ausculation Bilateral - Cardiovascular Exam Cardiovascular Exam: +S1, +S2 - GI/Abdominal Exam GI & Abdominal Exam: Soft, Normal Bowel Sounds. absent: Tenderness - Extremities Exam Additional comments: left hallux amputation site bandaged 1+ pitting edema b/l lower extremities to ankle - Neurological Exam Neurological Exam: Alert, Awake - Skin Skin Exam: Warm Assessment and Plan - Assessment and Plan (Free Text) Assessment: Leukocytosis WBC today 10.1 Dr. Blancas, ID, consulted- help appreciated SIRS criteria present on admission (01/25): Temperature 101.2F, HR 106 SOFA score approximately 9 (no ABG for PaO2) initial VBG lactate (01/25) 4.1, repeat 1.0 procalcitonin 5.74 suspected possible sources include: line infection from prior PICC line- culture from (01/25) negative bacteremia- blood culture negative after 4 days pneumonia- chest CT negative for infiltrate however patient was dyspneic on admission, sputum culture uncollected urine- (01/25) urine culture negative prior hallux amputation site- podiatry team, Dr. Logan, consulted- recommendations appreciated patient on antibiotics: zyvox 600mg IVPB 12h (started 01/25) aztreonam 1gam IVPB q8h (started 01/28) patient previously on antibiotics: gentamicin 120mg x 1 dose (01/25) vancomycin x 1 dose (01/25) zosyn (01/25- 01/28) medications adjusted due to kidney function MANDY Dr. Burger, nephrology, consulted- help appreciated possible etiologies include cardiorenal syndrome, acute allergic interstitial nephritis creatinine rising, today 5.7, was 3.7 on (01/25), creatinine baseline 0.9 end of December 2017/ beginning January 2018 urine protein 50.0 urine eosinophil count pending Bladder US: renal parenchymal disease Dyspnea CT Chest: pulmonary vascular congestion with small to moderate bilateral pleural effusions and subjacent atelectasis (see full report) continue lasix 80mg IVP daily BNP 9070 no echocardiogram in our EMR Transaminitis AST/ ALT/ Alk phos increasing, today 175/ 121/180 T. Bili not elevated at 0.7 hepatitis A & B negative Hepatitis C negative RPR, HIV negative HTN hydralazine 50mg PO Q8h norvasc 10mg PO daily DM ISS Accucheck ACHS A1c 7.0 in 12/2017 holding all PO meds currently due to renal function Prophylactic measure heparin 5,000unit Q12h (renal dosing) protonix 40mg IVP daily All medical management as per Dr. Deluna
--- NOTE | 2018-01-29 11:49 | CP.PCM.CON ---
History of Present Illness - History of Present Illness History of Present Illness: Podiary note for Dr. Logan 62 yo male patient 4 weeks s/p left foot partial hallux amputation with PMHx of DM, HTN, HLD was seen at bedside this morning after request for podiatry consultation. Patient was originally being treated by Dr. Atul FELIX who noticed left hallux gangrene and sent the patient to [facility]. Dr. Logan performed left hallux partial amputation on 01/03/2018. Patient denies experiencing any N/V /F/C or sOB today. No dressing found to left lower extremity, surgical site appears stable. Past Patient History - Past Medical History & Family History Past Medical History?: Yes - Past Social History Smoking Status: Never Smoked - CARDIAC Hx Hypercholesterolemia: Yes Hx Hypertension: Yes - ENDOCRINE/METABOLIC Hx Endocrine Disorders: Yes Hx Diabetes Mellitus Type 2: Yes - MUSCULOSKELETAL/RHEUMATOLOGICAL Hx Falls: Yes - PSYCHIATRIC Hx Substance Use: No - SURGICAL HISTORY Hx Surgeries: Yes Hx Eye Surgery: Yes - ANESTHESIA Hx Anesthesia: Yes Meds Allergies/Adverse Reactions: Allergies Allergy/AdvReac Type Severity Reaction Status Date / Time No Known Allergies Allergy Verified 12/22/17 15:47 - Medications Medications: Current Medications Acetaminophen (Tylenol 325mg Tab) 975 mg PO ONCE PRN PRN Reason: Fever >100.4 F Last Admin: 01/25/18 00:47 Dose: 975 mg Acetaminophen (Tylenol 325mg Tab) 650 mg PO Q4 [facility] Last Admin: 01/29/18 08:10 Dose: Not Given Albuterol/Ipratropium (Duoneb 3 Mg/0.5 Mg (3 Ml) Ud) 3 ml INH RQ6 DIA Last Admin: 01/29/18 07:24 Dose: 3 ml Amlodipine Besylate (Norvasc) 10 mg PO DAILY DIA Last Admin: 01/29/18 09:24 Dose: 10 mg Furosemide (Lasix) 80 mg IVP DAILY [facility] Last Admin: 01/29/18 09:24 Dose: 80 mg Heparin Sodium (Porcine) (Heparin) 5,000 units SC Q12 DIA Last Admin: 01/29/18 09:24 Dose: 5,000 units Hydralazine HCl (Apresoline) 50 mg PO Q8 [facility] Last Admin: 01/29/18 06:24 Dose: 50 mg Linezolid (Zyvox 600mg/300ml D5w) 600 mg in 300 mls @ 200 mls/hr IVPB Q12 DIA PRN Reason: Protocol Last Admin: 01/29/18 09:23 Dose: 200 mls/hr Sodium Chloride (Sodium Chloride 0.9%) 1,000 mls @ 80 mls/hr IV .[id number] [facility] Last Admin: 01/29/18 00:45 Dose: Not Given Aztreonam 1 gm/ Sodium (Chloride) 100 mls @ 200 mls/hr IVPB Q24H DIA PRN Reason: Protocol Insulin Aspart (Novolog) 0 unit SC ACHS DIA PRN Reason: Protocol Last Admin: 01/29/18 07:05 Dose: Not Given Pantoprazole Sodium (Protonix Inj) 40 mg IVP DAILY [facility] Last Admin: 01/29/18 09:24 Dose: 40 mg Physical Exam - Constitutional Appears: Well, Non-toxic, No Acute Distress - Head Exam Head Exam: ATRAUMATIC - Extremities Exam Additional comments: Left lower extremity exam DERM: Surgical site to left hallux appears well coapted with all sutures intact. No wound dehiscence is noted. No purulent drainage is noted. No mal- odor is noted. No probe to bone, no drainage. No sign of infection is noted. VASC: Nonpalpable DP, PT noted to Left foot. Palpable DP and PT noted to Right foot NEURO: Gross sensation intact - Neurological Exam Neurological exam: Alert, Oriented x3 - Psychiatric Exam Psychiatric exam: Normal Affect, Normal Mood Results - Vital Signs Recent Vital Signs: Last Vital Signs Temp 98.6 F 01/29/18 07:00 Pulse 88 01/29/18 08:45 Resp 20 01/29/18 07:00 BP 166/84 H 01/29/18 09:24 Pulse Ox 97 01/29/18 07:00 - Labs Result Diagrams: 01/29/18 07:50 01/29/18 07:50 Labs: Laboratory Results - last 24 hr 01/28/18 01/28/18 01/28/18 06:53 11:16 11:16 WBC RBC Hgb Hct MCV MCH MCHC RDW Plt Count MPV Neut % (Auto) Lymph % (Auto) [place] % (Auto) Eos % (Auto) Baso % (Auto) Neut # (Auto) Lymph # (Auto) [place] # (Auto) Eos # (Auto) Baso # (Auto) Neutrophils % (Manual) Lymphocytes % (Manual) Monocytes % (Manual) Eosinophils % (Manual) Platelet Estimate Polychromasia Hypochromasia (manual) Anisocytosis (manual) Sodium Potassium Chloride Carbon Dioxide Anion Gap BUN Creatinine Est GFR ( Amer) Est GFR (Non-Af Amer) POC Glucose (mg/dL) Random Glucose Calcium Total Bilirubin AST ALT Alkaline Phosphatase Total Creatine Kinase Total Protein Albumin Globulin Albumin/Globulin Ratio Procalcitonin 5.74 H Urine Eosinophils Ur Random Creatinine U Random Total Protein RPR Hepatitis A IgM Ab Negative Hep Bs Antigen Negative Hep Bs Antibody Hep B Core IgM Ab Negative Hepatitis C Antibody Negative HIV 1&2 Antibody Screen Negative 01/28/18 01/28/18 01/28/18 11:16 11:16 11:16 WBC RBC Hgb Hct MCV MCH MCHC RDW Plt Count MPV Neut % (Auto) Lymph % (Auto) [place] % (Auto) Eos % (Auto) Baso % (Auto) Neut # (Auto) Lymph # (Auto) [place] # (Auto) Eos # (Auto) Baso # (Auto) Neutrophils % (Manual) Lymphocytes % (Manual) Monocytes % (Manual) Eosinophils % (Manual) Platelet Estimate Polychromasia Hypochromasia (manual) Anisocytosis (manual) Sodium Potassium Chloride Carbon Dioxide Anion Gap BUN Creatinine Est GFR ( Amer) Est GFR (Non-Af Amer) POC Glucose (mg/dL) Random Glucose Calcium Total Bilirubin AST ALT Alkaline Phosphatase Total Creatine Kinase 399 H Total Protein Albumin Globulin Albumin/Globulin Ratio Procalcitonin Urine Eosinophils Ur Random Creatinine U Random Total Protein RPR Nonreactive Hepatitis A IgM Ab Hep Bs Antigen Hep Bs Antibody Negative Hep B Core IgM Ab Hepatitis C Antibody HIV 1&2 Antibody Screen 01/28/18 01/28/18 01/28/18 16:41 19:43 19:43 WBC RBC Hgb Hct MCV MCH MCHC RDW Plt Count MPV Neut % (Auto) Lymph % (Auto) [place] % (Auto) Eos % (Auto) Baso % (Auto) Neut # (Auto) Lymph # (Auto) [place] # (Auto) Eos # (Auto) Baso # (Auto) Neutrophils % (Manual) Lymphocytes % (Manual) Monocytes % (Manual) Eosinophils % (Manual) Platelet Estimate Polychromasia Hypochromasia (manual) Anisocytosis (manual) Sodium Potassium Chloride Carbon Dioxide Anion Gap BUN Creatinine Est GFR ( Amer) Est GFR (Non-Af Amer) POC Glucose (mg/dL) 154 H Random Glucose Calcium Total Bilirubin AST ALT Alkaline Phosphatase Total Creatine Kinase Total Protein Albumin Globulin Albumin/Globulin Ratio Procalcitonin Urine Eosinophils Negative Ur Random Creatinine 61.2 U Random Total Protein 50.0 H RPR Hepatitis A IgM Ab Hep Bs Antigen Hep Bs Antibody Hep B Core IgM Ab Hepatitis C Antibody HIV 1&2 Antibody Screen 01/28/18 01/29/18 01/29/18 20:57 06:25 07:50 WBC 10.1 RBC 3.21 L Hgb 9.7 L Hct 27.7 L MCV 86.3 MCH 30.0 MCHC 34.8 RDW 15.0 H Plt Count 263 MPV 7.1 L Neut % (Auto) 69.3 Lymph % (Auto) 9.1 L [place] % (Auto) 4.2 Eos % (Auto) 17.0 H Baso % (Auto) 0.4 Neut # (Auto) 7.0 Lymph # (Auto) 0.9 L [place] # (Auto) 0.4 Eos # (Auto) 1.7 H Baso # (Auto) 0.0 Neutrophils % (Manual) 77 H Lymphocytes % (Manual) 6 L Monocytes % (Manual) 2 Eosinophils % (Manual) 15 H Platelet Estimate Normal Polychromasia Slight Hypochromasia (manual) Slight Anisocytosis (manual) Slight Sodium Potassium Chloride Carbon Dioxide Anion Gap BUN Creatinine Est GFR ( Amer) Est GFR (Non-Af Amer) POC Glucose (mg/dL) 149 H 150 H Random Glucose Calcium Total Bilirubin AST ALT Alkaline Phosphatase Total Creatine Kinase Total Protein Albumin Globulin Albumin/Globulin Ratio Procalcitonin Urine Eosinophils Ur Random Creatinine U Random Total Protein RPR Hepatitis A IgM Ab Hep Bs Antigen Hep Bs Antibody Hep B Core IgM Ab Hepatitis C Antibody HIV 1&2 Antibody Screen 01/29/18 07:50 WBC RBC Hgb Hct MCV MCH MCHC RDW Plt Count MPV Neut % (Auto) Lymph % (Auto) [place] % (Auto) Eos % (Auto) Baso % (Auto) Neut # (Auto) Lymph # (Auto) [place] # (Auto) Eos # (Auto) Baso # (Auto) Neutrophils % (Manual) Lymphocytes % (Manual) Monocytes % (Manual) Eosinophils % (Manual) Platelet Estimate Polychromasia Hypochromasia (manual) Anisocytosis (manual) Sodium 134 Potassium 4.5 Chloride 101 Carbon Dioxide 17 L Anion Gap 20 BUN 51 H Creatinine 5.7 H Est GFR ( Amer) 12 Est GFR (Non-Af Amer) 10 POC Glucose (mg/dL) Random Glucose 149 H Calcium 7.6 L Total Bilirubin 0.7 AST 175 H D ALT 121 H D Alkaline Phosphatase 180 H D Total Creatine Kinase Total Protein 6.5 Albumin 3.4 L Globulin 3.0 Albumin/Globulin Ratio 1.1 Procalcitonin Urine Eosinophils Ur Random Creatinine U Random Total Protein RPR Hepatitis A IgM Ab Hep Bs Antigen Hep Bs Antibody Hep B Core IgM Ab Hepatitis C Antibody HIV 1&2 Antibody Screen Assessment & Plan - Assessment and Plan (Free Text) Assessment: 62 yo male patient 4 weeks s/p Left hallux partial amputation Plan: Patient was seen, evaluated at bedside Labs and vitals reviewed; WBC 10.1 discussed in detail with attending Dr. Logan Left foot dressed with Betadine Soaked DSD, Kerlix Podiatry will continue to follow in-house
--- NOTE | 2018-01-29 12:51 | CP.PCM.PN ---
Subjective - Date & Time of Evaluation Date of Evaluation: 01/29/18 Time of Evaluation: 12:48 - Subjective Subjective: More dyspneic, appears in moderate distress Renal function worsening discussed with sister- advised dialysis- family agrees for dialysis will try to make arrangements Objective - Vital Signs/Intake and Output Vital Signs (last 24 hours): Temp Pulse Resp BP Pulse Ox 98.6 F 88 20 166/84 H 97 01/29/18 07:00 01/29/18 08:45 01/29/18 07:00 01/29/18 09:24 01/29/18 07:00 Intake and Output: 01/29/18 01/29/18 06:59 18:59 Intake Total 600 Output Total 400 Balance 200 - Medications Medications: Current Medications Acetaminophen (Tylenol 325mg Tab) 975 mg PO ONCE PRN PRN Reason: Fever >100.4 F Last Admin: 01/25/18 00:47 Dose: 975 mg Acetaminophen (Tylenol 325mg Tab) 650 mg PO Q4 [facility] Last Admin: 01/29/18 08:10 Dose: Not Given Albuterol/Ipratropium (Duoneb 3 Mg/0.5 Mg (3 Ml) Ud) 3 ml INH RQ6 [facility] Last Admin: 01/29/18 07:24 Dose: 3 ml Amlodipine Besylate (Norvasc) 10 mg PO DAILY DIA Last Admin: 01/29/18 09:24 Dose: 10 mg Furosemide (Lasix) 80 mg IVP DAILY DIA Last Admin: 01/29/18 09:24 Dose: 80 mg Heparin Sodium (Porcine) (Heparin) 5,000 units SC Q12 DIA Last Admin: 01/29/18 09:24 Dose: 5,000 units Hydralazine HCl (Apresoline) 50 mg PO Q8 DIA Last Admin: 01/29/18 06:24 Dose: 50 mg Linezolid (Zyvox 600mg/300ml D5w) 600 mg in 300 mls @ 200 mls/hr IVPB Q12 DIA PRN Reason: Protocol Last Admin: 01/29/18 09:23 Dose: 200 mls/hr Sodium Chloride (Sodium Chloride 0.9%) 1,000 mls @ 80 mls/hr IV .[id number] [facility] Last Admin: 01/29/18 12:22 Dose: Not Given Aztreonam 1 gm/ Sodium (Chloride) 100 mls @ 200 mls/hr IVPB Q24H DIA PRN Reason: Protocol Insulin Aspart (Novolog) 0 unit SC ACHS DIA PRN Reason: Protocol Last Admin: 01/29/18 07:05 Dose: Not Given Pantoprazole Sodium (Protonix Inj) 40 mg IVP DAILY [facility] Last Admin: 01/29/18 09:24 Dose: 40 mg - Labs Labs: 01/29/18 07:50 01/29/18 07:50 PT 13.3 SECONDS (9.7-12.2) H 01/25/18 00:44 INR 1.2 01/25/18 00:44 APTT 33 SECONDS (21-34) 01/25/18 00:44 - Constitutional Appears: In Acute Distress, Chronically Ill - Head Exam Head Exam: ATRAUMATIC, NORMAL INSPECTION - Eye Exam Eye Exam: EOMI, Normal appearance - Neck Exam Neck Exam: Normal Inspection. absent: Tenderness - Respiratory Exam Respiratory Exam: Rhonchi, Respiratory Distress - Cardiovascular Exam Cardiovascular Exam: REGULAR RHYTHM, +S1 - GI/Abdominal Exam GI & Abdominal Exam: Soft. absent: Tenderness - Extremities Exam Extremities Exam: Normal Inspection, Pedal Edema - Neurological Exam Neurological Exam: Awake, CN II-XII Intact - Skin Skin Exam: Dry, Warm Assessment and Plan (1) MANDY (acute kidney injury) Status: Acute (2) Type 2 diabetes mellitus with diabetic nephropathy Status: Acute (3) Fever Status: Acute (4) Diabetes 1.5, managed as type 2 Status: Acute (5) Nonhealing ulcer of left lower extremity Status: Acute - Assessment and Plan (Free Text) Plan: Will make arrangements for dialysis today Sister understands and gave consent
--- NOTE | 2018-01-29 14:04 | CP.PCM.PN ---
Subjective - Date & Time of Evaluation Date of Evaluation: 01/29/18 Time of Evaluation: 02:00 - Subjective Subjective: dictated Objective - Vital Signs/Intake and Output Vital Signs (last 24 hours): Temp Pulse Resp BP Pulse Ox 98.6 F 88 20 166/84 H 97 01/29/18 07:00 01/29/18 08:45 01/29/18 07:00 01/29/18 09:24 01/29/18 07:00 Intake and Output: 01/29/18 01/29/18 06:59 18:59 Intake Total 600 Output Total 400 Balance 200 - Medications Medications: Current Medications Acetaminophen (Tylenol 325mg Tab) 975 mg PO ONCE PRN PRN Reason: Fever >100.4 F Last Admin: 01/25/18 00:47 Dose: 975 mg Acetaminophen (Tylenol 325mg Tab) 650 mg PO Q4 [facility] Last Admin: 01/29/18 08:10 Dose: Not Given Albuterol/Ipratropium (Duoneb 3 Mg/0.5 Mg (3 Ml) Ud) 3 ml INH RQ6 DIA Last Admin: 01/29/18 13:31 Dose: 3 ml Amlodipine Besylate (Norvasc) 10 mg PO DAILY DIA Last Admin: 01/29/18 09:24 Dose: 10 mg Furosemide (Lasix) 80 mg IVP DAILY DIA Last Admin: 01/29/18 09:24 Dose: 80 mg Heparin Sodium (Porcine) (Heparin) 5,000 units SC Q12 DIA Last Admin: 01/29/18 09:24 Dose: 5,000 units Hydralazine HCl (Apresoline) 50 mg PO Q8 DIA Last Admin: 01/29/18 06:24 Dose: 50 mg Aztreonam 1 gm/ Sodium (Chloride) 100 mls @ 200 mls/hr IVPB Q24H DIA PRN Reason: Protocol Insulin Aspart (Novolog) 0 unit SC ACHS DIA PRN Reason: Protocol Last Admin: 01/29/18 07:05 Dose: Not Given Linezolid (Zyvox) 600 mg PO BID DIA PRN Reason: Protocol Pantoprazole Sodium (Protonix Inj) 40 mg IVP DAILY [facility] Last Admin: 01/29/18 09:24 Dose: 40 mg - Labs Labs: 01/29/18 07:50 01/29/18 07:50 PT 13.3 SECONDS (9.7-12.2) H 01/25/18 00:44 INR 1.2 01/25/18 00:44 APTT 33 SECONDS (21-34) 01/25/18 00:44
--- NOTE | 2018-01-29 17:11 | CP.PCM.CON ---
History of Present Illness - History of Present Illness History of Present Illness: SURGERY CONSULT NOTE FOR DR. HAYWOOD 62M presents to left toe infection and acute kidney injury. Vascular surgery consulted for dialysis access. Patient to receive permacath. PMH: DM, HTN, HLD PSH: Left hallux toe amp Allergies: NKDA Past Patient History - Past Medical History & Family History Past Medical History?: Yes - Past Social History Smoking Status: Never Smoked - CARDIAC Hx Hypercholesterolemia: Yes Hx Hypertension: Yes - ENDOCRINE/METABOLIC Hx Endocrine Disorders: Yes Hx Diabetes Mellitus Type 2: Yes - MUSCULOSKELETAL/RHEUMATOLOGICAL Hx Falls: Yes - PSYCHIATRIC Hx Substance Use: No - SURGICAL HISTORY Hx Surgeries: Yes Hx Eye Surgery: Yes - ANESTHESIA Hx Anesthesia: Yes Meds Allergies/Adverse Reactions: Allergies Allergy/AdvReac Type Severity Reaction Status Date / Time No Known Allergies Allergy Verified 12/22/17 15:47 - Medications Medications: Current Medications Acetaminophen (Tylenol 325mg Tab) 975 mg PO ONCE PRN PRN Reason: Fever >100.4 F Last Admin: 01/25/18 00:47 Dose: 975 mg Acetaminophen (Tylenol 325mg Tab) 650 mg PO Q4 [facility] Last Admin: 01/29/18 13:00 Dose: Not Given Albuterol/Ipratropium (Duoneb 3 Mg/0.5 Mg (3 Ml) Ud) 3 ml INH RQ6 DIA Last Admin: 01/29/18 13:31 Dose: 3 ml Amlodipine Besylate (Norvasc) 10 mg PO DAILY DIA Last Admin: 01/29/18 09:24 Dose: 10 mg Furosemide (Lasix) 80 mg IVP DAILY DIA Last Admin: 01/29/18 09:24 Dose: 80 mg Heparin Sodium (Porcine) (Heparin) 5,000 units SC Q12 DIA Last Admin: 01/29/18 09:24 Dose: 5,000 units Hydralazine HCl (Apresoline) 50 mg PO Q8 [facility] Last Admin: 01/29/18 14:25 Dose: 50 mg Aztreonam 1 gm/ Sodium (Chloride) 100 mls @ 200 mls/hr IVPB Q24H DIA PRN Reason: Protocol Insulin Aspart (Novolog) 0 unit SC ACHS DIA PRN Reason: Protocol Last Admin: 01/29/18 12:30 Dose: Not Given Linezolid (Zyvox) 600 mg PO BID DIA PRN Reason: Protocol Pantoprazole Sodium (Protonix Inj) 40 mg IVP DAILY [facility] Last Admin: 01/29/18 09:24 Dose: 40 mg Physical Exam - Constitutional Appears: Non-toxic, No Acute Distress - Eye Exam Eye Exam: EOMI, PERRL - Respiratory Exam Respiratory Exam: Clear to Auscultation Bilateral, NORMAL BREATHING PATTERN - Cardiovascular Exam Cardiovascular Exam: REGULAR RHYTHM, +S1, +S2 - GI/Abdominal Exam GI & Abdominal Exam: Soft. absent: Distended, Firm, Guarding, Rebound, Rigid, Tenderness - Extremities Exam Additional comments: left hallux toe amputation - Skin Skin Exam: Dry, Intact, Normal Color, Warm Results - Vital Signs Recent Vital Signs: Last Vital Signs Temp 99.9 F H 01/29/18 15:39 Pulse 92 H 01/29/18 15:39 Resp 20 01/29/18 15:39 BP 160/82 H 01/29/18 15:39 Pulse Ox 99 01/29/18 15:39 - Labs Result Diagrams: 01/29/18 07:50 01/29/18 07:50 Labs: Laboratory Results - last 24 hr 01/28/18 01/28/18 01/28/18 11:16 11:16 11:16 WBC RBC Hgb Hct MCV MCH MCHC RDW Plt Count MPV Neut % (Auto) Lymph % (Auto) [place] % (Auto) Eos % (Auto) Baso % (Auto) Neut # (Auto) Lymph # (Auto) [place] # (Auto) Eos # (Auto) Baso # (Auto) Neutrophils % (Manual) Lymphocytes % (Manual) Monocytes % (Manual) Eosinophils % (Manual) Platelet Estimate Polychromasia Hypochromasia (manual) Anisocytosis (manual) Sodium Potassium Chloride Carbon Dioxide Anion Gap BUN Creatinine Est GFR ( Amer) Est GFR (Non-Af Amer) POC Glucose (mg/dL) Random Glucose Calcium Total Bilirubin AST ALT Alkaline Phosphatase Total Creatine Kinase Total Protein Albumin Globulin Albumin/Globulin Ratio Urine Eosinophils Ur Random Creatinine U Random Total Protein RPR Nonreactive Hepatitis A IgM Ab Negative Hep Bs Antigen Negative Hep Bs Antibody Negative Hep B Core IgM Ab Negative Hepatitis C Antibody Negative 01/28/18 01/28/18 01/28/18 11:16 19:43 19:43 WBC RBC Hgb Hct MCV MCH MCHC RDW Plt Count MPV Neut % (Auto) Lymph % (Auto) [place] % (Auto) Eos % (Auto) Baso % (Auto) Neut # (Auto) Lymph # (Auto) [place] # (Auto) Eos # (Auto) Baso # (Auto) Neutrophils % (Manual) Lymphocytes % (Manual) Monocytes % (Manual) Eosinophils % (Manual) Platelet Estimate Polychromasia Hypochromasia (manual) Anisocytosis (manual) Sodium Potassium Chloride Carbon Dioxide Anion Gap BUN Creatinine Est GFR ( Amer) Est GFR (Non-Af Amer) POC Glucose (mg/dL) Random Glucose Calcium Total Bilirubin AST ALT Alkaline Phosphatase Total Creatine Kinase 399 H Total Protein Albumin Globulin Albumin/Globulin Ratio Urine Eosinophils Negative Ur Random Creatinine 61.2 U Random Total Protein 50.0 H RPR Hepatitis A IgM Ab Hep Bs Antigen Hep Bs Antibody Hep B Core IgM Ab Hepatitis C Antibody 01/28/18 01/29/18 01/29/18 20:57 06:25 07:50 WBC 10.1 RBC 3.21 L Hgb 9.7 L Hct 27.7 L MCV 86.3 MCH 30.0 MCHC 34.8 RDW 15.0 H Plt Count 263 MPV 7.1 L Neut % (Auto) 69.3 Lymph % (Auto) 9.1 L [place] % (Auto) 4.2 Eos % (Auto) 17.0 H Baso % (Auto) 0.4 Neut # (Auto) 7.0 Lymph # (Auto) 0.9 L [place] # (Auto) 0.4 Eos # (Auto) 1.7 H Baso # (Auto) 0.0 Neutrophils % (Manual) 77 H Lymphocytes % (Manual) 6 L Monocytes % (Manual) 2 Eosinophils % (Manual) 15 H Platelet Estimate Normal Polychromasia Slight Hypochromasia (manual) Slight Anisocytosis (manual) Slight Sodium Potassium Chloride Carbon Dioxide Anion Gap BUN Creatinine Est GFR ( Amer) Est GFR (Non-Af Amer) POC Glucose (mg/dL) 149 H 150 H Random Glucose Calcium Total Bilirubin AST ALT Alkaline Phosphatase Total Creatine Kinase Total Protein Albumin Globulin Albumin/Globulin Ratio Urine Eosinophils Ur Random Creatinine U Random Total Protein RPR Hepatitis A IgM Ab Hep Bs Antigen Hep Bs Antibody Hep B Core IgM Ab Hepatitis C Antibody 01/29/18 01/29/18 07:50 16:40 WBC RBC Hgb Hct MCV MCH MCHC RDW Plt Count MPV Neut % (Auto) Lymph % (Auto) [place] % (Auto) Eos % (Auto) Baso % (Auto) Neut # (Auto) Lymph # (Auto) [place] # (Auto) Eos # (Auto) Baso # (Auto) Neutrophils % (Manual) Lymphocytes % (Manual) Monocytes % (Manual) Eosinophils % (Manual) Platelet Estimate Polychromasia Hypochromasia (manual) Anisocytosis (manual) Sodium 134 Potassium 4.5 Chloride 101 Carbon Dioxide 17 L Anion Gap 20 BUN 51 H Creatinine 5.7 H Est GFR ( Amer) 12 Est GFR (Non-Af Amer) 10 POC Glucose (mg/dL) 226 H Random Glucose 149 H Calcium 7.6 L Total Bilirubin 0.7 AST 175 H D ALT 121 H D Alkaline Phosphatase 180 H D Total Creatine Kinase Total Protein 6.5 Albumin 3.4 L Globulin 3.0 Albumin/Globulin Ratio 1.1 Urine Eosinophils Ur Random Creatinine U Random Total Protein RPR Hepatitis A IgM Ab Hep Bs Antigen Hep Bs Antibody Hep B Core IgM Ab Hepatitis C Antibody Assessment & Plan - Assessment and Plan (Free Text) Assessment: 62M with acute kidney injury, needs dialysis Plan: - permacath placement for dialysis today -Further recs discuss with Dr. Estrellita Moreno, PGY2
--- NOTE | 2018-01-29 20:55 | CP.PCM.PN ---
Subjective - Date & Time of Evaluation Date of Evaluation: 01/29/18 Time of Evaluation: 09:00 - Subjective Subjective: clinically same Objective - Vital Signs/Intake and Output Vital Signs (last 24 hours): Temp Pulse Resp BP Pulse Ox 99.9 F H 92 H 20 160/82 H 99 01/29/18 17:23 01/29/18 15:39 01/29/18 15:39 01/29/18 15:39 01/29/18 15:39 - Medications Medications: Current Medications Acetaminophen (Tylenol 325mg Tab) 975 mg PO ONCE PRN PRN Reason: Fever >100.4 F Last Admin: 01/25/18 00:47 Dose: 975 mg Acetaminophen (Tylenol 325mg Tab) 650 mg PO Q4 [facility] Last Admin: 01/29/18 17:23 Dose: 650 mg Albuterol/Ipratropium (Duoneb 3 Mg/0.5 Mg (3 Ml) Ud) 3 ml INH RQ6 DIA Last Admin: 01/29/18 19:13 Dose: 3 ml Amlodipine Besylate (Norvasc) 10 mg PO DAILY DIA Last Admin: 01/29/18 09:24 Dose: 10 mg Furosemide (Lasix) 80 mg IVP DAILY DIA Last Admin: 01/29/18 09:24 Dose: 80 mg Heparin Sodium (Porcine) (Heparin) 5,000 units SC Q12 DIA Last Admin: 01/29/18 09:24 Dose: 5,000 units Hydralazine HCl (Apresoline) 50 mg PO Q8 [facility] Last Admin: 01/29/18 14:25 Dose: 50 mg Aztreonam 1 gm/ Sodium (Chloride) 100 mls @ 200 mls/hr IVPB Q24H DIA PRN Reason: Protocol Insulin Aspart (Novolog) 0 unit SC ACHS DIA PRN Reason: Protocol Last Admin: 01/29/18 17:23 Dose: 2 unit Linezolid (Zyvox) 600 mg PO BID DIA PRN Reason: Protocol Pantoprazole Sodium (Protonix Inj) 40 mg IVP DAILY [facility] Last Admin: 01/29/18 09:24 Dose: 40 mg - Labs Labs: 01/29/18 07:50 01/29/18 07:50 PT 13.3 SECONDS (9.7-12.2) H 01/25/18 00:44 INR 1.2 01/25/18 00:44 APTT 33 SECONDS (21-34) 01/25/18 00:44 - Constitutional Appears: Well - Head Exam Head Exam: ATRAUMATIC, NORMAL INSPECTION, NORMOCEPHALIC - Eye Exam Eye Exam: EOMI, Normal appearance, PERRL Pupil Exam: NORMAL ACCOMODATION, PERRL - ENT Exam ENT Exam: Mucous Membranes Moist, Normal Exam - Neck Exam Neck Exam: Full ROM, Normal Inspection. absent: Lymphadenopathy - Respiratory Exam Respiratory Exam: Decreased Breath Sounds - Cardiovascular Exam Cardiovascular Exam: REGULAR RHYTHM, +S1, +S2 - GI/Abdominal Exam GI & Abdominal Exam: Soft, Diminished Bowel Sounds - Rectal Exam Rectal Exam: Deferred
--- NOTE | 2018-01-30 01:17 | PN ---
DATE: 01/29/2018 SUBJECTIVE: The patient's sister was at the bedside. The patient has been getting respiratory treatment as she was wheezing, and the patient wanted to go to the bathroom where he appeared very unsteady, so we asked for a bedside commode, and I will discontinue the IV antibiotics as he is waiting to get a dialysis catheter as he is with volume overload. PHYSICAL EXAMINATION: VITAL SIGNS: T-max is 99.9, pulse 92, blood pressure 160/82, respirations are 20. GENERAL: He is, however, alert and awake. HEENT: Head is atraumatic, normocephalic. NECK: Supple. LUNGS: Have bilateral occasional wheeze. HEART: S1, S2 are regular. ABDOMEN: Soft and nontender. No guarding, no rigidity present. EXTREMITIES: Both legs are with edema. We looked at the great toe, which had the surgery, amputated with the proximal phalanx. The postsurgical hallux left side showed all sutures were intact. There was no cellulitis. No redness. No discharge. No signs of infection, just had some postop swelling. So, it appeared unremarkable, and it was seen by the mail processing clerk also today, reopened the dressing anyway because the sister wanted to see also. LABORATORY DATA: Labs show white count is 10.1, hemoglobin 9.7, hematocrit 27.7, platelet count is 263, neutrophils are 77, lymphs are 6. CO2 is 17, creatinine is 5.7, is high, and glucose was 229. CPK has been 399 on 01/28/2018. Urine eosinophils came out negative. The patient is being seen by Dr. Burger, and he will need dialysis and they are waiting to place a catheter when I saw the patient, and he also had a bladder ultrasound yesterday, which showed renal parenchymal disease, apparent moderate circumferential mural thickening of the bladder wall is nonspecific and could be related to under distention; however, cystitis cannot be excluded. Consider with urinalysis, small postvoid residual, so he did not have much residual, had small ascites, so I think he has been retaining fluid, so we will hold the fluid. I discontinued the IV fluids. He is still on Lasix, which needs to be determined with the renal attending. Otherwise, I will also change the Zyvox IV to p.o., so that the fluid intake would decrease as such, and hopefully, his acute renal failure would improve with dialysis. Toe looks better, and he was having shakes and chills before, but now he says they are little better. So, I am suspecting that he had probably Lyme sepsis, but we could not record any cultures positive as he was all along on antibiotics. He has now CHF, I doubt it is pneumonia, but we will cover with antibiotics at this time. I have also changed Zosyn to Azactam 1 gm daily, and we will follow with the consultants. Tiffany Blancas MD
[2018-01-30] MEDS: Albuterol-Ipratrop 3 mg / 0.5 (3 ml) UD INH SCH ×4 (01:54→19:49)
[2018-01-30] MEDS: Aztreonam 1 GM in Sodium Chloride 0.9% 100 ML IVPB SCH (02:32)
[2018-01-30 07:16] LABS: BASO # 0.1 K/uL (0.0-0.2); BASO % 0.7 % (0.0-2.0); EOS # 2.1 K/uL (0.0-0.7); HEMOGLOBIN 9.2 g/dL (12.0-18.0); LYMPH # 1.2 K/uL (1.0-4.3); LYMPH % 12.1 % (20.0-40.0); MEAN CORPUSCULAR HEMOGLOBIN 29.8 pg (27.0-31.0); MEAN CORPUSCULAR HGB CONC 34.6 g/dL (33.0-37.0); MEAN PLATELET VOLUME 7.1 fL (7.2-11.7); MONO # 0.4 K/uL (0.0-0.8); MONO % 4.4 % (0.0-10.0); NEUT # 6.4 K/uL (1.8-7.0); NEUT % 62.8 % (50.0-75.0); NRBC % 0.1 % (0.0-2.0); RBC 3.08 Mil/uL (4.40-5.90); RED CELL DISTRIBUTION WIDTH 14.7 % (11.5-14.5); WHITE BLOOD COUNT 10.2 K/uL (4.8-10.8)
[2018-01-30 07:48] LABS: ALB/GLOB RATIO 1.1 (1.0-2.1); ALBUMIN 3.3 g/dL (3.5-5.0); CALCIUM 7.6 mg/dl (8.6-10.4)
--- NOTE | 2018-01-30 08:03 | CP.PCM.PN ---
Subjective - Date & Time of Evaluation Date of Evaluation: 01/30/18 Time of Evaluation: 07:25 - Subjective Subjective: Medicine progress note for Dr. Deluna's service: Patient seen and examined at bedside, resting comfortably. Scheduled for permacath placement today in order to have HD MWF. Currently NPO. Denies any acute complaints. Breathing stabilized with oxygen, not currently dyspneic. 12- point review of systems is otherwise negative without any additional acute complaints. Objective - Vital Signs/Intake and Output Vital Signs (last 24 hours): Temp Pulse Resp BP Pulse Ox 98.9 F 93 H 20 159/80 H 100 01/30/18 07:00 01/30/18 07:00 01/30/18 07:00 01/30/18 07:00 01/30/18 07:00 Intake and Output: 01/30/18 01/30/18 06:59 18:59 Intake Total 700 Output Total 260 Balance 440 - Medications Medications: Current Medications Acetaminophen (Tylenol 325mg Tab) 975 mg PO ONCE PRN PRN Reason: Fever >100.4 F Last Admin: 01/25/18 00:47 Dose: 975 mg Acetaminophen (Tylenol 325mg Tab) 650 mg PO Q4 [facility] Last Admin: 01/30/18 04:36 Dose: Not Given Albuterol/Ipratropium (Duoneb 3 Mg/0.5 Mg (3 Ml) Ud) 3 ml INH RQ6 DIA Last Admin: 01/30/18 07:25 Dose: 3 ml Amlodipine Besylate (Norvasc) 10 mg PO DAILY [facility]IA Last Admin: 01/29/18 09:24 Dose: 10 mg Furosemide (Lasix) 80 mg IVP DAILY [facility]IA Last Admin: 01/29/18 09:24 Dose: 80 mg Heparin Sodium (Porcine) (Heparin) 5,000 units SC Q12 DIA Last Admin: 01/29/18 22:27 Dose: 5,000 units Hydralazine HCl (Apresoline) 50 mg PO Q8 [facility] Last Admin: 01/30/18 05:31 Dose: 50 mg Aztreonam 1 gm/ Sodium (Chloride) 100 mls @ 200 mls/hr IVPB Q24H DIA PRN Reason: Protocol Last Admin: 01/30/18 02:32 Dose: 200 mls/hr Insulin Aspart (Novolog) 0 unit SC ACHS DIA PRN Reason: Protocol Last Admin: 01/29/18 22:26 Dose: Not Given Linezolid (Zyvox) 600 mg PO BID [facility] PRN Reason: Protocol Last Admin: 01/29/18 18:00 Dose: 600 mg Pantoprazole Sodium (Protonix Inj) 40 mg IVP DAILY [facility] Last Admin: 01/29/18 09:24 Dose: 40 mg - Labs Labs: 01/30/18 07:01 01/30/18 07:01 PT 13.3 SECONDS (9.7-12.2) H 01/25/18 00:44 INR 1.2 01/25/18 00:44 APTT 33 SECONDS (21-34) 01/25/18 00:44 - Additional Findings Additional findings: - Constitutional Appears: No Acute Distress, Chronically Ill - Head Exam Head Exam: ATRAUMATIC, NORMOCEPHALIC - Eye Exam Eye Exam: EOMI Pupil Exam: PERRL - ENT Exam ENT Exam: Mucous Membranes Moist - Respiratory Exam Respiratory Exam: Decreased Breath Sounds, Clear to Ausculation Bilateral - Cardiovascular Exam Cardiovascular Exam: Regular Rate, +S1, +S2 - GI/Abdominal Exam GI & Abdominal Exam: Soft, Normal Bowel Sounds. absent: Tenderness - Extremities Exam Additional comments: left hallux amputation site bandaged 1+ pitting edema b/l lower extremities to ankle - Neurological Exam Neurological Exam: Alert, Awake - Skin Skin Exam: Warm Assessment and Plan - Assessment and Plan (Free Text) Assessment: Leukocytosis 01/27: WBC 10.2 today. Last fever on 01/27. Dr. Blancas, ID, consulted- help appreciated SIRS criteria present on admission (01/25): Temperature 101.2F, HR 106 SOFA score approximately 9 (no ABG for PaO2) initial VBG lactate (01/25) 4.1, repeat 1.0 procalcitonin 5.74 suspected possible sources include: line infection from prior PICC line- culture from (01/25) negative bacteremia- blood culture negative after 4 days pneumonia- chest CT negative for infiltrate however patient was dyspneic on admission, sputum culture uncollected urine- (01/25) urine culture negative prior hallux amputation site- podiatry team, Dr. Logan, consulted- recommendations appreciated patient on antibiotics: zyvox 600mg IVPB 12h (started 01/25) aztreonam 1gam IVPB q8h (started 01/28) patient previously on antibiotics: gentamicin 120mg x 1 dose (01/25) vancomycin x 1 dose (01/25) zosyn (01/25- 01/28) medications adjusted due to kidney function MANDY 01/30: patient NPO for permacath placement today with Dr. Haro. Will have HD MWF. Dr. Burger, nephrology, consulted- help appreciated possible etiologies include cardiorenal syndrome, acute allergic interstitial nephritis creatinine rising, today 5.7, was 3.7 on (01/25), creatinine baseline 0.9 end of December 2017/ beginning January 2018 urine protein 50.0 urine eosinophil count pending Bladder US: renal parenchymal disease Dyspnea 01/30: patient NPO for permacath placement today with Dr. Haro. Will have HD MWF. 01/29: Patient states no improvement in dyspnea after second dose IV lasix. Patient to have vascular consult for HD access CT Chest: pulmonary vascular congestion with small to moderate bilateral pleural effusions and subjacent atelectasis (see full report) continue lasix 80mg IVP daily BNP 9070 no echocardiogram in our EMR Transaminitis 01/30: AST stable 142. ALT 129 and AlkP 190 uptrending. Stop Tylenol PRN. Start Ultram 50mg PO q6H PRN pain. AST/ ALT/ Alk phos increasing, today 175/ 121/180 T. Bili not elevated at 0.7 hepatitis A & B negative Hepatitis C negative RPR, HIV negative HTN hydralazine 50mg PO Q8h norvasc 10mg PO daily DM ISS Accucheck ACHS A1c 7.0 in 12/2017 holding all PO meds currently due to renal function left hallux amputation site bandaged Prophylactic measure heparin 5,000unit Q12h (renal dosing) protonix 40mg IVP daily All medical management as per Dr. Deluna
[2018-01-30] MEDS: (Novolog) Insulin Aspart, Recombinant 100 u/ml 10 ml vial SC SCH ×4 (08:14→22:30)
[2018-01-30] MEDS ORDERED: Lidocaine Hydrochloride 10 ML INJ ONE (10:26)
[2018-01-30] MEDS ORDERED: HEPARIN-NS 5,000 UNITS/500 ML 5,000 UNIT/500 ML BAG IV ONE (10:27)
[2018-01-30] MEDS ORDERED: ceFAZolin 1 gm in NS 1 GM/100 ML BAG IVPB ONE (11:00)
[2018-01-30] MEDS ORDERED: Sodium Chloride 0.9% 500 ML IV ONE (12:00)
[2018-01-30] MEDS ORDERED: Propofol 10 mg/ml Inj (20 ML) ONE (12:08)
--- NOTE | 2018-01-30 12:40 | CP.PCM.PN ---
Subjective - Date & Time of Evaluation Date of Evaluation: 01/30/18 Time of Evaluation: 09:40 - Subjective Subjective: clinically same Objective - Vital Signs/Intake and Output Vital Signs (last 24 hours): Temp Pulse Resp BP Pulse Ox 98.9 F 97 H 20 149/80 100 01/30/18 07:00 01/30/18 07:50 01/30/18 07:00 01/30/18 10:35 01/30/18 07:00 Intake and Output: 01/30/18 01/30/18 06:59 18:59 Intake Total 700 Output Total 260 Balance 440 - Medications Medications: Current Medications Acetaminophen (Tylenol 325mg Tab) 975 mg PO ONCE PRN PRN Reason: Fever >100.4 F Last Admin: 01/25/18 00:47 Dose: 975 mg Acetaminophen (Tylenol 325mg Tab) 650 mg PO Q4 [facility] Last Admin: 01/30/18 08:15 Dose: Not Given Albuterol/Ipratropium (Duoneb 3 Mg/0.5 Mg (3 Ml) Ud) 3 ml INH RQ6 [facility]IA Last Admin: 01/30/18 07:25 Dose: 3 ml Amlodipine Besylate (Norvasc) 10 mg PO DAILY [facility] Last Admin: 01/30/18 10:41 Dose: Not Given Furosemide (Lasix) 80 mg IVP DAILY [facility] Last Admin: 01/30/18 10:35 Dose: 80 mg Heparin Sodium (Porcine) (Heparin) 5,000 units SC Q12 [facility] Last Admin: 01/29/18 22:27 Dose: 5,000 units Hydralazine HCl (Apresoline) 50 mg PO Q8 [facility] Last Admin: 01/30/18 05:31 Dose: 50 mg Aztreonam 1 gm/ Sodium (Chloride) 100 mls @ 200 mls/hr IVPB Q24H DIA PRN Reason: Protocol Last Admin: 01/30/18 02:32 Dose: 200 mls/hr Insulin Aspart (Novolog) 0 unit SC ACHS DIA PRN Reason: Protocol Last Admin: 01/30/18 08:14 Dose: Not Given Linezolid (Zyvox) 600 mg PO BID [facility]IA PRN Reason: Protocol Last Admin: 01/30/18 10:41 Dose: Not Given Pantoprazole Sodium (Protonix Inj) 40 mg IVP DAILY [facility] Last Admin: 01/30/18 10:37 Dose: 40 mg - Labs Labs: 01/30/18 07:01 01/30/18 07:01 PT 13.3 SECONDS (9.7-12.2) H 01/25/18 00:44 INR 1.2 01/25/18 00:44 APTT 33 SECONDS (21-34) 01/25/18 00:44 - Constitutional Appears: Well - Head Exam Head Exam: ATRAUMATIC, NORMAL INSPECTION, NORMOCEPHALIC - Eye Exam Eye Exam: EOMI, Normal appearance, PERRL Pupil Exam: NORMAL ACCOMODATION, PERRL - ENT Exam ENT Exam: Mucous Membranes Moist, Normal Exam - Neck Exam Neck Exam: Full ROM, Normal Inspection. absent: Lymphadenopathy - Respiratory Exam Respiratory Exam: Decreased Breath Sounds - Cardiovascular Exam Cardiovascular Exam: REGULAR RHYTHM, +S1, +S2 - GI/Abdominal Exam GI & Abdominal Exam: Soft, Diminished Bowel Sounds - Rectal Exam Rectal Exam: Deferred
--- NOTE | 2018-01-30 12:52 | PCM.SURG1 ---
Surgeon's Initial Post Op Note - Surgeon's Notes Surgeon: Dr. Haro Special Tester: Dr. Rodriguez Type of Anesthesia: General Endo Pre-Operative Diagnosis: ESRD Operative Findings: See operative dictation Post-Operative Diagnosis: ESRD Operation Performed: Right IJ permacath placement Specimen/Specimens Removed: none Estimated Blood Loss: EBL {In ML}: 5 Blood Products Given: N/A Drains Used: No Drains Post-Op Condition: Good Date of Surgery/Procedure: 01/30/18 Time of Surgery/Procedure: 12:52
[2018-01-30] MEDS ORDERED: HYDROmorphone 0.5 mg/0.5 ml ISec IVP PRN ×2 (13:00→13:02)
[2018-01-30] MEDS ORDERED: Albuterol-Ipratrop 3 mg / 0.5 (3 ml) UD INH STA (13:12)
--- NOTE | 2018-01-30 13:46 | RAD ---
PROCEDURE: CHEST RADIOGRAPH, 1 VIEW HISTORY: permacath placement COMPARISON: 01/25/2018 FINDINGS: LUNGS: Worsening multifocal infiltrates/ pulmonary edema. PLEURA: Bilateral pleural effusions represent new findings. CARDIOVASCULAR: Normal size heart OSSEOUS STRUCTURES: Pole midshaft right clavicular fracture and severe degenerative changes right shoulder VISUALIZED UPPER ABDOMEN: Normal. OTHER FINDINGS: Satisfactory position of recently placed PermCath. No pneumothorax identified. IMPRESSION: Satisfactory position of venous access catheter. Worsening pulmonary vascular congestion/ pulmonary edema.
[2018-01-30] MEDS: Sodium Chloride 0.9% 1,000 ML IV SCH (14:43)
--- NOTE | 2018-01-30 15:20 | CP.PCM.PN ---
Subjective - Date & Time of Evaluation Date of Evaluation: 01/30/18 Time of Evaluation: 03:00 - Subjective Subjective: dictated Objective - Vital Signs/Intake and Output Vital Signs (last 24 hours): Temp Pulse Resp BP Pulse Ox 98.0 F 87 20 151/80 H 98 01/30/18 14:20 01/30/18 14:20 01/30/18 14:20 01/30/18 14:20 01/30/18 14:20 Intake and Output: 01/30/18 01/30/18 06:59 18:59 Intake Total 700 35 Output Total 260 200 Balance 440 -165 - Medications Medications: Current Medications Acetaminophen (Tylenol 325mg Tab) 975 mg PO ONCE PRN PRN Reason: Fever >100.4 F Last Admin: 01/25/18 00:47 Dose: 975 mg Acetaminophen (Tylenol 325mg Tab) 650 mg PO Q4 [facility] Last Admin: 01/30/18 12:00 Dose: Not Given Albuterol/Ipratropium (Duoneb 3 Mg/0.5 Mg (3 Ml) Ud) 3 ml INH RQ6 [facility] Last Admin: 01/30/18 13:10 Dose: Not Given Amlodipine Besylate (Norvasc) 10 mg PO DAILY [facility] Last Admin: 01/30/18 10:41 Dose: Not Given Furosemide (Lasix) 80 mg IVP DAILY [facility] Last Admin: 01/30/18 10:35 Dose: 80 mg Heparin Sodium (Porcine) (Heparin) 5,000 units SC Q12 [facility] Last Admin: 01/29/18 22:27 Dose: 5,000 units Hydralazine HCl (Apresoline) 50 mg PO Q8 [facility] Last Admin: 01/30/18 14:36 Dose: 50 mg Aztreonam 1 gm/ Sodium (Chloride) 100 mls @ 200 mls/hr IVPB Q24H [facility]IA PRN Reason: Protocol Last Admin: 01/30/18 02:32 Dose: 200 mls/hr Sodium Chloride (Sodium Chloride 0.9%) 1,000 mls @ 50 mls/hr IV .Q20H [facility] Last Admin: 01/30/18 14:43 Dose: 50 mls/hr Insulin Aspart (Novolog) 0 unit SC ACHS DIA PRN Reason: Protocol Last Admin: 01/30/18 11:30 Dose: Not Given Linezolid (Zyvox) 600 mg PO BID [facility] PRN Reason: Protocol Last Admin: 01/30/18 10:41 Dose: Not Given Pantoprazole Sodium (Protonix Inj) 40 mg IVP DAILY [facility] Last Admin: 01/30/18 10:37 Dose: 40 mg - Labs Labs: 01/30/18 07:01 01/30/18 07:01 PT 13.3 SECONDS (9.7-12.2) H 01/25/18 00:44 INR 1.2 01/25/18 00:44 APTT 33 SECONDS (21-34) 01/25/18 00:44
--- NOTE | 2018-01-30 16:38 | RAD ---
PROCEDURE: HISTORY: As Above COMPARISON: None TECHNIQUE: Total fluoroscopic time utilized during the procedure: 25.7 seconds. Total dose 0.31420 mGy cm squared FINDINGS: Submitted images from the current procedure: 1 Please refer to the physician's notes performing the procedure. IMPRESSION: Less than 1 hour fluoroscopic time utilized during performance of the procedure
--- NOTE | 2018-01-30 16:52 | CP.PCM.PN ---
Subjective - Date & Time of Evaluation Date of Evaluation: 01/30/18 Time of Evaluation: 16:50 - Subjective Subjective: 62 yo patient 4 weeks s/p left foot partial hallux amputation. Seen resting comfortably, AAOx3, and NAD. Patient had surgery today for placement of hemodialysis catheter. Dressing on left foot is C/D/I, no other pedal complaints at this time. Denies N/V/F/C/SOB/CP/pain on posterior calf. Objective - Vital Signs/Intake and Output Vital Signs (last 24 hours): Temp Pulse Resp BP Pulse Ox 98.1 F 85 20 151/97 H 100 01/30/18 15:47 01/30/18 15:47 01/30/18 15:47 01/30/18 15:47 01/30/18 15:47 Intake and Output: 01/30/18 01/30/18 06:59 18:59 Intake Total 700 35 Output Total 260 200 Balance 440 -165 - Medications Medications: Current Medications Acetaminophen (Tylenol 325mg Tab) 650 mg PO Q4 [facility] Last Admin: 01/30/18 16:12 Dose: Not Given Albuterol/Ipratropium (Duoneb 3 Mg/0.5 Mg (3 Ml) Ud) 3 ml INH RQ6 [facility] Last Admin: 01/30/18 13:10 Dose: Not Given Amlodipine Besylate (Norvasc) 10 mg PO DAILY [facility] Last Admin: 01/30/18 10:41 Dose: Not Given Furosemide (Lasix) 80 mg IVP DAILY [facility] Last Admin: 01/30/18 10:35 Dose: 80 mg Heparin Sodium (Porcine) (Heparin) 5,000 units SC Q12 [facility] Last Admin: 01/29/18 22:27 Dose: 5,000 units Hydralazine HCl (Apresoline) 50 mg PO Q8 [facility] Last Admin: 01/30/18 14:36 Dose: 50 mg Aztreonam 1 gm/ Sodium (Chloride) 100 mls @ 200 mls/hr IVPB Q24H DIA PRN Reason: Protocol Last Admin: 01/30/18 02:32 Dose: 200 mls/hr Sodium Chloride (Sodium Chloride 0.9%) 1,000 mls @ 50 mls/hr IV .Q20H [facility] Last Admin: 01/30/18 14:43 Dose: 50 mls/hr Insulin Aspart (Novolog) 0 unit SC ACHS DIA PRN Reason: Protocol Last Admin: 01/30/18 16:11 Dose: Not Given Linezolid (Zyvox) 600 mg PO BID [facility]IA PRN Reason: Protocol Last Admin: 01/30/18 10:41 Dose: Not Given Pantoprazole Sodium (Protonix Inj) 40 mg IVP DAILY [facility] Last Admin: 01/30/18 10:37 Dose: 40 mg Tramadol HCl (Ultram) 50 mg PO Q6H PRN PRN Reason: Pain, moderate (4-7) - Labs Labs: 01/30/18 07:01 01/30/18 07:01 PT 13.3 SECONDS (9.7-12.2) H 01/25/18 00:44 INR 1.2 01/25/18 00:44 APTT 33 SECONDS (21-34) 01/25/18 00:44 - Constitutional Appears: Well, Non-toxic, No Acute Distress - Head Exam Head Exam: ATRAUMATIC, NORMOCEPHALIC - Extremities Exam Additional comments: Left LE focused exam DERM: Surgical incision site appears well coapted, no sutures remain, there is no evidence of wounddehiscence, malodor, purulent drainage, or any clinical signs of infection noted. VASC: DP and PT pulses nonpalpable on the left foot, mildly palpable on the right foot NEURO: Gross and protective sensation intact ORTHO: no pain on palpation at the surgical site, no gross deformities present - Neurological Exam Neurological Exam: Alert, Awake, Oriented x3 Assessment and Plan - Assessment and Plan (Free Text) Assessment: 62 yo patient 4 weeks s/p left hallux partial amputation Plan: Patient was seen and evaluated Discussed plan in detail with Dr. Logan Labs and vitals reviewed; WBC 10.2 Left hallux dressed with betaine and DSD Patient is stable from podiatry standpoint Podiatry will continue to follow in house.
--- NOTE | 2018-01-30 22:21 | PN ---
DATE: 01/30/2018 SUBJECTIVE: Patient is a 62-year-old. He got a dialysis catheter placed right now. He just came back. He is drowsy but arousable. His niece is at the bedside. He denies any complains of pain. No nausea, no vomiting. OBJECTIVE: VITAL SIGNS: His respiratory rate is however 22, T-max is 98.1, pulse 85, blood pressure 151/97. HEENT: Head is atraumatic, normocephalic. Pupils are reacting to light. NECK: Supple. LUNGS: Clear. Decreased breath sounds bilaterally. HEART: S1, S2 is regular. ABDOMEN: Soft, nontender. No guarding, no rigidity present. EXTREMITIES: Bilateral edema. At this time, left foot remains with a dressing. According to the spring assembler, he is healing. LABORATORY DATA: Show white count is 10.2, hemoglobin 9.2, hematocrit 26.5, platelet count is 261. CO2 is 17. Creatinine remains elevated at 1.8. He is again started on fluids and 50 mL per hour he is getting at this time. His LFTs are elevated. AST is 142, ALT is 129 and phosphorus is high. ASSESSMENT AND PLAN: He has acute renal failure which may be multifactorial and he is for dialysis. He is a diabetic patient, underwent left distal phalanx of great toe for osteomyelitis recently and was on IV antibiotics and now came in with fevers. Cultures have been all negative; however, I suspect he probably had catheter sepsis but cultures have not revealed anything and he is in congestive heart failure due to acute renal failure. We will follow. Tiffany Blancas MD
--- NOTE | 2018-01-30 22:28 | OP ---
PROCEDURE DATE: 01/30/2018 PREOPERATIVE DIAGNOSIS: Renal failure. POSTOPERATIVE DIAGNOSIS: Renal failure. PROCEDURE CARRIED OUT: PermCath right jugular vein with C-arm fluoroscopy, ultrasound-guided puncture, and micropuncture technique. SURGEON: Carl Haro Jr., M.D. FISHING ROD MARKER: Jessee Rodriguez DO ANESTHESIOLOGIST: Mr. Louis. INDICATIONS: The patient is a 62-year-old man with renal insufficiency, now requires dialysis. OPERATIVE FINDINGS: Catheter was inserted uneventfully via the jugular vein. DESCRIPTION OF PROCEDURE: The patient was given local anesthesia. Using ultrasound guidance and micropuncture technique, the right jugular vein was punctured. Under fluoroscopic control, the guidewire was advanced centrally. This was exchanged over sheath dilator and the catheter was then positioned on the superior vena cava of the right atrial junction. It originated on the right chest wall, went through the right jugular vein, and terminated in the superior vena cava. It was flushed with heparinized saline with excellent return. It was secured to the skin with sutures. The procedure was terminated. Blood loss for the procedure was 20 mL. Operation carried out PermCath, right jugular vein with C-arm fluoroscopy, ultrasound guided puncture and micropuncture technique. Ultrasound images of the neck showed the vein was 19 mm in diameter with normal compressibility and no intraluminal thrombosis. Carl Haro Jr., MD
[2018-01-30] MEDS: Meropenem 500 MG in Sodium Chloride 0.9% 100 ML IVPB SCH (23:14)
[2018-01-31] MEDS: Albuterol-Ipratrop 3 mg / 0.5 (3 ml) UD INH SCH ×4 (01:26→20:04)
[2018-01-31] MEDS: Aztreonam 1 GM in Sodium Chloride 0.9% 100 ML IVPB SCH (02:31)
[2018-01-31] MEDS: (Novolog) Insulin Aspart, Recombinant 100 u/ml 10 ml vial SC SCH ×4 (07:41→21:04)
[2018-01-31 07:46] LABS: ALBUMIN 3.1 g/dL (3.5-5.0); CALCIUM 7.4 mg/dl (8.6-10.4)
--- NOTE | 2018-01-31 07:56 | CP.PCM.PN ---
Subjective - Date & Time of Evaluation Date of Evaluation: 01/31/18 Time of Evaluation: 07:10 - Subjective Subjective: Medicine progress note for Dr. Deluna's service: Patient seen and examined at bedside, resting comfortably. Pt with fever 102.6 overnight. Pt had permacath placement 01/30 in order to have HD MWF. Currently tolerating renal diet. Reports normal BM and urination today. Mild tenderness at R permacath chest site. Denies f/c, n/c, or d/c. 12-point review of systems is otherwise negative without any additional acute complaints. Objective - Vital Signs/Intake and Output Vital Signs (last 24 hours): Temp Pulse Resp BP Pulse Ox 97.6 F 78 22 151/81 H 100 01/31/18 07:00 01/31/18 07:00 01/31/18 07:00 01/31/18 07:00 01/31/18 07:00 Intake and Output: 01/31/18 01/31/18 06:59 18:59 Intake Total 400 Balance 400 - Medications Medications: Current Medications Acetaminophen (Tylenol 325mg Tab) 650 mg PO Q4 [facility] Last Admin: 01/30/18 16:12 Dose: Not Given Albuterol/Ipratropium (Duoneb 3 Mg/0.5 Mg (3 Ml) Ud) 3 ml INH RQ6 DIA Last Admin: 01/31/18 07:22 Dose: 3 ml Amlodipine Besylate (Norvasc) 10 mg PO DAILY DIA Last Admin: 01/30/18 10:41 Dose: Not Given Furosemide (Lasix) 80 mg IVP DAILY DIA Last Admin: 01/30/18 10:35 Dose: 80 mg Heparin Sodium (Porcine) (Heparin) 5,000 units SC Q12 DIA Last Admin: 01/30/18 22:50 Dose: 5,000 units Hydralazine HCl (Apresoline) 50 mg PO Q8 DIA Last Admin: 01/31/18 05:14 Dose: 50 mg Aztreonam 1 gm/ Sodium (Chloride) 100 mls @ 200 mls/hr IVPB Q24H DIA PRN Reason: Protocol Last Admin: 01/31/18 02:31 Dose: 200 mls/hr Sodium Chloride (Sodium Chloride 0.9%) 1,000 mls @ 50 mls/hr IV .Q20H DIA Last Admin: 01/30/18 14:43 Dose: 50 mls/hr Meropenem 500 mg/ Sodium (Chloride) 100 mls @ 100 mls/hr IVPB Q12H DIA PRN Reason: Protocol Last Admin: 01/30/18 23:14 Dose: 100 mls/hr Insulin Aspart (Novolog) 0 unit SC ACHS DIA PRN Reason: Protocol Last Admin: 01/31/18 07:41 Dose: Not Given Linezolid (Zyvox) 600 mg PO BID DIA PRN Reason: Protocol Last Admin: 01/30/18 22:19 Dose: 600 mg Pantoprazole Sodium (Protonix Inj) 40 mg IVP DAILY [facility] Last Admin: 01/30/18 10:37 Dose: 40 mg Tramadol HCl (Ultram) 50 mg PO Q6H PRN PRN Reason: Pain, moderate (4-7) - Labs Labs: 01/30/18 07:01 01/31/18 07:10 PT 13.3 SECONDS (9.7-12.2) H 01/25/18 00:44 INR 1.2 01/25/18 00:44 APTT 33 SECONDS (21-34) 01/25/18 00:44 - Additional Findings Additional findings: - Constitutional Appears: No Acute Distress, Chronically Ill - Head Exam Head Exam: ATRAUMATIC, NORMOCEPHALIC - Eye Exam Eye Exam: EOMI Pupil Exam: PERRL - ENT Exam ENT Exam: Mucous Membranes Moist - Respiratory Exam Respiratory Exam: Decreased Breath Sounds, Clear to Ausculation Bilateral -R chest wall permacath site; dressing CDI - Cardiovascular Exam Cardiovascular Exam: Regular Rate, +S1, +S2 - GI/Abdominal Exam GI & Abdominal Exam: Soft, Normal Bowel Sounds. absent: Tenderness - Extremities Exam Additional comments: left hallux amputation site bandaged 1+ pitting edema b/l lower extremities to ankle - Neurological Exam Neurological Exam: Alert, Awake - Skin Skin Exam: Warm Assessment and Plan - Assessment and Plan (Free Text) Assessment: Leukocytosis 01/31: Febrile overnight at 102.6F. Started Aztreonam 1Gm IVPB q24H. Currently on: Aztreonam 1Gm IVPB q24H (started 01/30) Zyvox 600mg PO BID (started 01/29) Meropenem 500mg IVPB Q12 (started 01/30) L foot xray 01/31- negative CT chest/abd/pelv 01/30- Bilateral pleural effusion with lower lobe subsegmental atelectasis. Chronic pancreatitis. Mildly dilated main pulmonary artery. Correlate for any history of pulmonary arterial hypertension. Thickened bladder wall. Possible artifact due to outlet obstruction or cystitis. Anasarca. See full report. 01/30: WBC 10.2 today. Last fever on 01/27. Dr. Blancas, ID, consulted- help appreciated SIRS criteria present on admission (01/25): Temperature 101.2F, HR 106 SOFA score approximately 9 (no ABG for PaO2) initial VBG lactate (01/25) 4.1, repeat 1.0 procalcitonin 5.74 suspected possible sources include: line infection from prior PICC line- culture from (01/25) negative bacteremia- blood culture negative after 4 days pneumonia- chest CT negative for infiltrate however patient was dyspneic on admission, sputum culture uncollected urine- (01/25) urine culture negative prior hallux amputation site- recent amputation for osteomyelitis and was on IV abx prior to this admission. Podiatry team, Dr. Logan, consulted- recommendations appreciated patient on antibiotics: zyvox 600mg IVPB 12h (started 01/25) aztreonam 1gam IVPB q8h (started 01/28) patient previously on antibiotics: gentamicin 120mg x 1 dose (01/25) vancomycin x 1 dose (01/25) zosyn (01/25- 01/28) medications adjusted due to kidney function MANDY 01/31: patient s/p permacath placement with Dr. Haro 01/30. Received dialysis late yesterday. Repeat dialysis this afternoon 01/31. Will have HD MWF. Dr. Burger, nephrology, consulted- help appreciated possible etiologies include cardiorenal syndrome, acute allergic interstitial nephritis creatinine rising, today 5.7, was 3.7 on (01/25), creatinine baseline 0.9 end of December 2017/ beginning January 2018 urine protein 50.0 urine eosinophil count pending Bladder US: renal parenchymal disease Dyspnea 01/31: improving dyspnea s/p dialysis. f/u portable CXR 02/01. 01/30: patient NPO for permacath placement today with Dr. Haro. Will have HD MWF. 01/29: Patient states no improvement in dyspnea after second dose IV lasix. Patient to have vascular consult for HD access CT Chest: pulmonary vascular congestion with small to moderate bilateral pleural effusions and subjacent atelectasis (see full report) continue lasix 80mg IVP daily BNP 9070 no echocardiogram in our EMR Transaminitis 01/31: downtrending LFTs after stopping Tylenol. Continue Ultram 50mg PO q6H PRN pain. 01/30: AST stable 142. ALT 129 and AlkP 190 uptrending. Stop Tylenol PRN. Start Ultram 50mg PO q6H PRN pain. AST/ ALT/ Alk phos increasing, today 175/ 121/180 T. Bili not elevated at 0.7 hepatitis A & B negative Hepatitis C negative RPR, HIV negative HTN hydralazine 50mg PO Q8h norvasc 10mg PO daily DM ISS Accucheck ACHS A1c 7.0 in 12/2017 holding all PO meds currently due to renal function left hallux amputation site bandaged Prophylactic measure heparin 5,000unit Q12h (renal dosing) protonix 40mg IVP daily All medical management as per Dr. Deluna
[2018-01-31] MEDS: Sodium Chloride 0.9% 1,000 ML IV SCH (09:30)
[2018-01-31] MEDS: Pantoprazole 40 mg EC Tab PO SCH (10:11)
[2018-01-31] MEDS: Meropenem 500 MG in Sodium Chloride 0.9% 100 ML IVPB SCH ×2 (10:15→22:20)
[2018-01-31 11:09] LABS: BASO # 0.1 K/uL (0.0-0.2); BASO % 1.1 % (0.0-2.0); EOS # 1.8 K/uL (0.0-0.7); HEMOGLOBIN 8.7 g/dL (12.0-18.0); LYMPH # 1.2 K/uL (1.0-4.3); LYMPH % 12.5 % (20.0-40.0); MEAN CELL VOLUME 85.5 fL (80.0-94.0); MEAN CORPUSCULAR HEMOGLOBIN 29.5 pg (27.0-31.0); MEAN CORPUSCULAR HGB CONC 34.5 g/dL (33.0-37.0); MEAN PLATELET VOLUME 6.7 fL (7.2-11.7); MONO # 0.5 K/uL (0.0-0.8); MONO % 5.3 % (0.0-10.0); NEUT # 6.1 K/uL (1.8-7.0); NEUT % 62.1 % (50.0-75.0); NRBC % 0.1 % (0.0-2.0); RBC 2.94 Mil/uL (4.40-5.90); WHITE BLOOD COUNT 9.7 K/uL (4.8-10.8)
--- NOTE | 2018-01-31 14:01 | CP.PCM.PN ---
Subjective - Date & Time of Evaluation Date of Evaluation: 01/31/18 Time of Evaluation: 02:00 - Subjective Subjective: dictated Objective - Vital Signs/Intake and Output Vital Signs (last 24 hours): Temp Pulse Resp BP Pulse Ox 98.8 F 89 20 155/72 H 100 01/31/18 13:30 01/31/18 13:30 01/31/18 13:30 01/31/18 13:30 01/31/18 07:00 Intake and Output: 01/31/18 01/31/18 06:59 18:59 Intake Total 400 400 Balance 400 400 - Medications Medications: Current Medications Acetaminophen (Tylenol 325mg Tab) 650 mg PO Q4 [facility] Last Admin: 01/30/18 16:12 Dose: Not Given Albuterol/Ipratropium (Duoneb 3 Mg/0.5 Mg (3 Ml) Ud) 3 ml INH RQ6 DIA Last Admin: 01/31/18 13:52 Dose: Not Given Amlodipine Besylate (Norvasc) 10 mg PO DAILY [facility] Last Admin: 01/31/18 11:00 Dose: Not Given Furosemide (Lasix) 80 mg IVP DAILY [facility] Last Admin: 01/31/18 11:00 Dose: Not Given Heparin Sodium (Porcine) (Heparin) 5,000 units SC Q12 DIA Last Admin: 01/31/18 10:11 Dose: 5,000 units Hydralazine HCl (Apresoline) 50 mg PO Q8 [facility] Last Admin: 01/31/18 13:11 Dose: Not Given Aztreonam 1 gm/ Sodium (Chloride) 100 mls @ 200 mls/hr IVPB Q24H DIA PRN Reason: Protocol Last Admin: 01/31/18 02:31 Dose: 200 mls/hr Sodium Chloride (Sodium Chloride 0.9%) 1,000 mls @ 50 mls/hr IV .Q20H [facility] Last Admin: 01/31/18 09:30 Dose: Not Given Meropenem 500 mg/ Sodium (Chloride) 100 mls @ 100 mls/hr IVPB Q12H DIA PRN Reason: Protocol Last Admin: 01/31/18 10:15 Dose: 100 mls/hr Vancomycin HCl 1 gm/ Sodium (Chloride) 250 mls @ 166.7 mls/hr IVPB MWF STA PRN Reason: Protocol Stop: 01/31/18 15:17 Insulin Aspart (Novolog) 0 unit SC ACHS DIA PRN Reason: Protocol Last Admin: 01/31/18 11:40 Dose: Not Given Pantoprazole Sodium (Protonix Ec Tab) 40 mg PO DAILY [facility] Last Admin: 01/31/18 10:11 Dose: 40 mg Tramadol HCl (Ultram) 50 mg PO Q6H PRN PRN Reason: Pain, moderate (4-7) - Labs Labs: 01/31/18 11:04 01/31/18 07:10 PT 13.3 SECONDS (9.7-12.2) H 01/25/18 00:44 INR 1.2 01/25/18 00:44 APTT 33 SECONDS (21-34) 01/25/18 00:44
--- NOTE | 2018-01-31 14:04 | CP.PCM.PN ---
Subjective - Date & Time of Evaluation Date of Evaluation: 01/31/18 Time of Evaluation: 14:01 - Subjective Subjective: on dialysis now now afebrile; all cultures negative CXR with CHF pattern [id number] still edematous, moderately dyspneic LE erythema noted Objective - Vital Signs/Intake and Output Vital Signs (last 24 hours): Temp Pulse Resp BP Pulse Ox 98.8 F 89 20 155/72 H 100 01/31/18 13:30 01/31/18 13:30 01/31/18 13:30 01/31/18 13:30 01/31/18 07:00 Intake and Output: 01/31/18 01/31/18 06:59 18:59 Intake Total 400 400 Balance 400 400 - Medications Medications: Current Medications Acetaminophen (Tylenol 325mg Tab) 650 mg PO Q4 [facility] Last Admin: 01/30/18 16:12 Dose: Not Given Albuterol/Ipratropium (Duoneb 3 Mg/0.5 Mg (3 Ml) Ud) 3 ml INH RQ6 DIA Last Admin: 01/31/18 13:52 Dose: Not Given Amlodipine Besylate (Norvasc) 10 mg PO DAILY DIA Last Admin: 01/31/18 11:00 Dose: Not Given Furosemide (Lasix) 80 mg IVP DAILY DIA Last Admin: 01/31/18 11:00 Dose: Not Given Heparin Sodium (Porcine) (Heparin) 5,000 units SC Q12 DIA Last Admin: 01/31/18 10:11 Dose: 5,000 units Hydralazine HCl (Apresoline) 50 mg PO Q8 DIA Last Admin: 01/31/18 13:11 Dose: Not Given Aztreonam 1 gm/ Sodium (Chloride) 100 mls @ 200 mls/hr IVPB Q24H DIA PRN Reason: Protocol Last Admin: 01/31/18 02:31 Dose: 200 mls/hr Sodium Chloride (Sodium Chloride 0.9%) 1,000 mls @ 50 mls/hr IV .Q20H DIA Last Admin: 01/31/18 09:30 Dose: Not Given Meropenem 500 mg/ Sodium (Chloride) 100 mls @ 100 mls/hr IVPB Q12H DIA PRN Reason: Protocol Last Admin: 01/31/18 10:15 Dose: 100 mls/hr Vancomycin HCl 1 gm/ Sodium (Chloride) 250 mls @ 166.7 mls/hr IVPB MWF STA PRN Reason: Protocol Stop: 01/31/18 15:17 Insulin Aspart (Novolog) 0 unit SC ACHS DIA PRN Reason: Protocol Last Admin: 01/31/18 11:40 Dose: Not Given Pantoprazole Sodium (Protonix Ec Tab) 40 mg PO DAILY [facility] Last Admin: 01/31/18 10:11 Dose: 40 mg Tramadol HCl (Ultram) 50 mg PO Q6H PRN PRN Reason: Pain, moderate (4-7) - Labs Labs: 01/31/18 11:04 01/31/18 07:10 PT 13.3 SECONDS (9.7-12.2) H 01/25/18 00:44 INR 1.2 01/25/18 00:44 APTT 33 SECONDS (21-34) 01/25/18 00:44 - Constitutional Appears: No Acute Distress, Chronically Ill - Head Exam Head Exam: ATRAUMATIC, NORMAL INSPECTION - Eye Exam Eye Exam: EOMI, Normal appearance - Neck Exam Neck Exam: Normal Inspection. absent: Tenderness - Respiratory Exam Respiratory Exam: Rhonchi, Respiratory Distress - Cardiovascular Exam Cardiovascular Exam: REGULAR RHYTHM, +S1 - GI/Abdominal Exam GI & Abdominal Exam: Soft. absent: Tenderness - Extremities Exam Extremities Exam: Pedal Edema, Tenderness - Neurological Exam Neurological Exam: Alert, CN II-XII Intact - Skin Skin Exam: Dry, Warm Assessment and Plan (1) MANDY (acute kidney injury) Status: Acute (2) Type 2 diabetes mellitus with diabetic nephropathy Status: Acute (3) Fever Status: Acute (4) Diabetes 1.5, managed as type 2 Status: Acute (5) Nonhealing ulcer of left lower extremity Status: Acute - Assessment and Plan (Free Text) Plan: dialysis now, MWF increase UF goal ABs as per ID etiology MANDY unclear- ?AIN can consider renal bx if no recovery soon; though likely has CKD 4 as baseline from DM
--- NOTE | 2018-01-31 14:15 | CT ---
PROCEDURE: CT Chest, Abdomen and Pelvis without intravenous contrast HISTORY: fluid retention COMPARISON: CT chest 01/25/2018 and abdominal/iliofemoral CT angiography 12/23/2017 TECHNIQUE: Radiation dose: Total exam DLP = 1756.20 mGy-cm. This CT exam was performed using one or more of the following dose reduction techniques: Automated exposure control, adjustment of the mA and/or kV according to patient size, and/or use of iterative reconstruction technique. FINDINGS: CT CHEST WITHOUT CONTRAST: LUNGS: Compressive atelectasis bilateral lower lobes. No pulmonary infiltrate. MEDIASTINUM: Mild cardiomegaly. Coronary arterial calcification. Tunneled right central venous dialysis catheter. No evidence of thoracic aortic aneurysm. Mild dilatation of main pulmonary artery to a diameter of 3.4 cm. Please correlate with any history of pulmonary arterial hypertension. LYMPH NODES: Unremarkable. PLEURA: Small to moderate bilateral pleural effusion. No pneumothorax. BONES: Unremarkable. OTHER FINDINGS: None. CT ABDOMEN AND PELVIS: LIVER: Unremarkable. No gross lesion or ductal dilatation. GALLBLADDER AND BILE DUCTS: Unremarkable. PANCREAS: significant for numerous coarse calcifications throughout the pancreas consistent with chronic pancreatitis. No mass. No pancreatic ductal dilatation appreciated. No evidence of pancreatitis. SPLEEN: Unremarkable. ADRENALS: Unremarkable. No mass. KIDNEYS AND URETERS: Unremarkable. No hydronephrosis. No solid mass. VASCULATURE: Unremarkable. No aortic aneurysm. BOWEL: Unremarkable. No obstruction. No gross mural thickening. APPENDIX: Normal appendix. PERITONEUM: Trace fluid in pelvis, nonspecific. LYMPH NODES: Unremarkable. No enlarged lymph nodes. BLADDER: Suboptimally distended. Diffusely thickened bladder wall. This may be due to artifact from inadequate distention, chronic outlet obstruction or cystitis. Please correlate. REPRODUCTIVE: Normal prostate BONES: No acute fracture. OTHER FINDINGS: Generalized anasarca, mild. IMPRESSION: Bilateral pleural effusion with lower lobe subsegmental atelectasis. Chronic pancreatitis. Mildly dilated main pulmonary artery. Correlate for any history of pulmonary arterial hypertension. Thickened bladder wall. Possible artifact due to outlet obstruction or cystitis. Anasarca.
--- NOTE | 2018-01-31 14:31 | RAD ---
PROCEDURE: Left Foot Radiographs. HISTORY: R/O osteomyelitis COMPARISON: 01/03/2018 FINDINGS: BONES: No acute fracture. Status post amputation 1st distal phalanx. No evidence of osseous erosion or periosteal reaction to suggest osteomyelitis. JOINTS: Normal. SOFT TISSUES: Normal. OTHER FINDINGS: None. IMPRESSION: No plain radiographic evidence of osteomyelitis.
[2018-01-31] MEDS: Vancomycin 1 GM in Sodium Chloride 0.9% 200 ML IVPB SCH (17:18)
--- NOTE | 2018-01-31 19:14 | PN ---
DATE: 01/31/2018 SUBJECTIVE: The patient is right now getting dialysis, but last night he spiked a temp to 102.6. We did blood cultures, urine, and I ordered CAT scan. He always has some chills and he appears very weak and is not improving much. He did have a new catheter placed in for the dialysis and had one dialysis yesterday, so at this time, he was already on Zyvox and Azactam, but he had fever in spite of being on these antibiotics. Septic workup has been done and I added Merrem at this time and CAT scans have been done, results of which are pending. He seems to have diffuse rash on the lower extremities and is developing some cellulitis also. There is rash in the upper neck and he has been on these antibiotics. PHYSICAL EXAMINATION: GENERAL: He appears sick-looking and he is still having some shakes in spite of having no fever at this time, does not give any complains of any pain anywhere. His catheter seems to be functioning, they are doing dialysis and we will get cultures done through the dialysis. VITAL SIGNS: Temp right now is 97.6, pulse 78, blood pressure 151/81, and respirations are 22. NECK: At this time neck is supple. LUNGS: Clear. Decreased breath sounds bilaterally. HEART: S1, S2 is regular. ABDOMEN: Soft, nontender. No guarding. No rigidity present. EXTREMITIES: Have bilateral edema and rash and the left foot has a dressing. LABORATORY DATA: At this time, I have also requested x-ray of the left foot and if he continues to have fever, we may have to do a scan as well as MRI of the foot which he had a surgery for and which was positive for MRSA. At this time, his labs have come back, which show white count is 9.7, hemoglobin 8.7, hematocrit 25.2, and platelet count is 231. BUN is 34 and creatinine is 3.9, so creatinine is a little better and at this time, I will also get Dopplers done. We had done urine eosinophils on 01/24/2018, which was negative. I would also do, since he has eosinophils, stool for ova and parasites. ASSESSMENT AND PLAN: At this time, his fever is due to new catheter. His old catheter has been discontinued. He did have fever and chills when he came to the hospital. He has acute renal failure. He is diabetic and at this time, we will follow culture reports and I will discontinue Zyvox, add vancomycin after each dialysis and continue with the Merrem and Azactam at this time until I know further some lab reports and also get Dopplers done for the lower extremities. We will follow and appreciated Renal's help to get dialysis, which will be Monday, Monday, and Monday, so we will give vancomycin Monday, Monday, and Monday. Tiffany Blancas MD
--- NOTE | 2018-01-31 19:20 | CP.PCM.PN ---
Subjective - Date & Time of Evaluation Date of Evaluation: 01/31/18 Time of Evaluation: 09:40 - Subjective Subjective: clinically same Objective - Vital Signs/Intake and Output Vital Signs (last 24 hours): Temp Pulse Resp BP Pulse Ox 97.9 F 90 20 168/80 H 97 01/31/18 17:20 01/31/18 18:00 01/31/18 17:20 01/31/18 17:20 01/31/18 17:20 Intake and Output: 01/31/18 02/01/18 18:59 06:59 Intake Total 400 Balance 400 - Medications Medications: Current Medications Acetaminophen (Tylenol 325mg Tab) 650 mg PO Q4 [facility] Last Admin: 01/30/18 16:12 Dose: Not Given Albuterol/Ipratropium (Duoneb 3 Mg/0.5 Mg (3 Ml) Ud) 3 ml INH RQ6 [facility] Last Admin: 01/31/18 13:52 Dose: Not Given Amlodipine Besylate (Norvasc) 10 mg PO DAILY [facility] Last Admin: 01/31/18 11:00 Dose: Not Given Furosemide (Lasix) 80 mg IVP DAILY [facility] Last Admin: 01/31/18 11:00 Dose: Not Given Heparin Sodium (Porcine) (Heparin) 5,000 units SC Q12 [facility] Last Admin: 01/31/18 10:11 Dose: 5,000 units Hydralazine HCl (Apresoline) 50 mg PO Q8 [facility] Last Admin: 01/31/18 13:11 Dose: Not Given Aztreonam 1 gm/ Sodium (Chloride) 100 mls @ 200 mls/hr IVPB Q24H [facility] PRN Reason: Protocol Last Admin: 01/31/18 02:31 Dose: 200 mls/hr Sodium Chloride (Sodium Chloride 0.9%) 1,000 mls @ 50 mls/hr IV .Q20H [facility] Last Admin: 01/31/18 09:30 Dose: Not Given Meropenem 500 mg/ Sodium (Chloride) 100 mls @ 100 mls/hr IVPB Q12H [facility] PRN Reason: Protocol Last Admin: 01/31/18 10:15 Dose: 100 mls/hr Vancomycin HCl 1 gm/ Sodium (Chloride) 200 mls @ 166.7 mls/hr IVPB MWF [facility] PRN Reason: Protocol Last Admin: 01/31/18 17:18 Dose: 166.7 mls/hr Insulin Aspart (Novolog) 0 unit SC ACHS DIA PRN Reason: Protocol Last Admin: 01/31/18 17:05 Dose: Not Given Pantoprazole Sodium (Protonix Ec Tab) 40 mg PO DAILY [facility] Last Admin: 01/31/18 10:11 Dose: 40 mg Tramadol HCl (Ultram) 50 mg PO Q6H PRN PRN Reason: Pain, moderate (4-7) - Labs Labs: 01/31/18 11:04 01/31/18 07:10 PT 13.3 SECONDS (9.7-12.2) H 01/25/18 00:44 INR 1.2 01/25/18 00:44 APTT 33 SECONDS (21-34) 01/25/18 00:44 - Constitutional Appears: Well - Head Exam Head Exam: ATRAUMATIC, NORMAL INSPECTION, NORMOCEPHALIC - Eye Exam Eye Exam: EOMI, Normal appearance, PERRL Pupil Exam: NORMAL ACCOMODATION, PERRL - ENT Exam ENT Exam: Mucous Membranes Moist, Normal Exam - Neck Exam Neck Exam: Full ROM, Normal Inspection. absent: Lymphadenopathy - Respiratory Exam Respiratory Exam: Decreased Breath Sounds - Cardiovascular Exam Cardiovascular Exam: REGULAR RHYTHM, +S1, +S2 - GI/Abdominal Exam GI & Abdominal Exam: Soft, Diminished Bowel Sounds - Rectal Exam Rectal Exam: Deferred
[2018-02-01] MEDS: Albuterol-Ipratrop 3 mg / 0.5 (3 ml) UD INH SCH ×4 (01:27→19:55)
[2018-02-01] MEDS: Aztreonam 1 GM in Sodium Chloride 0.9% 100 ML IVPB SCH (02:21)
[2018-02-01] MEDS: Sodium Chloride 0.9% 1,000 ML IV SCH (03:45)
[2018-02-01 07:18] LABS: BASO # 0.1 K/uL (0.0-0.2); BASO % 0.5 % (0.0-2.0); EOS # 1.5 K/uL (0.0-0.7); EOS % 16.2 % (0.0-4.0); HEMOGLOBIN 8.4 g/dL (12.0-18.0); LYMPH # 1.8 K/uL (1.0-4.3); LYMPH % 19.4 % (20.0-40.0); MEAN CELL VOLUME 86.2 fL (80.0-94.0); MEAN CORPUSCULAR HEMOGLOBIN 29.7 pg (27.0-31.0); MEAN CORPUSCULAR HGB CONC 34.5 g/dL (33.0-37.0); MEAN PLATELET VOLUME 7.1 fL (7.2-11.7); MONO # 0.6 K/uL (0.0-0.8); MONO % 6.8 % (0.0-10.0); NEUT # 5.4 K/uL (1.8-7.0); NEUT % 57.1 % (50.0-75.0); RBC 2.84 Mil/uL (4.40-5.90); RED CELL DISTRIBUTION WIDTH 14.6 % (11.5-14.5); WHITE BLOOD COUNT 9.5 K/uL (4.8-10.8)
[2018-02-01 07:45] LABS: CALCIUM 7.4 mg/dl (8.6-10.4)
--- NOTE | 2018-02-01 08:09 | CP.PCM.PN ---
Subjective - Date & Time of Evaluation Date of Evaluation: 02/01/18 Time of Evaluation: 08:09 - Subjective Subjective: Medicine progress note for Dr. Deluna's service Patient seen and examined. Patient noted to be eating food from home. Patient not having shaking chills but did have fever overnight. Breathing and edema are improved. Objective - Vital Signs/Intake and Output Vital Signs (last 24 hours): Temp Pulse Resp BP Pulse Ox 97.6 F 86 22 175/75 H 100 02/01/18 07:30 02/01/18 08:00 02/01/18 07:30 02/01/18 07:30 02/01/18 07:30 Intake and Output: 02/01/18 02/01/18 06:59 18:59 Intake Total 1090 Balance 1090 - Medications Medications: Current Medications Acetaminophen (Tylenol 325mg Tab) 650 mg PO Q4 [facility] Last Admin: 01/30/18 16:12 Dose: Not Given Albuterol/Ipratropium (Duoneb 3 Mg/0.5 Mg (3 Ml) Ud) 3 ml INH RQ6 DIA Last Admin: 02/01/18 07:46 Dose: 3 ml Amlodipine Besylate (Norvasc) 10 mg PO DAILY DIA Last Admin: 01/31/18 11:00 Dose: Not Given Furosemide (Lasix) 80 mg IVP DAILY DIA Last Admin: 01/31/18 11:00 Dose: Not Given Heparin Sodium (Porcine) (Heparin) 5,000 units SC Q12 DIA Last Admin: 01/31/18 21:45 Dose: 5,000 units Hydralazine HCl (Apresoline) 50 mg PO Q8 DIA Last Admin: 02/01/18 05:15 Dose: 50 mg Aztreonam 1 gm/ Sodium (Chloride) 100 mls @ 200 mls/hr IVPB Q24H DIA PRN Reason: Protocol Last Admin: 02/01/18 02:21 Dose: 200 mls/hr Sodium Chloride (Sodium Chloride 0.9%) 1,000 mls @ 50 mls/hr IV .Q20H DIA Last Admin: 02/01/18 03:45 Dose: 50 mls/hr Meropenem 500 mg/ Sodium (Chloride) 100 mls @ 100 mls/hr IVPB Q12H DIA PRN Reason: Protocol Last Admin: 01/31/18 22:20 Dose: 100 mls/hr Vancomycin HCl 1 gm/ Sodium (Chloride) 200 mls @ 166.7 mls/hr IVPB MWF DIA PRN Reason: Protocol Last Admin: 01/31/18 17:18 Dose: 166.7 mls/hr Insulin Aspart (Novolog) 0 unit SC ACHS DIA PRN Reason: Protocol Last Admin: 01/31/18 21:04 Dose: Not Given Pantoprazole Sodium (Protonix Ec Tab) 40 mg PO DAILY [facility] Last Admin: 01/31/18 10:11 Dose: 40 mg Tramadol HCl (Ultram) 50 mg PO Q6H PRN PRN Reason: Pain, moderate (4-7) - Labs Labs: 02/01/18 07:10 02/01/18 07:10 PT 13.3 SECONDS (9.7-12.2) H 01/25/18 00:44 INR 1.2 01/25/18 00:44 APTT 33 SECONDS (21-34) 01/25/18 00:44 - Constitutional Appears: No Acute Distress, Chronically Ill - Head Exam Head Exam: ATRAUMATIC - Eye Exam Eye Exam: EOMI - ENT Exam ENT Exam: Mucous Membranes Moist - Neck Exam Additional comments: right chest permacath - Respiratory Exam Respiratory Exam: Decreased Breath Sounds, Rales - Cardiovascular Exam Cardiovascular Exam: +S1, +S2 - GI/Abdominal Exam GI & Abdominal Exam: Soft, Normal Bowel Sounds - Extremities Exam Extremities Exam: Pedal Edema (mild pitting, improved erythema) Additional comments: hallux amputation site with betadyne soaked dressing - Neurological Exam Neurological Exam: Alert, Awake - Skin Skin Exam: Warm Assessment and Plan - Assessment and Plan (Free Text) Assessment: Leukocytosis 02/01: patient febrile overnight again, Tmax 101 WBC 9.5 antibiotic regimen adjusted by Dr. Blancas: aztreonam 1g q24, vancomycin added on dialysis days (MW), meropenem q12 IVPB repeat blood culture ordered as well as stool for ova and parasite due to eosinophilia 01/31: Febrile overnight at 102.6F. Started Aztreonam 1Gm IVPB q24H. Currently on: Aztreonam 1Gm IVPB q24H (started 01/30) Zyvox 600mg PO BID (started 01/29) Meropenem 500mg IVPB Q12 (started 01/30) L foot xray 01/31- negative CT chest/abd/pelv 01/30- Bilateral pleural effusion with lower lobe subsegmental atelectasis. Chronic pancreatitis. Mildly dilated main pulmonary artery. Correlate for any history of pulmonary arterial hypertension. Thickened bladder wall. Possible artifact due to outlet obstruction or cystitis. Anasarca. See full report. 01/30: WBC 10.2 today. Last fever on 01/27. Dr. Blancas, ID, consulted- help appreciated SIRS criteria present on admission (01/25): Temperature 101.2F, HR 106 SOFA score approximately 9 (no ABG for PaO2) initial VBG lactate (01/25) 4.1, repeat 1.0 procalcitonin 5.74 suspected possible sources include: line infection from prior PICC line- culture from (01/25) negative bacteremia- blood culture negative after 4 days pneumonia- chest CT negative for infiltrate however patient was dyspneic on admission, sputum culture uncollected urine- (01/25) urine culture negative prior hallux amputation site- recent amputation for osteomyelitis and was on IV abx prior to this admission. Podiatry team, Dr. Logan, consulted- recommendations appreciated patient on antibiotics: zyvox 600mg IVPB 12h (started 01/25) aztreonam 1gam IVPB q8h (started 01/28) patient previously on antibiotics: gentamicin 120mg x 1 dose (01/25) vancomycin x 1 dose (01/25) zosyn (01/25- 01/28) medications adjusted due to kidney function MANDY 02/01: will check 24 hour urine protein per nephrology 01/31: patient s/p permacath placement with Dr. Haro 01/30. Received dialysis late yesterday. Repeat dialysis this afternoon 01/31. Will have HD MWF. Dr. Burger, nephrology, consulted- help appreciated possible etiologies include cardiorenal syndrome, acute allergic interstitial nephritis creatinine rising, today 5.7, was 3.7 on (01/25), creatinine baseline 0.9 end of December 2017/ beginning January 2018 urine protein 50.0 urine eosinophil count pending Bladder US: renal parenchymal disease Dyspnea 02/01: chest xray with worsening pulmonary vascular congestion, will check echo CT Chest: pulmonary vascular congestion with small to moderate bilateral pleural effusions and subjacent atelectasis (see full report) continue lasix 80mg IVP daily BNP 9070 no echocardiogram in our EMR Transaminitis 01/31: downtrending LFTs after stopping Tylenol. Continue Ultram 50mg PO q6H PRN pain. 01/30: AST stable 142. ALT 129 and AlkP 190 uptrending. Stop Tylenol PRN. Start Ultram 50mg PO q6H PRN pain. AST/ ALT/ Alk phos increasing, today 175/ 121/180 T. Bili not elevated at 0.7 hepatitis A & B negative Hepatitis C negative RPR, HIV negative HTN hydralazine 50mg PO Q8h norvasc 10mg PO daily DM ISS Accucheck ACHS A1c 7.0 in 12/2017 holding all PO meds currently due to renal function left hallux amputation site bandaged Left hallux amputation procedure performed on last admission Dr. Logan, podiatry, following while patient in-house Prophylactic measure heparin 5,000unit Q12h (renal dosing) protonix 40mg IVP daily All medical management as per Dr. Deluna
[2018-02-01] MEDS: (Novolog) Insulin Aspart, Recombinant 100 u/ml 10 ml vial SC SCH ×4 (08:27→21:35)
--- NOTE | 2018-02-01 09:24 | CP.PCM.PN ---
Subjective - Date & Time of Evaluation Date of Evaluation: 02/01/18 Time of Evaluation: 09:21 - Subjective Subjective: s/p dialysis 01/31; UF 1000ml undergoing vascular testing now likely has significant CKD as well as MANDY still febrile BP elevated CXR with CHF Objective - Vital Signs/Intake and Output Vital Signs (last 24 hours): Temp Pulse Resp BP Pulse Ox 97.6 F 86 22 175/75 H 100 02/01/18 07:30 02/01/18 08:00 02/01/18 07:30 02/01/18 07:30 02/01/18 07:30 Intake and Output: 02/01/18 02/01/18 06:59 18:59 Intake Total 1090 Balance 1090 - Medications Medications: Current Medications Acetaminophen (Tylenol 325mg Tab) 650 mg PO Q4 [facility] Last Admin: 01/30/18 16:12 Dose: Not Given Albuterol/Ipratropium (Duoneb 3 Mg/0.5 Mg (3 Ml) Ud) 3 ml INH RQ6 DIA Last Admin: 02/01/18 07:46 Dose: 3 ml Amlodipine Besylate (Norvasc) 10 mg PO DAILY DIA Last Admin: 01/31/18 11:00 Dose: Not Given Furosemide (Lasix) 80 mg IVP DAILY DIA Last Admin: 01/31/18 11:00 Dose: Not Given Heparin Sodium (Porcine) (Heparin) 5,000 units SC Q12 DIA Last Admin: 01/31/18 21:45 Dose: 5,000 units Hydralazine HCl (Apresoline) 50 mg PO Q8 DIA Last Admin: 02/01/18 05:15 Dose: 50 mg Aztreonam 1 gm/ Sodium (Chloride) 100 mls @ 200 mls/hr IVPB Q24H DIA PRN Reason: Protocol Last Admin: 02/01/18 02:21 Dose: 200 mls/hr Sodium Chloride (Sodium Chloride 0.9%) 1,000 mls @ 50 mls/hr IV .Q20H DIA Last Admin: 02/01/18 03:45 Dose: 50 mls/hr Meropenem 500 mg/ Sodium (Chloride) 100 mls @ 100 mls/hr IVPB Q12H DIA PRN Reason: Protocol Last Admin: 01/31/18 22:20 Dose: 100 mls/hr Vancomycin HCl 1 gm/ Sodium (Chloride) 200 mls @ 166.7 mls/hr IVPB MWF DIA PRN Reason: Protocol Last Admin: 01/31/18 17:18 Dose: 166.7 mls/hr Insulin Aspart (Novolog) 0 unit SC ACHS DIA PRN Reason: Protocol Last Admin: 01/31/18 21:04 Dose: Not Given Pantoprazole Sodium (Protonix Ec Tab) 40 mg PO DAILY [facility] Last Admin: 01/31/18 10:11 Dose: 40 mg Tramadol HCl (Ultram) 50 mg PO Q6H PRN PRN Reason: Pain, moderate (4-7) - Labs Labs: 02/01/18 07:10 02/01/18 07:10 PT 13.3 SECONDS (9.7-12.2) H 01/25/18 00:44 INR 1.2 01/25/18 00:44 APTT 33 SECONDS (21-34) 01/25/18 00:44 - Constitutional Appears: In Acute Distress, Chronically Ill - Head Exam Head Exam: ATRAUMATIC, NORMAL INSPECTION - Eye Exam Eye Exam: EOMI, Normal appearance - Neck Exam Neck Exam: Normal Inspection. absent: Tenderness - Respiratory Exam Respiratory Exam: Rhonchi, Respiratory Distress - Cardiovascular Exam Cardiovascular Exam: REGULAR RHYTHM, +S1 - GI/Abdominal Exam GI & Abdominal Exam: Soft. absent: Tenderness - Extremities Exam Extremities Exam: Pedal Edema. absent: Tenderness - Neurological Exam Neurological Exam: Awake, CN II-XII Intact - Skin Skin Exam: Dry, Warm Assessment and Plan (1) MANDY (acute kidney injury) Status: Acute (2) Type 2 diabetes mellitus with diabetic nephropathy Status: Acute (3) Fever Status: Acute (4) Diabetes 1.5, managed as type 2 Status: Acute (5) Nonhealing ulcer of left lower extremity Status: Acute (6) CHF (congestive heart failure) Status: Acute - Assessment and Plan (Free Text) Plan: extra dialysis today increase BP meds consider AV access if not better
[2018-02-01] MEDS: Pantoprazole 40 mg EC Tab PO SCH ×2 (10:31→14:07)
[2018-02-01] MEDS: Meropenem 500 MG in Sodium Chloride 0.9% 100 ML IVPB SCH ×2 (10:34→22:16)
--- NOTE | 2018-02-01 10:57 | RAD ---
HISTORY: pulmonary congestion COMPARISON: 01/30/2018. FINDINGS: The right-sided dialysis catheter terminates at the cavoatrial junction. LUNGS: There is moderate pulmonary venous congestion. PLEURA: There are moderate pleural effusions, no pneumothorax apparent. CARDIOVASCULAR: Normal. OSSEOUS STRUCTURES: Within normal limits for the patient's age. VISUALIZED UPPER ABDOMEN: Normal. OTHER FINDINGS: None. IMPRESSION: No significant interval change in moderate pulmonary venous congestion and moderate pleural effusions.
--- NOTE | 2018-02-01 14:51 | VASCLAB ---
PROCEDURE: Lower Extremity Venous Duplex Exam. HISTORY: Edema PRIORS: None. TECHNIQUE: Bilateral common femoral, femoral, popliteal and posterior tibial, peroneal and great saphenous veins were evaluated. Flow was assessed with color Doppler, compressibility, assessment of phasic flow and augmentation response. Report prepared by ZULEIKA Thomas FINDINGS: RIGHT: 1. Common Femoral Vein: 1.1. Compressibility - Fully compressible: Thrombus - None : Flow - Phasic: Augmentation -Normal: Reflux - None. 2. Femoral Vein: 2.1. Compressibility - Fully compressible: Thrombus - None : Flow - Phasic: Augmentation -Normal: Reflux - None. 3. Popliteal Vein: 3.1. Compressibility - Fully compressible: Thrombus - None : Flow - Phasic: Augmentation -Normal: Reflux - None. 4. Posterior Tibial Vein: 4.1. Compressibility - Fully compressible: Thrombus - None: Flow - Phasic: Augmentation -Normal: Reflux - None. 5. Peroneal Vein: 5.1. Compressibility - Fully compressible: Thrombus - None: Flow - Phasic: Augmentation -Normal: Reflux - None. 6. Great Saphenous Vein: 6.1. Compressibility - Fully compressible: Thrombus - None: Flow - Phasic: Augmentation - Normal: Reflux - None. LEFT: 1. Common Femoral Vein: 1.1. Compressibility - Fully compressible: Thrombus - None: Flow - Phasic: Augmentation -Normal: Reflux - None. 2. Femoral Vein: 2.1. Compressibility - Fully compressible: Thrombus - None: Flow - Phasic: Augmentation -Normal: Reflux - None. 3. Popliteal Vein: 3.1. Compressibility - Fully compressible: Thrombus - None : Flow - Phasic: Augmentation -Normal: Reflux - None. 4. Posterior Tibial Vein: 4.1. Compressibility - Fully compressible: Thrombus - None: Flow - Phasic: Augmentation -Normal: Reflux - None. 5. Peroneal Vein: 5.1. Compressibility - Fully compressible: Thrombus - None: Flow - Phasic: Augmentation -Normal: Reflux - None. 6. Great Saphenous Vein: 6.1. Compressibility - Fully compressible: Thrombus - None: Flow - Phasic: Augmentation - Normal: Reflux - None. OTHER FINDINGS: Right: None significant. Left: None significant. IMPRESSION: Right: No evidence of deep or superficial vein thrombosis of the right lower extremity. Normal valve function noted of the right side. Left: No evidence of deep or superficial vein thrombosis of the left lower extremity. Normal valve function noted of the left side.
--- NOTE | 2018-02-01 14:56 | VASCLAB ---
PROCEDURE: Left Upper Extremity Venous Duplex Exam HISTORY: ESRD, Vein mapping, Pre-op AV Fistula PRIORS: No previous venous mapping. TECHNIQUE: Left upper extremity, internal jugular, subclavian, axillary, brachial, ulnar, radial, basilic and upper cephalic veins were evaluated. Flow was assessed with color Doppler, compressibility, assessment of phasic flow and augmentation response. Report prepared by ZULEIKA Thomas FINDINGS: LEFT: 1. Internal Jugular Vein: Compressibility - Fully compressible: Thrombus - None : Flow - Phasic 2. Subclavian Vein:Compressibility - Fully compressible: Thrombus - None : Flow - Phasic 3. Axillary Vein: Compressibility - Fully compressible: Thrombus - None 4. Brachial Vein: Compressibility - Fully compressible: Thrombus - None 5. Ulnar Vein:Compressibility - Fully compressible: Thrombus - None 6. Radial Vein:Compressibility - Fully compressible: Thrombus - None 7. Cephalic Vein: NOT VISUALIZED. 8. Basilic Vein:Compressibility - Fully compressible: thrombus - None 8.1. Upper Arm:Proximal Diameter: 0.52cm. Mid Diameter: 0.62cm. Distal Diameter: 0.32cm. 8.2. Forearm: Proximal Diameter: 0.19cm. Mid Diameter:0.22 cm. Distal Diameter: 0.12cm. OTHER FINDINGS: The left brachial, radial and ulnar arteries appeared patent. IMPRESSION: 1. No evidence of venous thrombosis in the left upper extremity. 2. Please refer to the above listed measurements for the vein sizes.
--- NOTE | 2018-02-01 16:15 | CP.PCM.PN ---
Subjective - Date & Time of Evaluation Date of Evaluation: 02/01/18 Time of Evaluation: 02:45 - Subjective Subjective: dictated Objective - Vital Signs/Intake and Output Vital Signs (last 24 hours): Temp Pulse Resp BP Pulse Ox 99.5 F 86 20 163/69 H 97 02/01/18 16:09 02/01/18 16:09 02/01/18 16:09 02/01/18 16:09 02/01/18 16:09 Intake and Output: 02/01/18 02/01/18 06:59 18:59 Intake Total 1090 Balance 1090 - Medications Medications: Current Medications Acetaminophen (Tylenol 325mg Tab) 650 mg PO Q4 [facility] Last Admin: 01/30/18 16:12 Dose: Not Given Albuterol/Ipratropium (Duoneb 3 Mg/0.5 Mg (3 Ml) Ud) 3 ml INH RQ6 DIA Last Admin: 02/01/18 13:29 Dose: Not Given Amlodipine Besylate (Norvasc) 10 mg PO DAILY [facility] Last Admin: 02/01/18 14:08 Dose: 10 mg Carvedilol (Coreg) 3.125 mg PO BID DIA Last Admin: 02/01/18 10:31 Dose: Not Given Furosemide (Lasix) 80 mg IVP DAILY DIA Last Admin: 02/01/18 10:31 Dose: Not Given Heparin Sodium (Porcine) (Heparin) 5,000 units SC Q12 DIA Last Admin: 02/01/18 10:31 Dose: Not Given Hydralazine HCl (Apresoline) 50 mg PO Q8 DIA Last Admin: 02/01/18 14:06 Dose: 50 mg Aztreonam 1 gm/ Sodium (Chloride) 100 mls @ 200 mls/hr IVPB Q24H DIA PRN Reason: Protocol Last Admin: 02/01/18 02:21 Dose: 200 mls/hr Sodium Chloride (Sodium Chloride 0.9%) 1,000 mls @ 50 mls/hr IV .Q20H DIA Last Admin: 02/01/18 03:45 Dose: 50 mls/hr Meropenem 500 mg/ Sodium (Chloride) 100 mls @ 100 mls/hr IVPB Q12H DIA PRN Reason: Protocol Last Admin: 02/01/18 10:34 Dose: Not Given Vancomycin HCl 1 gm/ Sodium (Chloride) 200 mls @ 166.7 mls/hr IVPB MWF [facility] PRN Reason: Protocol Last Admin: 01/31/18 17:18 Dose: 166.7 mls/hr Insulin Aspart (Novolog) 0 unit SC ACHS DIA PRN Reason: Protocol Last Admin: 02/01/18 13:00 Dose: Not Given Pantoprazole Sodium (Protonix Ec Tab) 40 mg PO DAILY [facility] Last Admin: 02/01/18 14:07 Dose: 40 mg Tramadol HCl (Ultram) 50 mg PO Q6H PRN PRN Reason: Pain, moderate (4-7) - Labs Labs: 02/01/18 07:10 02/01/18 07:10 PT 13.3 SECONDS (9.7-12.2) H 01/25/18 00:44 INR 1.2 01/25/18 00:44 APTT 33 SECONDS (21-34) 01/25/18 00:44
--- NOTE | 2018-02-01 19:09 | CP.PCM.PN ---
Subjective - Date & Time of Evaluation Date of Evaluation: 02/01/18 Time of Evaluation: 09:40 - Subjective Subjective: clinically same Objective - Vital Signs/Intake and Output Vital Signs (last 24 hours): Temp Pulse Resp BP Pulse Ox 99.5 F 94 H 20 163/69 H 97 02/01/18 16:09 02/01/18 18:41 02/01/18 16:09 02/01/18 16:09 02/01/18 16:09 - Medications Medications: Current Medications Acetaminophen (Tylenol 325mg Tab) 650 mg PO Q4 [facility] Last Admin: 01/30/18 16:12 Dose: Not Given Albuterol/Ipratropium (Duoneb 3 Mg/0.5 Mg (3 Ml) Ud) 3 ml INH RQ6 [facility] Last Admin: 02/01/18 13:29 Dose: Not Given Amlodipine Besylate (Norvasc) 10 mg PO DAILY [facility] Last Admin: 02/01/18 14:08 Dose: 10 mg Carvedilol (Coreg) 3.125 mg PO BID [facility] Last Admin: 02/01/18 17:23 Dose: 3.125 mg Furosemide (Lasix) 80 mg IVP DAILY [facility] Last Admin: 02/01/18 10:31 Dose: Not Given Heparin Sodium (Porcine) (Heparin) 5,000 units SC Q12 [facility] Last Admin: 02/01/18 10:31 Dose: Not Given Hydralazine HCl (Apresoline) 50 mg PO Q8 [facility] Last Admin: 02/01/18 14:06 Dose: 50 mg Meropenem 500 mg/ Sodium (Chloride) 100 mls @ 100 mls/hr IVPB Q12H DIA PRN Reason: Protocol Last Admin: 02/01/18 10:34 Dose: Not Given Vancomycin HCl 1 gm/ Sodium (Chloride) 200 mls @ 166.7 mls/hr IVPB MWF [facility] PRN Reason: Protocol Last Admin: 01/31/18 17:18 Dose: 166.7 mls/hr Insulin Aspart (Novolog) 0 unit SC ACHS [facility] PRN Reason: Protocol Last Admin: 02/01/18 17:23 Dose: 2 unit Pantoprazole Sodium (Protonix Ec Tab) 40 mg PO DAILY [facility] Last Admin: 02/01/18 14:07 Dose: 40 mg Tramadol HCl (Ultram) 50 mg PO Q6H PRN PRN Reason: Pain, moderate (4-7) - Labs Labs: 02/01/18 07:10 02/01/18 07:10 PT 13.3 SECONDS (9.7-12.2) H 01/25/18 00:44 INR 1.2 01/25/18 00:44 APTT 33 SECONDS (21-34) 01/25/18 00:44 - Constitutional Appears: Well - Head Exam Head Exam: ATRAUMATIC, NORMAL INSPECTION, NORMOCEPHALIC - Eye Exam Eye Exam: EOMI, Normal appearance, PERRL Pupil Exam: NORMAL ACCOMODATION, PERRL - ENT Exam ENT Exam: Mucous Membranes Moist, Normal Exam - Neck Exam Neck Exam: Full ROM, Normal Inspection. absent: Lymphadenopathy - Respiratory Exam Respiratory Exam: Decreased Breath Sounds - Cardiovascular Exam Cardiovascular Exam: REGULAR RHYTHM, +S1, +S2 - GI/Abdominal Exam GI & Abdominal Exam: Soft, Diminished Bowel Sounds - Rectal Exam Rectal Exam: Deferred
[2018-02-02] MEDS: Albuterol-Ipratrop 3 mg / 0.5 (3 ml) UD INH SCH ×4 (01:33→19:32)
--- NOTE | 2018-02-02 06:25 | PN ---
DATE: 02/01/2018 SUBJECTIVE: Patient is still running fevers at night and it is unclear in spite of being on multiple antibiotics and he also had x-ray, dialysis today, but he looks relatively little better and less short of breath. He has no more chills at this time but did have fever last night. OBJECTIVE: VITAL SIGNS: T max is 98.9, pulse 80, blood pressure 149/80, respirations are 18. HEENT: Head is atraumatic. NECK: Supple. LUNGS: Clear. Decreased breath sounds on both bases. HEART: S1, S2 is regular. ABDOMEN: Soft, nontender. No guarding, no rigidity present. EXTREMITIES: Left foot has a dressing on it. Right leg appears to be little swollen with redness also. LABORATORY AND IMAGING STUDIES: White count is 9.5, hemoglobin 8.4, hematocrit 24.4, platelet count is 232. BUN is 21, creatinine is 3.3 is relatively better. His liver enzymes are elevated and on the CAT scan we found that he has chronic pancreatitis, however, there is no history of drinking. Glucose is 163. He remains with the fevers. Cultures have been negative so far 24 hours from 06:27. Urine culture is negative. So, he remains on the catheter. He has a new catheter which was placed on for dialysis. If he continues to be febrile, then we may have to change this catheter and I am going to also order an MRI of the left foot as he is still having fevers. IMPRESSION: This patient is septic and still etiology is unclear, remains in renal failure and diabetes at this time. We will follow. Tiffany Blancas MD
[2018-02-02 07:28] LABS: BASO % 0.5 % (0.0-2.0); EOS # 1.5 K/uL (0.0-0.7); EOS % 16.6 % (0.0-4.0); HEMOGLOBIN 8.7 g/dL (12.0-18.0); LYMPH # 1.6 K/uL (1.0-4.3); LYMPH % 17.9 % (20.0-40.0); MEAN CELL VOLUME 85.9 fL (80.0-94.0); MEAN CORPUSCULAR HEMOGLOBIN 29.8 pg (27.0-31.0); MEAN CORPUSCULAR HGB CONC 34.7 g/dL (33.0-37.0); MONO # 0.8 K/uL (0.0-0.8); MONO % 8.8 % (0.0-10.0); NEUT % 56.2 % (50.0-75.0); RBC 2.94 Mil/uL (4.40-5.90); RED CELL DISTRIBUTION WIDTH 14.6 % (11.5-14.5)
[2018-02-02] MEDS: (Novolog) Insulin Aspart, Recombinant 100 u/ml 10 ml vial SC SCH ×4 (07:30→22:06)
[2018-02-02 07:47] LABS: ALB/GLOB RATIO 1.1 (1.0-2.1); ALBUMIN 3.2 g/dL (3.5-5.0); CALCIUM 7.5 mg/dl (8.6-10.4)
--- NOTE | 2018-02-02 08:42 | CP.PCM.PN ---
Subjective - Date & Time of Evaluation Date of Evaluation: 02/02/18 Time of Evaluation: 08:39 - Subjective Subjective: Progress Note for Dr. Earnestine Deluna Patient seen and examined at bedside with family at bedside. No fever reported overnight. Patient is resting in bed comfortably. He is aware of his pending Left foot MRI to evaluate his infection. Otherwise he denies fever, chills, shortness of breath, chest pain, nausea, vomiting, urination symptoms. Objective - Vital Signs/Intake and Output Vital Signs (last 24 hours): Temp Pulse Resp BP Pulse Ox 98.9 F 85 20 153/72 H 95 02/02/18 07:19 02/02/18 07:19 02/02/18 07:19 02/02/18 07:19 02/02/18 07:19 Intake and Output: 02/02/18 02/02/18 06:59 18:59 Intake Total 300 Output Total 325 Balance -25 - Medications Medications: Current Medications Acetaminophen (Tylenol 325mg Tab) 650 mg PO Q4 [facility] Last Admin: 01/30/18 16:12 Dose: Not Given Albuterol/Ipratropium (Duoneb 3 Mg/0.5 Mg (3 Ml) Ud) 3 ml INH RQ6 DIA Last Admin: 02/02/18 01:33 Dose: 3 ml Amlodipine Besylate (Norvasc) 10 mg PO DAILY [facility] Last Admin: 02/01/18 14:08 Dose: 10 mg Carvedilol (Coreg) 3.125 mg PO BID [facility] Last Admin: 02/01/18 17:23 Dose: 3.125 mg Furosemide (Lasix) 80 mg IVP DAILY [facility] Last Admin: 02/01/18 10:31 Dose: Not Given Heparin Sodium (Porcine) (Heparin) 5,000 units SC Q12 DIA Last Admin: 02/01/18 22:16 Dose: 5,000 units Hydralazine HCl (Apresoline) 50 mg PO Q8 [facility] Last Admin: 02/02/18 05:47 Dose: 50 mg Meropenem 500 mg/ Sodium (Chloride) 100 mls @ 100 mls/hr IVPB Q12H DIA PRN Reason: Protocol Last Admin: 02/01/18 22:16 Dose: 100 mls/hr Vancomycin HCl 1 gm/ Sodium (Chloride) 200 mls @ 166.7 mls/hr IVPB MWF DIA PRN Reason: Protocol Last Admin: 01/31/18 17:18 Dose: 166.7 mls/hr Insulin Aspart (Novolog) 0 unit SC ACHS DIA PRN Reason: Protocol Last Admin: 02/01/18 21:35 Dose: Not Given Pantoprazole Sodium (Protonix Ec Tab) 40 mg PO DAILY [facility] Last Admin: 02/01/18 14:07 Dose: 40 mg Tramadol HCl (Ultram) 50 mg PO Q6H PRN PRN Reason: Pain, moderate (4-7) - Labs Labs: 02/02/18 07:16 02/02/18 07:16 PT 13.3 SECONDS (9.7-12.2) H 01/25/18 00:44 INR 1.2 01/25/18 00:44 APTT 33 SECONDS (21-34) 01/25/18 00:44 - Additional Findings Additional findings: - Constitutional Appears: No Acute Distress, Chronically Ill - Head Exam Head Exam: ATRAUMATIC - Eye Exam Eye Exam: EOMI - ENT Exam ENT Exam: Mucous Membranes Moist - Neck Exam Additional comments: right chest permacath - Respiratory Exam Respiratory Exam: Decreased Breath Sounds, Rales - Cardiovascular Exam Cardiovascular Exam: +S1, +S2 - GI/Abdominal Exam GI & Abdominal Exam: Soft, Normal Bowel Sounds - Extremities Exam Extremities Exam: Pedal Edema (mild pitting, improved erythema) Additional comments: hallux amputation site with betadyne soaked dressing - Neurological Exam Neurological Exam: Alert, Awake Assessment and Plan - Assessment and Plan (Free Text) Assessment: Leukocytosis 02/02: Afebrile overnight WBC 9 Repeat blood culture from 01/31 negative after 24 hours Continue with Vancomycin and Meropenem. Zyvox and Aztreonem discontinued on per ID Follow up MRI to r/o osteomyelitis 02/01: patient febrile overnight again, Tmax 101 WBC 9.5 antibiotic regimen adjusted by Dr. Blancas: aztreonam 1g q24, vancomycin added on dialysis days (MW), meropenem q12 IVPB repeat blood culture ordered as well as stool for ova and parasite due to eosinophilia 01/31: Febrile overnight at 102.6F. Started Aztreonam 1Gm IVPB q24H. Currently on: Aztreonam 1Gm IVPB q24H (started 01/30) Zyvox 600mg PO BID (started 01/29) Meropenem 500mg IVPB Q12 (started 01/30) L foot xray 01/31- negative CT chest/abd/pelv 01/30- Bilateral pleural effusion with lower lobe subsegmental atelectasis. Chronic pancreatitis. Mildly dilated main pulmonary artery. Correlate for any history of pulmonary arterial hypertension. Thickened bladder wall. Possible artifact due to outlet obstruction or cystitis. Anasarca. See full report. 01/30: WBC 10.2 today. Last fever on 01/27. Dr. Blancas, ID, consulted- help appreciated SIRS criteria present on admission (01/25): Temperature 101.2F, HR 106 SOFA score approximately 9 (no ABG for PaO2) initial VBG lactate (01/25) 4.1, repeat 1.0 procalcitonin 5.74 suspected possible sources include: line infection from prior PICC line- culture from (01/25) negative bacteremia- blood culture negative after 4 days pneumonia- chest CT negative for infiltrate however patient was dyspneic on admission, sputum culture uncollected urine- (01/25) urine culture negative prior hallux amputation site- recent amputation for osteomyelitis and was on IV abx prior to this admission. Podiatry team, Dr. Logan, consulted- recommendations appreciated patient on antibiotics: zyvox 600mg IVPB 12h (started 01/25) aztreonam 1gam IVPB q8h (started 01/28) patient previously on antibiotics: gentamicin 120mg x 1 dose (01/25) vancomycin x 1 dose (01/25) zosyn (01/25- 01/28) medications adjusted due to kidney function MANDY 02/01: will check 24 hour urine protein per nephrology 01/31: patient s/p permacath placement with Dr. Haro 01/30. Received dialysis late yesterday. Repeat dialysis this afternoon 01/31. Will have HD MWF. Dr. Burger, nephrology, consulted- help appreciated possible etiologies include cardiorenal syndrome, acute allergic interstitial nephritis creatinine rising, today 5.7, was 3.7 on (01/25), creatinine baseline 0.9 end of December 2017/ beginning January 2018 urine protein 50.0 urine eosinophil count pending Bladder US: renal parenchymal disease Dyspnea 02/02: patient underwent echo, follow up results 02/01: chest xray with worsening pulmonary vascular congestion, will check echo CT Chest: pulmonary vascular congestion with small to moderate bilateral pleural effusions and subjacent atelectasis (see full report) continue lasix 80mg IVP daily BNP 9070 no echocardiogram in our EMR Transaminitis 02/02: continue downtrending AST/ALT 60/85 today 01/31: downtrending LFTs after stopping Tylenol. Continue Ultram 50mg PO q6H PRN pain. 01/30: AST stable 142. ALT 129 and AlkP 190 uptrending. Stop Tylenol PRN. Start Ultram 50mg PO q6H PRN pain. AST/ ALT/ Alk phos increasing, today 175/ 121/180 T. Bili not elevated at 0.7 hepatitis A & B negative Hepatitis C negative RPR, HIV negative HTN hydralazine 50mg PO Q8h norvasc 10mg PO daily DM ISS Accucheck ACHS A1c 7.0 in 12/2017 holding all PO meds currently due to renal function left hallux amputation site bandaged Left hallux amputation procedure performed on last admission Dr. Logan, podiatry, following while patient in-house Prophylactic measure heparin 5,000unit Q12h (renal dosing) protonix 40mg IVP daily All medical management as per Dr. Deluna
[2018-02-02] MEDS: Vancomycin 1 GM in Sodium Chloride 0.9% 200 ML IVPB SCH (08:55)
[2018-02-02] MEDS: Pantoprazole 40 mg EC Tab PO SCH (09:17)
--- NOTE | 2018-02-02 10:26 | CP.PCM.PN ---
Subjective - Date & Time of Evaluation Date of Evaluation: 02/02/18 Time of Evaluation: 08:40 - Subjective Subjective: clinically same Objective - Vital Signs/Intake and Output Vital Signs (last 24 hours): Temp Pulse Resp BP Pulse Ox 98.9 F 85 20 150/70 95 02/02/18 07:19 02/02/18 07:19 02/02/18 07:19 02/02/18 09:17 02/02/18 07:19 Intake and Output: 02/02/18 02/02/18 06:59 18:59 Intake Total 300 Output Total 325 Balance -25 - Medications Medications: Current Medications Acetaminophen (Tylenol 325mg Tab) 650 mg PO Q4 [facility] Last Admin: 01/30/18 16:12 Dose: Not Given Albuterol/Ipratropium (Duoneb 3 Mg/0.5 Mg (3 Ml) Ud) 3 ml INH RQ6 [facility] Last Admin: 02/02/18 09:02 Dose: 3 ml Amlodipine Besylate (Norvasc) 10 mg PO DAILY [facility] Last Admin: 02/02/18 09:17 Dose: 10 mg Carvedilol (Coreg) 3.125 mg PO BID [facility] Last Admin: 02/02/18 09:17 Dose: 3.125 mg Furosemide (Lasix) 80 mg IVP DAILY [facility] Last Admin: 02/02/18 09:17 Dose: 80 mg Heparin Sodium (Porcine) (Heparin) 5,000 units SC Q12 [facility] Last Admin: 02/02/18 09:17 Dose: 5,000 units Hydralazine HCl (Apresoline) 50 mg PO Q8 [facility] Last Admin: 02/02/18 05:47 Dose: 50 mg Meropenem 500 mg/ Sodium (Chloride) 100 mls @ 100 mls/hr IVPB Q12H DIA PRN Reason: Protocol Last Admin: 02/01/18 22:16 Dose: 100 mls/hr Vancomycin HCl 1 gm/ Sodium (Chloride) 200 mls @ 166.7 mls/hr IVPB MWF [facility] PRN Reason: Protocol Last Admin: 02/02/18 08:55 Dose: 166.7 mls/hr Insulin Aspart (Novolog) 0 unit SC ACHS [facility] PRN Reason: Protocol Last Admin: 02/01/18 21:35 Dose: Not Given Pantoprazole Sodium (Protonix Ec Tab) 40 mg PO DAILY [facility] Last Admin: 02/02/18 09:17 Dose: 40 mg Tramadol HCl (Ultram) 50 mg PO Q6H PRN PRN Reason: Pain, moderate (4-7) - Labs Labs: 02/02/18 07:16 02/02/18 07:16 PT 13.3 SECONDS (9.7-12.2) H 01/25/18 00:44 INR 1.2 01/25/18 00:44 APTT 33 SECONDS (21-34) 01/25/18 00:44 - Constitutional Appears: Well - Head Exam Head Exam: ATRAUMATIC, NORMAL INSPECTION, NORMOCEPHALIC - Eye Exam Eye Exam: EOMI, Normal appearance, PERRL Pupil Exam: NORMAL ACCOMODATION, PERRL - ENT Exam ENT Exam: Mucous Membranes Moist, Normal Exam - Neck Exam Neck Exam: Full ROM, Normal Inspection. absent: Lymphadenopathy - Respiratory Exam Respiratory Exam: Decreased Breath Sounds - Cardiovascular Exam Cardiovascular Exam: REGULAR RHYTHM, +S1, +S2 - GI/Abdominal Exam GI & Abdominal Exam: Soft, Diminished Bowel Sounds - Rectal Exam Rectal Exam: Deferred
[2018-02-02] MEDS: Meropenem 500 MG in Sodium Chloride 0.9% 100 ML IVPB SCH ×2 (10:55→22:07)
--- NOTE | 2018-02-02 11:07 | CP.PCM.PN ---
Subjective - Date & Time of Evaluation Date of Evaluation: 02/02/18 Time of Evaluation: 11:03 - Subjective Subjective: Podiatry progress notes for attending Desmond Recinos 62 yo patient 4 weeks s/p left foot partial hallux amputation seen and evaluated at the bedside. patient is resting comfortably, AAOx3, and in no acute distress. His Left foot dressing is CDI. Family member by bedside. Patient denies any other pedal complaints at this time. Patient denies N/V/F/C/ SOB/CP/pain on posterior calf recently. Objective - Vital Signs/Intake and Output Vital Signs (last 24 hours): Temp Pulse Resp BP Pulse Ox 98.9 F 85 20 150/70 95 02/02/18 07:19 02/02/18 07:19 02/02/18 07:19 02/02/18 09:17 02/02/18 07:19 Intake and Output: 02/02/18 02/02/18 06:59 18:59 Intake Total 300 Output Total 325 Balance -25 - Medications Medications: Current Medications Acetaminophen (Tylenol 325mg Tab) 650 mg PO Q4 [facility] Last Admin: 01/30/18 16:12 Dose: Not Given Albuterol/Ipratropium (Duoneb 3 Mg/0.5 Mg (3 Ml) Ud) 3 ml INH RQ6 [facility]IA Last Admin: 02/02/18 09:02 Dose: 3 ml Amlodipine Besylate (Norvasc) 10 mg PO DAILY [facility] Last Admin: 02/02/18 09:17 Dose: 10 mg Carvedilol (Coreg) 3.125 mg PO BID [facility]IA Last Admin: 02/02/18 09:17 Dose: 3.125 mg Furosemide (Lasix) 80 mg IVP DAILY [facility] Last Admin: 02/02/18 09:17 Dose: 80 mg Heparin Sodium (Porcine) (Heparin) 5,000 units SC Q12 [facility]IA Last Admin: 02/02/18 09:17 Dose: 5,000 units Hydralazine HCl (Apresoline) 50 mg PO Q8 [facility] Last Admin: 02/02/18 05:47 Dose: 50 mg Meropenem 500 mg/ Sodium (Chloride) 100 mls @ 100 mls/hr IVPB Q12H DIA PRN Reason: Protocol Last Admin: 02/02/18 10:55 Dose: 100 mls/hr Vancomycin HCl 1 gm/ Sodium (Chloride) 200 mls @ 166.7 mls/hr IVPB MWF DIA PRN Reason: Protocol Last Admin: 02/02/18 08:55 Dose: 166.7 mls/hr Insulin Aspart (Novolog) 0 unit SC ACHS [facility] PRN Reason: Protocol Last Admin: 02/02/18 07:30 Dose: Not Given Pantoprazole Sodium (Protonix Ec Tab) 40 mg PO DAILY [facility] Last Admin: 02/02/18 09:17 Dose: 40 mg Tramadol HCl (Ultram) 50 mg PO Q6H PRN PRN Reason: Pain, moderate (4-7) - Labs Labs: 02/02/18 07:16 02/02/18 07:16 PT 13.3 SECONDS (9.7-12.2) H 01/25/18 00:44 INR 1.2 01/25/18 00:44 APTT 33 SECONDS (21-34) 01/25/18 00:44 - Constitutional Appears: Non-toxic, No Acute Distress - Head Exam Head Exam: ATRAUMATIC, NORMOCEPHALIC - Extremities Exam Additional comments: Left LE focused exam VASC: DP/PT pulses non-palpable, Cap refill delayed > 3 sec in all digits, Temp gradient warm to cool. No edema. NEURO: Gross and protective sensation intact DERM: Surgical incision site appears well coapted, no sutures remain, there is no evidence of wound dehiscence, no malodor, minimal non purulent drainage, No clinical signs of acute infection noted. MSK: no pain on palpation at the surgical site, no gross deformities present. Partially amputated L hallux. - Neurological Exam Neurological Exam: Alert, Awake, Oriented x3 - Psychiatric Exam Psychiatric exam: Normal Affect, Normal Mood Assessment and Plan - Assessment and Plan (Free Text) Assessment: 62 yo patient 4 weeks s/p left hallux partial amputation Plan: Patient was seen and evaluatedat the bedside Discussed plan in detail with attending Dr. Logan Labs and vitals reviewed; WBC 9.0 Left hallux dressed using betaine, DSD and kerlix. Patient is stable from podiatry standpoint Podiatry will continue to follow in house.
--- NOTE | 2018-02-02 14:11 | CP.PCM.PN ---
Subjective - Date & Time of Evaluation Date of Evaluation: 02/02/18 Time of Evaluation: 14:09 - Subjective Subjective: stable dialysis 02/01 afebrile now; no chills, n, v, less dyspneic feels better still edematous but better LE venous dopplers negative for DVT doing well on HD Objective - Vital Signs/Intake and Output Vital Signs (last 24 hours): Temp Pulse Resp BP Pulse Ox 98.9 F 82 20 150/70 95 02/02/18 07:19 02/02/18 07:35 02/02/18 07:19 02/02/18 09:17 02/02/18 07:19 Intake and Output: 02/02/18 02/02/18 06:59 18:59 Intake Total 300 Output Total 325 Balance -25 - Medications Medications: Current Medications Acetaminophen (Tylenol 325mg Tab) 650 mg PO Q4 [facility] Last Admin: 01/30/18 16:12 Dose: Not Given Albuterol/Ipratropium (Duoneb 3 Mg/0.5 Mg (3 Ml) Ud) 3 ml INH RQ6 [facility]IA Last Admin: 02/02/18 13:34 Dose: 3 ml Amlodipine Besylate (Norvasc) 10 mg PO DAILY [facility] Last Admin: 02/02/18 09:17 Dose: 10 mg Carvedilol (Coreg) 3.125 mg PO BID [facility] Last Admin: 02/02/18 09:17 Dose: 3.125 mg Furosemide (Lasix) 80 mg IVP DAILY [facility] Last Admin: 02/02/18 09:17 Dose: 80 mg Heparin Sodium (Porcine) (Heparin) 5,000 units SC Q12 [facility]IA Last Admin: 02/02/18 09:17 Dose: 5,000 units Hydralazine HCl (Apresoline) 50 mg PO Q8 [facility] Last Admin: 02/02/18 13:28 Dose: 50 mg Meropenem 500 mg/ Sodium (Chloride) 100 mls @ 100 mls/hr IVPB Q12H DIA PRN Reason: Protocol Last Admin: 02/02/18 10:55 Dose: 100 mls/hr Vancomycin HCl 1 gm/ Sodium (Chloride) 200 mls @ 166.7 mls/hr IVPB MWF DIA PRN Reason: Protocol Last Admin: 02/02/18 08:55 Dose: 166.7 mls/hr Insulin Aspart (Novolog) 0 unit SC ACHS DIA PRN Reason: Protocol Last Admin: 02/02/18 11:25 Dose: 3 unit Pantoprazole Sodium (Protonix Ec Tab) 40 mg PO DAILY [facility] Last Admin: 02/02/18 09:17 Dose: 40 mg Tramadol HCl (Ultram) 50 mg PO Q6H PRN PRN Reason: Pain, moderate (4-7) - Labs Labs: 02/02/18 07:16 02/02/18 07:16 PT 13.3 SECONDS (9.7-12.2) H 01/25/18 00:44 INR 1.2 01/25/18 00:44 APTT 33 SECONDS (21-34) 01/25/18 00:44 - Constitutional Appears: No Acute Distress, Chronically Ill - Head Exam Head Exam: ATRAUMATIC, NORMAL INSPECTION - Eye Exam Eye Exam: EOMI, Normal appearance - Neck Exam Neck Exam: Normal Inspection. absent: Tenderness - Respiratory Exam Respiratory Exam: Clear to Ausculation Bilateral, NORMAL BREATHING PATTERN - Cardiovascular Exam Cardiovascular Exam: REGULAR RHYTHM, +S1 - GI/Abdominal Exam GI & Abdominal Exam: Soft. absent: Tenderness - Extremities Exam Extremities Exam: Normal Inspection. absent: Tenderness - Neurological Exam Neurological Exam: Awake, CN II-XII Intact - Skin Skin Exam: Dry, Warm Assessment and Plan (1) MANDY (acute kidney injury) Status: Acute (2) Type 2 diabetes mellitus with diabetic nephropathy Status: Acute (3) Fever Status: Acute (4) Diabetes 1.5, managed as type 2 Status: Acute (5) Nonhealing ulcer of left lower extremity Status: Acute (6) CHF (congestive heart failure) Status: Acute (7) ESRD (end stage renal disease) Status: Acute - Assessment and Plan (Free Text) Assessment: most likely ESRD Fluid overload PVD with cellulitis Plan: Increase UF goal with HD TTS increase BP meds check Hg
--- NOTE | 2018-02-02 17:59 | CARD ---
APPROVED REPORT EXAM: Two-dimensional and M-mode echocardiogram with Doppler and color Doppler. Other Information Quality : GoodRhythm : INDICATION Congestive Heart Failure RISK FACTORS Hypertension Diabetes 2D DIMENSIONS IVSd1.3 (0.7-1.1cm)LVDd4.1 (3.9-5.9cm) PWd1.1 (0.7-1.1cm)LVDs2.4 (2.5-4.0cm) FS (%) 41.4 %LVEF (%)72.8 (>50%) M-Mode DIMENSIONS Left Atrium (MM)4.60 (2.5-4.0cm)IVSd1.28 (0.7-1.1cm) Aortic Root3.63 (2.2-3.7cm)LVDd4.89 (4.0-5.6cm) Aortic Cusp Exc.1.66 (1.5-2.0cm)PWd1.07 (0.7-1.1cm) FS (%) 36 %LVDs3.11 (2.0-3.8cm) LVEF (%)66 (>50%) Mitral Valve MV E Kqrontlk31.2cm/sMV A Zsuhvlzj88.1cm/sE/A ratio1.4 TDI E/Lateral E'0.0E/Medial E'0.0 Tricuspid Valve TR Peak [id number]/sTR Peak Gr.[id number] LEFT VENTRICLE The left ventricle is normal size. There is normal left ventricular wall thickness. The left ventricular function is normal. The left ventricular ejection fraction is within the normal range. 70% No regional wall motion abnormalities noted. The left ventricular diastolic function is normal. No left ventricle thrombus noted on this study. There is no ventricular septal defect visualized. There is no left ventricular aneurysm. There is no mass noted in the left ventricle. RIGHT VENTRICLE The right ventricle is normal size. There is normal right ventricular wall thickness. The right ventricular systolic function is normal. ATRIA The left atrium size is normal. The right atrium size is normal. The interatrial septum is intact with no evidence for an atrial septal defect. AORTIC VALVE The aortic valve is normal in structure and function. No aortic regurgitation is present. There is no aortic valvular stenosis. There is no aortic valvular vegetation. MITRAL VALVE The mitral valve is normal in structure and function. There is no evidence of mitral valve prolapse. There is no mitral valve stenosis. There is trace mitral valve regurgitation noted. TRICUSPID VALVE The tricuspid valve is normal in structure and function. There is no tricuspid valve regurgitation noted. There is no tricuspid valve prolapse or vegetation. There is no tricuspid valve stenosis. PULMONIC VALVE The pulmonary valve is normal in structure and function. There is no pulmonic valvular regurgitation. There is no pulmonic valvular stenosis. GREAT VESSELS The aortic root is normal in size. The ascending aorta is normal in size. The pulmonary artery is normal. The IVC is normal in size and collapses >50% with inspiration. PERICARDIAL EFFUSION The pericardium appears normal.A trial effusion is noted adjacent to the RV There is a large left pleural effusion with mobile fibrinous material therein <Conclusion> Normal left ventricular systolic function. There is a large left pleural effusion with mobile fibrinous material therein Normal Doppler.
--- NOTE | 2018-02-02 18:42 | CP.PCM.PN ---
Subjective - Date & Time of Evaluation Date of Evaluation: 02/02/18 Time of Evaluation: 03:00 - Subjective Subjective: dictated Objective - Vital Signs/Intake and Output Vital Signs (last 24 hours): Temp Pulse Resp BP Pulse Ox 98.5 F 84 20 151/70 H 95 02/02/18 15:34 02/02/18 15:34 02/02/18 15:34 02/02/18 15:34 02/02/18 15:34 Intake and Output: 02/02/18 02/02/18 06:59 18:59 Intake Total 300 450 Output Total 325 Balance -25 450 - Medications Medications: Current Medications Acetaminophen (Tylenol 325mg Tab) 650 mg PO Q4 [facility] Last Admin: 01/30/18 16:12 Dose: Not Given Albuterol/Ipratropium (Duoneb 3 Mg/0.5 Mg (3 Ml) Ud) 3 ml INH RQ6 [facility] Last Admin: 02/02/18 13:34 Dose: 3 ml Amlodipine Besylate (Norvasc) 10 mg PO DAILY [facility] Last Admin: 02/02/18 09:17 Dose: 10 mg Carvedilol (Coreg) 6.25 mg PO BID [facility] Last Admin: 02/02/18 17:13 Dose: 6.25 mg Furosemide (Lasix) 80 mg IVP DAILY [facility] Last Admin: 02/02/18 09:17 Dose: 80 mg Heparin Sodium (Porcine) (Heparin) 5,000 units SC Q12 [facility] Last Admin: 02/02/18 09:17 Dose: 5,000 units Hydralazine HCl (Apresoline) 50 mg PO Q8 [facility] Last Admin: 02/02/18 13:28 Dose: 50 mg Meropenem 500 mg/ Sodium (Chloride) 100 mls @ 100 mls/hr IVPB Q12H [facility]IA PRN Reason: Protocol Last Admin: 02/02/18 10:55 Dose: 100 mls/hr Insulin Aspart (Novolog) 0 unit SC ACHS [facility]IA PRN Reason: Protocol Last Admin: 02/02/18 17:13 Dose: 3 unit Pantoprazole Sodium (Protonix Ec Tab) 40 mg PO DAILY [facility] Last Admin: 02/02/18 09:17 Dose: 40 mg Tramadol HCl (Ultram) 50 mg PO Q6H PRN PRN Reason: Pain, moderate (4-7) - Labs Labs: 02/02/18 07:16 02/02/18 07:16 PT 13.3 SECONDS (9.7-12.2) H 01/25/18 00:44 INR 1.2 01/25/18 00:44 APTT 33 SECONDS (21-34) 01/25/18 00:44
--- NOTE | 2018-02-02 23:54 | PN ---
DATE: 02/02/2018 SUBJECTIVE: The patient Ricardo Cuevas was seen today. He offers no complaints. He is a very quiet linden. I looked up at his legs, which appears cellulitic. He says he has been scratching on that, and he says he used to scratch a lot before when he was in the rehab and that makes me feel as if he is allergic to some drug. He also has eosinophilia in the blood count, and he is afebrile. He was afebrile overnight. I was told that the Amaryl will not help much as he is postop and the toe looks great with the bight maker, and she thinks there should not be an infection, but she has had to watch out if he remains febrile to inform her. The patient's fever is getting better. He looked less dyspneic. He is more alert. He has been getting dialysis MWF, and was also seen by [facility]. PHYSICAL EXAMINATION: VITAL SIGNS: T-max is 98.9, pulse 85, blood pressure 153/72, respirations are 20. HEENT: Head is atraumatic, normocephalic. Tongue is moist. NECK: Supple. LUNGS: Decreased breath sounds bilaterally. HEART: S1, S2 are regular. ABDOMEN: Soft, nontender. No guarding, no rigidity present. EXTREMITIES: Have edema plus and because of his scratching appears red. ASSESSMENT AND PLAN: At this time, I have decided to pull off the vancomycin and leave the Merrem on for now and see if his itching gets a little better, and he did complete treatment for the foot infection. If he remains febrile, then we will see if we need to cover more. Otherwise, I will plan to get him on oral antibiotic and once his creatinine function improves, I hope he could get off the dialysis, so at this time I have discontinued that and I will leave him on some Benadryl p.o. Etiology of his fevers, it could be lungs as they were full of fluid with pneumonia, but the other point is that Benadryl may make him more drowsy, so unless he asks for it, we are going to hold off on it and discontinue the vancomycin and see if he improves with the dialysis. We will follow. Tiffany Blancas MD [facility] # [phone]
[2018-02-03] MEDS: Albuterol-Ipratrop 3 mg / 0.5 (3 ml) UD INH SCH ×4 (01:05→19:16)
[2018-02-03 07:32] LABS: BASO # 0.1 K/uL (0.0-0.2); EOS # 1.5 K/uL (0.0-0.7); EOS % 14.9 % (0.0-4.0); HEMOGLOBIN 8.8 g/dL (12.0-18.0); LYMPH # 1.7 K/uL (1.0-4.3); LYMPH % 16.6 % (20.0-40.0); MEAN CELL VOLUME 85.9 fL (80.0-94.0); MEAN CORPUSCULAR HEMOGLOBIN 30.3 pg (27.0-31.0); MEAN CORPUSCULAR HGB CONC 35.3 g/dL (33.0-37.0); MONO % 9.7 % (0.0-10.0); NEUT # 5.8 K/uL (1.8-7.0); NEUT % 57.8 % (50.0-75.0); NRBC % 0.1 % (0.0-2.0); RBC 2.9 Mil/uL (4.40-5.90); RED CELL DISTRIBUTION WIDTH 14.1 % (11.5-14.5); WHITE BLOOD COUNT 10.1 K/uL (4.8-10.8)
[2018-02-03 07:47] LABS: ALB/GLOB RATIO 1.1 (1.0-2.1); ALBUMIN 3.4 g/dL (3.5-5.0); CALCIUM 7.6 mg/dl (8.6-10.4)
[2018-02-03] MEDS: (Novolog) Insulin Aspart, Recombinant 100 u/ml 10 ml vial SC SCH ×4 (07:56→21:24)
[2018-02-03] MEDS: Pantoprazole 40 mg EC Tab PO SCH (09:38)
--- NOTE | 2018-02-03 09:58 | CP.PCM.PN ---
Subjective - Date & Time of Evaluation Date of Evaluation: 02/03/18 Time of Evaluation: 09:56 - Subjective Subjective: repeat HD today via permcath tolerating remains edematous chronically ill appearing Objective - Vital Signs/Intake and Output Vital Signs (last 24 hours): Temp Pulse Resp BP Pulse Ox 97.8 F 88 20 168/78 H 96 02/03/18 07:28 02/03/18 07:28 02/03/18 07:28 02/03/18 09:38 02/03/18 07:28 Intake and Output: 02/03/18 02/03/18 06:59 18:59 Intake Total 870 Output Total 200 Balance 670 - Medications Medications: Current Medications Acetaminophen (Tylenol 325mg Tab) 650 mg PO Q4 [facility] Last Admin: 01/30/18 16:12 Dose: Not Given Albuterol/Ipratropium (Duoneb 3 Mg/0.5 Mg (3 Ml) Ud) 3 ml INH RQ6 [facility] Last Admin: 02/03/18 08:15 Dose: 3 ml Amlodipine Besylate (Norvasc) 10 mg PO DAILY [facility] Last Admin: 02/03/18 09:38 Dose: 10 mg Carvedilol (Coreg) 6.25 mg PO BID [facility] Last Admin: 02/03/18 09:38 Dose: 6.25 mg Furosemide (Lasix) 80 mg IVP DAILY [facility] Last Admin: 02/03/18 09:38 Dose: 80 mg Heparin Sodium (Porcine) (Heparin) 5,000 units SC Q12 [facility] Last Admin: 02/03/18 09:38 Dose: 5,000 units Hydralazine HCl (Apresoline) 50 mg PO Q8 [facility] Last Admin: 02/03/18 05:14 Dose: 50 mg Meropenem 500 mg/ Sodium (Chloride) 100 mls @ 100 mls/hr IVPB Q12H [facility] PRN Reason: Protocol Last Admin: 02/02/18 22:07 Dose: 100 mls/hr Insulin Aspart (Novolog) 0 unit SC ACHS [facility] PRN Reason: Protocol Last Admin: 02/03/18 07:56 Dose: 2 unit Pantoprazole Sodium (Protonix Ec Tab) 40 mg PO DAILY [facility] Last Admin: 02/03/18 09:38 Dose: 40 mg Tramadol HCl (Ultram) 50 mg PO Q6H PRN PRN Reason: Pain, moderate (4-7) - Labs Labs: 02/03/18 07:20 02/03/18 07:20 PT 13.3 SECONDS (9.7-12.2) H 01/25/18 00:44 INR 1.2 01/25/18 00:44 APTT 33 SECONDS (21-34) 01/25/18 00:44 - Constitutional Appears: No Acute Distress, Chronically Ill - Head Exam Head Exam: ATRAUMATIC, NORMAL INSPECTION - Eye Exam Eye Exam: EOMI - ENT Exam ENT Exam: Mucous Membranes Moist - Neck Exam Neck Exam: Full ROM. absent: Lymphadenopathy - Respiratory Exam Respiratory Exam: Decreased Breath Sounds. absent: Wheezes - GI/Abdominal Exam GI & Abdominal Exam: Soft, Normal Bowel Sounds. absent: Tenderness - Extremities Exam Extremities Exam: Pedal Edema - Neurological Exam Neurological Exam: Alert, Awake Assessment and Plan - Assessment and Plan (Free Text) Assessment: HD today arrange for placement and AVF follow up labs
--- NOTE | 2018-02-03 10:59 | CP.PCM.PN ---
Subjective - Date & Time of Evaluation Date of Evaluation: 02/03/18 Time of Evaluation: 10:55 - Subjective Subjective: Podiatry progress note for attending Dr. Logan 62 yo patient who is 4 1/2 weeks s/p left foot partial hallux amputation seen and evaluated at the bedside. Patient is resting in bed comfortably, patient is AAOx3. Patient is not in acute distress. His Left foot dressing is C/D/I. Patient denies any other pedal complaints at this time. Patient denies N/V/F/C/ SOB/CP/pain on posterior calf since last night. Objective - Vital Signs/Intake and Output Vital Signs (last 24 hours): Temp Pulse Resp BP Pulse Ox 97.8 F 88 20 168/78 H 96 02/03/18 07:28 02/03/18 07:28 02/03/18 07:28 02/03/18 09:38 02/03/18 07:28 Intake and Output: 02/03/18 02/03/18 06:59 18:59 Intake Total 870 Output Total 200 Balance 670 - Medications Medications: Current Medications Acetaminophen (Tylenol 325mg Tab) 650 mg PO Q4 [facility] Last Admin: 01/30/18 16:12 Dose: Not Given Albuterol/Ipratropium (Duoneb 3 Mg/0.5 Mg (3 Ml) Ud) 3 ml INH RQ6 [facility] Last Admin: 02/03/18 08:15 Dose: 3 ml Amlodipine Besylate (Norvasc) 10 mg PO DAILY [facility] Last Admin: 02/03/18 09:38 Dose: 10 mg Carvedilol (Coreg) 6.25 mg PO BID [facility] Last Admin: 02/03/18 09:38 Dose: 6.25 mg Furosemide (Lasix) 80 mg IVP DAILY [facility] Last Admin: 02/03/18 09:38 Dose: 80 mg Heparin Sodium (Porcine) (Heparin) 5,000 units SC Q12 [facility] Last Admin: 02/03/18 09:38 Dose: 5,000 units Hydralazine HCl (Apresoline) 50 mg PO Q8 [facility] Last Admin: 02/03/18 05:14 Dose: 50 mg Meropenem 500 mg/ Sodium (Chloride) 100 mls @ 100 mls/hr IVPB Q12H [facility] PRN Reason: Protocol Last Admin: 02/02/18 22:07 Dose: 100 mls/hr Insulin Aspart (Novolog) 0 unit SC ACHS [facility] PRN Reason: Protocol Last Admin: 02/03/18 07:56 Dose: 2 unit Pantoprazole Sodium (Protonix Ec Tab) 40 mg PO DAILY [facility] Last Admin: 02/03/18 09:38 Dose: 40 mg Tramadol HCl (Ultram) 50 mg PO Q6H PRN PRN Reason: Pain, moderate (4-7) - Labs Labs: 02/03/18 07:20 02/03/18 07:20 PT 13.3 SECONDS (9.7-12.2) H 01/25/18 00:44 INR 1.2 01/25/18 00:44 APTT 33 SECONDS (21-34) 01/25/18 00:44 - Constitutional Appears: Non-toxic, No Acute Distress - Head Exam Head Exam: ATRAUMATIC, NORMOCEPHALIC - Extremities Exam Additional comments: Left LE focused exam Vasc: DP/PT pulses non-palpable, Cap refill delayed > 3 sec in all digits, Temp gradient warm to cool. No edema. Neuro: Gross and protective sensation intact. Derm: Surgical incision site appears clean, dry, well coapted, no sutures remain , there is no evidence of wound dehiscence, no malodor, no drainage, No clinical signs of active bacterial infection noted. Ortho: No pain on palpation at the surgical site. Partially amputated L hallux is noted. 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 Logan Labs and vitals reviewed; WBC 10.1 (02/03/2018) Left hallux dressed using betaine, DSD and kerlix Patient tolerated the dressing change well with no complaints. Patient is stable from podiatry standpoint Podiatry will continue to follow in house.
[2018-02-03] MEDS: Meropenem 500 MG in Sodium Chloride 0.9% 100 ML IVPB SCH (12:17)
--- NOTE | 2018-02-03 19:03 | CP.PCM.PN ---
Subjective - Date & Time of Evaluation Date of Evaluation: 02/03/18 Time of Evaluation: 08:30 - Subjective Subjective: clinically same Objective - Vital Signs/Intake and Output Vital Signs (last 24 hours): Temp Pulse Resp BP Pulse Ox 98.9 F 80 20 166/88 H 98 02/03/18 18:20 02/03/18 18:58 02/03/18 18:20 02/03/18 18:20 02/03/18 18:20 Intake and Output: 02/03/18 02/04/18 18:59 06:59 Intake Total 580 Balance 580 - Medications Medications: Current Medications Acetaminophen (Tylenol 325mg Tab) 650 mg PO Q4 [facility] Last Admin: 01/30/18 16:12 Dose: Not Given Albuterol/Ipratropium (Duoneb 3 Mg/0.5 Mg (3 Ml) Ud) 3 ml INH RQ6 [facility] Last Admin: 02/03/18 13:30 Dose: 3 ml Amlodipine Besylate (Norvasc) 10 mg PO DAILY [facility] Last Admin: 02/03/18 09:38 Dose: 10 mg Carvedilol (Coreg) 6.25 mg PO BID [facility] Last Admin: 02/03/18 18:24 Dose: 6.25 mg Furosemide (Lasix) 80 mg IVP DAILY [facility] Last Admin: 02/03/18 09:38 Dose: 80 mg Heparin Sodium (Porcine) (Heparin) 5,000 units SC Q12 [facility] Last Admin: 02/03/18 09:38 Dose: 5,000 units Hydralazine HCl (Apresoline) 50 mg PO Q8 [facility] Last Admin: 02/03/18 05:14 Dose: 50 mg Tigecycline 50 mg/ Sodium (Chloride) 100 mls @ 100 mls/hr IVPB Q12H [facility] PRN Reason: Protocol Insulin Aspart (Novolog) 0 unit SC ACHS DIA PRN Reason: Protocol Last Admin: 02/03/18 17:31 Dose: Not Given Pantoprazole Sodium (Protonix Ec Tab) 40 mg PO DAILY [facility] Last Admin: 02/03/18 09:38 Dose: 40 mg Tramadol HCl (Ultram) 50 mg PO Q6H PRN PRN Reason: Pain, moderate (4-7) - Labs Labs: 02/03/18 07:20 02/03/18 07:20 PT 13.3 SECONDS (9.7-12.2) H 01/25/18 00:44 INR 1.2 01/25/18 00:44 APTT 33 SECONDS (21-34) 01/25/18 00:44 - Constitutional Appears: Well - Head Exam Head Exam: ATRAUMATIC, NORMAL INSPECTION, NORMOCEPHALIC - Eye Exam Eye Exam: EOMI, Normal appearance, PERRL Pupil Exam: NORMAL ACCOMODATION, PERRL - ENT Exam ENT Exam: Mucous Membranes Moist, Normal Exam - Neck Exam Neck Exam: Full ROM, Normal Inspection. absent: Lymphadenopathy - Respiratory Exam Respiratory Exam: Decreased Breath Sounds - Cardiovascular Exam Cardiovascular Exam: REGULAR RHYTHM, +S1, +S2 - GI/Abdominal Exam GI & Abdominal Exam: Soft, Diminished Bowel Sounds - Rectal Exam Rectal Exam: Deferred
[2018-02-04] MEDS: Albuterol-Ipratrop 3 mg / 0.5 (3 ml) UD INH SCH ×3 (01:26→20:34)
[2018-02-04] MEDS: (Novolog) Insulin Aspart, Recombinant 100 u/ml 10 ml vial SC SCH ×4 (07:30→21:16)
[2018-02-04 08:26] LABS: BASO # 0.2 K/uL (0.0-0.2); BASO % 1.5 % (0.0-2.0); EOS % 9.6 % (0.0-4.0); HEMOGLOBIN 8.5 g/dL (12.0-18.0); LYMPH # 1.4 K/uL (1.0-4.3); LYMPH % 14.3 % (20.0-40.0); MEAN CELL VOLUME 86.8 fL (80.0-94.0); MEAN CORPUSCULAR HEMOGLOBIN 30.3 pg (27.0-31.0); MEAN CORPUSCULAR HGB CONC 34.9 g/dL (33.0-37.0); MONO # 1.1 K/uL (0.0-0.8); MONO % 11.2 % (0.0-10.0); NEUT # 6.4 K/uL (1.8-7.0); NEUT % 63.4 % (50.0-75.0); NRBC % 0.1 % (0.0-2.0); RBC 2.82 Mil/uL (4.40-5.90); WHITE BLOOD COUNT 10.1 K/uL (4.8-10.8)
--- NOTE | 2018-02-04 08:41 | CP.PCM.PN ---
Subjective - Date & Time of Evaluation Date of Evaluation: 02/04/18 Time of Evaluation: 08:36 - Subjective Subjective: Podiatry Progress Note - Dr. Logan 62 y/o patient who is 4 1/2 weeks s/p left foot partial hallux amputation seen and evaluated at bedside. Patient is resting in bed comfortably, patient is AAOx3 and in NAD. Left foot dressing is C/D/I. Patient denies any other pedal complaints at this time. Patient denies N/V/F/C/SOB/CP/pain on posterior calf since last night. Objective - Vital Signs/Intake and Output Vital Signs (last 24 hours): Temp Pulse Resp BP Pulse Ox 99.2 F 86 20 169/75 H 96 02/04/18 07:00 02/04/18 07:00 02/04/18 07:00 02/04/18 07:00 02/04/18 07:00 Intake and Output: 02/04/18 02/04/18 06:59 18:59 Intake Total 600 Balance 600 - Medications Medications: Current Medications Acetaminophen (Tylenol 325mg Tab) 650 mg PO Q4 [facility] Last Admin: 01/30/18 16:12 Dose: Not Given Albuterol/Ipratropium (Duoneb 3 Mg/0.5 Mg (3 Ml) Ud) 3 ml INH RQ6 [facility] Last Admin: 02/04/18 07:49 Dose: 3 ml Amlodipine Besylate (Norvasc) 10 mg PO DAILY [facility] Last Admin: 02/03/18 09:38 Dose: 10 mg Carvedilol (Coreg) 6.25 mg PO BID [facility] Last Admin: 02/03/18 18:24 Dose: 6.25 mg Furosemide (Lasix) 80 mg IVP DAILY [facility] Last Admin: 02/03/18 09:38 Dose: 80 mg Heparin Sodium (Porcine) (Heparin) 5,000 units SC Q12 [facility] Last Admin: 02/03/18 21:24 Dose: 5,000 units Hydralazine HCl (Apresoline) 50 mg PO Q8 [facility] Last Admin: 02/04/18 05:10 Dose: 50 mg Tigecycline 50 mg/ Sodium (Chloride) 100 mls @ 100 mls/hr IVPB Q12H [facility] PRN Reason: Protocol Last Admin: 02/04/18 04:08 Dose: 100 mls/hr Insulin Aspart (Novolog) 0 unit SC ACHS [facility] PRN Reason: Protocol Last Admin: 02/03/18 21:24 Dose: Not Given Pantoprazole Sodium (Protonix Ec Tab) 40 mg PO DAILY [facility] Last Admin: 02/03/18 09:38 Dose: 40 mg Tramadol HCl (Ultram) 50 mg PO Q6H PRN PRN Reason: Pain, moderate (4-7) - Labs Labs: 02/04/18 07:50 02/03/18 07:20 PT 13.3 SECONDS (9.7-12.2) H 01/25/18 00:44 INR 1.2 01/25/18 00:44 APTT 33 SECONDS (21-34) 01/25/18 00:44 - Constitutional Appears: Well, Non-toxic, No Acute Distress - Extremities Exam Additional comments: Left LE focused exam: Vasc: DP/PT pulses non-palpable, Cap refill delayed > 3 sec in all digits, Temp gradient warm to cool. No edema. Neuro: Gross and protective sensation intact. Derm: Surgical incision site appears clean, dry, well coapted, no sutures remain , there is no evidence of wound dehiscence, no malodor, no drainage, No clinical signs of active bacterial infection noted. Ortho: No pain on palpation at the surgical site. Partially amputated L hallux is noted. 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 Logan Left hallux dressed using betadine, DSD and kerlix Patient is stable from podiatry standpoint Podiatry will continue to follow in house
[2018-02-04 08:42] LABS: ALBUMIN 3.3 g/dL (3.5-5.0); CALCIUM 7.5 mg/dl (8.6-10.4)
[2018-02-04] MEDS: Pantoprazole 40 mg EC Tab PO SCH (09:11)
[2018-02-04] MEDS: Meropenem 500 MG in Sodium Chloride 0.9% 100 ML IVPB SCH (14:00)
--- NOTE | 2018-02-04 15:33 | CP.PCM.PN ---
Subjective - Date & Time of Evaluation Date of Evaluation: 02/04/18 Time of Evaluation: 08:30 - Subjective Subjective: clinically same Objective - Vital Signs/Intake and Output Vital Signs (last 24 hours): Temp Pulse Resp BP Pulse Ox 98.7 F 72 20 138/74 100 02/04/18 15:00 02/04/18 15:00 02/04/18 15:00 02/04/18 15:00 02/04/18 15:00 Intake and Output: 02/04/18 02/04/18 06:59 18:59 Intake Total 600 Balance 600 - Medications Medications: Current Medications Acetaminophen (Tylenol 325mg Tab) 650 mg PO Q4 [facility] Last Admin: 01/30/18 16:12 Dose: Not Given Albuterol/Ipratropium (Duoneb 3 Mg/0.5 Mg (3 Ml) Ud) 3 ml INH RQ6 [facility] Last Admin: 02/04/18 07:49 Dose: 3 ml Amlodipine Besylate (Norvasc) 10 mg PO DAILY [facility] Last Admin: 02/04/18 09:11 Dose: 10 mg Carvedilol (Coreg) 6.25 mg PO BID [facility] Last Admin: 02/04/18 09:11 Dose: 6.25 mg Furosemide (Lasix) 80 mg IVP DAILY [facility] Last Admin: 02/04/18 09:11 Dose: 80 mg Heparin Sodium (Porcine) (Heparin) 5,000 units SC Q12 [facility] Last Admin: 02/04/18 09:11 Dose: 5,000 units Hydralazine HCl (Apresoline) 50 mg PO Q8 [facility] Last Admin: 02/04/18 13:30 Dose: 50 mg Tigecycline 50 mg/ Sodium (Chloride) 100 mls @ 100 mls/hr IVPB Q12H [facility] PRN Reason: Protocol Last Admin: 02/04/18 04:08 Dose: 100 mls/hr Meropenem 500 mg/ Sodium (Chloride) 100 mls @ 100 mls/hr IVPB Q12H [facility]IA PRN Reason: Protocol Last Admin: 02/04/18 14:00 Dose: 100 mls/hr Insulin Aspart (Novolog) 0 unit SC ACHS DIA PRN Reason: Protocol Last Admin: 02/04/18 11:59 Dose: 3 unit Pantoprazole Sodium (Protonix Ec Tab) 40 mg PO DAILY [facility] Last Admin: 02/04/18 09:11 Dose: 40 mg Tramadol HCl (Ultram) 50 mg PO Q6H PRN PRN Reason: Pain, moderate (4-7) - Labs Labs: 02/04/18 07:50 02/04/18 07:50 PT 13.3 SECONDS (9.7-12.2) H 01/25/18 00:44 INR 1.2 01/25/18 00:44 APTT 33 SECONDS (21-34) 01/25/18 00:44 - Constitutional Appears: Well - Head Exam Head Exam: ATRAUMATIC, NORMAL INSPECTION, NORMOCEPHALIC - Eye Exam Eye Exam: EOMI, Normal appearance, PERRL Pupil Exam: NORMAL ACCOMODATION, PERRL - ENT Exam ENT Exam: Mucous Membranes Moist, Normal Exam - Neck Exam Neck Exam: Full ROM, Normal Inspection. absent: Lymphadenopathy - Respiratory Exam Respiratory Exam: Decreased Breath Sounds - Cardiovascular Exam Cardiovascular Exam: REGULAR RHYTHM, +S1, +S2 - GI/Abdominal Exam GI & Abdominal Exam: Soft, Diminished Bowel Sounds - Rectal Exam Rectal Exam: Deferred
[2018-02-05] MEDS: Meropenem 500 MG in Sodium Chloride 0.9% 100 ML IVPB SCH ×2 (01:08→13:52)
[2018-02-05 06:28] LABS: BASO # 0.2 K/uL (0.0-0.2); BASO % 1.9 % (0.0-2.0); EOS # 1.2 K/uL (0.0-0.7); EOS % 11.9 % (0.0-4.0); HEMOGLOBIN 8.3 g/dL (12.0-18.0); LYMPH # 1.2 K/uL (1.0-4.3); LYMPH % 12.2 % (20.0-40.0); MEAN CORPUSCULAR HEMOGLOBIN 30.1 pg (27.0-31.0); MEAN CORPUSCULAR HGB CONC 35.4 g/dL (33.0-37.0); MEAN PLATELET VOLUME 6.9 fL (7.2-11.7); MONO # 1.3 K/uL (0.0-0.8); MONO % 13.6 % (0.0-10.0); NEUT # 5.9 K/uL (1.8-7.0); NEUT % 60.4 % (50.0-75.0); RBC 2.76 Mil/uL (4.40-5.90); RED CELL DISTRIBUTION WIDTH 14.3 % (11.5-14.5); WHITE BLOOD COUNT 9.8 K/uL (4.8-10.8)
[2018-02-05 06:54] LABS: CALCIUM 7.1 mg/dl (8.6-10.4)
[2018-02-05] MEDS: (Novolog) Insulin Aspart, Recombinant 100 u/ml 10 ml vial SC SCH ×5 (07:30→22:50)
[2018-02-05] MEDS: Albuterol-Ipratrop 3 mg / 0.5 (3 ml) UD INH SCH ×4 (08:05→19:26)
[2018-02-05] MEDS: Pantoprazole 40 mg EC Tab PO SCH (09:49)
--- NOTE | 2018-02-05 11:50 | CP.PCM.PN ---
Subjective - Date & Time of Evaluation Date of Evaluation: 02/05/18 Time of Evaluation: 11:48 - Subjective Subjective: Podiatry Progress Note - Dr. Logan 62 year old male patient who is 4 1/2 weeks s/p left foot partial hallux amputation seen and evaluated at bedside. Family member at bedside. Patient is resting in bed comfortably, patient is AAOx3 and in NAD. No dressing present at the time of the visit. Patient denies any other pedal complaints at this time. Patient denies N/V/F/C/SOB/CP/pain on posterior calf since last night. Objective - Vital Signs/Intake and Output Vital Signs (last 24 hours): Temp Pulse Resp BP Pulse Ox 98.2 F 75 20 171/79 H 97 02/05/18 07:00 02/05/18 07:00 02/05/18 07:00 02/05/18 09:50 02/05/18 07:00 Intake and Output: 02/05/18 02/05/18 06:59 18:59 Intake Total 600 Balance 600 - Medications Medications: Current Medications Acetaminophen (Tylenol 325mg Tab) 650 mg PO Q4 [facility] Last Admin: 01/30/18 16:12 Dose: Not Given Albuterol/Ipratropium (Duoneb 3 Mg/0.5 Mg (3 Ml) Ud) 3 ml INH RQ6 [facility] Last Admin: 02/05/18 08:06 Dose: 3 ml Amlodipine Besylate (Norvasc) 10 mg PO DAILY [facility] Last Admin: 02/05/18 09:49 Dose: 10 mg Carvedilol (Coreg) 6.25 mg PO BID [facility] Last Admin: 02/05/18 09:49 Dose: 6.25 mg Furosemide (Lasix) 80 mg IVP DAILY [facility] Last Admin: 02/05/18 09:50 Dose: 80 mg Heparin Sodium (Porcine) (Heparin) 5,000 units SC Q12 [facility] Last Admin: 02/05/18 09:49 Dose: 5,000 units Hydralazine HCl (Apresoline) 50 mg PO Q8 [facility] Last Admin: 02/05/18 05:19 Dose: 50 mg Tigecycline 50 mg/ Sodium (Chloride) 100 mls @ 100 mls/hr IVPB Q12H [facility] PRN Reason: Protocol Last Admin: 02/05/18 04:09 Dose: 100 mls/hr Meropenem 500 mg/ Sodium (Chloride) 100 mls @ 100 mls/hr IVPB Q12H [facility] PRN Reason: Protocol Last Admin: 02/05/18 01:08 Dose: 100 mls/hr Insulin Aspart (Novolog) 0 unit SC ACHS [facility]IA PRN Reason: Protocol Last Admin: 02/05/18 07:30 Dose: Not Given Pantoprazole Sodium (Protonix Ec Tab) 40 mg PO DAILY [facility] Last Admin: 02/05/18 09:49 Dose: 40 mg Tramadol HCl (Ultram) 50 mg PO Q6H PRN PRN Reason: Pain, moderate (4-7) - Labs Labs: 02/05/18 06:21 02/05/18 06:21 PT 13.3 SECONDS (9.7-12.2) H 01/25/18 00:44 INR 1.2 01/25/18 00:44 APTT 33 SECONDS (21-34) 01/25/18 00:44 - Constitutional Appears: Well, Non-toxic, No Acute Distress - Extremities Exam Additional comments: Left LE focused exam: Vasc: DP/PT pulses non-palpable, Cap refill delayed > 3 sec in all digits, Temp gradient warm to cool. No edema. Neuro: Gross and protective sensation intact. Derm: Surgical incision site appears clean, dry, well coapted, no sutures remain , there is no evidence of wound dehiscence, no malodor, no drainage, No clinical signs of active bacterial infection noted. Ortho: No pain on palpation at the surgical site. Partially amputated L hallux is noted. 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 Logan Left hallux dressed using betadine, DSD and kerlix Patient is stable from podiatry standpoint Podiatry will continue to follow in house
--- NOTE | 2018-02-05 11:57 | CP.PCM.PN ---
Subjective - Date & Time of Evaluation Date of Evaluation: 02/05/18 Time of Evaluation: 11:54 - Subjective Subjective: stable dialysis 02/03 less dyspneic, less swollen Hg still low tolerating HD well foot wound bandaged no n, v, f, chills, diarrhea Objective - Vital Signs/Intake and Output Vital Signs (last 24 hours): Temp Pulse Resp BP Pulse Ox 98.2 F 75 20 171/79 H 97 02/05/18 07:00 02/05/18 07:00 02/05/18 07:00 02/05/18 09:50 02/05/18 07:00 Intake and Output: 02/05/18 02/05/18 06:59 18:59 Intake Total 600 Balance 600 - Medications Medications: Current Medications Acetaminophen (Tylenol 325mg Tab) 650 mg PO Q4 [facility] Last Admin: 01/30/18 16:12 Dose: Not Given Albuterol/Ipratropium (Duoneb 3 Mg/0.5 Mg (3 Ml) Ud) 3 ml INH RQ6 [facility] Last Admin: 02/05/18 08:06 Dose: 3 ml Amlodipine Besylate (Norvasc) 10 mg PO DAILY [facility] Last Admin: 02/05/18 09:49 Dose: 10 mg Carvedilol (Coreg) 6.25 mg PO BID [facility] Last Admin: 02/05/18 09:49 Dose: 6.25 mg Furosemide (Lasix) 80 mg IVP DAILY [facility] Last Admin: 02/05/18 09:50 Dose: 80 mg Heparin Sodium (Porcine) (Heparin) 5,000 units SC Q12 [facility] Last Admin: 02/05/18 09:49 Dose: 5,000 units Hydralazine HCl (Apresoline) 50 mg PO Q8 [facility] Last Admin: 02/05/18 05:19 Dose: 50 mg Tigecycline 50 mg/ Sodium (Chloride) 100 mls @ 100 mls/hr IVPB Q12H [facility] PRN Reason: Protocol Last Admin: 02/05/18 04:09 Dose: 100 mls/hr Meropenem 500 mg/ Sodium (Chloride) 100 mls @ 100 mls/hr IVPB Q12H [facility] PRN Reason: Protocol Last Admin: 02/05/18 01:08 Dose: 100 mls/hr Insulin Aspart (Novolog) 0 unit SC ACHS [facility]IA PRN Reason: Protocol Last Admin: 02/05/18 07:30 Dose: Not Given Pantoprazole Sodium (Protonix Ec Tab) 40 mg PO DAILY [facility] Last Admin: 02/05/18 09:49 Dose: 40 mg Tramadol HCl (Ultram) 50 mg PO Q6H PRN PRN Reason: Pain, moderate (4-7) - Labs Labs: 02/05/18 06:21 02/05/18 06:21 PT 13.3 SECONDS (9.7-12.2) H 01/25/18 00:44 INR 1.2 01/25/18 00:44 APTT 33 SECONDS (21-34) 01/25/18 00:44 - Constitutional Appears: No Acute Distress, Chronically Ill - Head Exam Head Exam: NORMAL INSPECTION - Eye Exam Eye Exam: EOMI, Normal appearance - Neck Exam Neck Exam: Normal Inspection. absent: Tenderness - Respiratory Exam Respiratory Exam: Clear to Ausculation Bilateral, NORMAL BREATHING PATTERN - Cardiovascular Exam Cardiovascular Exam: REGULAR RHYTHM, +S1 - GI/Abdominal Exam GI & Abdominal Exam: Soft. absent: Tenderness - Extremities Exam Extremities Exam: Pedal Edema. absent: Tenderness - Neurological Exam Neurological Exam: Alert, CN II-XII Intact - Skin Skin Exam: Dry, Warm Assessment and Plan (1) MANDY (acute kidney injury) Status: Acute (2) Type 2 diabetes mellitus with diabetic nephropathy Status: Acute (3) Fever Status: Acute (4) Diabetes 1.5, managed as type 2 Status: Acute (5) Nonhealing ulcer of left lower extremity Status: Acute (6) CHF (congestive heart failure) Status: Acute (7) ESRD (end stage renal disease) Status: Acute - Assessment and Plan (Free Text) Plan: start ESAs check iron stores HD TTS Adequate UF Consider AV A foot care, IV ABs
--- NOTE | 2018-02-05 16:00 | CP.PCM.PN ---
Subjective - Date & Time of Evaluation Date of Evaluation: 02/05/18 Time of Evaluation: 09:50 - Subjective Subjective: PGY2 Medicine Note for Dr. Earnestine Deluna Patient seen and examined at bedside this morning. Patient reports that he had a normal bowel movement this morning. He was experiencing some gas pains but felt relief after the BM. He is currently resting in bed without pain. He notes that itching and redness on his LE b/l that started last night. He has no other complaints at this time. Denies fevers, chills, nausea, vomiting, diarrhea, constipation, chest pain, palpitations, shortness of breath, abdominal pain. Objective - Vital Signs/Intake and Output Vital Signs (last 24 hours): Temp Pulse Resp BP Pulse Ox 97.8 F 70 20 137/69 100 02/05/18 13:48 02/05/18 13:48 02/05/18 13:48 02/05/18 13:48 02/05/18 13:48 Intake and Output: 02/05/18 02/05/18 06:59 18:59 Intake Total 600 580 Balance 600 580 - Medications Medications: Current Medications Acetaminophen (Tylenol 325mg Tab) 650 mg PO Q4 [facility] Last Admin: 01/30/18 16:12 Dose: Not Given Albuterol/Ipratropium (Duoneb 3 Mg/0.5 Mg (3 Ml) Ud) 3 ml INH RQ6 [facility] Last Admin: 02/05/18 13:24 Dose: 3 ml Amlodipine Besylate (Norvasc) 10 mg PO DAILY [facility] Last Admin: 02/05/18 09:49 Dose: 10 mg Carvedilol (Coreg) 12.5 mg PO BID [facility]CLUD[facility] Epoetin Alexandr (Procrit) 10,000 unit IV TTS [facility]CLUD[facility] Heparin Sodium (Porcine) (Heparin) 5,000 units SC Q12 [facility] Last Admin: 02/05/18 09:49 Dose: 5,000 units Hydralazine HCl (Apresoline) 50 mg PO Q8 [facility] Last Admin: 02/05/18 13:48 Dose: 50 mg Tigecycline 50 mg/ Sodium (Chloride) 100 mls @ 100 mls/hr IVPB Q12H [facility] PRN Reason: Protocol Last Admin: 02/05/18 04:09 Dose: 100 mls/hr Meropenem 500 mg/ Sodium (Chloride) 100 mls @ 100 mls/hr IVPB Q12H [facility] PRN Reason: Protocol Last Admin: 02/05/18 13:52 Dose: 100 mls/hr Insulin Aspart (Novolog) 0 unit SC ACHS [facility] PRN Reason: Protocol Last Admin: 02/05/18 12:43 Dose: 4 unit Pantoprazole Sodium (Protonix Ec Tab) 40 mg PO DAILY [facility] Last Admin: 02/05/18 09:49 Dose: 40 mg Tramadol HCl (Ultram) 50 mg PO Q6H PRN PRN Reason: Pain, moderate (4-7) - Labs Labs: 02/05/18 06:21 02/05/18 06:21 PT 13.3 SECONDS (9.7-12.2) H 01/25/18 00:44 INR 1.2 01/25/18 00:44 APTT 33 SECONDS (21-34) 01/25/18 00:44 - Constitutional Appears: No Acute Distress, Chronically Ill - Head Exam Head Exam: ATRAUMATIC - Eye Exam Eye Exam: EOMI - ENT Exam ENT Exam: Mucous Membranes Moist - Neck Exam Additional comments: Right chest permacath - Respiratory Exam Respiratory Exam: Decreased Breath Sounds, NORMAL BREATHING PATTERN. absent: Accessory Muscle Use, Rales, Rhonchi, Wheezes, Respiratory Distress - Cardiovascular Exam Cardiovascular Exam: REGULAR RHYTHM, +S1, +S2 - GI/Abdominal Exam GI & Abdominal Exam: Soft, Normal Bowel Sounds. absent: Distended (patient reports decreased abdomen compared to yesterday), Firm, Guarding, Rigid, Tenderness - Extremities Exam Extremities Exam: Pedal Edema. 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 Zyvox and Aztreonem discontinued on per ID Follow up MRI to r/o osteomyelitis 02/01: patient febrile overnight again, Tmax 101 WBC 9.5 antibiotic regimen adjusted by Dr. Blancas: aztreonam 1g q24, vancomycin added on dialysis days (MWF), meropenem q12 IVPB repeat blood culture ordered as well as stool for ova and parasite due to eosinophilia 01/31: Febrile overnight at 102.6F. Started Aztreonam 1Gm IVPB q24H. Currently on: Aztreonam 1Gm IVPB q24H (started 01/30) Zyvox 600mg PO BID (started 01/29) Meropenem 500mg IVPB Q12 (started 01/30) L foot xray 01/31- negative CT chest/abd/pelv 01/30- Bilateral pleural effusion with lower lobe subsegmental atelectasis. Chronic pancreatitis. Mildly dilated main pulmonary artery. Correlate for any history of pulmonary arterial hypertension. Thickened bladder wall. Possible artifact due to outlet obstruction or cystitis. Anasarca. See full report. 01/30: WBC 10.2 today. Last fever on 01/27. Dr. Blancas, ID, consulted- help appreciated SIRS criteria present on admission (01/25): Temperature 101.2F, HR 106 SOFA score approximately 9 (no ABG for PaO2) initial VBG lactate (01/25) 4.1, repeat 1.0 procalcitonin 5.74 suspected possible sources include: line infection from prior PICC line- culture from (01/25) negative bacteremia- blood culture negative after 4 days pneumonia- chest CT negative for infiltrate however patient was dyspneic on admission, sputum culture uncollected urine- (01/25) urine culture negative prior hallux amputation site- recent amputation for osteomyelitis and was on IV abx prior to this admission. Podiatry team, Dr. Logan, consulted- recommendations appreciated patient on antibiotics: Tigecycline 50mg IVPB q12h (started 02/04) Meropenem 500mg IVPB q12h (started 02/04) patient previously on antibiotics: gentamicin 120mg x 1 dose (01/25) vancomycin x 1 dose (01/25) zosyn (01/25- 01/28) zyvox 600mg IVPB 12h (started 01/25) aztreonam 1gam IVPB q8h (started 01/28) medications adjusted due to kidney function MANDY 02/05: stable dialysis, less dyspneic/swollen, HD TTS, consider for possible AV access while inpatient. 02/01: will check 24 hour urine protein per nephrology 01/31: patient s/p permacath placement with Dr. Haro 01/30. Received dialysis late yesterday. Repeat dialysis this afternoon 01/31. Will have HD MWF. Dr. Burger, nephrology, consulted- help appreciated possible etiologies include cardiorenal syndrome, acute allergic interstitial nephritis creatinine rising, today 3.6, was 3.2 on (02/04), creatinine baseline 0.9 end of December 2017/ beginning January 2018 urine protein 50.0 urine eosinophil count pending Bladder US: renal parenchymal disease Dyspnea (resolved) 02/05: ECHO - EF ~65%, large left pleural effusion, otherwise normal ECHO 02/02: patient underwent echo, follow up results 02/01: chest xray with worsening pulmonary vascular congestion, will check echo CT Chest: pulmonary vascular congestion with small to moderate bilateral pleural effusions and subjacent atelectasis (see full report) continue lasix 80mg IVP daily BNP 9070 no echocardiogram in our EMR Transaminitis 02/05: continue downtrending AST 29/ALT 53, Alk Phos 160 02/02: continue downtrending AST/ALT 60/85 today 01/31: downtrending LFTs after stopping Tylenol. Continue Ultram 50mg PO q6H PRN pain. 01/30: AST stable 142. ALT 129 and AlkP 190 uptrending. Stop Tylenol PRN. Start Ultram 50mg PO q6H PRN pain. AST/ ALT/ Alk phos increasing, today 175/ 121/180 T. Bili not elevated at 0.7 hepatitis A & B negative Hepatitis C negative RPR, HIV negative HTN hydralazine 50mg PO Q8h norvasc 10mg PO daily DM ISS Accucheck ACHS A1c 7.0 in 12/2017 holding all PO meds currently due to renal function left hallux amputation site bandaged Left hallux amputation procedure performed on last admission Dr. Logan, podiatry, following while patient in-house Prophylactic measure heparin 5,000unit Q12h (renal dosing) protonix 40mg IVP daily All medical management as per Dr. Deluna
--- NOTE | 2018-02-05 17:17 | CP.PCM.PN ---
Subjective - Date & Time of Evaluation Date of Evaluation: 02/05/18 Time of Evaluation: 08:30 - Subjective Subjective: clinically same Objective - Vital Signs/Intake and Output Vital Signs (last 24 hours): Temp Pulse Resp BP Pulse Ox 98.5 F 68 20 154/73 H 98 02/05/18 15:00 02/05/18 16:29 02/05/18 15:00 02/05/18 17:10 02/05/18 15:00 Intake and Output: 02/05/18 02/05/18 06:59 18:59 Intake Total 600 580 Balance 600 580 - Medications Medications: Current Medications Acetaminophen (Tylenol 325mg Tab) 650 mg PO Q4 [facility] Last Admin: 01/30/18 16:12 Dose: Not Given Albuterol/Ipratropium (Duoneb 3 Mg/0.5 Mg (3 Ml) Ud) 3 ml INH RQ6 [facility] Last Admin: 02/05/18 13:24 Dose: 3 ml Amlodipine Besylate (Norvasc) 10 mg PO DAILY [facility] Last Admin: 02/05/18 09:49 Dose: 10 mg Carvedilol (Coreg) 12.5 mg PO BID [facility] Last Admin: 02/05/18 17:10 Dose: 12.5 mg Epoetin Alexandr (Procrit) 10,000 unit IV TTS [facility] Heparin Sodium (Porcine) (Heparin) 5,000 units SC Q12 [facility] Last Admin: 02/05/18 09:49 Dose: 5,000 units Hydralazine HCl (Apresoline) 50 mg PO Q8 [facility] Last Admin: 02/05/18 13:48 Dose: 50 mg Tigecycline 50 mg/ Sodium (Chloride) 100 mls @ 100 mls/hr IVPB Q12H [facility] PRN Reason: Protocol Last Admin: 02/05/18 15:59 Dose: 100 mls/hr Meropenem 500 mg/ Sodium (Chloride) 100 mls @ 100 mls/hr IVPB Q12H [facility] PRN Reason: Protocol Last Admin: 02/05/18 13:52 Dose: 100 mls/hr Insulin Aspart (Novolog) 0 unit SC ACHS [facility] PRN Reason: Protocol Last Admin: 02/05/18 12:43 Dose: 4 unit Pantoprazole Sodium (Protonix Ec Tab) 40 mg PO DAILY [facility] Last Admin: 02/05/18 09:49 Dose: 40 mg Tramadol HCl (Ultram) 50 mg PO Q6H PRN PRN Reason: Pain, moderate (4-7) - Labs Labs: 02/05/18 06:21 02/05/18 06:21 PT 13.3 SECONDS (9.7-12.2) H 01/25/18 00:44 INR 1.2 01/25/18 00:44 APTT 33 SECONDS (21-34) 01/25/18 00:44 - Constitutional Appears: Well - Head Exam Head Exam: ATRAUMATIC, NORMAL INSPECTION, NORMOCEPHALIC - Eye Exam Eye Exam: EOMI, Normal appearance, PERRL Pupil Exam: NORMAL ACCOMODATION, PERRL - ENT Exam ENT Exam: Mucous Membranes Moist, Normal Exam - Neck Exam Neck Exam: Full ROM, Normal Inspection. absent: Lymphadenopathy - Respiratory Exam Respiratory Exam: Decreased Breath Sounds - Cardiovascular Exam Cardiovascular Exam: REGULAR RHYTHM, +S1, +S2 - GI/Abdominal Exam GI & Abdominal Exam: Soft, Diminished Bowel Sounds - Rectal Exam Rectal Exam: Deferred
--- NOTE | 2018-02-05 18:19 | CP.PCM.PN ---
Subjective - Date & Time of Evaluation Date of Evaluation: 02/05/18 Time of Evaluation: 03:20 - Subjective Subjective: dictated Objective - Vital Signs/Intake and Output Vital Signs (last 24 hours): Temp Pulse Resp BP Pulse Ox 98.5 F 68 20 154/73 H 98 02/05/18 15:00 02/05/18 16:29 02/05/18 15:00 02/05/18 17:10 02/05/18 15:00 Intake and Output: 02/05/18 02/05/18 06:59 18:59 Intake Total 600 580 Balance 600 580 - Medications Medications: Current Medications Acetaminophen (Tylenol 325mg Tab) 650 mg PO Q4 [facility] Last Admin: 01/30/18 16:12 Dose: Not Given Albuterol/Ipratropium (Duoneb 3 Mg/0.5 Mg (3 Ml) Ud) 3 ml INH RQ6 [facility] Last Admin: 02/05/18 13:24 Dose: 3 ml Amlodipine Besylate (Norvasc) 10 mg PO DAILY [facility] Last Admin: 02/05/18 09:49 Dose: 10 mg Carvedilol (Coreg) 12.5 mg PO BID [facility] Last Admin: 02/05/18 17:10 Dose: 12.5 mg Epoetin Alexandr (Procrit) 10,000 unit IV TTS [facility] Heparin Sodium (Porcine) (Heparin) 5,000 units SC Q12 [facility] Last Admin: 02/05/18 09:49 Dose: 5,000 units Hydralazine HCl (Apresoline) 50 mg PO Q8 [facility] Last Admin: 02/05/18 13:48 Dose: 50 mg Tigecycline 50 mg/ Sodium (Chloride) 100 mls @ 100 mls/hr IVPB Q12H [facility] PRN Reason: Protocol Last Admin: 02/05/18 15:59 Dose: 100 mls/hr Meropenem 500 mg/ Sodium (Chloride) 100 mls @ 100 mls/hr IVPB Q12H [facility] PRN Reason: Protocol Last Admin: 02/05/18 13:52 Dose: 100 mls/hr Insulin Aspart (Novolog) 0 unit SC ACHS [facility] PRN Reason: Protocol Last Admin: 02/05/18 17:12 Dose: 2 unit Pantoprazole Sodium (Protonix Ec Tab) 40 mg PO DAILY [facility] Last Admin: 07/02/18 09:49 Dose: 40 mg Tramadol HCl (Ultram) 50 mg PO Q6H PRN PRN Reason: Pain, moderate (4-7) - Labs Labs: 02/05/18 06:21 02/05/18 06:21 PT 13.3 SECONDS (9.7-12.2) H 01/25/18 00:44 INR 1.2 01/25/18 00:44 APTT 33 SECONDS (21-34) 01/25/18 00:44
--- NOTE | 2018-02-05 18:46 | CP.PCM.PN ---
Subjective - Date & Time of Evaluation Date of Evaluation: 02/05/18 Time of Evaluation: 18:43 - Subjective Subjective: Surgery: Dr. Haro Pt seen and examined. Resting comfortably in bed. No acute events overnight. Objective - Vital Signs/Intake and Output Vital Signs (last 24 hours): Temp Pulse Resp BP Pulse Ox 98.5 F 68 20 154/73 H 98 02/05/18 15:00 02/05/18 16:29 02/05/18 15:00 02/05/18 17:10 02/05/18 15:00 Intake and Output: 02/05/18 02/05/18 06:59 18:59 Intake Total 600 580 Balance 600 580 - Medications Medications: Current Medications Acetaminophen (Tylenol 325mg Tab) 650 mg PO Q4 [facility] Last Admin: 01/30/18 16:12 Dose: Not Given Albuterol/Ipratropium (Duoneb 3 Mg/0.5 Mg (3 Ml) Ud) 3 ml INH RQ6 [facility] Last Admin: 02/05/18 13:24 Dose: 3 ml Amlodipine Besylate (Norvasc) 10 mg PO DAILY [facility] Last Admin: 02/05/18 09:49 Dose: 10 mg Carvedilol (Coreg) 12.5 mg PO BID [facility] Last Admin: 02/05/18 17:10 Dose: 12.5 mg Epoetin Alexandr (Procrit) 10,000 unit IV TTS [facility] Heparin Sodium (Porcine) (Heparin) 5,000 units SC Q12 [facility] Last Admin: 02/05/18 09:49 Dose: 5,000 units Hydralazine HCl (Apresoline) 50 mg PO Q8 [facility] Last Admin: 02/05/18 13:48 Dose: 50 mg Tigecycline 50 mg/ Sodium (Chloride) 100 mls @ 100 mls/hr IVPB Q12H [facility] PRN Reason: Protocol Last Admin: 02/05/18 15:59 Dose: 100 mls/hr Meropenem 500 mg/ Sodium (Chloride) 100 mls @ 100 mls/hr IVPB Q12H [facility] PRN Reason: Protocol Last Admin: 02/05/18 13:52 Dose: 100 mls/hr Insulin Aspart (Novolog) 0 unit SC ACHS [facility] PRN Reason: Protocol Last Admin: 02/05/18 17:12 Dose: 2 unit Pantoprazole Sodium (Protonix Ec Tab) 40 mg PO DAILY [facility] Last Admin: 02/05/18 09:49 Dose: 40 mg Tramadol HCl (Ultram) 50 mg PO Q6H PRN PRN Reason: Pain, moderate (4-7) - Labs Labs: 02/05/18 06:21 02/05/18 06:21 PT 13.3 SECONDS (9.7-12.2) H 01/25/18 00:44 INR 1.2 01/25/18 00:44 APTT 33 SECONDS (21-34) 01/25/18 00:44 - Constitutional Appears: Non-toxic, No Acute Distress - Head Exam Head Exam: ATRAUMATIC, NORMOCEPHALIC - Eye Exam Eye Exam: EOMI - ENT Exam ENT Exam: Mucous Membranes Moist - Neck Exam Neck Exam: Full ROM, Normal Inspection - Respiratory Exam Respiratory Exam: NORMAL BREATHING PATTERN. absent: Accessory Muscle Use, Respiratory Distress - GI/Abdominal Exam GI & Abdominal Exam: Soft. absent: Distended, Firm, Guarding, Rigid, Tenderness - Neurological Exam Neurological Exam: Alert, Awake - Psychiatric Exam Psychiatric exam: Normal Affect, Normal Mood - Skin Skin Exam: Dry, Normal Color, Warm Assessment and Plan - Assessment and Plan (Free Text) Assessment: 62M w. ESRD -OR tomorrow for AVF -NPO at midnight -Consent in chart -d/w attending Zemaitis PGY4
[2018-02-05] MEDS ORDERED: Epoetin Alfa 10,000 unit/ml Dialysis IV ONE (21:00)
--- NOTE | 2018-02-06 00:20 | PN ---
DATE: 02/05/2018 SUBJECTIVE: The patient had fever last night. He does not complain much. He is complaining of itching in the lower extremities, but this has been going on since the time he developed cellulitis. Initially, I thought it was to Zyvox because he was on Zyvox which I discontinued, and then we had put on vancomycin, but it seems may be the vancomycin may have caused it, and now he is on Tygacil and Merrem, and I took away Merrem once for a day, and he spiked again fever. Hence, it is unclear why he is having fevers. He also used to have an abscess in the perineal area, and I today looked those site over and that perineal abscess has healed, and there is no other sores except for itching and cellulitis of lower extremities. He still has edema. He says he is having good bowel movements, and he has no urinary complaints. PHYSICAL EXAMINATION: VITAL SIGNS: T-max is 98.2, pulse 75, blood pressure 157/74, respirations are 20. HEENT: Head is atraumatic, normocephalic. NECK: Supple. LUNGS: Clear. Decreased breath sounds on the bases. HEART: S1, S2 are regular. ABDOMEN: Soft, nontender. No guarding, no rigidity present. EXTREMITIES: Left great toe has a dressing. Have some redness and skin flaking, and it may be related to, I would think to vancomycin. LABORATORY DATA: White count is 9.8, hemoglobin 8.3, hematocrit 23.5, platelet count is 282, neutrophils is 60.4, eosinophils are still 11.9. Sodium is 131, potassium 4.5, chlorides are 97, CO2 is 25, BUN is 38, and creatinine is 3.6. He is on dialysis for now. At this time, I want to do a Ceretec scan to rule out any other etiology of fevers, and if it is negative, I would discontinue antibiotics and put him on some oral antibiotic and see if these kidney functions are better. He is on dialysis at this time. He is diabetic. He is status post osteomyelitis and amputation of the distal partial phalanx and still remains febrile off and on, causes could be cellulitis of the extremities, could be allergic rash which cause cellulitis. PICC line was removed, and he has his new dialysis catheter. We also spoke to the animal trapper who says that she does not think that osteomyelitis is persisting, and his white count remains normal with eosinophilia which is suggesting this allergy too, but I will continue Merrem and Tygacil, pending Ceretec scan and cellulitis. Tiffany Blancas MD
[2018-02-06] MEDS: Albuterol-Ipratrop 3 mg / 0.5 (3 ml) UD INH SCH ×4 (01:31→19:07)
[2018-02-06] MEDS: Meropenem 500 MG in Sodium Chloride 0.9% 100 ML IVPB SCH ×2 (01:59→14:30)
[2018-02-06 06:41] LABS: ALB/GLOB RATIO 0.9 (1.0-2.1); CALCIUM 7.3 mg/dl (8.6-10.4); INR 1.2; PROTHROMBIN TIME 13.2 SECONDS (9.7-12.2)
[2018-02-06 07:27] LABS: BASO # 0.2 K/uL (0.0-0.2); BASO % 2.9 % (0.0-2.0); EOS # 0.7 K/uL (0.0-0.7); EOS % 9.8 % (0.0-4.0); HEMOGLOBIN 8.6 g/dL (12.0-18.0); LYMPH # 0.9 K/uL (1.0-4.3); LYMPH % 12.8 % (20.0-40.0); MEAN CELL VOLUME 86.3 fL (80.0-94.0); MEAN CORPUSCULAR HEMOGLOBIN 31.2 pg (27.0-31.0); MEAN CORPUSCULAR HGB CONC 36.1 g/dL (33.0-37.0); MEAN PLATELET VOLUME 7.3 fL (7.2-11.7); MONO # 1.1 K/uL (0.0-0.8); MONO % 15.9 % (0.0-10.0); NEUT # 4.1 K/uL (1.8-7.0); NEUT % 58.6 % (50.0-75.0); NRBC % 0.1 % (0.0-2.0); RBC 2.75 Mil/uL (4.40-5.90); WHITE BLOOD COUNT 7.1 K/uL (4.8-10.8)
[2018-02-06] MEDS: (Novolog) Insulin Aspart, Recombinant 100 u/ml 10 ml vial SC SCH ×4 (07:46→21:30)
--- NOTE | 2018-02-06 08:55 | CP.PCM.PN ---
Subjective - Date & Time of Evaluation Date of Evaluation: 02/06/18 Time of Evaluation: 07:00 - Subjective Subjective: PGY2 Medicine Note for Dr. Earnestine Deluna Patient was seen and examined at bedside. Patient is s/p AV fistula in the left arm. Patient denies any complaints at this time. Patient denies chest pain, shortness of breath, nausea, or vomiting. Objective - Vital Signs/Intake and Output Vital Signs (last 24 hours): Temp Pulse Resp BP Pulse Ox 98.4 F 74 18 166/76 H 98 02/06/18 07:44 02/06/18 08:46 02/06/18 07:44 02/06/18 07:44 02/06/18 07:44 Intake and Output: 02/06/18 02/06/18 06:59 18:59 Intake Total 500 Balance 500 - Medications Medications: Current Medications Acetaminophen (Tylenol 325mg Tab) 650 mg PO Q4 [facility] Last Admin: 01/30/18 16:12 Dose: Not Given Albuterol/Ipratropium (Duoneb 3 Mg/0.5 Mg (3 Ml) Ud) 3 ml INH RQ6 [facility] Last Admin: 02/06/18 08:16 Dose: Not Given Amlodipine Besylate (Norvasc) 10 mg PO DAILY [facility] Last Admin: 02/05/18 09:49 Dose: 10 mg Carvedilol (Coreg) 12.5 mg PO BID [facility] Last Admin: 02/05/18 17:10 Dose: 12.5 mg Epoetin Alexandr (Procrit) 10,000 unit IV TTS [facility] Heparin Sodium (Porcine) (Heparin) 5,000 units SC Q12 [facility] Last Admin: 02/05/18 22:50 Dose: Not Given Hydralazine HCl (Apresoline) 50 mg PO Q8 [facility] Last Admin: 02/06/18 05:07 Dose: 50 mg Tigecycline 50 mg/ Sodium (Chloride) 100 mls @ 100 mls/hr IVPB Q12H [facility] PRN Reason: Protocol Last Admin: 02/06/18 04:30 Dose: 100 mls/hr Meropenem 500 mg/ Sodium (Chloride) 100 mls @ 100 mls/hr IVPB Q12H [facility] PRN Reason: Protocol Last Admin: 02/06/18 01:59 Dose: 100 mls/hr Insulin Aspart (Novolog) 0 unit SC ACHS [facility] PRN Reason: Protocol Last Admin: 02/06/18 07:46 Dose: Not Given Pantoprazole Sodium (Protonix Ec Tab) 40 mg PO DAILY [facility] Last Admin: 02/05/18 09:49 Dose: 40 mg Tramadol HCl (Ultram) 50 mg PO Q6H PRN PRN Reason: Pain, moderate (4-7) - Labs Labs: 02/06/18 06:15 02/06/18 06:15 PT 13.2 SECONDS (9.7-12.2) H 02/06/18 06:15 INR 1.2 02/06/18 06:15 APTT 31 SECONDS (21-34) 02/06/18 06:15 - Constitutional Appears: No Acute Distress - Head Exam Head Exam: ATRAUMATIC, NORMAL INSPECTION - Eye Exam Eye Exam: EOMI, Normal appearance, PERRL Pupil Exam: NORMAL ACCOMODATION - ENT Exam ENT Exam: Mucous Membranes Moist - Neck Exam Additional comments: Right chest permacath - Respiratory Exam Respiratory Exam: NORMAL BREATHING PATTERN - Cardiovascular Exam Cardiovascular Exam: REGULAR RHYTHM, +S1, +S2 - GI/Abdominal Exam GI & Abdominal Exam: Soft, Normal Bowel Sounds. 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 Zyvox and Aztreonem discontinued on per ID Follow up MRI to r/o osteomyelitis 02/01: patient febrile overnight again, Tmax 101 WBC 9.5 antibiotic regimen adjusted by Dr. Blancas: aztreonam 1g q24, vancomycin added on dialysis days (MWF), meropenem q12 IVPB repeat blood culture ordered as well as stool for ova and parasite due to eosinophilia 01/31: Febrile overnight at 102.6F. Started Aztreonam 1Gm IVPB q24H. Currently on: Aztreonam 1Gm IVPB q24H (started 01/30) Zyvox 600mg PO BID (started 01/29) Meropenem 500mg IVPB Q12 (started 01/30) L foot xray 01/31- negative CT chest/abd/pelv 01/30- Bilateral pleural effusion with lower lobe subsegmental atelectasis. Chronic pancreatitis. Mildly dilated main pulmonary artery. Correlate for any history of pulmonary arterial hypertension. Thickened bladder wall. Possible artifact due to outlet obstruction or cystitis. Anasarca. See full report. 01/30: WBC 10.2 today. Last fever on 01/27. Dr. Blancas, ID, consulted- help appreciated SIRS criteria present on admission (01/25): Temperature 101.2F, HR 106 SOFA score approximately 9 (no ABG for PaO2) initial VBG lactate (01/25) 4.1, repeat 1.0 procalcitonin 5.74 suspected possible sources include: line infection from prior PICC line- culture from (01/25) negative bacteremia- blood culture negative after 4 days pneumonia- chest CT negative for infiltrate however patient was dyspneic on admission, sputum culture uncollected urine- (01/25) urine culture negative prior hallux amputation site- recent amputation for osteomyelitis and was on IV abx prior to this admission. Podiatry team, Dr. Logan, consulted- recommendations appreciated patient on antibiotics: Tigecycline 50mg IVPB q12h (started 02/04) Meropenem 500mg IVPB q12h (started 02/04) patient previously on antibiotics: gentamicin 120mg x 1 dose (01/25) vancomycin x 1 dose (01/25) zosyn (01/25- 01/28) zyvox 600mg IVPB 12h (started 01/25) aztreonam 1gam IVPB q8h (started 01/28) medications adjusted due to kidney function MANDY 02/05: stable dialysis, less dyspneic/swollen, HD TTS, consider for possible AV access while inpatient. 02/01: will check 24 hour urine protein per nephrology 01/31: patient s/p permacath placement with Dr. Haro 01/30. Received dialysis late yesterday. Repeat dialysis this afternoon 01/31. Will have HD MWF. 02/06/18: s/p Left Bidirectional Brachial Artery to Antecubital Vein Fistula Dr. Burger, nephrology, consulted- help appreciated possible etiologies include cardiorenal syndrome, acute allergic interstitial nephritis creatinine rising, today 3.6, was 3.2 on (02/04), creatinine baseline 0.9 end of December 2017/ beginning January 2018 urine protein 50.0 urine eosinophil count pending Bladder US: renal parenchymal disease Dyspnea (resolved) 02/05: ECHO - EF ~65%, large left pleural effusion, otherwise normal ECHO 02/02: patient underwent echo, follow up results 02/01: chest xray with worsening pulmonary vascular congestion, will check echo CT Chest: pulmonary vascular congestion with small to moderate bilateral pleural effusions and subjacent atelectasis (see full report) continue lasix 80mg IVP daily BNP 9070 no echocardiogram in our EMR Transaminitis 02/05: continue downtrending AST 29/ALT 53, Alk Phos 160 02/02: continue downtrending AST/ALT 60/85 today 01/31: downtrending LFTs after stopping Tylenol. Continue Ultram 50mg PO q6H PRN pain. 01/30: AST stable 142. ALT 129 and AlkP 190 uptrending. Stop Tylenol PRN. Start Ultram 50mg PO q6H PRN pain. AST/ ALT/ Alk phos increasing, today 175/ 121/180 T. Bili not elevated at 0.7 hepatitis A & B negative Hepatitis C negative RPR, HIV negative HTN hydralazine 50mg PO Q8h norvasc 10mg PO daily DM ISS Accucheck ACHS A1c 7.0 in 12/2017 holding all PO meds currently due to renal function left hallux amputation site bandaged Left hallux amputation procedure performed on last admission Dr. Logan, podiatry, following while patient in-house Prophylactic measure heparin 5,000unit Q12h (renal dosing) protonix 40mg IVP daily All medical management as per Dr. Deluna
[2018-02-06] MEDS: Saccharomyces Boulardi 250 mg Cap PO SCH ×2 (09:35→17:15)
[2018-02-06] MEDS: Pantoprazole 40 mg EC Tab PO SCH (09:35)
[2018-02-06] MEDS ORDERED: Lidocaine Hydrochloride 10 ML INJ ONE (10:23)
[2018-02-06] MEDS ORDERED: HEPARIN-NS 5,000 UNITS/500 ML 5,000 UNIT/500 ML BAG IV ONE (10:23)
--- NOTE | 2018-02-06 10:25 | CP.PCM.PN ---
Subjective - Date & Time of Evaluation Date of Evaluation: 02/06/18 Time of Evaluation: 10:23 - Subjective Subjective: feels better less swollen, not dyspneic now for HD today also for AV access HTN still sl elevated Objective - Vital Signs/Intake and Output Vital Signs (last 24 hours): Temp Pulse Resp BP Pulse Ox 98.4 F 74 18 162/73 H 98 02/06/18 07:44 02/06/18 08:46 02/06/18 07:44 02/06/18 09:36 02/06/18 07:44 Intake and Output: 02/06/18 02/06/18 06:59 18:59 Intake Total 500 Balance 500 - Medications Medications: Current Medications Acetaminophen (Tylenol 325mg Tab) 650 mg PO Q4 [facility] Last Admin: 01/30/18 16:12 Dose: Not Given Albuterol/Ipratropium (Duoneb 3 Mg/0.5 Mg (3 Ml) Ud) 3 ml INH RQ6 [facility] Last Admin: 02/06/18 08:16 Dose: Not Given Amlodipine Besylate (Norvasc) 10 mg PO DAILY [facility] Carvedilol (Coreg) 12.5 mg PO BID [facility] Last Admin: 02/06/18 09:36 Dose: 12.5 mg Epoetin Alexandr (Procrit) 10,000 unit IV TTS [facility] Heparin Sodium (Porcine) (Heparin) 5,000 units SC Q12 [facility] Last Admin: 02/06/18 09:39 Dose: Not Given Hydralazine HCl (Apresoline) 50 mg PO Q8 [facility] Last Admin: 02/06/18 05:07 Dose: 50 mg Tigecycline 50 mg/ Sodium (Chloride) 100 mls @ 100 mls/hr IVPB Q12H [facility] PRN Reason: Protocol Last Admin: 02/06/18 04:30 Dose: 100 mls/hr Meropenem 500 mg/ Sodium (Chloride) 100 mls @ 100 mls/hr IVPB Q12H [facility] PRN Reason: Protocol Last Admin: 02/06/18 01:59 Dose: 100 mls/hr Insulin Aspart (Novolog) 0 unit SC ACHS [facility] PRN Reason: Protocol Last Admin: 02/06/18 07:46 Dose: Not Given Pantoprazole Sodium (Protonix Ec Tab) 40 mg PO DAILY [facility] Last Admin: 02/06/18 09:35 Dose: 40 mg Saccharomyces Boulardii (Florastor) 250 mg PO BID [facility] Last Admin: 02/06/18 09:35 Dose: 250 mg Tramadol HCl (Ultram) 50 mg PO Q6H PRN PRN Reason: Pain, moderate (4-7) - Labs Labs: 02/06/18 06:15 02/06/18 06:15 PT 13.2 SECONDS (9.7-12.2) H 02/06/18 06:15 INR 1.2 02/06/18 06:15 APTT 31 SECONDS (21-34) 02/06/18 06:15 - Constitutional Appears: No Acute Distress, Chronically Ill - Head Exam Head Exam: ATRAUMATIC, NORMAL INSPECTION - Eye Exam Eye Exam: EOMI, Normal appearance - Neck Exam Neck Exam: Normal Inspection. absent: Tenderness - Respiratory Exam Respiratory Exam: Clear to Ausculation Bilateral, NORMAL BREATHING PATTERN - Cardiovascular Exam Cardiovascular Exam: REGULAR RHYTHM, +S1 - GI/Abdominal Exam GI & Abdominal Exam: Soft. absent: Tenderness - Extremities Exam Extremities Exam: Normal Inspection, Pedal Edema - Neurological Exam Neurological Exam: Alert, CN II-XII Intact - Skin Skin Exam: Dry, Warm Assessment and Plan (1) MANDY (acute kidney injury) Status: Acute (2) Type 2 diabetes mellitus with diabetic nephropathy Status: Acute (3) Fever Status: Acute (4) Diabetes 1.5, managed as type 2 Status: Acute (5) Nonhealing ulcer of left lower extremity Status: Acute (6) CHF (congestive heart failure) Status: Acute (7) ESRD (end stage renal disease) Status: Acute - Assessment and Plan (Free Text) Plan: dialysis TTS Monitor HTN AV access soon
[2018-02-06] MEDS ORDERED: Lidocaine 2% MPF (5 ml) Inj ONE (11:44)
[2018-02-06] MEDS ORDERED: Bupivacaine-Epi 0.5%-1:200,000 PF Inj ONE (11:44)
[2018-02-06] MEDS ORDERED: Propofol 10 mg/ml Inj (20 ML) ONE (11:45)
--- NOTE | 2018-02-06 11:50 | CP.PCM.PN ---
Subjective - Date & Time of Evaluation Date of Evaluation: 02/06/18 Time of Evaluation: 11:47 - Subjective Subjective: Podiatry Progress Note - Dr. Logan 62 year old male patient who is 5 weeks s/p left foot partial hallux amputation seen and evaluated at bedside. Patient is AAOx3 and in NAD. Patient is resting in bed comfortably. Patient denies any other pedal complaints at this time. Patient denies N/V/F/C/SOB/CP/pain on posterior calf since last night. Objective - Vital Signs/Intake and Output Vital Signs (last 24 hours): Temp Pulse Resp BP Pulse Ox 98.4 F 74 18 162/73 H 98 02/06/18 07:44 02/06/18 08:46 02/06/18 07:44 02/06/18 09:36 02/06/18 07:44 Intake and Output: 02/06/18 02/06/18 06:59 18:59 Intake Total 500 Balance 500 - Medications Medications: Current Medications Acetaminophen (Tylenol 325mg Tab) 650 mg PO Q4 [facility] Last Admin: 01/30/18 16:12 Dose: Not Given Albuterol/Ipratropium (Duoneb 3 Mg/0.5 Mg (3 Ml) Ud) 3 ml INH RQ6 [facility] Last Admin: 02/06/18 08:16 Dose: Not Given Amlodipine Besylate (Norvasc) 10 mg PO DAILY [facility] Carvedilol (Coreg) 12.5 mg PO BID [facility] Last Admin: 02/06/18 09:36 Dose: 12.5 mg Epoetin Alexandr (Procrit) 10,000 unit IV TTS [facility] Heparin Sodium (Porcine) (Heparin) 5,000 units SC Q12 [facility] Last Admin: 02/06/18 09:39 Dose: Not Given Hydralazine HCl (Apresoline) 50 mg PO Q8 [facility] Last Admin: 02/06/18 05:07 Dose: 50 mg Tigecycline 50 mg/ Sodium (Chloride) 100 mls @ 100 mls/hr IVPB Q12H [facility] PRN Reason: Protocol Last Admin: 02/06/18 04:30 Dose: 100 mls/hr Meropenem 500 mg/ Sodium (Chloride) 100 mls @ 100 mls/hr IVPB Q12H [facility] PRN Reason: Protocol Last Admin: 02/06/18 01:59 Dose: 100 mls/hr Insulin Aspart (Novolog) 0 unit SC ACHS [facility] PRN Reason: Protocol Last Admin: 02/06/18 07:46 Dose: Not Given Pantoprazole Sodium (Protonix Ec Tab) 40 mg PO DAILY [facility] Last Admin: 02/06/18 09:35 Dose: 40 mg Saccharomyces Boulardii (Florastor) 250 mg PO BID [facility] Last Admin: 02/06/18 09:35 Dose: 250 mg Tramadol HCl (Ultram) 50 mg PO Q6H PRN PRN Reason: Pain, moderate (4-7) - Labs Labs: 02/06/18 06:15 02/06/18 06:15 PT 13.2 SECONDS (9.7-12.2) H 02/06/18 06:15 INR 1.2 02/06/18 06:15 APTT 31 SECONDS (21-34) 02/06/18 06:15 - Constitutional Appears: Well, Non-toxic, No Acute Distress - Extremities Exam Additional comments: Left LE focused exam: Vasc: DP/PT pulses non-palpable, Cap refill delayed > 3 sec in all digits, Temp gradient warm to cool. No edema. Neuro: Gross and protective sensation intact. Derm: Surgical incision site appears clean, dry, well coapted, no sutures remain , there is no evidence of wound dehiscence, no malodor, no drainage, No clinical signs of active bacterial infection noted. Ortho: No pain on palpation at the surgical site. Partially amputated L hallux is noted. 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 Logan Left hallux dressed using betadine, DSD and kerlix Patient is stable from podiatry standpoint Podiatry will continue to follow in house
[2018-02-06] MEDS ORDERED: HYDROmorphone 0.5 mg/0.5 ml ISec IVP PRN (13:58)
--- NOTE | 2018-02-06 14:00 | PCM.SURG1 ---
Surgeon's Initial Post Op Note - Surgeon's Notes Surgeon: Dr. Carl Haro Inpatient Nursing Aide: Elan Robles PGY-1 Type of Anesthesia: Block [facility] Pre-Operative Diagnosis: Left AV Fistula Operative Findings: Side to side brachial artery to anticubital fossa vein. Doppler findings present on radial and ulnar artery with biphasic waves present. Post-Operative Diagnosis: Left Bidirectional Brachial Artery to Antecubital Vein Fistula Operation Performed: Left Bidirectional Brachial Artery to Antecubital Vein Fistula Specimen/Specimens Removed: None Estimated Blood Loss: EBL {In ML}: 75 Blood Products Given: N/A Drains Used: No Drains Post-Op Condition: Good Date of Surgery/Procedure: 02/06/18 Time of Surgery/Procedure: 14:01
--- NOTE | 2018-02-06 15:32 | CP.PCM.PN ---
Subjective - Date & Time of Evaluation Date of Evaluation: 02/06/18 Time of Evaluation: 08:30 - Subjective Subjective: clinically same Objective - Vital Signs/Intake and Output Vital Signs (last 24 hours): Temp Pulse Resp BP Pulse Ox 98.9 F 63 18 128/67 97 02/06/18 13:57 02/06/18 15:00 02/06/18 15:00 02/06/18 15:00 02/06/18 15:00 Intake and Output: 02/06/18 02/06/18 06:59 18:59 Intake Total 500 100 Balance 500 100 - Medications Medications: Current Medications Acetaminophen (Tylenol 325mg Tab) 650 mg PO Q4 [facility] Last Admin: 01/30/18 16:12 Dose: Not Given Albuterol/Ipratropium (Duoneb 3 Mg/0.5 Mg (3 Ml) Ud) 3 ml INH RQ6 [facility] Last Admin: 02/06/18 13:42 Dose: Not Given Amlodipine Besylate (Norvasc) 10 mg PO DAILY [facility] Carvedilol (Coreg) 12.5 mg PO BID [facility] Last Admin: 02/06/18 09:36 Dose: 12.5 mg Epoetin Alexandr (Procrit) 10,000 unit IV TTS [facility] Heparin Sodium (Porcine) (Heparin) 5,000 units SC Q12 [facility] Last Admin: 02/06/18 09:39 Dose: Not Given Hydralazine HCl (Apresoline) 50 mg PO Q8 [facility] Last Admin: 02/06/18 05:07 Dose: 50 mg Hydromorphone HCl (Dilaudid) 0.5 mg IVP Q10M PRN PRN Reason: Pain, severe (8-10) Stop: 02/06/18 15:59 Hydromorphone HCl (Dilaudid) 0.5 mg IVP Q4H PRN PRN Reason: Pain, moderate (4-7) Tigecycline 50 mg/ Sodium (Chloride) 100 mls @ 100 mls/hr IVPB Q12H [facility] PRN Reason: Protocol Last Admin: 02/06/18 04:30 Dose: 100 mls/hr Meropenem 500 mg/ Sodium (Chloride) 100 mls @ 100 mls/hr IVPB Q12H [facility] PRN Reason: Protocol Last Admin: 02/06/18 01:59 Dose: 100 mls/hr Insulin Aspart (Novolog) 0 unit SC ACHS [facility] PRN Reason: Protocol Last Admin: 02/06/18 12:02 Dose: Not Given Ondansetron HCl (Zofran Inj) 4 mg IVP ONCE PRN PRN Reason: Nausea/Vomiting Stop: 02/06/18 15:59 Pantoprazole Sodium (Protonix Ec Tab) 40 mg PO DAILY [facility] Last Admin: 02/06/18 09:35 Dose: 40 mg Saccharomyces Boulardii (Florastor) 250 mg PO BID [facility] Last Admin: 02/06/18 09:35 Dose: 250 mg Tramadol HCl (Ultram) 50 mg PO Q6H PRN PRN Reason: Pain, moderate (4-7) - Labs Labs: 02/06/18 06:15 02/06/18 06:15 PT 13.2 SECONDS (9.7-12.2) H 02/06/18 06:15 INR 1.2 02/06/18 06:15 APTT 31 SECONDS (21-34) 02/06/18 06:15 - Constitutional Appears: Well - Head Exam Head Exam: ATRAUMATIC, NORMAL INSPECTION, NORMOCEPHALIC - Eye Exam Eye Exam: EOMI, Normal appearance, PERRL Pupil Exam: NORMAL ACCOMODATION, PERRL - ENT Exam ENT Exam: Mucous Membranes Moist, Normal Exam - Neck Exam Neck Exam: Full ROM, Normal Inspection. absent: Lymphadenopathy - Respiratory Exam Respiratory Exam: Decreased Breath Sounds - Cardiovascular Exam Cardiovascular Exam: REGULAR RHYTHM, +S1, +S2 - GI/Abdominal Exam GI & Abdominal Exam: Diminished Bowel Sounds - Rectal Exam Rectal Exam: Deferred Assessment and Plan - Assessment and Plan (Free Text) Plan: Hemodialysis ID consult Follow-up with the residents ID consult Status post podiatry IV antibiotic As ordered
--- NOTE | 2018-02-06 17:33 | CP.PCM.PN ---
Subjective - Date & Time of Evaluation Date of Evaluation: 02/06/18 Time of Evaluation: 03:00 - Subjective Subjective: dictated Objective - Vital Signs/Intake and Output Vital Signs (last 24 hours): Temp Pulse Resp BP Pulse Ox 98.1 F 66 16 139/62 98 02/06/18 15:15 02/06/18 16:54 02/06/18 15:15 02/06/18 17:15 02/06/18 15:15 Intake and Output: 02/06/18 02/06/18 06:59 18:59 Intake Total 500 140 Balance 500 140 - Medications Medications: Current Medications Acetaminophen (Tylenol 325mg Tab) 650 mg PO Q4 [facility] Last Admin: 01/30/18 16:12 Dose: Not Given Albuterol/Ipratropium (Duoneb 3 Mg/0.5 Mg (3 Ml) Ud) 3 ml INH RQ6 [facility] Last Admin: 02/06/18 13:42 Dose: Not Given Amlodipine Besylate (Norvasc) 10 mg PO DAILY [facility] Carvedilol (Coreg) 12.5 mg PO BID [facility] Last Admin: 02/06/18 17:15 Dose: 12.5 mg Epoetin Alexandr (Procrit) 10,000 unit IV TTS [facility] Heparin Sodium (Porcine) (Heparin) 5,000 units SC Q12 [facility] Last Admin: 02/06/18 09:39 Dose: Not Given Hydralazine HCl (Apresoline) 50 mg PO Q8 [facility] Last Admin: 02/06/18 14:00 Dose: Not Given Hydromorphone HCl (Dilaudid) 0.5 mg IVP Q4H PRN PRN Reason: Pain, moderate (4-7) Tigecycline 50 mg/ Sodium (Chloride) 100 mls @ 100 mls/hr IVPB Q12H [facility] PRN Reason: Protocol Last Admin: 02/06/18 17:15 Dose: 100 mls/hr Meropenem 500 mg/ Sodium (Chloride) 100 mls @ 100 mls/hr IVPB Q12H [facility] PRN Reason: Protocol Last Admin: 02/06/18 14:30 Dose: Not Given Insulin Aspart (Novolog) 0 unit SC ACHS [facility] PRN Reason: Protocol Last Admin: 02/06/18 17:16 Dose: 3 units Pantoprazole Sodium (Protonix Ec Tab) 40 mg PO DAILY [facility] Last Admin: 02/06/18 09:35 Dose: 40 mg Saccharomyces Boulardii (Florastor) 250 mg PO BID [facility] Last Admin: 02/06/18 17:15 Dose: 250 mg Tramadol HCl (Ultram) 50 mg PO Q6H PRN PRN Reason: Pain, moderate (4-7) - Labs Labs: 02/06/18 06:15 02/06/18 06:15 PT 13.2 SECONDS (9.7-12.2) H 02/06/18 06:15 INR 1.2 02/06/18 06:15 APTT 31 SECONDS (21-34) 02/06/18 06:15
[2018-02-06] MEDS: HYDROmorphone 0.5 mg/0.5 ml ISec IVP PRN (18:35)
--- NOTE | 2018-02-06 23:29 | PN ---
DATE: 02/06/2018 SUBJECTIVE: The patient was seen today. Looks like he returned from the OR. He had left AV fistula placed. He denies any complaints. He says his legs are aching less today and he also had a dressing to his foot this morning, he was not told there is anything going on. He denies any abdominal pain, no nausea, no vomiting, no shortness of breath. He did not have any fever, but he remains on meropenem and Tygacil at this time and denies any diarrhea. No urinary complaints. He is with the fistula, but he remains on antibiotics. I wanted to get Ceretec scan done, which probably will be done, which order has been placed. PHYSICAL EXAMINATION: VITAL SIGNS: Stable at this time. Temperature 98.4, pulse 74, blood pressure 166/76, respirations 18. HEENT: Head is atraumatic, normocephalic. He is alert, awake, able to answer questions. LUNGS: Clear. HEART: S1 and S2 are regular. ABDOMEN: Soft, nontender, no guarding. No rigidity present. EXTREMITIES: Still have edema, decreasing redness and itching that he has been doing and has left arm dressing at this time. He is status post fistula placement. Cultures have all been negative from 02/05/2018, and we will follow. LABORATORY DATA: His labs show white count is 7.1, hemoglobin 8.6, hematocrit 23.7, platelet count is 253. His sodium is 134, potassium 4.5, chloride is 98, CO2 is 26, BUN is 34, anion gap is 15, creatinine 3. We will continue antibiotics at this time, and we will follow. If the cellulitis gets better further and Ceretec scan, I want to be sure is negative, then we may plan to change to oral antibiotics, but Ceretec scan is for 02/08/2018, so we will follow that and then decide about antibiotics. He also needs dialysis, so that is the other issue which needs to be solved before we discharge him. Tiffany Blancas MD
[2018-02-07] MEDS: Albuterol-Ipratrop 3 mg / 0.5 (3 ml) UD INH SCH ×4 (01:03→20:38)
[2018-02-07] MEDS: Meropenem 500 MG in Sodium Chloride 0.9% 100 ML IVPB SCH ×2 (01:24→14:14)
--- NOTE | 2018-02-07 01:24 | OP ---
PROCEDURE DATE: 02/06/2018 PREOPERATIVE DIAGNOSIS: Renal failure. POSTOPERATIVE DIAGNOSIS: Renal failure. PROCEDURE CARRIED OUT: Brachial-antecubital vein fistula, left elbow. SURGEON: Carl Haro Jr., M.D. MATERIALS DIRECTOR: Dr. Real. ANESTHESIOLOGIST: Mr. Crawley. ANESTHESIA: Axillary block. INDICATIONS: The patient is a 62-year-old man with renal insufficiency, presently has right jugular catheter. OPERATIVE FINDINGS: The cephalic pain at the wrist was of adequate size; however, soon after for intravenous access and was no longer adequate candidate to be used for fistula. Because of this, we went to the antecubital vein, which was of good size. So we disrupted the valves from the elbow down to allow for retrograde flow. At the end of the procedure, there was excellent Doppler flow at the wrist, not a palpable pulse and excellent flow through the fistula. DESCRIPTION OF PROCEDURE: The patient was given an axillary block and an incision was made directly over the vein, which have been marked on the skin. The vein was dissected free. The artery was dissected free. There was a small amount of bleeding from veins overlying the artery. After this have been controlled, we gave heparin. Obtained hemostasis and performed a side to side fistula with disruption of the distal valves. After this has been done, we then closed the wound with Monocryl and Vicryl sutures. Closed the skin with 5-0 nylon suture. Blood loss for the procedure was 75 mL. Procedure was carried out with loupe magnification and heparin anticoagulation. The patient may require additional surgery to the surface in the future. Carl Haro Jr., MD
[2018-02-07] MEDS: HYDROmorphone 0.5 mg/0.5 ml ISec IVP PRN (01:27)
[2018-02-07] MEDS: (Novolog) Insulin Aspart, Recombinant 100 u/ml 10 ml vial SC SCH ×4 (08:16→21:09)
--- NOTE | 2018-02-07 08:30 | CP.PCM.PN ---
Subjective - Date & Time of Evaluation Date of Evaluation: 02/07/18 Time of Evaluation: 07:15 - Subjective Subjective: General Surgery Progress Note for Dr. Haro 62M seen and examined this AM. Pt is resting comfortably in bed. No acute events overnight however this AM had temperature of 100.4. C/o left arm pain with movement and difficulty lifting arm. Doppler US done at bedside showed biphasic waves in the left ulnar and radial artery. Pulse ox of the left digits were all 97%. Has not ambulated much since post-op. Denies n/v/d, SOB, CP, or urinary symptoms. Objective - Vital Signs/Intake and Output Vital Signs (last 24 hours): Temp Pulse Resp BP Pulse Ox 100.4 F H 77 18 163/73 H 94 L 02/07/18 07:20 02/07/18 07:20 02/07/18 07:20 02/07/18 07:20 02/07/18 07:20 Intake and Output: 02/07/18 02/07/18 06:59 18:59 Intake Total 300 Balance 300 - Medications Medications: Current Medications Acetaminophen (Tylenol 325mg Tab) 650 mg PO Q4 [facility] Last Admin: 01/30/18 16:12 Dose: Not Given Albuterol/Ipratropium (Duoneb 3 Mg/0.5 Mg (3 Ml) Ud) 3 ml INH RQ6 [facility] Last Admin: 02/07/18 07:58 Dose: 3 ml Amlodipine Besylate (Norvasc) 10 mg PO DAILY [facility] Carvedilol (Coreg) 12.5 mg PO BID [facility] Last Admin: 02/06/18 17:15 Dose: 12.5 mg Epoetin Alexandr (Procrit) 10,000 unit IV TTS [facility] Heparin Sodium (Porcine) (Heparin) 5,000 units SC Q12 [facility] Last Admin: 02/06/18 21:26 Dose: 5,000 units Hydralazine HCl (Apresoline) 50 mg PO Q8 [facility] Last Admin: 02/07/18 05:57 Dose: 50 mg Hydromorphone HCl (Dilaudid) 0.5 mg IVP Q4H PRN PRN Reason: Pain, moderate (4-7) Last Admin: 02/07/18 01:27 Dose: 0.5 mg Tigecycline 50 mg/ Sodium (Chloride) 100 mls @ 100 mls/hr IVPB Q12H [facility] PRN Reason: Protocol Last Admin: 02/07/18 05:57 Dose: 100 mls/hr Meropenem 500 mg/ Sodium (Chloride) 100 mls @ 100 mls/hr IVPB Q12H [facility] PRN Reason: Protocol Last Admin: 02/07/18 01:24 Dose: 100 mls/hr Insulin Aspart (Novolog) 0 unit SC ACHS [facility] PRN Reason: Protocol Last Admin: 02/06/18 21:30 Dose: Not Given Pantoprazole Sodium (Protonix Ec Tab) 40 mg PO DAILY [facility] Last Admin: 02/06/18 09:35 Dose: 40 mg Saccharomyces Boulardii (Florastor) 250 mg PO BID [facility] Last Admin: 02/06/18 17:15 Dose: 250 mg Tramadol HCl (Ultram) 50 mg PO Q6H PRN PRN Reason: Pain, moderate (4-7) - Labs Labs: 02/06/18 06:15 02/06/18 06:15 PT 13.2 SECONDS (9.7-12.2) H 02/06/18 06:15 INR 1.2 02/06/18 06:15 APTT 31 SECONDS (21-34) 02/06/18 06:15 - Constitutional Appears: Well - Head Exam Head Exam: ATRAUMATIC, NORMAL INSPECTION, NORMOCEPHALIC - Eye Exam Eye Exam: EOMI, Normal appearance, PERRL - Neck Exam Neck Exam: Full ROM, Normal Inspection. absent: Lymphadenopathy - Respiratory Exam Respiratory Exam: Clear to Ausculation Bilateral, NORMAL BREATHING PATTERN - Cardiovascular Exam Cardiovascular Exam: REGULAR RHYTHM, +S1, +S2. absent: Murmur - GI/Abdominal Exam GI & Abdominal Exam: Soft, Normal Bowel Sounds. absent: Tenderness - Extremities Exam Additional comments: Limited ROM and tender to palpation of left arm. Dressing over AVF c/d/i. - Neurological Exam Neurological Exam: Alert, Awake, Oriented x3 - Skin Skin Exam: Dry, Intact, Normal Color, Warm Assessment and Plan - Assessment and Plan (Free Text) Assessment: 62M s/p L arm AVF POD1 Plan: Left arm limb precaution c/w pain control will monitor left arm function and ROM encouraged ambulation further recs per Dr. Estrellita Robles PGY-1
[2018-02-07] MEDS: Saccharomyces Boulardi 250 mg Cap PO SCH ×2 (09:15→18:08)
[2018-02-07] MEDS: Pantoprazole 40 mg EC Tab PO SCH (09:15)
--- NOTE | 2018-02-07 09:31 | CP.PCM.PN ---
Subjective - Date & Time of Evaluation Date of Evaluation: 02/07/18 Time of Evaluation: 09:28 - Subjective Subjective: appears ok; no dyspnea, CPs, n, vomiting, chills Has low grade temp elevation stable HD 02/06- UF 3300ml BP moderately increased labs acceptable Objective - Vital Signs/Intake and Output Vital Signs (last 24 hours): Temp Pulse Resp BP Pulse Ox 100.4 F H 77 18 163/73 H 94 L 02/07/18 07:20 02/07/18 07:20 02/07/18 07:20 02/07/18 07:20 02/07/18 07:20 Intake and Output: 02/07/18 02/07/18 06:59 18:59 Intake Total 300 Balance 300 - Medications Medications: Current Medications Acetaminophen (Tylenol 325mg Tab) 650 mg PO Q4 [facility] Last Admin: 01/30/18 16:12 Dose: Not Given Albuterol/Ipratropium (Duoneb 3 Mg/0.5 Mg (3 Ml) Ud) 3 ml INH RQ6 [facility] Last Admin: 02/07/18 07:58 Dose: 3 ml Amlodipine Besylate (Norvasc) 10 mg PO DAILY [facility] Last Admin: 02/07/18 09:17 Dose: Not Given Carvedilol (Coreg) 12.5 mg PO BID [facility] Last Admin: 02/06/18 17:15 Dose: 12.5 mg Epoetin Alexandr (Procrit) 10,000 unit IV TTS [facility] Heparin Sodium (Porcine) (Heparin) 5,000 units SC Q12 [facility] Last Admin: 02/07/18 09:15 Dose: 5,000 units Hydralazine HCl (Apresoline) 50 mg PO Q8 [facility] Last Admin: 02/07/18 05:57 Dose: 50 mg Hydromorphone HCl (Dilaudid) 0.5 mg IVP Q4H PRN PRN Reason: Pain, moderate (4-7) Last Admin: 02/07/18 01:27 Dose: 0.5 mg Tigecycline 50 mg/ Sodium (Chloride) 100 mls @ 100 mls/hr IVPB Q12H [facility] PRN Reason: Protocol Last Admin: 02/07/18 05:57 Dose: 100 mls/hr Meropenem 500 mg/ Sodium (Chloride) 100 mls @ 100 mls/hr IVPB Q12H [facility] PRN Reason: Protocol Last Admin: 02/07/18 01:24 Dose: 100 mls/hr Insulin Aspart (Novolog) 0 unit SC ACHS [facility] PRN Reason: Protocol Last Admin: 02/07/18 08:16 Dose: 6 units Pantoprazole Sodium (Protonix Ec Tab) 40 mg PO DAILY [facility] Last Admin: 02/07/18 09:15 Dose: 40 mg Saccharomyces Boulardii (Florastor) 250 mg PO BID [facility] Last Admin: 02/07/18 09:15 Dose: 250 mg Tramadol HCl (Ultram) 50 mg PO Q6H PRN PRN Reason: Pain, moderate (4-7) - Labs Labs: 02/06/18 06:15 02/06/18 06:15 PT 13.2 SECONDS (9.7-12.2) H 02/06/18 06:15 INR 1.2 02/06/18 06:15 APTT 31 SECONDS (21-34) 02/06/18 06:15 - Constitutional Appears: Non-toxic, No Acute Distress, Chronically Ill - Head Exam Head Exam: ATRAUMATIC, NORMAL INSPECTION - Eye Exam Eye Exam: EOMI, Normal appearance - Neck Exam Neck Exam: Normal Inspection. absent: Tenderness - Respiratory Exam Respiratory Exam: Clear to Ausculation Bilateral, NORMAL BREATHING PATTERN - Cardiovascular Exam Cardiovascular Exam: REGULAR RHYTHM, +S1 - GI/Abdominal Exam GI & Abdominal Exam: Soft. absent: Tenderness - Extremities Exam Extremities Exam: Normal Inspection. absent: Tenderness - Neurological Exam Neurological Exam: Awake, CN II-XII Intact - Skin Skin Exam: Dry, Warm Assessment and Plan (1) MANDY (acute kidney injury) Status: Acute (2) Type 2 diabetes mellitus with diabetic nephropathy Status: Acute (3) Fever Status: Acute (4) Diabetes 1.5, managed as type 2 Status: Acute (5) Nonhealing ulcer of left lower extremity Status: Acute (6) CHF (congestive heart failure) Status: Acute (7) ESRD (end stage renal disease) Status: Acute - Assessment and Plan (Free Text) Plan: dialysis TTS Monitor HTN Iv ABs- ID follow up Will eventually need AV access
--- NOTE | 2018-02-07 14:16 | CP.PCM.PN ---
Subjective - Date & Time of Evaluation Date of Evaluation: 02/07/18 Time of Evaluation: 07:40 - Subjective Subjective: clinically same Objective - Vital Signs/Intake and Output Vital Signs (last 24 hours): Temp Pulse Resp BP Pulse Ox 100.4 F H 73 18 133/67 94 L 02/07/18 07:20 02/07/18 13:01 02/07/18 07:20 02/07/18 13:01 02/07/18 07:20 Intake and Output: 02/07/18 02/07/18 06:59 18:59 Intake Total 300 Balance 300 - Medications Medications: Current Medications Acetaminophen (Tylenol 325mg Tab) 650 mg PO Q4 [facility] Last Admin: 01/30/18 16:12 Dose: Not Given Albuterol/Ipratropium (Duoneb 3 Mg/0.5 Mg (3 Ml) Ud) 3 ml INH RQ6 [facility] Last Admin: 02/07/18 13:30 Dose: 3 ml Amlodipine Besylate (Norvasc) 10 mg PO DAILY [facility] Last Admin: 02/07/18 09:17 Dose: Not Given Carvedilol (Coreg) 12.5 mg PO BID [facility] Last Admin: 02/07/18 10:59 Dose: 12.5 mg Epoetin Alexandr (Procrit) 10,000 unit IV TTS [facility] Heparin Sodium (Porcine) (Heparin) 5,000 units SC Q12 [facility] Last Admin: 02/07/18 09:15 Dose: 5,000 units Hydralazine HCl (Apresoline) 50 mg PO Q8 [facility] Last Admin: 02/07/18 13:01 Dose: 50 mg Hydromorphone HCl (Dilaudid) 0.5 mg IVP Q4H PRN PRN Reason: Pain, moderate (4-7) Last Admin: 02/07/18 01:27 Dose: 0.5 mg Tigecycline 50 mg/ Sodium (Chloride) 100 mls @ 100 mls/hr IVPB Q12H [facility] PRN Reason: Protocol Last Admin: 02/07/18 05:57 Dose: 100 mls/hr Meropenem 500 mg/ Sodium (Chloride) 100 mls @ 100 mls/hr IVPB Q12H [facility] PRN Reason: Protocol Last Admin: 02/07/18 14:14 Dose: 100 mls/hr Insulin Aspart (Novolog) 0 unit SC ACHS [facility] PRN Reason: Protocol Last Admin: 02/07/18 11:58 Dose: 3 units Pantoprazole Sodium (Protonix Ec Tab) 40 mg PO DAILY [facility] Last Admin: 02/07/18 09:15 Dose: 40 mg Saccharomyces Boulardii (Florastor) 250 mg PO BID [facility] Last Admin: 02/07/18 09:15 Dose: 250 mg Tramadol HCl (Ultram) 50 mg PO Q6H PRN PRN Reason: Pain, moderate (4-7) - Labs Labs: 02/06/18 06:15 02/06/18 06:15 PT 13.2 SECONDS (9.7-12.2) H 02/06/18 06:15 INR 1.2 02/06/18 06:15 APTT 31 SECONDS (21-34) 02/06/18 06:15 - Constitutional Appears: Well - Head Exam Head Exam: ATRAUMATIC, NORMAL INSPECTION, NORMOCEPHALIC - Eye Exam Eye Exam: EOMI, Normal appearance, PERRL Pupil Exam: NORMAL ACCOMODATION, PERRL - ENT Exam ENT Exam: Mucous Membranes Moist, Normal Exam - Neck Exam Neck Exam: Full ROM, Normal Inspection. absent: Lymphadenopathy - Respiratory Exam Respiratory Exam: Decreased Breath Sounds - Cardiovascular Exam Cardiovascular Exam: REGULAR RHYTHM, +S1, +S2 - GI/Abdominal Exam GI & Abdominal Exam: Soft, Diminished Bowel Sounds - Rectal Exam Rectal Exam: Deferred
--- NOTE | 2018-02-07 16:33 | CP.PCM.PN ---
Subjective - Date & Time of Evaluation Date of Evaluation: 02/07/18 Time of Evaluation: 16:31 - Subjective Subjective: Podiatry Progress Note - Dr. Logan 62 year old male patient who is 5 weeks s/p left foot partial hallux amputation seen and evaluated at bedside. Patient is AAOx3 and in NAD. Patient is resting in bed comfortably. Patient denies any other pedal complaints at this time. Patient denies N/V/F/C/SOB/CP/pain on posterior calf since last night. Objective - Vital Signs/Intake and Output Vital Signs (last 24 hours): Temp Pulse Resp BP Pulse Ox 99.7 F H 69 20 122/50 L 98 02/07/18 15:00 02/07/18 15:00 02/07/18 15:00 02/07/18 15:00 02/07/18 15:00 Intake and Output: 02/07/18 02/07/18 06:59 18:59 Intake Total 300 340 Balance 300 340 - Medications Medications: Current Medications Acetaminophen (Tylenol 325mg Tab) 650 mg PO Q4 [facility] Last Admin: 01/30/18 16:12 Dose: Not Given Albuterol/Ipratropium (Duoneb 3 Mg/0.5 Mg (3 Ml) Ud) 3 ml INH RQ6 [facility] Last Admin: 02/07/18 13:30 Dose: 3 ml Amlodipine Besylate (Norvasc) 10 mg PO DAILY [facility] Last Admin: 02/07/18 09:17 Dose: Not Given Carvedilol (Coreg) 12.5 mg PO BID [facility] Last Admin: 02/07/18 10:59 Dose: 12.5 mg Epoetin Alexandr (Procrit) 10,000 unit IV TTS [facility] Heparin Sodium (Porcine) (Heparin) 5,000 units SC Q12 [facility] Last Admin: 02/07/18 09:15 Dose: 5,000 units Hydralazine HCl (Apresoline) 50 mg PO Q8 [facility] Last Admin: 02/07/18 13:01 Dose: 50 mg Hydromorphone HCl (Dilaudid) 0.5 mg IVP Q4H PRN PRN Reason: Pain, moderate (4-7) Last Admin: 02/07/18 01:27 Dose: 0.5 mg Tigecycline 50 mg/ Sodium (Chloride) 100 mls @ 100 mls/hr IVPB Q12H [facility] PRN Reason: Protocol Last Admin: 02/07/18 05:57 Dose: 100 mls/hr Meropenem 500 mg/ Sodium (Chloride) 100 mls @ 100 mls/hr IVPB Q12H [facility] PRN Reason: Protocol Last Admin: 02/07/18 14:14 Dose: 100 mls/hr Insulin Aspart (Novolog) 0 unit SC ACHS [facility] PRN Reason: Protocol Last Admin: 02/07/18 11:58 Dose: 3 units Pantoprazole Sodium (Protonix Ec Tab) 40 mg PO DAILY [facility] Last Admin: 02/07/18 09:15 Dose: 40 mg Saccharomyces Boulardii (Florastor) 250 mg PO BID [facility] Last Admin: 02/07/18 09:15 Dose: 250 mg Tramadol HCl (Ultram) 50 mg PO Q6H PRN PRN Reason: Pain, moderate (4-7) - Labs Labs: 02/06/18 06:15 02/06/18 06:15 PT 13.2 SECONDS (9.7-12.2) H 02/06/18 06:15 INR 1.2 02/06/18 06:15 APTT 31 SECONDS (21-34) 02/06/18 06:15 - Constitutional Appears: Well, Non-toxic, No Acute Distress - Head Exam Head Exam: ATRAUMATIC, NORMOCEPHALIC - Extremities Exam Additional comments: Left LE focused exam: Vasc: DP/PT pulses non-palpable, Cap refill delayed > 3 sec in all digits, Temp gradient warm to cool. No edema. Neuro: Gross and protective sensation intact. Derm: Surgical incision site appears clean, dry, well coapted, no sutures remain , there is no evidence of wound dehiscence, no malodor, no drainage, No clinical signs of active bacterial infection noted. rtho: No pain on palpation at the surgical site. Partially amputated L hallux is noted. 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 Logan Left hallux dressed using betadine, DSD and kerlix Patient is stable from podiatry standpoint Podiatry will continue to follow in house
[2018-02-08] MEDS: Meropenem 500 MG in Sodium Chloride 0.9% 100 ML IVPB SCH ×2 (01:00→13:28)
[2018-02-08] MEDS: Albuterol-Ipratrop 3 mg / 0.5 (3 ml) UD INH SCH ×3 (01:40→13:16)
[2018-02-08] MEDS: (Novolog) Insulin Aspart, Recombinant 100 u/ml 10 ml vial SC SCH ×4 (07:30→22:10)
--- NOTE | 2018-02-08 07:34 | CP.PCM.PN ---
Subjective - Date & Time of Evaluation Date of Evaluation: 02/08/18 Time of Evaluation: 06:25 - Subjective Subjective: General Surgery Progress Note for Dr. Haro 62M seen and examined this AM. Pt is resting comfortably in bed. No acute events overnight. C/o left arm pain distal to AVF with movement and difficulty lifting arm. Doppler US done at bedside showed biphasic waves in the left ulnar and radial artery. Has not ambulated much since post-op. Denies f/c, n/v/d, SOB , CP, or urinary symptoms. Objective - Vital Signs/Intake and Output Vital Signs (last 24 hours): Temp Pulse Resp BP Pulse Ox 98.6 F 66 20 129/63 100 02/08/18 07:26 02/08/18 07:26 02/08/18 07:26 02/08/18 07:26 02/08/18 07:26 Intake and Output: 02/08/18 02/08/18 06:59 18:59 Intake Total 1200 Output Total 100 Balance 1100 - Medications Medications: Current Medications Acetaminophen (Tylenol 325mg Tab) 650 mg PO Q4 [facility] Last Admin: 01/30/18 16:12 Dose: Not Given Albuterol/Ipratropium (Duoneb 3 Mg/0.5 Mg (3 Ml) Ud) 3 ml INH RQ6 [facility] Last Admin: 02/08/18 07:31 Dose: 3 ml Amlodipine Besylate (Norvasc) 10 mg PO DAILY [facility] Last Admin: 02/07/18 09:17 Dose: Not Given Carvedilol (Coreg) 12.5 mg PO BID [facility] Last Admin: 02/07/18 18:08 Dose: 12.5 mg Epoetin Alexandr (Procrit) 10,000 unit IV TTS [facility] Heparin Sodium (Porcine) (Heparin) 5,000 units SC Q12 [facility] Last Admin: 02/07/18 22:08 Dose: 5,000 units Hydralazine HCl (Apresoline) 50 mg PO Q8 [facility] Last Admin: 02/08/18 05:34 Dose: 50 mg Hydromorphone HCl (Dilaudid) 0.5 mg IVP Q4H PRN PRN Reason: Pain, moderate (4-7) Last Admin: 02/07/18 01:27 Dose: 0.5 mg Tigecycline 50 mg/ Sodium (Chloride) 100 mls @ 100 mls/hr IVPB Q12H [facility] PRN Reason: Protocol Last Admin: 02/08/18 05:34 Dose: 100 mls/hr Meropenem 500 mg/ Sodium (Chloride) 100 mls @ 100 mls/hr IVPB Q12H [facility] PRN Reason: Protocol Last Admin: 02/08/18 01:00 Dose: 100 mls/hr Insulin Aspart (Novolog) 0 unit SC ACHS [facility] PRN Reason: Protocol Last Admin: 02/07/18 21:09 Dose: Not Given Pantoprazole Sodium (Protonix Ec Tab) 40 mg PO DAILY [facility] Last Admin: 02/07/18 09:15 Dose: 40 mg Saccharomyces Boulardii (Florastor) 250 mg PO BID [facility] Last Admin: 02/07/18 18:08 Dose: 250 mg Tramadol HCl (Ultram) 50 mg PO Q6H PRN PRN Reason: Pain, moderate (4-7) - Labs Labs: 02/06/18 06:15 02/06/18 06:15 PT 13.2 SECONDS (9.7-12.2) H 02/06/18 06:15 INR 1.2 02/06/18 06:15 APTT 31 SECONDS (21-34) 02/06/18 06:15 - Constitutional Appears: Well - Head Exam Head Exam: ATRAUMATIC, NORMAL INSPECTION, NORMOCEPHALIC - Eye Exam Eye Exam: EOMI, Normal appearance, PERRL - Neck Exam Neck Exam: Full ROM, Normal Inspection. absent: Lymphadenopathy - Respiratory Exam Respiratory Exam: Clear to Ausculation Bilateral, NORMAL BREATHING PATTERN - Cardiovascular Exam Cardiovascular Exam: REGULAR RHYTHM, +S1, +S2. absent: Murmur - GI/Abdominal Exam GI & Abdominal Exam: Soft, Normal Bowel Sounds. absent: Tenderness - Extremities Exam Additional comments: Left arm AVF covered with clean, dry, intact dressing Limited ROM of left arm Swelling of left arm distally palpable thrill - Skin Skin Exam: Dry, Intact, Normal Color, Warm Assessment and Plan - Assessment and Plan (Free Text) Assessment: 62M s/p L AVF POD2 Plan: left limb precautions monitoring ROM and elevate the arm c/w pain control recommend PT further recs per Dr. Estrellita Robles PGY1
--- NOTE | 2018-02-08 07:38 | CP.PCM.PN ---
Subjective - Date & Time of Evaluation Date of Evaluation: 02/08/18 Time of Evaluation: 07:38 - Subjective Subjective: Medicine progress note for Dr. Deluna's service: Patient seen and examined. Patient status post left bidirectional bracial artery to antecubital vein fistula on 02/06/18. Patient to have dialysis today. Patient less dyspneic today. Patient had Tmax 100.4 on 02/07/18. Objective - Vital Signs/Intake and Output Vital Signs (last 24 hours): Temp Pulse Resp BP Pulse Ox 98.6 F 66 20 129/63 100 02/08/18 07:26 02/08/18 07:26 02/08/18 07:26 02/08/18 07:26 02/08/18 07:26 Intake and Output: 02/08/18 02/08/18 06:59 18:59 Intake Total 1200 Output Total 100 Balance 1100 - Medications Medications: Current Medications Acetaminophen (Tylenol 325mg Tab) 650 mg PO Q4 [facility] Last Admin: 01/30/18 16:12 Dose: Not Given Albuterol/Ipratropium (Duoneb 3 Mg/0.5 Mg (3 Ml) Ud) 3 ml INH RQ6 [facility] Last Admin: 02/08/18 07:31 Dose: 3 ml Amlodipine Besylate (Norvasc) 10 mg PO DAILY [facility] Last Admin: 02/07/18 09:17 Dose: Not Given Carvedilol (Coreg) 12.5 mg PO BID [facility] Last Admin: 02/07/18 18:08 Dose: 12.5 mg Epoetin Alexandr (Procrit) 10,000 unit IV TTS [facility] Heparin Sodium (Porcine) (Heparin) 5,000 units SC Q12 [facility] Last Admin: 02/07/18 22:08 Dose: 5,000 units Hydralazine HCl (Apresoline) 50 mg PO Q8 [facility] Last Admin: 02/08/18 05:34 Dose: 50 mg Hydromorphone HCl (Dilaudid) 0.5 mg IVP Q4H PRN PRN Reason: Pain, moderate (4-7) Last Admin: 02/07/18 01:27 Dose: 0.5 mg Tigecycline 50 mg/ Sodium (Chloride) 100 mls @ 100 mls/hr IVPB Q12H [facility] PRN Reason: Protocol Last Admin: 02/08/18 05:34 Dose: 100 mls/hr Meropenem 500 mg/ Sodium (Chloride) 100 mls @ 100 mls/hr IVPB Q12H [facility]IA PRN Reason: Protocol Last Admin: 02/08/18 01:00 Dose: 100 mls/hr Insulin Aspart (Novolog) 0 unit SC ACHS DIA PRN Reason: Protocol Last Admin: 02/07/18 21:09 Dose: Not Given Pantoprazole Sodium (Protonix Ec Tab) 40 mg PO DAILY [facility] Last Admin: 02/07/18 09:15 Dose: 40 mg Saccharomyces Boulardii (Florastor) 250 mg PO BID [facility] Last Admin: 02/07/18 18:08 Dose: 250 mg Tramadol HCl (Ultram) 50 mg PO Q6H PRN PRN Reason: Pain, moderate (4-7) - Labs Labs: 02/06/18 06:15 02/06/18 06:15 PT 13.2 SECONDS (9.7-12.2) H 02/06/18 06:15 INR 1.2 02/06/18 06:15 APTT 31 SECONDS (21-34) 02/06/18 06:15 - Constitutional Appears: No Acute Distress - Head Exam Head Exam: ATRAUMATIC, NORMOCEPHALIC - Eye Exam Eye Exam: EOMI - ENT Exam ENT Exam: Mucous Membranes Moist - Respiratory Exam Respiratory Exam: Decreased Breath Sounds, Rales - Cardiovascular Exam Cardiovascular Exam: +S1, +S2 - GI/Abdominal Exam GI & Abdominal Exam: Soft, Normal Bowel Sounds. absent: Tenderness - Extremities Exam Additional comments: left upper extremity AVF site wrapped in clean gauze. Auscultatory bruit present b/l lower extremities with 1+ pitting edema - Neurological Exam Neurological Exam: Alert, Awake - Skin Skin Exam: Warm Assessment and Plan - Assessment and Plan (Free Text) Assessment: ARF 02/08/18: Patient status post left bidirectional brachial artery to antecubital vein fistula placement with Dr. Haro on 02/06/1802/01: will check 24 hour urine protein per nephrology 01/31: patient s/p permacath placement with Dr. Haro 01/30. Received dialysis late yesterday. Repeat dialysis this afternoon 01/31. Will have HD MWF. 02/06/18: s/p Left Bidirectional Brachial Artery to Antecubital Vein Fistula Dr. 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 All cultures negative. Pt to have Ceretec WBC scan per Dr. Blancas. 02/05: Afebrile WBC 9.8 No bands Blood cultures from 01/31 no growth at 5 days Patient switched to Tigecycline and Meropenem over the weekend 02/02: Afebrile overnight WBC 9 Repeat blood culture from 01/31 negative after 24 hours Continue with Vancomycin and Meropenem. Zyvox and Aztreonem discontinued on per ID Follow up MRI to r/o osteomyelitis 02/01: patient febrile overnight again, Tmax 101 WBC 9.5 antibiotic regimen adjusted by Dr. Blancas: aztreonam 1g q24, vancomycin added on dialysis days (MWF), meropenem q12 IVPB repeat blood culture ordered as well as stool for ova and parasite due to eosinophilia 01/31: Febrile overnight at 102.6F. Started Aztreonam 1Gm IVPB q24H. Currently on: Aztreonam 1Gm IVPB q24H (started 01/30) Zyvox 600mg PO BID (started 01/29) Meropenem 500mg IVPB Q12 (started 01/30) L foot xray 01/31- negative CT chest/abd/pelv 01/30- Bilateral pleural effusion with lower lobe subsegmental atelectasis. Chronic pancreatitis. Mildly dilated main pulmonary artery. Correlate for any history of pulmonary arterial hypertension. Thickened bladder wall. Possible artifact due to outlet obstruction or cystitis. Anasarca. See full report. 01/30: WBC 10.2 today. Last fever on 01/27. Dr. Blancas, ID, consulted- help appreciated SIRS criteria present on admission (01/25): Temperature 101.2F, HR 106 SOFA score approximately 9 (no ABG for PaO2) initial VBG lactate (01/25) 4.1, repeat 1.0 procalcitonin 5.74 suspected possible sources include: line infection from prior PICC line- culture from (01/25) negative bacteremia- blood culture negative after 4 days pneumonia- chest CT negative for infiltrate however patient was dyspneic on admission, sputum culture uncollected urine- (01/25) urine culture negative prior hallux amputation site- recent amputation for osteomyelitis and was on IV abx prior to this admission. Podiatry team, Dr. Logan, consulted- recommendations appreciated patient on antibiotics: Tigecycline 50mg IVPB q12h (started 02/04) Meropenem 500mg IVPB q12h (started 02/04) patient previously on antibiotics: gentamicin 120mg x 1 dose (01/25) vancomycin x 1 dose (01/25) zosyn (01/25- 01/28) zyvox 600mg IVPB 12h (started 01/25) aztreonam 1gam IVPB q8h (started 01/28) medications adjusted due to kidney function Dyspnea (resolved) 02/05: ECHO - EF ~65%, large left pleural effusion, otherwise normal ECHO 02/02: patient underwent echo, follow up results 02/01: chest xray with worsening pulmonary vascular congestion, will check echo CT Chest: pulmonary vascular congestion with small to moderate bilateral pleural effusions and subjacent atelectasis (see full report) continue lasix 80mg IVP daily BNP 9070 no echocardiogram in our EMR Transaminitis 02/05: continue downtrending AST 29/ALT 53, Alk Phos 160 02/02: continue downtrending AST/ALT 60/85 today 01/31: downtrending LFTs after stopping Tylenol. Continue Ultram 50mg PO q6H PRN pain. 01/30: AST stable 142. ALT 129 and AlkP 190 uptrending. Stop Tylenol PRN. Start Ultram 50mg PO q6H PRN pain. AST/ ALT/ Alk phos increasing, today 175/ 121/180 T. Bili not elevated at 0.7 hepatitis A & B negative Hepatitis C negative RPR, HIV negative HTN hydralazine 50mg PO Q8h norvasc 10mg PO daily DM ISS Accucheck ACHS A1c 7.0 in 12/2017 holding all PO meds currently due to renal function left hallux amputation site bandaged Left hallux amputation procedure performed on last admission Dr. Logan, podiatry, following while patient in-house Prophylactic measure heparin 5,000unit Q12h (renal dosing) protonix 40mg IVP daily All medical management as per Dr. Deluna
--- NOTE | 2018-02-08 09:20 | CP.PCM.PN ---
Subjective - Date & Time of Evaluation Date of Evaluation: 02/08/18 Time of Evaluation: 09:17 - Subjective Subjective: alert, seen at dialysis BP controlled To UF 3000ml more alert, less swollen possible nuclear study today awaiting AV access Objective - Vital Signs/Intake and Output Vital Signs (last 24 hours): Temp Pulse Resp BP Pulse Ox 98.6 F 66 20 129/63 100 02/08/18 07:26 02/08/18 07:26 02/08/18 07:26 02/08/18 07:26 02/08/18 07:26 Intake and Output: 02/08/18 02/08/18 06:59 18:59 Intake Total 1200 Output Total 100 Balance 1100 - Medications Medications: Current Medications Acetaminophen (Tylenol 325mg Tab) 650 mg PO Q4 [facility] Last Admin: 01/30/18 16:12 Dose: Not Given Albuterol/Ipratropium (Duoneb 3 Mg/0.5 Mg (3 Ml) Ud) 3 ml INH RQ6 [facility] Last Admin: 02/08/18 07:31 Dose: 3 ml Amlodipine Besylate (Norvasc) 10 mg PO DAILY [facility] Last Admin: 02/07/18 09:17 Dose: Not Given Carvedilol (Coreg) 12.5 mg PO BID [facility] Last Admin: 02/07/18 18:08 Dose: 12.5 mg Epoetin Alexandr (Procrit) 10,000 unit IV TTS [facility] Heparin Sodium (Porcine) (Heparin) 5,000 units SC Q12 [facility] Last Admin: 02/07/18 22:08 Dose: 5,000 units Heparin Sodium (Porcine) (Heparin) 1,000 units IVP ONCE [facility] Hydralazine HCl (Apresoline) 50 mg PO Q8 [facility] Last Admin: 02/08/18 05:34 Dose: 50 mg Hydromorphone HCl (Dilaudid) 0.5 mg IVP Q4H PRN PRN Reason: Pain, moderate (4-7) Last Admin: 02/07/18 01:27 Dose: 0.5 mg Tigecycline 50 mg/ Sodium (Chloride) 100 mls @ 100 mls/hr IVPB Q12H [facility] PRN Reason: Protocol Last Admin: 02/08/18 05:34 Dose: 100 mls/hr Meropenem 500 mg/ Sodium (Chloride) 100 mls @ 100 mls/hr IVPB Q12H [facility] PRN Reason: Protocol Last Admin: 02/08/18 01:00 Dose: 100 mls/hr Insulin Aspart (Novolog) 0 unit SC ACHS [facility] PRN Reason: Protocol Last Admin: 02/07/18 21:09 Dose: Not Given Pantoprazole Sodium (Protonix Ec Tab) 40 mg PO DAILY [facility] Last Admin: 02/07/18 09:15 Dose: 40 mg Saccharomyces Boulardii (Florastor) 250 mg PO BID [facility] Last Admin: 02/07/18 18:08 Dose: 250 mg Tramadol HCl (Ultram) 50 mg PO Q6H PRN PRN Reason: Pain, moderate (4-7) - Labs Labs: 02/06/18 06:15 02/06/18 06:15 PT 13.2 SECONDS (9.7-12.2) H 02/06/18 06:15 INR 1.2 02/06/18 06:15 APTT 31 SECONDS (21-34) 02/06/18 06:15 - Constitutional Appears: No Acute Distress, Chronically Ill - Head Exam Head Exam: ATRAUMATIC, NORMAL INSPECTION - Eye Exam Eye Exam: EOMI, Normal appearance - Neck Exam Neck Exam: Normal Inspection. absent: Tenderness - Respiratory Exam Respiratory Exam: Clear to Ausculation Bilateral, NORMAL BREATHING PATTERN - Cardiovascular Exam Cardiovascular Exam: REGULAR RHYTHM, +S1 - GI/Abdominal Exam GI & Abdominal Exam: Soft. absent: Tenderness - Extremities Exam Extremities Exam: Normal Inspection. absent: Tenderness - Neurological Exam Neurological Exam: Alert, CN II-XII Intact - Skin Skin Exam: Dry, Warm Assessment and Plan (1) MANDY (acute kidney injury) Status: Acute (2) Type 2 diabetes mellitus with diabetic nephropathy Status: Acute (3) Fever Status: Acute (4) Diabetes 1.5, managed as type 2 Status: Acute (5) Nonhealing ulcer of left lower extremity Status: Acute (6) CHF (congestive heart failure) Status: Acute (7) ESRD (end stage renal disease) Status: Acute - Assessment and Plan (Free Text) Plan: Same meds Monitor low Hg on ESAs continue wound care further wound testing as per surgery dialysis TTS AV access eventually
[2018-02-08 09:54] LABS: ALB/GLOB RATIO 0.8 (1.0-2.1); ALBUMIN 2.6 g/dL (3.5-5.0); CALCIUM 6.9 mg/dl (8.6-10.4)
[2018-02-08 09:55] LABS: MEAN CORPUSCULAR HEMOGLOBIN 31.3 pg (27.0-31.0); MEAN CORPUSCULAR HGB CONC 35.3 g/dL (33.0-37.0); MEAN PLATELET VOLUME 7.7 fL (7.2-11.7); RBC 2.2 Mil/uL (4.40-5.90); RED CELL DISTRIBUTION WIDTH 14.4 % (11.5-14.5); WHITE BLOOD COUNT 6.6 K/uL (4.8-10.8)
[2018-02-08 10:00] LABS: HEMOGLOBIN 6.9 g/dL (12.0-18.0); MEAN CELL VOLUME 86.4 fL (80.0-94.0)
[2018-02-08 10:40] LABS: HEMOGLOBIN 7.2 g/dL (12.0-18.0); MEAN CORPUSCULAR HGB CONC 34.9 g/dL (33.0-37.0); MEAN PLATELET VOLUME 7.5 fL (7.2-11.7); RBC 2.41 Mil/uL (4.40-5.90); RED CELL DISTRIBUTION WIDTH 14.2 % (11.5-14.5)
[2018-02-08 10:58] LABS: BASO # 0.1 K/uL (0.0-0.2); EOS # 0.1 K/uL (0.0-0.7); LYMPH # 1.9 K/uL (1.0-4.3); MONO # 1.1 K/uL (0.0-0.8); NEUT # 3.4 K/uL (1.8-7.0)
[2018-02-08] MEDS: Epoetin Alfa 10,000 unit/ml Dialysis IV SCH (10:58)
--- NOTE | 2018-02-08 11:41 | CP.PCM.PN ---
Subjective - Date & Time of Evaluation Date of Evaluation: 02/08/18 Time of Evaluation: 11:38 - Subjective Subjective: Podiatry Progress Note - Dr. Logan 62 year old male patient who is 5 weeks s/p left foot partial hallux amputation seen and evaluated at bedside. Patient seen in dialysis. Patient is AAOx3 and in NAD. Patient is resting in bed comfortably. Patient denies any other pedal complaints at this time. Patient denies N/V/F/C/SOB/CP/pain on posterior calf since last night. Objective - Vital Signs/Intake and Output Vital Signs (last 24 hours): Temp Pulse Resp BP Pulse Ox 98.4 F 65 18 149/70 99 02/08/18 09:10 02/08/18 09:10 02/08/18 09:10 02/08/18 11:10 02/08/18 09:10 Intake and Output: 02/08/18 02/08/18 06:59 18:59 Intake Total 1200 Output Total 100 Balance 1100 - Medications Medications: Current Medications Acetaminophen (Tylenol 325mg Tab) 650 mg PO Q4 [facility] Last Admin: 01/30/18 16:12 Dose: Not Given Albuterol/Ipratropium (Duoneb 3 Mg/0.5 Mg (3 Ml) Ud) 3 ml INH RQ6 [facility] Last Admin: 02/08/18 07:31 Dose: 3 ml Amlodipine Besylate (Norvasc) 10 mg PO DAILY [facility] Last Admin: 02/07/18 09:17 Dose: Not Given Carvedilol (Coreg) 12.5 mg PO BID [facility] Last Admin: 02/07/18 18:08 Dose: 12.5 mg Epoetin Alexandr (Procrit) 10,000 unit IV TTS [facility] Last Admin: 02/08/18 10:58 Dose: 10,000 unit Heparin Sodium (Porcine) (Heparin) 5,000 units SC Q12 [facility] Last Admin: 02/07/18 22:08 Dose: 5,000 units Heparin Sodium (Porcine) (Heparin) 1,000 units IVP ONCE [facility] Hydralazine HCl (Apresoline) 50 mg PO Q8 [facility] Last Admin: 02/08/18 05:34 Dose: 50 mg Hydromorphone HCl (Dilaudid) 0.5 mg IVP Q4H PRN PRN Reason: Pain, moderate (4-7) Last Admin: 02/07/18 01:27 Dose: 0.5 mg Tigecycline 50 mg/ Sodium (Chloride) 100 mls @ 100 mls/hr IVPB Q12H [facility] PRN Reason: Protocol Last Admin: 02/08/18 05:34 Dose: 100 mls/hr Meropenem 500 mg/ Sodium (Chloride) 100 mls @ 100 mls/hr IVPB Q12H [facility] PRN Reason: Protocol Last Admin: 02/08/18 01:00 Dose: 100 mls/hr Insulin Aspart (Novolog) 0 unit SC ACHS [facility] PRN Reason: Protocol Last Admin: 02/07/18 21:09 Dose: Not Given Pantoprazole Sodium (Protonix Ec Tab) 40 mg PO DAILY [facility] Last Admin: 02/07/18 09:15 Dose: 40 mg Saccharomyces Boulardii (Florastor) 250 mg PO BID [facility] Last Admin: 02/07/18 18:08 Dose: 250 mg Tramadol HCl (Ultram) 50 mg PO Q6H PRN PRN Reason: Pain, moderate (4-7) - Labs Labs: 02/08/18 10:37 02/08/18 09:26 PT 13.2 SECONDS (9.7-12.2) H 02/06/18 06:15 INR 1.2 02/06/18 06:15 APTT 31 SECONDS (21-34) 02/06/18 06:15 - Constitutional Appears: Well, Non-toxic, No Acute Distress - Extremities Exam Additional comments: Left LE focused exam: Vasc: DP/PT pulses non-palpable, Cap refill delayed > 3 sec in all digits, Temp gradient warm to cool. No edema. Neuro: Gross and protective sensation intact. Derm: Surgical incision site appears clean, dry, well coapted, no sutures remain , there is no evidence of wound dehiscence, no malodor, no drainage, No clinical signs of active bacterial infection noted. rtho: No pain on palpation at the surgical site. Partially amputated L hallux is noted. 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 Logan Left hallux dressed using betadine, DSD and kerlix Patient is stable from podiatry standpoint Podiatry will continue to follow in house
[2018-02-08] MEDS: Saccharomyces Boulardi 250 mg Cap PO SCH ×2 (12:00→17:25)
[2018-02-08] MEDS: Pantoprazole 40 mg EC Tab PO SCH (12:01)
--- NOTE | 2018-02-08 13:05 | CP.PCM.PN ---
Subjective - Date & Time of Evaluation Date of Evaluation: 02/08/18 Time of Evaluation: 01:00 - Subjective Subjective: dictated Objective - Vital Signs/Intake and Output Vital Signs (last 24 hours): Temp Pulse Resp BP Pulse Ox 97.7 F 72 18 136/76 99 02/08/18 12:36 02/08/18 12:36 02/08/18 12:36 02/08/18 12:36 02/08/18 09:10 Intake and Output: 02/08/18 02/08/18 06:59 18:59 Intake Total 1200 325 Output Total 100 Balance 1100 325 - Medications Medications: Current Medications Acetaminophen (Tylenol 325mg Tab) 650 mg PO Q4 [facility] Last Admin: 01/30/18 16:12 Dose: Not Given Albuterol/Ipratropium (Duoneb 3 Mg/0.5 Mg (3 Ml) Ud) 3 ml INH RQ6 [facility] Last Admin: 02/08/18 07:31 Dose: 3 ml Amlodipine Besylate (Norvasc) 10 mg PO DAILY [facility] Last Admin: 02/08/18 12:01 Dose: Not Given Carvedilol (Coreg) 12.5 mg PO BID [facility] Last Admin: 02/08/18 12:00 Dose: Not Given Epoetin Alexandr (Procrit) 10,000 unit IV TTS [facility] Last Admin: 02/08/18 10:58 Dose: 10,000 unit Heparin Sodium (Porcine) (Heparin) 5,000 units SC Q12 [facility] Last Admin: 02/08/18 12:01 Dose: Not Given Heparin Sodium (Porcine) (Heparin) 1,000 units IVP ONCE [facility] Hydralazine HCl (Apresoline) 50 mg PO Q8 [facility] Last Admin: 02/08/18 05:34 Dose: 50 mg Hydromorphone HCl (Dilaudid) 0.5 mg IVP Q4H PRN PRN Reason: Pain, moderate (4-7) Last Admin: 02/07/18 01:27 Dose: 0.5 mg Tigecycline 50 mg/ Sodium (Chloride) 100 mls @ 100 mls/hr IVPB Q12H [facility] PRN Reason: Protocol Last Admin: 02/08/18 05:34 Dose: 100 mls/hr Meropenem 500 mg/ Sodium (Chloride) 100 mls @ 100 mls/hr IVPB Q12H [facility] PRN Reason: Protocol Last Admin: 02/08/18 01:00 Dose: 100 mls/hr Insulin Aspart (Novolog) 0 unit SC ACHS [facility] PRN Reason: Protocol Last Admin: 02/08/18 07:30 Dose: Not Given Pantoprazole Sodium (Protonix Ec Tab) 40 mg PO DAILY [facility] Last Admin: 02/08/18 12:01 Dose: Not Given Saccharomyces Boulardii (Florastor) 250 mg PO BID [facility] Last Admin: 02/08/18 12:00 Dose: Not Given Tramadol HCl (Ultram) 50 mg PO Q6H PRN PRN Reason: Pain, moderate (4-7) - Labs Labs: 02/08/18 10:37 02/08/18 09:26 PT 13.2 SECONDS (9.7-12.2) H 02/06/18 06:15 INR 1.2 02/06/18 06:15 APTT 31 SECONDS (21-34) 02/06/18 06:15
--- NOTE | 2018-02-08 15:39 | RAD ---
HISTORY: pleural effusion COMPARISON: No prior. FINDINGS: LUNGS: Vascular congestion. Bibasilar atelectasis. PLEURA: Decreased size of bilateral pleural effusions. No pneumothorax apparent. CARDIOVASCULAR: Normal. OSSEOUS STRUCTURES: Proximal humeral deformity redemonstrated. Unchanged. VISUALIZED UPPER ABDOMEN: Normal. OTHER FINDINGS: Right internal jugular access tunneled hemodialysis catheter, unchanged. IMPRESSION: Pulmonary vascular congestion with decreased size of residual small bilateral pleural effusions. No other significant interval changes
--- NOTE | 2018-02-08 16:40 | CP.PCM.PN ---
Subjective - Date & Time of Evaluation Date of Evaluation: 02/08/18 Time of Evaluation: 08:00 - Subjective Subjective: clinically same Objective - Vital Signs/Intake and Output Vital Signs (last 24 hours): Temp Pulse Resp BP Pulse Ox 99 F 71 20 146/68 100 02/08/18 15:25 02/08/18 15:25 02/08/18 15:25 02/08/18 15:25 02/08/18 15:25 Intake and Output: 02/08/18 02/08/18 06:59 18:59 Intake Total 1200 805 Output Total 100 0 Balance 1100 805 - Medications Medications: Current Medications Acetaminophen (Tylenol 325mg Tab) 650 mg PO Q4 [facility] Last Admin: 01/30/18 16:12 Dose: Not Given Albumin Human (Albumin Human 25% (12.5 Gm/50 Ml)) 12.5 gm IV Q12H [facility] Stop: 02/11/18 16:01 Albuterol/Ipratropium (Duoneb 3 Mg/0.5 Mg (3 Ml) Ud) 3 ml INH RQ6 [facility] Last Admin: 02/08/18 13:16 Dose: 3 ml Amlodipine Besylate (Norvasc) 10 mg PO DAILY [facility] Last Admin: 02/08/18 12:01 Dose: Not Given Carvedilol (Coreg) 12.5 mg PO BID [facility] Last Admin: 02/08/18 12:00 Dose: Not Given Epoetin Alexandr (Procrit) 10,000 unit IV TTS [facility] Last Admin: 02/08/18 10:58 Dose: 10,000 unit Heparin Sodium (Porcine) (Heparin) 5,000 units SC Q12 [facility] Last Admin: 02/08/18 12:01 Dose: Not Given Heparin Sodium (Porcine) (Heparin) 1,000 units IVP ONCE [facility] Hydralazine HCl (Apresoline) 50 mg PO Q8 [facility] Last Admin: 02/08/18 13:28 Dose: 50 mg Hydromorphone HCl (Dilaudid) 0.5 mg IVP Q4H PRN PRN Reason: Pain, moderate (4-7) Last Admin: 02/07/18 01:27 Dose: 0.5 mg Tigecycline 50 mg/ Sodium (Chloride) 100 mls @ 100 mls/hr IVPB Q12H [facility] PRN Reason: Protocol Last Admin: 02/08/18 05:34 Dose: 100 mls/hr Meropenem 500 mg/ Sodium (Chloride) 100 mls @ 100 mls/hr IVPB Q12H [facility] PRN Reason: Protocol Last Admin: 02/08/18 13:28 Dose: 100 mls/hr Insulin Aspart (Novolog) 0 unit SC ACHS [facility] PRN Reason: Protocol Last Admin: 02/08/18 13:28 Dose: 3 units Pantoprazole Sodium (Protonix Ec Tab) 40 mg PO DAILY [facility] Last Admin: 02/08/18 12:01 Dose: Not Given Saccharomyces Boulardii (Florastor) 250 mg PO BID [facility] Last Admin: 02/08/18 12:00 Dose: Not Given Tramadol HCl (Ultram) 50 mg PO Q6H PRN PRN Reason: Pain, moderate (4-7) - Labs Labs: 02/08/18 10:37 02/08/18 09:26 PT 13.2 SECONDS (9.7-12.2) H 02/06/18 06:15 INR 1.2 02/06/18 06:15 APTT 31 SECONDS (21-34) 02/06/18 06:15 - Constitutional Appears: Well - Head Exam Head Exam: ATRAUMATIC, NORMAL INSPECTION, NORMOCEPHALIC - Eye Exam Eye Exam: EOMI, Normal appearance, PERRL Pupil Exam: NORMAL ACCOMODATION, PERRL - ENT Exam ENT Exam: Mucous Membranes Moist, Normal Exam - Neck Exam Neck Exam: Full ROM, Normal Inspection. absent: Lymphadenopathy - Respiratory Exam Respiratory Exam: Decreased Breath Sounds - Cardiovascular Exam Cardiovascular Exam: REGULAR RHYTHM, +S1, +S2 - GI/Abdominal Exam GI & Abdominal Exam: Soft, Diminished Bowel Sounds - Rectal Exam Rectal Exam: Deferred Assessment and Plan - Assessment and Plan (Free Text) Plan: Hemodialysis Ceretec scan scan vs mri d/w Pulmonary consult Hematology consultations Tigecycline Hemodialysis Meropenem
[2018-02-08] MEDS: Albumin Human 25% (12.5 gm/50 ml) IV SCH (18:43)
--- NOTE | 2018-02-08 21:20 | PN ---
DATE: 02/08/2018 SUBJECTIVE: The patient was getting respiratory treatments when I saw him today, but he is waiting for his arm to get better because it remains swollen, and he does not give any complains, however. OBJECTIVE: GENERAL: He is awake and alert. His legs are still swollen, but the redness has decreased. He keeps something bundled up in several clothes. VITAL SIGNS: T-max is 97.9, pulse 70, blood pressure 139/74, respirations are 20. HEENT: Head is atraumatic and normocephalic. NECK: Supple. LUNGS: Clear. No crackles or rales present. HEART: S1, S2 is regular. ABDOMEN: Soft, nontender. EXTREMITIES: Have edema plus cellulitis is decreasing. Edema is present bilaterally. Left arm, he had a fistula placed which has dressing at this time and still remains with swelling. He remains on meropenem and Tygacil at this time. We will continue present treatment. His labs show white count is 7, hemoglobin 7.2, hematocrit 20.8, platelet count is 313. Hemoglobin appears to be low. Sodium is 130, potassium 4.3, chlorides are 98, CO2 is 22, BUN is 14, creatinine again is 3.8, so it seems the creatinine is not coming down, and he is also diabetic. Cultures are all negative so far, and he has not had any fever. His last was actually 99.8 at the middle of the night. IMPRESSION: He did come in with fevers and chills. Initially, we took out the PICC line, and he did have partial amputation of his toe and is still being followed by the Podiatry and has developed acute renal failure, most likely due to infection, sepsis as well as medications, and he is diabetic and now on dialysis and has a new AV fistula, and I am waiting to get a Ceretec scan done to make sure he has whatever source because we kept on having fevers for the longest and now he is on Merrem and Tygacil. We will keep him on that as he just had a fistula placed, and we are waiting for the Ceretec scan, and he will also need a spot for dialysis as outpatient. Tiffany Blancas MD [facility] # [id number]
[2018-02-09] MEDS: Albuterol-Ipratrop 3 mg / 0.5 (3 ml) UD INH SCH ×4 (02:00→20:02)
[2018-02-09] MEDS: Meropenem 500 MG in Sodium Chloride 0.9% 100 ML IVPB SCH ×2 (02:16→13:15)
[2018-02-09] MEDS: Albumin Human 25% (12.5 gm/50 ml) IV SCH ×2 (04:48→18:15)
[2018-02-09] MEDS: (Novolog) Insulin Aspart, Recombinant 100 u/ml 10 ml vial SC SCH ×4 (08:05→21:47)
[2018-02-09 08:18] LABS: HEMOGLOBIN 8.2 g/dL (12.0-18.0); MEAN CELL VOLUME 85.9 fL (80.0-94.0); MEAN CORPUSCULAR HEMOGLOBIN 30.3 pg (27.0-31.0); MEAN CORPUSCULAR HGB CONC 35.3 g/dL (33.0-37.0); RBC 2.69 Mil/uL (4.40-5.90); RED CELL DISTRIBUTION WIDTH 14.1 % (11.5-14.5); WHITE BLOOD COUNT 7.3 K/uL (4.8-10.8)
[2018-02-09 08:42] LABS: ALB/GLOB RATIO 0.9 (1.0-2.1); ALBUMIN 2.9 g/dL (3.5-5.0); CALCIUM 7.3 mg/dl (8.6-10.4)
--- NOTE | 2018-02-09 08:44 | CP.PCM.PN ---
Subjective - Date & Time of Evaluation Date of Evaluation: 02/09/18 Time of Evaluation: 06:05 - Subjective Subjective: General Surgery Progress Note for Dr. Haro 62M seen and examined this AM. Pt is resting comfortably in bed. No acute events overnight. Improving left arm pain distal to AVF. Minimal ambulation. Pt in isolation to r/o TB. Denies f/c, n/v/d, SOB, cough, CP, or urinary symptoms. Objective - Vital Signs/Intake and Output Vital Signs (last 24 hours): Temp Pulse Resp BP Pulse Ox 98.1 F 62 20 144/67 99 02/09/18 08:14 02/09/18 08:14 02/09/18 08:14 02/09/18 08:14 02/09/18 08:14 Intake and Output: 02/09/18 02/09/18 06:59 18:59 Intake Total 800 Balance 800 - Medications Medications: Current Medications Acetaminophen (Tylenol 325mg Tab) 650 mg PO Q4 [facility] Last Admin: 01/30/18 16:12 Dose: Not Given Albumin Human (Albumin Human 25% (12.5 Gm/50 Ml)) 12.5 gm IV Q12H [facility] Stop: 02/11/18 16:01 Last Admin: 02/09/18 04:48 Dose: 12.5 gm Albuterol/Ipratropium (Duoneb 3 Mg/0.5 Mg (3 Ml) Ud) 3 ml INH RQ6 [facility] Last Admin: 02/09/18 07:50 Dose: 3 ml Amlodipine Besylate (Norvasc) 10 mg PO DAILY [facility] Last Admin: 02/08/18 12:01 Dose: Not Given Carvedilol (Coreg) 12.5 mg PO BID [facility] Last Admin: 02/08/18 17:25 Dose: 12.5 mg Epoetin Alexandr (Procrit) 10,000 unit IV TTS [facility] Last Admin: 02/08/18 10:58 Dose: 10,000 unit Heparin Sodium (Porcine) (Heparin) 5,000 units SC Q12 [facility] Last Admin: 02/08/18 21:32 Dose: 5,000 units Heparin Sodium (Porcine) (Heparin) 1,000 units IVP ONCE [facility] Hydralazine HCl (Apresoline) 50 mg PO Q8 [facility] Last Admin: 02/09/18 06:17 Dose: 50 mg Tigecycline 50 mg/ Sodium (Chloride) 100 mls @ 100 mls/hr IVPB Q12H [facility] PRN Reason: Protocol Last Admin: 02/09/18 05:45 Dose: 100 mls/hr Meropenem 500 mg/ Sodium (Chloride) 100 mls @ 100 mls/hr IVPB Q12H [facility] PRN Reason: Protocol Last Admin: 02/09/18 02:16 Dose: 100 mls/hr Insulin Aspart (Novolog) 0 unit SC ACHS DIA PRN Reason: Protocol Last Admin: 02/08/18 22:10 Dose: 2 units Pantoprazole Sodium (Protonix Ec Tab) 40 mg PO DAILY [facility] Last Admin: 02/08/18 12:01 Dose: Not Given Saccharomyces Boulardii (Florastor) 250 mg PO BID [facility] Last Admin: 02/08/18 17:25 Dose: 250 mg Tramadol HCl (Ultram) 50 mg PO Q6H PRN PRN Reason: Pain, moderate (4-7) - Labs Labs: 02/09/18 08:07 02/08/18 09:26 PT 13.2 SECONDS (9.7-12.2) H 02/06/18 06:15 INR 1.2 02/06/18 06:15 APTT 31 SECONDS (21-34) 02/06/18 06:15 - Constitutional Appears: Well - Head Exam Head Exam: ATRAUMATIC, NORMAL INSPECTION, NORMOCEPHALIC - Eye Exam Eye Exam: EOMI, Normal appearance - ENT Exam ENT Exam: Mucous Membranes Moist - Respiratory Exam Respiratory Exam: Clear to Ausculation Bilateral, NORMAL BREATHING PATTERN - Cardiovascular Exam Cardiovascular Exam: REGULAR RHYTHM, +S1, +S2. absent: Murmur - GI/Abdominal Exam GI & Abdominal Exam: Soft, Normal Bowel Sounds. absent: Tenderness - Extremities Exam Additional comments: L arm AVF site dressing c/d/i Palpable thrill L radial and ulnar artery pulses 1+ - Neurological Exam Neurological Exam: Alert, Awake - Psychiatric Exam Psychiatric exam: Normal Affect, Normal Mood - Skin Skin Exam: Dry, Intact, Normal Color, Warm Assessment and Plan - Assessment and Plan (Free Text) Assessment: 62M s/p L arm AVF POD3 Plan: left limb precautions monitoring ROM and elevate the arm c/w pain control recommend PT No further surgical intervention at this time Please reconsult as needed Elan Yehya PGY1
[2018-02-09] MEDS: Pantoprazole 40 mg EC Tab PO SCH (09:04)
[2018-02-09] MEDS: Saccharomyces Boulardi 250 mg Cap PO SCH ×2 (09:04→17:22)
--- NOTE | 2018-02-09 09:37 | CP.PCM.PN ---
Subjective - Date & Time of Evaluation Date of Evaluation: 02/09/18 Time of Evaluation: 09:37 - Subjective Subjective: Medicine progress note for Dr. Deluna's service: Patient seen and examined at bedside. Nursing reports no acute events overnight. POD #4, AVF on 02/06/18. Patient states he is breathing without difficulty and tolerated dialysis yesterday without complaints. Denies fever, chills overnight. Objective - Vital Signs/Intake and Output Vital Signs (last 24 hours): Temp Pulse Resp BP Pulse Ox 98.1 F 62 20 148/69 99 02/09/18 08:14 02/09/18 08:14 02/09/18 08:14 02/09/18 09:07 02/09/18 08:14 Intake and Output: 02/09/18 02/09/18 06:59 18:59 Intake Total 800 Balance 800 - Medications Medications: Current Medications Acetaminophen (Tylenol 325mg Tab) 650 mg PO Q4 [facility] Last Admin: 01/30/18 16:12 Dose: Not Given Albumin Human (Albumin Human 25% (12.5 Gm/50 Ml)) 12.5 gm IV Q12H [facility] Stop: 02/11/18 16:01 Last Admin: 02/09/18 04:48 Dose: 12.5 gm Albuterol/Ipratropium (Duoneb 3 Mg/0.5 Mg (3 Ml) Ud) 3 ml INH RQ6 [facility] Last Admin: 02/09/18 07:50 Dose: 3 ml Amlodipine Besylate (Norvasc) 10 mg PO DAILY [facility] Last Admin: 02/09/18 09:04 Dose: 10 mg Carvedilol (Coreg) 12.5 mg PO BID [facility] Last Admin: 02/09/18 09:07 Dose: 12.5 mg Epoetin Alexandr (Procrit) 10,000 unit IV TTS [facility] Last Admin: 02/08/18 10:58 Dose: 10,000 unit Heparin Sodium (Porcine) (Heparin) 5,000 units SC Q12 [facility] Last Admin: 02/08/18 21:32 Dose: 5,000 units Heparin Sodium (Porcine) (Heparin) 1,000 units IVP ONCE [facility]IA Hydralazine HCl (Apresoline) 50 mg PO Q8 [facility] Last Admin: 02/09/18 06:17 Dose: 50 mg Tigecycline 50 mg/ Sodium (Chloride) 100 mls @ 100 mls/hr IVPB Q12H [facility]IA PRN Reason: Protocol Last Admin: 02/09/18 05:45 Dose: 100 mls/hr Meropenem 500 mg/ Sodium (Chloride) 100 mls @ 100 mls/hr IVPB Q12H [facility]IA PRN Reason: Protocol Last Admin: 02/09/18 02:16 Dose: 100 mls/hr Insulin Aspart (Novolog) 0 unit SC ACHS DIA PRN Reason: Protocol Last Admin: 02/09/18 08:05 Dose: 3 units Pantoprazole Sodium (Protonix Ec Tab) 40 mg PO DAILY [facility] Last Admin: 02/09/18 09:04 Dose: 40 mg Saccharomyces Boulardii (Florastor) 250 mg PO BID [facility] Last Admin: 02/09/18 09:04 Dose: 250 mg Tramadol HCl (Ultram) 50 mg PO Q6H PRN PRN Reason: Pain, moderate (4-7) - Labs Labs: 02/09/18 08:07 02/09/18 08:07 PT 13.2 SECONDS (9.7-12.2) H 02/06/18 06:15 INR 1.2 02/06/18 06:15 APTT 31 SECONDS (21-34) 02/06/18 06:15 - Additional Findings Additional findings: - Constitutional Appears: No Acute Distress - Head Exam Head Exam: ATRAUMATIC, NORMOCEPHALIC - Eye Exam Eye Exam: EOMI - ENT Exam ENT Exam: Mucous Membranes Moist - Respiratory Exam Respiratory Exam: Decreased Breath Sounds, Rales - Cardiovascular Exam Cardiovascular Exam: +S1, +S2 - GI/Abdominal Exam GI & Abdominal Exam: Soft, Normal Bowel Sounds. absent: Tenderness - Extremities Exam Additional comments: left upper extremity AVF site wrapped in clean gauze. Auscultatory bruit present b/l lower extremities with 1+ pitting edema - Neurological Exam Neurological Exam: Alert, Awake - Skin Skin Exam: Warm Assessment and Plan - Assessment and Plan (Free Text) Plan: ARF 02/08/18: Patient status post left bidirectional brachial artery to antecubital vein fistula placement with Dr. Haro on 02/06/1802/01: will check 24 hour urine protein per nephrology 01/31: patient s/p permacath placement with Dr. Haro 01/30. Received dialysis late yesterday. Repeat dialysis this afternoon 01/31. Will have HD MWF. 02/06/18: s/p Left Bidirectional Brachial Artery to Antecubital Vein Fistula Dr. 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 All cultures negative[facility]anc[facility]. f/u Quantiferon, sputum culture 02/05: Afebrile WBC 9.8 No bands Blood cultures from 01/31 no growth at 5 days Patient switched to Tigecycline and Meropenem over the weekend 02/02: Afebrile overnight WBC 9 Repeat blood culture from 01/31 negative after 24 hours Continue with Vancomycin and Meropenem. Zyvox and Aztreonem discontinued on per ID Follow up MRI to r/o osteomyelitis 02/01: patient febrile overnight again, Tmax 101 WBC 9.5 antibiotic regimen adjusted by Dr. Blancas: aztreonam 1g q24, vancomycin added on dialysis days (MWF), meropenem q12 IVPB repeat blood culture ordered as well as stool for ova and parasite due to eosinophilia 01/31: Febrile overnight at 102.6F. Started Aztreonam 1Gm IVPB q24H. Currently on: Aztreonam 1Gm IVPB q24H (started 01/30) Zyvox 600mg PO BID (started 01/29) Meropenem 500mg IVPB Q12 (started 01/30) L foot xray 01/31- negative CT chest/abd/pelv 01/30- Bilateral pleural effusion with lower lobe subsegmental atelectasis. Chronic pancreatitis. Mildly dilated main pulmonary artery. Correlate for any history of pulmonary arterial hypertension. Thickened bladder wall. Possible artifact due to outlet obstruction or cystitis. Anasarca. See full report. 01/30: WBC 10.2 today. Last fever on 01/27. Dr. Blancas, [facility], consulted- help appreciated SIRS criteria present on admission (01/25): Temperature 101.2F, HR 106 SOFA score approximately 9 (no ABG for PaO2) initial VBG lactate (01/25) 4.1, repeat 1.0 procalcitonin 5.74 suspected possible sources include: line infection from prior PICC line- culture from (01/25) negative bacteremia- blood culture negative after 4 days pneumonia- chest CT negative for infiltrate however patient was dyspneic on admission, sputum culture uncollected urine- (01/25) urine culture negative prior hallux amputation site- recent amputation for osteomyelitis and was on IV abx prior to this admission. Podiatry team, Dr. Logan, consulted- recommendations appreciated patient on antibiotics: Tigecycline 50mg IVPB q12h (started 02/04) Meropenem 500mg IVPB q12h (started 02/04) patient previously on antibiotics: gentamicin 120mg x 1 dose (01/25) vancomycin x 1 dose (01/25) zosyn (01/25- 01/28) zyvox 600mg IVPB 12h (started 01/25) aztreonam 1gam IVPB q8h (started 01/28) medications adjusted due to kidney function Dyspnea (resolved) 02/05: ECHO - EF ~65%, large left pleural effusion, otherwise normal ECHO 02/02: patient underwent echo, follow up results 02/01: chest xray with worsening pulmonary vascular congestion, will check echo CT Chest: pulmonary vascular congestion with small to moderate bilateral pleural effusions and subjacent atelectasis (see full report) continue lasix 80mg IVP daily BNP 9070 no echocardiogram in our EMR f/u sputum culture, Quantiferon Transaminitis - resolved 02/09 AST/ALT 31/38 02/05: continue downtrending AST 29/ALT 53, Alk Phos 160 02/02: continue downtrending AST/ALT 60/85 today 01/31: downtrending LFTs after stopping Tylenol. Continue Ultram 50mg PO q6H PRN pain. 01/30: AST stable 142. ALT 129 and AlkP 190 uptrending. Stop Tylenol PRN. Start Ultram 50mg PO q6H PRN pain. AST/ ALT/ Alk phos increasing, today 175/ 121/180 T. Bili not elevated at 0.7 hepatitis A & B negative Hepatitis C negative RPR, HIV negative HTN Elevated today, will continue to monitor and adjust as needed hydralazine 50mg PO Q8h norvasc 10mg PO daily DM ISS Accucheck ACHS A1c 7.0 in 12/2017 holding all PO meds currently due to renal function left hallux amputation site bandaged Left hallux amputation procedure performed on last admission Dr. Logan, podiatry, following while patient in-house Prophylactic measure heparin 5,000unit Q12h (renal dosing) protonix 40mg IVP daily SCDs All medical management as per Dr. Deluna
[2018-02-09 10:24] LABS: NEUT # 4.8 K/uL (1.8-7.0)
[2018-02-09 10:25] LABS: BASO # 0.1 K/uL (0.0-0.2); LYMPH # 1.3 K/uL (1.0-4.3); MONO # 1.1 K/uL (0.0-0.8)
--- NOTE | 2018-02-09 12:35 | NM ---
PROCEDURE: Ceretec labeled white blood cell study HISTORY: fever COMPARISON: 01/31/2018 CT thorax abdomen and pelvis TECHNIQUE: 18.6 mCi technetium 99 M Ceretec labeled white blood cells administered intravenously. Tech Imaging obtained per institutional protocol at 3 and 22 hours. FINDINGS: No abnormal accumulation of radionuclide identified in the thorax, abdomen, retroperitoneum or pelvis. Expected uptake in the reticuloendothelial system, kidneys and bladder noted. IMPRESSION: Negative study
--- NOTE | 2018-02-09 14:20 | CP.PCM.PN ---
Subjective - Date & Time of Evaluation Date of Evaluation: 02/09/18 Time of Evaluation: 14:18 - Subjective Subjective: s/p dialysis 7/5- UF 3000ml s/p AV fistula creation- has strong bruit less dyspeic, no n, v, f, chills Objective - Vital Signs/Intake and Output Vital Signs (last 24 hours): Temp Pulse Resp BP Pulse Ox 98.1 F 62 20 148/69 99 02/09/18 08:14 02/09/18 08:14 02/09/18 08:14 02/09/18 09:07 02/09/18 08:14 Intake and Output: 02/09/18 02/09/18 06:59 18:59 Intake Total 800 Balance 800 - Medications Medications: Current Medications Acetaminophen (Tylenol 325mg Tab) 650 mg PO Q4 [facility] Last Admin: 01/30/18 16:12 Dose: Not Given Albumin Human (Albumin Human 25% (12.5 Gm/50 Ml)) 12.5 gm IV Q12H [facility] Stop: 02/11/18 16:01 Last Admin: 02/09/18 04:48 Dose: 12.5 gm Albuterol/Ipratropium (Duoneb 3 Mg/0.5 Mg (3 Ml) Ud) 3 ml INH RQ6 [facility] Last Admin: 02/09/18 13:29 Dose: 3 ml Amlodipine Besylate (Norvasc) 10 mg PO DAILY [facility] Last Admin: 02/09/18 09:04 Dose: 10 mg Carvedilol (Coreg) 12.5 mg PO BID [facility] Last Admin: 02/09/18 09:07 Dose: 12.5 mg Epoetin Alexandr (Procrit) 10,000 unit IV TTS [facility] Last Admin: 02/08/18 10:58 Dose: 10,000 unit Heparin Sodium (Porcine) (Heparin) 5,000 units SC Q12 [facility] Last Admin: 02/09/18 09:04 Dose: 5,000 units Heparin Sodium (Porcine) (Heparin) 1,000 units IVP ONCE [facility] Hydralazine HCl (Apresoline) 50 mg PO Q8 [facility] Last Admin: 02/09/18 13:14 Dose: 50 mg Tigecycline 50 mg/ Sodium (Chloride) 100 mls @ 100 mls/hr IVPB Q12H [facility] PRN Reason: Protocol Last Admin: 02/09/18 05:45 Dose: 100 mls/hr Meropenem 500 mg/ Sodium (Chloride) 100 mls @ 100 mls/hr IVPB Q12H [facility] PRN Reason: Protocol Last Admin: 02/09/18 13:15 Dose: 100 mls/hr Insulin Aspart (Novolog) 0 unit SC ACHS DIA PRN Reason: Protocol Last Admin: 02/09/18 11:30 Dose: Not Given Pantoprazole Sodium (Protonix Ec Tab) 40 mg PO DAILY [facility] Last Admin: 02/09/18 09:04 Dose: 40 mg Saccharomyces Boulardii (Florastor) 250 mg PO BID [facility] Last Admin: 02/09/18 09:04 Dose: 250 mg Tramadol HCl (Ultram) 50 mg PO Q6H PRN PRN Reason: Pain, moderate (4-7) - Labs Labs: 02/09/18 08:07 02/09/18 08:07 PT 13.2 SECONDS (9.7-12.2) H 02/06/18 06:15 INR 1.2 02/06/18 06:15 APTT 31 SECONDS (21-34) 02/06/18 06:15 - Constitutional Appears: No Acute Distress, Chronically Ill - Head Exam Head Exam: ATRAUMATIC, NORMAL INSPECTION - Eye Exam Eye Exam: EOMI, Normal appearance - Neck Exam Neck Exam: Normal Inspection. absent: Tenderness - Respiratory Exam Respiratory Exam: Clear to Ausculation Bilateral, NORMAL BREATHING PATTERN - Cardiovascular Exam Cardiovascular Exam: REGULAR RHYTHM, +S1 - GI/Abdominal Exam GI & Abdominal Exam: Soft. absent: Tenderness - Extremities Exam Extremities Exam: Normal Inspection. absent: Tenderness - Neurological Exam Neurological Exam: Alert, CN II-XII Intact - Skin Skin Exam: Dry, Warm Assessment and Plan (1) MANDY (acute kidney injury) Status: Acute (2) Type 2 diabetes mellitus with diabetic nephropathy Status: Acute (3) Fever Status: Acute (4) Diabetes 1.5, managed as type 2 Status: Acute (5) Nonhealing ulcer of left lower extremity Status: Acute (6) CHF (congestive heart failure) Status: Acute (7) ESRD (end stage renal disease) Status: Acute - Assessment and Plan (Free Text) Plan: dialysis TTS Wound care Await AV fistula maturation follow up Hg
--- NOTE | 2018-02-09 15:25 | CP.PCM.PN ---
Subjective - Date & Time of Evaluation Date of Evaluation: 02/09/18 Time of Evaluation: 15:23 - Subjective Subjective: Podiatry Progress Note - Dr. Logan 62 year old male patient who is 5 weeks s/p left foot partial hallux amputation seen and evaluated at bedside. Patient is AAOx3 and in NAD. Patient is resting in bed comfortably. Patient denies any other pedal complaints at this time. Patient denies N/V/F/C/SOB/CP/pain on posterior calf since last night. Objective - Vital Signs/Intake and Output Vital Signs (last 24 hours): Temp Pulse Resp BP Pulse Ox 98.1 F 62 20 148/69 99 02/09/18 08:14 02/09/18 08:14 02/09/18 08:14 02/09/18 09:07 02/09/18 08:14 Intake and Output: 02/09/18 02/09/18 06:59 18:59 Intake Total 800 Balance 800 - Medications Medications: Current Medications Acetaminophen (Tylenol 325mg Tab) 650 mg PO Q4 [facility] Last Admin: 01/30/18 16:12 Dose: Not Given Albumin Human (Albumin Human 25% (12.5 Gm/50 Ml)) 12.5 gm IV Q12H [facility] Stop: 02/11/18 16:01 Last Admin: 02/09/18 04:48 Dose: 12.5 gm Albuterol/Ipratropium (Duoneb 3 Mg/0.5 Mg (3 Ml) Ud) 3 ml INH RQ6 [facility] Last Admin: 02/09/18 13:29 Dose: 3 ml Amlodipine Besylate (Norvasc) 10 mg PO DAILY [facility] Last Admin: 02/09/18 09:04 Dose: 10 mg Carvedilol (Coreg) 12.5 mg PO BID [facility] Last Admin: 02/09/18 09:07 Dose: 12.5 mg Epoetin Alexandr (Procrit) 10,000 unit IV TTS [facility] Last Admin: 02/08/18 10:58 Dose: 10,000 unit Heparin Sodium (Porcine) (Heparin) 5,000 units SC Q12 [facility] Last Admin: 02/09/18 09:04 Dose: 5,000 units Heparin Sodium (Porcine) (Heparin) 1,000 units IVP ONCE [facility] Hydralazine HCl (Apresoline) 50 mg PO Q8 [facility] Last Admin: 02/09/18 13:14 Dose: 50 mg Tigecycline 50 mg/ Sodium (Chloride) 100 mls @ 100 mls/hr IVPB Q12H [facility] PRN Reason: Protocol Last Admin: 02/09/18 05:45 Dose: 100 mls/hr Meropenem 500 mg/ Sodium (Chloride) 100 mls @ 100 mls/hr IVPB Q12H [facility] PRN Reason: Protocol Last Admin: 02/09/18 13:15 Dose: 100 mls/hr Insulin Aspart (Novolog) 0 unit SC ACHS DIA PRN Reason: Protocol Last Admin: 02/09/18 11:30 Dose: Not Given Pantoprazole Sodium (Protonix Ec Tab) 40 mg PO DAILY [facility] Last Admin: 02/09/18 09:04 Dose: 40 mg Saccharomyces Boulardii (Florastor) 250 mg PO BID [facility] Last Admin: 02/09/18 09:04 Dose: 250 mg Tramadol HCl (Ultram) 50 mg PO Q6H PRN PRN Reason: Pain, moderate (4-7) - Labs Labs: 02/09/18 08:07 02/09/18 08:07 PT 13.2 SECONDS (9.7-12.2) H 02/06/18 06:15 INR 1.2 02/06/18 06:15 APTT 31 SECONDS (21-34) 02/06/18 06:15 - Constitutional Appears: Well, Non-toxic, No Acute Distress - Extremities Exam Additional comments: Left LE focused exam: Vasc: DP/PT pulses non-palpable, Cap refill delayed > 3 sec in all digits, Temp gradient warm to cool. No edema. Neuro: Gross and protective sensation intact. Derm: Surgical incision site appears clean, dry, well coapted, no sutures remain , there is no evidence of wound dehiscence, no malodor, no drainage, No clinical signs of active bacterial infection noted. rtho: No pain on palpation at the surgical site. Partially amputated L hallux is noted. 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 Logan Left hallux dressed using betadine, DSD and kerlix Patient is stable from podiatry standpoint Podiatry will continue to follow in house
--- NOTE | 2018-02-09 15:43 | CP.PCM.PN ---
Subjective - Date & Time of Evaluation Date of Evaluation: 02/09/18 Time of Evaluation: 03:30 - Subjective Subjective: dictated Objective - Vital Signs/Intake and Output Vital Signs (last 24 hours): Temp Pulse Resp BP Pulse Ox 98.1 F 62 20 148/69 99 02/09/18 08:14 02/09/18 08:14 02/09/18 08:14 02/09/18 09:07 02/09/18 08:14 Intake and Output: 02/09/18 02/09/18 06:59 18:59 Intake Total 800 Balance 800 - Medications Medications: Current Medications Acetaminophen (Tylenol 325mg Tab) 650 mg PO Q4 [facility] Last Admin: 01/30/18 16:12 Dose: Not Given Albumin Human (Albumin Human 25% (12.5 Gm/50 Ml)) 12.5 gm IV Q12H [facility] Stop: 02/11/18 16:01 Last Admin: 02/09/18 04:48 Dose: 12.5 gm Albuterol/Ipratropium (Duoneb 3 Mg/0.5 Mg (3 Ml) Ud) 3 ml INH RQ6 [facility] Last Admin: 02/09/18 13:29 Dose: 3 ml Amlodipine Besylate (Norvasc) 10 mg PO DAILY [facility] Last Admin: 02/09/18 09:04 Dose: 10 mg Carvedilol (Coreg) 12.5 mg PO BID [facility] Last Admin: 02/09/18 09:07 Dose: 12.5 mg Epoetin Alexandr (Procrit) 10,000 unit IV TTS [facility] Last Admin: 02/08/18 10:58 Dose: 10,000 unit Heparin Sodium (Porcine) (Heparin) 5,000 units SC Q12 [facility] Last Admin: 02/09/18 09:04 Dose: 5,000 units Heparin Sodium (Porcine) (Heparin) 1,000 units IVP ONCE [facility] Hydralazine HCl (Apresoline) 50 mg PO Q8 [facility] Last Admin: 02/09/18 13:14 Dose: 50 mg Tigecycline 50 mg/ Sodium (Chloride) 100 mls @ 100 mls/hr IVPB Q12H [facility] PRN Reason: Protocol Last Admin: 02/09/18 05:45 Dose: 100 mls/hr Insulin Aspart (Novolog) 0 unit SC ACHS [facility] PRN Reason: Protocol Last Admin: 02/09/18 11:30 Dose: Not Given Pantoprazole Sodium (Protonix Ec Tab) 40 mg PO DAILY [facility] Last Admin: 02/09/18 09:04 Dose: 40 mg Saccharomyces Boulardii (Florastor) 250 mg PO BID [facility] Last Admin: 02/09/18 09:04 Dose: 250 mg Tramadol HCl (Ultram) 50 mg PO Q6H PRN PRN Reason: Pain, moderate (4-7) - Labs Labs: 02/09/18 08:07 02/09/18 08:07 PT 13.2 SECONDS (9.7-12.2) H 02/06/18 06:15 INR 1.2 02/06/18 06:15 APTT 31 SECONDS (21-34) 02/06/18 06:15
--- NOTE | 2018-02-09 19:16 | CP.PCM.PN ---
Subjective - Date & Time of Evaluation Date of Evaluation: 02/09/18 Time of Evaluation: 07:40 - Subjective Subjective: clinically same Objective - Vital Signs/Intake and Output Vital Signs (last 24 hours): Temp Pulse Resp BP Pulse Ox 97.9 F 60 20 151/72 H 98 02/09/18 15:58 02/09/18 18:05 02/09/18 15:58 02/09/18 17:22 02/09/18 15:58 - Medications Medications: Current Medications Acetaminophen (Tylenol 325mg Tab) 650 mg PO Q4 [facility] Last Admin: 01/30/18 16:12 Dose: Not Given Albumin Human (Albumin Human 25% (12.5 Gm/50 Ml)) 12.5 gm IV Q12H [facility] Stop: 02/11/18 16:01 Last Admin: 02/09/18 18:15 Dose: 12.5 gm Albuterol/Ipratropium (Duoneb 3 Mg/0.5 Mg (3 Ml) Ud) 3 ml INH RQ6 [facility] Last Admin: 02/09/18 13:29 Dose: 3 ml Amlodipine Besylate (Norvasc) 10 mg PO DAILY [facility] Last Admin: 02/09/18 09:04 Dose: 10 mg Carvedilol (Coreg) 12.5 mg PO BID [facility] Last Admin: 02/09/18 17:22 Dose: 12.5 mg Epoetin Alexandr (Procrit) 10,000 unit IV TTS [facility] Last Admin: 02/08/18 10:58 Dose: 10,000 unit Heparin Sodium (Porcine) (Heparin) 5,000 units SC Q12 [facility] Last Admin: 02/09/18 09:04 Dose: 5,000 units Heparin Sodium (Porcine) (Heparin) 1,000 units IVP ONCE [facility] Hydralazine HCl (Apresoline) 50 mg PO Q8 [facility] Last Admin: 02/09/18 13:14 Dose: 50 mg Tigecycline 50 mg/ Sodium (Chloride) 100 mls @ 100 mls/hr IVPB Q12H [facility] PRN Reason: Protocol Last Admin: 02/09/18 16:35 Dose: 100 mls/hr Insulin Aspart (Novolog) 0 unit SC ACHS [facility] PRN Reason: Protocol Last Admin: 02/09/18 17:22 Dose: 2 units Pantoprazole Sodium (Protonix Ec Tab) 40 mg PO DAILY [facility] Last Admin: 02/09/18 09:04 Dose: 40 mg Saccharomyces Boulardii (Florastor) 250 mg PO BID [facility] Last Admin: 02/09/18 17:22 Dose: 250 mg Tramadol HCl (Ultram) 50 mg PO Q6H PRN PRN Reason: Pain, moderate (4-7) - Labs Labs: 02/09/18 08:07 02/09/18 08:07 PT 13.2 SECONDS (9.7-12.2) H 02/06/18 06:15 INR 1.2 02/06/18 06:15 APTT 31 SECONDS (21-34) 02/06/18 06:15 - Constitutional Appears: Well - Head Exam Head Exam: ATRAUMATIC, NORMAL INSPECTION, NORMOCEPHALIC - Eye Exam Eye Exam: EOMI, Normal appearance, PERRL Pupil Exam: NORMAL ACCOMODATION, PERRL - ENT Exam ENT Exam: Mucous Membranes Moist, Normal Exam - Neck Exam Neck Exam: Full ROM, Normal Inspection. absent: Lymphadenopathy - Respiratory Exam Respiratory Exam: Decreased Breath Sounds - Cardiovascular Exam Cardiovascular Exam: REGULAR RHYTHM, +S1, +S2 - GI/Abdominal Exam GI & Abdominal Exam: Soft, Diminished Bowel Sounds - Rectal Exam Rectal Exam: Deferred
--- NOTE | 2018-02-09 20:46 | PN ---
DATE: 02/09/2018 SUBJECTIVE: The patient is in isolation at this time. We want to rule out TB also as he is an [place] male and came in with fevers and fevers were not getting better. However, his Ceretec scan is negative, and he is afebrile today. T-max is 98.1, pulse 62, blood pressure is 144/67, respirations are 20. He does say he is having three bowel movements and goes to urinate at the same time, and he remains with his left arm swollen. He had a fistula placed there, and he remains on IV antibiotics at this time. His lower extremities, he says are feeling better, it is not itching, but there is skin peeling going on, and he still has a dressing on the left great toe. He denies any cough. He says he never was exposed to TB, but he is of [place] origin, and he did come in with pneumonia and CHF. PHYSICAL EXAMINATION: VITAL SIGNS: T max is 98.1, vitals are stable. GENERAL: He is awake and alert. NECK: Supple. LUNGS: Clear. No crackles or rales present. HEART: S1, S2 is regular. ABDOMEN: Soft, nontender. No guarding, no rigidity present. EXTREMITIES: There is still edema present, but is much less, and there is skin peeling but no redness, no swelling left at this time. Labs are noted. Labs show white count is 7.3, hemoglobin 8.2, hematocrit 23.1, platelet count is 307. His chemistry is showing sodium 134, potassium 4.2, chlorides are 98, BUN is 38, creatinine is 2.9, it is little better, and so at this time we are waiting for a Gold Quantiferon test. I will also order a C. 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 Fevers have persisted, and he had a lot of would have been drug related and had an acute renal failure. He is diabetic, and he is now on dialysis. He still has a right-sided catheter, and he is being followed by Renal. At this time, I am going to discontinue the Merrem, and hope that he does not have fever. Status post C. diff and continue Tygacil for now as he still has left arm swelling and he just got a new fistula placed. Tiffany Blancas MD
[2018-02-10] MEDS: Albuterol-Ipratrop 3 mg / 0.5 (3 ml) UD INH SCH ×4 (02:40→20:13)
[2018-02-10] MEDS: Albumin Human 25% (12.5 gm/50 ml) IV SCH ×2 (04:00→18:34)
--- NOTE | 2018-02-10 07:31 | CP.PCM.PN ---
Subjective - Date & Time of Evaluation Date of Evaluation: 02/10/18 Time of Evaluation: 07:28 - Subjective Subjective: Podiatry Progress Note for attending Dr. Logan 62 year old male patient who is 5 weeks s/p left foot partial hallux amputation seen and evaluated at the bedside. Patient is not in acute distress. Patient is AAOx3 and in NAD. Patient is resting in bed comfortably. Patient denies any other pedal complaints at this time. Patient states that his toe nails are bothering him and he needs it to be trimmed. Patient denies N/V/F/C/SOB/CP/ pain on posterior calf since last night. Patient denies any other pedal complaints Objective - Vital Signs/Intake and Output Vital Signs (last 24 hours): Temp Pulse Resp BP Pulse Ox 97.7 F 59 L 20 136/72 100 02/10/18 00:00 02/10/18 00:00 02/10/18 00:00 02/10/18 00:00 02/10/18 00:00 Intake and Output: 02/10/18 02/10/18 06:59 18:59 Intake Total 700 Balance 700 - Medications Medications: Current Medications Acetaminophen (Tylenol 325mg Tab) 650 mg PO Q4 [facility] Last Admin: 01/30/18 16:12 Dose: Not Given Albumin Human (Albumin Human 25% (12.5 Gm/50 Ml)) 12.5 gm IV Q12H [facility] Stop: 02/11/18 16:01 Last Admin: 02/09/18 18:15 Dose: 12.5 gm Albuterol/Ipratropium (Duoneb 3 Mg/0.5 Mg (3 Ml) Ud) 3 ml INH RQ6 [facility] Last Admin: 02/10/18 02:40 Dose: Not Given Amlodipine Besylate (Norvasc) 10 mg PO DAILY [facility] Last Admin: 02/09/18 09:04 Dose: 10 mg Carvedilol (Coreg) 12.5 mg PO BID [facility] Last Admin: 02/09/18 17:22 Dose: 12.5 mg Epoetin Alexandr (Procrit) 10,000 unit IV TTS [facility] Last Admin: 02/08/18 10:58 Dose: 10,000 unit Heparin Sodium (Porcine) (Heparin) 5,000 units SC Q12 [facility] Last Admin: 02/09/18 21:50 Dose: 5,000 units Heparin Sodium (Porcine) (Heparin) 1,000 units IVP ONCE [facility] Hydralazine HCl (Apresoline) 50 mg PO Q8 [facility] Last Admin: 02/10/18 05:45 Dose: 50 mg Tigecycline 50 mg/ Sodium (Chloride) 100 mls @ 100 mls/hr IVPB Q12H [facility] PRN Reason: Protocol Last Admin: 02/10/18 05:45 Dose: 100 mls/hr Insulin Aspart (Novolog) 0 unit SC ACHS [facility] PRN Reason: Protocol Last Admin: 02/09/18 21:47 Dose: Not Given Pantoprazole Sodium (Protonix Ec Tab) 40 mg PO DAILY [facility] Last Admin: 02/09/18 09:04 Dose: 40 mg Saccharomyces Boulardii (Florastor) 250 mg PO BID [facility] Last Admin: 02/09/18 17:22 Dose: 250 mg Tramadol HCl (Ultram) 50 mg PO Q6H PRN PRN Reason: Pain, moderate (4-7) - Labs Labs: 02/09/18 08:07 02/09/18 08:07 PT 13.2 SECONDS (9.7-12.2) H 02/06/18 06:15 INR 1.2 02/06/18 06:15 APTT 31 SECONDS (21-34) 02/06/18 06:15 - Constitutional Appears: Well, Non-toxic, No Acute Distress - Head Exam Head Exam: ATRAUMATIC, NORMOCEPHALIC - Extremities Exam Additional comments: Left LE focused exam: Vasc: DP/PT pulses are non-palpable, Cap refill delayed > 3 sec in all digits, Temp gradient warm to cool. No edema. Neuro: Gross and protective sensation are intact. Derm: Surgical incision site appears clean, dry, well coapted, with no evidence of wound dehiscence, no malodor, no drainage, No clinical signs of active bacterial infection noted. MSK: No pain on palpation at the surgical site. Partially amputated L hallux is noted. - Neurological Exam Neurological Exam: Alert, Awake, Oriented x3 - Psychiatric Exam Psychiatric exam: Normal Affect, Normal Mood Assessment and Plan - Assessment and Plan (Free Text) Assessment: 62 year old male patient seen and evaluated 5 weeks s/p left hallux partial amputation secondary to gangrene and osteomyelitis Plan: Patient seen and evaluated at the bedside Discussed plan in detail with attending Dr. Logan Left hallux dressed using betadine, DSD and kerlix Patient is stable from podiatry standpoint Podiatry will continue to follow in house
--- NOTE | 2018-02-10 08:28 | CP.PCM.PN ---
Subjective - Date & Time of Evaluation Date of Evaluation: 02/10/18 Time of Evaluation: 07:40 - Subjective Subjective: clinically same Objective - Vital Signs/Intake and Output Vital Signs (last 24 hours): Temp Pulse Resp BP Pulse Ox 97.7 F 60 20 164/76 H 99 02/10/18 08:04 02/10/18 08:04 02/10/18 08:04 02/10/18 08:04 02/10/18 08:04 Intake and Output: 02/10/18 02/10/18 06:59 18:59 Intake Total 700 Balance 700 - Medications Medications: Current Medications Acetaminophen (Tylenol 325mg Tab) 650 mg PO Q4 [facility] Last Admin: 01/30/18 16:12 Dose: Not Given Albumin Human (Albumin Human 25% (12.5 Gm/50 Ml)) 12.5 gm IV Q12H [facility] Stop: 02/11/18 16:01 Last Admin: 02/09/18 18:15 Dose: 12.5 gm Albuterol/Ipratropium (Duoneb 3 Mg/0.5 Mg (3 Ml) Ud) 3 ml INH RQ6 [facility] Last Admin: 02/10/18 02:40 Dose: Not Given Amlodipine Besylate (Norvasc) 10 mg PO DAILY [facility] Last Admin: 02/09/18 09:04 Dose: 10 mg Carvedilol (Coreg) 12.5 mg PO BID [facility] Last Admin: 02/09/18 17:22 Dose: 12.5 mg Epoetin Alexandr (Procrit) 10,000 unit IV TTS [facility] Last Admin: 02/08/18 10:58 Dose: 10,000 unit Heparin Sodium (Porcine) (Heparin) 5,000 units SC Q12 [facility] Last Admin: 02/09/18 21:50 Dose: 5,000 units Heparin Sodium (Porcine) (Heparin) 1,000 units IVP ONCE [facility] Hydralazine HCl (Apresoline) 50 mg PO Q8 [facility] Last Admin: 02/10/18 05:45 Dose: 50 mg Tigecycline 50 mg/ Sodium (Chloride) 100 mls @ 100 mls/hr IVPB Q12H [facility] PRN Reason: Protocol Last Admin: 02/10/18 05:45 Dose: 100 mls/hr Insulin Aspart (Novolog) 0 unit SC ACHS [facility] PRN Reason: Protocol Last Admin: 02/09/18 21:47 Dose: Not Given Pantoprazole Sodium (Protonix Ec Tab) 40 mg PO DAILY [facility] Last Admin: 02/09/18 09:04 Dose: 40 mg Saccharomyces Boulardii (Florastor) 250 mg PO BID [facility] Last Admin: 02/09/18 17:22 Dose: 250 mg Tramadol HCl (Ultram) 50 mg PO Q6H PRN PRN Reason: Pain, moderate (4-7) - Labs Labs: 02/09/18 08:07 02/09/18 08:07 PT 13.2 SECONDS (9.7-12.2) H 02/06/18 06:15 INR 1.2 02/06/18 06:15 APTT 31 SECONDS (21-34) 02/06/18 06:15 - Constitutional Appears: Well - Head Exam Head Exam: ATRAUMATIC, NORMAL INSPECTION, NORMOCEPHALIC - Eye Exam Eye Exam: EOMI, Normal appearance, PERRL Pupil Exam: NORMAL ACCOMODATION, PERRL - ENT Exam ENT Exam: Mucous Membranes Moist, Normal Exam - Neck Exam Neck Exam: Full ROM, Normal Inspection. absent: Lymphadenopathy - Respiratory Exam Respiratory Exam: Decreased Breath Sounds - Cardiovascular Exam Cardiovascular Exam: REGULAR RHYTHM, +S1, +S2 - GI/Abdominal Exam GI & Abdominal Exam: Soft, Diminished Bowel Sounds - Rectal Exam Rectal Exam: Deferred Assessment and Plan - Assessment and Plan (Free Text) Plan: Patient still has a few Discussed with Also discussed with the supervisor malt house may need to remove further left portion of amputation of the toe Metastatic scan as patient has a fever on and off Continue IV antibiotic Follow-up with ID Follow-up with the renal Follow-up with the pulmonary As ordered
[2018-02-10] MEDS: (Novolog) Insulin Aspart, Recombinant 100 u/ml 10 ml vial SC SCH ×5 (08:35→21:44)
--- NOTE | 2018-02-10 10:02 | CP.PCM.PN ---
Subjective - Date & Time of Evaluation Date of Evaluation: 02/10/18 Time of Evaluation: 09:59 - Subjective Subjective: appears same has been afebrile placed on respiratory isolation- will do dialysis in room less edematous no new complaints Objective - Vital Signs/Intake and Output Vital Signs (last 24 hours): Temp Pulse Resp BP Pulse Ox 97.7 F 60 20 164/76 H 99 02/10/18 08:04 02/10/18 08:04 02/10/18 08:04 02/10/18 08:04 02/10/18 08:04 Intake and Output: 02/10/18 02/10/18 06:59 18:59 Intake Total 700 Balance 700 - Medications Medications: Current Medications Acetaminophen (Tylenol 325mg Tab) 650 mg PO Q4 [facility] Last Admin: 01/30/18 16:12 Dose: Not Given Albumin Human (Albumin Human 25% (12.5 Gm/50 Ml)) 12.5 gm IV Q12H [facility] Stop: 02/11/18 16:01 Last Admin: 02/09/18 18:15 Dose: 12.5 gm Albuterol/Ipratropium (Duoneb 3 Mg/0.5 Mg (3 Ml) Ud) 3 ml INH RQ6 [facility] Last Admin: 02/10/18 08:30 Dose: 3 ml Amlodipine Besylate (Norvasc) 10 mg PO DAILY [facility] Last Admin: 02/09/18 09:04 Dose: 10 mg Carvedilol (Coreg) 12.5 mg PO BID [facility] Last Admin: 02/09/18 17:22 Dose: 12.5 mg Epoetin Alexandr (Procrit) 10,000 unit IV TTS [facility] Last Admin: 02/08/18 10:58 Dose: 10,000 unit Heparin Sodium (Porcine) (Heparin) 5,000 units SC Q12 [facility] Last Admin: 02/09/18 21:50 Dose: 5,000 units Heparin Sodium (Porcine) (Heparin) 1,000 units IVP ONCE [facility] Hydralazine HCl (Apresoline) 50 mg PO Q8 [facility] Last Admin: 02/10/18 05:45 Dose: 50 mg Tigecycline 50 mg/ Sodium (Chloride) 100 mls @ 100 mls/hr IVPB Q12H [facility] PRN Reason: Protocol Last Admin: 02/10/18 05:45 Dose: 100 mls/hr Insulin Aspart (Novolog) 0 unit SC ACHS [facility] PRN Reason: Protocol Last Admin: 02/10/18 08:35 Dose: 4 units Pantoprazole Sodium (Protonix Ec Tab) 40 mg PO DAILY [facility] Last Admin: 02/09/18 09:04 Dose: 40 mg Saccharomyces Boulardii (Florastor) 250 mg PO BID [facility] Last Admin: 02/09/18 17:22 Dose: 250 mg Tramadol HCl (Ultram) 50 mg PO Q6H PRN PRN Reason: Pain, moderate (4-7) - Labs Labs: 02/09/18 08:07 02/09/18 08:07 PT 13.2 SECONDS (9.7-12.2) H 02/06/18 06:15 INR 1.2 02/06/18 06:15 APTT 31 SECONDS (21-34) 02/06/18 06:15 - Constitutional Appears: No Acute Distress, Chronically Ill - Head Exam Head Exam: ATRAUMATIC, NORMAL INSPECTION - Eye Exam Eye Exam: EOMI, Normal appearance - Neck Exam Neck Exam: Normal Inspection. absent: Tenderness - Respiratory Exam Respiratory Exam: Clear to Ausculation Bilateral, NORMAL BREATHING PATTERN - Cardiovascular Exam Cardiovascular Exam: REGULAR RHYTHM, +S1 - GI/Abdominal Exam GI & Abdominal Exam: Soft. absent: Tenderness - Extremities Exam Extremities Exam: Normal Inspection. absent: Tenderness - Neurological Exam Neurological Exam: Alert, CN II-XII Intact - Skin Skin Exam: Dry, Warm Assessment and Plan (1) MANDY (acute kidney injury) Status: Acute (2) Type 2 diabetes mellitus with diabetic nephropathy Status: Acute (3) Fever Status: Acute (4) Diabetes 1.5, managed as type 2 Status: Acute (5) Nonhealing ulcer of left lower extremity Status: Acute (6) CHF (congestive heart failure) Status: Acute (7) ESRD (end stage renal disease) Status: Acute - Assessment and Plan (Free Text) Plan: dialysis now then TTS wound care surgical follow up respiratory isolation as per medicine
[2018-02-10] MEDS: Saccharomyces Boulardi 250 mg Cap PO SCH ×2 (10:15→18:32)
[2018-02-10] MEDS: Pantoprazole 40 mg EC Tab PO SCH (13:10)
[2018-02-10] MEDS: Epoetin Alfa 10,000 unit/ml Dialysis IV SCH (15:26)
[2018-02-10 22:06] LABS: HEMOGLOBIN 8.6 g/dL (12.0-18.0); MEAN CELL VOLUME 87.5 fL (80.0-94.0); MEAN CORPUSCULAR HEMOGLOBIN 29.5 pg (27.0-31.0); MEAN CORPUSCULAR HGB CONC 33.8 g/dL (33.0-37.0); MEAN PLATELET VOLUME 7.7 fL (7.2-11.7); RBC 2.9 Mil/uL (4.40-5.90); RED CELL DISTRIBUTION WIDTH 14.7 % (11.5-14.5); WHITE BLOOD COUNT 7.5 K/uL (4.8-10.8)
[2018-02-10 22:19] LABS: IRON 53 ug/dL (49-181)
[2018-02-10 22:23] LABS: ALB/GLOB RATIO 0.9 (1.0-2.1); ALBUMIN 3.1 g/dL (3.5-5.0); CALCIUM 7.6 mg/dl (8.6-10.4)
[2018-02-10 22:28] LABS: % IRON SATURATION 28 (20-55); TOTAL IRON BINDING CAPACITY 189 ug/dL (250-450)
[2018-02-11] MEDS: Albuterol-Ipratrop 3 mg / 0.5 (3 ml) UD INH SCH ×3 (02:42→13:27)
[2018-02-11] MEDS: Albumin Human 25% (12.5 gm/50 ml) IV SCH ×2 (04:00→15:42)
[2018-02-11] MEDS: (Novolog) Insulin Aspart, Recombinant 100 u/ml 10 ml vial SC SCH ×4 (08:25→21:31)
--- NOTE | 2018-02-11 08:43 | CP.PCM.PN ---
Subjective - Date & Time of Evaluation Date of Evaluation: 02/11/18 Time of Evaluation: 07:40 - Subjective Subjective: clinically same Objective - Vital Signs/Intake and Output Vital Signs (last 24 hours): Temp Pulse Resp BP Pulse Ox 97.8 F 62 20 167/70 H 97 02/11/18 08:38 02/11/18 08:38 02/11/18 08:38 02/11/18 08:38 02/11/18 08:38 Intake and Output: 02/11/18 02/11/18 06:59 18:59 Intake Total 460 Balance 460 - Medications Medications: Current Medications Acetaminophen (Tylenol 325mg Tab) 650 mg PO Q4 [facility] Last Admin: 01/30/18 16:12 Dose: Not Given Albumin Human (Albumin Human 25% (12.5 Gm/50 Ml)) 12.5 gm IV Q12H [facility] Stop: 02/11/18 16:01 Last Admin: 02/11/18 04:00 Dose: 12.5 gm Albuterol/Ipratropium (Duoneb 3 Mg/0.5 Mg (3 Ml) Ud) 3 ml INH RQ6 [facility] Last Admin: 02/11/18 08:23 Dose: 3 ml Amlodipine Besylate (Norvasc) 10 mg PO DAILY [facility] Last Admin: 02/10/18 13:30 Dose: Not Given Carvedilol (Coreg) 12.5 mg PO BID [facility] Last Admin: 02/10/18 18:32 Dose: 12.5 mg Epoetin Alexandr (Procrit) 10,000 unit IV TTS [facility] Last Admin: 02/10/18 15:26 Dose: 10,000 unit Heparin Sodium (Porcine) (Heparin) 1,000 units IVP ONCE [facility] Tigecycline 50 mg/ Sodium (Chloride) 100 mls @ 100 mls/hr IVPB Q12H [facility] PRN Reason: Protocol Last Admin: 02/11/18 06:00 Dose: 100 mls/hr Insulin Aspart (Novolog) 0 unit SC ACHS [facility] PRN Reason: Protocol Last Admin: 02/11/18 08:25 Dose: 3 units Pantoprazole Sodium (Protonix Ec Tab) 40 mg PO DAILY [facility] Last Admin: 02/10/18 13:10 Dose: Not Given Saccharomyces Boulardii (Florastor) 250 mg PO BID [facility] Last Admin: 02/10/18 18:32 Dose: 250 mg Tramadol HCl (Ultram) 50 mg PO Q6H PRN PRN Reason: Pain, moderate (4-7) - Labs Labs: 02/10/18 22:02 02/10/18 22:02 PT 13.2 SECONDS (9.7-12.2) H 02/06/18 06:15 INR 1.2 02/06/18 06:15 APTT 31 SECONDS (21-34) 02/06/18 06:15 - Constitutional Appears: Well - Head Exam Head Exam: ATRAUMATIC, NORMAL INSPECTION, NORMOCEPHALIC - Eye Exam Eye Exam: EOMI, Normal appearance, PERRL Pupil Exam: NORMAL ACCOMODATION, PERRL - ENT Exam ENT Exam: Mucous Membranes Moist, Normal Exam - Neck Exam Neck Exam: Full ROM, Normal Inspection. absent: Lymphadenopathy - Respiratory Exam Respiratory Exam: Decreased Breath Sounds - Cardiovascular Exam Cardiovascular Exam: REGULAR RHYTHM, +S1, +S2 - GI/Abdominal Exam GI & Abdominal Exam: Soft, Diminished Bowel Sounds - Rectal Exam Rectal Exam: Deferred Assessment and Plan (1) MANDY (acute kidney injury) Status: Acute (2) CHF (congestive heart failure) Status: Acute (3) ESRD (end stage renal disease) Status: Acute (4) Fever Status: Acute (5) Hospital-acquired pneumonia Status: Acute (6) Renal insufficiency Status: Acute (7) Type 2 diabetes mellitus with diabetic nephropathy Status: Acute (8) Diabetes 1.5, managed as type 2 Status: Acute (9) Hypertension Status: Acute (10) Nonhealing ulcer of left lower extremity Status: Acute (11) Osteomyelitis Status: Acute - Assessment and Plan (Free Text) Plan: On hemodialysis Status post fistula And respiratory isolations Follow-up with ID Follow-up with podiatry Follow-up with the renal Continue IV antibiotic IV tigecycline GI and DVT prophylaxis Spoke to the family member ceretec scan--negative
[2018-02-11] MEDS: Saccharomyces Boulardi 250 mg Cap PO SCH ×2 (09:15→17:23)
[2018-02-11] MEDS: Pantoprazole 40 mg EC Tab PO SCH (09:15)
--- NOTE | 2018-02-11 14:41 | CP.PCM.PN ---
Subjective - Date & Time of Evaluation Date of Evaluation: 02/11/18 Time of Evaluation: 01:45 - Subjective Subjective: dictated Objective - Vital Signs/Intake and Output Vital Signs (last 24 hours): Temp Pulse Resp BP Pulse Ox 97.8 F 62 20 151/60 H 97 02/11/18 08:38 02/11/18 08:38 02/11/18 08:38 02/11/18 09:15 02/11/18 08:38 Intake and Output: 02/11/18 02/11/18 06:59 18:59 Intake Total 460 480 Balance 460 480 - Medications Medications: Current Medications Acetaminophen (Tylenol 325mg Tab) 650 mg PO Q4 [facility] Last Admin: 01/30/18 16:12 Dose: Not Given Albumin Human (Albumin Human 25% (12.5 Gm/50 Ml)) 12.5 gm IV Q12H [facility] Stop: 02/11/18 16:01 Last Admin: 02/11/18 04:00 Dose: 12.5 gm Albuterol/Ipratropium (Duoneb 3 Mg/0.5 Mg (3 Ml) Ud) 3 ml INH RQ6 [facility] Last Admin: 02/11/18 13:27 Dose: 3 ml Amlodipine Besylate (Norvasc) 10 mg PO DAILY [facility] Last Admin: 02/11/18 09:15 Dose: 10 mg Carvedilol (Coreg) 12.5 mg PO BID [facility] Last Admin: 02/11/18 09:15 Dose: 12.5 mg Epoetin Alexandr (Procrit) 10,000 unit IV TTS [facility] Last Admin: 02/10/18 15:26 Dose: 10,000 unit Heparin Sodium (Porcine) (Heparin) 1,000 units IVP ONCE [facility] Tigecycline 50 mg/ Sodium (Chloride) 100 mls @ 100 mls/hr IVPB Q12H [facility] PRN Reason: Protocol Last Admin: 02/11/18 06:00 Dose: 100 mls/hr Insulin Aspart (Novolog) 0 unit SC ACHS [facility] PRN Reason: Protocol Last Admin: 02/11/18 12:15 Dose: 4 units Pantoprazole Sodium (Protonix Ec Tab) 40 mg PO DAILY [facility] Last Admin: 02/11/18 09:15 Dose: 40 mg Saccharomyces Boulardii (Florastor) 250 mg PO BID [facility] Last Admin: 02/11/18 09:15 Dose: 250 mg Tramadol HCl (Ultram) 50 mg PO Q6H PRN PRN Reason: Pain, moderate (4-7) - Labs Labs: 02/10/18 22:02 02/10/18 22:02 PT 13.2 SECONDS (9.7-12.2) H 02/06/18 06:15 INR 1.2 02/06/18 06:15 APTT 31 SECONDS (21-34) 02/06/18 06:15
--- NOTE | 2018-02-11 16:20 | CP.PCM.PN ---
Subjective - Date & Time of Evaluation Date of Evaluation: 02/11/18 Time of Evaluation: 16:17 - Subjective Subjective: Podiatry Progress Note for attending Dr. Logan 62 year old male patient who is 5 weeks s/p left foot partial hallux amputation seen and evaluated at the bedside. Patient is AAOx3 and is resting in bed comfortably. Patient is not in acute distress. Patient denies any other pedal complaints at this time. Patient denies N/V/F/C/SOB/CP/pain on posterior calf since last night. Patient denies any other pedal complaints Objective - Vital Signs/Intake and Output Vital Signs (last 24 hours): Temp Pulse Resp BP Pulse Ox 97.8 F 62 20 151/60 H 97 02/11/18 08:38 02/11/18 08:38 02/11/18 08:38 02/11/18 09:15 02/11/18 08:38 Intake and Output: 02/11/18 02/11/18 06:59 18:59 Intake Total 460 580 Balance 460 580 - Medications Medications: Current Medications Acetaminophen (Tylenol 325mg Tab) 650 mg PO Q4 DIA Last Admin: 01/30/18 16:12 Dose: Not Given Albuterol/Ipratropium (Duoneb 3 Mg/0.5 Mg (3 Ml) Ud) 3 ml INH RQ6 DIA Last Admin: 02/11/18 13:27 Dose: 3 ml Amlodipine Besylate (Norvasc) 10 mg PO DAILY DIA Last Admin: 02/11/18 09:15 Dose: 10 mg Carvedilol (Coreg) 12.5 mg PO BID DIA Last Admin: 02/11/18 09:15 Dose: 12.5 mg Epoetin Alexandr (Procrit) 10,000 unit IV TTS DIA Last Admin: 02/10/18 15:26 Dose: 10,000 unit Heparin Sodium (Porcine) (Heparin) 1,000 units IVP ONCE DIA Tigecycline 50 mg/ Sodium (Chloride) 100 mls @ 100 mls/hr IVPB Q12H DIA PRN Reason: Protocol Last Admin: 02/11/18 06:00 Dose: 100 mls/hr Insulin Aspart (Novolog) 0 unit SC ACHS DIA PRN Reason: Protocol Last Admin: 02/11/18 12:15 Dose: 4 units Pantoprazole Sodium (Protonix Ec Tab) 40 mg PO DAILY [facility] Last Admin: 02/11/18 09:15 Dose: 40 mg Saccharomyces Boulardii (Florastor) 250 mg PO BID [facility] Last Admin: 02/11/18 09:15 Dose: 250 mg Tramadol HCl (Ultram) 50 mg PO Q6H PRN PRN Reason: Pain, moderate (4-7) - Labs Labs: 02/10/18 22:02 02/10/18 22:02 PT 13.2 SECONDS (9.7-12.2) H 02/06/18 06:15 INR 1.2 02/06/18 06:15 APTT 31 SECONDS (21-34) 02/06/18 06:15 - Constitutional Appears: Well, Non-toxic, No Acute Distress - Head Exam Head Exam: ATRAUMATIC, NORMOCEPHALIC - Extremities Exam Additional comments: Left LE focused exam: Vasc: DP/PT 1/4 B/L, Cap refill delayed > 3 sec in all digits, Temp gradient warm to cool. No edema. Neuro: Gross and protective sensation are intact. Derm: Surgical incision site appears clean, dry, well coapted, with no evidence of wound dehiscence, no malodor, no drainage, No clinical signs of active bacterial infection noted. Toe nails are elongated, dystrophic and discolored in all digits. MSK: No pain on palpation at the surgical site. Partially amputated L hallux is noted. - Neurological Exam Neurological Exam: Alert, Awake, Oriented x3 - Psychiatric Exam Psychiatric exam: Normal Affect, Normal Mood Assessment and Plan - Assessment and Plan (Free Text) Assessment: 62 year old male patient seen and evaluated 5 weeks s/p left hallux partial amputation secondary to gangrene and osteomyelitis Plan: Patient seen and evaluated at the bedside Discussed plan in detail with attending Dr. Logan Left hallux dressed using betadine, DSD and kerlix Patient toe nails debrided using sterile nail nipper, then cleaned with betadine. Patient tolerated the nail debridement well with no acute complications. Patient is stable from podiatry standpoint Podiatry will continue to follow in house
--- NOTE | 2018-02-11 21:13 | PN ---
DATE: 03/03/2018 SUBJECTIVE: The patient says he has been going more often for bowel movement, he did give a sample. He feels otherwise well. His left arm remains swollen, and he does not complain much again in the past of . His leg swelling also persists, but the redness and swelling are gone. There has been peeling which is noted. He is improving otherwise, he is verbalizing. He remains on Tygacil. PHYSICAL EXAMINATION: VITAL SIGNS: T-Max is 97.8, pulse 62, blood pressure 167/70, respirations are 20. HEENT: Head is atraumatic. GENERAL: He is in isolation. We are waiting for the Gold QuantiFERON test. LUNGS: Clear. HEART: S1 and S2 regular. ABDOMEN: Soft. Nontender. EXTREMITIES: He has a peripheral IV on the right forearm and left arm is swollen because of fistula that was placed for the renal. He has a right side dialysis catheter on the chest wall. Extremities remain with edema. No redness now. Skin peeling. Left foot is still with a dressing. LABORATORY DATA: Have been ordered. Labs show white count of 7.5 yesterday and creatinine of 2.1, so creatinine is improving at this time. C. diff was negative. He is on dialysis. At this time, there have been no fevers. We are waiting for the Gold QuantiFERON test to get him out of the isolation, and once he is out of the isolation, I think we can probably get him off Tygacil also, which we started on 02/04/2018, and today is the seventh day of it. Hopefully, he gets off dialysis at this time as his creatinine is decreasing now and he has no new complaints. The patient was having fevers and came in with a probable catheter-related sepsis, also has osteomyelitis of the left fourth great toe which was partially resected and had acute renal failure, now is on dialysis. He is in isolation as he was running fevers and Gold QuantiFERON test was sent. Tiffany Blancas MD
--- NOTE | 2018-02-12 07:42 | CP.PCM.PN ---
Subjective - Date & Time of Evaluation Date of Evaluation: 02/12/18 Time of Evaluation: 07:41 - Subjective Subjective: Internal Medicine Progress Note - Dr Earnestine Deluna Service Patient seen and examined at bedside. Per nursing no acute events overnight. Patient is doing well, offers no complaints at this time. Patient tolerated HD over the weekend. Quantiferon gold is negative, will discontinue airborne isolation at this time. Denies headaches, dizziness, cp, palpitations, sob, abdominal pain, urinary symptoms. Objective - Vital Signs/Intake and Output Vital Signs (last 24 hours): Temp Pulse Resp BP Pulse Ox 98.1 F 57 L 20 146/68 100 02/12/18 00:00 02/12/18 00:00 02/12/18 00:00 02/12/18 00:00 02/12/18 00:00 Intake and Output: 02/12/18 02/12/18 06:59 18:59 Intake Total 240 Balance 240 - Medications Medications: Current Medications Acetaminophen (Tylenol 325mg Tab) 650 mg PO Q4 [facility] Last Admin: 01/30/18 16:12 Dose: Not Given Amlodipine Besylate (Norvasc) 10 mg PO DAILY [facility] Last Admin: 02/11/18 09:15 Dose: 10 mg Carvedilol (Coreg) 12.5 mg PO BID [facility] Last Admin: 02/11/18 17:22 Dose: 12.5 mg Epoetin Alexandr (Procrit) 10,000 unit IV TTS [facility] Last Admin: 02/10/18 15:26 Dose: 10,000 unit Heparin Sodium (Porcine) (Heparin) 1,000 units IVP ONCE [facility] Tigecycline 50 mg/ Sodium (Chloride) 100 mls @ 100 mls/hr IVPB Q12H DIA PRN Reason: Protocol Last Admin: 02/12/18 05:55 Dose: 100 mls/hr Insulin Aspart (Novolog) 0 unit SC ACHS DIA PRN Reason: Protocol Last Admin: 02/11/18 21:31 Dose: Not Given Pantoprazole Sodium (Protonix Ec Tab) 40 mg PO DAILY [facility] Last Admin: 02/11/18 09:15 Dose: 40 mg Saccharomyces Boulardii (Florastor) 250 mg PO BID [facility] Last Admin: 02/11/18 17:23 Dose: 250 mg Tramadol HCl (Ultram) 50 mg PO Q6H PRN PRN Reason: Pain, moderate (4-7) - Labs Labs: 02/10/18 22:02 02/10/18 22:02 PT 13.2 SECONDS (9.7-12.2) H 02/06/18 06:15 INR 1.2 02/06/18 06:15 APTT 31 SECONDS (21-34) 02/06/18 06:15 - Additional Findings Additional findings: - Constitutional Appears: No Acute Distress - Head Exam Head Exam: ATRAUMATIC, NORMOCEPHALIC - Eye Exam Eye Exam: EOMI - ENT Exam ENT Exam: Mucous Membranes Moist - Respiratory Exam Respiratory Exam: Decreased Breath Sounds, Rales - Cardiovascular Exam Cardiovascular Exam: +S1, +S2 - GI/Abdominal Exam GI & Abdominal Exam: Soft, Normal Bowel Sounds. absent: Tenderness - Extremities Exam Additional comments: left upper extremity AVF site wrapped in clean gauze. Auscultatory bruit present b/l lower extremities with 1+ pitting edema - Neurological Exam Neurological Exam: Alert, Awake - Skin Skin Exam: Warm Assessment and Plan - Assessment and Plan (Free Text) Assessment: ARF -02/08/18: Patient status post left bidirectional brachial artery to antecubital vein fistula placement with Dr. Haro on 02/06/18 -02/01: will check 24 hour urine protein per nephrology -01/31: patient s/p permacath placement with Dr. Haro 01/30. Received dialysis late yesterday. Repeat dialysis this afternoon 01/31. Will have HD MWF. -02/06/18: s/p Left Bidirectional Brachial Artery to Antecubital Vein Fistula -Dr. 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 All cultures negative. [facility] Blancas. Quantiferon negative, sputum culture ordered 02/05: Afebrile WBC 9.8 No bands Blood cultures from 01/31 no growth at 5 days Patient switched to Tigecycline and Meropenem over the weekend 02/02: Afebrile overnight WBC 9 Repeat blood culture from 01/31 negative after 24 hours Continue with Vancomycin and Meropenem. Zyvox and Aztreonem discontinued on per ID Follow up MRI to r/o osteomyelitis 02/01: patient febrile overnight again, Tmax 101 WBC 9.5 antibiotic regimen adjusted by Dr. Blancas: aztreonam 1g q24, vancomycin added on dialysis days (MW), meropenem q12 IVPB repeat blood culture ordered as well as stool for ova and parasite due to eosinophilia 01/31: Febrile overnight at 102.6F. Started Aztreonam 1Gm IVPB q24H. Currently on: Aztreonam 1Gm IVPB q24H (started 01/30) Zyvox 600mg PO BID (started 01/29) Meropenem 500mg IVPB Q12 (started 01/30) L foot xray 01/31- negative CT chest/abd/pelv 01/30- Bilateral pleural effusion with lower lobe subsegmental atelectasis. Chronic pancreatitis. Mildly dilated main pulmonary artery. Correlate for any history of pulmonary arterial hypertension. Thickened bladder wall. Possible artifact due to outlet obstruction or cystitis. Anasarca. See full report. 01/30: WBC 10.2 today. Last fever on 01/27. Dr. Blancas, ID, consulted- help appreciated SIRS criteria present on admission (01/25): Temperature 101.2F, HR 106 SOFA score approximately 9 (no ABG for PaO2) initial VBG lactate (01/25) 4.1, repeat 1.0 procalcitonin 5.74 suspected possible sources include: line infection from prior PICC line- culture from (01/25) negative bacteremia- blood culture negative after 4 days pneumonia- chest CT negative for infiltrate however patient was dyspneic on admission, sputum culture uncollected urine- (01/25) urine culture negative prior hallux amputation site- recent amputation for osteomyelitis and was on IV abx prior to this admission. Podiatry team, Dr. Logan, consulted- recommendations appreciated patient on antibiotics: Tigecycline 50mg IVPB q12h (started 02/04) (discontinued) Meropenem 500mg IVPB q12h (started 02/04) (discontinued) patient previously on antibiotics: gentamicin 120mg x 1 dose (01/25) vancomycin x 1 dose (01/25) zosyn (01/25- 01/28) zyvox 600mg IVPB 12h (started 01/25) aztreonam 1gam IVPB q8h (started 01/28) medications adjusted due to kidney function Dyspnea (resolved) -02/05: ECHO - EF ~65%, large left pleural effusion, otherwise normal ECHO -02/02: patient underwent echo, follow up results -02/01: chest xray with worsening pulmonary vascular congestion, will check echo -CT Chest: pulmonary vascular congestion with small to moderate bilateral pleural effusions and subjacent atelectasis (see full report) continue lasix 80mg IVP daily -BNP 9070 -no echocardiogram in our EMR -Quantiferon negative Transaminitis - resolved -02/09 AST/ALT 31/38 -02/05: continue downtrending AST 29/ALT 53, Alk Phos 160 -02/02: continue downtrending AST/ALT 60/85 today -01/31: downtrending LFTs after stopping Tylenol. Continue Ultram 50mg PO q6H PRN pain. -01/30: AST stable 142. ALT 129 and AlkP 190 uptrending. Stop Tylenol PRN. Start Ultram 50mg PO q6H PRN pain. -AST/ ALT/ Alk phos increasing, today 175/ 121/180 -T. Bili not elevated at 0.7 -Hepatitis A & B negative, Hepatitis C negative, RPR, HIV negative HTN -Will continue to monitor and adjust as needed -Norvasc 10mg PO daily -Coreg 12.5mg PO BID DM -ISS Accucheck ACHS -A1c 7.0 in 12/2017 -holding all PO meds currently due to renal function -left hallux amputation site bandaged Left hallux amputation -Procedure performed on last admission -Dr. Logan, podiatry, following while patient in-house Prophylactic measure -Heparin 5,000 unit Q12h (renal dosing) -protonix 40mg IVP daily -SCDs All medical management as per Dr. Mikie Steiner DO PGY-2
[2018-02-12] MEDS: (Novolog) Insulin Aspart, Recombinant 100 u/ml 10 ml vial SC SCH ×4 (08:39→21:30)
[2018-02-12] MEDS: Saccharomyces Boulardi 250 mg Cap PO SCH ×2 (09:34→17:14)
[2018-02-12] MEDS: Pantoprazole 40 mg EC Tab PO SCH (09:34)
[2018-02-12 11:18] LABS: BASO # 0.2 K/uL (0.0-0.2); BASO % 2.6 % (0.0-2.0); EOS % 0.6 % (0.0-4.0); HEMOGLOBIN 8.9 g/dL (12.0-18.0); LYMPH # 1.3 K/uL (1.0-4.3); MEAN CELL VOLUME 87.8 fL (80.0-94.0); MEAN CORPUSCULAR HEMOGLOBIN 30.4 pg (27.0-31.0); MEAN CORPUSCULAR HGB CONC 34.6 g/dL (33.0-37.0); MEAN PLATELET VOLUME 7.3 fL (7.2-11.7); MONO # 0.9 K/uL (0.0-0.8); MONO % 12.1 % (0.0-10.0); NEUT # 5.1 K/uL (1.8-7.0); NEUT % 67.7 % (50.0-75.0); NRBC % 0.3 % (0.0-2.0); RBC 2.93 Mil/uL (4.40-5.90); RED CELL DISTRIBUTION WIDTH 14.4 % (11.5-14.5); WHITE BLOOD COUNT 7.5 K/uL (4.8-10.8)
[2018-02-12 11:34] LABS: ALBUMIN 3.3 g/dL (3.5-5.0)
--- NOTE | 2018-02-12 11:59 | CP.PCM.PN ---
Subjective - Date & Time of Evaluation Date of Evaluation: 02/12/18 Time of Evaluation: 11:56 - Subjective Subjective: alert; feels better afebrile course now BP labile off respiratory isolation last dialysis 02/10- tolerated well wounds being addressed by surgery Objective - Vital Signs/Intake and Output Vital Signs (last 24 hours): Temp Pulse Resp BP Pulse Ox 98 F 72 18 175/65 H 97 02/12/18 08:00 02/12/18 08:00 02/12/18 08:00 02/12/18 09:34 02/12/18 08:00 Intake and Output: 02/12/18 02/12/18 06:59 18:59 Intake Total 240 Balance 240 - Medications Medications: Current Medications Acetaminophen (Tylenol 325mg Tab) 650 mg PO Q4 [facility] Last Admin: 01/30/18 16:12 Dose: Not Given Amlodipine Besylate (Norvasc) 10 mg PO DAILY [facility] Last Admin: 02/12/18 09:34 Dose: 10 mg Carvedilol (Coreg) 25 mg PO BID [facility] Epoetin Alexandr (Procrit) 10,000 unit IV TTS [facility] Last Admin: 02/10/18 15:26 Dose: 10,000 unit Heparin Sodium (Porcine) (Heparin) 1,000 units IVP ONCE [facility] Tigecycline 50 mg/ Sodium (Chloride) 100 mls @ 100 mls/hr IVPB Q12H DIA PRN Reason: Protocol Last Admin: 02/12/18 05:55 Dose: 100 mls/hr Insulin Aspart (Novolog) 0 unit SC ACHS DIA PRN Reason: Protocol Pantoprazole Sodium (Protonix Ec Tab) 40 mg PO DAILY [facility] Last Admin: 02/12/18 09:34 Dose: 40 mg Saccharomyces Boulardii (Florastor) 250 mg PO BID [facility] Last Admin: 02/12/18 09:34 Dose: 250 mg Tramadol HCl (Ultram) 50 mg PO Q6H PRN PRN Reason: Pain, moderate (4-7) - Labs Labs: 02/12/18 11:06 02/12/18 11:06 PT 13.2 SECONDS (9.7-12.2) H 02/06/18 06:15 INR 1.2 02/06/18 06:15 APTT 31 SECONDS (21-34) 02/06/18 06:15 - Constitutional Appears: No Acute Distress, Chronically Ill - Head Exam Head Exam: ATRAUMATIC, NORMAL INSPECTION - Eye Exam Eye Exam: EOMI, Normal appearance - Neck Exam Neck Exam: Normal Inspection. absent: Tenderness - Respiratory Exam Respiratory Exam: Clear to Ausculation Bilateral, NORMAL BREATHING PATTERN - Cardiovascular Exam Cardiovascular Exam: REGULAR RHYTHM, +S1 - GI/Abdominal Exam GI & Abdominal Exam: Soft. absent: Tenderness - Extremities Exam Extremities Exam: Pedal Edema, Tenderness - Neurological Exam Neurological Exam: Awake, CN II-XII Intact - Skin Skin Exam: Dry, Warm Assessment and Plan (1) Type 2 diabetes mellitus with diabetic nephropathy Status: Acute (2) Fever Status: Acute (3) Diabetes 1.5, managed as type 2 Status: Acute (4) Nonhealing ulcer of left lower extremity Status: Acute (5) CHF (congestive heart failure) Status: Acute (6) ESRD (end stage renal disease) Status: Acute - Assessment and Plan (Free Text) Plan: dialysis TTS Await AV access maturation wound care/ IV ABs Increase BP med dosage dialysis placement soon
--- NOTE | 2018-02-12 14:39 | CP.PCM.PN ---
Subjective - Date & Time of Evaluation Date of Evaluation: 02/12/18 Time of Evaluation: 02:15 - Subjective Subjective: dictated Objective - Vital Signs/Intake and Output Vital Signs (last 24 hours): Temp Pulse Resp BP Pulse Ox 98 F 72 18 175/65 H 97 02/12/18 08:00 02/12/18 08:00 02/12/18 08:00 02/12/18 09:34 02/12/18 08:00 Intake and Output: 02/12/18 02/12/18 06:59 18:59 Intake Total 240 Balance 240 - Medications Medications: Current Medications Acetaminophen (Tylenol 325mg Tab) 650 mg PO Q4 [facility] Last Admin: 01/30/18 16:12 Dose: Not Given Amlodipine Besylate (Norvasc) 10 mg PO DAILY [facility] Last Admin: 02/12/18 09:34 Dose: 10 mg Carvedilol (Coreg) 25 mg PO BID [facility] Epoetin Alexandr (Procrit) 10,000 unit IV TTS [facility] Last Admin: 02/10/18 15:26 Dose: 10,000 unit Heparin Sodium (Porcine) (Heparin) 1,000 units IVP ONCE [facility] Tigecycline 50 mg/ Sodium (Chloride) 100 mls @ 100 mls/hr IVPB Q12H DIA PRN Reason: Protocol Last Admin: 02/12/18 05:55 Dose: 100 mls/hr Insulin Aspart (Novolog) 0 unit SC ACHS DIA PRN Reason: Protocol Last Admin: 02/12/18 12:14 Dose: 4 units Pantoprazole Sodium (Protonix Ec Tab) 40 mg PO DAILY [facility] Last Admin: 02/12/18 09:34 Dose: 40 mg Saccharomyces Boulardii (Florastor) 250 mg PO BID [facility] Last Admin: 02/12/18 09:34 Dose: 250 mg Tramadol HCl (Ultram) 50 mg PO Q6H PRN PRN Reason: Pain, moderate (4-7) - Labs Labs: 02/12/18 11:06 02/12/18 11:06 PT 13.2 SECONDS (9.7-12.2) H 02/06/18 06:15 INR 1.2 02/06/18 06:15 APTT 31 SECONDS (21-34) 02/06/18 06:15
--- NOTE | 2018-02-12 20:56 | CP.PCM.PN ---
Subjective - Date & Time of Evaluation Date of Evaluation: 02/12/18 Time of Evaluation: 08:00 - Subjective Subjective: clinically same Objective - Vital Signs/Intake and Output Vital Signs (last 24 hours): Temp Pulse Resp BP Pulse Ox 98 F 60 20 152/68 H 95 02/12/18 16:14 02/12/18 16:14 02/12/18 16:14 02/12/18 17:14 02/12/18 16:14 - Medications Medications: Current Medications Acetaminophen (Tylenol 325mg Tab) 650 mg PO Q4 [facility] Last Admin: 01/30/18 16:12 Dose: Not Given Amlodipine Besylate (Norvasc) 10 mg PO DAILY [facility] Last Admin: 02/12/18 09:34 Dose: 10 mg Carvedilol (Coreg) 25 mg PO BID [facility] Last Admin: 02/12/18 17:14 Dose: 25 mg Epoetin Alexandr (Procrit) 10,000 unit IV TTS [facility] Last Admin: 02/10/18 15:26 Dose: 10,000 unit Heparin Sodium (Porcine) (Heparin) 1,000 units IVP ONCE [facility] Insulin Aspart (Novolog) 0 unit SC ACHS [facility] PRN Reason: Protocol Last Admin: 02/12/18 17:14 Dose: 4 units Pantoprazole Sodium (Protonix Ec Tab) 40 mg PO DAILY [facility] Last Admin: 02/12/18 09:34 Dose: 40 mg Saccharomyces Boulardii (Florastor) 250 mg PO BID [facility] Last Admin: 02/12/18 17:14 Dose: 250 mg Tramadol HCl (Ultram) 50 mg PO Q6H PRN PRN Reason: Pain, moderate (4-7) - Labs Labs: 02/12/18 11:06 02/12/18 11:06 PT 13.2 SECONDS (9.7-12.2) H 02/06/18 06:15 INR 1.2 02/06/18 06:15 APTT 31 SECONDS (21-34) 02/06/18 06:15 - Constitutional Appears: Well - Head Exam Head Exam: ATRAUMATIC, NORMAL INSPECTION, NORMOCEPHALIC - Eye Exam Eye Exam: EOMI, Normal appearance, PERRL Pupil Exam: NORMAL ACCOMODATION, PERRL - ENT Exam ENT Exam: Mucous Membranes Moist, Normal Exam - Neck Exam Neck Exam: Full ROM, Normal Inspection. absent: Lymphadenopathy - Respiratory Exam Respiratory Exam: Decreased Breath Sounds - Cardiovascular Exam Cardiovascular Exam: REGULAR RHYTHM, +S1, +S2 - GI/Abdominal Exam GI & Abdominal Exam: Soft, Diminished Bowel Sounds - Rectal Exam Rectal Exam: Deferred Assessment and Plan (1) MANDY (acute kidney injury) Status: Acute (2) CHF (congestive heart failure) Status: Acute (3) ESRD (end stage renal disease) Status: Acute (4) Fever Status: Acute (5) Hospital-acquired pneumonia Status: Acute (6) Renal insufficiency Status: Acute (7) Type 2 diabetes mellitus with diabetic nephropathy Status: Acute (8) Diabetes 1.5, managed as type 2 Status: Acute (9) Hypertension Status: Acute (10) Nonhealing ulcer of left lower extremity Status: Acute (11) Osteomyelitis Status: Acute
--- NOTE | 2018-02-13 07:16 | CP.PCM.PN ---
<Aylin Steiner - Last Filed: 02/13/18 15:04> Subjective - Date & Time of Evaluation Date of Evaluation: 02/13/18 Time of Evaluation: 07:15 - Subjective Subjective: Internal Medicine Progress Note - Dr Earnestine Deluna Service Patient seen and examined at bedside. Per nursing no acute events overnight. Patient is doing well, offers no complaints at this time. Patient for hemodialysis today. Denies headaches, dizziness, cp, palpitations, sob, abdominal pain, urinary symptoms. Objective - Vital Signs/Intake and Output Vital Signs (last 24 hours): Temp Pulse Resp BP Pulse Ox 98.1 F 51 L 20 133/68 98 02/13/18 00:00 02/13/18 00:00 02/13/18 00:00 02/13/18 00:00 02/13/18 00:00 Intake and Output: 02/13/18 02/13/18 06:59 18:59 Intake Total 500 Balance 500 - Medications Medications: Current Medications Acetaminophen (Tylenol 325mg Tab) 650 mg PO Q4 [facility] Last Admin: 01/30/18 16:12 Dose: Not Given Amlodipine Besylate (Norvasc) 10 mg PO DAILY [facility] Last Admin: 02/12/18 09:34 Dose: 10 mg Carvedilol (Coreg) 25 mg PO BID [facility] Last Admin: 02/12/18 17:14 Dose: 25 mg Epoetin Alexandr (Procrit) 10,000 unit IV TTS [facility] Last Admin: 02/10/18 15:26 Dose: 10,000 unit Heparin Sodium (Porcine) (Heparin) 1,000 units IVP ONCE [facility] Insulin Aspart (Novolog) 0 unit SC ACHS [facility] PRN Reason: Protocol Last Admin: 02/12/18 21:30 Dose: Not Given Pantoprazole Sodium (Protonix Ec Tab) 40 mg PO DAILY [facility] Last Admin: 02/12/18 09:34 Dose: 40 mg Saccharomyces Boulardii (Florastor) 250 mg PO BID [facility] Last Admin: 02/12/18 17:14 Dose: 250 mg Tramadol HCl (Ultram) 50 mg PO Q6H PRN PRN Reason: Pain, moderate (4-7) - Labs Labs: 02/12/18 11:06 02/12/18 11:06 PT 13.2 SECONDS (9.7-12.2) H 02/06/18 06:15 INR 1.2 02/06/18 06:15 APTT 31 SECONDS (21-34) 02/06/18 06:15 - Additional Findings Additional findings: - Constitutional Appears: No Acute Distress - Head Exam Head Exam: ATRAUMATIC, NORMOCEPHALIC - Eye Exam Eye Exam: EOMI - ENT Exam ENT Exam: Mucous Membranes Moist - Respiratory Exam Respiratory Exam: Decreased Breath Sounds, Rales - Cardiovascular Exam Cardiovascular Exam: +S1, +S2 - GI/Abdominal Exam GI & Abdominal Exam: Soft, Normal Bowel Sounds. absent: Tenderness - Extremities Exam Additional comments: left upper extremity AVF site wrapped in clean gauze. Auscultatory bruit present b/l lower extremities with 1+ pitting edema - Neurological Exam Neurological Exam: Alert, Awake - Skin Skin Exam: Warm Assessment and Plan - Assessment and Plan (Free Text) Assessment: ARF -02/08/18: Patient status post left bidirectional brachial artery to antecubital vein fistula placement with Dr. Haro on 02/06/18 -02/01: will check 24 hour urine protein per nephrology -01/31: patient s/p permacath placement with Dr. Haro 01/30. Received dialysis late yesterday. Repeat dialysis this afternoon 01/31. Will have HD MWF. -02/06/18: s/p Left Bidirectional Brachial Artery to Antecubital Vein Fistula -Dr. 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 All cultures negative. Pt to have Ceretec WBC scan per Dr. Blancas. Quantiferon negative, sputum culture ordered 02/05: Afebrile WBC 9.8 No bands Blood cultures from 01/31 no growth at 5 days Patient switched to Tigecycline and Meropenem over the weekend 02/02: Afebrile overnight WBC 9 Repeat blood culture from 01/31 negative after 24 hours Continue with Vancomycin and Meropenem. Zyvox and Aztreonem discontinued on per ID Follow up MRI to r/o osteomyelitis 02/01: patient febrile overnight again, Tmax 101 WBC 9.5 antibiotic regimen adjusted by Dr. Blancas: aztreonam 1g q24, vancomycin added on dialysis days (MWF), meropenem q12 IVPB repeat blood culture ordered as well as stool for ova and parasite due to eosinophilia 01/31: Febrile overnight at 102.6F. Started Aztreonam 1Gm IVPB q24H. Currently on: Aztreonam 1Gm IVPB q24H (started 01/30) Zyvox 600mg PO BID (started 01/29) Meropenem 500mg IVPB Q12 (started 01/30) L foot xray 01/31- negative CT chest/abd/pelv 01/30- Bilateral pleural effusion with lower lobe subsegmental atelectasis. Chronic pancreatitis. Mildly dilated main pulmonary artery. Correlate for any history of pulmonary arterial hypertension. Thickened bladder wall. Possible artifact due to outlet obstruction or cystitis. Anasarca. See full report. 01/30: WBC 10.2 today. Last fever on 01/27. Dr. Blancas, ID, consulted- help appreciated SIRS criteria present on admission (01/25): Temperature 101.2F, HR 106 SOFA score approximately 9 (no ABG for PaO2) initial VBG lactate (01/25) 4.1, repeat 1.0 procalcitonin 5.74 suspected possible sources include: line infection from prior PICC line- culture from (01/25) negative bacteremia- blood culture negative after 4 days pneumonia- chest CT negative for infiltrate however patient was dyspneic on admission, sputum culture uncollected urine- (01/25) urine culture negative prior hallux amputation site- recent amputation for osteomyelitis and was on IV abx prior to this admission. Podiatry team, Dr. Logan, consulted- recommendations appreciated patient on antibiotics: Tigecycline 50mg IVPB q12h (started 02/04) (discontinued) Meropenem 500mg IVPB q12h (started 02/04) (discontinued) patient previously on antibiotics: gentamicin 120mg x 1 dose (01/25) vancomycin x 1 dose (01/25) zosyn (01/25- 01/28) zyvox 600mg IVPB 12h (started 01/25) aztreonam 1gam IVPB q8h (started 01/28) medications adjusted due to kidney function Dyspnea (resolved) -02/05: ECHO - EF ~65%, large left pleural effusion, otherwise normal ECHO -02/02: patient underwent echo, follow up results -02/01: chest xray with worsening pulmonary vascular congestion, will check echo -CT Chest: pulmonary vascular congestion with small to moderate bilateral pleural effusions and subjacent atelectasis (see full report) continue lasix 80mg IVP daily -BNP 9070 -no echocardiogram in our EMR -Quantiferon negative Transaminitis - resolved -02/09 AST/ALT 31/38 -02/05: continue downtrending AST 29/ALT 53, Alk Phos 160 -02/02: continue downtrending AST/ALT 60/85 today -01/31: downtrending LFTs after stopping Tylenol. Continue Ultram 50mg PO q6H PRN pain. -01/30: AST stable 142. ALT 129 and AlkP 190 uptrending. Stop Tylenol PRN. Start Ultram 50mg PO q6H PRN pain. -AST/ ALT/ Alk phos increasing, today 175/ 121/180 -T. Bili not elevated at 0.7 -Hepatitis A & B negative, Hepatitis C negative, RPR, HIV negative HTN -Will continue to monitor and adjust as needed -Norvasc 10mg PO daily -Coreg 12.5mg PO BID DM -ISS Accucheck ACHS -A1c 7.0 in 12/2017 -holding all PO meds currently due to renal function -left hallux amputation site bandaged Left hallux amputation -Procedure performed on last admission -Dr. Logan, podiatry, following while patient in-house Prophylactic measure -Heparin 5,000 unit Q12h (renal dosing) -protonix 40mg IVP daily -SCDs All medical management as per Dr. Mikie Steiner DO PGY-2 <Dariana Deluna S - Last Filed: 02/13/18 18:37> Objective - Vital Signs/Intake and Output Vital Signs (last 24 hours): Temp Pulse Resp BP Pulse Ox 98.5 F 63 20 152/67 H 98 02/13/18 16:05 02/13/18 16:05 02/13/18 16:05 02/13/18 17:08 02/13/18 16:05 Intake and Output: 02/13/18 02/13/18 06:59 18:59 Intake Total 500 Balance 500 - Medications Medications: Current Medications Amlodipine Besylate (Norvasc) 10 mg PO DAILY [facility] Last Admin: 02/13/18 10:31 Dose: Not Given Carvedilol (Coreg) 25 mg PO BID [facility] Last Admin: 02/13/18 17:08 Dose: 25 mg Epoetin Alexandr (Procrit) 10,000 unit IV TTS [facility] Last Admin: 02/13/18 13:57 Dose: Not Given Heparin Sodium (Porcine) (Heparin) 1,000 units IVP ONCE [facility] Last Admin: 02/13/18 11:44 Dose: 1,000 units Insulin Aspart (Novolog) 0 unit SC ACHS [facility] PRN Reason: Protocol Last Admin: 02/13/18 17:08 Dose: 2 units Pantoprazole Sodium (Protonix Ec Tab) 40 mg PO DAILY [facility] Last Admin: 02/13/18 10:32 Dose: Not Given Saccharomyces Boulardii (Florastor) 250 mg PO BID [facility] Last Admin: 02/13/18 17:08 Dose: 250 mg Tramadol HCl (Ultram) 50 mg PO Q6H PRN PRN Reason: Pain, moderate (4-7) - Labs Labs: 02/13/18 08:16 02/13/18 07:50 PT 13.2 SECONDS (9.7-12.2) H 02/06/18 06:15 INR 1.2 02/06/18 06:15 APTT 31 SECONDS (21-34) 02/06/18 06:15 Attending/Attestation - Attestation I have personally seen and examined this patient.: Yes I have fully participated in the care of the patient.: Yes I have reviewed all pertinent clinical information, including history, physical exam and plan: Yes Notes (Text): case seen and d.w staff and resident, concurred with finding and management..
--- NOTE | 2018-02-13 07:35 | PN ---
DATE: 02/12/2018 SUBJECTIVE: His family members are at the bedside. He does not give any complaints. No pains. He does have leg swellings. Left arm swelling is decreasing at this time. He has no more fevers reported. OBJECTIVE: VITAL SIGNS: T max is 98.1; blood pressure is 175/65 at this time, it is a little elevated; respirations are 18. GENERAL: He is alert and awake. HEENT: Head is atraumatic and normocephalic. NECK: Supple. LUNGS: Clear. HEART: S1, S2 is regular. ABDOMEN: Soft, nontender. EXTREMITIES: Both legs remain with edema, but there is no cellulitis. The left foot has a dressing at this time. We will find out from Dr. Logan if he needs to continue to have dressings as we are planning to discharge him. I will discontinue the Tygacil today as he has no fevers. White count is 7.5, hemoglobin 8.9, hematocrit 25.7, platelet count is 301,000, BUN is 46, creatinine is 3, it is again elevated. Sugar is 179, and the patient had a fistula placed for the dialysis and also has a catheter at this time. We will repeat the labs tomorrow to see how his labs are and to place him on physical therapy and we will follow. The patient did come in with septicemia, was with fever and chills, most likely had acute renal failure, status post osteomyelitis and partial resection of the left great toe and is now clinically better and to discontinue antibiotics, and he also needs some physical therapy, and his gold QuantiFERON test is negative, so we have discontinued the isolation also. He will probably need to be followed for dialysis with renal attending and with the primary as outpatient or may go to the rehab, I am not sure. I will get physical therapy at this time. Tiffany Blancas MD
--- NOTE | 2018-02-13 07:35 | PN ---
DATE: 02/12/2018 SUBJECTIVE: The patient is feeling a lot better. He does not have any other complaints. I planned to discontinue the antibiotics today. His left arm swelling still persists, but is admitted give time to heal, but there is no cellulitis noted and his family is here ____ Tiffany Blancas MD
[2018-02-13 08:08] LABS: BASO # 0.1 K/uL (0.0-0.2); EOS % 0.5 % (0.0-4.0); HEMOGLOBIN 8.2 g/dL (12.0-18.0); LYMPH # 1.2 K/uL (1.0-4.3); LYMPH % 17.8 % (20.0-40.0); MEAN CELL VOLUME 87.6 fL (80.0-94.0); MEAN CORPUSCULAR HEMOGLOBIN 30.2 pg (27.0-31.0); MEAN CORPUSCULAR HGB CONC 34.5 g/dL (33.0-37.0); MONO # 0.7 K/uL (0.0-0.8); MONO % 10.7 % (0.0-10.0); NEUT # 4.5 K/uL (1.8-7.0); NRBC % 0.2 % (0.0-2.0); RBC 2.71 Mil/uL (4.40-5.90); RED CELL DISTRIBUTION WIDTH 14.6 % (11.5-14.5); WHITE BLOOD COUNT 6.5 K/uL (4.8-10.8)
[2018-02-13] MEDS: (Novolog) Insulin Aspart, Recombinant 100 u/ml 10 ml vial SC SCH ×4 (08:25→21:29)
--- NOTE | 2018-02-13 08:29 | CP.PCM.PN ---
Subjective - Date & Time of Evaluation Date of Evaluation: 02/13/18 Time of Evaluation: 08:28 - Subjective Subjective: seen and examined in hd no complaints labs noted Objective - Vital Signs/Intake and Output Vital Signs (last 24 hours): Temp Pulse Resp BP Pulse Ox 97.5 F L 59 L 20 155/73 H 100 02/13/18 08:00 02/13/18 08:00 02/13/18 08:00 02/13/18 08:00 02/13/18 08:00 Intake and Output: 02/13/18 02/13/18 06:59 18:59 Intake Total 500 Balance 500 - Medications Medications: Current Medications Acetaminophen (Tylenol 325mg Tab) 650 mg PO Q4 [facility] Last Admin: 01/30/18 16:12 Dose: Not Given Amlodipine Besylate (Norvasc) 10 mg PO DAILY [facility] Last Admin: 02/12/18 09:34 Dose: 10 mg Carvedilol (Coreg) 25 mg PO BID [facility] Last Admin: 02/12/18 17:14 Dose: 25 mg Epoetin Alexandr (Procrit) 10,000 unit IV TTS [facility] Last Admin: 02/10/18 15:26 Dose: 10,000 unit Heparin Sodium (Porcine) (Heparin) 1,000 units IVP ONCE [facility] Insulin Aspart (Novolog) 0 unit SC ACHS [facility] PRN Reason: Protocol Last Admin: 02/12/18 21:30 Dose: Not Given Pantoprazole Sodium (Protonix Ec Tab) 40 mg PO DAILY [facility] Last Admin: 02/12/18 09:34 Dose: 40 mg Saccharomyces Boulardii (Florastor) 250 mg PO BID [facility] Last Admin: 02/12/18 17:14 Dose: 250 mg Tramadol HCl (Ultram) 50 mg PO Q6H PRN PRN Reason: Pain, moderate (4-7) - Labs Labs: 02/13/18 08:16 02/12/18 11:06 PT 13.2 SECONDS (9.7-12.2) H 02/06/18 06:15 INR 1.2 02/06/18 06:15 APTT 31 SECONDS (21-34) 02/06/18 06:15 - Constitutional Appears: No Acute Distress, Chronically Ill - Head Exam Head Exam: NORMAL INSPECTION, NORMOCEPHALIC - Eye Exam Eye Exam: Normal appearance, PERRL - ENT Exam ENT Exam: Mucous Membranes Moist, Normal Exam - Neck Exam Neck Exam: Full ROM, Normal Inspection - Respiratory Exam Respiratory Exam: Clear to Ausculation Bilateral, NORMAL BREATHING PATTERN - Cardiovascular Exam Cardiovascular Exam: REGULAR RHYTHM, RRR - GI/Abdominal Exam GI & Abdominal Exam: Distended, Soft - Extremities Exam Extremities Exam: Normal Inspection - Neurological Exam Neurological Exam: Alert, Awake - Psychiatric Exam Psychiatric exam: Normal Affect, Normal Mood - Skin Skin Exam: Dry, Warm Assessment and Plan (1) ESRD (end stage renal disease) Status: Acute (2) Type 2 diabetes mellitus with diabetic nephropathy Status: Acute (3) Hypertension Status: Acute (4) Nonhealing ulcer of left lower extremity Status: Acute (5) Osteomyelitis Status: Acute - Assessment and Plan (Free Text) Assessment: hd mwf, monitor for renal recovery off antibiotics maturing avf await placement on yoon
[2018-02-13 08:44] LABS: ALB/GLOB RATIO 0.9 (1.0-2.1); ALBUMIN 2.9 g/dL (3.5-5.0); CALCIUM 7.9 mg/dl (8.6-10.4)
[2018-02-13] MEDS: Saccharomyces Boulardi 250 mg Cap PO SCH ×2 (10:31→17:08)
[2018-02-13] MEDS: Pantoprazole 40 mg EC Tab PO SCH (10:32)
--- NOTE | 2018-02-13 11:29 | CP.PCM.PN ---
Subjective - Date & Time of Evaluation Date of Evaluation: 02/13/18 Time of Evaluation: 08:00 - Subjective Subjective: clinically same Objective - Vital Signs/Intake and Output Vital Signs (last 24 hours): Temp Pulse Resp BP Pulse Ox 97.9 F 56 L 16 171/87 H 99 02/13/18 10:15 02/13/18 10:15 02/13/18 11:00 02/13/18 11:00 02/13/18 11:00 Intake and Output: 02/13/18 02/13/18 06:59 18:59 Intake Total 500 Balance 500 - Medications Medications: Current Medications Amlodipine Besylate (Norvasc) 10 mg PO DAILY [facility] Last Admin: 02/13/18 10:31 Dose: Not Given Carvedilol (Coreg) 25 mg PO BID [facility] Last Admin: 02/13/18 10:31 Dose: Not Given Epoetin Alexandr (Procrit) 10,000 unit IV TTS [facility] Last Admin: 02/10/18 15:26 Dose: 10,000 unit Heparin Sodium (Porcine) (Heparin) 1,000 units IVP ONCE [facility] Insulin Aspart (Novolog) 0 unit SC ACHS [facility] PRN Reason: Protocol Last Admin: 02/13/18 08:25 Dose: 6 units Pantoprazole Sodium (Protonix Ec Tab) 40 mg PO DAILY [facility] Last Admin: 02/13/18 10:32 Dose: Not Given Saccharomyces Boulardii (Florastor) 250 mg PO BID [facility] Last Admin: 02/13/18 10:31 Dose: Not Given Tramadol HCl (Ultram) 50 mg PO Q6H PRN PRN Reason: Pain, moderate (4-7) - Labs Labs: 02/13/18 08:16 02/13/18 07:50 PT 13.2 SECONDS (9.7-12.2) H 02/06/18 06:15 INR 1.2 02/06/18 06:15 APTT 31 SECONDS (21-34) 02/06/18 06:15 - Constitutional Appears: Well - Head Exam Head Exam: ATRAUMATIC, NORMAL INSPECTION, NORMOCEPHALIC - Eye Exam Eye Exam: EOMI, Normal appearance, PERRL Pupil Exam: NORMAL ACCOMODATION, PERRL - ENT Exam ENT Exam: Mucous Membranes Moist, Normal Exam - Neck Exam Neck Exam: Full ROM, Normal Inspection. absent: Lymphadenopathy - Respiratory Exam Respiratory Exam: Decreased Breath Sounds - Cardiovascular Exam Cardiovascular Exam: REGULAR RHYTHM, +S1, +S2 - GI/Abdominal Exam GI & Abdominal Exam: Soft, Diminished Bowel Sounds - Rectal Exam Rectal Exam: Deferred Assessment and Plan (1) MANDY (acute kidney injury) Status: Acute (2) CHF (congestive heart failure) Status: Acute (3) ESRD (end stage renal disease) Status: Acute (4) Fever Status: Acute (5) Hospital-acquired pneumonia Status: Acute (6) Renal insufficiency Status: Acute (7) Type 2 diabetes mellitus with diabetic nephropathy Status: Acute (8) Diabetes 1.5, managed as type 2 Status: Acute (9) Hypertension Status: Acute (10) Nonhealing ulcer of left lower extremity Status: Acute (11) Osteomyelitis Status: Acute
[2018-02-13] MEDS: Epoetin Alfa 10,000 unit/ml Dialysis IV SCH ×2 (11:45→13:57)
--- NOTE | 2018-02-13 17:42 | CP.PCM.PN ---
Subjective - Date & Time of Evaluation Date of Evaluation: 02/13/18 Time of Evaluation: 09:30 - Subjective Subjective: Podiatry Progress Note - Dr. Logan 62 year old male patient who is 6 weeks s/p left foot partial hallux amputation seen and evaluated at bedside. Patient is AAOx3 and in NAD. Patient is resting in bed comfortably. Patient denies any other pedal complaints at this time. Patient denies N/V/F/C/SOB/CP/pain on posterior calf since last night. Objective - Vital Signs/Intake and Output Vital Signs (last 24 hours): Temp Pulse Resp BP Pulse Ox 98.5 F 63 20 152/67 H 98 02/13/18 16:05 02/13/18 16:05 02/13/18 16:05 02/13/18 17:08 02/13/18 16:05 Intake and Output: 02/13/18 02/13/18 06:59 18:59 Intake Total 500 Balance 500 - Medications Medications: Current Medications Amlodipine Besylate (Norvasc) 10 mg PO DAILY [facility] Last Admin: 02/13/18 10:31 Dose: Not Given Carvedilol (Coreg) 25 mg PO BID [facility] Last Admin: 02/13/18 17:08 Dose: 25 mg Epoetin Alexandr (Procrit) 10,000 unit IV TTS [facility] Last Admin: 02/13/18 13:57 Dose: Not Given Heparin Sodium (Porcine) (Heparin) 1,000 units IVP ONCE [facility] Last Admin: 02/13/18 11:44 Dose: 1,000 units Insulin Aspart (Novolog) 0 unit SC ACHS [facility] PRN Reason: Protocol Last Admin: 02/13/18 17:08 Dose: 2 units Pantoprazole Sodium (Protonix Ec Tab) 40 mg PO DAILY [facility] Last Admin: 02/13/18 10:32 Dose: Not Given Saccharomyces Boulardii (Florastor) 250 mg PO BID [facility] Last Admin: 02/13/18 17:08 Dose: 250 mg Tramadol HCl (Ultram) 50 mg PO Q6H PRN PRN Reason: Pain, moderate (4-7) - Labs Labs: 02/13/18 08:16 02/13/18 07:50 PT 13.2 SECONDS (9.7-12.2) H 02/06/18 06:15 INR 1.2 02/06/18 06:15 APTT 31 SECONDS (21-34) 02/06/18 06:15 - Constitutional Appears: Well, Non-toxic, No Acute Distress - Extremities Exam Additional comments: Left LE focused exam: Vasc: DP/PT 1/4 B/L, Cap refill delayed > 3 sec in all digits, Temp gradient warm to cool. No edema. Neuro: Gross and protective sensation are intact. Derm: Surgical incision site appears clean, dry, well coapted, with no evidence of wound dehiscence, no malodor, no drainage, No clinical signs of active bacterial infection noted. MSK: No pain on palpation at the surgical site. Partially amputated L hallux is noted. - Neurological Exam Neurological Exam: Alert, Awake, Oriented x3 - Psychiatric Exam Psychiatric exam: Normal Affect, Normal Mood Assessment and Plan - Assessment and Plan (Free Text) Assessment: 62 year old male patient seen and evaluated 6 weeks s/p left hallux partial amputation secondary to gangrene and osteomyelitis Plan: Patient seen and evaluated at the bedside Discussed plan in detail with attending Dr. Logan Left hallux dressed using betadine, DSD and kerlix Patient is stable from podiatry standpoint Podiatry will continue to follow in house
--- NOTE | 2018-02-13 22:21 | CP.PCM.PN ---
Subjective - Date & Time of Evaluation Date of Evaluation: 02/13/18 Time of Evaluation: 03:35 - Subjective Subjective: dictated Objective - Vital Signs/Intake and Output Vital Signs (last 24 hours): Temp Pulse Resp BP Pulse Ox 98.5 F 63 20 152/67 H 98 02/13/18 16:05 02/13/18 16:05 02/13/18 16:05 02/13/18 17:08 02/13/18 16:05 Intake and Output: 02/13/18 02/14/18 18:59 06:59 Intake Total 500 Balance 500 - Medications Medications: Current Medications Amlodipine Besylate (Norvasc) 10 mg PO DAILY [facility] Last Admin: 02/13/18 10:31 Dose: Not Given Carvedilol (Coreg) 25 mg PO BID [facility] Last Admin: 02/13/18 17:08 Dose: 25 mg Epoetin Alexandr (Procrit) 10,000 unit IV TTS [facility] Last Admin: 02/13/18 13:57 Dose: Not Given Heparin Sodium (Porcine) (Heparin) 1,000 units IVP ONCE [facility] Last Admin: 02/13/18 11:44 Dose: 1,000 units Insulin Aspart (Novolog) 0 unit SC ACHS [facility] PRN Reason: Protocol Last Admin: 02/13/18 21:29 Dose: Not Given Pantoprazole Sodium (Protonix Ec Tab) 40 mg PO DAILY [facility] Last Admin: 02/13/18 10:32 Dose: Not Given Saccharomyces Boulardii (Florastor) 250 mg PO BID [facility] Last Admin: 02/13/18 17:08 Dose: 250 mg Tramadol HCl (Ultram) 50 mg PO Q6H PRN PRN Reason: Pain, moderate (4-7) - Labs Labs: 02/13/18 08:16 02/13/18 07:50 PT 13.2 SECONDS (9.7-12.2) H 02/06/18 06:15 INR 1.2 02/06/18 06:15 APTT 31 SECONDS (21-34) 02/06/18 06:15
--- NOTE | 2018-02-14 02:35 | PN ---
DATE: 02/13/2018 SUBJECTIVE: The patient was seen today. He had dialysis. He feels very well. He denies any complaints. He was also seen by the unit director, and the patient is still having Betadine dressings to it, and we will ask attending how long he needs to continue these, and he remains afebrile. OBJECTIVE: VITAL SIGNS: T-max is 98.5, pulse is 63, blood pressure 145/66, respirations are 20. HEENT: Head is atraumatic. NECK: Supple. LUNGS: Clear. HEART: S1, S2 is regular. ABDOMEN: Soft, nontender. No guarding, no rigidity present. EXTREMITIES: The left foot has a dressing. His white count is 6.5, creatinine still remains high at 3.1 even though he is off antibiotics, and he is status post osteomyelitis and gangrene of the left great toe and wound looks to be stable. Tiffany Blancas MD
--- NOTE | 2018-02-14 07:34 | CP.PCM.PN ---
Subjective - Date & Time of Evaluation Date of Evaluation: 02/14/18 Time of Evaluation: 07:33 - Subjective Subjective: Internal Medicine Progress Note - Dr Earnestine Deluna Service Patient seen and examined at bedside. Per nursing no acute events overnight. Per nursing no acute events overnight. Patient is doing well, tolerated dialysis yesterday. Offers no complaints at this time. Denies headaches, dizziness, cp, palpitations, sob, abdominal pain, urinary symptoms. Objective - Vital Signs/Intake and Output Vital Signs (last 24 hours): Temp Pulse Resp BP Pulse Ox 98.6 F 67 20 143/67 100 02/13/18 23:47 02/13/18 23:47 02/13/18 23:47 02/13/18 23:47 02/13/18 23:47 Intake and Output: 02/14/18 02/14/18 06:59 18:59 Intake Total 500 Balance 500 - Medications Medications: Current Medications Amlodipine Besylate (Norvasc) 10 mg PO DAILY [facility] Last Admin: 02/13/18 10:31 Dose: Not Given Carvedilol (Coreg) 25 mg PO BID [facility] Last Admin: 02/13/18 17:08 Dose: 25 mg Epoetin Alexandr (Procrit) 10,000 unit IV TTS [facility] Last Admin: 02/13/18 13:57 Dose: Not Given Heparin Sodium (Porcine) (Heparin) 1,000 units IVP ONCE [facility] Last Admin: 02/13/18 11:44 Dose: 1,000 units Insulin Aspart (Novolog) 0 unit SC ACHS [facility] PRN Reason: Protocol Last Admin: 02/13/18 21:29 Dose: Not Given Pantoprazole Sodium (Protonix Ec Tab) 40 mg PO DAILY [facility] Last Admin: 02/13/18 10:32 Dose: Not Given Saccharomyces Boulardii (Florastor) 250 mg PO BID [facility] Last Admin: 02/13/18 17:08 Dose: 250 mg - Labs Labs: 02/13/18 08:16 02/13/18 07:50 PT 13.2 SECONDS (9.7-12.2) H 02/06/18 06:15 INR 1.2 02/06/18 06:15 APTT 31 SECONDS (21-34) 02/06/18 06:15 - Additional Findings Additional findings: - Constitutional Appears: No Acute Distress - Head Exam Head Exam: ATRAUMATIC, NORMOCEPHALIC - Eye Exam Eye Exam: EOMI - ENT Exam ENT Exam: Mucous Membranes Moist - Respiratory Exam Respiratory Exam: Decreased Breath Sounds, Rales - Cardiovascular Exam Cardiovascular Exam: +S1, +S2 - GI/Abdominal Exam GI & Abdominal Exam: Soft, Normal Bowel Sounds. absent: Tenderness - Extremities Exam Additional comments: left upper extremity AVF site wrapped in clean gauze. Auscultatory bruit present b/l lower extremities with 1+ pitting edema - Neurological Exam Neurological Exam: Alert, Awake - Skin Skin Exam: Warm Assessment and Plan - Assessment and Plan (Free Text) Assessment: ARF -02/08/18: Patient status post left bidirectional brachial artery to antecubital vein fistula placement with Dr. Haro on 02/06/18 -02/01: will check 24 hour urine protein per nephrology -01/31: patient s/p permacath placement with Dr. Haro 01/30. Received dialysis late yesterday. Repeat dialysis this afternoon 01/31. Will have HD MWF. -02/06/18: s/p Left Bidirectional Brachial Artery to Antecubital Vein Fistula -Dr. Burger, nephrology, consulted- help appreciated possible etiologies include cardiorenal syndrome, acute allergic interstitial nephritis creatinine rising, today 3.6, was 3.2 on (02/04), creatinine baseline 0.9 end of December 2017/ beginning January 2018 urine protein 50.0 urine eosinophil count pending -Bladder US: renal parenchymal disease Anemia -Hgb 8.0 today -Hgb was 6.9 on (02/08/18) -F/U repeat iron studies -Monitor, Will consider transfusion Leukocytosis 4 1/2 weeks s/p left hallux partial amputation secondary to gangrene with osteomyelitis 02/12: No leukocytosis, no fevers; Will discontinue antibiotics today (airborne precautions discontinued, Quant gold negative) 02/09: patient had Tmax 100.4 on 02/07. All cultures negative. [facility] to have [facility] WBC scan per Dr. Blancas. Quantiferon negative, sputum culture ordered 02/05: Afebrile WBC 9.8 No bands Blood cultures from 01/31 no growth at 5 days Patient switched to Tigecycline and Meropenem over the weekend 02/02: Afebrile overnight WBC 9 Repeat blood culture from 01/31 negative after 24 hours Continue with Vancomycin and Meropenem. Zyvox and Aztreonem discontinued on per ID Follow up MRI to r/o osteomyelitis 02/01: patient febrile overnight again, Tmax 101 WBC 9.5 antibiotic regimen adjusted by Dr. Blancas: aztreonam 1g q24, vancomycin added on dialysis days (MWF), meropenem q12 IVPB repeat blood culture ordered as well as stool for ova and parasite due to eosinophilia 01/31: Febrile overnight at 102.6F. Started Aztreonam 1Gm IVPB q24H. Currently on: Aztreonam 1Gm IVPB q24H (started 01/30) Zyvox 600mg PO BID (started 01/29) Meropenem 500mg IVPB Q12 (started 01/30) L foot xray 01/31- negative CT chest/abd/pelv 01/30- Bilateral pleural effusion with lower lobe subsegmental atelectasis. Chronic pancreatitis. Mildly dilated main pulmonary artery. Correlate for any history of pulmonary arterial hypertension. Thickened bladder wall. Possible artifact due to outlet obstruction or cystitis. Anasarca. See full report. 01/30: WBC 10.2 today. Last fever on 01/27. Dr. Blancas, ID, consulted- help appreciated SIRS criteria present on admission (01/25): Temperature 101.2F, HR 106 SOFA score approximately 9 (no ABG for PaO2) initial VBG lactate (01/25) 4.1, repeat 1.0 procalcitonin 5.74 suspected possible sources include: line infection from prior PICC line- culture from (01/25) negative bacteremia- blood culture negative after 4 days pneumonia- chest CT negative for infiltrate however patient was dyspneic on admission, sputum culture uncollected urine- (01/25) urine culture negative prior hallux amputation site- recent amputation for osteomyelitis and was on IV abx prior to this admission. Podiatry team, Dr. Logan, consulted- recommendations appreciated patient on antibiotics: Tigecycline 50mg IVPB q12h (started 02/04) (discontinued) Meropenem 500mg IVPB q12h (started 02/04) (discontinued) patient previously on antibiotics: gentamicin 120mg x 1 dose (01/25) vancomycin x 1 dose (01/25) zosyn (01/25- 01/28) zyvox 600mg IVPB 12h (started 01/25) aztreonam 1gam IVPB q8h (started 01/28) medications adjusted due to kidney function Dyspnea (resolved) -02/05: ECHO - EF ~65%, large left pleural effusion, otherwise normal ECHO -02/02: patient underwent echo, follow up results -02/01: chest xray with worsening pulmonary vascular congestion, will check echo -CT Chest: pulmonary vascular congestion with small to moderate bilateral pleural effusions and subjacent atelectasis (see full report) continue lasix 80mg IVP daily -BNP 9070 -no echocardiogram in our EMR -Quantiferon negative Transaminitis - resolved -02/09 AST/ALT 31/38 -02/05: continue downtrending AST 29/ALT 53, Alk Phos 160 -02/02: continue downtrending AST/ALT 60/85 today -01/31: downtrending LFTs after stopping Tylenol. Continue Ultram 50mg PO q6H PRN pain. -01/30: AST stable 142. ALT 129 and AlkP 190 uptrending. Stop Tylenol PRN. Start Ultram 50mg PO q6H PRN pain. -AST/ ALT/ Alk phos increasing, today 175/ 121/180 -T. Bili not elevated at 0.7 -Hepatitis A & B negative, Hepatitis C negative, RPR, HIV negative HTN -Will continue to monitor and adjust as needed -Norvasc 10mg PO daily -Coreg 25mg PO BID DM -ISS Accucheck ACHS -A1c 7.0 in 12/2017 -holding all PO meds currently due to renal function -left hallux amputation site bandaged Left hallux amputation -Procedure performed on last admission -Dr. Logan, podiatry, following while patient in-house Prophylactic measure -Heparin 5,000 unit Q12h (renal dosing) -protonix 40mg IVP daily -SCDs DISPO: Patient medically cleared for discharge home. He was seen by physical therapy who recommended ZAK for dispostion. Awaiting authorization for ZAK. All medical management as per Dr. Mikie Steiner DO PGY-2
[2018-02-14 07:47] LABS: BASO # 0.1 K/uL (0.0-0.2); BASO % 1.4 % (0.0-2.0); EOS % 0.3 % (0.0-4.0); LYMPH % 18.2 % (20.0-40.0); MEAN CELL VOLUME 87.9 fL (80.0-94.0); MEAN CORPUSCULAR HEMOGLOBIN 30.9 pg (27.0-31.0); MEAN CORPUSCULAR HGB CONC 35.1 g/dL (33.0-37.0); MEAN PLATELET VOLUME 7.1 fL (7.2-11.7); MONO # 0.6 K/uL (0.0-0.8); MONO % 12.1 % (0.0-10.0); NEUT # 3.7 K/uL (1.8-7.0); NRBC % 0.2 % (0.0-2.0); RBC 2.58 Mil/uL (4.40-5.90); RED CELL DISTRIBUTION WIDTH 14.9 % (11.5-14.5); WHITE BLOOD COUNT 5.4 K/uL (4.8-10.8)
[2018-02-14 08:08] LABS: ALB/GLOB RATIO 0.9 (1.0-2.1); ALBUMIN 2.8 g/dL (3.5-5.0); CALCIUM 7.7 mg/dl (8.6-10.4)
[2018-02-14] MEDS: (Novolog) Insulin Aspart, Recombinant 100 u/ml 10 ml vial SC SCH ×4 (08:30→21:43)
[2018-02-14] MEDS: Pantoprazole 40 mg EC Tab PO SCH (09:09)
[2018-02-14] MEDS: Saccharomyces Boulardi 250 mg Cap PO SCH ×2 (09:09→17:41)
--- NOTE | 2018-02-14 12:58 | CP.PCM.PN ---
Subjective - Date & Time of Evaluation Date of Evaluation: 02/14/18 Time of Evaluation: 12:57 - Subjective Subjective: Podiatry Progress Note - Dr. Logan 62 year old male patient who is 6 weeks s/p left foot partial hallux amputation seen and evaluated at bedside. Patient is AAOx3 and in NAD. Resting comfortably in his chair at the time of the visit. Patient denies any other pedal complaints at this time. Patient denies N/V/F/C/SOB/CP/pain on posterior calf since last night. Objective - Vital Signs/Intake and Output Vital Signs (last 24 hours): Temp Pulse Resp BP Pulse Ox 98.5 F 66 20 166/76 H 98 02/14/18 07:00 02/14/18 07:00 02/14/18 07:00 02/14/18 09:08 02/14/18 07:00 Intake and Output: 02/14/18 02/14/18 06:59 18:59 Intake Total 500 Balance 500 - Medications Medications: Current Medications Amlodipine Besylate (Norvasc) 10 mg PO DAILY [facility] Last Admin: 02/14/18 09:09 Dose: 10 mg Carvedilol (Coreg) 25 mg PO BID [facility] Last Admin: 02/14/18 09:08 Dose: 25 mg Epoetin Alexandr (Procrit) 10,000 unit IV TTS [facility] Last Admin: 02/13/18 13:57 Dose: Not Given Heparin Sodium (Porcine) (Heparin) 1,000 units IVP ONCE [facility] Last Admin: 02/13/18 11:44 Dose: 1,000 units Insulin Aspart (Novolog) 0 unit SC ACHS [facility] PRN Reason: Protocol Last Admin: 02/14/18 08:30 Dose: 6 units Pantoprazole Sodium (Protonix Ec Tab) 40 mg PO DAILY [facility] Last Admin: 02/14/18 09:09 Dose: 40 mg Saccharomyces Boulardii (Florastor) 250 mg PO BID [facility] Last Admin: 02/14/18 09:09 Dose: 250 mg - Labs Labs: 02/14/18 07:30 02/14/18 07:30 PT 13.2 SECONDS (9.7-12.2) H 02/06/18 06:15 INR 1.2 02/06/18 06:15 APTT 31 SECONDS (21-34) 02/06/18 06:15 - Constitutional Appears: Well, Non-toxic, No Acute Distress - Extremities Exam Additional comments: Left LE focused exam: Vasc: DP/PT 1/4 B/L, Cap refill delayed > 3 sec in all digits, Temp gradient warm to cool. No edema. Neuro: Gross and protective sensation are intact. Derm: Surgical incision site appears clean, dry, well coapted, with no evidence of wound dehiscence, no malodor, no drainage, No clinical signs of active bacterial infection noted. MSK: No pain on palpation at the surgical site. Partially amputated L hallux is noted. - Neurological Exam Neurological Exam: Alert, Awake, Oriented x3 - Psychiatric Exam Psychiatric exam: Normal Affect, Normal Mood Assessment and Plan - Assessment and Plan (Free Text) Assessment: 62 year old male patient seen and evaluated 6 weeks s/p left hallux partial amputation secondary to gangrene and osteomyelitis Plan: Patient seen and evaluated at the bedside Discussed plan in detail with attending Dr. Logan Left hallux dressed using DSD and kerlix Patient is stable from podiatry standpoint Podiatry will continue to follow in house
--- NOTE | 2018-02-14 14:07 | CP.PCM.PN ---
Subjective - Date & Time of Evaluation Date of Evaluation: 02/14/18 Time of Evaluation: 14:04 - Subjective Subjective: alert; no new complaint stable dialysis 02/13 wound care addressed HTN moderately elevated still very swollen Objective - Vital Signs/Intake and Output Vital Signs (last 24 hours): Temp Pulse Resp BP Pulse Ox 98.5 F 66 20 166/76 H 98 02/14/18 07:00 02/14/18 07:00 02/14/18 07:00 02/14/18 09:08 02/14/18 07:00 Intake and Output: 02/14/18 02/14/18 06:59 18:59 Intake Total 500 Balance 500 - Medications Medications: Current Medications Amlodipine Besylate (Norvasc) 10 mg PO DAILY [facility] Last Admin: 02/14/18 09:09 Dose: 10 mg Carvedilol (Coreg) 25 mg PO BID [facility] Last Admin: 02/14/18 09:08 Dose: 25 mg Epoetin Alexandr (Procrit) 10,000 unit IV TTS [facility] Last Admin: 02/13/18 13:57 Dose: Not Given Heparin Sodium (Porcine) (Heparin) 1,000 units IVP ONCE [facility] Last Admin: 02/13/18 11:44 Dose: 1,000 units Insulin Aspart (Novolog) 0 unit SC ACHS [facility] PRN Reason: Protocol Last Admin: 02/14/18 12:25 Dose: 6 units Pantoprazole Sodium (Protonix Ec Tab) 40 mg PO DAILY [facility] Last Admin: 02/14/18 09:09 Dose: 40 mg Saccharomyces Boulardii (Florastor) 250 mg PO BID [facility] Last Admin: 02/14/18 09:09 Dose: 250 mg - Labs Labs: 02/14/18 07:30 02/14/18 07:30 PT 13.2 SECONDS (9.7-12.2) H 02/06/18 06:15 INR 1.2 02/06/18 06:15 APTT 31 SECONDS (21-34) 02/06/18 06:15 - Constitutional Appears: No Acute Distress, Chronically Ill - Head Exam Head Exam: ATRAUMATIC, NORMAL INSPECTION - Eye Exam Eye Exam: EOMI, Normal appearance - Neck Exam Neck Exam: Normal Inspection. absent: Tenderness - Respiratory Exam Respiratory Exam: Clear to Ausculation Bilateral, NORMAL BREATHING PATTERN - Cardiovascular Exam Cardiovascular Exam: REGULAR RHYTHM, +S1 - GI/Abdominal Exam GI & Abdominal Exam: Soft. absent: Tenderness - Extremities Exam Extremities Exam: Pedal Edema. absent: Tenderness - Neurological Exam Neurological Exam: Awake, CN II-XII Intact - Skin Skin Exam: Dry, Warm Assessment and Plan (1) Type 2 diabetes mellitus with diabetic nephropathy Status: Acute (2) Fever Status: Acute (3) Diabetes 1.5, managed as type 2 Status: Acute (4) Nonhealing ulcer of left lower extremity Status: Acute (5) CHF (congestive heart failure) Status: Acute (6) ESRD (end stage renal disease) Status: Acute - Assessment and Plan (Free Text) Plan: increase UF goal with HD EPO recheck iron stores
--- NOTE | 2018-02-14 20:35 | CP.PCM.PN ---
Subjective - Date & Time of Evaluation Date of Evaluation: 02/14/18 Time of Evaluation: 08:00 - Subjective Subjective: clinically same Objective - Vital Signs/Intake and Output Vital Signs (last 24 hours): Temp Pulse Resp BP Pulse Ox 98 F 56 L 20 126/61 100 02/14/18 16:00 02/14/18 16:00 02/14/18 16:00 02/14/18 17:41 02/14/18 16:00 Intake and Output: 02/14/18 02/15/18 18:59 06:59 Intake Total 800 Balance 800 - Medications Medications: Current Medications Amlodipine Besylate (Norvasc) 10 mg PO DAILY [facility] Last Admin: 02/14/18 09:09 Dose: 10 mg Carvedilol (Coreg) 25 mg PO BID [facility] Last Admin: 02/14/18 17:41 Dose: 25 mg Epoetin Alexandr (Procrit) 10,000 unit IV TTS [facility] Last Admin: 02/13/18 13:57 Dose: Not Given Insulin Aspart (Novolog) 0 unit SC ACHS [facility] PRN Reason: Protocol Last Admin: 02/14/18 17:41 Dose: 2 units Pantoprazole Sodium (Protonix Ec Tab) 40 mg PO DAILY [facility] Last Admin: 02/14/18 09:09 Dose: 40 mg Saccharomyces Boulardii (Florastor) 250 mg PO BID [facility] Last Admin: 02/14/18 17:41 Dose: 250 mg - Labs Labs: 02/14/18 07:30 02/14/18 07:30 PT 13.2 SECONDS (9.7-12.2) H 02/06/18 06:15 INR 1.2 02/06/18 06:15 APTT 31 SECONDS (21-34) 02/06/18 06:15 - Constitutional Appears: Well - Head Exam Head Exam: ATRAUMATIC, NORMAL INSPECTION, NORMOCEPHALIC - Eye Exam Eye Exam: EOMI, Normal appearance, PERRL Pupil Exam: NORMAL ACCOMODATION, PERRL - ENT Exam ENT Exam: Mucous Membranes Moist, Normal Exam - Neck Exam Neck Exam: Full ROM, Normal Inspection. absent: Lymphadenopathy - Respiratory Exam Respiratory Exam: Decreased Breath Sounds - Cardiovascular Exam Cardiovascular Exam: REGULAR RHYTHM, +S1, +S2 - GI/Abdominal Exam GI & Abdominal Exam: Soft, Diminished Bowel Sounds - Rectal Exam Rectal Exam: Deferred
--- NOTE | 2018-02-14 21:16 | CP.PCM.PN ---
Subjective - Date & Time of Evaluation Date of Evaluation: 02/14/18 Time of Evaluation: 02:40 - Subjective Subjective: dictated Objective - Vital Signs/Intake and Output Vital Signs (last 24 hours): Temp Pulse Resp BP Pulse Ox 98 F 56 L 20 126/61 100 02/14/18 16:00 02/14/18 16:00 02/14/18 16:00 02/14/18 17:41 02/14/18 16:00 Intake and Output: 02/14/18 02/15/18 18:59 06:59 Intake Total 800 Balance 800 - Medications Medications: Current Medications Amlodipine Besylate (Norvasc) 10 mg PO DAILY [facility] Last Admin: 02/14/18 09:09 Dose: 10 mg Carvedilol (Coreg) 25 mg PO BID [facility] Last Admin: 02/14/18 17:41 Dose: 25 mg Epoetin Alexandr (Procrit) 10,000 unit IV TTS [facility] Last Admin: 02/13/18 13:57 Dose: Not Given Insulin Aspart (Novolog) 0 unit SC ACHS [facility] PRN Reason: Protocol Last Admin: 02/14/18 17:41 Dose: 2 units Pantoprazole Sodium (Protonix Ec Tab) 40 mg PO DAILY [facility] Last Admin: 02/14/18 09:09 Dose: 40 mg Saccharomyces Boulardii (Florastor) 250 mg PO BID [facility] Last Admin: 02/14/18 17:41 Dose: 250 mg - Labs Labs: 02/14/18 07:30 02/14/18 07:30 PT 13.2 SECONDS (9.7-12.2) H 02/06/18 06:15 INR 1.2 02/06/18 06:15 APTT 31 SECONDS (21-34) 02/06/18 06:15
--- NOTE | 2018-02-15 03:09 | PN ---
DATE: 02/14/2018 SUBJECTIVE: The patient was seen today, sitting in the chair after a long time seen him sitting during this long hospitalization. He looked well, and he denied any problems. His left arm swelling was present but has been decreasing, and he had no new complaints. He is off the antibiotics. He was still getting dressing to the foot but he remains afebrile. OBJECTIVE: VITAL SIGNS: His T-max is 98, pulse 56, blood pressure 126/61, respirations are 20. HEENT: Head is atraumatic, normocephalic. NECK: Supple. LUNGS: Clear. HEART: S1, S2 is regular. ABDOMEN: Soft. EXTREMITIES: Left arm, he has AV fistula with swelling in the forearm. Have no edema. Left foot has a dressing. White count is 5.4, hemoglobin 8, hematocrit 22.7, platelet count is 234. His creatinine is coming down to 2.3, and they were planning discharge on him, and I told the resident that there is no need for any antibiotic, and he is fine and his foot is also fine, and he is to continue treatment per Renal. Tiffany Blancas MD
[2018-02-15] MEDS: (Novolog) Insulin Aspart, Recombinant 100 u/ml 10 ml vial SC SCH ×4 (08:18→22:30)
[2018-02-15 08:56] LABS: BASO # 0.1 K/uL (0.0-0.2); BASO % 1.8 % (0.0-2.0); EOS % 0.2 % (0.0-4.0); HEMOGLOBIN 7.8 g/dL (12.0-18.0); LYMPH # 0.9 K/uL (1.0-4.3); LYMPH % 16.7 % (20.0-40.0); MEAN CORPUSCULAR HEMOGLOBIN 30.2 pg (27.0-31.0); MEAN CORPUSCULAR HGB CONC 33.9 g/dL (33.0-37.0); MEAN PLATELET VOLUME 7.5 fL (7.2-11.7); MONO # 0.7 K/uL (0.0-0.8); MONO % 12.3 % (0.0-10.0); NEUT # 3.7 K/uL (1.8-7.0); NRBC % 0.1 % (0.0-2.0); RBC 2.58 Mil/uL (4.40-5.90); RED CELL DISTRIBUTION WIDTH 15.3 % (11.5-14.5); WHITE BLOOD COUNT 5.3 K/uL (4.8-10.8)
[2018-02-15 09:10] LABS: ALB/GLOB RATIO 0.9 (1.0-2.1); ALBUMIN 2.9 g/dL (3.5-5.0)
[2018-02-15] MEDS: Saccharomyces Boulardi 250 mg Cap PO SCH ×2 (09:19→18:27)
[2018-02-15] MEDS: Pantoprazole 40 mg EC Tab PO SCH (09:19)
--- NOTE | 2018-02-15 09:31 | CP.PCM.PN ---
Subjective - Date & Time of Evaluation Date of Evaluation: 02/15/18 Time of Evaluation: 09:27 - Subjective Subjective: PGY-[address] Deluna's service: Pt seen and examined at bedside. Nursing reports no acute events overnight. Interpretation service utilized for translation. Patient reports "feeling good today" and denies acute complaints. Pt for dialysis today. 1 unit of PRBCs will be given during dialysis. Objective - Vital Signs/Intake and Output Vital Signs (last 24 hours): Temp Pulse Resp BP Pulse Ox 97.4 F L 62 20 163/70 H 99 02/15/18 08:10 02/15/18 08:10 02/15/18 08:10 02/15/18 09:18 02/15/18 08:10 Intake and Output: 02/15/18 02/15/18 06:59 18:59 Intake Total 100 Balance 100 - Medications Medications: Current Medications Amlodipine Besylate (Norvasc) 10 mg PO DAILY [facility] Last Admin: 02/15/18 09:19 Dose: 10 mg Carvedilol (Coreg) 25 mg PO BID [facility] Last Admin: 02/15/18 09:18 Dose: 25 mg Epoetin Alexandr (Procrit) 10,000 unit IV TTS [facility] Last Admin: 02/13/18 13:57 Dose: Not Given Insulin Aspart (Novolog) 0 unit SC ACHS [facility] PRN Reason: Protocol Last Admin: 02/15/18 08:18 Dose: 6 units Pantoprazole Sodium (Protonix Ec Tab) 40 mg PO DAILY [facility] Last Admin: 02/15/18 09:19 Dose: 40 mg Saccharomyces Boulardii (Florastor) 250 mg PO BID [facility] Last Admin: 02/15/18 09:19 Dose: 250 mg - Labs Labs: 02/15/18 08:32 02/15/18 08:32 PT 13.2 SECONDS (9.7-12.2) H 02/06/18 06:15 INR 1.2 02/06/18 06:15 APTT 31 SECONDS (21-34) 02/06/18 06:15 - Additional Findings Additional findings: - Constitutional Appears: No Acute Distress - Head Exam Head Exam: ATRAUMATIC, NORMOCEPHALIC - Eye Exam Eye Exam: EOMI - ENT Exam ENT Exam: Mucous Membranes Moist - Respiratory Exam Respiratory Exam: Decreased Breath Sounds, Rales - Cardiovascular Exam Cardiovascular Exam: +S1, +S2 - GI/Abdominal Exam GI & Abdominal Exam: Soft, Normal Bowel Sounds. absent: Tenderness - Extremities Exam Additional comments: left upper extremity AVF site wrapped in clean gauze. Auscultatory bruit present b/l lower extremities with 1+ pitting edema - Neurological Exam Neurological Exam: Alert, Awake - Skin Skin Exam: Warm Assessment and Plan - Assessment and Plan (Free Text) Plan: ESRD -02/08/18: Patient status post left bidirectional brachial artery to antecubital vein fistula placement with Dr. Haro on 02/06/18 -02/01: will check 24 hour urine protein per nephrology -01/31: patient s/p permacath placement with Dr. Haro 01/30. Received dialysis late yesterday. Repeat dialysis this afternoon 01/31. Will have HD MWF. -02/06/18: s/p Left Bidirectional Brachial Artery to Antecubital Vein Fistula Dr. 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 Blancas, [facility], consulted- help appreciated - No antibiotics needed on discharge SIRS criteria present on admission (01/25): Temperature 101.2F, HR 106 SOFA score approximately 9 (no ABG for PaO2) initial VBG lactate (01/25) 4.1, repeat 1.0 procalcitonin 5.74 suspected possible sources include: line infection from prior PICC line- culture from (01/25) negative bacteremia- blood culture negative after 4 days pneumonia- chest CT negative for infiltrate however patient was dyspneic on admission, sputum culture uncollected urine- (01/25) urine culture negative prior hallux amputation site- recent amputation for osteomyelitis and was on IV abx prior to this admission. Podiatry team, Dr. Logan, consulted- recommendations appreciated patient previously on antibiotics: Tigecycline 50mg IVPB q12h (started 02/04) (discontinued) Meropenem 500mg IVPB q12h (started 02/04) (discontinued) gentamicin 120mg x 1 dose (01/25) vancomycin x 1 dose (01/25) zosyn (01/25- 01/28) zyvox 600mg IVPB 12h (started 01/25) aztreonam 1gam IVPB q8h (started 01/28) medications adjusted due to kidney function Dyspnea (resolved) ECHO - EF ~65%, large left pleural effusion, otherwise normal ECHO Chest xray (01/28/18) with worsening pulmonary vascular congestion, will check echo -CT Chest: pulmonary vascular congestion with small to moderate bilateral pleural effusions and subjacent atelectasis (see full report) continue lasix 80mg IVP daily -BNP 9070 -Quantiferon negative Transaminitis - resolved Hepatitis A & B negative, Hepatitis C negative, RPR, HIV negative HTN -Will continue to monitor and adjust as needed -Norvasc 10mg PO daily -Coreg 25mg PO BID [facility] -ISS Accucheck ACHS -A1c 7.0 in 12/2017 -holding all PO meds currently due to renal function -left hallux amputation site bandaged Left hallux amputation -Procedure performed on last admission -Dr. Logan, podiatry, following while patient in-house Prophylactic measure -Heparin 5,000 unit Q12h (renal dosing) -protonix 40mg IVP daily -SCDs DISPO: Patient for dialysis today. One unit of prbcs ordered. Patient medically cleared for discharge home. He was seen by physical therapy who recommended ZAK for dispostion. Pt refused ZAK and would like to go home. Rolling walker prescription, home PT given.
[2018-02-15] MEDS: Epoetin Alfa 10,000 unit/ml Dialysis IV SCH (10:58)
--- NOTE | 2018-02-15 11:28 | CP.PCM.PN ---
Subjective - Date & Time of Evaluation Date of Evaluation: 02/15/18 Time of Evaluation: 11:25 - Subjective Subjective: seen at dialysis try to UF 3500ml Hg low- to receive 1 unit prbcs blood transfusion feels ok, no new complaint Objective - Vital Signs/Intake and Output Vital Signs (last 24 hours): Temp Pulse Resp BP Pulse Ox 97.7 F 63 20 143/63 100 02/15/18 10:00 02/15/18 10:00 02/15/18 10:00 02/15/18 10:45 02/15/18 10:00 Intake and Output: 02/15/18 02/15/18 06:59 18:59 Intake Total 100 Balance 100 - Medications Medications: Current Medications Amlodipine Besylate (Norvasc) 10 mg PO DAILY [facility] Last Admin: 02/15/18 09:19 Dose: 10 mg Carvedilol (Coreg) 25 mg PO BID [facility] Last Admin: 02/15/18 09:18 Dose: 25 mg Epoetin Alexandr (Procrit) 10,000 unit IV TTS [facility] Last Admin: 02/15/18 10:58 Dose: 10,000 unit Insulin Aspart (Novolog) 0 unit SC ACHS [facility] PRN Reason: Protocol Last Admin: 02/15/18 08:18 Dose: 6 units Pantoprazole Sodium (Protonix Ec Tab) 40 mg PO DAILY [facility] Last Admin: 02/15/18 09:19 Dose: 40 mg Saccharomyces Boulardii (Florastor) 250 mg PO BID [facility] Last Admin: 02/15/18 09:19 Dose: 250 mg - Labs Labs: 02/15/18 08:32 02/15/18 08:32 PT 13.2 SECONDS (9.7-12.2) H 02/06/18 06:15 INR 1.2 02/06/18 06:15 APTT 31 SECONDS (21-34) 02/06/18 06:15 - Constitutional Appears: No Acute Distress, Chronically Ill - Head Exam Head Exam: ATRAUMATIC, NORMAL INSPECTION - Eye Exam Eye Exam: EOMI, Normal appearance - Neck Exam Neck Exam: Normal Inspection. absent: Tenderness - Respiratory Exam Respiratory Exam: Clear to Ausculation Bilateral, NORMAL BREATHING PATTERN - Cardiovascular Exam Cardiovascular Exam: REGULAR RHYTHM, +S1 - GI/Abdominal Exam GI & Abdominal Exam: Soft. absent: Tenderness - Extremities Exam Extremities Exam: Normal Inspection. absent: Tenderness - Neurological Exam Neurological Exam: Awake, CN II-XII Intact - Skin Skin Exam: Dry, Warm Assessment and Plan (1) Type 2 diabetes mellitus with diabetic nephropathy Status: Acute (2) Fever Status: Acute (3) Diabetes 1.5, managed as type 2 Status: Acute (4) Nonhealing ulcer of left lower extremity Status: Acute (5) CHF (congestive heart failure) Status: Acute (6) ESRD (end stage renal disease) Status: Acute - Assessment and Plan (Free Text) Plan: same dialysis schedule wound care blood transfusion [facility]As
--- NOTE | 2018-02-15 13:52 | CP.PCM.PN ---
Subjective - Date & Time of Evaluation Date of Evaluation: 02/15/18 Time of Evaluation: 08:00 - Subjective Subjective: clinically same Objective - Vital Signs/Intake and Output Vital Signs (last 24 hours): Temp Pulse Resp BP Pulse Ox 97.8 F 57 L 18 133/63 98 02/15/18 13:30 02/15/18 13:30 02/15/18 13:30 02/15/18 13:30 02/15/18 13:30 Intake and Output: 02/15/18 02/15/18 06:59 18:59 Intake Total 100 325 Balance 100 325 - Medications Medications: Current Medications Amlodipine Besylate (Norvasc) 10 mg PO DAILY [facility] Last Admin: 02/15/18 09:19 Dose: 10 mg Carvedilol (Coreg) 25 mg PO BID [facility] Last Admin: 02/15/18 09:18 Dose: 25 mg Epoetin Alexandr (Procrit) 10,000 unit IV TTS [facility] Last Admin: 02/15/18 10:58 Dose: 10,000 unit Insulin Aspart (Novolog) 0 unit SC ACHS [facility] PRN Reason: Protocol Last Admin: 02/15/18 12:19 Dose: Not Given Pantoprazole Sodium (Protonix Ec Tab) 40 mg PO DAILY [facility] Last Admin: 02/15/18 09:19 Dose: 40 mg Saccharomyces Boulardii (Florastor) 250 mg PO BID [facility] Last Admin: 02/15/18 09:19 Dose: 250 mg - Labs Labs: 02/15/18 08:32 02/15/18 08:32 PT 13.2 SECONDS (9.7-12.2) H 02/06/18 06:15 INR 1.2 02/06/18 06:15 APTT 31 SECONDS (21-34) 02/06/18 06:15 - Constitutional Appears: Well - Head Exam Head Exam: ATRAUMATIC, NORMAL INSPECTION, NORMOCEPHALIC - Eye Exam Eye Exam: EOMI, Normal appearance, PERRL Pupil Exam: NORMAL ACCOMODATION, PERRL - ENT Exam ENT Exam: Mucous Membranes Moist, Normal Exam - Neck Exam Neck Exam: Full ROM, Normal Inspection. absent: Lymphadenopathy - Respiratory Exam Respiratory Exam: Decreased Breath Sounds - Cardiovascular Exam Cardiovascular Exam: REGULAR RHYTHM, +S1, +S2 - GI/Abdominal Exam GI & Abdominal Exam: Soft, Diminished Bowel Sounds - Rectal Exam Rectal Exam: Deferred
[2018-02-15 14:13] VITALS: RESP 20
--- NOTE | 2018-02-15 20:49 | CP.PCM.PN ---
Subjective - Date & Time of Evaluation Date of Evaluation: 02/15/18 Time of Evaluation: 03:00 - Subjective Subjective: dictated Objective - Vital Signs/Intake and Output Vital Signs (last 24 hours): Temp Pulse Resp BP Pulse Ox 98.4 F 59 L 20 126/62 100 02/15/18 15:59 02/15/18 15:59 02/15/18 15:59 02/15/18 18:27 02/15/18 15:59 Intake and Output: 02/15/18 02/16/18 18:59 06:59 Intake Total 725 Output Total 3200 Balance -2475 - Medications Medications: Current Medications Amlodipine Besylate (Norvasc) 10 mg PO DAILY [facility] Last Admin: 02/15/18 09:19 Dose: 10 mg Carvedilol (Coreg) 25 mg PO BID [facility] Last Admin: 02/15/18 18:27 Dose: 25 mg Epoetin Alexandr (Procrit) 10,000 unit IV TTS [facility] Last Admin: 02/15/18 10:58 Dose: 10,000 unit Insulin Aspart (Novolog) 0 unit SC ACHS [facility] PRN Reason: Protocol Last Admin: 02/15/18 18:27 Dose: 6 units Pantoprazole Sodium (Protonix Ec Tab) 40 mg PO DAILY [facility] Last Admin: 02/15/18 09:19 Dose: 40 mg Saccharomyces Boulardii (Florastor) 250 mg PO BID [facility] Last Admin: 02/15/18 18:27 Dose: 250 mg - Labs Labs: 02/15/18 08:32 02/15/18 08:32 PT 13.2 SECONDS (9.7-12.2) H 02/06/18 06:15 INR 1.2 02/06/18 06:15 APTT 31 SECONDS (21-34) 02/06/18 06:15
--- NOTE | 2018-02-16 01:21 | PN ---
DATE: 02/15/2018 SUBJECTIVE: The patient was wondering whether he is going today or tomorrow. He feels better. He does not offer any complaints, but his left arm still remains swollen with the graft was placed. He has no cough. No chest pain. No shortness of breath. PHYSICAL EXAMINATION: VITAL SIGNS: T-max is 98.4, pulse 59, blood pressure 126/62, respirations are 20. HEENT: Head is atraumatic. NECK: Supple. LUNGS: Clear. HEART: S1, S2 are regular. ABDOMEN: Soft, nontender. EXTREMITIES: Left foot is unremarkable. LABORATORY DATA: He remains anemic. White count is 5.3, hemoglobin 7.8, hematocrit is 23, platelets are 242. His anion gap is 37. Creatine is 2.7, still remains elevated. His sugars are running high now. MEDICATIONS: He is on Norvasc, Coreg, Procrit, Novolog, and Florastor. ASSESSMENT AND PLAN: Since he is on dialysis, I think he will need insulin at night if the sugars continue to increase. We will follow. But at this time, he does not need any antibiotics, and the left foot is improving according to the service crew supervisor. Tiffany Blancas MD
--- NOTE | 2018-02-16 05:57 | CP.PCM.PN ---
Subjective - Date & Time of Evaluation Date of Evaluation: 02/16/18 Time of Evaluation: 05:56 - Subjective Subjective: PGY-[address] Deluna's service Pt seen and examined at bedside. Nursing reports no acute events overnight. Patient reports tolerating dialysis and blood transfusion well yesterday. Denies any acute complaints. Patient denies headache, fever, chills, chest pain , palpitations, or SOB. Objective - Vital Signs/Intake and Output Vital Signs (last 24 hours): Temp Pulse Resp BP Pulse Ox 98.1 F 56 L 20 155/70 H 99 02/16/18 00:29 02/16/18 00:29 02/16/18 00:29 02/16/18 00:29 02/16/18 00:29 Intake and Output: 02/15/18 02/16/18 18:59 06:59 Intake Total 725 Output Total 3200 Balance -2475 - Medications Medications: Current Medications Amlodipine Besylate (Norvasc) 10 mg PO DAILY [facility] Last Admin: 02/15/18 09:19 Dose: 10 mg Carvedilol (Coreg) 25 mg PO BID [facility] Last Admin: 02/15/18 18:27 Dose: 25 mg Epoetin Alexandr (Procrit) 10,000 unit IV TTS [facility] Last Admin: 02/15/18 10:58 Dose: 10,000 unit Insulin Aspart (Novolog) 0 unit SC ACHS [facility] PRN Reason: Protocol Last Admin: 02/15/18 22:30 Dose: 2 units Pantoprazole Sodium (Protonix Ec Tab) 40 mg PO DAILY [facility] Last Admin: 02/15/18 09:19 Dose: 40 mg Saccharomyces Boulardii (Florastor) 250 mg PO BID [facility] Last Admin: 02/15/18 18:27 Dose: 250 mg - Labs Labs: 02/15/18 08:32 02/15/18 08:32 PT 13.2 SECONDS (9.7-12.2) H 02/06/18 06:15 INR 1.2 02/06/18 06:15 APTT 31 SECONDS (21-34) 02/06/18 06:15 - Additional Findings Additional findings: - Constitutional Appears: No Acute Distress - Head Exam Head Exam: ATRAUMATIC, NORMOCEPHALIC - Eye Exam Eye Exam: EOMI - ENT Exam ENT Exam: Mucous Membranes Moist - Respiratory Exam Respiratory Exam: Decreased Breath Sounds - Cardiovascular Exam Cardiovascular Exam: +S1, +S2 - GI/Abdominal Exam GI & Abdominal Exam: Soft, Normal Bowel Sounds. absent: Tenderness - Extremities Exam Additional comments: left upper extremity AVF site wrapped in clean gauze. Auscultatory bruit present b/l lower extremities with 1+ pitting edema - Neurological Exam Neurological Exam: Alert, Awake - Skin Skin Exam: Warm Assessment and Plan - Assessment and Plan (Free Text) Plan: ESRD -02/08/18: Patient status post left bidirectional brachial artery to antecubital vein fistula placement with Dr. Haro on 02/06/18 -02/01: will check 24 hour urine protein per nephrology -01/31: patient s/p permacath placement with Dr. Haro 01/30. Received dialysis late yesterday. Repeat dialysis this afternoon 01/31. Will have HD MWF. -02/06/18: s/p Left Bidirectional Brachial Artery to Antecubital Vein Fistula Dr. 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 Blancas, ID, consulted- help appreciated - No antibiotics needed on discharge SIRS criteria present on admission (01/25): Temperature 101.2F, HR 106 SOFA score approximately 9 (no ABG for PaO2) initial VBG lactate (01/25) 4.1, repeat 1.0 procalcitonin 5.74 suspected possible sources include: line infection from prior PICC line- culture from (01/25) negative bacteremia- blood culture negative after 4 days pneumonia- chest CT negative for infiltrate however patient was dyspneic on admission, sputum culture uncollected urine- (01/25) urine culture negative prior hallux amputation site- recent amputation for osteomyelitis and was on IV abx prior to this admission. Podiatry team, Dr. Logan, consulted- recommendations appreciated patient previously on antibiotics: Tigecycline 50mg IVPB q12h (started 02/04) (discontinued) Meropenem 500mg IVPB q12h (started 02/04) (discontinued) gentamicin 120mg x 1 dose (01/25) vancomycin x 1 dose (01/25) zosyn (01/25- 01/28) zyvox 600mg IVPB 12h (started 01/25) aztreonam 1gam IVPB q8h (started 01/28) medications adjusted due to kidney function Dyspnea (resolved) ECHO - EF ~65%, large left pleural effusion, otherwise normal ECHO Chest xray (01/28/18) with worsening pulmonary vascular congestion, will check echo -CT Chest: pulmonary vascular congestion with small to moderate bilateral pleural effusions and subjacent atelectasis (see full report) continue lasix 80mg IVP daily -BNP 9070 -Quantiferon negative Transaminitis - resolved Hepatitis A & B negative, Hepatitis C negative, RPR, HIV negative HTN -Will continue to monitor and adjust as needed -Norvasc 10mg PO daily -Coreg 25mg PO BID DM -ISS Accucheck ACHS -A1c 7.0 in 12/2017 -left hallux amputation site bandaged Left hallux amputation -Procedure performed on last admission -Dr. Logan, podiatry, following while patient in-house Prophylactic measure -Heparin 5,000 unit Q12h (renal dosing) -protonix 40mg IVP daily -SCDs DISPO: Patient medically cleared for discharge home. He was seen by physical therapy who recommended [facility] for disposition. Pt refused ZAK and would like to go home. Rolling walker prescription, home PT, wound care given.
[2018-02-16 06:47] LABS: BASO # 0.1 K/uL (0.0-0.2); HEMOGLOBIN 8.7 g/dL (12.0-18.0); LYMPH # 0.9 K/uL (1.0-4.3); LYMPH % 17.1 % (20.0-40.0); MEAN CELL VOLUME 87.6 fL (80.0-94.0); MEAN CORPUSCULAR HGB CONC 34.2 g/dL (33.0-37.0); MEAN PLATELET VOLUME 7.8 fL (7.2-11.7); MONO # 0.7 K/uL (0.0-0.8); MONO % 13.3 % (0.0-10.0); NEUT # 3.7 K/uL (1.8-7.0); NEUT % 67.6 % (50.0-75.0); NRBC % 0.7 % (0.0-2.0); RBC 2.9 Mil/uL (4.40-5.90); RED CELL DISTRIBUTION WIDTH 16.4 % (11.5-14.5); WHITE BLOOD COUNT 5.5 K/uL (4.8-10.8)
[2018-02-16 07:28] LABS: ALB/GLOB RATIO 0.9 (1.0-2.1); ALBUMIN 2.9 g/dL (3.5-5.0); CALCIUM 7.8 mg/dl (8.6-10.4)
[2018-02-16] MEDS: (Novolog) Insulin Aspart, Recombinant 100 u/ml 10 ml vial SC SCH ×2 (08:14→12:12)
[2018-02-16 08:25] VITALS: BP 159/69; PULSE 59; TEMP 98.2; O2SAT 97
[2018-02-16] MEDS: Pantoprazole 40 mg EC Tab PO SCH (09:13)
[2018-02-16] MEDS: Saccharomyces Boulardi 250 mg Cap PO SCH (09:13)
--- NOTE | 2018-02-16 11:30 | CP.PCM.PN ---
Subjective - Date & Time of Evaluation Date of Evaluation: 02/16/18 Time of Evaluation: 11:28 - Subjective Subjective: Podiatry Progress Note - Dr. Logan 62 year old male patient who is 6 weeks s/p left foot partial hallux amputation seen and evaluated at bedside. Patient is AAOx3 and in NAD. Resting comfortably in his chair at the time of the visit. Patient denies any other pedal complaints at this time. Reports that he maybe going home today. Patient denies N/V/F/C/SOB/CP/pain on posterior calf since last night. Objective - Vital Signs/Intake and Output Vital Signs (last 24 hours): Temp Pulse Resp BP Pulse Ox 98.2 F 59 L 20 159/69 H 97 02/16/18 08:24 02/16/18 08:24 02/16/18 08:24 02/16/18 09:13 02/16/18 08:24 - Medications Medications: Current Medications Amlodipine Besylate (Norvasc) 10 mg PO DAILY [facility] Last Admin: 02/16/18 09:13 Dose: 10 mg Carvedilol (Coreg) 25 mg PO BID [facility] Last Admin: 02/16/18 09:13 Dose: 25 mg Epoetin Alexandr (Procrit) 10,000 unit IV TTS [facility] Last Admin: 02/15/18 10:58 Dose: 10,000 unit Insulin Aspart (Novolog) 0 unit SC ACHS [facility] PRN Reason: Protocol Last Admin: 02/16/18 08:14 Dose: 8 units Pantoprazole Sodium (Protonix Ec Tab) 40 mg PO DAILY [facility] Last Admin: 02/16/18 09:13 Dose: 40 mg Saccharomyces Boulardii (Florastor) 250 mg PO BID [facility] Last Admin: 02/16/18 09:13 Dose: 250 mg - Labs Labs: 02/16/18 06:38 02/16/18 06:38 PT 13.2 SECONDS (9.7-12.2) H 02/06/18 06:15 INR 1.2 02/06/18 06:15 APTT 31 SECONDS (21-34) 02/06/18 06:15 - Constitutional Appears: Well, Non-toxic, No Acute Distress - Extremities Exam Additional comments: Left LE focused exam: Vasc: DP/PT 1/4 B/L, Cap refill delayed > 3 sec in all digits, Temp gradient warm to cool. No edema. Neuro: Gross and protective sensation are intact. Derm: Surgical incision site appears clean, dry, well coapted, with no evidence of wound dehiscence, no malodor, no drainage, No clinical signs of active bacterial infection noted. MSK: No pain on palpation at the surgical site. Partially amputated L hallux is noted. - Neurological Exam Neurological Exam: Alert, Awake, Oriented x3 - Psychiatric Exam Psychiatric exam: Normal Affect, Normal Mood Assessment and Plan - Assessment and Plan (Free Text) Assessment: 62 year old male patient seen and evaluated 6 weeks s/p left hallux partial amputation secondary to gangrene and osteomyelitis Plan: Patient seen and evaluated at the bedside Discussed plan in detail with attending Dr. Logan Left hallux dressed using DSD and kerlix Patient is stable from podiatry standpoint Podiatry will continue to follow in house
== END 2018-02-16 16:00 | disposition home or self-care (01) | DRG 581 ==
LOC: C.ER 23:47 → C.9E 01-25 01:15 → C.5S 01-25 06:44
PROVIDERS: ADMIT Internal Medicine Nephrology; ATTEND Internal Medicine Nephrology
PROC: 0JH63XZ Insertion of Tunneled Vascular Access Device into Chest Subcutaneous Tissue and Fascia, Percutaneous Approach (ICD-10-PCS; 2018-01-30)
PROC: 02HV33Z Insertion of Infusion Device into Superior Vena Cava, Percutaneous Approach (ICD-10-PCS; 2018-01-30)
PROC: 03180ZF Bypass Left Brachial Artery to Lower Arm Vein, Open Approach (ICD-10-PCS; principal; 2018-02-06 11:30)
DX: A41.9 Sepsis, unspecified organism (principal); J18.9 Pneumonia, unspecified organism; N17.0 Acute kidney failure with tubular necrosis; E11.21 Type 2 diabetes mellitus with diabetic nephropathy; E11.22 Type 2 diabetes mellitus with diabetic chronic kidney disease; E11.52 Type 2 diabetes mellitus with diabetic peripheral angiopathy with gangrene; E11.622 Type 2 diabetes mellitus with other skin ulcer; E11.69 Type 2 diabetes mellitus with other specified complication; I13.2 Hypertensive heart and chronic kidney disease with heart failure and with stage 5 chronic kidney disease, or end stage renal disease; I50.9 Heart failure, unspecified; J98.11 Atelectasis; L03.116 Cellulitis of left lower limb; L03.115 Cellulitis of right lower limb; L97.929 Non-pressure chronic ulcer of unspecified part of left lower leg with unspecified severity; N18.6 End stage renal disease; D64.9 Anemia, unspecified; D72.1 Eosinophilia; E78.00 Pure hypercholesterolemia, unspecified; E78.5 Hyperlipidemia, unspecified; I27.21 Secondary pulmonary arterial hypertension; K86.1 Other chronic pancreatitis; Y95 Nosocomial condition; Z89.422 Acquired absence of other left toe(s)